=== PATIENT | female | born 1955 | race Caucasian/White ===

== ENCOUNTER → 2016-08-17 | Outpatient (CLI) | payer BC ==
--- NOTE | 2016-08-17 12:48 | MR ---
EXAMINATION TYPE: MR brain wo/w con DATE OF EXAM: 08/17/2016 8:16 AM COMPARISON: 02/04/2016 HISTORY: Left-sided facial nerve disorder left-sided face pain CONTRAST: Performed utilizing 10 mL intravenous MultiHance gadolinium contrast. TECHNIQUE: Multiplanar, multiecho imaging on a 3.0 Brandee magnet is performed through the brain. Stud y is performed within 24 hours of arrival to the hospital. The craniovertebral junction is normal. The pituitary is normal. Diffusion-weighted imaging is performed. No abnormal hyperintensity is present to suggest an acute i ntracranial infarct or acute ischemic change. Signal within the brain appears normal. No abnormal enhancement along the facial nerve distribution i s identified. Internal auditory canals and cerebellar pontine angles are normal. Ventricles and sulci are appropriate for the patient age. IMPRESSIONS: 1. Unremarkable pre and postcontrast MRI brain
== END ==
LOC: RADMRIMAIN 07:30
PROVIDERS: ATTEND Psychiatry & Neurology Neurology
DX: R51 Headache (principal); G51.9 Disorder of facial nerve, unspecified; Z91.041 Radiographic dye allergy status
CPT/HCPCS: 70553; A9577

== ENCOUNTER → 2016-10-28 | Outpatient (CLI) | payer BC ==
--- NOTE | 2016-10-31 10:58 | PE ---
Nuclear medicine PET/CT HISTORY: Solitary pulmonary nodule Patient received 13 mCi F-18 FDG intravenously. Delayed scanning performed from the skull base throug h the mid thighs. Localization and attenuation correction CT scan was performed. Correlation to CT of the chest 19 May 2016 Cavitary lesion in the left upper lobe is again noted. There is mild associated hypermetabolic uptake , SUV 2.2. Extensive emphysematous changes are present. There is no mediastinal, axillary, or hilar a denopathy. The heart is enlarged. Abdomen pelvis: No suspicious mass. No suspicious hypermetabolic uptake. Patient is post cholecystect rigoberto. Bowel uptake in the pelvis felt likely to be physiologic. Osseous structures: Degenerative disc changes, facet arthropathy noted at the lower lumbar spine. No suspicious hypermetabolic uptake IMPRESSION: Mild uptake in the left upper lobe lung nodule as described. Follow-up suggested.
== END | disposition home or self-care (01) ==
LOC: RADPETMAIN 08:05
PROVIDERS: ATTEND Internal Medicine Critical Care Medicine
DX: R91.1 Solitary pulmonary nodule (principal)
CPT/HCPCS: 78815; A9552

== ENCOUNTER 2016-11-22 10:12 | Day surgery (SDC) | payer BC ==
[2016-11-17 15:25] VITALS: BMI 18.6
[~2016-11-22 10:12] MED LIST: ALBUTEROL NEB (CONC) 2.5 MG/0.5 ML INHALATION ONE; ATROPINE SULFATE 0.4 MG/ML 1 ML VIAL IM ONE; DEXAMETHASONE SOD PHOSPHATE 10 MG/ML 1 ML VIAL IV ONE; HYDROmorphone 1 MG/ML 1 ML SYRINGE IVP PRN; LACTATED RINGERS 1,000 ML IV ONE; LACTATED RINGERS 1,000 ML IV SCH; LIDOCAINE 1% 20 ML VIAL (10MG/ML) FOR IV START INTRADERMA PRN; LIDOCAINE 2% (PF) 20 MG/ML 10ML INHALATION ONE; MIDAZOLAM 2 MG/2 ML VIAL IV PRN; ONDANSETRON 4 MG/2 ML VIAL IVP ONE; SCOPOLAMINE 1.5MG/72HR PATCH TRANSDERM ONE
[2016-11-22 10:41] VITALS: RESP 16
--- NOTE | 2016-11-22 12:07 | CT ---
EXAMINATION TYPE: CT Chest wo con Veran Protocol DATE OF EXAM: 11/22/2016 COMPARISON: PET/CT October 28, 2016 HISTORY: Solitary pulmonary nodule CT DLP: 511 mGycm Automated exposure control for dose reduction was used. FINDINGS: CT scan of the chest is performed without contrast using Veran protocol for bronchoscopy planning an d not for diagnostic purposes. There is background of moderate emphysematous change redemonstrated. There is 8mm spiculated nodule i n the left upper lobe redemonstrated. Dependent atelectatic change in both lower lobes is present. Mo derate calcified atherotic change in aortic arch is seen. Scattered calcifications in left breast or surgical clips are felt present. IMPRESSION: ABOVE
[2016-11-22] MEDS ORDERED: SUCCINYLCHOLINE CHLORIDE 100 MG/5 ML SYR IV ONE (12:35)
[2016-11-22] MEDS ORDERED: MIDAZOLAM 2 MG/2 ML VIAL ONE (12:35)
[2016-11-22] MEDS ORDERED: GLYCOPYRROLATE 0.2 MG/ML 2 ML VIAL ONE (12:35)
[2016-11-22] MEDS ORDERED: NEOSTIGMINE 1 MG/ML 10 ML VIAL ONE (12:35)
[2016-11-22] MEDS ORDERED: ROCURONIUM BROMIDE 10 MG/ML 10 ML VIAL IV ONE (12:35)
[2016-11-22] MEDS ORDERED: PROPOFOL 10 MG/ML 20 ML VIAL IV ONE (12:35)
[2016-11-22 13:56] VITALS: TEMP 97.4
--- NOTE | 2016-11-22 14:33 | XR ---
EXAMINATION TYPE: XR chest 1V DATE OF EXAM: 11/22/2016 COMPARISON: CT chest earlier today HISTORY: Post bronchoscopy TECHNIQUE: Single AP portable frontal upright view of the chest is obtained. FINDINGS: There is background chronic emphysematous change. New opacity left lung bases suggestive o f edema and/or infiltrates. Right lung is clear. The cardiac silhouette size is within normal limits with atherosclerotic thoracic aorta. The osseous structures are demineralized. IMPRESSION: Chronic emphysematous change with new left basilar edema and/or infiltrates. No evidence of sizable pneumothorax after bronchoscopy with left-sided sampling.
[2016-11-22 15:03] VITALS: BP 114/56; PULSE 73
[2016-11-22 19:19] LABS: RBC, Body Fluid 380800 /uL
--- NOTE | 2016-11-23 08:06 | PCN ---
DATE OF PROCEDURE: PROCEDURE: Navigational bronchoscopy. PREOPERATIVE DIAGNOSIS: Left upper lobe pulmonary nodule. POSTOPERATIVE DIAGNOSIS: Left upper lobe pulmonary nodule. Procedure was done by Dr. De La Cruz and Dr. Cifuentes. It was done in the operating room, Room #4. It was done under general anesthesia. There was informed consent and universal timeout. After the patient was adequately under the effects of general anesthesia, intubated, the bronchoscope was inserted through the bronchoscope adapter, connected to the endotracheal tube. We evaluated the left upper lobe. Prior to this we used the [employer] software to navigate and locate the lesion in the left upper lobe. We were able to locate the segment that we were interested in. Unfortunately, after multiple attempts and after more than an hour of attempting to adequately localize the lesion and do biopsies, needles and so forth, we were not able to adequately localize this lesion within the region. Hence, we went ahead and took a standard bronchoscope. We used a standard brush and brushed left upper lobe. We brushed those segments that we thought were where the lesion might be. We also washed the left upper lobe. We used multiple devices with the [employer] System. We used the biopsy forceps. We used the needle biopsy and we used also the flexible navigational scope. Despite all of this and despite a long time attempting to try to localize the lesion we were not able to do so. We will order a chest x-ray on this patient to rule out complication. There was no significant bleeding. There was no immediate complication. She was adequately stable throughout the entire procedure. I will speak to her let him know that we had some difficulty with localization and will just wait for sampling that we did.
== END 2016-11-22 15:12 | disposition home or self-care (01) ==
LOC: ORWHC2ENDO 10:12
PROVIDERS: ATTEND Internal Medicine Critical Care Medicine
DX: R91.1 Solitary pulmonary nodule (principal); J44.9 Chronic obstructive pulmonary disease, unspecified; M94.0 Chondrocostal junction syndrome [Tietze]; M35.00 Sjogren syndrome, unspecified; K21.9 Gastro-esophageal reflux disease without esophagitis; Z79.51 Long term (current) use of inhaled steroids; Z79.899 Other long term (current) drug therapy; Z88.0 Allergy status to penicillin; Z88.8 Allergy status to other drugs, medicaments and biological substances; Z88.1 Allergy status to other antibiotic agents; Z91.041 Radiographic dye allergy status; Z87.891 Personal history of nicotine dependence
CPT/HCPCS: 88104; 88108; 88305; 89050; 87070; 87205; 71010; 71250; 31628; 31623; 31627; J2250; J1100; J2710; J2405; J0330; J2704; 31624

== ENCOUNTER → 2017-03-12 | Outpatient (CLI) | payer BC ==
--- NOTE | 2017-03-12 09:40 | CT ---
EXAMINATION TYPE: CT chest w con DATE OF EXAM: 03/12/2017 COMPARISON: Prior CT chest 11/22/2016 HISTORY: Patient complains of difficulty breathing. Patient displays cough at time of exam. Follow up for known masses. CT DLP: 269 mGycm Automated exposure control for dose reduction was used. CONTRAST: CT scan of the chest is performed with IV Contrast, patient injected with 100 mL of Omnipaque 300. FINDINGS: LUNGS: The cavitary lesion in the left upper lobe has decreased in size, no central lucency persists, nodule measures approximately 7 to 8 mm by 14 mm as compared to prior when it measured approximately 10 to 11 mm by 19 mm. Extensive emphysematous changes are again noted. MEDIASTINUM: There are no greater than 1 cm hilar or mediastinal lymph nodes. No pericardial effusi on is seen. AORTA: No additional significant abnormality is seen. OTHER: No additional significant abnormality is seen. IMPRESSION: Cavitation has resolved in the left upper lobe nodule. Follow-up to assess for resolutio n. Emphysema.
== END | disposition home or self-care (01) ==
LOC: RADCTMAIN 08:26
PROVIDERS: ATTEND Internal Medicine Critical Care Medicine
DX: J43.9 Emphysema, unspecified (principal); R91.1 Solitary pulmonary nodule
CPT/HCPCS: 71260; Q9967

== ENCOUNTER 2017-06-05 11:50 | Inpatient (IN) | payer BC ==
[2017-06-05] MEDS ORDERED: IPRATROPIUM-ALBUTEROL 3 ML NEB INHALATION PRN (14:03)
[2017-06-05] MEDS ORDERED: methylPREDNISolone SOD SUCCI 125 MG/2 ML VIAL IV STA (14:19)
[2017-06-05] MEDS: AZITHROMYCIN 500 MG TAB PO SCH (14:41)
[2017-06-05] MEDS: HYDROXYCHLOROQUINE SULFATE 200 MG TAB PO SCH (14:41)
[2017-06-05] MEDS: PANTOPRAZOLE 40 MG TABLET PO SCH (14:42)
[2017-06-05] MEDS: SODIUM CHLORIDE 0.9% 1,000 ML IV SCH (14:42)
[2017-06-05] MEDS: cefTRIAXone IN SWFI 1,000 MG/10 ML SYRINGE IVP SCH (14:49)
[2017-06-05 15:17] LABS: HCT 44.3 % (34.0-46.0); HGB 14.5 gm/dL (11.4-16.0); MCH 30.2 pg (25.0-35.0); MCHC 32.7 g/dL (31.0-37.0); MCV 92.5 fL (80.0-100.0); Mean Platelet Volume 7.2; Platelet Count 111 k/uL (150-450); RBC 4.79 m/uL (3.80-5.40); RDW 14.4 % (11.5-15.5); WBC 3.8 k/uL (3.8-10.6)
[2017-06-05 15:21] LABS: ALT 39 U/L (9-52); AST 24 U/L (14-36); Alkaline Phosphatase 69 U/L (38-126); Anion Gap 10 mmol/L; Blood Urea Nitrogen 19 mg/dL (7-17); Calcium 9.3 mg/dL (8.4-10.2); Carbon Dioxide 29 mmol/L (22-30); Chloride 97 mmol/L (98-107); Glucose 91 mg/dL (74-99); Potassium 4.3 mmol/L (3.5-5.1); Sodium 136 mmol/L (137-145); Total Bilirubin 0.7 mg/dL (0.2-1.3); Total Protein 6.5 g/dL (6.3-8.2)
[2017-06-05 15:46] LABS: Lymphocytes # (M) 0.72 k/uL (1.0-4.8); Monocytes # (M) 0.27 k/uL (0-1.0); Neutrophils # (M) 2.81 k/uL (1.3-7.7); Neutrophils % (M) 74 %; Nucleated Red Blood Cells 0 /100 WBC (0-0); Polychromasia Present; Total Cells Counted 100
[2017-06-05] MEDS: IPRATROPIUM-ALBUTEROL 3 ML NEB INHALATION SCH ×2 (16:15→19:30)
[2017-06-05 17:04] LABS: Glucose,Whole Blood 104 mg/dL (75-99)
[2017-06-05] MEDS: INSULIN ASPART 100 UNIT/ML 1 ML 10 ML VIAL SQ SCH ×2 (17:28→21:36)
[2017-06-05] MEDS: methylPREDNISolone SOD SUCCI 125 MG/2 ML VIAL IV SCH ×2 (17:48→23:46)
[2017-06-05] MEDS: FORMOTEROL FUMARATE 20 MCG/2 ML NEBU INHALATION SCH (19:30)
[2017-06-05] MEDS ORDERED: BUDESONIDE 1 MG/2 ML NEBU INHALATION SCH (20:00)
[2017-06-05 21:12] LABS: Glucose,Whole Blood 221 mg/dL (75-99)
[2017-06-05] MEDS: GABAPENTIN 300 MG CAP PO SCH (21:35)
[2017-06-05] MEDS: HEPARIN SODIUM,PORCINE 5,000 UNIT/ML 1 ML VIAL SQ SCH (21:35)
[2017-06-05] MEDS: buPROPion SR 100 MG TABLET.ER PO SCH (21:35)
[2017-06-05 22:31] LABS: Hemoglobin A1C 5.8 % (4.0-6.0)
--- NOTE | 2017-06-05 22:45 | P.HPIM ---
History of Present Illness H&P Date: 06/05/17 Chief Complaint: Shortness of breath. direct admit from pulmonary clinic Patient is a 62-year-old female with known history of COPD on home oxygen, solitary pulmonary nodule followed by pulmonary, GERD and other medical problems was sent from pulmonary clinic due to pneumonia and COPD exacerbation Patient has been having worsening short of breath with subjective fevers at home. Patient went to see Dr. De La Cruz today and patient had chest x-ray showed pneumonia. Patient was sent to Hospital for further management. Otherwise patient denied any nausea vomiting or abdominal pain. No sick contacts. No recent travel. Patient was started on antibiotics in the form of azithromycin and ceftriaxone.. Patient was started on methylprednisolone and breathing treatments. Review of Systems Constitutional: Patient denies any fever or chills . No generalized weakness or weight loss. Abdomen: Patient denied nausea vomiting and diarrhea and abdominal pain. Cardiovascular: Patient denies any chest pain or short of breath no palpitations. Respiratory: Cough without sputum production. Positive shortness of breath Neurologic: Patient denied any numbness or tingling headache. Musculoskeletal: Patient denies any complaints of joint swelling or deformity. Skin: Negative Psychiatric: Negative Endocrine: No heat or cold intolerance. No recent weight gain. Genitourinary: No dysuria or hematuria. All other 14 point ROS negative except the above Past Medical History Past Medical History: COPD, GERD/Reflux, Pneumonia, Respiratory Disorder Additional Past Medical History / Comment(s): L/R lung nodules being monitored, home O2 at 2L/NC ATC mostly lately, SJORGEN'S SYNDROME, History of Any Multi-Drug Resistant Organisms: None Reported Past Surgical History: Cholecystectomy, Hysterectomy, Orthopedic Surgery Additional Past Surgical History / Comment(s): Bronchoscopies with bx, [place] wrist carpal tunnel, TMJ surgery, L neck cyst removed, colonoscopy. Past Anesthesia/Blood Transfusion Reactions: Previous Problems w/ Anesthesia Additional Past Anesthesia/Blood Transfusion Reaction / Comment(s): SLOW TO WAKE UP Smoking Status: Former smoker - Past Family History Father Family Medical History: Cancer Additional Family Medical History / Comment(s): LUNG Mother Family Medical History: Cancer Additional Family Medical History / Comment(s): BREAST Medications and Allergies Home Medications Medication Instructions Recorded Confirmed Type Gabapentin [Neurontin] 300 mg PO HS 03/29/15 06/05/17 History Hydroxychloroquine Sulfate 200 mg PO DAILY 03/29/15 06/05/17 History [Plaquenil] Pantoprazole Sodium [Protonix] 40 mg PO DAILY 03/29/15 06/05/17 History Fluticasone/Salmeterol [Advair 1 inhalation PO RT-BID 05/31/16 06/05/17 History 500-50 Diskus] Levalbuterol Tartrate [Xopenex Hfa 1 dose INHALATION RT-DAILY 05/31/16 06/05/17 History Inhaler] Tiotropium 18 Mcg/Puff [Spiriva] 1 cap INHALATION RT-DAILY 05/31/16 06/05/17 History Albuterol Nebulized [Ventolin 2.5 mg INHALATION RT-Q6H PRN 11/17/16 06/05/17 History Nebulized] buPROPion HCL [Wellbutrin SR] 100 mg PO BID 06/05/17 06/05/17 History Allergies Allergy/AdvReac Type Severity Reaction Status Date / Time banana Allergy Abdominal Verified 06/05/17 14:05 Pain budesonide [From Pulmicort] Allergy Dyspnea Verified 06/05/17 14:05 Iodinated Contrast- Oral and Allergy Anaphylaxis Verified 06/05/17 14:05 IV Dye [Iodinated Contrast Media - IV Dye] penicillin G Allergy Rash/Hives Verified 06/05/17 14:05 levofloxacin AdvReac joint pain Verified 06/05/17 14:05 verapamil AdvReac HEADACHE Verified 06/05/17 14:05 Physical Exam Vitals: Vital Signs Temp Pulse Pulse Resp BP Pulse Ox 06/05/17 16:24 104 H 06/05/17 16:17 108 H 06/05/17 14:27 112 H 06/05/17 14:22 108 H 06/05/17 14:08 98.7 F 108 H 22 143/88 93 L Intake and Output 06/05/17 06/05/17 06/05/17 06:59 14:59 22:59 Other: Weight 45.359 kg Patient Weight 06/06/17 06:59 Weight 45.359 kg PHYSICAL EXAMINATION: Patient is lying in the bed comfortably, no acute distress, awake alert and oriented.. HEENT: Normocephalic. Neck is supple. Pupils reactive. Nostrils clear. Oral cavity is moist. Ears reveal no drainage. Neck reveals no JVD, carotid bruits, or thyromegaly. CHEST EXAMINATION: Trachea is central. Symmetrical expansion. Bilateral diminished air entry and prolonged expiration with minimal wheezing and rhonchi. CARDIAC: Normal S1, S2 with no gallops. No murmurs ABDOMEN: Soft. Bowel sounds normal. No organomegaly. No abdominal bruits. Extremities: reveal no edema. No clubbing or cyanosis Neurologically awake, alert, oriented x3 with well-coordinated movements. No focal deficits noted Skin: No rash or skin lesions. Psychiatric: Operative. Nonsuicidal Musculoskeletal: No joint swelling or deformity. Normal range of motion. Results CBC & Chem 7: 06/05/17 14:44 06/05/17 14:44 Labs: Abnormal Lab Results - Last 24 Hours (Table) 06/05/17 06/05/17 Range/Units 14:44 14:44 Plt Count 111 L (150-450) k/uL Lymphocytes # (Manual) 0.72 L (1.0-4.8) k/uL Sodium 136 L (137-145) mmol/L Chloride 97 L (98-107) mmol/L BUN 19 H (7-17) mg/dL Creatinine 0.50 L (0.52-1.04) mg/dL Thrombosis Risk Factor Assmnt - DVT/VTE Prophylaxis DVT/VTE Prophylaxis: Pharmacologic Prophylaxis ordered - Choose All That Apply Any of the Below Risk Factors Present?: Yes Each Factor Represents 1 point: Abnormal pulmonary function (COPD), Serious lung disease incl. pneumonia (< 1month) Other Risk Factors: Yes Each Risk Factor Represents 2 Points: Age 61-74 years Other congenital or acquired thrombophilia - If yes, enter type in comment: No Thrombosis Risk Factor Assessment Total Risk Factor Score: 4 Thrombosis Risk Factor Assessment Level: Moderate Risk Assessment and Plan Assessment: Acute COPD exacerbation Pneumonia Chronic hypoxic respiratory failure secondary to COPD on home oxygen GERD Thrombocytopenia DVT prophylaxis Plan: Patient will be continued on methylprednisolone 60 mg every 6 hourly along with duo nebs. Continue with antibiotics. Continue with the DVT prophylaxis and follow closely. Pulmonary is on board area further recommendations based on the clinical course. Time with Patient: Greater than 30
[2017-06-06] MEDS: SODIUM CHLORIDE 0.9% 1,000 ML IV SCH (05:57)
[2017-06-06] MEDS: methylPREDNISolone SOD SUCCI 125 MG/2 ML VIAL IV SCH ×4 (06:02→23:29)
[2017-06-06] MEDS: IPRATROPIUM-ALBUTEROL 3 ML NEB INHALATION SCH ×4 (07:37→19:14)
[2017-06-06] MEDS: FORMOTEROL FUMARATE 20 MCG/2 ML NEBU INHALATION SCH ×2 (07:37→19:14)
[2017-06-06 07:50] LABS: Glucose,Whole Blood 121 mg/dL (75-99)
[2017-06-06] MEDS: INSULIN ASPART 100 UNIT/ML 1 ML 10 ML VIAL SQ SCH ×4 (07:55→21:00)
[2017-06-06] MEDS: cefTRIAXone IN SWFI 1,000 MG/10 ML SYRINGE IVP SCH (08:43)
[2017-06-06] MEDS: HEPARIN SODIUM,PORCINE 5,000 UNIT/ML 1 ML VIAL SQ SCH ×2 (08:45→21:02)
[2017-06-06] MEDS: buPROPion SR 100 MG TABLET.ER PO SCH ×2 (08:45→21:00)
[2017-06-06] MEDS: HYDROXYCHLOROQUINE SULFATE 200 MG TAB PO SCH (08:45)
[2017-06-06] MEDS: PANTOPRAZOLE 40 MG TABLET PO SCH (08:45)
[2017-06-06] MEDS: AZITHROMYCIN 500 MG TAB PO SCH (11:33)
--- NOTE | 2017-06-06 11:53 | XR ---
EXAMINATION TYPE: XR chest 1V portable DATE OF EXAM: 06/06/2017 COMPARISON: 06/05/2017 HISTORY: Cough and pneumonia TECHNIQUE: Single frontal view of the chest is obtained. FINDINGS: Diffuse emphysematous change. Surgical clips in the abdomen noted. Atherosclerotic change of the aorta. Diffuse osteopenia. No pleural effusion or pneumothorax. Coarsened interstitium is stable could be seen with chronic inte rstitial lung disease such as fibrosis. There is a vague nodular density in the left upper lobe measuring 1 cm. IMPRESSION: 1. COPD 2. 1 cm left upper lobe pulmonary nodule which is been reported by previous CT scan. Malignancy in th e differential diagnosis.
[2017-06-06 12:25] LABS: Glucose,Whole Blood 130 mg/dL (75-99)
--- NOTE | 2017-06-06 15:34 | P.CNPUL ---
History of Present Illness Consult date: 06/06/17 Reason for consult: dyspnea, COPD Chief complaint: Shortness of breath History of present illness: 62-year-old female with history of stage III/IV COPD. Her FEV1 value is 35% of predicted. She is oxygen dependent. The patient comes in today for complaints of shortness of breath chest congestion tightness and wheezing. She hasn't been feeling well for about 3 days. She had recently been admitted to the [facility] for a COPD exacerbation. She was nearly back to her baseline but recently her symptoms have recurred. She has a history of costochondritis severe COPD Sjogren syndrome chronic hypoxemia and a pulmonary nodule on the left upper lobe. We've been watching this nodule on the most recent scan show the nodule to be smaller in size with some central lucency suggesting cavitation. We are optimistic that maybe this did not represent cancer. PET scan in October 2016 revealed mild uptake in the left upper lobe nodule at 2.2 SUV. She is seen here today in consultation on the regular medical floor. She is awake and alert in no acute distress. She is having some dyspnea with minimal exertion. She has a loose nonproductive cough. No chills or night sweats. She is quite frail and cachectic. Currently weighs 100 pounds. Chest x-ray reveals evidence of chronic obstructive pulmonary disease. There is noted on centimeter left upper lobe pulmonary nodule. There is no leukocytosis. No fever. She is maintaining O2 saturations in the 90s on 3 L/m per nasal cannula. She's been hemodynamically stable. She has been initiated on antibiotics, bronchodilators and steroids. She is doing slightly better today as compared to yesterday. Review of Systems 14 point review of system was conducted. All negative other than as mentioned in HPI. Past Medical History Past Medical History: COPD, GERD/Reflux, Pneumonia, Respiratory Disorder Additional Past Medical History / Comment(s): COPD with an FEV of 35% , DONTE lung nodules being monitored measuring 8x14mm , home O2 at 2L/NC ATC mostly lately, SJORGEN'S SYNDROME History of Any Multi-Drug Resistant Organisms: None Reported Past Surgical History: Cholecystectomy, Hysterectomy, Orthopedic Surgery Additional Past Surgical History / Comment(s): Bronchoscopies with bx, [place] wrist carpal tunnel, TMJ surgery, L neck cyst removed, colonoscopy. Past Anesthesia/Blood Transfusion Reactions: Previous Problems w/ Anesthesia Additional Past Anesthesia/Blood Transfusion Reaction / Comment(s): SLOW TO WAKE UP Smoking Status: Former smoker - Past Family History Father Family Medical History: Cancer Additional Family Medical History / Comment(s): LUNG Mother Family Medical History: Cancer Additional Family Medical History / Comment(s): BREAST Medications and Allergies Home Medications Medication Instructions Recorded Confirmed Type Gabapentin [Neurontin] 300 mg PO HS 03/29/15 06/05/17 History Hydroxychloroquine Sulfate 200 mg PO DAILY 03/29/15 06/05/17 History [Plaquenil] Pantoprazole Sodium [Protonix] 40 mg PO DAILY 03/29/15 06/05/17 History Fluticasone/Salmeterol [Advair 1 inhalation PO RT-BID 05/31/16 06/05/17 History 500-50 Diskus] Levalbuterol Tartrate [Xopenex Hfa 1 dose INHALATION RT-DAILY 05/31/16 06/05/17 History Inhaler] Tiotropium 18 Mcg/Puff [Spiriva] 1 cap INHALATION RT-DAILY 05/31/16 06/05/17 History Albuterol Nebulized [Ventolin 2.5 mg INHALATION RT-Q6H PRN 11/17/16 06/05/17 History Nebulized] buPROPion HCL [Wellbutrin SR] 100 mg PO BID 06/05/17 06/05/17 History Allergies Allergy/AdvReac Type Severity Reaction Status Date / Time banana Allergy Abdominal Verified 06/05/17 14:05 Pain budesonide [From Pulmicort] Allergy Dyspnea Verified 06/05/17 14:05 Iodinated Contrast- Oral and Allergy Anaphylaxis Verified 06/05/17 14:05 IV Dye [Iodinated Contrast Media - IV Dye] penicillin G Allergy Rash/Hives Verified 06/05/17 14:05 levofloxacin AdvReac joint pain Verified 06/05/17 14:05 verapamil AdvReac HEADACHE Verified 06/05/17 14:05 Physical Exam Vitals: Vital Signs Temp Pulse Pulse Resp BP Pulse Ox 06/06/17 08:08 97.5 F L 82 17 117/63 93 L 06/06/17 08:01 100 06/06/17 07:50 100 06/06/17 07:49 100 06/06/17 07:37 104 H 06/05/17 23:00 97.8 F 89 18 124/73 96 06/05/17 19:45 102 H 06/05/17 19:38 99 06/05/17 19:37 99 06/05/17 19:32 96 06/05/17 16:24 104 H 06/05/17 16:17 108 H 06/05/17 14:27 112 H 06/05/17 14:22 108 H 06/05/17 14:15 22 06/05/17 14:08 98.7 F 108 H 22 143/88 93 L Intake and Output 06/05/17 06/06/17 06/06/17 22:59 06:59 14:59 Intake Total 600 600 200 Balance 600 600 200 Intake: Intake, IV Titration 600 600 Amount Sodium Chloride 0.9% 1, 600 600 000 ml @ 75 mls/hr IV . [id number] PAO Rx#:[id number] Oral 200 Other: # Voids 1 Weight 45.359 kg Frail, cachectic. Head exam was generally normal. There was no scleral icterus or corneal arcus. Mucous membranes were moist. Neck was supple and without jugular venous distension, thyromegaly, or carotid bruits. Carotids were easily palpable bilaterally. There was no adenopathy.Lungs were clear to auscultation and percussion, and with normal diaphragmatic excursion. No wheezes or rales were noted. Cardiac exam revealed the PMI to be normally situated and sized. The rhythm was regular and no extrasystoles were noted during several minutes of auscultation. The first and second heart sounds were normal and physiologic splitting of the second heart sound was noted. There were no murmurs, rubs, clicks, or gallops.Abdominal exam revealed normal bowel sounds. The abdomen was soft, non-tender, and without masses, organomegaly, or appreciable enlargement of the abdominal aorta. Examination of the extremities revealed easily palpable radial, femoral and pedal pulses. There was no cyanosis, clubbing or edema. Results - Laboratory Findings CBC and BMP: 06/05/17 14:44 06/05/17 14:44 Abnormal lab findings: Abnormal Labs 06/05/17 06/05/17 06/05/17 14:44 14:44 16:59 Plt Count 111 L Lymphocytes # (Manual) 0.72 L Sodium 136 L Chloride 97 L BUN 19 H Creatinine 0.50 L POC Glucose (mg/dL) 104 H 06/05/17 06/06/17 21:09 07:29 Plt Count Lymphocytes # (Manual) Sodium Chloride BUN Creatinine POC Glucose (mg/dL) 221 H 121 H - Diagnostic Findings Chest x-ray: image reviewed Assessment and Plan Assessment: Impression: #1 Acute exacerbation of severe cold stage III/IV oxygen dependent chronic obstructive pulmonary disease. FEV1 to 35% of predicted. #2 Acute and chronic hypoxic respiratory failure secondary to above. #3 Left upper lobe pulmonary nodule measuring 7-8 mm x 14 mm. Previously measured 10-11 mm x 19 mm. PET scan revealed a SUV of 2.2. 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 #5 History esophageal reflux disease. Plan: The patient was seen today in consultation. Her chest x-ray and labs were reviewed. We will continue her treatment for her COPD exacerbation. We'll continue his antibiotics, bronchodilators and IV Solu-Medrol. She was reassured regarding the left upper lobe pulmonary nodule. We will increase her activity as tolerated. Send heparin for DVT prophylaxis, Protonix for GI prophylaxis. We will continue to follow and make further recommendations based on her clinical status. Time with Patient: Greater than 30
[2017-06-06 17:48] LABS: Glucose,Whole Blood 149 mg/dL (75-99)
--- NOTE | 2017-06-06 19:22 | P.PN ---
Subjective Progress Note Date: 06/06/17 Progress note being dictated for Dr. Mcdonald. Interval history:Patient is a 62-year-old female with known history of COPD on home oxygen, solitary pulmonary nodule followed by pulmonary, GERD and other medical problems was sent from pulmonary clinic due to pneumonia and COPD exacerbation Patient has been having worsening short of breath with subjective fevers at home. Patient went to see Dr. De La Cruz today and patient had chest x-ray showed pneumonia. Patient was sent to Hospital for further management. Otherwise patient denied any nausea vomiting or abdominal pain. No sick contacts. No recent travel. Patient was started on antibiotics in the form of azithromycin and ceftriaxone.. Patient was started on methylprednisolone and breathing treatments. Review of Systems Constitutional: Patient denies any fever or chills . No generalized weakness or weight loss. Abdomen: Patient denied nausea vomiting and diarrhea and abdominal pain. Cardiovascular: Patient denies any chest pain or short of breath no palpitations. Respiratory: Cough without sputum production. Positive shortness of breath Neurologic: Patient denied any numbness or tingling headache. Musculoskeletal: Patient denies any complaints of joint swelling or deformity. Skin: Negative Psychiatric: Negative Endocrine: No heat or cold intolerance. No recent weight gain. Genitourinary: No dysuria or hematuria. All other 14 point ROS negative except the above 06/06/17 breathing improving, maintaining O2 sats in the low 90s on 3 L nasal cannula. Loose nonproductive cough. Chest x-ray reporting COPD, 1 cm left upper lobe pulmonary nodule as seen on prior computed tomography scan. Afebrile. Good diet intake with no nausea vomiting or diarrhea. Objective - Vital Signs Vital signs: Vital Signs Temp 98.7 F 06/06/17 15:56 Pulse 102 H 06/06/17 15:56 Resp 20 06/06/17 15:56 BP 125/63 06/06/17 15:56 Pulse Ox 92 L 06/06/17 15:56 Intake & Output 06/06/17 06/06/17 06/07/17 06:59 18:59 06:59 Intake Total 1200 200 Balance 1200 200 Weight 45.359 kg Intake: Intake, IV Titration 1200 Amount Sodium Chloride 0.9% 1, 1200 000 ml @ 75 mls/hr IV . [id number] [facility] Rx#:[id number] Oral 200 Other: # Voids 2 - Exam Patient is lying in the bed comfortably, no acute distress, awake alert and oriented.. HEENT: Normocephalic. Neck is supple. Pupils reactive. Nostrils clear. Oral cavity is moist. Ears reveal no drainage. Neck reveals no JVD, carotid bruits, or thyromegaly. CHEST EXAMINATION: Trachea is central. Symmetrical expansion. Bilateral diminished air entry, no wheezing, no rhonchi. CARDIAC: Normal S1, S2 with no gallops. No murmurs ABDOMEN: Soft. Bowel sounds normal. No organomegaly. No abdominal bruits. Extremities: reveal no edema. No clubbing or cyanosis Neurologically awake, alert, oriented x3 with well-coordinated movements. No focal deficits noted Skin: No rash or skin lesions. Psychiatric: Operative. Nonsuicidal Musculoskeletal: No joint swelling or deformity. Normal range of motion. - Labs CBC & Chem 7: 06/05/17 14:44 06/05/17 14:44 Labs: Abnormal Lab Results - Last 24 Hours (Table) 06/05/17 06/06/17 06/06/17 Range/Units 21:09 07:29 12:07 POC Glucose (mg/dL) 221 H 121 H 130 H (75-99) mg/dL 06/06/17 Range/Units 17:25 POC Glucose (mg/dL) 149 H (75-99) mg/dL Microbiology - Last 24 Hours (Table) 06/05/17 15:03 Blood Culture - Preliminary Blood No Growth after 24 hours 06/05/17 14:44 Blood Culture - Preliminary Blood No Growth after 24 hours Assessment and Plan Assessment: Acute COPD exacerbation Pneumonia Chronic hypoxic respiratory failure secondary to COPD on home oxygen GERD Thrombocytopenia DVT prophylaxis Left upper lobe pulmonary nodule, further follow-up outpatient Plan: Continue on current medication regime, nebulized bronchodilators, steroids , antibiotics, monitoring and symptomatic treatment. Aggressive pulmonary toileting. Increasing urination as tolerated. Further recommendations to follow. The impression and plan of care has been dictated as directed. : I performed a history and examination of this patient, discussed the same with the dictator. I agree with the dictator's note ,documented as a scribe. Any additional findings or plans will be noted.
[2017-06-06 20:33] LABS: Glucose,Whole Blood 176 mg/dL (75-99)
[2017-06-06] MEDS: GABAPENTIN 300 MG CAP PO SCH (21:00)
[2017-06-06 23:06] VITALS: BMI 17.6
[2017-06-07] MEDS: methylPREDNISolone SOD SUCCI 125 MG/2 ML VIAL IV SCH ×2 (05:30→11:56)
[2017-06-07] MEDS: FORMOTEROL FUMARATE 20 MCG/2 ML NEBU INHALATION SCH ×2 (07:45→19:23)
[2017-06-07] MEDS: IPRATROPIUM-ALBUTEROL 3 ML NEB INHALATION SCH ×4 (07:46→19:25)
[2017-06-07 07:47] LABS: Glucose,Whole Blood 126 mg/dL (75-99)
[2017-06-07] MEDS: INSULIN ASPART 100 UNIT/ML 1 ML 10 ML VIAL SQ SCH ×4 (07:58→20:52)
[2017-06-07] MEDS: buPROPion SR 100 MG TABLET.ER PO SCH ×2 (08:33→20:53)
[2017-06-07] MEDS: PANTOPRAZOLE 40 MG TABLET PO SCH (08:33)
[2017-06-07] MEDS: HEPARIN SODIUM,PORCINE 5,000 UNIT/ML 1 ML VIAL SQ SCH ×2 (08:33→20:52)
[2017-06-07] MEDS: cefTRIAXone IN SWFI 1,000 MG/10 ML SYRINGE IVP SCH (08:33)
[2017-06-07] MEDS: HYDROXYCHLOROQUINE SULFATE 200 MG TAB PO SCH (08:33)
[2017-06-07] MEDS: AZITHROMYCIN 500 MG TAB PO SCH (11:56)
[2017-06-07 12:33] LABS: Glucose,Whole Blood 138 mg/dL (75-99)
--- NOTE | 2017-06-07 17:20 | P.PN ---
Subjective Progress Note Date: 06/07/17 62-year-old female with history of stage III/IV COPD. Her FEV1 value is 35% of predicted. She is oxygen dependent. The patient comes in today for complaints of shortness of breath chest congestion tightness and wheezing. She hasn't been feeling well for about 3 days. She had recently been admitted to the [facility] for a COPD exacerbation. She was nearly back to her baseline but recently her symptoms have recurred. She has a history of costochondritis severe COPD Sjogren syndrome chronic hypoxemia and a pulmonary nodule on the left upper lobe. We've been watching this nodule on the most recent scan show the nodule to be smaller in size with some central lucency suggesting cavitation. We are optimistic that maybe this did not represent cancer. PET scan in October 2016 revealed mild uptake in the left upper lobe nodule at 2.2 SUV. She is seen here today in consultation on the regular medical floor. She is awake and alert in no acute distress. She is having some dyspnea with minimal exertion. She has a loose nonproductive cough. No chills or night sweats. She is quite frail and cachectic. Currently weighs 100 pounds. Chest x-ray reveals evidence of chronic obstructive pulmonary disease. There is noted on centimeter left upper lobe pulmonary nodule. There is no leukocytosis. No fever. She is maintaining O2 saturations in the 90s on 3 L/m per nasal cannula. She's been hemodynamically stable. She has been initiated on antibiotics, bronchodilators and steroids. She is doing slightly better today as compared to yesterday. On 06/07/2017 the patient reports marked improvement in her breathing. She is less short of breath compared to yesterday. No chest pain. No fever or chills. No other new complaints otherwise for now. No side effect of the offered treatment. She is progressing nicely and she may be potentially get discharged with the next 24 hours. There has been considerable improvement in her breathing over the past 24 hours. Objective - Vital Signs Vital signs: Vital Signs Temp 96.7 F L 06/07/17 15:00 Pulse 88 06/07/17 15:12 Resp 18 06/07/17 15:00 BP 134/63 06/07/17 15:00 Pulse Ox 98 06/07/17 15:00 Intake & Output 06/06/17 06/07/1718 18:59 06:59 18:59 Intake Total 200 240 Balance 200 240 Weight 45.359 kg 45.359 kg 45.359 kg Intake: Intake, IV Titration 240 Amount Sodium Chloride 0.9% 1, 240 000 ml @ 75 mls/hr IV . [id number] [facility] Rx#:[id number] Oral 200 Other: Voiding Method Bedside Commode # Voids 2 1 2 # Bowel Movements 1 - Exam Frail, cachectic. Head exam was generally normal. There was no scleral icterus or corneal arcus. Mucous membranes were moist. Neck was supple and without jugular venous distension, thyromegaly, or carotid bruits. Carotids were easily palpable bilaterally. There was no adenopathy.Lungs were clear to auscultation and percussion, and with normal diaphragmatic excursion. No wheezes or rales were noted. Cardiac exam revealed the PMI to be normally situated and sized. The rhythm was regular and no extrasystoles were noted during several minutes of auscultation. The first and second heart sounds were normal and physiologic splitting of the second heart sound was noted. There were no murmurs, rubs, clicks, or gallops.Abdominal exam revealed normal bowel sounds. The abdomen was soft, non-tender, and without masses, organomegaly, or appreciable enlargement of the abdominal aorta. Examination of the extremities revealed easily palpable radial, femoral and pedal pulses. There was no cyanosis, clubbing or edema. .Examination of the skin revealed no evidence of significant rashes, suspicious appearing nevi or other concerning lesions. Neurologically the patient is awake and alert and there is no focal neurological deficit at this point - Labs CBC & Chem 7: 06/05/17 14:44 06/05/17 14:44 Labs: Abnormal Lab Results - Last 24 Hours (Table) 06/06/17 06/06/17 06/07/17 Range/Units 17:25 20:31 07:27 POC Glucose (mg/dL) 149 H 176 H 126 H (75-99) mg/dL 06/07/17 Range/Units 12:26 POC Glucose (mg/dL) 138 H (75-99) mg/dL Microbiology - Last 24 Hours (Table) 06/05/17 14:44 Blood Culture - Preliminary Blood No Growth after 48 hours 06/05/17 15:03 Blood Culture - Preliminary Blood No Growth after 24 hours Assessment and Plan Assessment: Impression: #1 Acute exacerbation of severe cold stage III/IV oxygen dependent chronic obstructive pulmonary disease. FEV1 to 35% of predicted. #2 Acute and chronic hypoxic respiratory failure secondary to above. #3 Left upper lobe pulmonary nodule measuring 7-8 mm x 14 mm. Previously measured 10-11 mm x 19 mm. PET scan revealed a SUV of 2.2. 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 #5 History esophageal reflux disease. Plan: Patient is improving. Continue current treatment. Potential discharge within the next 24 hours as the patient continues to show signs of improvement.
[2017-06-07 17:23] LABS: Glucose,Whole Blood 121 mg/dL (75-99)
[2017-06-07 20:34] LABS: Glucose,Whole Blood 158 mg/dL (75-99)
[2017-06-07] MEDS: methylPREDNISolone SOD SUCCI 40 MG/ML 1 ML VIAL IV SCH ×2 (20:52→23:19)
[2017-06-07] MEDS: GABAPENTIN 300 MG CAP PO SCH (20:53)
[2017-06-08] MEDS: IPRATROPIUM-ALBUTEROL 3 ML NEB INHALATION SCH ×3 (07:34→15:28)
[2017-06-08] MEDS: FORMOTEROL FUMARATE 20 MCG/2 ML NEBU INHALATION SCH (07:34)
[2017-06-08 07:35] LABS: Glucose,Whole Blood 97 mg/dL (75-99)
[2017-06-08 07:46] VITALS: BP 125/48; RESP 18; TEMP 96.8
[2017-06-08 08:24] LABS: Anion Gap 8 mmol/L; Basophils % (A) 1 %; Blood Urea Nitrogen 16 mg/dL (7-17); Calcium 9.6 mg/dL (8.4-10.2); Carbon Dioxide 34 mmol/L (22-30); Chloride 100 mmol/L (98-107); Eosinophils % (A) 0 %; Glucose 91 mg/dL (74-99); HCT 40.7 % (34.0-46.0); HGB 12.7 gm/dL (11.4-16.0); Lymphocytes # (A) 0.8 k/uL (1.0-4.8); Lymphocytes % (A) 14 %; MCH 29.3 pg (25.0-35.0); MCHC 31.1 g/dL (31.0-37.0); MCV 94.2 fL (80.0-100.0); Mean Platelet Volume 7.4; Monocytes # (A) 0.5 k/uL (0-1.0); Monocytes % (A) 8 %; Neutrophils # (A) 4.3 k/uL (1.3-7.7); Neutrophils % (A) 74 %; Potassium 4.4 mmol/L (3.5-5.1); RBC 4.32 m/uL (3.80-5.40); RDW 14.4 % (11.5-15.5); Sodium 142 mmol/L (137-145); WBC 5.8 k/uL (3.8-10.6)
[2017-06-08] MEDS: buPROPion SR 100 MG TABLET.ER PO SCH (08:24)
[2017-06-08] MEDS: INSULIN ASPART 100 UNIT/ML 1 ML 10 ML VIAL SQ SCH ×2 (08:24→12:28)
[2017-06-08] MEDS: PANTOPRAZOLE 40 MG TABLET PO SCH (08:24)
[2017-06-08] MEDS: methylPREDNISolone SOD SUCCI 40 MG/ML 1 ML VIAL IV SCH (08:24)
[2017-06-08] MEDS: cefTRIAXone IN SWFI 1,000 MG/10 ML SYRINGE IVP SCH (08:24)
[2017-06-08] MEDS: HEPARIN SODIUM,PORCINE 5,000 UNIT/ML 1 ML VIAL SQ SCH (08:24)
[2017-06-08] MEDS: HYDROXYCHLOROQUINE SULFATE 200 MG TAB PO SCH (08:25)
[2017-06-08 08:26] LABS: Platelet Count 183 k/uL (150-450)
[2017-06-08 11:46] VITALS: PULSE 76
[2017-06-08] MEDS: AZITHROMYCIN 500 MG TAB PO SCH (12:28)
--- NOTE | 2017-06-08 12:40 | P.PN ---
Subjective Progress Note Date: 06/08/17 62-year-old female with history of stage III/IV COPD. Her FEV1 value is 35% of predicted. She is oxygen dependent. The patient comes in today for complaints of shortness of breath chest congestion tightness and wheezing. She hasn't been feeling well for about 3 days. She had recently been admitted to the [facility] for a COPD exacerbation. She was nearly back to her baseline but recently her symptoms have recurred. She has a history of costochondritis severe COPD Sjogren syndrome chronic hypoxemia and a pulmonary nodule on the left upper lobe. We've been watching this nodule on the most recent scan show the nodule to be smaller in size with some central lucency suggesting cavitation. We are optimistic that maybe this did not represent cancer. PET scan in October 2016 revealed mild uptake in the left upper lobe nodule at 2.2 SUV. She is seen here today in consultation on the regular medical floor. She is awake and alert in no acute distress. She is having some dyspnea with minimal exertion. She has a loose nonproductive cough. No chills or night sweats. She is quite frail and cachectic. Currently weighs 100 pounds. Chest x-ray reveals evidence of chronic obstructive pulmonary disease. There is noted on centimeter left upper lobe pulmonary nodule. There is no leukocytosis. No fever. She is maintaining O2 saturations in the 90s on 3 L/m per nasal cannula. She's been hemodynamically stable. She has been initiated on antibiotics, bronchodilators and steroids. She is doing slightly better today as compared to yesterday. On 06/07/2017 the patient reports marked improvement in her breathing. She is less short of breath compared to yesterday. No chest pain. No fever or chills. No other new complaints otherwise for now. No side effect of the offered treatment. She is progressing nicely and she may be potentially get discharged with the next 24 hours. There has been considerable improvement in her breathing over the past 24 hours. On 06/08/2016 I'm seeing this patient for a follow-up. The patient was hospitalized 2 days ago for an acute COPD exacerbation. I saw yesterday and she was already feeling much better. On today's evaluation the patient is doing well. He is in good spirits. I think she is back to her baseline and I think she is ready to get discharged home to finish a course of prednisone burst taper now outpatient basis. No fever. No chills. No other new complaints otherwise for now. Objective - Vital Signs Vital signs: Vital Signs Temp 96.8 F L 06/08/17 07:00 Pulse 76 06/08/17 11:46 Resp 18 06/08/17 07:00 BP 125/48 06/08/17 07:00 Pulse Ox 93 L 06/08/17 07:36 Intake & Output 06/07/17 06/08/17 06/08/17 18:59 06:59 18:59 Intake Total 240 Balance 240 Weight 45.359 kg 45.359 kg Intake: Intake, IV Titration 240 Amount Sodium Chloride 0.9% 1, 240 000 ml @ 75 mls/hr IV . [id number] [facility] [place] Rx#:[id number] Other: Voiding Method Bedside Commode # Voids 2 2 # Bowel Movements 1 - Exam Frail, cachectic. Head exam was generally normal. There was no scleral icterus or corneal arcus. Mucous membranes were moist. Neck was supple and without jugular venous distension, thyromegaly, or carotid bruits. Carotids were easily palpable bilaterally. There was no adenopathy.Lungs were clear to auscultation and percussion, and with normal diaphragmatic excursion. No wheezes or rales were noted. Cardiac exam revealed the PMI to be normally situated and sized. The rhythm was regular and no extrasystoles were noted during several minutes of auscultation. The first and second heart sounds were normal and physiologic splitting of the second heart sound was noted. There were no murmurs, rubs, clicks, or gallops.Abdominal exam revealed normal bowel sounds. The abdomen was soft, non-tender, and without masses, organomegaly, or appreciable enlargement of the abdominal aorta. Examination of the extremities revealed easily palpable radial, femoral and pedal pulses. There was no cyanosis, clubbing or edema. .Examination of the skin revealed no evidence of significant rashes, suspicious appearing nevi or other concerning lesions. Neurologically the patient is awake and alert and there is no focal neurological deficit at this point - Labs CBC & Chem 7: 06/08/17 07:36 06/08/17 07:36 Labs: Abnormal Lab Results - Last 24 Hours (Table) 06/07/17 06/07/17 06/08/17 Range/Units 17:17 20:33 07:36 Lymphocytes # 0.8 L (1.0-4.8) k/uL Carbon Dioxide (22-30) mmol/L Creatinine (0.52-1.04) mg/dL POC Glucose (mg/dL) 121 H 158 H (75-99) mg/dL 06/08/17 Range/Units 07:36 Lymphocytes # (1.0-4.8) k/uL Carbon Dioxide 34 H (22-30) mmol/L Creatinine 0.44 L (0.52-1.04) mg/dL POC Glucose (mg/dL) (75-99) mg/dL Microbiology - Last 24 Hours (Table) 06/05/17 15:03 Blood Culture - Preliminary Blood No Growth after 48 hours 06/05/17 14:44 Blood Culture - Preliminary Blood No Growth after 48 hours Assessment and Plan Assessment: Impression: #1 Acute exacerbation of severe cold stage III/IV oxygen dependent chronic obstructive pulmonary disease. FEV1 to 35% of predicted. #2 Acute and chronic hypoxic respiratory failure secondary to above. #3 Left upper lobe pulmonary nodule measuring 7-8 mm x 14 mm. Previously measured 10-11 mm x 19 mm. PET scan revealed a SUV of 2.2. 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 #5 History esophageal reflux disease. Plan: Has recovered from the acute COPD exacerbation. I am clearing this patient for discharge and she can be followed up by Dr. Dial on outpatient basis. She is also to follow-up on her left upper lobe pulmonary nodule to make sure there is no interval progression of this left upper lobe lesion. She can discharge home in a prednisone burst taper, a course of Zithromax in addition to routine bronchodilators. He is already on Advair and Spiriva which are excellent shows regarding COPD maintenance.
[2017-06-08 12:54] LABS: Glucose,Whole Blood 98 mg/dL (75-99)
--- NOTE | 2017-06-08 20:03 | P.PN ---
Subjective Progress Note Date: 06/07/17 Progress note being dictated for Dr. Mcdonald. Interval history:Patient is a 62-year-old female with known history of COPD on home oxygen, solitary pulmonary nodule followed by pulmonary, GERD and other medical problems was sent from pulmonary clinic due to pneumonia and COPD exacerbation Patient has been having worsening short of breath with subjective fevers at home. Patient went to see Dr. De La Cruz today and patient had chest x-ray showed pneumonia. Patient was sent to Hospital for further management. Otherwise patient denied any nausea vomiting or abdominal pain. No sick contacts. No recent travel. Patient was started on antibiotics in the form of azithromycin and ceftriaxone.. Patient was started on methylprednisolone and breathing treatments. Review of Systems Constitutional: Patient denies any fever or chills . No generalized weakness or weight loss. Abdomen: Patient denied nausea vomiting and diarrhea and abdominal pain. Cardiovascular: Patient denies any chest pain or short of breath no palpitations. Respiratory: Cough without sputum production. Positive shortness of breath Neurologic: Patient denied any numbness or tingling headache. Musculoskeletal: Patient denies any complaints of joint swelling or deformity. Skin: Negative Psychiatric: Negative Endocrine: No heat or cold intolerance. No recent weight gain. Genitourinary: No dysuria or hematuria. All other 14 point ROS negative except the above 06/06/17 breathing improving, maintaining O2 sats in the low 90s on 3 L nasal cannula. Loose nonproductive cough. Chest x-ray reporting COPD, 1 cm left upper lobe pulmonary nodule as seen on prior computed tomography scan. Afebrile. Good diet intake with no nausea vomiting or diarrhea. 06/07/2017. No overnight events. Breathing continues to improve. Denies chest pain, palpitations or increasing shortness of breath. Afebrile. Objective - Vital Signs Vital signs: Vital Signs Temp 96.7 F L 06/07/17 15:00 Pulse 88 06/07/17 15:12 Resp 18 06/07/17 15:00 BP 134/63 06/07/17 15:00 Pulse Ox 98 06/07/17 15:00 Intake & Output 06/06/17 06/07/17 06/07/17 18:59 06:59 18:59 Intake Total 200 240 Balance 200 240 Weight 45.359 kg 45.359 kg 45.359 kg Intake: Intake, IV Titration 240 Amount Sodium Chloride 0.9% 1, 240 000 ml @ 75 mls/hr IV . [id number] [facility] Rx#:[id number] Oral 200 Other: Voiding Method Bedside Commode # Voids 2 1 2 # Bowel Movements 1 - Exam Patient is sitting up in the bed comfortably, no acute distress, awake alert and oriented.. HEENT: Normocephalic. Neck is supple. Pupils reactive. Nostrils clear. Oral cavity is moist. Ears reveal no drainage. Neck reveals no JVD, carotid bruits, or thyromegaly. CHEST EXAMINATION: Trachea is central. Symmetrical expansion. Bilateral diminished air entry, no wheezing, no rhonchi. CARDIAC: Normal S1, S2 with no gallops. No murmurs ABDOMEN: Soft. Bowel sounds normal. No organomegaly. No abdominal bruits. Extremities: reveal no edema. No clubbing or cyanosis Neurologically awake, alert, oriented x3 with well-coordinated movements. No focal deficits noted Skin: No rash or skin lesions. Psychiatric: Operative. Nonsuicidal Musculoskeletal: No joint swelling or deformity. Normal range of motion. - Labs CBC & Chem 7: 06/08/17 07:36 06/08/17 07:36 Labs: Abnormal Lab Results - Last 24 Hours (Table) 06/06/17 06/07/17 06/07/17 Range/Units 20:31 07:27 12:26 POC Glucose (mg/dL) 176 H 126 H 138 H (75-99) mg/dL 06/07/17 Range/Units 17:17 POC Glucose (mg/dL) 121 H (75-99) mg/dL Microbiology - Last 24 Hours (Table) 06/05/17 15:03 Blood Culture - Preliminary Blood No Growth after 48 hours 06/05/17 14:44 Blood Culture - Preliminary Blood No Growth after 48 hours Assessment and Plan Assessment: Acute COPD exacerbation Pneumonia Chronic hypoxic respiratory failure secondary to COPD on home oxygen GERD Thrombocytopenia DVT prophylaxis Left upper lobe pulmonary nodule, further follow-up outpatient Plan: Continue on current medication regime, nebulized bronchodilators, steroids , antibiotics, monitoring and symptomatic treatment. Aggressive pulmonary toileting. Increase ambulation as tolerated. Discharge planning in progress for tomorrow. The impression and plan of care has been dictated as directed. : I performed a history and examination of this patient, discussed the same with the dictator. I agree with the dictator's note ,documented as a scribe. Any additional findings or plans will be noted.
--- NOTE | 2017-06-09 09:02 | DS ---
DISCHARGE SUMMARY DATE OF SERVICE: 06/08/2017 FINAL DIAGNOSES: 1. Chronic obstructive pulmonary disease acute exacerbation with acute pneumonia. 2. Possibly gram-negative. 3. Chronic hypoxic respiratory failure secondary to chronic obstructive pulmonary disease. 4. Gastroesophageal reflux disease. 5. Thrombocytopenia. 6. History of DVT prophylaxis. 7. Left upper lobe pulmonary nodule. DISCHARGE DISPOSITION: The patient is being discharged in stable condition with guarded prognosis. HISTORY OF PRESENT ILLNESS: This 62-year-old woman with past medical history of multiple medical problems is being followed by Dr. De La Cruz in the outpatient setting was admitted with COPD exacerbation from Pulmonary Clinic. Patient treated with bronchodilators, steroids, antibiotics. Dr. Munson saw the patient. Dr. Munson cleared the patient for discharge. On exam, vitals are stable. Cardiovascular is S1, S2. Abdomen is soft. Nervous System: No focal deficits. DISCHARGE ADVICE: 1. Diet is cardiac. 2. Activity limited until follow up. 3. Follow with Dr. De La Cruz in a few days. MEDICATIONS: 1. Albuterol and Atrovent updraft q.i.d. and p.r.n. 2. Zithromax 500 mg p.o. daily for 5 days. 3. Wellbutrin XR 100 mg p.o. b.i.d. 4. Advair 1 puff b.i.d. 5. Neurontin 300 mg q.h.s. 6. Plaquenil 200 mg b.i.d. 7. Xopenex HFA p.r.n. 8. Protonix 40 mg b.i.d. 9. Prednisone taper that will be 40 mg daily for 3 days, 30 for 3 days, 20 for 3 days, 10 for 3 days and then stop. 10.Spiriva 1 puff daily. Once again, the patient will be discharged in stable condition with guarded prognosis. MMODL / IJN: [id number] /
== END 2017-06-08 16:40 | disposition home or self-care (01) | DRG 177 ==
LOC: 4MS4W 13:40
PROVIDERS: ADMIT Hospitalist; ATTEND Hospitalist
DX: J15.6 Pneumonia due to other Gram-negative bacteria (principal); J96.21 Acute and chronic respiratory failure with hypoxia; D69.6 Thrombocytopenia, unspecified; R64 Cachexia; M35.00 Sjogren syndrome, unspecified; Z99.81 Dependence on supplemental oxygen; J44.0 Chronic obstructive pulmonary disease with (acute) lower respiratory infection; J44.1 Chronic obstructive pulmonary disease with (acute) exacerbation; K21.9 Gastro-esophageal reflux disease without esophagitis; R63.0 Anorexia; R91.1 Solitary pulmonary nodule; Z79.899 Other long term (current) drug therapy; Z87.891 Personal history of nicotine dependence; Z90.710 Acquired absence of both cervix and uterus; Z88.1 Allergy status to other antibiotic agents; Z91.041 Radiographic dye allergy status; Z88.0 Allergy status to penicillin; Z88.8 Allergy status to other drugs, medicaments and biological substances; Z91.018 Allergy to other foods
CPT/HCPCS: 71045; 80048; 80053; 83036; 83735; 85025; 87040; 87502; 94640; 94760

== ENCOUNTER → 2017-12-18 | Outpatient (CLI) | payer BC ==
--- NOTE | 2017-12-18 11:35 | CT ---
EXAMINATION TYPE: CT chest w con DATE OF EXAM: 12/18/2017 COMPARISON: Prior CT chest 03/12/[address] 11/22/2016 HISTORY: Rt lung mass CT DLP: 359 mGycm Automated exposure control for dose reduction was used. CONTRAST: CT scan of the chest is performed with IV Contrast, patient injected with 100 mL of Isovue 300. FINDINGS: LUNGS: There is stable appearance to the scarring in the left upper lobe, no cavitary lesion is evide nt, diffuse emphysematous changes are again noted. There is a hiatal hernia present. No pneumothorax or pleural effusion. MEDIASTINUM: There are no greater than 1 cm hilar or mediastinal lymph nodes. No pericardial effusi on is seen. AORTA: No significant interval change is seen. OTHER: Bones are stable. Patient is post cholecystectomy. Liver shows low attenuation as on prior. IMPRESSION: Scarring in the left upper lobe, interval resolution of cavitary lesion. Emphysema. Jose J tional findings above.
== END | disposition home or self-care (01) ==
LOC: RADCTMAIN 09:25
PROVIDERS: ATTEND Internal Medicine Critical Care Medicine
DX: J43.9 Emphysema, unspecified (principal); J98.4 Other disorders of lung; Z88.0 Allergy status to penicillin; Z88.8 Allergy status to other drugs, medicaments and biological substances; Z91.041 Radiographic dye allergy status; Z88.1 Allergy status to other antibiotic agents
CPT/HCPCS: 71260; Q9967

== ENCOUNTER → 2018-04-04 | Outpatient (CLI) | payer BC ==
--- NOTE | 2018-04-05 07:34 | CT ---
EXAMINATION TYPE: CT chest w con DATE OF EXAM: 04/04/2018 COMPARISON: 12/18/2017 HISTORY: cough, difficulty breathing CT DLP: 370 mGycm, Automated exposure control for dose reduction was used. CONTRAST: Performed injected with 100 mL of Isovue 300. TECHNIQUE: Axial images were obtained at 5 mm thick sections. Reconstructed images are reviewed on Exam[employer] computer in the coronal plane. FINDINGS: Portion of the thyroid visualized is normal. No suspicious lung nodules or focal infiltrates are present. Extensive emphysematous changes are pres ent. Suspected left upper lobe scarring appears stable. No enlarged mediastinal or hilar adenopathy is evident. A few shoddy lymph nodes are present within the aortopulmonic window. The ascending aorta diameter at the level of the main pulmonary artery is 3.1 cm. The main pulmonary artery diameter at the bifurcation is 2.[address] sections are obtained through the upper abdomen. Abdomen is essentially unremarkable. IMPRESSIONS: 1. COPD.
== END | disposition home or self-care (01) ==
LOC: RADCTMAIN 15:41
PROVIDERS: ATTEND Internal Medicine Critical Care Medicine
DX: J44.9 Chronic obstructive pulmonary disease, unspecified (principal); Z88.0 Allergy status to penicillin; Z88.8 Allergy status to other drugs, medicaments and biological substances; Z91.041 Radiographic dye allergy status
CPT/HCPCS: 71260; Q9967

== ENCOUNTER 2018-11-03 06:15 | Inpatient (IN) | payer BC ==
[2018-11-03] MEDS ORDERED: IPRATROPIUM-ALBUTEROL 3 ML NEB INHALATION STA (07:15)
[2018-11-03] MEDS ORDERED: SODIUM CHLORIDE 0.9% 500 ML 500 ML IV STA (07:15)
[2018-11-03] MEDS ORDERED: methylPREDNISolone SOD SUCCI 125 MG/2 ML VIAL IV STA (07:15)
[2018-11-03] MEDS ORDERED: HYDROmorphone 0.5 MG/0.5 ML SYRINGE IVP STA (07:16)
[2018-11-03] MEDS ORDERED: ONDANSETRON 4 MG/2 ML VIAL IVP STA (07:16)
--- NOTE | 2018-11-03 07:34 | ED ---
General Adult HPI - General Chief complaint: Extremity Injury, Lower Stated complaint: Hip Pain Time Seen by Provider: 11/03/18 06:59 Source: patient, EMS, RN notes reviewed Mode of arrival: EMS Limitations: no limitations - History of Present Illness Initial comments: 63-year-old female presents emergency Department chief complaint of right hip pain. Patient states that she injured herself moving a table one week ago. Patient did see orthopedics Dr. Muñoz who felt that she may have just strained or injured around the nerve. Patient states that she was not getting better she did have CT performed at [facility] which shows evidence of pelvic fracture. Patient states she cannot weight-bear she cannot take care of herself at home and she is declining health. Patient states she does have severe COPD and is normally not on oxygen 24 7 to she's been requiring more use of it currently. Patient states she was given fentanyl by EMS which did help but states his brain off at this time. Patient has no abdominal pain including nausea and diarrhea constipation. Denies any chest pain - Related Data Home Medications Medication Instructions Recorded Confirmed Gabapentin [Neurontin] 300 mg PO HS 03/29/15 11/03/18 Hydroxychloroquine Sulfate 200 mg PO DAILY 03/29/15 11/03/18 [Plaquenil] Pantoprazole Sodium [Protonix] 40 mg PO DAILY 03/29/15 11/03/18 Fluticasone/Salmeterol [Advair 1 puff INHALATION RT-BID 05/31/16 11/03/18 500-50 Diskus] Levalbuterol Tartrate [Xopenex Hfa 1 puff INHALATION RT-DAILY 05/31/16 11/03/18 Inhaler] Tiotropium 18 Mcg/Puff [Spiriva] 1 cap INHALATION RT-DAILY 05/31/16 11/03/18 buPROPion HCL [Wellbutrin SR] 100 mg PO BID 06/05/17 11/03/18 Allergies Allergy/AdvReac Type Severity Reaction Status Date / Time banana Allergy Abdominal Verified 11/03/18 09:06 Pain budesonide [From Pulmicort] Allergy Dyspnea Verified 11/03/18 09:06 Iodinated Contrast- Oral and Allergy Anaphylaxis Verified 11/03/18 09:06 IV Dye [Iodinated Contrast Media - IV Dye] penicillin G Allergy Rash/Hives Verified 11/03/18 09:06 levofloxacin AdvReac joint pain Verified 11/03/18 09:06 verapamil AdvReac HEADACHE Verified 11/03/18 09:06 Review of Systems ROS Statement: Those systems with pertinent positive or pertinent negative responses have been documented in the HPI. ROS Other: All systems not noted in ROS Statement are negative. Past Medical History Past Medical History: COPD, GERD/Reflux, Pneumonia, Respiratory Disorder Additional Past Medical History / Comment(s): COPD with an FEV of 35% , DONTE lung nodules being monitored measuring 8x14mm , home O2 at 2L/NC ATC mostly lately, SJORGEN'S SYNDROME History of Any Multi-Drug Resistant Organisms: None Reported Past Surgical History: Cholecystectomy, Hysterectomy, Orthopedic Surgery Additional Past Surgical History / Comment(s): Bronchoscopies with bx, [place] wrist carpal tunnel, TMJ surgery, L neck cyst removed, colonoscopy. Past Anesthesia/Blood Transfusion Reactions: Previous Problems w/ Anesthesia Additional Past Anesthesia/Blood Transfusion Reaction / Comment(s): SLOW TO WAKE UP Past Psychological History: No Psychological Hx Reported Smoking Status: Former smoker - Past Family History Father Family Medical History: Cancer Additional Family Medical History / Comment(s): LUNG Mother Family Medical History: Cancer Additional Family Medical History / Comment(s): BREAST General Exam Limitations: no limitations General appearance: alert, in no apparent distress Head exam: Present: atraumatic, normocephalic, normal inspection Eye exam: Present: normal appearance, PERRL, EOMI. Absent: scleral icterus, conjunctival injection, periorbital swelling ENT exam: Present: normal exam, normal oropharynx, mucous membranes moist Neck exam: Present: normal inspection, full ROM. Absent: tenderness, meningismus, lymphadenopathy Respiratory exam: Present: wheezes. Absent: normal lung sounds bilaterally, respiratory distress, rales, rhonchi, stridor Cardiovascular Exam: Present: regular rate, normal rhythm, normal heart sounds. Absent: systolic murmur, diastolic murmur, rubs, gallop, clicks GI/Abdominal exam: Present: soft, normal bowel sounds. Absent: distended, tenderness, guarding, rebound, rigid Extremities exam: Present: other (Right hip region there is moderate tenderness to palpation, pain with range of motion, lower legs neurovascular intact) Back exam: Present: full ROM. Absent: tenderness Neurological exam: Present: alert, oriented X3, CN II-XII intact Course Vital Signs 11/03/18 11/03/18 11/03/18 06:17 07:53 08:03 Temperature 97.6 F Pulse Rate 89 100 100 Respiratory 20 Rate Blood Pressure 141/69 O2 Sat by Pulse 88 L Oximetry Medical Decision Making - Medical Decision Making 63-year-old female presented for pain in her pelvis. Patient has a sacral fracture on computed tomography scan. Patient also has COPD exacerbation patient will be admitted - Lab Data Result diagrams: 11/03/18 08:05 11/03/18 08:05 Lab Results 11/03/18 11/03/18 11/03/18 Range/Units 08:05 08:05 08:05 WBC 10.5 (3.8-10.6) k/uL RBC 4.98 (3.80-5.40) m/uL Hgb 14.6 (11.4-16.0) gm/dL Hct 45.5 (34.0-46.0) % MCV 91.3 (80.0-100.0) fL MCH 29.3 (25.0-35.0) pg MCHC 32.1 (31.0-37.0) g/dL RDW 15.2 (11.5-15.5) % Plt Count 199 (150-450) k/uL Neutrophils % 85 % Lymphocytes % 9 % Monocytes % 4 % Eosinophils % 1 % Basophils % 0 % Neutrophils # 8.9 H (1.3-7.7) k/uL Lymphocytes # 1.0 (1.0-4.8) k/uL Monocytes # 0.4 (0-1.0) k/uL Eosinophils # 0.1 (0-0.7) k/uL Basophils # 0.0 (0-0.2) k/uL PT (9.0-12.0) sec INR (<1.2) APTT (22.0-30.0) sec Sodium 136 L (137-145) mmol/L Potassium 3.8 (3.5-5.1) mmol/L Chloride 98 (98-107) mmol/L Carbon Dioxide 32 H (22-30) mmol/L Anion Gap 6 mmol/L BUN 17 (7-17) mg/dL Creatinine 0.38 L (0.52-1.04) mg/dL Est GFR (CKD-EPI)AfAm >90 (>60 ml/min/1.73 sqM) Est GFR (CKD-EPI)NonAf >90 (>60 ml/min/1.73 sqM) Glucose 65 L (74-99) mg/dL Calcium 8.6 (8.4-10.2) mg/dL Magnesium 2.0 (1.6-2.3) mg/dL Total Bilirubin 1.0 (0.2-1.3) mg/dL AST 27 (14-36) U/L ALT 31 (9-52) U/L Alkaline Phosphatase 80 (38-126) U/L NT-Pro-B Natriuret Pep 1090 pg/mL Total Protein 5.5 L (6.3-8.2) g/dL Albumin 3.4 L (3.5-5.0) g/dL 11/03/18 Range/Units 08:05 WBC (3.8-10.6) k/uL RBC (3.80-5.40) m/uL Hgb (11.4-16.0) gm/dL Hct (34.0-46.0) % MCV (80.0-100.0) fL MCH (25.0-35.0) pg MCHC (31.0-37.0) g/dL RDW (11.5-15.5) % Plt Count (150-450) k/uL Neutrophils % % Lymphocytes % % Monocytes % % Eosinophils % % Basophils % % Neutrophils # (1.3-7.7) k/uL Lymphocytes # (1.0-4.8) k/uL Monocytes # (0-1.0) k/uL Eosinophils # (0-0.7) k/uL Basophils # (0-0.2) k/uL PT 10.0 (9.0-12.0) sec INR 0.9 (<1.2) APTT 22.1 (22.0-30.0) sec Sodium (137-145) mmol/L Potassium (3.5-5.1) mmol/L Chloride (98-107) mmol/L Carbon Dioxide (22-30) mmol/L Anion Gap mmol/L BUN (7-17) mg/dL Creatinine (0.52-1.04) mg/dL Est GFR (CKD-EPI)AfAm (>60 ml/min/1.73 sqM) Est GFR (CKD-EPI)NonAf (>60 ml/min/1.73 sqM) Glucose (74-99) mg/dL Calcium (8.4-10.2) mg/dL Magnesium (1.6-2.3) mg/dL Total Bilirubin (0.2-1.3) mg/dL AST (14-36) U/L ALT (9-52) U/L Alkaline Phosphatase (38-126) U/L NT-Pro-B Natriuret Pep pg/mL Total Protein (6.3-8.2) g/dL Albumin (3.5-5.0) g/dL Disposition Clinical Impression: COPD exacerbation, Sacral fracture Narrative: Difficulty ambulating Disposition: ADMITTED IP TO THIS HOSP Condition: Fair Referrals: Jaxon Osullivan DO [Primary Care Provider] - 1-2 days
[2018-11-03 08:27] LABS: Basophils % (A) 0 %; Eosinophils # (A) 0.1 k/uL (0-0.7); Eosinophils % (A) 1 %; HCT 45.5 % (34.0-46.0); HGB 14.6 gm/dL (11.4-16.0); Lymphocytes % (A) 9 %; MCH 29.3 pg (25.0-35.0); MCHC 32.1 g/dL (31.0-37.0); MCV 91.3 fL (80.0-100.0); Mean Platelet Volume 7.1; Monocytes # (A) 0.4 k/uL (0-1.0); Monocytes % (A) 4 %; Neutrophils # (A) 8.9 k/uL (1.3-7.7); Neutrophils % (A) 85 %; Platelet Count 199 k/uL (150-450); RBC 4.98 m/uL (3.80-5.40); RDW 15.2 % (11.5-15.5); WBC 10.5 k/uL (3.8-10.6)
[2018-11-03 08:35] LABS: INR 0.9 (<1.2); Partial Thromboplastin Time 22.1 sec (22.0-30.0)
[2018-11-03 08:38] LABS: ALT 31 U/L (9-52); AST 27 U/L (14-36); Albumin 3.4 g/dL (3.5-5.0); Alkaline Phosphatase 80 U/L (38-126); Anion Gap 6 mmol/L; Blood Urea Nitrogen 17 mg/dL (7-17); Calcium 8.6 mg/dL (8.4-10.2); Carbon Dioxide 32 mmol/L (22-30); Chloride 98 mmol/L (98-107); Glucose 65 mg/dL (74-99); Potassium 3.8 mmol/L (3.5-5.1); Sodium 136 mmol/L (137-145); Total Protein 5.5 g/dL (6.3-8.2)
--- NOTE | 2018-11-03 09:14 | XR ---
EXAMINATION TYPE: XR chest 1V DATE OF EXAM: 11/03/2018 HISTORY: difficulty breathing. REFERENCE: Previous study dated 06/06/2017. FINDINGS: Lung volumes are prominent. There are diffuse increased interstitial markings. Most of thes e are present previously. The heart is not enlarged. Pleural spaces are clear. IMPRESSION: COPD.
[2018-11-03] MEDS ORDERED: MORPHINE SULFATE 4 MG/ML SYRINGE IVP PRN (09:23)
[2018-11-03] MEDS ORDERED: ALBUTEROL NEBULIZED 2.5 MG/3 ML INHALATION SCH (10:00)
[2018-11-03] MEDS ORDERED: ALBUTEROL NEBULIZED 2.5 MG/3 ML INHALATION PRN (10:00)
[2018-11-03] MEDS ORDERED: BUDESONIDE 1 MG/2 ML NEBU INHALATION SCH (10:41)
[2018-11-03] MEDS: HYDROcodone/APAP 7.5-325MG 1 EACH TAB PO PRN ×3 (11:20→21:43)
[2018-11-03 11:29] LABS: Glucose,Whole Blood 83 mg/dL (75-99)
[2018-11-03] MEDS: FORMOTEROL FUMARATE 20 MCG/2 ML NEBU INHALATION SCH ×2 (11:45→21:18)
[2018-11-03] MEDS: IPRATROPIUM-ALBUTEROL 3 ML NEB INHALATION SCH ×3 (11:47→21:18)
[2018-11-03] MEDS ORDERED: methylPREDNISolone SOD SUCCI 125 MG/2 ML VIAL IV SCH (12:00)
[2018-11-03] MEDS ORDERED: IPRATROPIUM-ALBUTEROL 3 ML NEB INHALATION SCH (12:00)
[2018-11-03] MEDS: buPROPion SR 100 MG TABLET.ER PO SCH ×2 (13:02→20:59)
[2018-11-03] MEDS: HYDROXYCHLOROQUINE SULFATE 200 MG TAB PO SCH (13:02)
[2018-11-03] MEDS: PANTOPRAZOLE 40 MG TABLET PO SCH (13:02)
[2018-11-03] MEDS ORDERED: methylPREDNISolone SOD SUCCI 40 MG/ML 1 ML VIAL IV SCH (16:00)
[2018-11-03 16:57] LABS: Glucose,Whole Blood 70 mg/dL (75-99)
[2018-11-03] MEDS ORDERED: NON-FORMULARY DRUG (Fluticasone/Salmeterol [Advair 500-50 Diskus] 1 PUFF) INHALATION SCH (20:00)
[2018-11-03 20:54] LABS: Glucose,Whole Blood 93 mg/dL (75-99)
[2018-11-03] MEDS: GABAPENTIN 300 MG CAP PO SCH (20:59)
[2018-11-03] MEDS ORDERED: NAPROXEN 250 MG TAB PO STA (21:15)
[2018-11-03] MEDS: FAMOTIDINE 20 MG TAB PO SCH (21:43)
[2018-11-03] MEDS: ENOXAPARIN 40 MG/0.4 ML SYRINGE SQ SCH (21:44)
--- NOTE | 2018-11-03 22:21 | HP ---
HISTORY AND PHYSICAL DATE OF ADMISSION: November 03, 2018. DATE OF SERVICE: November 03, 2018. PRESENTING COMPLAINT: Hip pain. HISTORY OF PRESENTING COMPLAINT: This is a very pleasant 63-year-old patient of Dr. Osullivan. Chronic stable medical conditions include COPD, GERD, chronic hypoxia, Sjogren's. On Sunday, she was trying to move her dining table and she felt a crack in the hip and developed pain. Went down to see [facility], Dr. Thompson/Dr. Sweet. She was told there was no obvious fracture, or maybe she saw Dr. Thompson there and returned. Subsequently, the patient has been having increasing pain, finding difficulty even get about, getting in and out of a chair and decided to present here. There was some flare up of her COPD. No fever. No chills. No cough. Just more short of breath and wheezing. Hence patient presented here. Orthopedics, Dr. Thompson was consulted. REVIEW OF SYSTEMS: CONSTITUTIONAL: None. HEENT: None. RESPIRATORY: As above. CARDIOVASCULAR: None. GASTROINTESTINAL none. GENITOURINARY none. MUSCULOSKELETAL as above. DERMATOLOGICAL, HEMATOLOGIC, LYMPHATIC: none. PSYCHIATRY none. NEUROLOGICAL none. PAST MEDICAL HISTORY: COPD, GERD, left upper lower lung nodule being monitored, home oxygen 2 L. Sjogren syndrome. PAST SURGICAL HISTORY: Cholecystectomy, hysterectomy, bronchoscopy, biopsy, bilateral wrist carpal tunnel, TMJ surgery, left neck cyst removed. SOCIAL HISTORY: Lives with her . Has home oxygen. The patient smoked for close to 45 years about a pack a day, stopped in 2016. . FAMILY HISTORY: Lung cancer. HOME MEDICATIONS: 1. Wellbutrin SR 100 mg b.i.d. 2. Spiriva 1 capsule p.o. daily. 3. Protonix 40 mg p.o. daily. 4. Xopenex 1 puff daily. 5. Plaquenil 200 mg daily. 6. Neurontin 300 mg q.h.s. 7. Advair 5/50 one puff b.i.d. ALLERGIES: TO BANANA, BUDESONIDE, IV CONTRAST DYE, PENICILLIN-G, LEVAQUIN, VERAPAMIL. PHYSICAL EXAMINATION: VITAL SIGNS: Temperature 98.2, pulse 96, respiratory 18, blood pressure 137/68, pulse ox 91 percent on 2 L. GENERAL APPEARANCE: Average built, lying in bed, tired-appearing. EYES: Pupils equal. Conjunctivae normal. HEENT: External appearance of nose and ears normal. Oral cavity normal. NECK: JVD not raised. Mass not palpable. RESPIRATORY: Effort increased. LUNGS: Decreased breath sounds. Some wheezing. CARDIOVASCULAR: First and second sounds normal. No edema. ABDOMEN: Soft, nontender. Liver and spleen not palpable. LYMPHATICS: No lymph nodes palpable in the neck and axilla. PSYCHIATRY: Alert and oriented x3. Mood and affect anxious-appearing. NEUROLOGICAL: Pupils equal. Cranial nerves grossly intact. Power and sensation grossly intact. INVESTIGATIONS: White count 10.5, hemoglobin 14.6, potassium 3.8, BUN 17, creatinine 0.38. Accu-Cheks 65, 83, 70. Troponin 0.037. ProBNP 1090. EKG tracing personally reviewed by me. Nonspecific ST-segment changes. Chest x-ray film personally reviewed by me shows hyperinflation shows possibly chronically present interstitial markings. ASSESSMENT: 1. Right hip fracture, possible pubic rami unclear at this point. X-rays were done at Dr. Thompson's office. The patient is finding it difficult to get about. We will have Dr. Thompson team evaluate the same. 2. Chronic obstructive pulmonary disease in an ex-smoker. 3. Gastroesophageal reflux disease. 4. Chronic hypoxic respiratory failure on 2 L oxygen at home. 5. Sjogren's syndrome. PLAN: For pain control, patient will be put on NSAIDs, some steroids and heating pad. Did tell the patient to avoid use of narcotics as far as possible. We will have Dr. Thompson's team evaluate the patient. Put the patient on bronchodilators. Get PT/OT to evaluate the patient. The patient was explained that this pain can be present for quite some time, but we will await further input from Dr. Thompson. Copy to Dr. Osullivan. MMODL / IJN: [id number] /
[2018-11-04] MEDS: IPRATROPIUM-ALBUTEROL 3 ML NEB INHALATION SCH ×6 (00:47→21:00)
[2018-11-04] MEDS: HYDROcodone/APAP 7.5-325MG 1 EACH TAB PO PRN ×3 (06:08→21:25)
[2018-11-04 07:02] LABS: Glucose,Whole Blood 105 mg/dL (75-99)
[2018-11-04] MEDS: NAPROXEN 250 MG TAB PO SCH ×3 (08:31→21:25)
[2018-11-04] MEDS: ENOXAPARIN 40 MG/0.4 ML SYRINGE SQ SCH (08:31)
[2018-11-04] MEDS: buPROPion SR 100 MG TABLET.ER PO SCH ×2 (08:32→21:25)
[2018-11-04] MEDS: PANTOPRAZOLE 40 MG TABLET PO SCH (08:32)
[2018-11-04] MEDS: HYDROXYCHLOROQUINE SULFATE 200 MG TAB PO SCH (08:32)
[2018-11-04] MEDS: predniSONE 20 MG TAB PO SCH (08:32)
[2018-11-04] MEDS: FAMOTIDINE 20 MG TAB PO SCH (08:33)
[2018-11-04] MEDS: FORMOTEROL FUMARATE 20 MCG/2 ML NEBU INHALATION SCH ×2 (09:09→21:00)
[2018-11-04 11:51] LABS: Glucose,Whole Blood 124 mg/dL (75-99)
--- NOTE | 2018-11-04 12:18 | P.CNPUL ---
History of Present Illness Consult date: 11/04/18 Requesting physician: Spencer Boateng Reason for consult: dyspnea Chief complaint: Acute exacerbation of COPD, pelvic fracture History of present illness: This is a 63-year-old white female patient of Dr. Osullivan with history of advanced COPD, with baseline FEV1 of 1.04 L or 44% of predicted, and diffusion normality consistent with severe COPD, anxiety, Sjogren syndrome, former smoker who was transferred to [facility] on 11/03/2018 from [facility] where patient went for evaluation of right hip pain. Patient is currently in the process of moving, and she was helping lift a 7 foot table when she started having pain in her right hip. Apparently she saw [facility]. [facility], who felt that she may have strained or injured around the nerve. Patient was not improving, and she was becoming more short of breath related to pain. CT of abdomen and pelvis was completed at the [facility] And showed evidence of pelvic fracture. Patient was having difficulty bearing weight, with severe pain in her right hip. Patient wears o xygen around the clock for history of COPD, chest x-ray was completed showing prominent lung volumes, diffusing increased interstitial markings, no acute pulmonary process. Lab work showed a white blood cell count of 10.5, hemoglobin of 14.6, INR is 0.9, sodium is 136, potassium 3.8, chloride was 98, CO2 is 32, BUN was 17, creatinine is 0.38, troponin was 0.037, proBNP was 1090, EKG showed sinus rhythm with incomplete right bundle branch block, left ventricular hypertrophy, and ST depression and T-wave inversion in the inferior leads. He denies any complaints of chest pain, no cough or congestion, but lung sounds are positive for diminished breath sounds, and wheezing. No fever or chills. Hemodynamically she is stable. Patient follows with Dr. Dr. De La Cruz in the pulmonary clinic, and she has left upper lobe pulmonary nodule that is being followed on an outpatient basis, PET scan showed SUV of 2.2. Patient was started on breathing treatments, Pulmicort Perforomist, nebulized broncho dilators, oral prednisone Review of Systems All systems: negative Constitutional: Denies chills, Denies fever Eyes: denies blurred vision, denies pain Ears, nose, mouth and throat: Denies headache, Denies sore throat Cardiovascular: Denies chest pain, Denies shortness of breath Respiratory: Reports dyspnea, Reports home oxygen, Reports respiratory infections, Reports wheezing, Denies cough Gastrointestinal: Denies abdominal pain, Denies diarrhea, Denies nausea, Denies vomiting Genitourinary: Denies dysuria, Denies hematuria Musculoskeletal: Denies myalgias Musculoskeletal: right: hip pain Integumentary: Denies pruritus, Denies rash Neurological: Denies numbness, Denies weakness Psychiatric: Denies anxiety, Denies depression Endocrine: Denies fatigue, Denies weight change Past Medical History Past Medical History: COPD, GERD/Reflux, Pneumonia, Respiratory Disorder Additional Past Medical History / Comment(s): COPD with an FEV of 35% , DONTE lung nodules being monitored measuring 8x14mm , home O2 at 2L/NC ATC mostly lately, SJORGEN'S SYNDROME History of Any Multi-Drug Resistant Organisms: None Reported Past Surgical History: Cholecystectomy, Hysterectomy, Orthopedic Surgery Additional Past Surgical History / Comment(s): Bronchoscopies with bx, [place] wrist carpal tunnel, TMJ surgery, L neck cyst removed, colonoscopy. Past Anesthesia/Blood Transfusion Reactions: Previous Problems w/ Anesthesia Additional Past Anesthesia/Blood Transfusion Reaction / Comment(s): SLOW TO WAKE UP Past Psychological History: No Psychological Hx Reported Additional Psychological History / Comment(s): Pt resides with her spouse. She has home O2 and a nebulizer. She is independent. Smoking Status: Former smoker Past Alcohol Use History: None Reported Additional Past Alcohol Use History / Comment(s): QUIT SMOKING 2015, smoked since age 15, 1 PPD Past Drug Use History: None Reported - Past Family History Father Family Medical History: Cancer Additional Family Medical History / Comment(s): LUNG Mother Family Medical History: Cancer Additional Family Medical History / Comment(s): BREAST Medications and Allergies Home Medications Medication Instructions Recorded Confirmed Type Gabapentin [Neurontin] 300 mg PO HS 03/29/15 11/03/18 History Hydroxychloroquine Sulfate 200 mg PO DAILY 03/29/15 11/03/18 History [Plaquenil] Pantoprazole Sodium [Protonix] 40 mg PO DAILY 03/29/15 11/03/18 History Fluticasone/Salmeterol [Advair 1 puff INHALATION RT-BID 05/31/16 11/03/18 History 500-50 Diskus] Levalbuterol Tartrate [Xopenex Hfa 1 puff INHALATION RT-DAILY 05/31/16 11/03/18 History Inhaler] Tiotropium 18 Mcg/Puff [Spiriva] 1 cap INHALATION RT-DAILY 05/31/16 11/03/18 History buPROPion HCL [Wellbutrin SR] 100 mg PO BID 06/05/17 11/03/18 History Allergies Allergy/AdvReac Type Severity Reaction Status Date / Time banana Allergy Abdominal Verified 11/03/18 09:06 Pain budesonide [From Pulmicort] Allergy Dyspnea Verified 11/03/18 09:06 Iodinated Contrast- Oral and Allergy Anaphylaxis Verified 11/03/18 09:06 IV Dye [Iodinated Contrast Media - IV Dye] penicillin G Allergy Rash/Hives Verified 11/03/18 09:06 levofloxacin AdvReac joint pain Verified 11/03/18 09:06 verapamil AdvReac HEADACHE Verified 11/03/18 09:06 Physical Exam Vitals: Vital Signs Temp Pulse Pulse Pulse Resp BP Pulse Ox 11/04/18 09:29 94 11/04/18 09:21 91 11/04/18 09:09 93 90 L 11/04/18 07:09 97.9 F 89 16 128/66 94 L 11/04/18 00:57 92 11/04/18 00:48 92 11/04/18 00:33 98.5 F 94 14 128/62 95 11/03/18 21:35 98 11/03/18 21:29 98 11/03/18 21:19 96 11/03/18 19:53 98.4 F 97 16 118/63 94 L 11/03/18 17:14 100 11/03/18 17:05 98 11/03/18 15:11 98.0 F 99 123/67 94 L 11/03/18 13:30 96 18 Intake and Output 11/03/18 11/04/18 11/04/18 22:59 06:59 14:59 Intake Total 240 Balance 240 Intake: Oral 240 Other: # Voids 1 GENERAL EXAM: Alert, pleasant, 63-year-old white female, on 2 L of oxygen with a pulse ox of 90% comfortable in no apparent distress. HEAD: Normocephalic/atraumatic. EYES: Normal reaction of pupils, equal size. Conjunctiva pink, sclera white. NOSE: Clear with pink turbinates. THROAT: No erythema or exudates. NECK: No masses, no JVD, no thyroid enlargement, no adenopathy. CHEST: No chest wall deformity. Symmetrical expansion. LUNGS: Equal air entry with diffuse wheezes CVS: Regular rate and rhythm, normal S1 and S2, no gallops, no murmurs, no rubs ABDOMEN: Soft, nontender. No hepatosplenomegaly, normal bowel sounds, no guarding or rigidity. EXTREMITIES: No clubbing, no edema, no cyanosis, 2+ pulses and upper and lower extremities. MUSCULOSKELETAL: Muscle strength and tone normal. SPINE: No scoliosis or deformity SKIN: No rashes CENTRAL NERVOUS SYSTEM: Alert and oriented -3. No focal deficits, tone is normal in all 4 extremities. PSYCHIATRIC: Alert and oriented -3. Appropriate affect. Intact judgment and insight. Results - Laboratory Findings CBC and BMP: 11/03/18 08:05 11/03/18 08:05 PT/INR, D-dimer PT 10.0 sec (9.0-12.0) 11/03/18 08:05 INR 0.9 (<1.2) 11/03/18 08:05 Abnormal lab findings: Abnormal Labs 11/03/18 11/03/18 11/03/18 08:05 08:05 08:05 Neutrophils # 8.9 H Sodium 136 L Carbon Dioxide 32 H Creatinine 0.38 L Glucose 65 L POC Glucose (mg/dL) Troponin I 0.037 H* Total Protein 5.5 L Albumin 3.4 L 11/03/18 11/04/18 16:55 07:01 Neutrophils # Sodium Carbon Dioxide Creatinine Glucose POC Glucose (mg/dL) 70 L 105 H Troponin I Total Protein Albumin - Diagnostic Findings Chest x-ray: report reviewed Additional studies: CT of abdomen and pelvis report reviewed from [facility], EKG reviewed Assessment and Plan Plan: Assessment: #1. Difficulty ambulating, right hip pain, related to right pelvic fracture, after lifting a table #2. Dyspnea, related to acute COPD exacerbation #3. Mildly elevated proBNP, suggesting exacerbation of CHF #4. Elevated troponin, EKG showed nonspecific ST and T wave changes #5. Stage III COPD, with baseline FEV1 of 44% of predicted, chronic hypercapnic respiratory failure #6. Sjogren's syndrome #7. Left upper lobe pulmonary nodule measuring 7-8 mm x 14 mm, previously measured [id number] mm x 19 mm, PET scan revealed SUV of 2.2 #8. History of GERD/reflux #9. 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 She thinks the reason for increased dyspnea may be related to increased pain. Orthopedic consultation is pending. We'll continue to follow and make further recommendations I performed a history & physical examination of the patient and discussed their management with my nurse practitioner, Nayeli Araya. I reviewed the nurse practitioner's note and agree with the documented findings and plan of care. Lung sounds are positive for diffuse wheezes throughout the lung sewell. The findings and the impression was discussed with the patient. I attest to the documentation by the nurse practitioner. Time with Patient: Greater than 30
[2018-11-04 13:10] VITALS: BMI 19.5
[2018-11-04 17:03] LABS: Glucose,Whole Blood 150 mg/dL (75-99)
[2018-11-04] MEDS ORDERED: SYMBICORT 160-4.5 MCG INHALER INHALATION SCH (20:00)
[2018-11-04] MEDS: BUDESONIDE 1 MG/2 ML NEBU INHALATION SCH (21:00)
[2018-11-04] MEDS: ONDANSETRON 4 MG/2 ML VIAL IVP PRN (21:25)
[2018-11-04] MEDS: GABAPENTIN 300 MG CAP PO SCH (21:27)
--- NOTE | 2018-11-04 23:32 | P.CNOR ---
History of Present Illness - [facility] Consult date: 11/04/18 Requesting physician: Javad Lyon Consult reason: low back pain (Intractable right-sided low back pain), other (N ondisplaced right sacral fracture) History of present illness: Patient is a very pleasant 63-year-old female who is well known to our practice and who is seen and examined at the bedside for further evaluation for her severe intractable right-sided low back pain and right buttock pain. Patient was initially seen and examined in our office on 10/29/2018 for the same symptoms. The day before she had been lifting a table with her when she began to experience significant pain at her right low back radiating into the right buttock. She was started on a prednisone 20 mg taper. Her symptoms continue to worsen throughout the end of the week. Patient was called at the end of the day on 11/01/2018, to discuss her symptoms. Her symptoms continued to worsen over the weekend. She presented to [facility] on 11/02/2018, for further evaluation. CT imaging was taken at that time which showed evidence of a non-displaced right sacral fracture. Report is able to be seen but imaging has not been able to be viewed. Patient states she was found to have a nondisplaced fracture and was given some pain medication and discharged. Her symptoms have continued to worsen and she has been unable to ambulate and care for herself. She presented back to [facility] yesterday, 11/03/2018, for further evaluation. Patient was also found to have an exacerbation of COPD at that time. She was admitted for further treatment and evaluation. CT imaging is currently trying to be uploaded so her pelvis fracture is able to be visualized. Patient states she continues to have severe intractable right-sided low back pain radiating towards the right buttock. She also has numbness reading down the right lower extremity. She states her entire right lower extremity feels different than her left lower extremity. She is able to perform some active range of motion bilateral lower extremities but doing so exacerbates her back pain. She continues to deny any specific injury to her back. Her symptoms began after moving a table. At the bedside she is having significant pain with any movement of her spine. She has a medical history of COPD, Sjogren syndrome, and chronic hypoxia. Past Medical History Past Medical History: COPD, GERD/Reflux, Pneumonia, Respiratory Disorder Additional Past Medical History / Comment(s): COPD with an FEV of 35% , DONTE lung nodules being monitored measuring 8x14mm , home O2 at 2L/NC ATC mostly lately, SJORGEN'S SYNDROME History of Any Multi-Drug Resistant Organisms: None Reported Past Surgical History: Cholecystectomy, Hysterectomy, Orthopedic Surgery Additional Past Surgical History / Comment(s): Bronchoscopies with bx, [place] wrist carpal tunnel, TMJ surgery, L neck cyst removed, colonoscopy. Past Anesthesia/Blood Transfusion Reactions: Previous Problems w/ Anesthesia Additional Past Anesthesia/Blood Transfusion Reaction / Comm: SLOW TO WAKE UP Past Psychological History: No Psychological Hx Reported Additional Psychological History / Comment(s): Pt resides with her spouse. She has home O2 and a nebulizer. She is independent. Smoking Status: Former smoker Past Alcohol Use History: None Reported Additional Past Alcohol Use History / Comment(s): QUIT SMOKING 2015, smoked since age 15, 1 PPD Past Drug Use History: None Reported - Past Family History Father Family Medical History: Cancer Additional Family Medical History / Comment(s): LUNG Mother Family Medical History: Cancer Additional Family Medical History / Comment(s): BREAST Medications and Allergies Home Medications Medication Instructions Recorded Confirmed Type Gabapentin [Neurontin] 300 mg PO HS 03/29/15 11/03/18 History Hydroxychloroquine Sulfate 200 mg PO DAILY 03/29/15 11/03/18 History [Plaquenil] Pantoprazole Sodium [Protonix] 40 mg PO DAILY 03/29/15 11/03/18 History Fluticasone/Salmeterol [Advair 1 puff INHALATION RT-BID 05/31/16 11/03/18 History 500-50 Diskus] Levalbuterol Tartrate [Xopenex Hfa 1 puff INHALATION RT-DAILY 05/31/16 11/03/18 History Inhaler] Tiotropium 18 Mcg/Puff [Spiriva] 1 cap INHALATION RT-DAILY 05/31/16 11/03/18 History buPROPion HCL [Wellbutrin SR] 100 mg PO BID 06/05/17 11/03/18 History Allergies Allergy/AdvReac Type Severity Reaction Status Date / Time banana Allergy Abdominal Verified 11/03/18 09:06 Pain budesonide [From Pulmicort] Allergy Dyspnea Verified 11/03/18 09:06 Iodinated Contrast- Oral and Allergy Anaphylaxis Verified 11/03/18 09:06 IV Dye [Iodinated Contrast Media - IV Dye] penicillin G Allergy Rash/Hives Verified 11/03/18 09:06 levofloxacin AdvReac joint pain Verified 11/03/18 09:06 verapamil AdvReac HEADACHE Verified 11/03/18 09:06 Physical Examination Physical exam: Patient is awake, alert, and oriented 3 Vital signs stable Adequate chest excursion with deep inspiration and expiration; Patient currently on O2 nasal cannula Examination of lumbar spine reveals skin is intact with no abrasions, lacerations, or bruises; no erythema, purulence or signs of infection Severe pain with palpation the right lower lumbar spine and right buttock Dorsiflexion, plantarflexion, and extensor hallucis longus positive sustained bilaterally Movements of the lower extremities are slow No lower extremity hyperreflexia bilaterally No signs or symptoms of DVT; no calf pain No pain with internal and external rotation of the hips bilaterally Patient reports decreased sensation to palpation of the right lower extremity versus the left lower extremity Results Pertinent studies: CT of the pelvis taken at [facility] on 11/02/2018 which only the report is available: Nondisplaced right sacral fracture - Labs Labs: Abnormal Lab Results - Last 24 Hours (Table) 11/03/18 11/04/18 11/04/18 Range/Units 16:55 07:01 11:48 POC Glucose (mg/dL) 70 L 105 H 124 H (75-99) mg/dL H & H 11/03/18 Range/Units 08:05 Hgb 14.6 (11.4-16.0) gm/dL Hct 45.5 (34.0-46.0) % Coagulation 11/03/18 Range/Units 08:05 INR 0.9 (<1.2) Result Diagrams: 11/03/18 08:05 11/03/18 08:05 Assessment and Plan Assessment: Assessment: Intractable right-sided low back pain Right buttock pain Right lower extremity radiculopathy Inability to ambulate due to pain Report of nondisplaced right sacral fracture COPD exacerbation History of Sjogren syndrome History of chronic hypoxia (1) Intractable low back pain Current Visit: Yes Status: Acute Code(s): M54.5 - LOW BACK PAIN SNOMED Code(s): 16090595466212322 (2) Unable to ambulate Current Visit: Yes Status: Acute Code(s): R26.2 - DIFFICULTY IN WALKING, NOT ELSEWHERE CLASSIFIED SNOMED Code(s): 172316373 (3) Radicular pain of right lower extremity Current Visit: Yes Status: Acute Code(s): M54.10 - RADICULOPATHY, SITE UNSPECIFIED SNOMED Code(s): 15940860 (4) COPD exacerbation Current Visit: Yes Status: Acute Code(s): J44.1 - CHRONIC OBSTRUCTIVE PULMONARY DISEASE W (ACUTE) EXACERBATION SNOMED Code(s): 849078204 (5) Sacral fracture Current Visit: Yes Status: Acute Code(s): S32.10XA - UNSP FRACTURE OF SACRUM, INIT ENCNTR FOR CLOSED FRACTURE SNOMED Code(s): 132604635 Plan: Plan: 1. Patient has been discussed in significant detail with Dr. Yves Thompson, who has also discussed the patient with Dr. Boateng and Dr. De La Cruz. Report of imaging has been reviewed from [facility]. We are currently trying to obtain imaging to be visualized. Imaging taken at [facility] from 10/29/2018 has also been reviewed today without evidence of acute compression fracture deformity of the lumbar spine and no obvious sacral fracture visualized. Patient is having significant pain in the right lower lumbar spine with pain into the right buttock. She feels her symptoms have been worsening and she's been unable to ambulate on the right lower extremity due to her symptoms. At this time it's hard to determine the exact cause of her symptoms. She has consistently denies injury to her spine or pelvis. She has significant pain with any sort of mobilization of her spine and has significant difficulty in ambulation. She was ambulating with a significant limp during her presentation to our office in outpatient setting. Report from [facility] states the patient does have a nondisplaced right sacral fracture. This fracture does not require acute surgical intervention. We would recommend a donut seat cushion for her sacral fracture. At this time we are currently waiting to see if we are able to have this imaging uploaded so we may review it. We will currently planned to hold off on obtaining further imaging until we are able to see her current imaging and developed a better plan of care. Medicine may plan to discharge the patient at which time we would have her follow up in outpatient setting and could plan to obtain further imaging in the outpatient setting. If her symptoms and pain are able to be controlled, we would be okay with the patient being discharged in follow-up in the outpatient setting. If the patient's symptoms improve and she is able to be discharged, we will plan to have her follow-up in approximately 1 week for further evaluation. Depending how she is progressing to that time, we may plan to obtain an MRI of the lumbar spine and/or sacrum for further evaluation. If the patient is unable to improve or is unable to be discharged, we may plan for further imaging while the patient is here in the hospital. We are not planning for surgical inter vention at this time. Dr. De La Cruz has stated patient would not be cleared for surgical intervention from a pulmonary standpoint. We will plan to exhaust conservative treatment. Patient may continue with pain control medications as prescribed by medicine. Following discharge, patient will follow up with Rene Tapia PA-C or Dr. Yves Thompson at [facility] approximately 1 week for further evaluation. 2. Patient will continue be seen by medicine for her significant medical diagnoses including COPD exacerbation Time with Patient: Greater than 30 (Including obtaining history, physical examination, reviewing of imaging, and dictation.)
[2018-11-05] MEDS: IPRATROPIUM-ALBUTEROL 3 ML NEB INHALATION SCH ×6 (00:41→21:21)
[2018-11-05] MEDS: HYDROcodone/APAP 7.5-325MG 1 EACH TAB PO PRN ×3 (05:37→20:04)
--- NOTE | 2018-11-05 06:29 | PN ---
PROGRESS NOTE DATE OF SERVICE: 11/04/2018 PRESENTING COMPLAINT: Hip pain. INTERVAL HISTORY: This patient presented with hip pain, saw Dr. Thompson. No fracture was determined at the office. The patient presented with pain, now looking at placement. Pain is present primarily with movement. The patient has advanced COPD. REVIEW OF SYSTEMS: Done for constitutional, cardiovascular, GI, pulmonary; relevant findings as above. CURRENT MEDICATIONS: Current medications are reviewed that include naproxen, oral prednisone, bronchodilators. PHYSICAL EXAMINATION: On examination, temperature 98.6, pulse 98, respiration 16, blood pressure 125/65, pulse ox 95% on 2 L. GENERAL APPEARANCE: Lying in bed, tired appearing. EYES: Pupils equal. Conjunctivae normal. NECK: JVD not raised. Mass not palpable. RESPIRATORY: Effort increased. LUNGS: Decreased breath sounds, some wheezing. CARDIOVASCULAR: First and second sounds normal. No edema. ABDOMEN: Soft, nontender. Liver and spleen not palpable. PSYCHIATRY: Alert and oriented x3. Mood affect anxious. INVESTIGATIONS: Accu-Cheks are noted. ASSESSMENT: 1. Fracture versus blunt injury. Await further input from Dr. Thompson's office. 2. Chronic obstructive pulmonary disease in an ex-smoker. 3. Gastroesophageal reflux disease. 4. Chronic hypoxic respiratory failure on 2 L oxygen at home. 5. Sjogren syndrome. 6. Medical debility. 7. Hypoglycemia from decreased oral intake. PLAN: Continue current medication and treatment plan. 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 Will follow. MMODL / IJN: [id number] /
[2018-11-05] MEDS: BUDESONIDE 1 MG/2 ML NEBU INHALATION SCH (08:14)
[2018-11-05] MEDS: FORMOTEROL FUMARATE 20 MCG/2 ML NEBU INHALATION SCH ×2 (08:14→21:24)
[2018-11-05] MEDS: buPROPion SR 100 MG TABLET.ER PO SCH ×2 (09:17→20:46)
[2018-11-05] MEDS: PANTOPRAZOLE 40 MG TABLET PO SCH (09:17)
[2018-11-05] MEDS: HYDROXYCHLOROQUINE SULFATE 200 MG TAB PO SCH (09:17)
[2018-11-05] MEDS: NAPROXEN 250 MG TAB PO SCH ×3 (09:18→20:46)
[2018-11-05] MEDS: predniSONE 20 MG TAB PO SCH (09:18)
[2018-11-05] MEDS: ENOXAPARIN 40 MG/0.4 ML SYRINGE SQ SCH (09:19)
--- NOTE | 2018-11-05 10:53 | P.PN ---
Subjective Progress Note Date: 11/05/18 Principal diagnosis: This is a 63-year-old white female patient of Dr. Osullivan with history of advanced COPD, with baseline FEV1 of 1.04 L or 44% of predicted, and diffusion normality consistent with severe COPD, anxiety, Sjogren syndrome, former smoker who was transferred to [facility] on 11/03/2018 from [facility] where patient went for evaluation of right hip pain. Patient is currently in the process of moving, and she was helping lift a 7 foot table when she started having pain in her right hip. Apparently she saw Dr. Thompson [facility], who felt that she may have strained or injured around the nerve. Patient was not improving, and she was becoming more short of breath related to pain. CT of abdomen and pelvis was completed at the [facility] And showed evidence of pelvic fracture. Patient was having difficulty bearing weight, with severe pain in her right hip. Patient wears oxygen around the clock for history of COPD, chest x-ray was completed showing prominent lung volumes, diffusing increased interstitial markings, no acute pulmonary process. Lab work showed a white blood cell count of 10.5, hemoglobin of 14.6, INR is 0.9, sodium is 136, potassium 3.8, chloride was 98, CO2 is 32, BUN was 17, creatinine is 0.38, troponin was 0.037, proBNP was 1090, EKG showed sinus rhythm with incomplete right bundle branch block, left ventricular hypertrophy, and ST depression and T-wave inversion in the inferior leads. He denies any complaints of chest pain, no cough or congestion, but lung sounds are positive for diminished breath sounds, and wheezing. No fever or chills. Hemodynamically she is stable. Patient follows with Dr. Dr. De La Cruz in the pulmonary clinic, and she has left upper lobe pulmonary nodule that is being followed on an outpatient basis, PET scan showed SUV of 2.2. Patient was started on breathing treatments, Pulmicort Perforomist, nebulized bronchodilators, oral prednisone Patient seen today 11/05/2017 in follow-up on the regular medical floor. She is currently awake and alert in no acute distress. She is up in a chair at the bedside. She is still having some ongoing issues with pelvic discomfort and right hip pain. She been [facility] and [facility] The plan is for conservative treatment for now. Presently, she has no pulmonary c omplaints. No worsening shortness of breath, cough or congestion. She is maintaining O2 saturations in the 90s on 2 L/m per nasal cannula. She's afebrile. Hemodynamically stable. She remains on bronchodilators and oral prednisone. Objective - Vital Signs Vital signs: Vital Signs Temp 98.5 F 11/05/18 07:00 Pulse 88 11/05/18 08:30 Resp 12 11/05/18 07:00 BP 116/57 11/05/18 07:00 Pulse Ox 94 L 11/05/18 08:19 Intake & Output 11/04/18 11/05/18 11/05/18 18:59 06:59 18:59 Intake Total 640 Output Total 300 Balance 640 -300 Weight 49.895 kg Intake: Oral 640 Output: Urine 300 - Exam GENERAL EXAM: Frail, cachectic. Alert, pleasant, 63-year-old white female, on 2 L of oxygen with a pulse ox of 90% comfortable in no apparent distress. HEAD: Normocephalic/atraumatic. EYES: Normal reaction of pupils, equal size. Conjunctiva pink, sclera white. NOSE: Clear with pink turbinates. THROAT: No erythema or exudates. NECK: No masses, no JVD, no thyroid enlargement, no adenopathy. CHEST: No chest wall deformity. Symmetrical expansion. LUNGS: Equal air entry with diffuse wheezes CVS: Regular rate and rhythm, normal S1 and S2, no gallops, no murmurs, no rubs ABDOMEN: Soft, nontender. No hepatosplenomegaly, normal bowel sounds, no guarding or rigidity. EXTREMITIES: No clubbing, no edema, no cyanosis, 2+ pulses and upper and lower extremities. MUSCULOSKELETAL: Muscle strength and tone normal. SPINE: No scoliosis or deformity SKIN: No rashes CENTRAL NERVOUS SYSTEM: No focal deficits, tone is normal in all 4 extremities. PSYCHIATRIC: Alert and oriented -3. Appropriate affect. Intact judgment and insight. - Labs CBC & Chem 7: 11/03/18 08:05 11/03/18 08:05 Labs: Abnormal Lab Results - Last 24 Hours (Table) 11/04/18 11/04/18 Range/Units 11:48 17:02 POC Glucose (mg/dL) 124 H 150 H (75-99) mg/dL Assessment and Plan Assessment: Assessment: #1. Difficulty ambulating, right hip pain, related to right pelvic fracture, after lifting a table #2. Dyspnea, related to acute COPD exacerbation #3. Mildly elevated proBNP, suggesting exacerbation of CHF #4. Elevated troponin, EKG showed nonspecific ST and T wave changes #5. Stage III COPD, with baseline FEV1 of 44% of predicted, chronic hypercapnic respiratory failure #6. Sjogren's syndrome #7. Left upper lobe pulmonary nodule measuring 7-8 mm x 14 mm, previously measured 12skr49 mm x 19 mm, PET scan revealed SUV of 2.2 #8. History of GERD/reflux #9. 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 De La Cruz. She is currently stable from the pulmonary standpoint. [facility] are planning on conservative therapy for the right pelvic fracture and right hip pain. Plan is for discharge to an extended care facility for further inpatient rehabilitation. I, the cosigning physician, performed a history & physical examination of the patient. Lungs sounds with faint bilateral end expiratory wheeze, diminished. Maintaining good O2 saturations in the 90s on 2 L/m per nasal cannula. I discussed the assessment and plan of care with my nurse practitioner, Vanda Cifuentes. I attest to the above note as dictated by her.
--- NOTE | 2018-11-05 12:53 | P.PN ---
Progress Note - Text Progress Note Date: 11/05/18 Patient is a very pleasant 63-year-old female who is well known to our practice and who is seen and examined at the bedside for follow-up evaluation for her severe intractable right-sided low back pain and right buttock pain. She has not had any significant improvement or change in her symptoms since being seen and examined yesterday. Patient was initially seen and examined in our office on 10/29/2018 for the same symptoms. The day before she had been lifting a table with her when she began to experience significant pain at her right low back radiating into the right buttock. She was started on a prednisone 20 mg taper. Her symptoms continue to worsen throughout the end of t he week. Patient was called at the end of the day on 11/01/2018, to discuss her symptoms. Her symptoms continued to worsen over the weekend. She presented to [facility] on 11/02/2018, for further evaluation. CT imaging was taken at that time which showed evidence of a non- displaced right sacral fracture. Report is able to be seen but imaging has not been able to be viewed. Patient states she was found to have a nondisplaced fracture and was given some pain medication and discharged. Her symptoms have continued to worsen and she has been unable to ambulate and care for herself. She presented back to [facility] 11/03/2018, for further evaluation. Patient was also found to have an exacerbation of COPD at that time. She was admitted for further treatment and evaluation. We have had continued to have difficulty with visualizing CT imaging of her pelvis to visualize sacral fracture. Patient states she continues to have severe intractable right-sided low back pain radiating towards the right buttock. She also has numbness reading down the right lower extremity. She states her entire right lower extremity feels different than her left lower extremity. She is able to perform some active range of motion bilateral lower extremities but doing so exacerbates her back pain. She continues to deny any specific injury to her back. Her symptoms began after moving a table. At the bedside she is having significant pain with any movement of her spine. She has a medical history of COPD, Sjogren syndrome, and chronic hypoxia. She is playing for discharge tomorrow to a rehabilitation facility. She was able to transfer to a bedside chair today with the assistance of therapy with significant pain. Physical exam: Patient is awake, alert, and oriented 3 Vital signs stable Adequate chest excursion with deep inspiration and expiration; Patient currently on O2 nasal cannula Examination of lumbar spine reveals skin is intact with no abrasions, lacerations, or bruises; no erythema, purulence or signs of infection Severe pain with palpation the right lower lumbar spine and right buttock Dorsiflexion, plantarflexion, and extensor hallucis longus positive sustained bilaterally Movements of the lower extremities are slow No lower extremity hyperreflexia bilaterally No signs or symptoms of DVT; no calf pain No pain with internal and external rotation of the hips bilaterally Patient reports decreased sensation to palpation of the right lower extremity versus the left lower extremity Pertinent studies: CT of the pelvis taken at [facility] on 11/02/2018 which only the report is available: Nondisplaced right sacral fracture Assessment: Intractable right-sided low back pain Right buttock pain Right lower extremity radiculopathy Inability to ambulate due to pain Report of nondisplaced right sacral fracture COPD exacerbation History of Sjogren syndrome History of chronic hypoxia Plan: 1. Patient is again discussed in significant detail with Dr. Yves Thompson, who has also previously discussed the patient with Dr. Boateng and Dr. De La Cruz. Report of imaging has been reviewed from [facility]. We have been unable to visualize imaging from [facility]. Imaging taken at [facility] from 10/29/2018 has also been reviewed today without evidence of acute compression fracture deformity of the lumbar spine and no obvious sacral fracture visualized. Patient is having significant pain in the right lower lumbar spine with pain into the right buttock. She feels her symptoms have been worsening and she's been unable to ambulate on the right lower extremity due to her symptoms. At this time it's hard to determine the exact cause of her symptoms. She has consistently denies injury to her spine or pelvis. She has significant pain with any sort of mobilization of her spine and has significant difficulty in ambulation. She was ambulating with a significant limp during her presentation to our office in outpatient setting. Report from [facility] states the patient does have a nondisplaced right sacral fracture. This fracture does not require acute surgical intervention. Her symptoms have failed to improve over the past 2 days during her admission to the Hospital. She is planning for discharge tomorrow to a rehabilitation facility. At this time we will plan to obtain an MRI of the lumbar spine and sacrum for further evaluation. We will follow up upon the completion of this MRI imaging to discuss the results and discuss possible treatment options. We are not planning for surgical intervention at this time. Dr. De La Cruz has stated patient would not be cleared for surgical intervention from a pulmonary standpoint. We will plan to exhaust conservative treatment. Patient may continue with pain co ntrol medications as prescribed by medicine. Following discharge, patient will follow up with Rene Tapia PA-C or Dr. Yves Thompson at [facility] approximately 1 week for further evaluation. 2. Patient will continue be seen by medicine for her significant medical diagnoses including COPD exacerbation
[2018-11-05] MEDS: GABAPENTIN 300 MG CAP PO SCH (20:46)
--- NOTE | 2018-11-05 21:53 | MR ---
EXAMINATION TYPE: MR lspine/sacrum wo con DATE OF EXAM: 11/05/2018 COMPARISON: Outside CT lumbar spine January 01, 2019. HISTORY: Inability ambulate, severe right LBP, Sacral Fx TECHNIQUE: Multiplanar, multisequence imaging of the lumbar spine and sacrum are performed without IV contrast. FINDINGS: L-SPINE: Sagittal images of the lumbar spine show vertebral body heights and alignment to remain satisfactory. Prominent Schmorl node superior T12 endplate is noted. The intervertebral discs demonstrate disc arsenio iccation L4-L5 level otherwise disc space heights are maintained. The conus medullaris is normal in p osition and signal ending mid L1 level. There are few small Tarlov cyst posterior S1-S2 level sagitta l image 9 and 10. The bone marrow signal intensity is within normal limits. Axial images show the T12-L1, L1-L2, and L2-L3 levels also appear within normal limits. Axial images at the L3-L4 level redemonstrates mild facet degenerative changes and ligamenta flavum h ypertrophy bilaterally. Spinal canal is preserved. Bilateral neural foramina are patent. Axial images at the L4-L5 level shows broad disc bulge with central disc protrusion component and mil d facet degenerative changes bilaterally. There is mild effacement of the anterior thecal sac On axial image 8 and mild left greater than right bilateral anterior inferior neural foraminal narrow ing. Axial images at the L5-S1 level show mild to moderate facet degenerative changes bilaterally with tin y central disc protrusion. Spinal canal is preserved. Bilateral neural foramina are patent. No suspicious incidental retroperitoneal findings are seen. IMPRESSION: Multilevel fairly mild degenerative changes mid to lower lumbar spine as detailed above. SACRUM: Sacrum shows diffuse T2 hyperintense signal in the right and left aspects with suggestion of irregula r low T1 signal bilaterally seen best on coronal series 701 felt to reflect nondisplaced bilateral sa cral fractures with associated bone marrow edema diffusely involving the sacrum. On axial images ther e is no significant displacement. Sacroiliac joints are maintained bilaterally. There is a small soft tissue contusion injury left gluteal region coronal image 15 noted. Uterus is surgically absent or m arkedly atrophic. IMPRESSION: There are acute nondisplaced bilateral sacral fractures seen on MRI with diffuse osseous contusion and/or bone marrow edema involving nearly entire sacrum.
[2018-11-06] MEDS: IPRATROPIUM-ALBUTEROL 3 ML NEB INHALATION SCH ×6 (00:07→20:46)
--- NOTE | 2018-11-06 00:17 | PN ---
PROGRESS NOTE DATE OF SERVICE: 11/05/2018 PRESENTING COMPLAINT: Back pain. INTERVAL HISTORY: This patient presented with back, hip pain. The patient did undergo an MRI today that shows bilateral sacral fractures, some surrounding edema. The patient's breathing otherwise is stable. Did tolerate some diet. REVIEW OF SYSTEMS: Done for constitutional, cardiovascular, GI, pulmonary, musculoskeletal and relevant findings as above. CURRENT MEDICATIONS: Reviewed. PHYSICAL EXAMINATION: VITAL SIGNS: Temperature 98.1, pulse 105, respirations 12, blood pressure 130/75, pulse ox 92 percent on room air. GENERAL APPEARANCE: Lying in bed, anxious-appearing. EYES: Pupils equal. Conjunctivae normal. NECK: JVD not raised. Mass not palpable. RESPIRATORY effort normal. LUNGS: Decreased breath sounds. CARDIOVASCULAR: First and second sounds normal. No edema. ABDOMEN: Soft, nontender. Liver and spleen not palpable. PSYCHIATRY: Alert and oriented x3. Mood and affect normal. INVESTIGATIONS: Accu-Cheks are noted. MRI results are noted. ASSESSMENT: 1. Acute bilateral sacral fractures edema secondary to blunt injury. 2. Chronic obstructive pulmonary disease in an ex-smoker. 3. Gastroesophageal reflux disease. 4. Chronic hypoxic respiratory failure on 2 L oxygen at home. 5. Sjogren syndrome. 6. Medical debility. 7. Hypoglycemia from decreased oral intake. PLAN: Continue current medication and treatment plan. 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 Prognosis is guarded. MMODL / IJN: [id number] /
[2018-11-06] MEDS: HYDROcodone/APAP 7.5-325MG 1 EACH TAB PO PRN ×3 (05:47→17:30)
[2018-11-06] MEDS: PANTOPRAZOLE 40 MG TABLET PO SCH (07:33)
[2018-11-06] MEDS: buPROPion SR 100 MG TABLET.ER PO SCH ×2 (07:33→20:42)
[2018-11-06] MEDS: NAPROXEN 250 MG TAB PO SCH ×4 (07:33→20:44)
[2018-11-06] MEDS: HYDROXYCHLOROQUINE SULFATE 200 MG TAB PO SCH (07:34)
[2018-11-06] MEDS: predniSONE 20 MG TAB PO SCH (07:34)
[2018-11-06] MEDS: ENOXAPARIN 40 MG/0.4 ML SYRINGE SQ SCH (07:34)
[2018-11-06] MEDS ORDERED: ACETAMINOPHEN TAB 325 MG TAB PO PRN (08:27)
--- NOTE | 2018-11-06 08:50 | P.PN ---
Progress Note - Text Progress Note Date: 11/06/18 Patient is a very pleasant 63-year-old female who is well known to our practice and who is seen and examined at the bedside for follow-up evaluation for her severe intractable right-sided low back pain and right buttock pain. She has not had any significant improvement or change in her symptoms since being seen and examined yesterday. She has an MRI of the lumbar spine sacrum performed yesterday. Patient was initially seen and examined in our office on 10/29/2018 for the same symptoms. The day before she had been lifting a table with her when she began to experience significant pain at her right low back radiating into the right buttock. She was started on a prednisone 20 mg taper. Her symptoms continue to worsen throughout the end of the week. Patient was called at the end of the day on 11/01/2018, to discuss her symptoms. Her symptoms continued to worsen over the weekend. She presented to [facility] on 11/02/2018, for further evaluation. CT imaging was taken at that time which showed evidence of a non-displaced right sacral fr acture. Report is able to be seen but imaging has not been able to be viewed. Patient states she was found to have a nondisplaced fracture and was given some pain medication and discharged. Her symptoms have continued to worsen and she has been unable to ambulate and care for herself. She presented back to [facility] 11/03/2018, for further evaluation. Patient was als o found to have an exacerbation of COPD at that time. She was admitted for further treatment and evaluation. Patient states she continues to have severe intractable right-sided low back pain radiating towards the right buttock. She also has numbness reading down the right lower extremity that has not changed. She states her entire right lower extremity feels different than her left lower extremity. She is able to perform some active range of motion bilateral lower extremities but doing so exacerbates her back pain. She has the most relief of her symptoms while laying on her left side. She continues to deny any specific injury to her back. Her symptoms began after moving a table. At the bedside she is having significant pain with any movement of her spine. She has a medical history of COPD, Sjogren syndrome, and chronic hypoxia. She is playing for discharge tomorrow to a rehabilitation facility. She was able to transfer to a bedside chair today with the assistance of therapy with significant pain. He is planning for discharge today to a rehabilitation facility. Nursing states her feels she has had some improvement during her admission but the patient states she feels the same. Physical exam: Patient is awake, alert, and oriented 3 Vital signs stable Adequate chest excursion with deep inspiration and expiration; Patient currently on O2 nasal cannula Examination of lumbar spine reveals skin is intact with no abrasions, lacerations, or bruises; no erythema, purulence or signs of infection Severe pain with palpation the right lower lumbar spine and right buttock Dorsiflexion, plantarflexion, and extensor hallucis longus positive sustained bilaterally Movements of the lower extremities are slow No lower extremity hyperreflexia bilaterally No signs or symptoms of DVT; no calf pain No pain with internal and external rotation of the hips bilaterally Patient reports decreased sensation to palpation of the right lower extremity versus the left lower extremity Pertinent studies: MRI of the lumbar spine and sacrum taken on 11/05/2018: Acute nondisplaced bilateral sacral fractures with diffuse osseous contusion and/or bone marrow edema involving nearly the entire sacrum Mild degenerative changes of the lumbar spine with facet arthropathy; L4-5 mild degenerative disc disease with arsenio iccation and broad-based disc bulge with right neural foraminal narrowing; no evidence of significant spinal canal stenosis; CT of the pelvis taken at [facility] on 11/02/2018 which only the report is available: Nondisplaced right sacral fracture Assessment: Acute nondisplaced bilateral sacral fractures Intractable right-sided low back pain Right buttock pain Right lower extremity radiculopathy Inability to ambulate due to pain L4-5 mild degenerative disc disease and disc bulging Mild lumbar facet arthropathy COPD exacerbation History of Sjogren syndrome History of chronic hypoxia Plan: 1. Patient is again discussed in significant detail with Dr. Yves Thompson, who has also previously discussed the patient with Dr. Boateng and Dr. De La Cruz. Report of imaging has been reviewed from [facility]. We have been unable to visualize imaging from [facility]. Imaging taken at [facility] from 10/29/2018 has also been reviewed today without evidence of acute compression fracture deformity of the lumbar spine and no obvious sacral fracture visualized. Patient is having significant pain in the right lower lumbar spine with pain into the right buttock. She feels her symptoms have been worsening and she's been unable to ambulate on the right lower extremity due to her symptoms. She has consistently denies injury to her spine or pelvis. She has significant pain with any sort of mobilization of her spine and has significant difficulty in ambulation. She was ambulating with a significant limp during her presentation to our office in outpatient setting. Report from [facility] states the patient does have a nondisplaced right sacral fracture. This fracture does not require acute surgical intervention. Her symptoms have failed to improve over the past 3 days during her admission to the Hospital. She is planning for discharge tomorrow to a rehabilitation facility. Since being seen and examined yesterday an MRI of the lumbar spine and sacrum. There are not insignificant findings at her lumbar spine. She does have evidence of acute nondisplaced bilateral sacral fracture. At this time she may weight-bear as tolerated on bilateral lower extremities. She will need rehabilitation to help with transfers and mobility. She should avoid excessive activities but may participate in activities at tolerance. We are not planning for surgical intervention at this time. Dr. De La Cruz has stated patient would not be cleared for surgical intervention from a pulmonary standpoint. We will plan to exhaust conservative treatment. Patient may continue with pain control medications as prescribed by medicine. Patient is clear for discharge from orthopedic spine standpoint. Following discharge, patient will follow up with Rene Tapia PA-C or Dr. Yves Thompson at [facility] approximately 1 week for further evaluation. 2. Patient will continue be seen by medicine for her significant medical diagnoses including COPD exacerbation
[2018-11-06] MEDS: FORMOTEROL FUMARATE 20 MCG/2 ML NEBU INHALATION SCH ×2 (08:54→20:46)
--- NOTE | 2018-11-06 12:00 | PN ---
PROGRESS NOTE DATE OF SERVICE: November 06, 2018 This is a 63-year-old patient who I see in the office for her severe COPD. She has an FEV1 which is 44% of predicted. The patient came into the hospital because of back and sacral pain. She apparently was lifting a table. She apparently has a fracture of the sacrum. The patient apparently is doing reasonably well from the pulmonary standpoint. We put her back on her usual pulmonary medications. She denies any shortness of breath more than usual, cough, wheezing, chest tightness, or phlegm production. She does have baseline shortness of breath on exertion. As I mentioned earlier, her FEV1 is only 44% predicted which causes her to have stage III COPD/severe COPD. PHYSICAL EXAMINATION: VITAL SIGNS: Currently, her vital signs are reviewed. Temperature 97.8 heart rate 90, respiratory rate 16, blood pressure 116/68, mean 84, saturations are 97% on 2 L. GENERAL: She appears in no acute distress. HEENT: Examination is grossly unremarkable. Mucous membranes are moist. Nasal O2 noted. NECK: Supple. Full range of motion. No adenopathy or thyromegaly. Neck veins are flat. CARDIOVASCULAR: Examination reveals regular rhythm and rate. Heart rate 88 beats per minute. S1, S2 normal. Heart sounds are distant. LUNGS: Reveal severely diminished breath sounds. A few scattered mild rhonchi and wheezes are noted. No crackles. Slight prolongation on forced maneuver. Adventitious lung sounds are more prominent on forced maneuver. ABDOMEN: Soft. Bowel sounds are heard. EXTREMITIES: Are intact. No cyanosis, clubbing, or edema. SKIN: Without rash. NEUROLOGIC: Examination is brief but nonfocal. LABS: Labs are reviewed. Nothing new from today. X-RAY: No new x-rays to report. She did have a lumbar spine MRI yesterday. It showed acute nondisplaced bilateral sacral fracture seen on the MRI with diffuse osseous contusion and/or bone marrow edema. ASSESSMENT: 1. Sacral fracture secondary to lifting a table. 2. Shortness of breath, chronic, secondary to chronic obstructive pulmonary disease, which is relatively stable and at baseline. Her chronic obstructive pulmonary disease is quite severe with an FEV1 that is 44% of predicted, making her a stage III/severe chronic obstructive pulmonary disease patient. 3. Mildly elevated proBNP, may relate to a mild exacerbation of congestive heart failure. 4. Mild elevation of troponins, with nonspecific ST-T wave changes. 5. Previous diagnosis of left upper lobe pulmonary nodule, which on most recent examinations have dissipated. 6. History of gastroesophageal reflux disease/reflux. 7. Anorexia/cachexia syndrome. PLAN: From our perspective, the patient could be discharged home. I believe Dr. Thompson is going to be very conservative with the management of sacral fractures. Anyway, the patient will follow up with me back in the office. Her COPD is pretty much at baseline. No additional recommendations are made. Prognosis is guarded. MMODL / IJN: [id number] /
--- NOTE | 2018-11-06 12:51 | DS ---
DISCHARGE SUMMARY DATE OF ADMISSION: 11/03/2018 DATE OF DISCHARGE: 11/06/2018 FINAL DIAGNOSES: 1. Acute bilateral sacral fractures secondary to a fall/blunt injury. 2. Chronic obstructive pulmonary disease in an ex-smoker. 3. Gastroesophageal reflux disease. 4. Chronic hypoxic respiratory failure on 2 L oxygen at home. 5. Sjogren syndrome. 6. Medical debility. 7. Hypoglycemia from decreased oral intake. CONSULTATIONS: Dr. De La Cruz from Pulmonary; Dr. Thompson from Orthopedics. HOSPITAL COURSE: This is a very pleasant 63-year-old patient of Dr. Osullivan who was trying to move a dining table, felt a crack in the hip and developed pain. She did go and see [facility], Dr. Thompson. Subsequently she continued to have increasing pain, difficult to get about, re-admitted for the same. MRI did confirm bilateral sacral fractures. It was determined patient was not a surgical candidate, will be managed conservatively. The patient's oral intake is not good. Did speak to her extensively about increasing oral intake and spacing her oral intake out. On examination, temperature 97.8, pulse 87, respirations 16, blood pressure 116/68, pulse ox 93% on room air. LUNGS: Decreased breath sounds. CARDIOVASCULAR: First and second sounds normal. PSYCH: AO x3. INVESTIGATION: Potassium 3.8, BUN 17, creatinine 0.38. DISCHARGE MEDICATIONS: 1. Plaquenil 200 mg p.o. daily. 2. Protonix 40 mg p.o. daily. 3. Advair 500/50 one puff b.i.d. 4. Wellbutrin SR 100 mg b.i.d. 5. Tylenol 650 mg q.i.d. 6. Baclofen 5 mg q.6 p.r.n. for muscle spasm. 7. Neurontin 300 mg q.h.s. 8. DuoNeb t.i.d. 9. Naproxen 250 mg p.o. q.i.d. 10.Prednisone taper. 11.Amitriptyline 25 mg q.h.s. DISPOSITION: [facility]. Follow up with Rene Tapia in 2 weeks. Follow up with Jaxon Osullivan after discharge from the [facility]. Follow up with Dr. Jeff at the [facility]. MMODL / SANDRAN: [id number] /
[2018-11-06] MEDS: ACETAMINOPHEN TAB 325 MG TAB PO SCH ×4 (14:44→23:08)
[2018-11-06] MEDS: ONDANSETRON 4 MG/2 ML VIAL IVP PRN (17:31)
[2018-11-06] MEDS: GABAPENTIN 300 MG CAP PO SCH (20:43)
[2018-11-07] MEDS: IPRATROPIUM-ALBUTEROL 3 ML NEB INHALATION SCH ×4 (01:29→12:25)
[2018-11-07] MEDS: ACETAMINOPHEN TAB 325 MG TAB PO SCH ×3 (03:26→11:39)
[2018-11-07] MEDS: HYDROcodone/APAP 7.5-325MG 1 EACH TAB PO PRN ×2 (05:52→11:40)
--- NOTE | 2018-11-07 07:12 | PN ---
PROGRESS NOTE DATE OF SERVICE: 11/06/2018 PRESENTING COMPLAINT: Back pain. INTERVAL HISTORY: This patient presented with lower back pain, fell, now found to be from sacral fracture. Pain is present. Tolerating a diet. Resting. REVIEW OF SYSTEMS: Done for constitutional, cardiovascular, GI, pulmonary, musculoskeletal; relevant findings as above. CURRENT MEDICATIONS: Reviewed. PHYSICAL EXAMINATION: On examination, temperature 98.4, pulse 85, respirations 16, blood pressure 127/70, pulse ox 94% on 2 L. GENERAL APPEARANCE: Lying down, awake, a bit anxious. EYES: Pupils equal. Conjunctivae normal. NECK: JVD not raised. Mass not palpable. RESPIRATORY: Effort normal. LUNGS: Decreased breath sounds. CARDIOVASCULAR: First and second sounds normal. No edema. ABDOMEN: Soft, nontender. Liver and spleen not palpable. PSYCHIATRY: Alert and oriented x3. Mood and affect a bit anxious appearing. INVESTIGATIONS: Accu-Cheks are noted. ASSESSMENT: 1. Acute bilateral sacral fracture. 2. Chronic obstructive pulmonary disease in an ex-smoker. 3. Gastroesophageal reflux disease. 4. Chronic hypoxic respiratory failure on 2 L oxygen at home. 5. Sjogren syndrome. 6. Medical debility. 7. Hypoglycemia from decreased oral intake. PLAN: Care was discussed with the patient. Patient was discharge. I was told authorization did not come through. Continue current medication and treatment plan. MMODL / IJN: [id number] /
[2018-11-07 07:47] VITALS: BP 114/71; RESP 18; TEMP 97.5
[2018-11-07] MEDS: buPROPion SR 100 MG TABLET.ER PO SCH (07:54)
[2018-11-07] MEDS: predniSONE 20 MG TAB PO SCH (07:54)
[2018-11-07] MEDS: PANTOPRAZOLE 40 MG TABLET PO SCH (07:55)
[2018-11-07] MEDS: NAPROXEN 250 MG TAB PO SCH ×2 (07:55→12:56)
[2018-11-07] MEDS: ENOXAPARIN 40 MG/0.4 ML SYRINGE SQ SCH (07:57)
[2018-11-07] MEDS: HYDROXYCHLOROQUINE SULFATE 200 MG TAB PO SCH (08:16)
[2018-11-07] MEDS: FORMOTEROL FUMARATE 20 MCG/2 ML NEBU INHALATION SCH (08:58)
[2018-11-07 12:37] VITALS: PULSE 92
--- NOTE | 2018-11-07 13:31 | DS ---
DISCHARGE SUMMARY DATE OF ADMISSION: 11/03/2018 DATE OF DISCHARGE: 11/07/2018 FINAL DIAGNOSES: 1. Acute bilateral sacral fracture secondary to blunt injury. 2. Chronic obstructive pulmonary disease in an ex-smoker. 3. Gastroesophageal reflux disease. 4. Chronic hypoxic respiratory failure on 2 L oxygen. 5. Sjogren syndrome. 6. Medical debility. 7. Hypoglycemia from decreased oral intake. 8. Troponin leak probably from hemodynamic mismatch. 9. Mild protein-calorie malnutrition. The patient has decreased muscle mass. CONSULTATION: Dr. De La Cruz from Pulmonary; Dr. Thompson from Orthopedics. HOSPITAL COURSE: This is a very pleasant 63-year-old patient of Dr. Osullivan's who was trying to move her dining table, felt a crack and developed pain in the hip girdle. She did go and see [facility]. She was told to manage on pain medications. The patient went home, found it difficult to get about. Readmitted for the same. MRI did confirm bilateral sacral fracture. It was determined patient not a surgical candidate. Will be managed conservatively. The patient was counseled about increasing her oral intake. Pain was better by the time of discharge. On examination, afebrile, pulse 90, respiration 18, blood pressure 114/71, pulse ox 95% on 2 L. LUNGS: Decreased breath sounds. CARDIOVASCULAR: First and second sounds normal. PSYCH: AO x3. INVESTIGATIONS: Potassium 3.8. BUN 17, creatinine 0.38. Albumin 3.4. DISCHARGE MEDICATIONS: 1. Plaquenil 200 mg p.o. daily. 2. Protonix 40 mg p.o. daily. 3. Advair 500/50 one puff b.i.d. 4. Wellbutrin SR 100 mg b.i.d. 5. Tylenol 650 mg q.i.d. 6. Baclofen 5 mg q.6 p.r.n. 7. Neurontin 300 mg q.h.s. 8. DuoNeb t.i.d. 9. Naproxen 250 mg q.i.d. 10.Prednisone taper. DISPOSITION: [facility]. Follow up with Dr. Jeff at the [facility]. Follow up with Rene Tapia on 11/12/2018 at 10:30 a.m. Follow up with Dr. Jaxon Osullivan after DC from the [facility]. Orthopedic orders: Patient may weight bear as tolerated on the bilateral lower extremities. The patient should avoid excessive activities in regards to her sacrum. Avoid heavy lifting. K-pad/heating pad in bed. MMODL / IJN: [id number] /
--- NOTE | 2018-11-07 13:33 | P.PN ---
Subjective Progress Note Date: 11/07/18 This is a 63-year-old white female patient of Dr. Osullivan with history of advanced COPD, with baseline FEV1 of 1.04 L or 44% of predicted, and diffusion normality consistent with severe COPD, anxiety, Sjogren syndrome, former smoker who was transferred to [facility] on 11/03/2018 from [facility] where patient went for evaluation of right hip pain. Patient is currently in the process of moving, and she was helping lift a 7 foot table when she started having pain in her right hip. Apparently she [facility]. [facility], who felt that she may have strained or injured around the nerve. Patient was not improving, and she was becoming more short of breath related to pain. CT of abdomen and pelvis was completed at the [facility] And showed evidence of pelvic fracture. Patient was having difficulty bearing weight, with severe pain in her right hip. Patient wears oxygen around the clock for history of COPD, chest x-ray was completed showing prominent lung volumes, diffusing increased interstitial markings, no acute pulmonary process. Lab work showed a white blood cell count of 10.5, hemoglobin of 14.6, INR is 0.9, sodium is 136, potassium 3.8, chloride was 98, CO2 is 32, BUN was 17, creatinine is 0.38, troponin was 0.037, proBNP was 1090, EKG showed sinus rhythm with incomplete right bundle branch block, left ventricular hypertrophy, and ST depression and T-wave inversion in the inferior leads. He denies any complaints of chest pain, no cough or congestion, but lung sounds are positive for diminished breath sounds, and wheezing. No fever or chills. Hemodynamically she is stable. Patient follows with Dr. Dr. De La Cruz in the pulmonary clinic, and she has left upper lobe pulmonary nodule that is being followed on an outpatient basis, PET scan showed SUV of 2.2. Patient was started on breathing treatments, Pulmicort Perforomist, nebulized bronchodilators, oral prednisone The patient is seen today 11/07/2018 in follow-up on the regular medical floor. She is currently resting comfortably in bed. Awake and alert in no acute distress. Maintaining O2 saturations in the 90s on 2 L/m per nasal cannula. Afebrile. Back pain is better controlled. She remains on DuoNeb inhalations, Perforomist inhalations, oral prednisone taper. Objective - Vital Signs Vital signs: Vital Signs Temp 97.5 F L 11/07/18 07:17 Pulse 92 11/07/18 12:36 Resp 18 11/07/18 07:17 BP 114/71 11/07/18 07:17 Pulse Ox 95 11/07/18 07:17 Intake & Output 11/06/18 11/07/18 11/07/18 18:59 06:59 18:59 Output Total 200 Balance -200 Output: Urine 200 Other: # Voids 1 - Exam GENERAL EXAM: Frail, cachectic. Alert, pleasant, 63-year-old female, on 2 L of oxygen with a pulse ox of 95% comfortable in no apparent distress. HEAD: Normocephalic/atraumatic. EYES: Normal reaction of pupils, equal size. Conjunctiva pink, sclera white. NOSE: Clear with pink turbinates. THROAT: No erythema or exudates. NECK: No masses, no JVD, no thyroid enlargement, no adenopathy. CHEST: No chest wall deformity. Symmetrical expansion. LUNGS: Equal air entry with diffuse wheezes CVS: Regular rate and rhythm, normal S1 and S2, no gallops, no murmurs, no rubs ABDOMEN: Soft, nontender. No hepatosplenomegaly, normal bowel sounds, no guarding or rigidity. EXTREMITIES: No clubbing, no edema, no cyanosis, 2+ pulses and upper and lower extremities. MUSCULOSKELETAL: Muscle strength and tone normal. SPINE: No scoliosis or deformity SKIN: No rashes CENTRAL NERVOUS SYSTEM: No focal deficits, tone is normal in all 4 extremities. PSYCHIATRIC: Alert and oriented -3. Appropriate affect. Intact judgment and insight. - Labs CBC & Chem 7: 11/03/18 08:05 11/03/18 08:05 Assessment and Plan Assessment: Assessment: #1. Difficulty ambulating, right hip pain, related to right pelvic fracture, after lifting a table #2. Dyspnea, related to acute COPD exacerbation #3. Mildly elevated proBNP, suggesting exacerbation of CHF #4. Elevated troponin, EKG showed nonspecific ST and T wave changes #5. Stage III COPD, with baseline FEV1 of 44% of predicted, chronic hypercapnic respiratory failure #6. Sjogren's syndrome #7. Left upper lobe pulmonary nodule measuring 7-8 mm x 14 mm, previously measured [id number] mm x 19 mm, PET scan revealed SUV of 2.2 #8. History of GERD/reflux #9. 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 De La Cruz. She remains stable from the pulmonary standpoint. Orthopedics are planning on conservative therapy for the right pelvic fracture and right hip pain. Plan is for discharge to an extended care facility for further inpatient rehabilitation. I, the cosigning physician, performed a history & physical examination of the patient. Lungs sounds with faint bilateral end expiratory wheeze, diminished. Maintaining good O2 saturations in the 90s on 2 L/m per nasal cannula. I discussed the assessment and plan of care with my nurse practitioner, Vanda Cifuentes. I attest to the above note as dictated by her.
== END 2018-11-07 14:00 | DRG 552 ==
LOC: EC 06:15 → 4SSUR 09:49
PROVIDERS: ADMIT Hospitalist; ATTEND Hospitalist
DX: S32.10XA Unspecified fracture of sacrum, initial encounter for closed fracture (principal); J44.1 Chronic obstructive pulmonary disease with (acute) exacerbation; J96.11 Chronic respiratory failure with hypoxia; J96.12 Chronic respiratory failure with hypercapnia; R64 Cachexia; E44.1 Mild protein-calorie malnutrition; Z68.1 Body mass index [BMI] 19.9 or less, adult; I50.9 Heart failure, unspecified; M35.00 Sjogren syndrome, unspecified; M46.96 Unspecified inflammatory spondylopathy, lumbar region; M51.16 Intervertebral disc disorders with radiculopathy, lumbar region; R91.1 Solitary pulmonary nodule; E16.2 Hypoglycemia, unspecified; I45.10 Unspecified right bundle-branch block; K21.9 Gastro-esophageal reflux disease without esophagitis; R26.2 Difficulty in walking, not elsewhere classified; F41.9 Anxiety disorder, unspecified; R77.8 Other specified abnormalities of plasma proteins; Z99.81 Dependence on supplemental oxygen; Z79.51 Long term (current) use of inhaled steroids; Z79.899 Other long term (current) drug therapy; Z71.3 Dietary counseling and surveillance; Z87.01 Personal history of pneumonia (recurrent); Z90.49 Acquired absence of other specified parts of digestive tract; Z90.710 Acquired absence of both cervix and uterus; Z87.891 Personal history of nicotine dependence; Z98.890 Other specified postprocedural states; Z88.1 Allergy status to other antibiotic agents; Z91.041 Radiographic dye allergy status; Z88.0 Allergy status to penicillin; Z88.8 Allergy status to other drugs, medicaments and biological substances; Z91.018 Allergy to other foods; Y92.009 Unspecified place in unspecified non-institutional (private) residence as the place of occurrence of the external cause; X50.0XXA Overexertion from strenuous movement or load, initial encounter; Z80.1 Family history of malignant neoplasm of trachea, bronchus and lung; Z80.3 Family history of malignant neoplasm of breast
CPT/HCPCS: 36415; 71045; 72148; 72195; 80053; 83735; 83880; 84484; 85025; 85610; 85730; 93005; 94640; 94760; 96374; 96375; 99285

== ENCOUNTER 2019-04-07 07:03 | Emergency (ER) | payer MEDICARE, BC ==
[2019-04-07 07:15] VITALS: BP 144/63; RESP 19; TEMP 98.2
[2019-04-07] MEDS ORDERED: MORPHINE SULFATE 4 MG/ML SYRINGE IM STA (07:27)
[2019-04-07] MEDS ORDERED: IPRATROPIUM-ALBUTEROL 3 ML NEB INHALATION STA (07:27)
--- NOTE | 2019-04-07 07:30 | ED ---
General Adult HPI - General Chief complaint: Back Pain/Injury Stated complaint: back pain Time Seen by Provider: 04/07/19 07:21 Source: patient, RN notes reviewed Mode of arrival: wheelchair Limitations: no limitations - History of Present Illness Initial comments: Patient is a pleasant 64-year-old female presenting to the emergency Department with right posterior rib pain. Patient states 2 days ago she reached down to stop her dog and felt a pop in her right posterior ribs. Patient has had discomfort since that time. Discomfort does increase with movement. No low back pain. No weakness. Patient has chronic dyspnea however this is unchanged. No anterior chest pain. No abdominal pain. Patient does have history of some similar symptoms previously however in different areas. - Related Data Home Medications Medication Instructions Recorded Confirmed Hydroxychloroquine Sulfate 200 mg PO DAILY 03/29/15 04/07/19 [Plaquenil] Pantoprazole Sodium [Protonix] 40 mg PO DAILY 03/29/15 04/07/19 Fluticasone/Salmeterol [Advair 1 puff INHALATION RT-DAILY 05/31/16 04/07/19 500-50 Diskus] Acetaminophen Tab [Tylenol] 650 mg PO QID PRN 04/07/19 04/07/19 Gabapentin [Neurontin] 300 mg PO BID 04/07/19 04/07/19 Levalbuterol Hfa Inhaler [Xopenex 1 puff INHALATION RT-DAILY PRN 04/07/19 04/07/19 Hfa Inhaler] Tiotropium 18 Mcg/Puff [Spiriva] 1 puff INHALATION RT-BID 04/07/19 04/07/19 buPROPion HCL [Wellbutrin XL] 300 mg PO BID 04/07/19 04/07/19 Allergies Allergy/AdvReac Type Severity Reaction Status Date / Time banana Allergy Abdominal Verified 04/07/19 08:25 Pain budesonide [From Pulmicort] Allergy Dyspnea Verified 04/07/19 08:25 Iodinated Contrast Media Allergy Anaphylaxis Verified 04/07/19 08:25 [Iodinated Contrast Media - IV Dye] penicillin G Allergy Rash/Hives Verified 04/07/19 08:25 levofloxacin AdvReac joint pain Verified 04/07/19 08:25 verapamil AdvReac HEADACHE Verified 04/07/19 08:25 Review of Systems ROS Statement: Those systems with pertinent positive or pertinent negative responses have been documented in the HPI. ROS Other: All systems not noted in ROS Statement are negative. Constitutional: Denies: fever Eyes: Denies: eye pain ENT: Denies: ear pain Respiratory: Reports: as per HPI Cardiovascular: Denies: chest pain Endocrine: Denies: fatigue Gastrointestinal: Denies: abdominal pain Genitourinary: Denies: dysuria Musculoskeletal: Reports: as per HPI Skin: Denies: rash Neurological: Denies: weakness Past Medical History Past Medical History: COPD, GERD/Reflux, Pneumonia, Respiratory Disorder Additional Past Medical History / Comment(s): COPD with an FEV of 35% , DONTE lung nodules being monitored measuring 8x14mm , home O2 at 2L/NC ATC mostly lately, SJORGEN'S SYNDROME History of Any Multi-Drug Resistant Organisms: None Reported Past Surgical History: Cholecystectomy, Hysterectomy, Orthopedic Surgery Additional Past Surgical History / Comment(s): Bronchoscopies with bx, [place] wrist carpal tunnel, TMJ surgery, L neck cyst removed, colonoscopy. Past Anesthesia/Blood Transfusion Reactions: Previous Problems w/ Anesthesia Additional Past Anesthesia/Blood Transfusion Reaction / Comment(s): SLOW TO WAKE UP Past Psychological History: No Psychological Hx Reported Smoking Status: Former smoker Past Alcohol Use History: None Reported Past Drug Use History: None Reported - Past Family History Father Family Medical History: Cancer Additional Family Medical History / Comment(s): LUNG Mother Family Medical History: Cancer Additional Family Medical History / Comment(s): BREAST General Exam Limitations: no limitations General appearance: alert, in no apparent distress Head exam: Present: normocephalic Eye exam: Present: normal appearance, PERRL ENT exam: Present: normal oropharynx Neck exam: Present: normal inspection Respiratory exam: Present: decreased breath sounds Cardiovascular Exam: Present: regular rate, normal rhythm GI/Abdominal exam: Present: soft. Absent: tenderness Extremities exam: Present: pedal edema (trace bilateral which patient states is chronic). Absent: calf tenderness Back exam: Present: tenderness (Mild tenderness right posterior ribs approximately rib 9 and 10.) Neurological exam: Present: alert Psychiatric exam: Present: normal affect, normal mood Skin exam: Present: normal color. Absent: rash Course Vital Signs 04/07/19 04/07/19 04/07/19 07:12 07:35 07:45 Temperature 98.2 F Pulse Rate 80 86 78 Respiratory 19 Rate Blood Pressure 144/63 O2 Sat by Pulse 99 Oximetry Medical Decision Making - Medical Decision Making Patient reevaluated and feels much better. Patient denies any symptoms of fever or cough and does not have concern for infectious process. Patient and family updated on results and need for follow-up. - Radiology Data Radiology results: image reviewed (Chest x-ray shows no evidence of rib fracture. Some increased interstitial markings) Disposition Clinical Impression: Strain of thoracic region Disposition: HOME SELF-CARE Condition: Stable Instructions (If sedation given, give patient instructions): Muscle Strain (ED) Additional Instructions: Please follow-up with primary care physician in the next couple days for recheck. Return for difficulty breathing, increased pain, fevers, worsening symptoms or other concerns. Is patient prescribed a controlled substance at d/c from ED?: No Referrals: Jaxon Osullivan DO [Primary Care Provider] - 1-2 days Time of Disposition: 08:44
[2019-04-07 07:46] VITALS: PULSE 78
--- NOTE | 2019-04-07 08:13 | XR ---
EXAMINATION TYPE: PA chest with right rib series DATE OF EXAM: 04/07/2019 COMPARISON: 11/03/2018 TECHNIQUE: 3 views HISTORY: 64-year-old female with right rib pain FINDINGS: Heart upper limits of normal in size. Atherosclerotic arch calcification. Diffuse interstitial densit ies. Density is less confluent in the left upper lobe. Slightly more patchy at the left base, probabl y atelectasis. Mild hyperinflation. No displaced right rib fracture. IMPRESSION: No displaced right rib fracture seen. Interstitial changes, appear largely chronic possible underlyin g COPD. Correlate to exclude bronchitis or asthma or underlying atypical pneumonias.
[2019-04-07] MEDS ORDERED: ACET/COD 300 MG/30 MG STARTER PACK 6 TAB BTL PO STA (08:44)
== END 2019-04-07 08:54 | disposition home or self-care (01) ==
LOC: EC 07:03
DX: S29.012A Strain of muscle and tendon of back wall of thorax, initial encounter (principal); J44.9 Chronic obstructive pulmonary disease, unspecified; K21.9 Gastro-esophageal reflux disease without esophagitis; Z79.899 Other long term (current) drug therapy; Z79.51 Long term (current) use of inhaled steroids; Z91.018 Allergy to other foods; Z88.8 Allergy status to other drugs, medicaments and biological substances; Z91.041 Radiographic dye allergy status; Z88.0 Allergy status to penicillin; Z88.1 Allergy status to other antibiotic agents; Z87.891 Personal history of nicotine dependence; X50.9XXA Other and unspecified overexertion or strenuous movements or postures, initial encounter
CPT/HCPCS: 94640; 71101; 99283; 96372; J2270

== ENCOUNTER 2019-04-11 15:26 | Emergency (ER) | payer MEDICARE, BC ==
--- NOTE | 2019-04-11 16:27 | ED ---
SOB HPI - General Chief Complaint: Shortness of Breath Stated Complaint: GILLES Time Seen by Provider: 04/11/19 15:59 Source: patient Mode of arrival: ambulatory Limitations: no limitations - History of Present Illness Initial Comments: Patient is a 64-year-old female, with past medical history of COPD on home oxygen as needed, presenting to emergency Department with complaints of shortness of breath has been increasing over the last 3-4 days. 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 Patient states her chest x-ray and rib x- rays were okay when she was here however her shortness of breath has increased. Patient also continues to have increase in her low back pain. Patient admits to previous lumbar surgery approximately 3 years ago. Patient states she has been taking Motrin for for her back pain with only minimal improvement. Patient denies recent fever, chills, abdominal pain, chest pain. Patient has no other complaints at this time. Upon arrival to the ER, Aspiratory rate is 26, 97% on room air, 97.7 temp, BP is 143/58, pulse is 81. - Related Data Home Medications Medication Instructions Recorded Confirmed Hydroxychloroquine Sulfate 200 mg PO DAILY 03/29/15 04/07/19 [Plaquenil] Pantoprazole Sodium [Protonix] 40 mg PO DAILY 03/29/15 04/07/19 Fluticasone/Salmeterol [Advair 1 puff INHALATION RT-DAILY 05/31/16 04/07/19 500-50 Diskus] Acetaminophen Tab [Tylenol] 650 mg PO QID PRN 04/07/19 04/07/19 Gabapentin [Neurontin] 300 mg PO BID 04/07/19 04/07/19 Levalbuterol Hfa Inhaler [Xopenex 1 puff INHALATION RT-DAILY PRN 04/07/19 04/07/19 Hfa Inhaler] Tiotropium 18 Mcg/Puff [Spiriva] 1 puff INHALATION RT-BID 04/07/19 04/07/19 buPROPion HCL [Wellbutrin XL] 300 mg PO BID 04/07/19 04/07/19 Previous Rx's Medication Instructions Recorded Cyclobenzaprine [Flexeril] 5 mg PO BID #10 tablet 04/11/19 methylPREDNISolone [Medrol Dose 4 mg PO DIRECTED #1 pack 04/11/19 Pack] Allergies Allergy/AdvReac Type Severity Reaction Status Date / Time banana Allergy Abdominal Verified 04/07/19 08:25 Pain budesonide [From Pulmicort] Allergy Dyspnea Verified 04/11/19 15:32 Iodinated Contrast Media Allergy Anaphylaxis Verified 04/11/19 15:32 [Iodinated Contrast Media - IV Dye] penicillin G Allergy Rash/Hives Verified 04/11/19 15:32 levofloxacin AdvReac joint pain Verified 04/11/19 15:32 verapamil AdvReac HEADACHE Verified 04/11/19 15:32 Review of Systems ROS Statement: Those systems with pertinent positive or pertinent negative responses have been documented in the HPI. ROS Other: All systems not noted in ROS Statement are negative. Past Medical History Past Medical History: COPD, GERD/Reflux, Pneumonia, Respiratory Disorder Additional Past Medical History / Comment(s): COPD with an FEV of 35% , DONTE lung nodules being monitored measuring 8x14mm , home O2 at 2L/NC ATC mostly lately, SJORGEN'S SYNDROME History of Any Multi-Drug Resistant Organisms: None Reported Past Surgical History: Cholecystectomy, Hysterectomy, Orthopedic Surgery Additional Past Surgical History / Comment(s): Bronchoscopies with bx, [place] wrist carpal tunnel, TMJ surgery, L neck cyst removed, colonoscopy. Past Anesthesia/Blood Transfusion Reactions: Previous Problems w/ Anesthesia Additional Past Anesthesia/Blood Transfusion Reaction / Comment(s): SLOW TO WAKE UP Past Psychological History: No Psychological Hx Reported Smoking Status: Former smoker Past Alcohol Use History: None Reported Past Drug Use History: None Reported - Past Family History Father Family Medical History: Cancer Additional Family Medical History / Comment(s): LUNG Mother Family Medical History: Cancer Additional Family Medical History / Comment(s): BREAST General Exam - General Exam Comments Initial Comments: GENERAL: Well-appearing, well-nourished and in no acute distress, but appears uncomfortable. HEAD: Atraumatic, normocephalic. EYES: Pupils equal round and reactive to light, extraocular movements intact, sclera anicteric, conjunctiva are normal. ENT: Nares patent, oropharynx clear without exudates. Moist mucous membranes. NECK: Normal range of motion, supple without lymphadenopathy or JVD. LUNGS: Decreased breath sounds bilaterally, wheezing present in all lung sewell. No rales or rhonchi. Improvement in breath sounds and wheezing post-breathing treatment. HEART: Regular rate and rhythm without murmurs, rubs or gallops. ABDOMEN: Soft, nontender, normoactive bowel sounds. No guarding, no rebound. No masses appreciated. EXTREMITIES: Pain with palpation of the bilateral lumbar paraspinals. Pain with trunk motion. No pitting or edema. No clubbing or cyanosis. NEUROLOGICAL: Cranial nerves II through XII grossly intact. Normal speech, normal gait. PSYCH: Normal mood, normal affect. SKIN: Warm, Dry, normal turgor, no rashes or lesions noted. Limitations: no limitations Course Vital Signs 04/11/19 04/11/19 04/11/19 15:28 15:47 16:00 Temperature 97.7 F Pulse Rate 81 73 71 Respiratory 26 H 10 L 21 Rate Blood Pressure 143/58 O2 Sat by Pulse 97 100 100 Oximetry 04/11/19 04/11/19 04/11/19 16:30 16:32 16:41 Temperature Pulse Rate 80 69 Respiratory 20 18 18 Rate Blood Pressure 136/71 O2 Sat by Pulse 100 100 Oximetry 04/11/19 04/11/19 04/11/19 17:00 17:30 18:00 Temperature Pulse Rate 75 70 75 Respiratory 20 20 20 Rate Blood Pressure 145/72 151/66 129/83 O2 Sat by Pulse 98 99 100 Oximetry 04/11/19 04/11/19 04/11/19 18:27 18:30 18:35 Temperature Pulse Rate 77 78 73 Respiratory 22 Rate Blood Pressure 134/70 O2 Sat by Pulse 100 Oximetry 04/11/19 18:45 Temperature 98.2 F Pulse Rate 82 Respiratory 20 Rate Blood Pressure 137/81 O2 Sat by Pulse 97 Oximetry Medical Decision Making - Medical Decision Making Patient is a 64-year-old female presenting with low back pain as well as increasing shortness of breath 4 days. Patient was in the ER 4 days ago for same low back complaint and received x-rays which were normal. Patient does have COPD and this feels like an exacerbation to her. Lab work today is within normal limits. EKG shows no acute changes, similar to previous EKG. Chest x- ray shows COPD, no consolidation or pleural effusion. There is a mild nodular density in the peripheral right base. Outpatient CT chest is recommended. X- rays of the lumbar spine reveal osteopenia, no vertebral compression collapse. There is athropathy. Patient received a breathing treatment which did improve her wheezing. Patient will be started on steroids, Flexeril for muscle spasm as well as a short course of tramadol for pain relief. Patient is agreement with this plan of care. Patient is asking to be discharged and does not want to stay. Vital signs are stable. She is stable for discharge at this time and she is in agreement with this plan of care. Strict return parameters were discussed with the patient she verbalized understanding. Case discussed with Dr. Zazueta. - Lab Data Result diagrams: 04/11/19 15:50 04/11/19 15:50 Lab Results 04/11/19 04/11/19 04/11/19 Range/Units 15:50 15:50 15:50 WBC 5.6 (3.8-10.6) k/uL RBC 4.79 (3.80-5.40) m/uL Hgb 14.4 (11.4-16.0) gm/dL Hct 45.0 (34.0-46.0) % MCV 94.0 (80.0-100.0) fL MCH 30.1 (25.0-35.0) pg MCHC 32.1 (31.0-37.0) g/dL RDW 13.8 (11.5-15.5) % Plt Count 175 (150-450) k/uL Neutrophils % 65 % Lymphocytes % 24 % Monocytes % 6 % Eosinophils % 2 % Basophils % 1 % Neutrophils # 3.6 (1.3-7.7) k/uL Lymphocytes # 1.3 (1.0-4.8) k/uL Monocytes # 0.3 (0-1.0) k/uL Eosinophils # 0.1 (0-0.7) k/uL Basophils # 0.1 (0-0.2) k/uL PT 9.7 (9.0-12.0) sec INR 0.9 (<1.2) APTT 23.7 (22.0-30.0) sec Sodium 142 (137-145) mmol/L Potassium 3.7 (3.5-5.1) mmol/L Chloride 104 (98-107) mmol/L Carbon Dioxide 31 H (22-30) mmol/L Anion Gap 7 mmol/L BUN 19 H (7-17) mg/dL Creatinine 0.54 (0.52-1.04) mg/dL Est GFR (CKD-EPI)AfAm >90 (>60 ml/min/1.73 sqM) Est GFR (CKD-EPI)NonAf >90 (>60 ml/min/1.73 sqM) Glucose 72 L (74-99) mg/dL Calcium 9.6 (8.4-10.2) mg/dL Total Bilirubin 0.5 (0.2-1.3) mg/dL AST 21 (14-36) U/L ALT 20 (9-52) U/L Alkaline Phosphatase 65 (38-126) U/L Troponin I (0.000-0.034) ng/mL Total Protein 6.3 (6.3-8.2) g/dL Albumin 4.0 (3.5-5.0) g/dL 04/11/19 Range/Units 15:50 WBC (3.8-10.6) k/uL RBC (3.80-5.40) m/uL Hgb (11.4-16.0) gm/dL Hct (34.0-46.0) % MCV (80.0-100.0) fL MCH (25.0-35.0) pg MCHC (31.0-37.0) g/dL RDW (11.5-15.5) % Plt Count (150-450) k/uL Neutrophils % % Lymphocytes % % Monocytes % % Eosinophils % % Basophils % % Neutrophils # (1.3-7.7) k/uL Lymphocytes # (1.0-4.8) k/uL Monocytes # (0-1.0) k/uL Eosinophils # (0-0.7) k/uL Basophils # (0-0.2) k/uL PT (9.0-12.0) sec INR (<1.2) APTT (22.0-30.0) sec Sodium (137-145) mmol/L Potassium (3.5-5.1) mmol/L Chloride (98-107) mmol/L Carbon Dioxide (22-30) mmol/L Anion Gap mmol/L BUN (7-17) mg/dL Creatinine (0.52-1.04) mg/dL Est GFR (CKD-EPI)AfAm (>60 ml/min/1.73 sqM) Est GFR (CKD-EPI)NonAf (>60 ml/min/1.73 sqM) Glucose (74-99) mg/dL Calcium (8.4-10.2) mg/dL Total Bilirubin (0.2-1.3) mg/dL AST (14-36) U/L ALT (9-52) U/L Alkaline Phosphatase (38-126) U/L Troponin I 0.014 (0.000-0.034) ng/mL Total Protein (6.3-8.2) g/dL Albumin (3.5-5.0) g/dL - EKG Data EKG Comments: Ventricular rate 77, TN interval 88, QTC 425. Sinus rhythm with short TN with PACs. Incomplete right BBB. Left ventricular hypertrophy. T wave abnormality. EKG similar to previous on 11/03/2018. Disposition Clinical Impression: Low back strain, COPD exacerbation Disposition: HOME SELF-CARE Condition: Stable Instructions (If sedation given, give patient instructions): COPD (Chronic Obstructive Pulmonary Disease) (ED), Low Back Strain (ED) Additional Instructions: Please return to the Emergency Department if symptoms worsen or any other concerns. Take steroids as prescribed. Use heat to the area. Follow-up with PCP if low back pain persist after one to 2 weeks. Prescriptions: Cyclobenzaprine [Flexeril] 5 mg PO BID #10 tablet methylPREDNISolone [Medrol Dose Pack] 4 mg PO DIRECTED #1 pack Is patient prescribed a controlled substance at d/c from ED?: No Referrals: Jaxon Osullivan DO [Primary Care Provider] - 1-2 days
[2019-04-11 16:52] LABS: Basophils # (A) 0.1 k/uL (0-0.2); Basophils % (A) 1 %; Eosinophils # (A) 0.1 k/uL (0-0.7); Eosinophils % (A) 2 %; HGB 14.4 gm/dL (11.4-16.0); Lymphocytes # (A) 1.3 k/uL (1.0-4.8); Lymphocytes % (A) 24 %; MCH 30.1 pg (25.0-35.0); MCHC 32.1 g/dL (31.0-37.0); Mean Platelet Volume 7.2; Monocytes # (A) 0.3 k/uL (0-1.0); Monocytes % (A) 6 %; Neutrophils # (A) 3.6 k/uL (1.3-7.7); Neutrophils % (A) 65 %; Platelet Count 175 k/uL (150-450); RBC 4.79 m/uL (3.80-5.40); RDW 13.8 % (11.5-15.5); WBC 5.6 k/uL (3.8-10.6)
[2019-04-11 17:02] LABS: ALT 20 U/L (9-52); AST 21 U/L (14-36); African American GFR (CKD) >90 (>60 ml/min/1.73 sqM); Alkaline Phosphatase 65 U/L (38-126); Anion Gap 7 mmol/L; Blood Urea Nitrogen 19 mg/dL (7-17); Calcium 9.6 mg/dL (8.4-10.2); Carbon Dioxide 31 mmol/L (22-30); Chloride 104 mmol/L (98-107); Glucose 72 mg/dL (74-99); INR 0.9 (<1.2); Partial Thromboplastin Time 23.7 sec (22.0-30.0); Potassium 3.7 mmol/L (3.5-5.1); Prothrombin Time 9.7 sec (9.0-12.0); Sodium 142 mmol/L (137-145); Total Bilirubin 0.5 mg/dL (0.2-1.3); Total Protein 6.3 g/dL (6.3-8.2)
--- NOTE | 2019-04-11 17:08 | XR ---
EXAMINATION TYPE: XR chest 2V DATE OF EXAM: 04/11/2019 COMPARISON: 04/07/2019 HISTORY: 64-year-old female difficulty breathing, shortness of breath TECHNIQUE: PA and lateral views FINDINGS: Heart upper limits of normal in size. Atherosclerotic arch calcifications. Hyperinflation with contin ued diffuse interstitial changes. Some subtle nodularity or patchy density at the peripheral right lo wer lung may be more defined. Otherwise, no consolidation or pleural effusion. Accentuated lower thor acic kyphosis. IMPRESSION: 1. Borderline heart size and COPD. 2. Interstitial changes appear fairly stable. 3. Mild nodular densities peripheral right base. Nonemergent contrast enhanced CT chest can exclude u nderlying pulmonary nodules given the patient's increased risk for development of lung cancer.
--- NOTE | 2019-04-11 17:10 | XR ---
EXAMINATION TYPE: XR lumbar spine 2 or 3V DATE OF EXAM: 04/11/2019 COMPARISON: None HISTORY: 64-year-old female with low back pain TECHNIQUE: 3 views FINDINGS: Osteopenia. 5 lumbar type vertebral bodies. Hypertrophic facet arthropathy mid to lower lum bar spine. Vertebral body heights are preserved. Trace grade 1 retrolisthesis at L4-L5. Dense atheros clerotic calcifications throughout the abdominal aorta. Cholecystectomy clips. IMPRESSION: Osteopenia. No vertebral compression collapse. Facet arthropathy mid to lower lumbar spine. Trace gra de 1 retrolisthesis at L4-L5.
[2019-04-11] MEDS ORDERED: IPRATROPIUM-ALBUTEROL 3 ML NEB INHALATION STA (17:41)
[2019-04-11 19:00] VITALS: BP 137/81; PULSE 82; RESP 20; TEMP 98.2
[2019-04-11] MEDS ORDERED: traMADol 50 MG STARTER PACK 3 TAB BTL PO STA (19:14)
== END 2019-04-11 19:25 | disposition home or self-care (01) ==
LOC: EC 15:26
DX: J44.1 Chronic obstructive pulmonary disease with (acute) exacerbation (principal); S39.012A Strain of muscle, fascia and tendon of lower back, initial encounter; M85.88 Other specified disorders of bone density and structure, other site; M62.830 Muscle spasm of back; K21.9 Gastro-esophageal reflux disease without esophagitis; Z79.51 Long term (current) use of inhaled steroids; Z79.899 Other long term (current) drug therapy; Z91.018 Allergy to other foods; Z88.8 Allergy status to other drugs, medicaments and biological substances; Z91.041 Radiographic dye allergy status; Z88.0 Allergy status to penicillin; Z88.1 Allergy status to other antibiotic agents; Z99.81 Dependence on supplemental oxygen; Z87.891 Personal history of nicotine dependence; X58.XXXA Exposure to other specified factors, initial encounter
CPT/HCPCS: 36415; 71046; 72100; 80053; 84484; 85025; 85610; 85730; 93005; 94640; 99285

== ENCOUNTER → 2019-04-29 | Outpatient (CLI) | payer MEDICARE, BC ==
[~2019-04-29] MED LIST changes: -ALBUTEROL NEB (CONC) 2.5 MG/0.5 ML INHALATION ONE; -ATROPINE SULFATE 0.4 MG/ML 1 ML VIAL IM ONE; +DENOSUMAB 60 MG/ML 1 ML SYRINGE SQ ONE; -DEXAMETHASONE SOD PHOSPHATE 10 MG/ML 1 ML VIAL IV ONE; -HYDROmorphone 1 MG/ML 1 ML SYRINGE IVP PRN; -LACTATED RINGERS 1,000 ML IV ONE; -LACTATED RINGERS 1,000 ML IV SCH; -LIDOCAINE 1% 20 ML VIAL (10MG/ML) FOR IV START INTRADERMA PRN; -LIDOCAINE 2% (PF) 20 MG/ML 10ML INHALATION ONE; -MIDAZOLAM 2 MG/2 ML VIAL IV PRN; -ONDANSETRON 4 MG/2 ML VIAL IVP ONE; -SCOPOLAMINE 1.5MG/72HR PATCH TRANSDERM ONE
[2019-04-29 13:45] VITALS: BP 131/68; RESP 18; TEMP 97.9
== END | disposition home or self-care (01) ==
LOC: PROCWHC3 13:01
PROVIDERS: ATTEND Family Medicine
DX: M81.0 Age-related osteoporosis without current pathological fracture (principal)
CPT/HCPCS: 96372; J0897

== ENCOUNTER → 2019-05-02 | Outpatient (CLI) | payer MEDICARE, BC ==
[2019-05-02 09:03] LABS: African American GFR (CKD) >90 (>60 ml/min/1.73 sqM); Blood Urea Nitrogen 12 mg/dL (7-17); Non-African American GFR(CKD) >90 (>60 ml/min/1.73 sqM)
--- NOTE | 2019-05-02 09:56 | CT ---
EXAMINATION TYPE: CT chest w con DATE OF EXAM: 05/02/2019 COMPARISON: 04/04/2018 HISTORY: Pulmonary nodule CT DLP: 95.3 mGycm Automated exposure control for dose reduction was used. CONTRAST: CT scan of the chest is performed with IV Contrast, patient injected with 100 mL of Isovue 300. FINDINGS: LUNGS: Severe emphysematous changes noted bilaterally. No focal consolidation or volume loss. No evid ence for pleural effusion. MEDIASTINUM: There are no greater than 1 cm hilar or mediastinal lymph nodes. No pericardial effusi on is seen. Thoracic aorta is of normal caliber. The heart is not enlarged. UPPER ABDOMEN: No significant abnormality appreciated. OTHER: No additional significant abnormality is seen. IMPRESSION: 1 COPD with severe emphysematous change.
== END ==
LOC: RADCTMAIN 08:04
PROVIDERS: ATTEND Family Medicine
DX: J43.9 Emphysema, unspecified (principal)
CPT/HCPCS: 36415; 71260; 82565; 84520

== ENCOUNTER → 2019-05-23 | Outpatient (CLI) | payer MEDICARE, BC ==
--- NOTE | 2019-05-23 10:19 | USB ---
Reason for exam: clinical finding. Physical Findings: Nurse did not find any significant physical abnormalities on exam. US Breast Axilla LT Left breast axilla ultrasound demonstrates no cystic or solid lesion seen. These results were verbally communicated with the patient and result sheet given to the patient on 05/23/19. ASSESSMENT: Negative, BI-RAD 1 RECOMMENDATION: Clinical management of the left breast. Manage patient on a clinical basis.
== END | disposition home or self-care (01) ==
LOC: RADUSWWP 08:56
PROVIDERS: ATTEND Surgery
DX: C50.512 Malignant neoplasm of lower-outer quadrant of left female breast (principal)

== ENCOUNTER → 2019-05-23 | Outpatient (CLI) | payer MEDICARE, BC ==
[2019-05-23 08:08] VITALS: BP 145/79; PULSE 82; RESP 18; TEMP 98
--- NOTE | 2019-05-23 08:55 | P.GSHP ---
History of Present Illness H&P Date: 05/23/19 Chief Complaint: Left breast invasive ductal carcinoma Franca is a 64-year-old white female seen in consultation for Dr. Osullivan regarding left breast invasive ductal carcinoma. The patient states that approximately 2 days prior to a routine mammogram which was performed on she noted a nodule in her left breast. The mammogram showed a faintly visualized rounded area measuring approximately 1 cm on the mediolateral oblique view of the left breast. Nothing was described of concern in the right breast. An ultrasound was then performed. The ultrasound revealed a 1.1 cm rounded mass at the area of the palpable abnormality. Ultrasound core biopsy was performed. Ultrasound core biopsy revealed a grade 2 ER positive [place] positive HER-2/surjit equivocal invasive ductal carcinoma. The patient does not feel any other masses or lumps in her breasts. She does not have any nipple discharge of concern. No skin changes. No history of any recent trauma or infection of the breast. Patient has had a prior left breast biopsy which was benign. Family history: mother: breast cancer in 50's maternal grandmother: of breast cancer, in her 40's father: lung cancer maternal cousin: breast cancer Hormonal history: menarche: 11 breast fed: no, age at : 19 menopause: 49 BCP: 1 years hormones: none Surgical history: 1. Hysterectomy; did not take the ovaries; done secondary to pain 2. Cholecystectomy 3. TMJ 4. Cyst removed from left side of neck Medical History: 1. COPD 2. sojorns syndrome 3. reflux 4. Osteoarthritis/severe back fracture 3 times as well as pelvic fracture Social History: Smoke: Stopped approximately 3 years ago, 1 pack per day for 45 years Alcohol: Negative Drugs: Negative - Constitutional Constitutional: Denies chills, Denies fever - EENT Eyes: denies blurred vision, denies pain Ears: deny: decreased hearing, tinnitus Ears, nose, mouth and throat: Denies headache, Denies sore throat - Breasts Breasts: bilateral: as per HPI - Cardiovascular Cardiovascular: Reports shortness of breath - Respiratory Comment: COPD - Gastrointestinal Gastrointestinal: Denies abdominal pain, Denies diarrhea, Denies nausea, Denies vomiting - Genitourinary (Female) Genitourinary: Denies dysuria, Denies hematuria - Menstruation Menstruation: Reports post hysterectomy - Musculoskeletal Comment: severe osteoarthritis - Integumentary Integumentary: Denies pruritus, Denies rash - Neurological Neurological: Denies numbness, Denies weakness - Psychiatric Psychiatric: Denies anxiety, Denies depression - Endocrine Comment: weight loss unsure why, 25 pound loss over past year Endocrine: Reports weight change, Denies fatigue - Hematologic/Lymphatic Comment: none - Allergic/Immunologic Allergic/Immunologic: Reports as per HPI Past Medical History Past Medical History: COPD, GERD/Reflux, Pneumonia, Respiratory Disorder Additional Past Medical History / Comment(s): COPD with an FEV of 35% , DONTE lung nodules being monitored measuring 8x14mm , home O2 at 2L/NC ATC mostly lately, SJORGEN'S SYNDROME History of Any Multi-Drug Resistant Organisms: None Reported Past Surgical History: Cholecystectomy, Hysterectomy, Orthopedic Surgery Additional Past Surgical History / Comment(s): Bronchoscopies with bx, [place] wrist carpal tunnel, TMJ surgery, L neck cyst removed, colonoscopy. Past Anesthesia/Blood Transfusion Reactions: Previous Problems w/ Anesthesia Additional Past Anesthesia/Blood Transfusion Reaction / Comment(s): SLOW TO WAKE UP Smoking Status: Former smoker - Past Family History Father Family Medical History: Cancer Additional Family Medical History / Comment(s): LUNG Mother Family Medical History: Cancer Additional Family Medical History / Comment(s): BREAST Medications and Allergies Home Medications Medication Instructions Recorded Confirmed Type Hydroxychloroquine Sulfate 200 mg PO QAM 03/29/15 05/23/19 History [Plaquenil] Pantoprazole Sodium [Protonix] 40 mg PO QAM 03/29/15 05/23/19 History Fluticasone/Salmeterol [Advair 1 puff INHALATION RT-DAILY 05/31/16 05/23/19 History 500-50 Diskus] Gabapentin [Neurontin] 300 mg PO BID 04/07/19 05/23/19 History Levalbuterol Hfa Inhaler [Xopenex 1 puff INHALATION RT-DAILY PRN 04/07/19 05/23/19 History Hfa Inhaler] Tiotropium 18 Mcg/Puff [Spiriva] 1 puff INHALATION RT-BID 04/07/19 05/23/19 History buPROPion HCL [Wellbutrin XL] 300 mg PO BID 04/07/19 05/23/19 History Calcium Carbonate [Calcium] 1,200 mg PO DAILY 04/29/19 05/23/19 History Bisacodyl [Dulcolax] 5 mg PO QAM 05/23/19 05/23/19 History Cholecalciferol (Vitamin D3) 2,000 unit PO QAM 05/23/19 05/23/19 History [Vitamin D3] Famotidine [Pepcid] 20 mg PO QAM 05/23/19 05/23/19 History Allergies Allergy/AdvReac Type Severity Reaction Status Date / Time banana Allergy Abdominal Verified 05/23/19 07:45 Pain budesonide [From Pulmicort] Allergy Dyspnea Verified 05/23/19 07:45 Iodinated Contrast Media Allergy Anaphylaxis Verified 05/23/19 07:45 [Iodinated Contrast Media - IV Dye] penicillin G Allergy Rash/Hives Verified 05/23/19 07:45 levofloxacin AdvReac joint pain Verified 05/23/19 07:45 verapamil AdvReac HEADACHE Verified 05/23/19 07:45 Surgical - Exam - General BMI 18.4 no distress - Eyes normal ocular movement - ENT no hearing loss, no congestion - Neck no masses, trachea midline, no lymphadectomy, no venous distension - Respiratory normal expansion, normal respiratory effort, clear to auscultation - Cardiovascular Rhythm: regular Heart Sounds: normal: S1, S2 - Abdomen Abdomen: soft, non tender, no guarding, no rigid, no rebound - Integumentary normal turgor - Neurologic no disoriented, no combative - Musculoskeletal normal gait - Psychiatric oriented to time, oriented to person, oriented to place, speech is normal, memory intact breast exam: BRA 34A, ptosis grade2 right Breast: Multiple positional exam no dominant masses or nodules of concern Right axilla: No adenopathy of concern Left breast: Multiple facial exam ecchymosis lower outer aspect with approximately 1 cm palpable nodule which is mobile Left axilla: No adenopathy of concern Results Mammogram ultrasound report reviewed Assessment and Plan Assessment: Impression: 1. Biopsy-proven left breast invasive ductal carcinoma 2. Carotid artery stenosis 3. COPD 4. Surgeon syndrome 5. Osteopenia 6. Osteoarthritis 7. Reflux 8. History of fracture of the back and sacrum 9. Low back pain 10. family history of breast cancer Plan: 1. Medical clearance for operative intervention from Dr. De La Cruz/Abran 2. Lumpectomy left breast 3. Appointment with radiation oncology 4.. appointment with medical oncology 5. Presentation of case at tumor board 6. axillary ultrasound 7. We will discuss genetic testing secondary to the family history of breast cancer, and the patient would like to have this performed she understands that if she is not a candidate for Gen. surgery but it would not change her treatment options however she once the information for her family. If she is felt to be a candidate for general anesthesia and her genetic testing with positive she would most likely opt for bilateral mastectomy. We have had a discussion regarding treatment options. Secondary to the patient's COPD it is not felt that she is a candidate for general anesthesia. She is a good candidate based on the tumor size for lumpectomy and radiation therapy. We have discussed risk and benefits and she wishes to proceed. We would do this under local anesthis with sedation. She is going to have an axi llary ultrasound to evaluate for any axillary adenopathy. If this is negative, will follow the axilla clinically. CC; Dr. Osullivan Encounter 60 minutes, > 50% of time spent planning and counselling. Time with Patient: Greater than 30
== END | disposition home or self-care (01) ==
LOC: WWCWWP 07:33
PROVIDERS: ATTEND Surgery
DX: Z53.9 Procedure and treatment not carried out, unspecified reason (principal)

== ENCOUNTER → 2019-06-05 | Outpatient (CLI) | payer MEDICARE, BC ==
--- NOTE | 2019-06-05 10:42 | P.PN ---
Progress Note - Text Progress Note Date: 06/05/19 Patient is a 64-year-old white female who presents for preoperative question. The patient was diagnosed with a left breast stage IA invasive ductal carcinoma. The patient has COPD and is awaiting clearance from pulmonary. She will most likely not be a candidate for general anesthesia. I have recommended lumpectomy of the left breast. Questions by the patient and her include 1. Her HER-2 nu status come back yet? This has come back and it is negative 2. Has her genetic testing come back yet? It is not yet available. 3. Will she be staying overnight in the hospital? Most likely this will be an outpatient procedure 4. She has asked for help with navigating her insurance, I have contacted our nurse navigator who is meeting with the patient with respect to this. Patient is presently scheduled for left breast lumpectomy. This is very palpable stage IA invasive ductal carcinoma. Patient has COPD and is not a candidate for general anesthesia.
[2019-06-05 10:47] VITALS: BP 121/80; PULSE 89; RESP 20; TEMP 98.1
== END | disposition home or self-care (01) ==
LOC: WWCWWP 09:17
PROVIDERS: ATTEND Surgery
DX: Z53.9 Procedure and treatment not carried out, unspecified reason (principal)

== ENCOUNTER → 2019-07-03 | Outpatient (CLI) | payer MEDICARE, BC ==
[2019-07-03 12:14] VITALS: BP 128/75; PULSE 91; RESP 24; TEMP 98
--- NOTE | 2019-07-03 12:54 | P.PN ---
Subjective Progress Note Date: 07/03/19 Principal diagnosis: left breast cancer [id number]- Franca is a 64-year-old white female seen in consultation for Dr. Osullivan regarding left breast invasive ductal carcinoma. The patient states that approximately 2 days prior to a routine mammogram which was performed on she noted a nodule in her left breast. The mammogram showed a faintly visualized rounded area measuring approximately 1 cm on the mediolateral oblique view of the left breast. Nothing was described of concern in the right breast. An ultrasound was then performed. The ultrasound revealed a 1.1 cm rounded mass at the area of the palpable abnormality. Ultrasound core biopsy was performed. Ultrasound core biopsy revealed a grade 2 ER positive [place] positive HER-2/surjit equivocal invasive ductal carcinoma. The patient does not feel any other masses or lumps in her breasts. She does not have any nipple discharge of concern. No skin changes. No history of any recent trauma or infection of the breast. Patient has had a prior left breast biopsy which was benign. The patient is scheduled for an echo and a stress test tomorrow for preoperative clearance. The patient was seen today by Dr. De La Cruz who feels that she has an increased risk for pulmonary complications more so she has general anesthesia. Family history: mother: breast cancer in 50's maternal grandmother: of breast cancer, in her 40's father: lung cancer maternal cousin: breast cancer Hormonal history: menarche: 11 breast fed: no, age at : 19 menopause: 49 BCP: 1 years hormones: none Surgical history: 1. Hysterectomy; did not take the ovaries; done secondary to pain 2. Cholecystectomy 3. TMJ 4. Cyst removed from left side of neck Medical History: 1. COPD 2. sojorns syndrome 3. reflux 4. Osteoarthritis/severe back fracture 3 times as well as pelvic fracture 5. EKG abnormal last week/ must be addressed prior to clearance Social History: Smoke: Stopped approximately 3 years ago, 1 pack per day for 45 years Alcohol: Negative Drugs: Negative - Constitutional Constitutional: Denies chills, Denies fever - EENT Eyes: denies blurred vision, denies pain Ears: deny: decreased hearing, tinnitus Ears, nose, mouth and throat: Denies headache, Denies sore throat - Breasts Breasts: bilateral: as per HPI - Cardiovascular Cardiovascular: Reports shortness of breath - Respiratory Comment: COPD - Gastrointestinal Gastrointestinal: Denies abdominal pain, Denies diarrhea, Denies nausea, Denies vomiting - Genitourinary (Female) Genitourinary: Denies dysuria, Denies hematuria - Menstruation Menstruation: Reports post hysterectomy - Musculoskeletal Comment: severe osteoarthritis - Integumentary Integumentary: Denies pruritus, Denies rash - Neurological Neurological: Denies numbness, Denies weakness - Psychiatric Psychiatric: Denies anxiety, Denies depression - Endocrine Comment: weight loss unsure why, 25 pound loss over past year Endocrine: Reports weight change, Denies fatigue - Hematologic/Lymphatic Comment: none - Allergic/Immunologic Allergic/Immunologic: Reports as per HPI Past Medical History Past Medical History: COPD, GERD/Reflux, Pneumonia, Respiratory Disorder Additional Past Medical History / Comment(s): COPD with an FEV of 35% , DONTE lung nodules being monitored measuring 8x14mm , home O2 at 2L/NC ATC mostly lately, SJORGEN'S SYNDROME History of Any Multi-Drug Resistant Organisms: None Reported Past Surgical History: Cholecystectomy, Hysterectomy, Orthopedic Surgery Additional Past Surgical History / Comment(s): Bronchoscopies with bx, [place] wrist carpal tunnel, TMJ surgery, L neck cyst removed, colonoscopy. Past Anesthesia/Blood Transfusion Reactions: Previous Problems w/ Anesthesia Additional Past Anesthesia/Blood Transfusion Reaction / Comment(s): SLOW TO WAKE UP Smoking Status: Former smoker Objective - Vital Signs Vital signs: Vital Signs Temp 98.0 F 07/03/19 12:12 Pulse 91 07/03/19 12:12 Resp 24 07/03/19 12:12 BP 128/75 07/03/19 12:12 Pulse Ox 91 L 07/03/19 12:12 Intake & Output 07/02/19 07/03/19 07/03/19 18:59 06:59 18:59 Weight 47.174 kg - Exam BMI 18.4 - Constitutional General appearance: Present: thin - EENT Eyes: Present: EOMI ENT: Present: hearing grossly normal - Neck Details: no adenopathy Neck: Present: normal ROM - Respiratory Details: decreased breath sounds at bases - Cardiovascular Rhythm: regular Heart sounds: normal: S1, S2 - Gastrointestinal Gastrointestinal Comment(s): no guarding or rebound General gastrointestinal: Present: normal bowel sounds, soft - Musculoskeletal Musculoskeletal Comment(s): kyphosisi Musculoskeletal: Present: gait normal - Psychiatric Psychiatric: Present: A&O x's 3, appropriate affect, intact judgment & insight - Additional findings Additional findings: Breast examination: Inspection: BRA 34A ptosis grade 2/3 No skin changes of concern, no nipple inversion Palpation: Right breast: Multiple positional exam fibrocystic changes no dominant masses or nodules of concern Right axilla: No adenopathy of concern Left breast: Multiple positional exam palpable mass at approximately the 5 o'clock position of the left breast which is mobile Fibrocystic changes no other dominant masses or nodules of concern Left axilla: No adenopathy of concern Assessment and Plan Assessment: Impression: 1. Stage IA left breast cancer/case presented at tumor Board, recommendation for lumpectomy and sentinel node biopsy if cleared by medicine 2. COPD/increased risk for general anesthetic as per pulmonary 3. EKG changes pending echo and stress test to be done tomorrow 4. Surgeon syndrome 5. Reflux 6. Osteoarthritis/severe back pain with fractures 3 times as well as pelvic fracture Plan: 1. Lumpectomy palpable malignancy left breast 2. Consider sentinel node biopsy, patient wishes to have this done; risks and benefits of this are discussed with the patient and her and she strongly wishes to proceed with a sentinel lobe biopsy 3. Stress test and echocardiogram to be done tomorrow 4. Clearance from pulmonary reviewed Patient understands risks and benefits of surgery. She wishes to proceed with lumpectomy and sentinel node biopsy possible axillary node dissection. She understands the risks of general anesthesia and despite this wishes to proceed. I have discussed with pharmacy that she may have 48 mL of half percent lidocaine. We will most likely start her surgery with sedation and local anesthesia. If we have enough local anesthesia left I will proceed to do the sentinel lobe biopsy under sedation with local anesthesia. If this is not possible the patient wishes to have general anesthesia and had a sentinel node biopsy performed. Cc: Dr. Osullivan encounter 30 minutes, > 50% of time in planning and counselling Time with Patient: Greater than 30
== END | disposition home or self-care (01) ==
LOC: WWCWWP 11:58
PROVIDERS: ATTEND Surgery
DX: Z53.9 Procedure and treatment not carried out, unspecified reason (principal)

== ENCOUNTER → 2019-07-04 | Outpatient (CLI) | payer MEDICARE, BC ==
--- NOTE | 2019-07-04 12:57 | ECHOF ---
Referral Reason:R07.89 Chest pain MEASUREMENTS -------- HEIGHT: 160.0 cm WEIGHT: 47.2 kg BP: RVIDd: 2.6 cm (< 3.3) IVSd: 1.1 cm (0.6 - 1.1) LVIDd: 4.0 cm (3.9 - 5.3) LVPWd: 1.1 cm (0.6 - 1.1) IVSs: 1.2 cm LVIDs: 2.8 cm LVPWs: 1.7 cm LA Diam: 4.0 cm (2.7 - 3.8) LAESV Index (A-L): 29.88 ml/m Ao Diam: 2.9 cm (2.0 - 3.7) AV Cusp: 1.7 cm (1.5 - 2.6) LA Diam: 2.8 cm (2.7 - 3.8) MV EXCURSION: 20.564 mm (> 18.000) MV EF SLOPE: 153 mm/s (70 - 150) EPSS: 0.3 cm MV E Nolan: 0.75 m/s MV DecT: 203 ms MV A Nolan: 0.95 m/s MV E/A Ratio: 0.79 RAP: 5.00 mmHg RVSP: 45.45 mmHg FINDINGS -------- Sinus rhythm. This was a technically good study. The left ventricular size is normal. There is borderline concentric left ventricular hypertrophy. Overall left ventricular systolic function is normal with, an EF between 55 - 60 %. The right ventricle is normal in size. The left atrium is mildly dilated. LA is midly dilated 29-33ml/m2. The right atrial size is normal. There is mild aortic valve sclerosis. There is no evidence of aortic regurgitation. The mitral valve leaflets are mildly thickened. Mild mitral annular calcification present. Mild m itral regurgitation is present. [id number] tricuspid regurgitation present. There is no evidence of pulmonary hypertension. The right ventricular systolic pressure, as measured by Doppler, is 45.45mmHg. There is no pulmonic regurgitation present. The aortic root size is normal. The inferior vena cava is mildly dilated. There is no pericardial effusion. CONCLUSIONS -------- 1. Sinus rhythm. 2. This was a technically good study. 3. The left ventricular size is normal. 4. There is borderline concentric left ventricular hypertrophy. 5. Overall left ventricular systolic function is normal with, an EF between 55 - 60 %. 6. The right ventricle is normal in size. 7. The left atrium is mildly dilated. 8. LA is midly dilated 29-33ml/m2. 9. The right atrial size is normal. 10. There is mild aortic valve sclerosis. 11. The mitral valve leaflets are mildly thickened. 12. Mild mitral annular calcification present. 13. Mild mitral regurgitation is present. 14. [id number] tricuspid regurgitation present. 15. There is no evidence of pulmonary hypertension. 16. The right ventricular systolic pressure, as measured by Doppler, is 45.45mmHg. 17. There is no pulmonic regurgitation present. 18. The aortic root size is normal. 19. The inferior vena cava is mildly dilated. 20. There is no pericardial effusion. ATOMIC WELDER: Anahi Lopez RDCS
--- NOTE | 2019-07-04 13:25 | P.STRESS ---
- Stress Test Note Stress Test Results/Findings: Exam Performed: stress echo exercise Exam Date: 07/04/19 Reason for Exam: CHEST PAIN / PRE-OP Height: 5 ft 3 in Weight: 104 kg Protocol: AMY Stage: 2 Duration of Exercise: 4:15 Resting Heart Rate: 83 Resting Blood Pressure: 141/67 Maximum Achieved Heart Rate: 135 Maximum Achieved Blood Pressure: 210/81 85% PMHR: 132 100% PMHR: 155 METS: 5.8 Technologist Comment: Stress Test Results/Findings: This is a 64-year-old female with history of smoking and chest pain being evaluated as a preop procedure. Stress data: Baseline EKG showed multifocal atrial rhythm with a heart rate of about 83 and blood pressure 141/67. Patient walked on the Amy protocol for 4 minutes and 15 seconds achieving a maximum heart rate of 135. The blood pressure 210/81. EKGs continued to show nonspecific ST-T changes with more pronounced compared to the baseline, but not diagnostic. Echo data: Suboptimal studies. Based any echo images show normal wall motion and thickening. Exercise echo images did not reveal any evidence of ischemic changes. Final impression: #1. Nondiagnostic stress test because of baseline EKG changes #2 Suboptimal echo study but no evidence of any gross ischemic changes
== END | disposition home or self-care (01) ==
LOC: RADECHMAIN 08:08
PROVIDERS: ATTEND Family Medicine
DX: R07.89 Other chest pain (principal)
CPT/HCPCS: 93306; 93351

== ENCOUNTER → 2019-07-08 | Day surgery (SDC) | payer MEDICARE, BC ==
[2019-07-04 13:23] VITALS: BMI 18.4
[~2019-07-08] MED LIST changes: -DENOSUMAB 60 MG/ML 1 ML SYRINGE SQ ONE; +DEXAMETHASONE SOD PHOSPHATE 10 MG/ML 1 ML VIAL IV ONE; +GLYCOPYRROLATE 0.2 MG/ML 2 ML VIAL ONE; +HEPARIN SODIUM,PORCINE 5,000 UNIT/ML 1 ML VIAL SQ ONE; +HYDROmorphone 0.5 MG/0.5 ML SYRINGE IVP PRN; +KETAMINE 10 MG/ML 20 ML VIAL ONE; +LACTATED RINGERS 1,000 ML IV SCH; +LIDOCAINE 0.5%-EPI 1:200,000 50 ML VIAL SQ ONE; +LIDOCAINE 1% 20 ML VIAL (10MG/ML) FOR IV START INTRADERMA ONE; +MIDAZOLAM 2 MG/2 ML VIAL IV ONE; +MIDAZOLAM 2 MG/2 ML VIAL IV PRN; +MIDAZOLAM 2 MG/2 ML VIAL ONE; +ONDANSETRON 4 MG/2 ML VIAL IVP ONE; +PROPOFOL 10 MG/ML 20 ML VIAL IV ONE; +Pre Op ABX Message 1 EACH MISC MISCELLANE ONE; +fentaNYL (PF) 50 MCG/ML 2 ML AMP ONE
--- NOTE | 2019-07-08 13:53 | P.NAPBC ---
NAPBC Queries - NAPBC Queries Was patient's case review presented at [facility] tumor board? If no, comment.: Yes Was patient's pathology reviewed at [facility]? If no, comment.: Yes Was breast conservation surgery offered? If no, comment.: Yes Was sentinel node biopsy offered? If no, comment.: Yes (must be done under local so may not be able to proceed) Was diagnosis confirmed by percutaneous core biopsy? If no, comment.: Yes Is patient mastectomy patient?: No Was a preop referral to reconstructive surgeon offered?: No Clinical Stage: Stage IA
--- NOTE | 2019-07-08 14:33 | NM ---
EXAMINATION TYPE: NM sentinel node injection DATE OF EXAM: 07/08/2019 COMPARISON: NONE HISTORY: 64 year-old female history of left breast cancer TECHNIQUE AND FINDINGS: The procedure of sentinel lymph node injection was explained to the patient. The benefits, alternatives, and risks were discussed. An informed consent was then obtained. Overlying skin is cleaned with sterile alcohol. Following this, 549 uCi Tc 99m Tilmanocept was inject ed surrounding the outer aspect of the left nipple intradermally. The patient tolerated the procedure well without any immediate complication. The patient was kept in the preop department for short stay after the procedure and then taken to surgery for surgical proce dure what is presumed intraoperative gamma probe will be used for sentinel lymph node detection. IMPRESSION: Left breast radiotracer injection for sentinel node localization as above.
--- NOTE | 2019-07-08 16:10 | P.OP ---
Date of Procedure: 07/08/19 Preoperative Diagnosis: Left breast invasive ductal carcinoma Postoperative Diagnosis: Same Procedure(s) Performed: Left breast lumpectomy, sentinel node biopsy Anesthesia: MAC, local Surgeon: Anabell Otero Estimated Blood Loss (ml): 5 IV fluids (ml): 300 Pathology: other (breast tissue, sentinal node) Condition: stable Disposition: same day Indications for Procedure: left breast invasive ductal cancer Operative Findings: left breast cancer Description of Procedure: Pauline is a 64-year-old white female with severe COPD. She was noted to have a palpable mass in her left breast and core biopsy revealed this to be invasive ductal carcinoma. Was at the 4 o'clock position of the left breast. Ultrasound of the axilla did not reveal any adenopathy of concern was any palpable noted. The patient however was very adamant that she wished sentinel node to be sampled if at all possible. Preoperatively she was cleared to have the procedure performed under local anesthetic with sedation. She was not cleared for general anesthesia. The patient was taken to the operating room and the area of the breast cancer was approached initially. Quarter strength lidocaine with epinephrine was used to anesthetize the area of concern. Wide excision of the palpable abnormality was performed using electrocautery device. Anteriorly skin was removed. Posteriorly dissection was on the pectoralis muscle. The specimen was removed and radiograph revealed the area of concern about removed. It was painted for orientation. The specimen was sent for pathologic evaluation and and sectioning revealed that the superior margin was close and additional tissue was taken superiorly. This was painted black on the external surface. The cavity was marked with titanium clips. Deep tissues were closed with 3-0 Vicryl. The skin was closed with 4-0 Monocryl. It was felt that there was enough local anesthetic available to proceed with a sentinel node biopsy. The neoprobe was used to identify the area still greatest radioactivity in the axilla. Quarter percent lidocaine with epinephrine was used to anesthetize the area. An incision was made and carried down to the axillary contents. The neoprobe revealed an area of high radioactivity and this was grasped with an Allis clamp. The specimen was removed and hemostasis was attained using electrocautery device. Evaluation of the specimen revealed a 10 second count was 11,050. The 10 second background count was 50. It was felt that the motor vehicle representative sentinel node had been identified and removed. The wound was examined for hemostasis. After assured that hemostasis was attained deep tissues were closed using 3-0 Vicryl suture. The skin was closed with 4-0 Monocryl in a running nylon suture. The patient tolerated the procedure in stable condition. All instrument and sponge counts were correct at the end of the case.
--- NOTE | 2019-07-08 16:12 | P.DS ---
Providers Attending physician: Anabell Otero Primary care physician: Jaxon Osullivan Plan - Discharge Summary Discharge Rx Participant: Yes New Discharge Prescriptions: No Action Pantoprazole Sodium [Protonix] 40 mg PO QAM Hydroxychloroquine Sulfate [Plaquenil] 200 mg PO QAM Fluticasone/Salmeterol [Advair 500-50 Diskus] 1 puff INHALATION RT-DAILY Gabapentin [Neurontin] 300 mg PO BID Levalbuterol Hfa Inhaler [Xopenex Hfa Inhaler] 1 puff INHALATION RT-DAILY PRN PRN Reason: Shortness Of Breath Tiotropium 18 Mcg/Puff [Spiriva] 1 puff INHALATION RT-BID buPROPion HCL [Wellbutrin XL] 300 mg PO BID Calcium Carbonate [Calcium] 1,200 mg PO DAILY Famotidine [Pepcid] 20 mg PO QAM Cholecalciferol (Vitamin D3) [Vitamin D3] 2,000 unit PO QAM Bisacodyl [Dulcolax] 5 mg PO QAM Denosumab [Prolia] 60 mg SQ Q180D Discharge Medication List Hydroxychloroquine Sulfate [Plaquenil] 200 mg PO QAM 03/29/15 [History] Pantoprazole Sodium [Protonix] 40 mg PO QAM 03/29/15 [History] Fluticasone/Salmeterol [Advair 500-50 Diskus] 1 puff INHALATION RT-DAILY 05/31/16 [History] Gabapentin [Neurontin] 300 mg PO BID 04/07/19 [History] Levalbuterol Hfa Inhaler [Xopenex Hfa Inhaler] 1 puff INHALATION RT-DAILY PRN 04/07/19 [History] Tiotropium 18 Mcg/Puff [Spiriva] 1 puff INHALATION RT-BID 04/07/19 [History] buPROPion HCL [Wellbutrin XL] 300 mg PO BID 04/07/19 [History] Calcium Carbonate [Calcium] 1,200 mg PO DAILY 04/29/19 [History] Bisacodyl [Dulcolax] 5 mg PO QAM 05/23/19 [History] Cholecalciferol (Vitamin D3) [Vitamin D3] 2,000 unit PO QAM 05/23/19 [History] Famotidine [Pepcid] 20 mg PO QAM 05/23/19 [History] Denosumab [Prolia] 60 mg SQ Q180D 06/05/19 [History] Follow up Appointment(s)/Referral(s): Anabell Otero MD [STAFF PHYSICIAN] - 1-2 Days Activity/Diet/Wound Care/Special Instructions: do not drive for 24 hours after discharge wear johnny wrap at all times call if anything of concern may shower after 48 hours Discharge Disposition: HOME SELF-CARE
[2019-07-08 16:18] VITALS: TEMP 97.3
[2019-07-08 17:02] VITALS: RESP 16
--- NOTE | 2019-07-08 17:27 | MM ---
Report Text: Image demonstrating a palpation guided excisional specimen of biopsy-proven left breast cancer. Micro clip and mass are present within the specimen. Specimen margins hug 3 sides of the mass.
[2019-07-08 17:41] VITALS: BP 117/56; PULSE 87
== END | disposition home or self-care (01) ==
LOC: OR 10:22
PROVIDERS: ATTEND Surgery
DX: C50.912 Malignant neoplasm of unspecified site of left female breast (principal); J43.9 Emphysema, unspecified; K21.9 Gastro-esophageal reflux disease without esophagitis; M19.90 Unspecified osteoarthritis, unspecified site; M35.00 Sjogren syndrome, unspecified; Z88.0 Allergy status to penicillin; Z88.1 Allergy status to other antibiotic agents; Z88.8 Allergy status to other drugs, medicaments and biological substances; Z91.041 Radiographic dye allergy status; Z87.891 Personal history of nicotine dependence; Z79.51 Long term (current) use of inhaled steroids; Z79.899 Other long term (current) drug therapy; Z90.710 Acquired absence of both cervix and uterus; Z90.49 Acquired absence of other specified parts of digestive tract; Z87.01 Personal history of pneumonia (recurrent); Z80.3 Family history of malignant neoplasm of breast; Z80.1 Family history of malignant neoplasm of trachea, bronchus and lung
CPT/HCPCS: 88342; 88307; 88341; 76098; 38792; 19301; 38525; A9520; J2250; J1644; J1100; J2405; J3010; J2704

== ENCOUNTER → 2019-10-23 | Outpatient (CLI) | payer MEDICARE, BC ==
[2019-10-23 14:50] VITALS: BP 127/80; PULSE 79; RESP 20; TEMP 98.2
--- NOTE | 2019-10-23 15:07 | P.PN ---
Subjective Progress Note Date: 10/23/19 Principal diagnosis: [id number]+/KS+ Hers- G2 left breast cancer Pauline is a 64-year-old white female status post a left breast lumpectomy and sentinel node biopsy on 24morning. The pathology revealed the sentinel lymph node was negative for metastatic disease. Margins were all negative for invasive cancer. She is doing well at this time with no complaints. She did undergo 15 treatments of radiation therapy. She did have some complications with the raditaion related to skin burning. This has resolved. She is presently on letrazole. Objective - Vital Signs Vital signs: Vital Signs Temp 98.2 F 10/23/19 14:44 Pulse 79 10/23/19 14:44 Resp 20 10/23/19 14:44 BP 127/80 10/23/19 14:44 Pulse Ox 94 L 10/23/19 14:44 Intake & Output 10/22/19 10/23/19 10/23/19 18:59 06:59 18:59 Weight 48.534 kg - Exam BMI 19 - Constitutional General appearance: Present: thin - EENT Eyes: Present: EOMI ENT: Present: hearing grossly normal - Neck Neck: Present: normal ROM - Respiratory Respiratory: bilateral: CTA - Cardiovascular Rhythm: regular Heart sounds: normal: S1, S2 - Gastrointestinal General gastrointestinal: Present: soft - Musculoskeletal Musculoskeletal: Present: gait normal - Psychiatric Psychiatric: Present: A&O x's 3, appropriate affect, intact judgment & insight - Additional findings Additional findings: breast exam: BRA 34A inspection: mild radiation changes left breast , well healed scars left breast Palpation: Right breast: Multi-positional exam no dominant masses or nodules of concern Right axilla: No adenopathy of concern Left breast: Well-healed scar from prior surgery, radiation changes no dominant masses or nodules of concern Left axilla: No adenopathy of concern incision clean and dry and well-healed Assessment and Plan Assessment: Impression: Left breast stage IA breast cancer status post lumpectomy July 2019 No evidence of recurrent or metastatic breast cancer COPD/stable Sjogrens syndrome Reflux Osteoarthritis Plan: 1. Patient continue to follow with medical oncology/on letrazole 2. follow up here in three months 3. follow up with radiation oncology 4. Mammogram of left breast adnexa appointment prior to visit CC: DR. Ayana Osullivan encounter 15 minutes, > 50% of time in planing and counselling Time with Patient: Less than 30
== END | disposition home or self-care (01) ==
LOC: WWCWWP 14:37
PROVIDERS: ATTEND Surgery
DX: Z53.9 Procedure and treatment not carried out, unspecified reason (principal)

== ENCOUNTER → 2019-10-30 | Outpatient (CLI) | payer MEDICARE, BC ==
[~2019-10-30] MED LIST changes: +DENOSUMAB 60 MG/ML 1 ML SYRINGE SQ NR; -DEXAMETHASONE SOD PHOSPHATE 10 MG/ML 1 ML VIAL IV ONE; -GLYCOPYRROLATE 0.2 MG/ML 2 ML VIAL ONE; -HEPARIN SODIUM,PORCINE 5,000 UNIT/ML 1 ML VIAL SQ ONE; -HYDROmorphone 0.5 MG/0.5 ML SYRINGE IVP PRN; -KETAMINE 10 MG/ML 20 ML VIAL ONE; -LACTATED RINGERS 1,000 ML IV SCH; -LIDOCAINE 0.5%-EPI 1:200,000 50 ML VIAL SQ ONE; -LIDOCAINE 1% 20 ML VIAL (10MG/ML) FOR IV START INTRADERMA ONE; -MIDAZOLAM 2 MG/2 ML VIAL IV ONE; -MIDAZOLAM 2 MG/2 ML VIAL IV PRN; -MIDAZOLAM 2 MG/2 ML VIAL ONE; -ONDANSETRON 4 MG/2 ML VIAL IVP ONE; -PROPOFOL 10 MG/ML 20 ML VIAL IV ONE; -Pre Op ABX Message 1 EACH MISC MISCELLANE ONE; -fentaNYL (PF) 50 MCG/ML 2 ML AMP ONE
[2019-10-30 09:43] VITALS: BP 133/84; PULSE 85; RESP 16; TEMP 97.4
== END | disposition home or self-care (01) ==
LOC: PROCWHC3 09:29
PROVIDERS: ATTEND Family Medicine
DX: M81.0 Age-related osteoporosis without current pathological fracture (principal)
CPT/HCPCS: 96372; J0897

== ENCOUNTER → 2019-12-09 | Outpatient (CLI) | payer MEDICARE, BC ==
--- NOTE | 2019-12-09 17:38 | CONS ---
CONSULTATION REASON FOR CONSULTATION: Sleep apnea. This patient is a 64-year-old female patient with known history of COPD presenting for sleep apnea evaluation. It was noted that the patient was having difficulties with her sleep, and excessive tiredness and sleepiness during the day has also been reported by the patient. She has snoring. She is unable to sleep on her back. She sleeps on her side. While on her back her sleep becomes quite fragmented. She wakes up with a dry mouth and she occasionally wakes up gasping for air. She goes to bed around 11 p.m., wakes up at 4 to 5 a.m. in the morning. She averages around 5 to 6 hours of sleep. She wakes up probably once or twice in the middle of the night to urinate. Her weight has been down, and she has gradually been losing weight over the past 5 years; probably this is related to attributes of her COPD. She does not have any sleep paralysis, hallucinations or cataplexy. However, she has restlessness in her legs where the legs keep on moving and she has to put them across each other and drop them to get some relief. As mentioned earlier, her [place] score is 14. PAST MEDICAL HISTORY: 1. COPD. 2. History of breast cancer with recent surgical resection. 3. Sjogren's disease. PAST SURGICAL HISTORY: Past surgical history includes breast surgery, cholecystectomy, hysterectomy and cardiac catheterization. DRUG ALLERGIES: IV DYE; that gives her an anaphylactic reaction. She is also ALLERGIC TO CODEINE and PULMICORT and VERAPAMIL. She is ALLERGIC TO PENICILLIN that gives her rash. In terms of food material, she is ALLERGIC TO BANANA. SOCIAL HISTORY: The patient is an ex-smoker. She quit smoking in 2016. She carries around a 40 pack- year smoking history. No history of alcoholism. No history of IV drugs. FAMILY HISTORY: Positive for lung cancer in her father, who . Her mother of heart disease. REVIEW OF SYSTEMS: Fourteen-point review of system was done. Positive findings are all mentioned in the history of present illness. No anxiety. No depression. No sleeptalking. No active grinding for now of the teeth. No depression. She has some degree of anxiety. She wakes up tired in the morning and she has difficulty with concentration. She drinks a cup of coffee. No history of substance abuse. No history of alcoholism. PHYSICAL EXAMINATION: VITAL SIGNS: BP is 141/59, pulse 82, respirations 16, temperature 98.2, saturation 91% on room air. Height is 5 feet 2 inches, weight is 102 and BMI is 18.3. Neck size is 11- 1/2 inches. GENERAL APPEARANCE: Calm, comfortable. HEAD: Atraumatic, normocephalic. NECK: Supple. No JVD. No goiter or neck masses. Mallampati class IV with a significant overbite on examination and some gnathia. LUNGS: Clear to auscultation. Diminished breath sounds along with a few scattered expiratory wheezes. HEART: Heart sounds are regular rate and rhythm. Normal S1, S2. No S3, S4. No murmurs. ABDOMEN: Soft, nontender. EXTREMITIES: No edema. No cyanosis or clubbing. NEUROLOGIC: Awake and alert. There is no focal neurological deficit. IMPRESSION: 1. Hypersomnia; [place] score of 14. 2. Loud snoring. 3. Overbite with significant crowding of posterior pharynx, Mallampati class IV. 4. History of breast cancer. 5. History of Sjogren's disease. 6. Chronic hypoxic respiratory failure; room-air pulse ox around 91%. PLAN: Proceed with a screening polysomnogram. The patient is not obese. She has a BMI of 18.3. Nevertheless, she is at anatomic disadvantage where she has significant overbite with significant crowding in the posterior pharynx and Mallampati class IV. It is possible that she has a significant obstructive sleep apnea and that we may be able to help her with CPAP therapy. For that reason, a polysomnogram will be ordered on this patient, and further recommendations are to follow. MMODL / IJN: [id number] /
== END | disposition home or self-care (01) ==
LOC: SLEEP 14:21
PROVIDERS: ATTEND Internal Medicine Critical Care Medicine
DX: G47.10 Hypersomnia, unspecified (principal); J96.11 Chronic respiratory failure with hypoxia; M26.29 Other anomalies of dental arch relationship; J44.9 Chronic obstructive pulmonary disease, unspecified; Z85.3 Personal history of malignant neoplasm of breast; Z86.2 Personal history of diseases of the blood and blood-forming organs and certain disorders involving the immune mechanism; Z87.891 Personal history of nicotine dependence; Z91.041 Radiographic dye allergy status; Z88.5 Allergy status to narcotic agent; Z79.51 Long term (current) use of inhaled steroids; Z88.0 Allergy status to penicillin; Z91.018 Allergy to other foods; Z79.899 Other long term (current) drug therapy
CPT/HCPCS: 99211

== ENCOUNTER → 2020-01-13 | Outpatient (CLI) | payer MEDICARE, BC | END | disposition home or self-care (01) | LOC: LABWHC1 08:38 | PROVIDERS: ATTEND Family Medicine | DX: Z20.828 Contact with and (suspected) exposure to other viral communicable diseases (principal) | CPT/HCPCS: U0003; C9803 ==

== ENCOUNTER → 2020-05-03 | Outpatient (CLI) | payer MEDICARE, BC ==
[~2020-05-03] MED LIST changes: -DENOSUMAB 60 MG/ML 1 ML SYRINGE SQ NR; +DENOSUMAB 60 MG/ML 1 ML SYRINGE SQ ONE
[2020-05-03 10:27] VITALS: BP 151/59; PULSE 95; RESP 18; TEMP 97.8
== END | disposition home or self-care (01) ==
LOC: PROCWHC3 10:22
PROVIDERS: ATTEND Family Medicine
DX: M81.0 Age-related osteoporosis without current pathological fracture (principal)
CPT/HCPCS: 96372; J0897

== ENCOUNTER → 2020-06-24 | Outpatient (CLI) | payer MEDICARE, BC ==
--- NOTE | 2020-06-25 10:02 | MM ---
Reason for exam: additional evaluation requested from prior study. Last mammogram was performed 2 years and 6 months ago. History: Patient is postmenopausal. Family history of breast cancer in mother at age 56. Lumpectomy of the left breast, 2019. Radiation therapy of the left breast, 2019. Taking antineoplastic beginning at age 64. Physical Findings: Nurse did not find any significant physical abnormalities on exam. MG 3D Diag Mammo W/Cad ELLIE Bilateral CC and MLO view(s) were taken. LM view(s) were taken of the left breast. Prior study comparison: December 26, 2017, mammogram. The breast tissue is heterogeneously dense. This may lower the sensitivity of mammography. Scattered benign fat necrosis calcifications. Vascular calcifications on the right. Post surgical and post therapy change left breast. These results were verbally communicated with the patient and result sheet given to the patient on 06/24/20. ASSESSMENT: Benign, BI-RAD 2 RECOMMENDATION: Follow-up diagnostic mammogram of both breasts in 1 year.
== END | disposition home or self-care (01) ==
LOC: RADMAMWWP 14:20
PROVIDERS: ATTEND Radiology Radiation Oncology
DX: C50.512 Malignant neoplasm of lower-outer quadrant of left female breast (principal); Z92.3 Personal history of irradiation; Z98.890 Other specified postprocedural states; Z17.0 Estrogen receptor positive status [ER+]
CPT/HCPCS: 77066; G0279; 77062

== ENCOUNTER → 2020-07-01 | Outpatient (CLI) | payer MEDICARE, BC ==
[2020-07-01 13:54] VITALS: BP 158/60; PULSE 82; RESP 20; TEMP 98
--- NOTE | 2020-07-01 14:37 | P.PN ---
Subjective Progress Note Date: 07/01/20 Principal diagnosis: stage IA left breast cancer Franca is a 65-year-old white female seen in consultation for Dr. Osullivan regarding left breast invasive ductal carcinoma. The patient states that approximately 2 days prior to a routine mammogram which was performed on she noted a nodule in her left breast. The mammogram showed a faintly visualized rounded area measuring approximately 1 cm on the mediolateral oblique view of the left breast. Nothing was described of concern in the right breast. An ultrasound was then performed. The ultrasound revealed a 1.1 cm rounded mass at the area of the palpable abnormality. Ultrasound core biopsy was performed. Ultrasound core biopsy revealed a grade 2 ER positive GA positive HER-2/surjit equivocal invasive ductal carcinoma. The patient does not feel any other masses or lumps in her breasts. She does not have any nipple discharge of concern. No skin changes. No history of any recent trauma or infection of the breast. Patient has had a prior left breast biopsy which was benign. She underwent a left breast lumpectomy and sentinel node biopsy on 2419. All margins were negative. The lymph node was negative. She is presently taking anastrozole. She did not have any chemotherapy. She did not have any chem otherapy. Not having any side effects with the anastrozole that she is concerned about. She has not noted any lumps masses or nodules in her breasts for which she is concerned. Bilateral mammogram on . This was benign BIRADS 2. Family history: mother: breast cancer in 50's maternal grandmother: of breast cancer, in her 40's father: lung cancer maternal cousin: breast cancer Hormonal history: menarche: 11 breast fed: no, age at : 19 menopause: 49 BCP: 1 years hormones: none Surgical history: 1. Hysterectomy; did not take the ovaries; done secondary to pain 2. Cholecystectomy 3. TMJ 4. Cyst removed from left side of neck Medical History: 1. COPD 2. sojorns syndrome 3. reflux 4. Osteoarthritis/severe back fracture 3 times as well as pelvic fracture Social History: Smoke: Stopped approximately 3 years ago, 1 pack per day for 45 years Alcohol: Negative Drugs: Negative - Constitutional Constitutional: Denies chills, Denies fever - EENT Eyes: denies blurred vision, denies pain Ears: deny: decreased hearing, tinnitus Ears, nose, mouth and throat: Denies headache, Denies sore throat - Breasts Breasts: bilateral: as per HPI - Cardiovascular Cardiovascular: Reports shortness of breath - Respiratory Comment: COPD - Gastrointestinal Gastrointestinal: Denies abdominal pain, Denies diarrhea, Denies nausea, Denies vomiting - Genitourinary (Female) Genitourinary: Denies dysuria, Denies hematuria - Menstruation Menstruation: Reports post hysterectomy - Musculoskeletal Comment: severe osteoarthritis - Integumentary Integumentary: Denies pruritus, Denies rash - Neurological Neurological: Denies numbness, Denies weakness - Psychiatric Psychiatric: Denies anxiety, Denies depression - Endocrine Comment: weight loss unsure why, 25 pound loss over past year Endocrine: Reports weight change, Denies fatigue - Hematologic/Lymphatic Comment: none - Allergic/Immunologic Allergic/Immunologic: Reports as per HPI Objective - Vital Signs Vital signs: Vital Signs Temp 98.0 F 07/01/20 13:49 Pulse 82 07/01/20 13:49 Resp 20 07/01/20 13:49 BP 158/60 07/01/20 13:49 Pulse Ox 98 07/01/20 13:49 Intake & Output 06/30/20 07/01/20 07/01/20 18:59 06:59 18:59 Weight 48.081 kg - Exam 18.8 - Constitutional General appearance: Present: thin - EENT Eyes: Present: EOMI ENT: Present: hearing grossly normal - Neck Neck: Present: normal ROM - Respiratory Details: oxygen dependant, slight decreased breath sounds at the bases - Cardiovascular Rhythm: regular Heart sounds: normal: S1, S2 - Gastrointestinal General gastrointestinal: Present: soft - Integumentary Integumentary: Present: normal turgor - Musculoskeletal Musculoskeletal: Present: gait normal - Psychiatric Psychiatric: Present: A&O x's 3 - Additional findings Additional findings: Breast exam: BRA 34A inspection: Well-healed scar from prior lumpectomy Palpation: Right breast: Multi-positional exam no dominant masses or nodules of concern, fibrocystic changes Axilla: No adenopathy of concern Left breast: Radiation changes, well-healed scar from prior surgery no dominant masses or nodules of concern Left axilla: No adenopathy of concern Assessment and Plan Assessment: Impression: 1. Stage IA left breast cancer no evidence of recurrent disease 2. Patient presently on anastrozole 3. Oxygen dependent COPD 4. Surgeon syndrome 5. Reflux 6. Osteoarthritis Plan: 1. Follow up here in 6 months time 2. Follow-up medical oncology 3. Follow-up radiation oncology 4. bilateral mammogram in 1 year CC: Dr. Osullivan, DR. De La Cruz encounter 20 minutes, time spent in reviewing medical records, physical examination, and counselling
== END | disposition home or self-care (01) ==
LOC: WWCWWP 13:34
PROVIDERS: ATTEND Surgery
DX: Z53.9 Procedure and treatment not carried out, unspecified reason (principal)

== ENCOUNTER → 2020-07-30 | Outpatient (CLI) | payer MEDICARE, BC ==
--- NOTE | 2020-07-30 17:11 | BD ---
EXAMINATION TYPE: Axial Bone Density DATE OF EXAM: 07/30/2020 COMPARISON: NONE CLINICAL HISTORY: 65 YR OLD FEMALE....ICD-10 CODE: M81.0 AGE RELATED OSTEOPOROSIS Height: 61.2 Weight: 105 FRAX RISK QUESTIONS: Glucocorticoids (More than 3mos): YES (Ex: prednisone, prednisolone, methylprednisolone, dexamethasone, and hydrocortisone). History of Fracture in Adulthood: YES Secondary Osteoporosis: YES 3. Menopause before 45: YES Current Tobacco Use: NOT NOW RISK FACTORS HISTORY OF: PELVIS FX, BOTH ANKLES AND THORACIC SPINE AN ADULT Family History of Osteoporosis: YES, MOTHER WITH OUT HIP FX Active: NO, PT ON O2, CANNOT BREATHE WITHOUT Postmenopausal woman: YES, AT 37 YRS OLD, HYSTERECTOMY Poor Health: YES Hyperparathyroidism: UNSURE Adrenal Insufficiency: UNSURE MEDICATIONS: Prednisone or other steroids: STEROIDS FOR COPD..X3 TYPES, PLUS PORTABLE O2, FOR MANY YRS OSTEOPOROSIS MEDS, PROLIA EVERY 6 MOS FOR ABOUT 3 YRS Additional Medications: FEMARA FOR LT BREAST CANCER, HX OF RADIATION, BP MEDS, WELLBUTRIN, STATIN FO R CHOLESTEROL, VIT D3 AND CALCIUM, PROLIA EVERY 6 MONTHS FOR ABOUT 3 YRS Additional History: OSTEOPOROSIS, HX OF LT BREAST CANCER, HYPERTENSION, CHOLESTEROL, SHOGREN DISEASE EXAM MEASUREMENTS: Bone mineral densitometry was performed using the [employer]. Bone mineral density as measured about the Lumbar spine is: ----- L1-L4(G/cm2): 1.149 T Score Values are as follows: ----- L1: -1.0 ----- L2: -0.3 ----- L3: 0.1 ----- L4: -0.2 ----- L1-L4: -0.3 Bone mineral density FIRST DEXA SCAN AT [facility] Bone mineral density about the R hip (g/cm2): 0.609 Bone mineral density about the L hip (g/cm2): 0617 T Score values are as follows: -----R Neck: -2.9 -----L Neck: -2.3 -----R Total: -3.2 -----L Total: -3.1 Bone mineral density FIRST DEXA AT [facility] FRAX%s: THERE IS A 64.8% CHANCE FOR A MAJOR OSTEOPOROTIC FX AND A 12.5% FOR HIP.....PROBABILITY FO R FX IN 10 YRS TIME IMPRESSION: Osteoporosis (T Score less than -2.5). There is increased fracture risk and therapy is usually indicated based on age. Re-Screen 1-2 years. NOTE: T-SCORE=SD OF THE YOUNG ADULT MEAN.
== END | disposition home or self-care (01) ==
LOC: RADBDWWP 09:53
PROVIDERS: ATTEND Family Medicine
DX: M81.0 Age-related osteoporosis without current pathological fracture (principal)
CPT/HCPCS: 77080

== ENCOUNTER → 2020-10-14 | Outpatient (CLI) | payer MEDICARE, BC ==
[2020-10-14 12:04] VITALS: BP 135/66; PULSE 88; RESP 20; TEMP 98.1
--- NOTE | 2020-10-14 12:28 | P.PN ---
Subjective Progress Note Date: 10/14/20 Principal diagnosis: stage IA left breast cancer stage IA left breast cancer Franca is a 65-year-old white female who was seen in consultation for Dr. Osullivan regarding left breast invasive ductal carcinoma. The patient states that approximately 2 days prior to a routine mammogram which was performed on she noted a nodule in her left breast. The mammogram showed a faintly visualized rounded area measuring approximately 1 cm on the mediolateral oblique view of the left breast. Nothing was described of concern in the right breast. An ultrasound was then performed. The ultrasound revealed a 1.1 cm rounded mass at the area of the palpable abnormality. Ultrasound core biopsy was performed. Ultrasound core biopsy revealed a grade 2 ER positive TN positive HER-2/surjit equivocal invasive ductal carcinoma. The patient does not feel any other masses or lumps in her breasts. She does not have any nipple discharge of concern. No skin changes. No history of any recent trauma or infection of the breast. Patient has had a prior left breast biopsy which was benign. She underwent a left breast lumpectomy and sentinel node biopsy on 2419. All margins were negative. The lymph node was negative. She did have radiation therapy for 4 weeks. She is presently taking anastrozole. She did not have any chemotherapy. She is not having any side effects with the anastrozole that she is concerned about. She has not noted any newe lumps masses or nodules in her breasts for which she is concerned. She was last seen on 07-01-20. Her left breast got swollen two weeks after her second Madurna COVID injection. The patient states after the first injection she got a very sore arm, and after the second injection she did not feel anything however 2 weeks later the left breast became very swollen. The swelling has since gone down but she continues to have persistent discomfort in the left breast. She did not have any fever or chills. The pain is described as an aching sensation in the inner aspect of her breast. It does not spread any place. She does follow with Dr. Gama. Bilateral mammogram on . This was benign BIRADS 2. Family history: mother: breast cancer in 50's maternal grandmother: of breast cancer, in her 40's father: lung cancer maternal cousin: breast cancer Hormonal history: menarche: 11 breast fed: no, age at : 19 menopause: 49 BCP: 1 years hormones: none Surgical history: 1. Hysterectomy; did not take the ovaries; done secondary to pain 2. Cholecystectomy 3. TMJ 4. Cyst removed from left side of neck Medical History: 1. COPD 2. sojorns syndrome 3. reflux 4. Osteoarthritis/severe back fracture 3 times as well as pelvic fracture Social History: Smoke: Stopped approximately 3 years ago, 1 pack per day for 45 years Alcohol: Negative Drugs: Negative - Constitutional Constitutional: Denies chills, Denies fever - EENT Eyes: denies blurred vision, denies pain Ears: deny: decreased hearing, tinnitus Ears, nose, mouth and throat: Denies headache, Denies sore throat - Breasts Breasts: bilateral: as per HPI - Cardiovascular Cardiovascular: Reports shortness of breath - Respiratory Comment: COPD - Gastrointestinal Gastrointestinal: Denies abdominal pain, Denies diarrhea, Denies nausea, Denies vomiting - Genitourinary (Female) Genitourinary: Denies dysuria, Denies hematuria - Menstruation Menstruation: Reports post hysterectomy - Musculoskeletal Comment: severe osteoarthritis - Integumentary Integumentary: Denies pruritus, Denies rash - Neurological Neurological: Denies numbness, Denies weakness - Psychiatric Psychiatric: Denies anxiety, Denies depression - Endocrine Comment: weight loss unsure why, 25 pound loss over past year Endocrine: Reports weight change, Denies fatigue - Hematologic/Lymphatic Comment: none - Allergic/Immunologic Allergic/Immunologic: Reports as per HPI Objective - Vital Signs Vital signs: Vital Signs Temp 98.1 F 10/14/20 12:00 Pulse 88 10/14/20 12:00 Resp 20 10/14/20 12:00 BP 135/66 10/14/20 12:00 Pulse Ox 97 10/14/20 12:00 Intake & Output 10/13/20 10/14/20 10/14/20 18:59 06:59 18:59 Weight 48.988 kg - Exam BMI 19.1 - Constitutional General appearance: Present: cooperative - EENT Eyes: Present: EOMI ENT: Present: hearing grossly normal - Neck Neck: Present: normal ROM - Respiratory Details: decreased breath sounds at the bases, oxygen dependant - Cardiovascular Heart sounds: normal: S1, S2 - Gastrointestinal General gastrointestinal: Present: soft - Integumentary Integumentary Comment(s): skin changes left breast related to radiation Integumentary: Present: normal turgor - Musculoskeletal Musculoskeletal: Present: gait normal - Psychiatric Psychiatric: Present: A&O x's 3, appropriate affect, intact judgment & insight - Additional findings Additional findings: breast exam: Prior: 30 4A Inspection: Grade 2 ptosis bilateral Palpation: Right breast: Multiple positional exam no dominant masses or nodules of concern Right axilla: Shoddy adenopathy Left breast: appears to be somewhat swollen, radiation changes and postsurgical scar no dominant masses or nodules of concern Left axilla: Shoddy adenopathy Assessment and Plan Assessment: Impression: 1. COPD 2. sojorns syndrome 3. reflux 4. Osteoarthritis/severe back fracture 3 times as well as pelvic fracture 5. Patient status post left breast lumpectomy and sentinel node biopsy and radiation therapy for a stage IA left breast cancer 6. Recent COVID vaccination in the left arm 7. Swelling left breast which is reduced but persistent pain Plan: 1. Follow-up with cardiology to rule out any cardiac cause for the left breast is comfort 2. No evidence at this time of any infection in the breast or recurrent cancer will consider ultrasound of the left breast to reevaluate 3. Close surveillance 4. Follow up in one month Cc: Dr. Osullivan Encounter 25 minutes, time spent and physical examination, reviewing tests, and counseling.
== END ==
LOC: WWCWWP 11:53
PROVIDERS: ATTEND Surgery
DX: N64.4 Mastodynia (principal); J44.9 Chronic obstructive pulmonary disease, unspecified; M35.00 Sjogren syndrome, unspecified; M19.90 Unspecified osteoarthritis, unspecified site; K21.9 Gastro-esophageal reflux disease without esophagitis; Z85.3 Personal history of malignant neoplasm of breast; Z92.3 Personal history of irradiation; Z98.890 Other specified postprocedural states; Z87.891 Personal history of nicotine dependence; Z87.81 Personal history of (healed) traumatic fracture; Z91.018 Allergy to other foods; Z91.041 Radiographic dye allergy status; Z88.0 Allergy status to penicillin; Z88.1 Allergy status to other antibiotic agents; Z88.8 Allergy status to other drugs, medicaments and biological substances; Z79.51 Long term (current) use of inhaled steroids; Z79.899 Other long term (current) drug therapy; Z79.82 Long term (current) use of aspirin

== ENCOUNTER → 2020-10-28 | Outpatient (CLI) | payer MEDICARE, BC ==
--- NOTE | 2020-10-28 08:17 | USB ---
Reason for exam: clinical finding. History: Patient is postmenopausal. Family history of breast cancer in mother at age 56. Lumpectomy of the left breast, 2019. Radiation therapy of the left breast, 2020. Taking antineoplastic beginning at age 64. Indicated problem(s): lump or thickening, large axillary lymph nodes, and other indicated problem in the left breast. Physical Findings: Nurse Summary: edema and pain (nurse dw). US Breast Limited LT Left limited breast ultrasound including focal area of concern, retroareolar and axilla demonstrates no cystic or solid lesion seen. No sonographic finding left axillary and left superior breast at pain and decreased swelling. These results were verbally communicated with the patient and result sheet given to the patient on 10/28/20. ASSESSMENT: Probably benign, BI-RAD 3 RECOMMENDATION: Follow-up diagnostic mammogram of the left breast in 6 months. Manage patient on a clinical basis.
== END | disposition home or self-care (01) ==
LOC: RADUSWWP 07:15
PROVIDERS: ATTEND Surgery
DX: N64.59 Other signs and symptoms in breast (principal); Z78.0 Asymptomatic menopausal state; Z80.3 Family history of malignant neoplasm of breast

== ENCOUNTER → 2020-11-04 | Outpatient (CLI) | payer MEDICARE, BC ==
[2020-11-04 15:53] VITALS: BP 149/68; PULSE 64; RESP 16; TEMP 98.5
--- NOTE | 2020-11-04 16:43 | P.PN ---
Progress Note - Text Progress Note Date: 11/04/20 stage IA left breast cancer stage IA left breast cancer Franca is a 65-year-old white female who was seen in consultation for Dr. Osullivan regarding left breast invasive ductal carcinoma. The patient states that approximately 2 days prior to a routine mammogram which was performed on she noted a nodule in her left breast. The mammogram showed a faintly visualized rounded area measuring approximately 1 cm on the mediolateral oblique view of the left breast. Nothing was described of concern in the right breast. An ultrasound was then performed. The ultrasound revealed a 1.1 cm rounded mass at the area of the palpable abnormality. Ultrasound core biopsy was performed. Ultrasound core biopsy revealed a grade 2 ER positive NE positive HER-2/surjit equivocal invasive ductal carcinoma. The patient does not feel any other masses or lumps in her breasts. She does not have any nipple discharge of concern. No skin changes. No history of any recent trauma or infection of the breast. Patient has had a prior left breast biopsy which was benign. She underwent a left breast lumpectomy and sentinel node biopsy on 2419. All margins were negative. The lymph node was negative. She did have radiation therapy for 4 weeks. She is presently taking anastrozole. She did not have any chemotherapy. She is not having any side effects with the anastrozole that she is concerned about. She has not noted any new lumps masses or nodules in her breasts for which she is concerned. When she was seen on she was complaining of pain and swelling in the left breast. Her left breast got swollen two weeks after her second Madurna COVID injection. The patient states after the first injection she got a very sore arm, and after the second injection she did not feel anything however 2 weeks later the left breast became very swollen. The swelling has since gone down but she continues to have persistent discomfort in the left breast. She did not have any fever or chills. She saw her baseball glove shaper since her last visit and she did not think there was anything cardiac causing the discomfort in the left chest. The patient had a left breast ultrasound and this did not reveal any sonographic evidence to explain the breast pain. This was felt to be benign BIRADS 3 and follow-up diagnostic mammogram of the left breast was recommended in 6 months. The pain is described as an aching sensation in the inner aspect of her breast. It does not spread any place. She does follow with Dr[place] [address]. This was benign BIRADS 2. Physical Exam: oxygen dependant lungs: Auscultation Heart: Regular rate and rhythm Left breast examination: Mild fullness in the lower aspect which is tender to palpation, no evidence of any infection incision is clean and dry No evidence of any adenopathy and the left axilla Patient [place] [address] cystoscope to be probably benign follow-up diagnostic mammogram of left breast in 6 months did not show any specific lesions of concern the patient also saw cardiology who did not feel that the discomfort was cardiac in nature. Impression: 1. No evidence of recurrent left breast stage IA cancer 2. Persistent discomfort left breast at the inframammary ridge which started after her Covid vaccination approximately a month after the shot, the swelling in the breast has decreased but the pain at the inframammary ridge has remained persistent Plan: 1. Anti-inflammatory medications 2. Warm compresses to the breast 3. Rib x-rays CC: Dr. Osullivan
== END ==
LOC: WWCWWP 15:12
PROVIDERS: ATTEND Surgery
DX: N64.59 Other signs and symptoms in breast (principal); Z85.3 Personal history of malignant neoplasm of breast; Z98.890 Other specified postprocedural states; Z87.891 Personal history of nicotine dependence; Z88.0 Allergy status to penicillin; Z88.5 Allergy status to narcotic agent; Z91.041 Radiographic dye allergy status; Z88.8 Allergy status to other drugs, medicaments and biological substances; Z88.1 Allergy status to other antibiotic agents

== ENCOUNTER → 2020-11-05 | Outpatient (CLI) | payer MEDICARE, BC ==
--- NOTE | 2020-11-05 13:22 | XR ---
Left RIBS HISTORY: Intercostal pain, R08.82 4 views of the left ribs correlated to chest x-ray 04/11/2019 Surgical clips are present over the left breast. Bone mineralization is stable. No evident displaced rib fracture. Thoracic spondylosis is present. Surgical clips noted incidentally in the right upper quadrant, there are overlying artifacts. Heart s ize thought to be stable. Aorta is dense. IMPRESSION: No evident displaced rib fracture. Consider bone scan for increased sensitivity as indica justino to assess for occult fracture.
== END | disposition home or self-care (01) ==
LOC: RADXRMAIN 10:55
PROVIDERS: ATTEND Surgery
DX: R07.82 Intercostal pain (principal)

== ENCOUNTER → 2020-11-11 | Outpatient (CLI) | payer MEDICARE, BC ==
[2020-11-11 09:15] VITALS: BP 113/72; PULSE 52; RESP 20; TEMP 98.1
--- NOTE | 2020-11-11 09:41 | P.PN ---
Subjective Progress Note Date: 11/11/20 Principal diagnosis: left breast cancer stage IA left breast cancer Franca is a 65-year-old white female who was seen in consultation for Dr. Osullivan regarding left breast invasive ductal carcinoma. The patient states that approximately 2 days prior to a routine mammogram which was performed on she noted a nodule in her left breast. The mammogram showed a faintly visualized rounded area measuring approximately 1 cm on the mediolateral oblique view of the left breast. Nothing was described of concern in the right breast. An ultrasound was then performed. The ultrasound revealed a 1.1 cm rounded mass at the area of the palpable abnormality. Ultrasound core biopsy was performed. Ultrasound core biopsy revealed a grade 2 ER positive OH positive HER-2/surjit equivocal invasive ductal carcinoma. The patient does not feel any other masses or lumps in her breasts. She does not have any nipple discharge of concern. No skin changes. No history of any recent trauma or infection of the breast. Patient has had a prior left breast biopsy which was benign. She underwent a left breast lumpectomy and sentinel node biopsy on 2419. All margins were negative. The lymph node was negative. She did have radiation therapy for 4 weeks. She is presently taking anastrozole. She did not have any chemotherapy. She is not having any side effects with the anastrozole that she is concerned about. She has not noted any new lumps masses or nodules in her breasts for which she is concerned. When she was seen on she was complaining of pain and swelling in the left breast. Her left breast got swollen two weeks after her second Madurna COVID injection. The patient states after the first injection she got a very sore arm, and after the second injection she did not feel anything however 2 weeks later the left breast became very swollen. The swelling has since gone down but she continued to have persistent discomfort in the left breast. She did not have any fever or chills. She saw her payroll accounting manager since her last visit and she did not think there was anything cardiac causing the discomfort in the left chest. The patient had a left breast ultrasound and this did not reveal any sonographic evidence to explain the breast pain. This was felt to be benign BIRADS 3 and follow-up diagnostic mammogram of the left breast was recommended in 6 months. The pain is described as an aching sensation in the inner aspect of her breast. It does not spread any place. She does follow with Dr. Gama. The patient states since her Covid vaccination she has decreased mobility of her left arm. Additionally she has persistent discomfort at the inframammary left breast ridge which has improved slightly. The area of swelling has also decreased and it seems to be softer to the patient. She had a chest x-ray performed on 6420 which was no evidence of displaced rib fracture. Consider bone scan for increased sensitivity if necessary. The discomfort in her left breast has improved in that it is not painful unless she lays on it or touches it. Bilateral mammogram on . This was benign BIRADS 2. Objective - Vital Signs Vital signs: Vital Signs Temp 98.1 F 11/11/20 09:12 Pulse 52 L 11/11/20 09:12 Resp 20 11/11/20 09:12 BP 113/72 11/11/20 09:12 Pulse Ox 96 11/11/20 09:12 Intake & Output 11/10/20 11/11/20 11/11/20 18:59 06:59 18:59 Weight 48.988 kg - Constitutional General appearance: Present: cooperative - EENT Eyes: Present: EOMI ENT: Present: hearing grossly normal - Neck Neck: Present: normal ROM - Respiratory Details: oxygen dependant, lungs clear - Cardiovascular Heart sounds: normal: S1, S2 - Integumentary Integumentary Comment(s): Area of excoriation over the left arm where she hit her arm on a door - Musculoskeletal Musculoskeletal: Present: gait normal - Psychiatric Psychiatric: Present: A&O x's 3, appropriate affect, intact judgment & insight - Additional findings Additional findings: Breast exam: Limited to left breast area inframammary which appears less firm and less tender on today's examination no dominant masses or nodules which would warrant biopsy Assessment and Plan Assessment: Impression: Chest x-ray from 6420 no evident rib fracture No evidence of recurrent left breast stage IA cancer Decreased discomfort left breast after utilizing the Motrin and warm compresses Plan: 1. Anti-inflammatory medication as needed 2. Continue warm compresses as needed 3. Bone scan to rule out an occult fracture.
== END ==
LOC: WWCWWP 08:59
PROVIDERS: ATTEND Surgery
DX: N64.89 Other specified disorders of breast (principal); Z85.3 Personal history of malignant neoplasm of breast; Z98.890 Other specified postprocedural states; Z88.0 Allergy status to penicillin; Z88.1 Allergy status to other antibiotic agents; Z91.041 Radiographic dye allergy status; Z91.018 Allergy to other foods; Z88.5 Allergy status to narcotic agent; Z87.891 Personal history of nicotine dependence

== ENCOUNTER → 2020-11-25 | Outpatient (CLI) | payer MEDICARE, BC ==
--- NOTE | 2020-11-25 15:58 | NM ---
EXAMINATION TYPE: NM bone scan whole body DATE OF EXAM: 11/25/2020 COMPARISON: NONE HISTORY: N64.4 personal hx breast ca Delayed whole-body scanning was performed following the injection of 21.3 mCi Tc 99m MDP. Images acq uired 3 hours post injection. FINDINGS: Soft tissue uptake is normal. Uptake within the hands, wrists, shoulders is likely degenerative. No a reas of abnormal increased or decreased uptake to suggest metastatic disease. IMPRESSION: No evident metastatic disease.
== END | disposition home or self-care (01) ==
LOC: RADNMMAIN 11:23
PROVIDERS: ATTEND Surgery
DX: N64.4 Mastodynia (principal); Z85.3 Personal history of malignant neoplasm of breast
CPT/HCPCS: 78306; A9503

== ENCOUNTER → 2020-12-17 | Outpatient (CLI) | payer MEDICARE, BC ==
[2020-12-17 07:56] LABS: ABG Base Excess 6.1 mmol/L; ABG HCO3 31 mmol/L (21-25); ABG Oxygen Saturation 92.9 % (94-97); ABG PCO2 50 mmHg (35-45); ABG PO2 65 mmHg (83-108); ABG TCO2 32 mmol/L (19-24); Allen Test Performed? Yes
== END | disposition home or self-care (01) ==
LOC: LABWHC1 07:28
PROVIDERS: ATTEND Internal Medicine Critical Care Medicine
DX: J44.9 Chronic obstructive pulmonary disease, unspecified (principal)
CPT/HCPCS: 36600; 82805

== ENCOUNTER → 2020-12-31 | Outpatient (CLI) | payer MEDICARE, BC ==
--- NOTE | 2020-12-31 11:10 | CT ---
EXAMINATION TYPE: CT chest Nevaeh murguia protocol DATE OF EXAM: 12/31/2020 COMPARISON: 05/02/2019 HISTORY: 65-year-old female Respiratory failure TECHNIQUE: Axial scanning of the chest utilizing 1 mm slice thickness. Subsequent HRCT technique with bone prone and supine imaging with a 1 mm slice thickness and 1 cm gap. Coronal and sagittal reconst ructions performed. CT DLP: 342.2 mGycm Automated exposure control for dose reduction was used. FINDINGS: Postsurgical change posterior right breast. Heart normal size without pericardial effusion. Aorta normal caliber with moderate atherosclerotic arch calcifications and conventional arch vessel b ranching anatomy. Scattered small AP window and precarinal lymph nodes measuring up to 6 mm short axis. No thoracic lym phadenopathy by CT size criteria. There is moderately advanced centrilobular emphysema within upper to mid lung predominance. Subtle tree-in-bud opacities lateral left midlung, axial image 117 are unchanged. Mild diffuse bronch ial wall thickening left apical pleural-parenchymal scarring. 4 mm peripheral right upper lobe pulmonary nodule appears to have been present on prior study. No honeycombing, thickening of the bronchovascular bundles, there is cystic change, demonstrating mami undglass opacities, or perihepatic nodularity. There is a small to moderate-sized hiatal hernia. Visualized upper abdomen shows partially visualized punctate 2 mm nonobstructive right renal calculus. Moderate vascular calcifications infrarenal abdom inal aorta. Bones: Osteopenia. Accentuated lower thoracic kyphosis secondary to superior endplate deformity at T1 0 and superior endplate Schmorl's node at T11. Additional mild superior endplate deformity of T5. Fin dings all unchanged from 2019 compatible with chronic compression deformities. IMPRESSION: 1. COPD WITH MODERATELY ADVANCED EMPHYSEMA. A 4 MM RIGHT UPPER LOBE PULMONARY NODULE IS UNCHANGED FRO 2018 COMPATIBLE WITH A BENIGN ETIOLOGY. 2. SMALL TO MODERATE SIZED HIATAL HERNIA.
== END | disposition home or self-care (01) ==
LOC: RADCTMAIN 08:22
PROVIDERS: ATTEND Internal Medicine Critical Care Medicine
DX: J43.9 Emphysema, unspecified (principal); R91.1 Solitary pulmonary nodule; K44.9 Diaphragmatic hernia without obstruction or gangrene
CPT/HCPCS: 71250

== ENCOUNTER 2021-01-09 17:52 | Inpatient (IN) | payer MEDICARE, BC ==
[2021-01-09] MEDS ORDERED: IPRATROPIUM 0.5 MG/2.5 ML NEBU INHALATION STA (18:03)
[2021-01-09] MEDS ORDERED: ALBUTEROL NEBULIZED 2.5 MG/3 ML INHALATION STA (18:03)
[2021-01-09] MEDS ORDERED: DEXAMETHASONE SOD PHOSPHATE 10 MG/ML 1 ML VIAL IV STA (18:04)
--- NOTE | 2021-01-09 18:06 | ED ---
General Adult HPI - General Chief complaint: Shortness of Breath Stated complaint: SOB Time Seen by Provider: 01/09/21 18:01 Source: patient Mode of arrival: wheelchair Limitations: no limitations - History of Present Illness Initial comments: Dictation was produced using [employer] dictation software. please excuse any grammatical, word or spelling errors. Chief Complaint: 65-year-old female presents with dyspnea and chest pain History of Present Illness: Is a 65-year-old female for the last 2 days she's been having shortness of breath and substernal chest pain. Patient has a history of COPD and wears home oxygen. While camping there was a lot of smoke exposure in this exposure. She states that she no she wasn't supposed right on the back of a golf cart outdoors but she did it to enjoy her time with her family. Shortly after that cough [place] she began having some shortness of breath. 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 She takes COPD medications. Patient states she has some substernal chest pressure. She states worse with deep inspiration. She denies any history of heart attacks. States that she has a pressure discomfort to her left side of her chest. States it radiates up towards her left jaw. The ROS documented in this emergency department record has been reviewed and confirmed by me. Those systems with pertinent positive or negative responses have been documented in the HPI. All other systems are other negative and/or noncontributory. PHYSICAL EXAM: General Impression: Alert and oriented x3, dyspneic, breathing through pursed lips HEENT: Normocephalic atraumatic, extra-ocular movements intact, pupils equal and reactive to light bilaterally, mucous membranes moist. Cardiovascular: Heart regular rate and rhythm Chest: Able to complete 3 word sentences, no retractions, no tachypnea, diffuse wheezing with auscultation Abdomen: abdomen soft, non-tender, non-distended, no organomegaly Musculoskeletal: Pulses present and equal in all extremities, no peripheral edema Motor: no focal deficits noted Neurological: CN II-XII grossly intact, no focal motor or sensory deficits noted Skin: Intact with no visualized rashes Psych: Normal affect and mood ED course: 65-year-old female presents to emergency department clinical presentation consistent with COPD exacerbation. Vital signs upon arrival shows respiratory rate of 28, oxygen saturation of 84 on 4 L nasal cannula. Heart rate of 105. Afebrile. EKG shows ischemic changes to her lateral precordial leads. Multiple EKGs were obtained showing no dynamic changes. Sinus elevations to suggest ST segment elevation AR. Nonetheless given the patient is having active pain patient started on heparin and given aspirin for treatment of unstable angina EKG interpretation: Ventricular rate 108, sinus tachycardia, IN interval 122, QRS 74, QTC 436. No IN prolongation. There does appear to be ST depressions in the lateral precordial leads. No ST elevation. These appear to be no depressions compared to EKG from 04/11/2019. Overall this EKG is concerning for ischemia. No evidence of ST segment elevation AR. Laboratory evaluation obtained. Leukocytosis of 18.1. Cardiac panel is unremarkable. Metabolic panel is within acceptable limits. Troponin is slightly elevated 0.025 with BNP of 1590. Chest x-ray shows infiltrate. Given the patient having COPD exacerbation with no infiltrate patient started on azithromycin. Patient reevaluated bedside at 7:45 PM found to be stable medical condition. She states her chest pain is improved. She does to appear to be breathing more comfortably on BiPAP. Case discussed with Dr. Ascencio was aware of patient's presentation. Patient be admitted to [facility] for further care. pulmonology also on consult for copd. - Related Data Home Medications Medication Instructions Recorded Confirmed Hydroxychloroquine Sulfate 200 mg PO BID 03/29/15 01/09/21 [Plaquenil] Pantoprazole Sodium [Protonix] 40 mg PO DAILY 03/29/15 01/09/21 Fluticasone/Salmeterol [Advair 1 puff INHALATION RT-BID 05/31/16 01/09/21 500-50 Diskus] Gabapentin [Neurontin] 300 mg PO BID 04/07/19 01/09/21 Levalbuterol Hfa Inhaler [Xopenex 1 puff INHALATION RT-Q6H PRN 04/07/19 01/09/21 Hfa Inhaler] Calcium Carbonate [Calcium] 1,200 mg PO DAILY 04/29/19 01/09/21 Cholecalciferol (Vitamin D3) 2,000 mcg PO DAILY 05/23/19 01/09/21 [Vitamin D3] Letrozole [Femara] 2.5 mg PO DAILY 10/23/19 01/09/21 Tiotropium 18 Mcg/Puff [Spiriva] 1 puff INHALATION RT-DAILY 10/30/19 01/09/21 Albuterol Nebulized [Ventolin 2.5 mg INHALATION RT-QID PRN 11/04/20 01/09/21 Nebulized] Docusate [Colace] 100 mg PO DAILY 01/09/21 01/09/21 buPROPion HCL [Wellbutrin SR] 100 mg PO BID 01/09/21 01/09/21 predniSONE 10 mg PO DAILY PRN 01/09/21 01/09/21 Allergies Allergy/AdvReac Type Severity Reaction Status Date / Time banana Allergy Abdominal Verified 01/09/21 18:40 Pain budesonide [From Pulmicort] Allergy Dyspnea Verified 01/09/21 18:40 Iodinated Contrast Media Allergy Anaphylaxis Verified 01/09/21 18:40 [Iodinated Contrast Media - IV Dye] penicillin G Allergy Rash/Hives Verified 01/09/21 18:40 codeine AdvReac Nausea & Verified 01/09/21 18:40 Vomiting levofloxacin AdvReac joint pain Verified 01/09/21 18:40 verapamil AdvReac HEADACHE Verified 01/09/21 18:40 Review of Systems ROS Statement: Those systems with pertinent positive or pertinent negative responses have been documented in the HPI. ROS Other: All systems not noted in ROS Statement are negative. Past Medical History Past Medical History: COPD, GERD/Reflux, Pneumonia, Respiratory Disorder Additional Past Medical History / Comment(s): COPD with an FEV of 35% , DONTE lung nodules being monitored measuring 8x14mm , home O2 at 2L/NC ATC mostly lately, SJORGEN'S SYNDROME History of Any Multi-Drug Resistant Organisms: None Reported Past Surgical History: Cholecystectomy, Hysterectomy, Orthopedic Surgery Additional Past Surgical History / Comment(s): Bronchoscopies with bx, [place] wrist carpal tunnel, TMJ surgery, L neck cyst removed, colonoscopy. Past Anesthesia/Blood Transfusion Reactions: Previous Problems w/ Anesthesia Additional Past Anesthesia/Blood Transfusion Reaction / Comment(s): SLOW TO WAKE UP Past Psychological History: No Psychological Hx Reported Smoking Status: Former smoker Past Alcohol Use History: None Reported Past Drug Use History: None Reported - Past Family History Father Family Medical History: Cancer Additional Family Medical History / Comment(s): LUNG Mother Family Medical History: Cancer Additional Family Medical History / Comment(s): BREAST General Exam Limitations: no limitations Course Vital Signs 01/09/21 01/09/21 01/09/21 17:55 18:21 18:50 Temperature 98.1 F Pulse Rate 105 H 106 H 109 H Respiratory 28 H 27 H 22 Rate Blood Pressure 185/62 O2 Sat by Pulse 84 L Oximetry 01/09/21 19:01 Temperature Pulse Rate 98 Respiratory 18 Rate Blood Pressure 126/72 O2 Sat by Pulse 100 Oximetry Medical Decision Making - Lab Data Result diagrams: 01/09/21 18:08 01/09/21 18:08 Lab Results 01/09/21 01/09/21 01/09/21 Range/Units 18:08 18:08 18:08 WBC 18.1 H (3.8-10.6) k/uL RBC 5.08 (3.80-5.40) m/uL Hgb 15.9 (11.4-16.0) gm/dL Hct 49.5 H (34.0-46.0) % MCV 97.4 (80.0-100.0) fL MCH 31.2 (25.0-35.0) pg MCHC 32.0 (31.0-37.0) g/dL RDW 13.3 (11.5-15.5) % Plt Count 190 (150-450) k/uL MPV 7.4 Neutrophils % 90 % Lymphocytes % 5 % Monocytes % 3 % Eosinophils % 1 % Basophils % 0 % Neutrophils # 16.4 H (1.3-7.7) k/uL Lymphocytes # 1.0 (1.0-4.8) k/uL Monocytes # 0.5 (0-1.0) k/uL Eosinophils # 0.1 (0-0.7) k/uL Basophils # 0.0 (0-0.2) k/uL PT 10.3 (9.0-12.0) sec INR 1.0 (<1.2) APTT 22.8 (22.0-30.0) sec Sodium 137 (137-145) mmol/L Potassium 4.2 (3.5-5.1) mmol/L Chloride 96 L (98-107) mmol/L Carbon Dioxide 32 H (22-30) mmol/L Anion Gap 9 mmol/L BUN 17 (7-17) mg/dL Creatinine 0.41 L (0.52-1.04) mg/dL Est GFR (CKD-EPI)AfAm >90 (>60 ml/min/1.73 sqM) Est GFR (CKD-EPI)NonAf >90 (>60 ml/min/1.73 sqM) Glucose 157 H (74-99) mg/dL Calcium 9.7 (8.4-10.2) mg/dL Magnesium 2.1 (1.6-2.3) mg/dL Troponin I (0.000-0.034) ng/mL NT-Pro-B Natriuret Pep pg/mL 01/09/21 01/09/21 Range/Units 18:08 18:08 WBC (3.8-10.6) k/uL RBC (3.80-5.40) m/uL Hgb (11.4-16.0) gm/dL Hct (34.0-46.0) % MCV (80.0-100.0) fL MCH (25.0-35.0) pg MCHC (31.0-37.0) g/dL RDW (11.5-15.5) % Plt Count (150-450) k/uL MPV Neutrophils % % Lymphocytes % % Monocytes % % Eosinophils % % Basophils % % Neutrophils # (1.3-7.7) k/uL Lymphocytes # (1.0-4.8) k/uL Monocytes # (0-1.0) k/uL Eosinophils # (0-0.7) k/uL Basophils # (0-0.2) k/uL PT (9.0-12.0) sec INR (<1.2) APTT (22.0-30.0) sec Sodium (137-145) mmol/L Potassium (3.5-5.1) mmol/L Chloride (98-107) mmol/L Carbon Dioxide (22-30) mmol/L Anion Gap mmol/L BUN (7-17) mg/dL Creatinine (0.52-1.04) mg/dL Est GFR (CKD-EPI)AfAm (>60 ml/min/1.73 sqM) Est GFR (CKD-EPI)NonAf (>60 ml/min/1.73 sqM) Glucose (74-99) mg/dL Calcium (8.4-10.2) mg/dL Magnesium (1.6-2.3) mg/dL Troponin I 0.025 (0.000-0.034) ng/mL NT-Pro-B Natriuret Pep 1590 pg/mL Critical Care Time Critical Care Time: Yes Total Critical Care Time: 33 Disposition Clinical Impression: Unstable angina, COPD exacerbation Disposition: ADMITTED IP TO THIS [facility] Condition: Critical Referrals: Jaxon Osullivan DO [Primary Care Provider] - 1-2 days
[2021-01-09 18:19] LABS: Basophils % (A) 0 %; Eosinophils # (A) 0.1 k/uL (0-0.7); Eosinophils % (A) 1 %; HCT 49.5 % (34.0-46.0); HGB 15.9 gm/dL (11.4-16.0); Lymphocytes % (A) 5 %; MCH 31.2 pg (25.0-35.0); MCV 97.4 fL (80.0-100.0); Mean Platelet Volume 7.4; Monocytes # (A) 0.5 k/uL (0-1.0); Monocytes % (A) 3 %; Neutrophils # (A) 16.4 k/uL (1.3-7.7); Neutrophils % (A) 90 %; Platelet Count 190 k/uL (150-450); RBC 5.08 m/uL (3.80-5.40); RDW 13.3 % (11.5-15.5); WBC 18.1 k/uL (3.8-10.6)
[2021-01-09] MEDS ORDERED: ASPIRIN 81 MG PO STA (18:36)
[2021-01-09] MEDS ORDERED: HEPARIN SODIUM 1,000 UN/ML (10ML VL) IV ONE (18:36)
[2021-01-09] MEDS ORDERED: HEPARIN SODIUM 1,000 UN/ML (10ML VL) IV PRN (18:36)
[2021-01-09 18:41] LABS: Partial Thromboplastin Time 22.8 sec (22.0-30.0); Prothrombin Time 10.3 sec (9.0-12.0)
[2021-01-09 18:44] LABS: African American GFR (CKD) >90 (>60 ml/min/1.73 sqM); Anion Gap 9 mmol/L; Blood Urea Nitrogen 17 mg/dL (7-17); Calcium 9.7 mg/dL (8.4-10.2); Carbon Dioxide 32 mmol/L (22-30); Chloride 96 mmol/L (98-107); Glucose 157 mg/dL (74-99); Magnesium 2.1 mg/dL (1.6-2.3); Non-African American GFR(CKD) >90 (>60 ml/min/1.73 sqM); Potassium 4.2 mmol/L (3.5-5.1); Sodium 137 mmol/L (137-145)
[2021-01-09] MEDS ORDERED: HEPARIN SOD,PORK IN 0.45% NACL 25,000 UNIT in 0.45% NACL 1 250ML.BAG IV SCH (18:45)
--- NOTE | 2021-01-09 18:54 | XR ---
EXAMINATION TYPE: XR chest 1V portable DATE OF EXAM: 01/09/2021 COMPARISON: 07/09/2019 HISTORY: Short of breath TECHNIQUE: FINDINGS: There is no heart failure. There is a possible left side perihilar mild infiltrate. Costoph renic angles are clear. Thoracic aorta is atheromatous. There are chest leads. There is flattening of the diaphragm. IMPRESSION: COPD. Possible new left side perihilar pneumonia compared to old exam.
[2021-01-09] MEDS ORDERED: AZITHROMYCIN 500 MG in SODIUM CHLORIDE 0.9% 250 ML IVPB STA (19:19)
[2021-01-09] MEDS ORDERED: NITROGLYCERIN SL TABS 0.4 MG TAB SUBLINGUAL PRN (19:33)
[2021-01-09] MEDS ORDERED: NITROGLYCERIN OINT 1 INCH/GM PACKET TOPICAL STA (19:36)
[2021-01-09] MEDS ORDERED: ONDANSETRON 4 MG/2 ML VIAL IVP PRN (22:07)
[2021-01-10] MEDS: ACETAMINOPHEN TAB 325 MG TAB PO PRN ×3 (05:05→19:13)
[2021-01-10] MEDS ORDERED: ALBUTEROL NEBULIZED 2.5 MG/3 ML INHALATION PRN (08:07)
[2021-01-10] MEDS ORDERED: NON FORMULARY DRUG (Levalbuterol Hfa Inhaler 200 PUFF/9 GM Inhaler) INHALATION PRN (08:07)
[2021-01-10] MEDS: CALCIUM CARBONATE 500 MG CHEWABLE PO SCH (08:27)
[2021-01-10] MEDS: ASPIRIN 81 MG PO SCH (08:27)
[2021-01-10] MEDS: PANTOPRAZOLE 40 MG TABLET PO SCH (08:28)
[2021-01-10] MEDS: DOCUSATE 100 MG CAP PO SCH (08:28)
[2021-01-10] MEDS: GABAPENTIN 300 MG CAP PO SCH ×2 (08:28→20:38)
[2021-01-10] MEDS: CHOLECALCIFEROL 25 MCG (1000 IU) TABLET PO SCH (08:28)
[2021-01-10] MEDS: HYDROXYCHLOROQUINE SULFATE 200 MG TAB PO SCH ×2 (08:29→20:38)
[2021-01-10] MEDS: LETROZOLE 2.5 MG TAB PO SCH (08:29)
[2021-01-10] MEDS: buPROPion SR 100 MG TABLET.ER PO SCH ×2 (08:29→20:38)
[2021-01-10] MEDS ORDERED: ASPIRIN 325 MG TAB PO SCH (09:00)
[2021-01-10] MEDS: HEPARIN SODIUM,PORCINE/PF 5,000 UNIT/0.5 ML SYRINGE SQ SCH ×3 (09:05→20:38)
[2021-01-10] MEDS: METOPROLOL TARTRATE 12.5 MG TAB PO SCH ×2 (09:08→20:38)
[2021-01-10] MEDS ORDERED: IPRATROPIUM-ALBUTEROL 3 ML NEB INHALATION PRN (09:25)
[2021-01-10] MEDS ORDERED: AMOXIC-POT CLAV 875-125MG 1 EACH TAB PO SCH (09:30)
[2021-01-10 09:42] LABS: Chol/HDL Ratio 2.12; LDL Cholesterol,Calculated 74.2 mg/dL (0.0-131.0); VLDL Calculation 16.8 mg/dL (5.00-40.00)
--- NOTE | 2021-01-10 10:59 | P.CRDCN ---
History of Present Illness Consult date: 01/10/21 History of present illness: HISTORY OF PRESENT ILLNESS: This is a 65-year-old female with a past medical history significant for former nicotine dependence, COPD, and breast cancer. Patient follows in the office with Dr. Ascencio. We have been asked to see the patient in consultation for chest pain. Patient examined at the bedside. Patient states she was camping with her grandkids and was exposed to a lot of smoke from a campfire and also the humidity. She states she started having shortness of breath approximately 2 days ago. She reports having chest pain that started around that time as well. She reports intermittent chest pain since that time. She states the pain did go up into her jaw. She also reports feeling nauseated yesterday as well. She reports the pain is worse with deep inspiration and chest wall palpation. At t he time of examination, the patient denies chest pain or pressure. She does appear somewhat dyspneic and has mildly labored breathing. Patient reports she is a former smoker and quit smoking 5 years ago. EKG reviewed with Dr. Sanchez revealed sinus mechanism with evidence of LVH and nonspecific ST-T wave changes Chest xray COPD. Possible new left-sided perihilar pneumonia compared to old exam. Laboratory data: WBC 18.1. Hemoglobin 15.9. Platelet count 190. Sodium 137. Potassium 4.2. BUN 17. Creatinine 0.41. BNP 1590. Current home cardiac medications include none. Patient underwent stress echocardiogram in June 2019 which was negative for ischemia REVIEW OF SYSTEMS: At the time of my exam: CONSTITUTIONAL: Denies fever or chills. HEENT: Denies blurred vision, vision changes, or eye pain. Denies hemoptysis CARDIOVASCULAR: Denies chest pain. Denies orthopnea. Denies PND. Denies palpitations RESPIRATORY: Reports shortness of breath. GASTROINTESTINAL: Denies abdominal pain. Denies nausea or vomiting. HEMATOLOGIC: Denies bleeding disorders. GENITOURINARY: Denies any blood in urine. SKIN: Denies pruitis. Denies rash. PHYSICAL EXAM: VITAL SIGNS: Reviewed. GENERAL: Well-developed in no acute distress. HEENT: Head is normocephalic. Pupils are equal, round. Sclerae anicteric. Mucous membranes of the mouth are moist. Neck supple. No JVD or thyromegaly LUNGS: Respirations even and unlabored. Lungs with decreased air exchange bilaterally. Left lower lobe with wheezing noted. HEART: Regular rate and rhythm. S1 and S2 heard. ABDOMEN: Soft. Nondistended. Nontender. EXTREMITIES: Normal range of motion. No clubbing or cyanosis. Peripheral pulses intact. No lower extremity edema NEUROLOGIC: Awake and alert. Oriented x 3. ASSESSMENT: Acute exacerbation of COPD Chronic hypoxic respiratory failure, patient on home oxygen Chest pain, troponins negative 3 History of breast cancer Former nicotine dependence PLAN: Acute coronary event has been ruled out Obtain 2-D echo to assess cardiac structure and function Begin aspirin 81 mg daily Begin metoprolol tartrate 12.5 mg twice a day Pulmonary consulted Further recommendations pending patient course Nurse practitioner note has been reviewed by physician. Signing provider agrees with the documented findings, assessment, and plan of care. Past Medical History Past Medical History: COPD, GERD/Reflux, Pneumonia, Respiratory Disorder Additional Past Medical History / Comment(s): COPD with an FEV of 35% , DONTE lung nodules being monitored measuring 8x14mm , home O2 at 2L/NC ATC mostly lately, SJORGEN'S SYNDROME History of Any Multi-Drug Resistant Organisms: None Reported Past Surgical History: Cholecystectomy, Hysterectomy, Orthopedic Surgery Additional Past Surgical History / Comment(s): Bronchoscopies with bx, [place] wrist carpal tunnel, TMJ surgery, L neck cyst removed, colonoscopy. Past Anesthesia/Blood Transfusion Reactions: Previous Problems w/ Anesthesia Additional Past Anesthesia/Blood Transfusion Reaction / Comment(s): SLOW TO WAKE UP Past Psychological History: No Psychological Hx Reported Additional Psychological History / Comment(s): Pt resides with her spouse. She has home O2 and a nebulizer. She is independent. Smoking Status: Former smoker Past Alcohol Use History: None Reported Additional Past Alcohol Use History / Comment(s): QUIT SMOKING 2015, smoked since age 15, 1 PPD Past Drug Use History: None Reported - Past Family History Father Family Medical History: Cancer Additional Family Medical History / Comment(s): LUNG Mother Family Medical History: Cancer Additional Family Medical History / Comment(s): BREAST Medications and Allergies Home Medications Medication Instructions Recorded Confirmed Type Hydroxychloroquine Sulfate 200 mg PO BID 03/29/15 01/09/21 History [Plaquenil] Pantoprazole Sodium [Protonix] 40 mg PO DAILY 03/29/15 01/09/21 History Fluticasone/Salmeterol [Advair 1 puff INHALATION RT-BID 05/31/16 01/09/21 History 500-50 Diskus] Gabapentin [Neurontin] 300 mg PO BID 04/07/19 01/09/21 History Levalbuterol Hfa Inhaler [Xopenex 1 puff INHALATION RT-Q6H PRN 04/07/19 01/09/21 History Hfa Inhaler] Calcium Carbonate [Calcium] 1,200 mg PO DAILY 04/29/19 01/09/21 History Cholecalciferol (Vitamin D3) 2,000 mcg PO DAILY 05/23/19 01/09/21 History [Vitamin D3] Letrozole [Femara] 2.5 mg PO DAILY 10/23/19 01/09/21 History Tiotropium 18 Mcg/Puff [Spiriva] 1 puff INHALATION RT-DAILY 10/30/19 01/09/21 History Albuterol Nebulized [Ventolin 2.5 mg INHALATION RT-QID PRN 11/04/20 01/09/21 History Nebulized] Docusate [Colace] 100 mg PO DAILY 01/09/21 01/09/21 History buPROPion HCL [Wellbutrin SR] 100 mg PO BID 01/09/21 01/09/21 History predniSONE 10 mg PO DAILY PRN 01/09/21 01/09/21 History Allergies Allergy/AdvReac Type Severity Reaction Status Date / Time banana Allergy Abdominal Verified 01/09/21 18:40 Pain budesonide [From Pulmicort] Allergy Dyspnea Verified 01/09/21 18:40 Iodinated Contrast Media Allergy Anaphylaxis Verified 01/09/21 18:40 [Iodinated Contrast Media - IV Dye] penicillin G Allergy Rash/Hives Verified 01/09/21 18:40 codeine AdvReac Nausea & Verified 01/09/21 18:40 Vomiting levofloxacin AdvReac joint pain Verified 01/09/21 18:40 verapamil AdvReac HEADACHE Verified 01/09/21 18:40 Physical Exam Vitals: Vital Signs Temp Pulse Pulse Resp BP BP Pulse Ox 01/10/21 03:13 97.7 F 94 18 122/58 98 01/09/21 23:15 97.6 F 96 20 138/71 99 01/09/21 20:00 78 17 122/76 100 01/09/21 19:01 98 18 126/72 100 01/09/21 18:50 109 H 22 01/09/21 18:21 106 H 27 H 01/09/21 17:55 98.1 F 105 H 28 H 185/62 84 L Intake and Output 01/09/21 01/10/21 01/10/21 22:59 06:59 14:59 Intake Total 327.413 Balance 327.413 Intake: Intake, IV Titration 327.413 Amount Azithromycin 500 mg In 250 Sodium Chloride 0.9% 250 ml @ 250 mls/hr IVPB ONCE STA Rx#:[id number] Heparin Sod,Pork in 0.45% 77.413 NaCl 25,000 unit In 0.45 % NaCl 1 250ml.bag @ 12 UNITS/KG/HR 5.879 mls/hr IV .Q24H [facility] Rx#: [id number] Other: # Voids 1 Weight 48.988 kg 101.5 kg Results 01/09/21 18:08 01/09/21 18:08 Cardiac Enzymes 01/09/21 01/09/21 01/09/21 Range/Units 18:08 20:55 23:40 Troponin I 0.025 0.031 0.024 (0.000-0.034) ng/mL Coagulation 01/09/21 01/10/21 Range/Units 18:08 05:49 PT 10.3 (9.0-12.0) sec APTT 22.8 30.8 H (22.0-30.0) sec CBC 01/09/21 Range/Units 18:08 WBC 18.1 H (3.8-10.6) k/uL RBC 5.08 (3.80-5.40) m/uL Hgb 15.9 (11.4-16.0) gm/dL Hct 49.5 H (34.0-46.0) % Plt Count 190 (150-450) k/uL Comprehensive Metabolic Panel 01/09/21 Range/Units 18:08 Sodium 137 (137-145) mmol/L Potassium 4.2 (3.5-5.1) mmol/L Chloride 96 L (98-107) mmol/L Carbon Dioxide 32 H (22-30) mmol/L BUN 17 (7-17) mg/dL Creatinine 0.41 L (0.52-1.04) mg/dL Glucose 157 H (74-99) mg/dL Calcium 9.7 (8.4-10.2) mg/dL Current Medications Generic Name Dose Route Start Last Admin Trade Name No PRN Reason Stop Dose Admin Acetaminophen 325 mg 01/10/21 04:59 01/10/21 05:05 Acetaminophen Tab 325 Mg Tab PO 325 mg Q6HR PRN Administration Fever and/ or Pain Aspirin 325 mg 01/10/21 09:00 Aspirin 325 Mg Tab PO DAILY [facility] Heparin Sodium (Porcine) 0 unit 01/09/21 18:36 01/10/21 06:18 Heparin Sodium 1,000 Un/Ml (10ml Vl) IV 2,300 unit PER PROTOCOL PRN Administration Low PTT Protocol Heparin Sodium/Sodium Chloride 250 mls @ 5.879 mls/hr 01/09/21 18:45 01/10/21 06:19 25,000 unit/ Sodium Chloride IV 15 units/kg/hr .Q24H PAO 7.348 mls/hr Titration Protocol 12 UNITS/KG/HR Nitroglycerin 0.4 mg 01/09/21 19:33 Nitroglycerin Sl Tabs 0.4 Mg Tab SUBLINGUAL Q5M PRN Chest Pain Ondansetron HCl 4 mg 01/09/21 22:07 Ondansetron 4 Mg/2 Ml Vial IVP Q6HR PRN Nausea And Vomiting Intake and Output 01/09/21 01/10/21 01/10/21 22:59 06:59 14:59 Intake Total 327.413 Balance 327.413 Intake: Intake, IV Titration 327.413 Amount Azithromycin 500 mg In 250 Sodium Chloride 0.9% 250 ml @ 250 mls/hr IVPB ONCE STA Rx#:[id number] Heparin Sod,Pork in 0.45% 77.413 NaCl 25,000 unit In 0.45 % NaCl 1 250ml.bag @ 12 UNITS/KG/HR 5.879 mls/hr IV .Q24H PAO Rx#: [id number] Other: # Voids 1 Weight 48.988 kg 101.5 kg 01/09/21 18:08 01/09/21 18:08
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
[2021-01-10] MEDS: methylPREDNISolone SOD SUCCI 125 MG/2 ML VIAL IV SCH ×3 (11:53→23:30)
[2021-01-10] MEDS: AZITHROMYCIN 500 MG TAB PO SCH (11:53)
[2021-01-10] MEDS: IPRATROPIUM-ALBUTEROL 3 ML NEB INHALATION SCH ×3 (12:14→21:13)
--- NOTE | 2021-01-10 12:49 | ECHOF ---
Referral Reason:chest pain MEASUREMENTS -------- HEIGHT: 160.0 cm WEIGHT: 45.8 kg BP: 138/63 RVIDd: 1.8 cm (< 3.3) IVSd: 0.8 cm (0.6 - 1.1) LVIDd: 3.5 cm (3.9 - 5.3) LVPWd: 0.8 cm (0.6 - 1.1) IVSs: 1.7 cm LVIDs: 1.7 cm LVPWs: 1.7 cm LAESV Index (A-L): 21.93 ml/m Ao Diam: 2.8 cm (2.0 - 3.7) AV Cusp: 1.6 cm (1.5 - 2.6) LA Diam: 2.7 cm (2.7 - 3.8) MV EXCURSION: 8.742 mm (> 18.000) MV EF SLOPE: 36 mm/s (70 - 150) EPSS: 1.2 cm MV E Nolan: 0.77 m/s MV DecT: 241 ms MV A Nolan: 0.86 m/s MV E/A Ratio: 0.89 RAP: 5.00 mmHg RVSP: 22.82 mmHg FINDINGS -------- This was a technically adequate study. The left ventricular size is normal. Left ventricular wall thickness is normal. Overall left vent ricular systolic function is low-normal with, an EF between 50 - 55 %. The right ventricle is normal in size. The left atrial size is normal. Normal LA size by volume 22+/-6 ml/m2. The right atrial size is normal. The aortic valve was not well visualized. The mitral valve is normal. The mitral valve leaflets are mildly thickened. Mild mitral regurgita tion is present. The tricuspid valve appears structurally normal. Mild tricuspid regurgitation present. Right vent ricular systolic pressure is normal at < 35 mmHg. There is no pulmonic regurgitation present. The aortic root size is normal. Normal inferior vena cava with normal inspiratory collapse consistent with estimated right atrial pre ssure of 5 mmHg. There is a trivial pericardial effusion present. CONCLUSIONS -------- 1. The left ventricular size is normal. 2. Left ventricular wall thickness is normal. 3. Overall left ventricular systolic function is low-normal with, an EF between 50 - 55 %. 4. The mitral valve leaflets are mildly thickened. 5. Mild mitral regurgitation is present. 6. Mild tricuspid regurgitation present. 7. There is a trivial pericardial effusion present. VISITING TEACHER: Anahi Lopez RDCS
--- NOTE | 2021-01-10 14:06 | P.HPIM ---
History of Present Illness Patient is a 65-year-old female with known history of COPD with FEV1 of 44% came in with comments of shortness of breath going on for 2 days along with cough and yellowish to whitish sputum production and some pressure like substernal chest pain. Patient denied any fever chills patient the denied any diaphoresis associated with this chest pain patient was wheezing coughing because of which patient is admitted for chest pain with cardiology consult and for COPD exacerbation. Pulmonary consultation. Patient is pleasant and azithromycin chest x-ray did not show pneumonia EKG did not show any acute ST-T wave changes, troponins were negative. Patient is feeling much better now compared to yesterday patient's d-dimer is negative and was 0.17 REVIEW OF SYSTEMS: CONSTITUTIONAL: No fever, no malaise, no fatigue. HEENT: No recent visual problems or hearing problems. Denied any sore throat. CARDIOVASCULAR: No orthopnea, PND, no palpitations, no syncope. PULMONARY: no hemoptysis. GASTROINTESTINAL: No diarrhea, no nausea, no vomiting, no abdominal pain. NEUROLOGICAL: No headaches, no weakness, no numbness. HEMATOLOGICAL: Denies any bleeding or petechiae. GENITOURINARY: Denies any burning micturition, frequency, or urgency. MUSCULOSKELETAL/RHEUMATOLOGICAL: Denies any joint pain, swelling, or any muscle pain. ENDOCRINE: Denies any polyuria or polydipsia. The rest of the 14-point review of systems is negative. PHYSICAL EXAMINATION: GENERAL: The patient is alert and oriented x3, not in any acute distress. Thin built female HEENT: Pupils are round and equally reacting to light. EOMI. No scleral icterus. No conjunctival pallor. Normocephalic, atraumatic. No pharyngeal erythema. No thyromegaly. CARDIOVASCULAR: S1 and S2 present. No murmurs, rubs, or gallops. PULMONARY: Mildly decreased air entry bilateral lung sewell minimal expiratory wheezing on exam ABDOMEN: Soft, nontender, nondistended, normoactive bowel sounds. No palpable organomegaly. MUSCULOSKELETAL: No joint swelling or deformity. EXTREMITIES: No cyanosis, clubbing, or pedal edema. NEUROLOGICAL: Gross neurological examination did not reveal any focal deficits. SKIN: No rashes. Assessment and plan Didn't chronic hypercapnic and hypoxic respiratory failure secondary to COPD exacerbation patient will continue on systemic steroids inhalational treatments pulmonary evaluated the patient -History as above syndrome Chest pain rule out a concurrent syndromes. Chest pain is atypical was evaluated by cardiology intervention at this time -Left upper lobe pulmonary nodules which will be followed as an outpatient -Gastroesophageal reflux disease Leukocytosis reactive to COPD DVT prophylaxis: Subcutaneous heparin Past Medical History Past Medical History: COPD, GERD/Reflux, Pneumonia, Respiratory Disorder Additional Past Medical History / Comment(s): COPD with an FEV of 35% , DONTE lung nodules being monitored measuring 8x14mm , home O2 at 2L/NC ATC mostly lately, SJORGEN'S SYNDROME History of Any Multi-Drug Resistant Organisms: None Reported Past Surgical History: Cholecystectomy, Hysterectomy, Orthopedic Surgery Additional Past Surgical History / Comment(s): Bronchoscopies with bx, [place] wrist carpal tunnel, TMJ surgery, L neck cyst removed, colonoscopy. Past Anesthesia/Blood Transfusion Reactions: Previous Problems w/ Anesthesia Additional Past Anesthesia/Blood Transfusion Reaction / Comment(s): SLOW TO WAKE UP Past Psychological History: No Psychological Hx Reported Additional Psychological History / Comment(s): Pt resides with her spouse. She has home O2 and a nebulizer. She is independent. Smoking Status: Former smoker Past Alcohol Use History: None Reported Additional Past Alcohol Use History / Comment(s): QUIT SMOKING 2015, smoked since age 15, 1 PPD Past Drug Use History: None Reported - Past Family History Father Family Medical History: Cancer Additional Family Medical History / Comment(s): LUNG Mother Family Medical History: Cancer Additional Family Medical History / Comment(s): BREAST Medications and Allergies Home Medications Medication Instructions Recorded Confirmed Type Hydroxychloroquine Sulfate 200 mg PO BID 03/29/15 01/09/21 History [Plaquenil] Pantoprazole Sodium [Protonix] 40 mg PO DAILY 03/29/15 01/09/21 History Fluticasone/Salmeterol [Advair 1 puff INHALATION RT-BID 05/31/16 01/09/21 History 500-50 Diskus] Gabapentin [Neurontin] 300 mg PO BID 04/07/19 01/09/21 History Levalbuterol Hfa Inhaler [Xopenex 1 puff INHALATION RT-Q6H PRN 04/07/19 01/09/21 History Hfa Inhaler] Calcium Carbonate [Calcium] 1,200 mg PO DAILY 04/29/19 01/09/21 History Cholecalciferol (Vitamin D3) 2,000 mcg PO DAILY 05/23/19 01/09/21 History [Vitamin D3] Letrozole [Femara] 2.5 mg PO DAILY 10/23/19 01/09/21 History Tiotropium 18 Mcg/Puff [Spiriva] 1 puff INHALATION RT-DAILY 10/30/19 01/09/21 History Albuterol Nebulized [Ventolin 2.5 mg INHALATION RT-QID PRN 11/04/20 01/09/21 History Nebulized] Docusate [Colace] 100 mg PO DAILY 01/09/21 01/09/21 History buPROPion HCL [Wellbutrin SR] 100 mg PO BID 01/09/21 01/09/21 History predniSONE 10 mg PO DAILY PRN 01/09/21 01/09/21 History Allergies Allergy/AdvReac Type Severity Reaction Status Date / Time banana Allergy Abdominal Verified 01/09/21 18:40 Pain budesonide [From Pulmicort] Allergy Dyspnea Verified 01/09/21 18:40 Iodinated Contrast Media Allergy Anaphylaxis Verified 01/09/21 18:40 [Iodinated Contrast Media - IV Dye] penicillin G Allergy Rash/Hives Verified 01/09/21 18:40 codeine AdvReac Nausea & Verified 01/09/21 18:40 Vomiting levofloxacin AdvReac joint pain Verified 01/09/21 18:40 verapamil AdvReac HEADACHE Verified 01/09/21 18:40 Physical Exam Vitals: Vital Signs Temp Pulse Pulse Resp BP BP Pulse Ox 01/10/21 12:28 88 01/10/21 12:17 89 01/10/21 11:35 98.8 F 88 20 134/65 100 01/10/21 08:28 85 01/10/21 08:15 89 98 01/10/21 08:00 98 F 92 24 138/63 99 01/10/21 03:13 97.7 F 94 18 122/58 98 01/09/21 23:15 97.6 F 96 20 138/71 99 01/09/21 20:00 78 17 122/76 100 01/09/21 19:01 98 18 126/72 100 01/09/21 18:50 109 H 22 01/09/21 18:21 106 H 27 H 01/09/21 17:55 98.1 F 105 H 28 H 185/62 84 L Intake and Output 01/09/21 01/10/21 01/10/21 22:59 06:59 14:59 Intake Total 327.413 480 Balance 327.413 480 Intake: Intake, IV Titration 327.413 Amount Azithromycin 500 mg In 250 Sodium Chloride 0.9% 250 ml @ 250 mls/hr IVPB ONCE STA Rx#:[id number] Heparin Sod,Pork in 0.45% 77.413 NaCl 25,000 unit In 0.45 % NaCl 1 250ml.bag @ 12 UNITS/KG/HR 5.879 mls/hr IV .Q24H [facility] Rx#: [id number] Oral 480 Other: # Voids 1 1 Weight 48.988 kg 101.5 kg Results CBC & Chem 7: 01/09/21 18:08 01/09/21 18:08 Labs: Abnormal Lab Results - Last 24 Hours (Table) 01/09/21 01/09/21 01/10/21 Range/Units 18:08 18:08 05:49 WBC 18.1 H (3.8-10.6) k/uL Hct 49.5 H (34.0-46.0) % Neutrophils # 16.4 H (1.3-7.7) k/uL APTT (22.0-30.0) sec Chloride 96 L (98-107) mmol/L Carbon Dioxide 32 H (22-30) mmol/L Creatinine 0.41 L (0.52-1.04) mg/dL Glucose 157 H (74-99) mg/dL HDL Cholesterol 81.0 H (40.0-60.0) mg/dL 01/10/21 Range/Units 05:49 WBC (3.8-10.6) k/uL Hct (34.0-46.0) % Neutrophils # (1.3-7.7) k/uL APTT 30.8 H (22.0-30.0) sec Chloride (98-107) mmol/L Carbon Dioxide (22-30) mmol/L Creatinine (0.52-1.04) mg/dL Glucose (74-99) mg/dL HDL Cholesterol (40.0-60.0) mg/dL Thrombosis Risk Factor Assmnt - Choose All That Apply Any of the Below Risk Factors Present?: Yes Each Factor Represents 1 point: Abnormal pulmonary function (COPD) Each Risk Factor Represents 2 Points: Age 61-74 years Thrombosis Risk Factor Assessment Total Risk Factor Score: 3 Thrombosis Risk Factor Assessment Level: Moderate Risk
[2021-01-10] MEDS ORDERED: ADVAIR INHALATION SCH (20:00)
[2021-01-10] MEDS ORDERED: BUDESONIDE 1 MG/2 ML NEBU INHALATION SCH (20:00)
[2021-01-10] MEDS ORDERED: BUTALB/APAP/CAFF 50-325-40MG TAB PO PRN (20:47)
[2021-01-10] MEDS: FORMOTEROL FUMARATE 20 MCG/2 ML NEBU INHALATION SCH (21:12)
[2021-01-11] MEDS: methylPREDNISolone SOD SUCCI 125 MG/2 ML VIAL IV SCH (05:44)
[2021-01-11] MEDS: FORMOTEROL FUMARATE 20 MCG/2 ML NEBU INHALATION SCH (08:30)
[2021-01-11] MEDS: IPRATROPIUM-ALBUTEROL 3 ML NEB INHALATION SCH ×4 (08:30→20:14)
[2021-01-11] MEDS: CALCIUM CARBONATE 500 MG CHEWABLE PO SCH (09:04)
[2021-01-11] MEDS: GABAPENTIN 300 MG CAP PO SCH ×2 (09:04→19:57)
[2021-01-11] MEDS: HEPARIN SODIUM,PORCINE/PF 5,000 UNIT/0.5 ML SYRINGE SQ SCH ×2 (09:04→19:58)
[2021-01-11] MEDS: buPROPion SR 100 MG TABLET.ER PO SCH ×2 (09:04→19:58)
[2021-01-11] MEDS: AZITHROMYCIN 500 MG TAB PO SCH (09:04)
[2021-01-11] MEDS: HYDROXYCHLOROQUINE SULFATE 200 MG TAB PO SCH ×3 (09:04→19:58)
[2021-01-11] MEDS: DOCUSATE 100 MG CAP PO SCH (09:04)
[2021-01-11] MEDS: ASPIRIN 81 MG PO SCH (09:04)
[2021-01-11] MEDS: CHOLECALCIFEROL 25 MCG (1000 IU) TABLET PO SCH (09:04)
[2021-01-11] MEDS: METOPROLOL TARTRATE 12.5 MG TAB PO SCH ×2 (09:05→19:58)
[2021-01-11] MEDS: PANTOPRAZOLE 40 MG TABLET PO SCH (09:05)
[2021-01-11] MEDS: LETROZOLE 2.5 MG TAB PO SCH (09:05)
[2021-01-11] MEDS: ACETAMINOPHEN TAB 325 MG TAB PO PRN ×2 (09:06→20:00)
[2021-01-11 09:11] LABS: African American GFR (CKD) >90 (>60 ml/min/1.73 sqM); Anion Gap 2 mmol/L; Blood Urea Nitrogen 17 mg/dL (7-17); Carbon Dioxide 38 mmol/L (22-30); Chloride 99 mmol/L (98-107); Glucose 216 mg/dL (74-99); Non-African American GFR(CKD) >90 (>60 ml/min/1.73 sqM); Potassium 4.3 mmol/L (3.5-5.1); Sodium 139 mmol/L (137-145)
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
[2021-01-11 09:34] LABS: HCT 42.6 % (34.0-46.0); HGB 13.3 gm/dL (11.4-16.0); Hypochromasia Moderate; MCH 31.1 pg (25.0-35.0); MCHC 31.2 g/dL (31.0-37.0); MCV 99.7 fL (80.0-100.0); Platelet Count 184 k/uL (150-450); RBC 4.28 m/uL (3.80-5.40); RDW 13.5 % (11.5-15.5); WBC 15.9 k/uL (3.8-10.6)
--- NOTE | 2021-01-11 11:35 | P.PN ---
Subjective Patient is a 65-year-old female with known history of COPD with FEV1 of 44% came in with comments of shortness of breath going on for 2 days along with cough and yellowish to whitish sputum production and some pressure like substernal chest pain. Patient denied any fever chills patient the denied any diaphoresis associated with this chest pain patient was wheezing coughing because of which patient is admitted for chest pain with cardiology consult and for COPD exacerbation. Pulmonary consultation. Patient is pleasant and azithromycin chest x-ray did not show pneumonia EKG did not show any acute ST-T wave changes, troponins were negative. Patient is feeling much better now compared to yesterday patient's d-dimer is negative and was 0.17 01/11/2021 Patient is doing much better patient says her shortness of breath improved patient is presently on 2 L of oxygen but still has significant wheezing because of which the patient is being discontinued on systemic steroids inhalational treatments. Constitutional: Denied any fatigue denied any fever. Cardio vascular: denied any chest pain, palpitations Gastrointestinal denied any nausea vomiting Pulmonary: As mentioned in the interval history Neurologic denied any new focal deficits All inpatient medications were reviewed and appropriate changes in these medications as dictated in the interval history and assessment and plan. PHYSICAL EXAMINATION: GENERAL: The patient is alert and oriented x3, not in any acute distress. Thin built female HEENT: Pupils are round and equally reacting to light. EOMI. No scleral icterus. No conjunctival pallor. Normocephalic, atraumatic. No pharyngeal erythema. No thyromegaly. CARDIOVASCULAR: S1 and S2 present. No murmurs, rubs, or gallops. PULMONARY: Mildly decreased air entry bilateral lung sewell minimal expiratory wheezing on exam ABDOMEN: Soft, nontender, nondistended, normoactive bowel sounds. No palpable organomegaly. MUSCULOSKELETAL: No joint swelling or deformity. EXTREMITIES: No cyanosis, clubbing, or pedal edema. NEUROLOGICAL: Gross neurological examination did not reveal any focal deficits. SKIN: No rashes. Assessment and plan Acute on chronic chronic hypercapnic and hypoxic respiratory failure secondary to COPD exacerbation patient will continue on systemic steroids inhalational treatments pulmonary evaluated the patient -History as above syndrome Chest pain rule out a concurrent syndromes. Chest pain is atypical was evaluated by cardiology intervention at this time -Left upper lobe pulmonary nodules which will be followed as an outpatient -Gastroesophageal reflux disease Leukocytosis reactive to COPD DVT prophylaxis: Subcutaneous heparin Objective - Vital Signs Vital signs: Vital Signs Temp 98.0 F 01/11/21 11:19 Pulse 74 01/11/21 11:19 Resp 20 01/11/21 11:19 BP 96/52 01/11/21 11:19 Pulse Ox 94 L 01/11/21 11:19 Intake & Output 01/10/21 01/11/21 01/11/21 18:59 06:59 18:59 Intake Total 720 237 240 Balance 720 237 240 Weight 46.3 kg Intake: Oral 720 237 240 Other: # Voids 1 1 - Labs CBC & Chem 7: 01/11/21 08:38 01/11/21 08:38 Labs: Abnormal Lab Results - Last 24 Hours (Table) 01/11/21 01/11/21 Range/Units 08:38 08:38 WBC 15.9 H (3.8-10.6) k/uL Carbon Dioxide 38 H (22-30) mmol/L Creatinine 0.42 L (0.52-1.04) mg/dL Glucose 216 H (74-99) mg/dL
[2021-01-11] MEDS ORDERED: IPRATROPIUM 0.5 MG/2.5 ML NEBU INHALATION SCH (12:00)
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
--- NOTE | 2021-01-11 14:51 | CDI ---
Documentation Clarification Form Date: 01/11/2021 02:34:09 PM From: Jessica Villa CCS, CCDS Admit Date: 01/09/2021 07:33:00 PM Patient Name: Franca Betts Visit Number: [id number] Discharge Date: ATTENTION: The Clinical Documentation Specialists (CDI) and [facility] Coding Staff appreciate your assistance in clarifying documentation. Please respond to the clarification below the line at the bottom and electronically sign. The CDI & [facility] Coding staff will review the response and follow-up if needed. Please note: Queries are made part of the Legal Health Record. If you have any questions, please contact the author of this message via ITS. Dr. Jim Wiley: Per the 01/10 H/P, the patient is a thin built female. Per the 01/10 Pulmonary Consult: Anorexia/Cachexia Syndrome is documented without further specificity. Based on this information and the findings below, is there an additional diagnosis that is clinically appropriate for this patient? History/Risk Factors per the 01/10 H/P: COPD on Home O2 2L atc, Sjorgen's Syndrome, GERD, Pneumonia, Breast Cancer. Former smoker. Per the 01/10 H/P Assessment: Chronic Hypoxic & Hypercapnic Respiratory Failure. Clinical Indicators: Presented to the ED on 01/09 with SOB & Chest Pain. ED Clinical Impression: Unstable Angina & COPD Exacerbation 01/09 VS: T 98.1, P 105, R 28 (sob, cough), BP 185/62, PO 84 4Lnc 01/09 LAB: WBC 18.1, Hct 49.5, Neut 16.4; Cl 96, CO2 32, Glucose 157, BNP 1590 (Total Protein & Albumin not done) 01/09 BMI: 18.1 Dietary not consulted. 01/09 Nursing Assessment: Consumed 25% meals, Up to bathroom w/assistance on standby, Fall precautions. Weight 101.5 lbs (standing scale) Weight 46 kg (bedscale) [place] Body Weight: 115.00 lbs Height 5 ft 3 in Treatment: Heart Healthy Diet, O2 2Lnc, BiPAP prn, INH Ventolin, Atrovent; IV Decadron, IV Heparin, IV Azithromycin, IV Solumedrol. Is there an additional diagnosis that is clinically appropriate for this patient? [ ] Mild Protein-Calorie Malnutrition [ ] Moderate Protein-Calorie Malnutrition [ ] Other condition, please specify [ ] Unable to Determine (Template Last Revised: August 2020) No malnutrition MTDD
[2021-01-11 14:59] VITALS: BMI 19.2
[2021-01-11] MEDS: methylPREDNISolone SOD SUCCI 40 MG/ML 1 ML VIAL IV SCH ×2 (15:43→22:50)
[2021-01-12 07:27] LABS: Glucose,Whole Blood 115 mg/dL (75-99)
[2021-01-12] MEDS: CALCIUM CARBONATE 500 MG CHEWABLE PO SCH (08:37)
[2021-01-12] MEDS: GABAPENTIN 300 MG CAP PO SCH (08:37)
[2021-01-12] MEDS: DOCUSATE 100 MG CAP PO SCH (08:37)
[2021-01-12] MEDS: buPROPion SR 100 MG TABLET.ER PO SCH (08:37)
[2021-01-12] MEDS: HEPARIN SODIUM,PORCINE/PF 5,000 UNIT/0.5 ML SYRINGE SQ SCH (08:37)
[2021-01-12] MEDS: AZITHROMYCIN 500 MG TAB PO SCH (08:37)
[2021-01-12] MEDS: CHOLECALCIFEROL 25 MCG (1000 IU) TABLET PO SCH (08:37)
[2021-01-12] MEDS: ASPIRIN 81 MG PO SCH (08:37)
[2021-01-12] MEDS: LETROZOLE 2.5 MG TAB PO SCH (08:38)
[2021-01-12] MEDS: PANTOPRAZOLE 40 MG TABLET PO SCH (08:38)
[2021-01-12] MEDS: HYDROXYCHLOROQUINE SULFATE 200 MG TAB PO SCH (08:38)
[2021-01-12] MEDS: METOPROLOL TARTRATE 12.5 MG TAB PO SCH (08:38)
[2021-01-12] MEDS: methylPREDNISolone SOD SUCCI 40 MG/ML 1 ML VIAL IV SCH (08:38)
[2021-01-12] MEDS: IPRATROPIUM-ALBUTEROL 3 ML NEB INHALATION SCH ×2 (08:58→11:47)
[2021-01-12 11:07] VITALS: BP 123/71; TEMP 98.1
[2021-01-12 11:49] VITALS: RESP 18
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
[2021-01-12 13:29] VITALS: PULSE 87
--- NOTE | 2021-01-12 14:35 | P.DS ---
Providers Date of admission: 01/09/21 19:33 Attending physician: Celsa Saha MD Consults: 01/09/21 19:33 Consult Physician Routine Consulting Provider: Doyle De La Cruz Reason/Comments: copd exacerbation Do you want consulting provider notified?: Yes Primary care physician: Jaxon Osullivan [facility] Course: Final diagnoses Acute on chronic chronic hypercapnic and hypoxic respiratory failure secondary to COPD exacerbation -History as above -Chest pain rule out acute coronary syndromes. Chest pain is atypical was evaluated by cardiology, started on toprol, no further intervention -Left upper lobe pulmonary nodules which will be followed as an outpatient -Gastroesophageal reflux disease, cont on protonix Leukocytosis reactive to COPD DVT prophylaxis: Subcutaneous heparin Discharge disposition Patient is discharged home and is to follow-up with pulmonary services in 7-10 days. Patient will complete a oral course of Zithromax. Patient will be started on a steroid taper. Patient can continues to wear oxygen, she is back to baseline at 2 L nasal cannula, patient states that she wears 2L NC at home. Patient also Dr. Ascencio office, and follow-up after discharge. Patient states that she has help at home from family and friends. Patient feels that she is ready for discharge today. Hospital course This is a pleasant 65 year old female who has a known history of COPD with a FEV1 of 44%, patient came into the ER with symptoms of shortness of breath that have been going on for 2 days, along with cough and yellow to whitish sputum production and some pressure likely substernal chest pain. Patient 79 fever or chills, diaphoresis associated with this chest pain.. Patient was wheezing and coughing, patient was admitted for chest pain with cardiology consult and for COPD exacerbation with a pulmonary consultation. Patient was started on oral Zithromax, chest x-ray was negative for pneumonia. EKG did not show any acute ST to T wave changes, troponins were negative. Patient is feeling much better today, wheezing is much improved, cough is improving. Patient's d-dimer is negative at 0.17. Patient was started on IV steroids, and will be discharged home on a steroid taper. To follow up with pulmonary service as outpatient. Echocardiogram revealed an ejection fraction of 50-55%, mild mitral regurgitation, mild tricuspid regurgitation. There is a trivial pericardial effusion present. Cardiology will continue patient on current cardiac medications, continue all current cardiac medications. Patient's white blood cell count was elevated at 15.9 today on 01/12, improved from admission of 18.1. Will follow up outpatient. Patient will continue a course of oral antibiotics [id number] mg po daily Zithromax for a total of 5 days. Vital signs have remained stable this admission, temperature 98.1, heart rate sinus rhythm 80s, blood pressure 123/71, 94% on 2 L nasal cannula. 01/12/2021 Patient is evaluated today sleep at the bedside on 2 L nasal cannula. Patient has a chronic history of COPD, and wears nasal cannula oxygen at home. Patient states that she feels back to her baseline. Patient does have some mild accessory wheezing, much improved as compared to yesterday. Patient's family had brought her home COPD medications. Patient will be discharged today with a stable blood pressure, denies chest pain, shortness of breath. She states that her cough is much improved. Patient states that she does have a chronic congested cough due to her history of smoking and COPD. Patient will be discharged home on antibiotics and a steroid taper and will follow-up closely with pulmonary cardiology and primary care services. Patient reports that she is ambulating, and tolerating a diet. She denies any other further needs on discharge. Please see medication reconciliation for list of current medications. Patient Condition at Discharge: Fair Plan - Discharge Summary Discharge Rx Participant: No New Discharge Prescriptions: New Metoprolol Tartrate [Lopressor] 12.5 mg PO BID #60 tab Azithromycin [Zithromax] 500 mg PO DAILY 1 Days #3 tab Aspirin [Adult Low Dose Aspirin EC] 81 mg PO DAILY #30 tab methylPREDNISolone Dose Pack [Medrol Dose Pack] 10 mg PO DIRECTED #40 tab Continue Pantoprazole Sodium [Protonix] 40 mg PO DAILY Hydroxychloroquine Sulfate [Plaquenil] 200 mg PO BID Fluticasone/Salmeterol [Advair 500-50 Diskus] 1 puff INHALATION RT-BID Gabapentin [Neurontin] 300 mg PO BID Levalbuterol Hfa Inhaler [Xopenex Hfa Inhaler] 1 puff INHALATION RT-Q6H PRN PRN Reason: Shortness Of Breath Calcium Carbonate [Calcium] 1,200 mg PO DAILY Cholecalciferol (Vitamin D3) [Vitamin D3] 2,000 mcg PO DAILY Letrozole [Femara] 2.5 mg PO DAILY Tiotropium 18 Mcg/Puff [Spiriva] 1 puff INHALATION RT-DAILY Albuterol Nebulized [Ventolin Nebulized] 2.5 mg INHALATION RT-QID PRN PRN Reason: Shortness Of Breath Docusate [Colace] 100 mg PO DAILY buPROPion HCL [Wellbutrin SR] 100 mg PO BID Discontinued predniSONE 10 mg PO DAILY PRN PRN Reason: Inflammation Discharge Medication List Hydroxychloroquine Sulfate [Plaquenil] 200 mg PO BID 03/29/15 [History] Pantoprazole Sodium [Protonix] 40 mg PO DAILY 03/29/15 [History] Fluticasone/Salmeterol [Advair 500-50 Diskus] 1 puff INHALATION RT-BID 05/31/16 [History] Gabapentin [Neurontin] 300 mg PO BID 04/07/19 [History] Levalbuterol Hfa Inhaler [Xopenex Hfa Inhaler] 1 puff INHALATION RT-Q6H PRN 04/07/19 [History] Calcium Carbonate [Calcium] 1,200 mg PO DAILY 04/29/19 [History] Cholecalciferol (Vitamin D3) [Vitamin D3] 2,000 mcg PO DAILY 05/23/19 [History] Letrozole [Femara] 2.5 mg PO DAILY 10/23/19 [History] Tiotropium 18 Mcg/Puff [Spiriva] 1 puff INHALATION RT-DAILY 10/30/19 [History] Albuterol Nebulized [Ventolin Nebulized] 2.5 mg INHALATION RT-QID PRN 11/04/20 [History] Docusate [Colace] 100 mg PO DAILY 01/09/21 [History] buPROPion HCL [Wellbutrin SR] 100 mg PO BID 01/09/21 [History] Aspirin [Adult Low Dose Aspirin EC] 81 mg PO DAILY #30 tab 01/12/21 [Rx] Azithromycin [Zithromax] 500 mg PO DAILY 1 Days #3 tab 01/12/21 [Rx] Metoprolol Tartrate [Lopressor] 12.5 mg PO BID #60 tab 01/12/21 [Rx] methylPREDNISolone Dose Pack [Medrol Dose Pack] 10 mg PO DIRECTED #40 tab 01/12/21 [Rx] Follow up Appointment(s)/Referral(s): Doyle De La Cruz DO [Doctor of Osteopathic Medicine] - 1 Week (office closed for lunch, pt to call and make own appt) Jaxon Osullivan DO [Primary Care Provider] - 1-2 days (Appt with DIRECTOR OF RESIDENTIAL SERVICES on SundayJan 14, 10:30am) Rhonda Ascencio MD [STAFF PHYSICIAN] - 1 Week (Office closed for lunch, pt to call and make own appt) Activity/Diet/Wound Care/Special Instructions: Continue cardiac diet Follow-up with pulmonary, cardiology, PCP Patient discharged home - patient currently wears 2 L nasal cannula at home. Discharge Disposition: HOME SELF-CARE
== END 2021-01-12 14:26 | disposition home or self-care (01) | DRG 190 ==
LOC: EC 17:52 → 3SCARD 19:33
PROVIDERS: ADMIT Internal Medicine; ATTEND Internal Medicine
DX: J44.1 Chronic obstructive pulmonary disease with (acute) exacerbation (principal); J96.22 Acute and chronic respiratory failure with hypercapnia; J96.21 Acute and chronic respiratory failure with hypoxia; R64 Cachexia; J98.11 Atelectasis; K21.9 Gastro-esophageal reflux disease without esophagitis; Z87.891 Personal history of nicotine dependence; Z85.3 Personal history of malignant neoplasm of breast; Z90.710 Acquired absence of both cervix and uterus; Z88.0 Allergy status to penicillin; M35.00 Sjogren syndrome, unspecified; D72.829 Elevated white blood cell count, unspecified; Z99.81 Dependence on supplemental oxygen; R07.2 Precordial pain; Z79.811 Long term (current) use of aromatase inhibitors; Z79.899 Other long term (current) drug therapy
CPT/HCPCS: 36415; 71045; 80048; 80061; 83735; 83880; 84484; 85025; 85027; 85379; 85610; 85730; 93005; 93306; 94640; 94660; 94760; 96374; 96375; 99291

== ENCOUNTER → 2021-02-04 | Outpatient (CLI) | payer MEDICARE, BC ==
[2021-02-04 11:26] VITALS: BP 127/58; PULSE 68; RESP 12; TEMP 97.9
--- NOTE | 2021-02-04 11:47 | P.PN ---
Subjective Progress Note Date: 02/04/21 Principal diagnosis: stage IA left breast cancer Pauline is a 65 year old white female status post a left bresat lumpectomy and SNB on 07-08-19. All margins were negative. The lymph node was negative. She did have radiation therapy for 4 weeks. She is presently taking anastrozole with no problems. She did not have any chemotherapy. She has not noted any new lumps masses or nodules of concern. The patient following her second COVID injection on the left side developed chest wall tenderness and swelling. Extensive workup including evaluation by cardiology, ultrasound, and chest x-ray did not reveal any cause for her. She continues to have tenderness at this site, it has not gotten any worse. She underwent a left breast ultrasound on [phone] and it was recommended follow-up diagnostic mammogram of the left breast in April be performed. She had a bilateral mammogram on which was benign BIRADS 2. Past surgical history: Left breast lumpectomy and sentinel node biopsy Carpal tunnel Hysterectomy ovaries were not removed. 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 Sojrens syndrome Social HItory: nicotine: none alcohol: noen drugs: none Objective - Vital Signs Vital signs: Vital Signs Temp 97.9 F 02/04/21 11:03 Pulse 68 02/04/21 11:03 Resp 12 02/04/21 11:03 BP 127/58 02/04/21 11:03 Pulse Ox 95 02/04/21 11:03 Intake & Output 02/03/21 02/04/21 02/04/21 18:59 06:59 18:59 Weight 48.988 kg - Exam BMI 19.1 - Constitutional General appearance: Present: cooperative - EENT Eyes: Present: EOMI ENT: Present: hearing grossly normal - Neck Neck: Present: normal ROM - Respiratory Respiratory: bilateral: CTA - Cardiovascular Heart sounds: normal: S1, S2 - Integumentary Integumentary: Present: normal turgor - Musculoskeletal Musculoskeletal: Present: gait normal - Psychiatric Psychiatric: Present: A&O x's 3, appropriate affect, intact judgment & insight - Additional findings Additional findings: Breast Exam: BRA: 34A inspection: grade 2 ptosis bilateral palpation: Right breast: Multi-positional exam fibrocystic changes no dominant masses or nodules of concern Right axilla: No adenopathy of concern Left breast: Breast is somewhat swollen and has postop radiation and surgical changes is tender to palpation although there are no dominant masses or nodules of concern Left axilla: No adenopathy of concern Assessment and Plan Assessment: Impression: 1. Patient's stage Ia left breast cancer treated with lumpectomy radiation therapy and sentinel node biopsy, patient is presently on anastrozole with no evidence of any recurrent disease 2. Persistent tenderness and left breast and left chest wall which occurred following: Vaccination this does seem to have improved somewhat Plan: 1. Bilateral mammogram in 6 months with physician exam at that time 2. Continue anastrozole/continue follow-up with medical oncology Cc: Dr. Osullivan
== END ==
LOC: WWCWWP 10:50
PROVIDERS: ATTEND Surgery
DX: N64.4 Mastodynia (principal); Z85.3 Personal history of malignant neoplasm of breast; Z79.811 Long term (current) use of aromatase inhibitors; Z92.3 Personal history of irradiation; Z98.890 Other specified postprocedural states

== ENCOUNTER → 2021-03-18 | Outpatient (CLI) | payer MEDICARE, BC ==
[2021-03-18 19:15] LABS: African American GFR (CKD) 109.3 (60.0-200.0); Anion Gap 13.6 mmol/L (4.00-12.00); BUN/Creat Ratio 13.83 Ratio (12.00-20.00); Blood Urea Nitrogen 8.3 mg/dL (9.0-27.0); Calcium 9.4 mg/dL (8.7-10.3); Carbon Dioxide 26.4 mmol/L (21.6-31.8); Non-African American GFR(CKD) 94.3 (60.0-200.0); Potassium 4.5 mmol/L (3.5-5.5)
== END | disposition home or self-care (01) ==
LOC: LABWHC1 09:11
PROVIDERS: ATTEND Internal Medicine Critical Care Medicine
DX: Z01.812 Encounter for preprocedural laboratory examination (principal)
CPT/HCPCS: 36415; 80048

== ENCOUNTER → 2021-05-09 | Outpatient (CLI) | payer MEDICARE, BC ==
--- NOTE | 2021-05-09 09:05 | XR ---
"EXAMINATION TYPE: XR chest 2V DATE OF EXAM: 05/09/2021 COMPARISON: Chest x-ray 01/09/2021, CT chest 12/31/2020 HISTORY: Pleurisy TECHNIQUE: Frontal and lateral views of the chest are obtained. FINDINGS: Postop changes are noted to the left breast as on prior. Patient is rotated. Aorta is dens e. Prominent right lung volume is consistent with underlying COPD, suspect there is some volume loss in the left hemithorax, portions of the left heart border, infrahilar region are obscured. Pleural th ickening and lung nodule, tracheal soft tissue noted on the chest CT are not apparent on plain film. Superior endplate depressions within thoracic vertebral bodies are stable compared to prior CT. There are overlying artifacts. IMPRESSION: Suspected left upper lobe atelectasis, pneumonia, consider chest CT for better evaluatio n. There is underlying emphysema. Postop changes and additional findings above. A Yellow level critical message alert has been initiated for Jaxon Osullivan DO via the [employer] | Critical Results System on 05/09/2021 9:01 AM. This message alert has been sent to Jaxon duval DO via the preferences provided by the clinician for the receipt of Radiology Critical Findings. Message ID [id number]."
== END | disposition home or self-care (01) ==
LOC: RADXRMAIN 08:01
PROVIDERS: ATTEND Family Medicine
DX: J43.9 Emphysema, unspecified (principal)
CPT/HCPCS: 71046

== ENCOUNTER → 2021-06-15 | Outpatient (CLI) | payer MEDICARE, BC | END | disposition home or self-care (01) | LOC: LABWHC1 12:15 | PROVIDERS: ATTEND Family Medicine | DX: Z20.822 Contact with and (suspected) exposure to COVID-19 (principal); J06.9 Acute upper respiratory infection, unspecified | CPT/HCPCS: U0003; C9803; U0005 ==

== ENCOUNTER → 2021-06-27 | Outpatient (CLI) | payer MEDICARE, BC ==
--- NOTE | 2021-06-28 08:08 | MM ---
Reason for exam: additional evaluation requested from prior study. Last mammogram was performed 1 year ago. History: Patient is postmenopausal and has history of breast cancer at age 64. Family history of breast cancer in mother at age 56. Lumpectomy of the left breast, 2019. Radiation therapy of the left breast, 2019. Taking antineoplastic for 2 years beginning at age 64. Physical Findings: Nurse did not find any significant physical abnormalities on exam. MG 3D Diag Mammo W/Cad ELLIE Bilateral CC and MLO view(s) were taken. Prior study comparison: June 24, 2020, bilateral MG 3d diag mammo w/cad ELLIE. December 26, 2017, mammogram. The breast tissue is heterogeneously dense. This may lower the sensitivity of mammography. Finding: There are typically benign vascular, dystrophic calcifications in both breasts. There is no discrete abnormality. Stable left skin thickening, post treatment changes. These results were verbally communicated with the patient and result sheet given to the patient on 06/27/21. ASSESSMENT: Benign, BI-RAD 2 RECOMMENDATION: Follow-up diagnostic mammogram of both breasts in 1 year.
== END | disposition home or self-care (01) ==
LOC: RADMAMWWP 13:39
PROVIDERS: ATTEND Surgery
DX: R92.1 Mammographic calcification found on diagnostic imaging of breast (principal); Z80.3 Family history of malignant neoplasm of breast; Z85.3 Personal history of malignant neoplasm of breast; Z78.0 Asymptomatic menopausal state
CPT/HCPCS: 77066; G0279; 77062

== ENCOUNTER → 2021-07-01 | Outpatient (CLI) | payer MEDICARE, BC ==
[2021-07-01 14:08] VITALS: BP 131/71; PULSE 85; RESP 16; TEMP 98
--- NOTE | 2021-07-01 14:57 | P.PN ---
Subjective Progress Note Date: 07/01/21 Principal diagnosis: stage IA left breast cancer Pauline is a 66 year old white female status post a left breast lumpectomy and SNB on 07-08-19. All margins were negative. The lymph node was negative. She did have radiation therapy for 4 weeks. She is presently taking anastrozole with no problems. She did not have any chemotherapy. She has not noted any new lumps masses or nodules of concern. The patient following her second COVID injection on the left side developed chest wall tenderness and swelling. Extensive workup including evaluation by cardiology, ultrasound, and chest x-ray did not reveal any cause for this. She continues to have tenderness at this site, it has not gotten any worse. She underwent a left breast ultrasound on and it was recommended follow- up diagnostic mammogram of the left breast in April be performed. She had a bilateral mammogram on which was benign BIRADS 2. She had a bilateral mammogram on 06-27-21 which was BIRAD 2 She is not complaining of any new lumps masses or nodules in either breast. She continues to have tenderness in the left breast which occurred after her second Covid injection. Past surgical history: Left breast lumpectomy and sentinel node biopsy Carpal tunnel Hysterectomy ovaries were not removed. 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 Sojrens syndrome Social HItory: nicotine: none alcohol: noen drugs: none Objective - Vital Signs Vital signs: Vital Signs Temp 98.0 F 07/01/21 14:01 Pulse 85 07/01/21 14:01 Resp 16 07/01/21 14:01 BP 131/71 07/01/21 14:01 Pulse Ox Intake & Output 06/30/21 07/01/21 07/01/21 18:59 06:59 18:59 Weight 48.988 kg - Constitutional General appearance: Present: cooperative - EENT Eyes: Present: EOMI - Neck Neck: Present: normal ROM - Respiratory Respiratory: bilateral: CTA - Cardiovascular Rhythm: regular Heart sounds: normal: S1, S2 - Gastrointestinal General gastrointestinal: Present: soft - Integumentary Integumentary: Present: normal turgor - Musculoskeletal Musculoskeletal: Present: gait normal - Psychiatric Psychiatric: Present: A&O x's 3, appropriate affect, intact judgment & insight - Additional findings Additional findings: Breast examination: Bra: 34B inspection: Left breast is free within the right breast, bilateral grade 2 ptosis, left breast well-healed scar and radiation changes Palpation: Right breast: Multi-positional exam fibrocystic changes no dominant masses or nodules of concern Right axilla: No adenopathy of concern Left breast: Multi-positional exam postop and radiation changes, it is tender to palpation we suspect there is some inflammation temporarily related to COVID vaccination Left axilla: No adenopathy of concern Assessment and Plan Assessment: Impression: 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 Osullivan
== END ==
LOC: WWCWWP 13:22
PROVIDERS: ATTEND Surgery
DX: N63.0 Unspecified lump in unspecified breast (principal); M35.00 Sjogren syndrome, unspecified; Z85.3 Personal history of malignant neoplasm of breast; J44.9 Chronic obstructive pulmonary disease, unspecified; Z99.81 Dependence on supplemental oxygen; Z98.890 Other specified postprocedural states; Z79.811 Long term (current) use of aromatase inhibitors; Z91.018 Allergy to other foods; Z91.040 Latex allergy status; Z88.1 Allergy status to other antibiotic agents; Z88.0 Allergy status to penicillin; Z88.5 Allergy status to narcotic agent; Z88.8 Allergy status to other drugs, medicaments and biological substances; Z87.891 Personal history of nicotine dependence

== ENCOUNTER 2021-07-27 05:57 | Inpatient (IN) | payer MEDICARE, BC ==
[2021-07-27] MEDS ORDERED: ALPRAZolam 0.25 MG TAB PO PRN (05:59)
[2021-07-27] MEDS ORDERED: SODIUM CHLORIDE 0.9% 1,000 ML in EMPTY BAG 1 BAG IV ONE (05:59)
[2021-07-27] MEDS ORDERED: ASPIRIN 325 MG TAB PO PRN (05:59)
[2021-07-27 06:55] LABS: Basophils % (A) 1 %; Eosinophils % (A) 0 %; HCT 42.5 % (34.0-46.0); HGB 13.6 gm/dL (11.4-16.0); Lymphocytes # (A) 0.5 k/uL (1.0-4.8); Lymphocytes % (A) 14 %; MCH 30.6 pg (25.0-35.0); MCV 95.5 fL (80.0-100.0); Mean Platelet Volume 7.7; Monocytes # (A) 0.2 k/uL (0-1.0); Monocytes % (A) 7 %; Neutrophils # (A) 2.7 k/uL (1.3-7.7); Neutrophils % (A) 77 %; Platelet Count 194 k/uL (150-450); RBC 4.45 m/uL (3.80-5.40); RDW 13.6 % (11.5-15.5); WBC 3.5 k/uL (3.8-10.6)
[2021-07-27 07:15] LABS: African American GFR (CKD) >90 (>60 ml/min/1.73 sqM); Anion Gap 10 mmol/L; Blood Urea Nitrogen 9 mg/dL (7-17); Calcium 9.9 mg/dL (8.4-10.2); Carbon Dioxide 28 mmol/L (22-30); Chloride 103 mmol/L (98-107); Glucose 136 mg/dL (74-99); Non-African American GFR(CKD) >90 (>60 ml/min/1.73 sqM); Potassium 3.9 mmol/L (3.5-5.1); Sodium 141 mmol/L (137-145)
[2021-07-27] MEDS ORDERED: MIDAZOLAM 2 MG/2 ML VIAL IV ONE (09:43)
[2021-07-27] MEDS ORDERED: LIDOCAINE 1% INJ 10MG/ML (20 ML MDV) SQ ONE ×2 (09:46→15:19)
[2021-07-27] MEDS ORDERED: SODIUM CHLORIDE 0.9% 500 ML 500 ML with niCARdipine 6.25 MG, NITROGLYCERIN-D5W PMX 0.05... IV ONE ×8 (10:11→12:00)
[2021-07-27] MEDS: MIDAZOLAM 2 MG/2 ML VIAL IV ONE ×2 (10:16→10:59)
[2021-07-27] MEDS: HEPARIN SODIUM 1,000 UN/ML (10ML VL) IV ONE ×2 (10:23→11:48)
[2021-07-27] MEDS: fentaNYL (PF) 50 MCG/ML 2 ML AMP IV ONE ×3 (10:25→13:21)
[2021-07-27] MEDS ORDERED: IOPAMIDOL-250 100ML BTL INTRAARTER ONE ×3 (10:54→16:48)
[2021-07-27] MEDS ORDERED: CLOPIDOGREL 75 MG TAB PO ONE (13:18)
[2021-07-27] MEDS ORDERED: ONDANSETRON 4 MG/2 ML VIAL IVP ONE ×2 (13:27→15:20)
[2021-07-27] MEDS ORDERED: ALBUTEROL NEBULIZED 2.5 MG/3 ML INHALATION PRN (13:41)
[2021-07-27] MEDS ORDERED: NON FORMULARY DRUG (Levalbuterol Hfa Inhaler 200 PUFF/9 GM Inhaler) INHALATION PRN (13:41)
[2021-07-27] MEDS ORDERED: NALOXONE 0.4 MG/ML 1 ML VIAL IVP PRN ×2 (13:42→17:01)
[2021-07-27] MEDS ORDERED: SODIUM CHLORIDE 0.9% 1,000 ML in EMPTY BAG 1 BAG IV SCH ×2 (13:45→17:15)
--- NOTE | 2021-07-27 13:58 | P.PCN ---
Date of Procedure: 07/27/21 Operative Findings: AN ANGIOGRAM AND PERCUTANEOUS PERIPHERAL INTERVENTION PERFORMING PHYSICIAN: Mckinley Stewart MD PROCEDURE PERFORMED: Successful stenting of the left common iliac artery Successful stenting of the left external iliac artery An atherectomy of the left common femoral artery Successful balloon angioplasty of the left common femoral artery Intravascular ultrasound of the left common femoral artery An abdominal aortogram Bilateral lower extremities runoff Ultrasound-guided access of the right common femoral artery and left anterior tibial artery INDICATION: Bilateral lower extremities intermittent claudication worse on the left side on the right side COMPLICATION: None LEVEL OF SEDATION: Moderate was sedation length of 215 minutes. The case is long and extensive APPROACH: Right common femoral artery and left anterior tibial artery PROCEDURE DESCRIPTION: After obtaining informed consent and explaining the procedure benefits, risks, and complications, the patient was brought to the cardiac laboratory chemist. The right groin was prepped and draped in sterile fashion. The right common femoral artery was cannulated using micropuncture technique, under ultrasound guidance. A micropuncture wire was advanced, and the micropuncture sheath was advanced over the wire, then the micropuncture sheath was exchanged over an 0.35 wire into a 5-Pakistani sheath dilator assembly then the wire and dilator were removed and sheath was flushed. We did an abdominal aortogram and bilateral lower extremities runoff using 5- Pakistani pigtail catheter using a power injection. The catheter was initially placed at the level of the renal arteries, and it was pulled into above the bifurcation of the aorta into right and left common iliac arteries. After that I did intervene on the left. The procedure was completed and there was no complications. SELECTIVE PERIPHERAL ANGIOGRAM: The abdominal aorta: Calcified was mild to moderate diffuse disease The common iliac arteries: The right common iliac artery appeared to have mild disease only. The left common iliac artery appears to have a tight lesion in the range of 70-80% The external iliac arteries: The right and left external iliac arteries are heavily calcified with severe disease bilaterally. The internal iliac arteries: Both internal iliac arteries are patent The common femoral arteries: Right common femoral artery appeared to have an intermediate lesion in the left common femoral artery appeared to have also intermediate lesion Superficial femoral arteries: In the right SFA appears to have mild disease only. The left SFA is occluded by the ostium and reconstitutes distally Popliteal arteries: The right popliteal appeared to have mild disease only and the left popliteal appeared to have mild disease only Below the knees: There are 3 vessels run off below the knee bilaterally INSIDE SALES OF THE LEFT LEG Anticoagulation was initiated using heparin with continuous ACT monitoring throughout the case. Subsequently I accessed the left anterior tibial artery micropuncture needle under ultrasound guidance. A micropuncture wire passed easily then I placed a slender 6/5-Pakistani sheath at the left anterior tibial artery. Attempting crossing the PLATE FURNACE OPERATOR of the left SFA was unsuccessful in retrograde technique. At that point I decided to go in antegrade technique. I did selective left profunda using 035 stiff Glidewire with a backup support of 5-Pakistani rim catheter. After that I did exchange my 11 cm 6-Pakistani sheath into 70 cm 6-Pakistani sheath using 035 super core wire with a backup support of 5- Pakistani rim catheter. The sheath was advanced all the way to the proximal left common femoral artery. Attempting crossing the PLATE FURNACE OPERATOR in antegrade technique was also unsuccessful. At that point and because the left common femoral artery was looking worse I decided to the rectum eyes at and 2 balloon angioplasties initiated IVUS on it and that showed eccentric plaque with was 6 mm. I did successful balloon angioplasty of the left common femoral artery using 6 mm chocolate balloon with an excellent angiographic results. Before the angioplasty I performed atherectomy using the orbital atherectomy from I After that deployed stent in the left external iliac artery and stent in the left common iliac artery. In the left external iliac artery I deployed a 6 x 18 mm self-expandable stent and in the left common iliac artery I deployed 7 x 57 mm balloon expandable stents. The following angiogram showed excellent angiographic results. After that I did exchange my long sheath into short sheath using 035 stiff glide wire. I didn't find any selective right common femoral artery angiogram which showed normal flow in the right common femoral artery which showed that the flow was a slightly better after exchanged my sheath into a 5-Pakistani sheath. I at that point decided to watch the patient. POSTPROCEDURE MANAGEMENT: Dual antiplatelet therapy Aggressive cholesterol control Risk factors modification Follow-up with the patient
--- NOTE | 2021-07-27 14:03 | IR ---
EXAMINATION TYPE: IR stent intravas non coronary DATE OF EXAM: 07/27/2021 COMPARISON: NONE HISTORY: Fluoroscopy time. Fluoroscopy was provided to the referring clinician.
[2021-07-27] MEDS ORDERED: VERAPAMIL 2.5 MG/ML 2 ML AMP ONE (15:01)
[2021-07-27] MEDS ORDERED: LIDOCAINE 1% INJ 10MG/ML (20 ML MDV) ONE (15:01)
[2021-07-27] MEDS ORDERED: ONDANSETRON 4 MG/2 ML VIAL ONE (15:07)
[2021-07-27] MEDS ORDERED: VERAPAMIL SYRINGE (5 MG/10 ML) INTRAARTER ONE (15:25)
[2021-07-27] MEDS ORDERED: IV FLUID CONTINUATION 400 ML IV ONE (15:32)
[2021-07-27] MEDS ORDERED: HYDROmorphone 1 MG/ML 1 ML SYRINGE IVP ONE (15:36)
[2021-07-27] MEDS ORDERED: PROTAMINE SULFATE 10 MG/ML 5 ML VIAL IV ONE (16:26)
[2021-07-27] MEDS: PROTAMINE SULFATE 10 MG/ML 5 ML VIAL IV ONE ×2 (16:30→16:39)
--- NOTE | 2021-07-27 17:09 | P.PCN ---
Date of Procedure: 07/27/21 Operative Findings: PERCUTANEOUS PERIPHERAL INTERVENTION Performing physician Mckinley Stewart M.D. Procedure performed #1 successful stenting of the right external iliac artery #2 successful stenting of the right common iliac artery #3 successful balloon angioplasty of the right common femoral artery #4 selective angiogram of the right common and right external and right common femoral artery Indication Acute vessel closure Approach Right radial approach Complications None Level of sedation Moderate with a sedation time of 100 minutes Procedure description After obtaining an informed consent the patient was brought to the cardiac cathode builder. Right radial artery was cannulated using micropuncture technique, the micro- puncture wire passed easily then I placed initially a 6-Egyptian 11 cm sheath at the right radial artery. After that I did advanced an 035 stiff Glidewire under fluoroscopy guidance all the way to the descending aorta. Subsequent did exchange my 11 cm sheath into 110 cm 6-Egyptian sheath over 035 stiff glide wire. The sheath was advanced all the way to the distal aorta and aortic bifurcation. Subsequently the wire was advanced to the right common iliac artery and subsequently the right common femoral artery and into the right SFA. Angiogram performed and revealed occluded right external iliac artery and severe disease involving the right common iliac artery was possible dissection. I stented the right common iliac artery using 7 x 59 mm balloon expandable stent and the right external iliac artery using 6 x 100 mm self-expandable stents. The following angiogram showed an excellent angiographic results for both the right common and right external iliac artery about there was an oozing coming from the right common femoral artery which I was able to tamponade and using 6 m balloon with adjunctive use of protamine. Finally I was able to achieve good flow and no bleeding from the right common femoral artery. Finally I pulled the sheath from the right radial artery and I placed a TR band. The procedure was completed without any complication Postprocedure management #1 dual antiplatelet therapy #2 aggressive cholesterol control #3 risk factors modification #4 follow-up with the patient
[2021-07-27 18:54] LABS: Basophils % (A) 0 %; Eosinophils % (A) 0 %; HCT 34.5 % (34.0-46.0); HGB 10.8 gm/dL (11.4-16.0); Hypochromasia Moderate; Lymphocytes # (A) 0.5 k/uL (1.0-4.8); Lymphocytes % (A) 5 %; MCH 30.6 pg (25.0-35.0); MCHC 31.2 g/dL (31.0-37.0); Mean Platelet Volume 7.5; Monocytes # (A) 0.5 k/uL (0-1.0); Monocytes % (A) 4 %; Neutrophils % (A) 89 %; Platelet Count 154 k/uL (150-450); RBC 3.52 m/uL (3.80-5.40); RDW 14.4 % (11.5-15.5); WBC 10.1 k/uL (3.8-10.6)
[2021-07-27] MEDS: SYMBICORT 160-4.5 MCG INHALER INHALATION SCH (19:18)
[2021-07-27] MEDS: METOPROLOL TARTRATE 12.5 MG TAB PO SCH (20:26)
[2021-07-27] MEDS: ONDANSETRON 4 MG/2 ML VIAL IVP PRN (20:30)
[2021-07-27] MEDS: ATORVASTATIN 80 MG TAB PO SCH (22:45)
[2021-07-27] MEDS: buPROPion SR 100 MG TABLET.ER PO SCH (22:45)
[2021-07-27] MEDS: GABAPENTIN 300 MG CAP PO SCH (22:45)
[2021-07-27] MEDS: HYDROXYCHLOROQUINE SULFATE 200 MG TAB PO SCH (22:46)
[2021-07-28 05:56] LABS: Basophils % (A) 0 %; Eosinophils % (A) 0 %; HCT 34.7 % (34.0-46.0); HGB 10.9 gm/dL (11.4-16.0); Hypochromasia Moderate; Lymphocytes # (A) 0.4 k/uL (1.0-4.8); Lymphocytes % (A) 4 %; MCH 30.5 pg (25.0-35.0); MCHC 31.3 g/dL (31.0-37.0); MCV 97.5 fL (80.0-100.0); Mean Platelet Volume 8.4; Monocytes # (A) 0.6 k/uL (0-1.0); Monocytes % (A) 6 %; Neutrophils # (A) 9.2 k/uL (1.3-7.7); Neutrophils % (A) 89 %; Platelet Count 146 k/uL (150-450); RBC 3.56 m/uL (3.80-5.40); RDW 13.9 % (11.5-15.5); WBC 10.4 k/uL (3.8-10.6)
[2021-07-28 06:14] LABS: African American GFR (CKD) >90 (>60 ml/min/1.73 sqM); Anion Gap 4 mmol/L; Blood Urea Nitrogen 17 mg/dL (7-17); Calcium 8.5 mg/dL (8.4-10.2); Carbon Dioxide 23 mmol/L (22-30); Chloride 111 mmol/L (98-107); Glucose 101 mg/dL (74-99); Non-African American GFR(CKD) >90 (>60 ml/min/1.73 sqM); Potassium 4.1 mmol/L (3.5-5.1); Sodium 138 mmol/L (137-145)
[2021-07-28] MEDS: SYMBICORT 160-4.5 MCG INHALER INHALATION SCH ×2 (07:53→19:43)
[2021-07-28] MEDS ORDERED: ALBUTEROL HFA INHALER INHALATION PRN (07:58)
[2021-07-28] MEDS: TIOTROPIUM 2.5 MCG INHALER INHALATION SCH (07:59)
[2021-07-28] MEDS ORDERED: IPRATROPIUM 0.5 MG/2.5 ML NEBU INHALATION SCH (08:00)
--- NOTE | 2021-07-28 08:21 | IR ---
Fluoroscopy HISTORY: Peripheral vascular occlusive disease, pain 22.1 minutes fluoroscopy time supplied to the referring clinician. 159 intraoperative C-arm images d ocument the procedure. See dictated report from cardiology.
[2021-07-28] MEDS: ONDANSETRON 4 MG/2 ML VIAL IVP PRN (08:35)
--- NOTE | 2021-07-28 08:49 | P.PN ---
Subjective Progress Note Date: 07/28/21 Principal diagnosis: Peripheral arterial disease The patient is a pleasant 66-year-old patient with a past medical history significant for lower extremities peripheral tear disease was experiencing bilateral lower extremities discomfort worse on the left side than the right side. She underwent yesterday an abdominal aortogram and bilateral lower extremities runoff which revealed severe bilateral aortoiliac disease and occluded left SFA. She underwent successful stenting of the left iliac with successful balloon angioplasty along with atherectomy of the left femoral artery with a good angiographic results by the end and without any complication. Attempted to open the left SFA was unsuccessful at that point. The procedure was performed from right groin approach and left pedal approach. The patient subsequently was transferred to the extended stay units. After that he lost the pulse in the right femoral artery and there is no pedal signal on the right side. For that reason the patient was brought again to the cardiac manager cardiac cath where it came from right radial approach and I did angiogram which revealed occluded right iliac and also a leak coming from the right common femoral artery. I did successful opening the right iliac replacing 1 balloon expandable stent 1 self-expandable stent with an excellent angiographic results. The leak from the right femoral artery continues and for that reason I did voodoo had of the right femoral artery using 6 mm balloon and by the end with adjunctive use of protamine I was able to see the leak. By the end we get a great pulse in the right groin and good pedal pulses as well. Patient was seen this morning. I took the FemoStop out. The right groin is soft and nontender with a grade right femoral pulse and good pedal pulses as well. Her toes are cold that they are feeling better according to her. She reports no pain in the chest. Her vitals are stable. Her hemoglobin is stable. I'm going to keep the patient overnight for 1 more day to watch her very closely. I would continue dual antiplatelet therapy along with high intensity statin and possible discharge in the next 24 hours Objective - Vital Signs Vital signs: Vital Signs Temp 97.6 F 07/28/21 03:53 Pulse 80 07/28/21 03:53 Resp 18 07/28/21 03:53 BP 135/60 07/28/21 03:53 Pulse Ox 100 07/28/21 03:53 Intake & Output 07/27/21 07/28/21 07/28/21 18:59 06:59 18:59 Intake Total 1320 900 Output Total 300 925 Balance 1020 -25 Weight 48.7 kg Intake: IV 1320 Intake, IV Titration 900 Amount Sodium Chloride 0.9% 1, 900 000 ml In Empty Bag 1 bag @ 75 mls/hr IV .[id number] [facility] Rx#:[id number] Oral 0 Output: Urine 300 775 Uretheral (Horan) 575 Emesis 150 Other: Voiding Method Indwelling Catheter # Voids 1 1 - Labs CBC & Chem 7: 07/28/21 05:28 07/28/21 05:28 Labs: Abnormal Lab Results - Last 24 Hours (Table) 07/27/21 07/28/21 07/28/21 Range/Units 18:02 05:28 05:28 RBC 3.52 L 3.56 L (3.80-5.40) m/uL Hgb 10.8 L 10.9 L (11.4-16.0) gm/dL Plt Count 146 L (150-450) k/uL Neutrophils # 9.0 H 9.2 H (1.3-7.7) k/uL Lymphocytes # 0.5 L 0.4 L (1.0-4.8) k/uL Chloride 111 H (98-107) mmol/L Creatinine 0.50 L (0.52-1.04) mg/dL Glucose 101 H (74-99) mg/dL
[2021-07-28] MEDS ORDERED: ASPIRIN 81 MG PO SCH (09:00)
[2021-07-28] MEDS ORDERED: HYDROmorphone 1 MG/ML 1 ML SYRINGE IVP PRN (11:59)
[2021-07-28] MEDS: DOCUSATE 100 MG CAP PO SCH (12:02)
[2021-07-28] MEDS: CALCIUM CARBONATE 500 MG CHEWABLE PO SCH (12:02)
[2021-07-28] MEDS: CHOLECALCIFEROL 25 MCG (1000 IU) TABLET PO SCH (12:03)
[2021-07-28] MEDS: ASPIRIN 325 MG TAB PO SCH (12:03)
[2021-07-28] MEDS: CLOPIDOGREL 75 MG TAB PO SCH (12:03)
[2021-07-28] MEDS: PANTOPRAZOLE 40 MG TABLET PO SCH (12:03)
[2021-07-28] MEDS: METOPROLOL TARTRATE 12.5 MG TAB PO SCH ×2 (12:04→21:55)
[2021-07-28] MEDS: ACETAMINOPHEN TAB 325 MG TAB PO PRN (12:21)
[2021-07-28] MEDS: GABAPENTIN 300 MG CAP PO SCH ×2 (12:21→21:55)
[2021-07-28 13:08] VITALS: BMI 19.0
[2021-07-28] MEDS: buPROPion SR 100 MG TABLET.ER PO SCH ×2 (16:46→21:55)
[2021-07-28] MEDS: HYDROXYCHLOROQUINE SULFATE 200 MG TAB PO SCH ×2 (16:46→21:55)
[2021-07-28] MEDS: LETROZOLE 2.5 MG TAB PO SCH (16:47)
[2021-07-28] MEDS: ATORVASTATIN 80 MG TAB PO SCH (21:55)
[2021-07-29] MEDS: ACETAMINOPHEN TAB 325 MG TAB PO PRN (00:40)
[2021-07-29] MEDS: PANTOPRAZOLE 40 MG TABLET PO SCH (06:11)
[2021-07-29] MEDS: CHOLECALCIFEROL 25 MCG (1000 IU) TABLET PO SCH (08:14)
[2021-07-29] MEDS: HYDROXYCHLOROQUINE SULFATE 200 MG TAB PO SCH (08:14)
[2021-07-29] MEDS: CLOPIDOGREL 75 MG TAB PO SCH (08:14)
[2021-07-29] MEDS: GABAPENTIN 300 MG CAP PO SCH (08:14)
[2021-07-29] MEDS: buPROPion SR 100 MG TABLET.ER PO SCH (08:14)
[2021-07-29] MEDS: DOCUSATE 100 MG CAP PO SCH (08:14)
[2021-07-29] MEDS: ASPIRIN 325 MG TAB PO SCH (08:14)
[2021-07-29] MEDS: METOPROLOL TARTRATE 12.5 MG TAB PO SCH (08:14)
[2021-07-29] MEDS: CALCIUM CARBONATE 500 MG CHEWABLE PO SCH (08:14)
[2021-07-29] MEDS: LETROZOLE 2.5 MG TAB PO SCH (08:15)
[2021-07-29] MEDS: TIOTROPIUM 2.5 MCG INHALER INHALATION SCH (08:26)
[2021-07-29] MEDS: SYMBICORT 160-4.5 MCG INHALER INHALATION SCH (08:26)
[2021-07-29 08:30] VITALS: RESP 20
--- NOTE | 2021-07-29 09:52 | XR ---
EXAMINATION TYPE: XR chest 1V portable DATE OF EXAM: 07/29/2021 COMPARISON: Chest x-ray 05/09/2021, 06/02/2021, CT 12/31/2020 HISTORY: Redness of breath, Covid positive TECHNIQUE: Single frontal view of the chest is obtained. FINDINGS: Patient is rotated. Prominent lung volume may be indicative of underlying COPD. Surgical c lips are present over the left breast. There are overlying artifacts. Aorta is dense. Cardiac mediast inal silhouette is stable. No evident pneumothorax or pleural effusion. Bone mineralization is reduce d. Patchy density is present in the left chest similar to prior exams. [place] valves are noted on the left. Left hemidiaphragm is mildly elevated. IMPRESSION: Emphysema. Post procedure changes, rotated exam. There may be some underlying atelectasi s or scarring, correlate to exclude early pneumonia, follow-up as indicated.
[2021-07-29 13:11] VITALS: BP 114/54; PULSE 81; TEMP 99.6
--- NOTE | 2021-07-29 13:54 | P.DS ---
Providers Date of admission: 07/29/21 11:39 Peripheral arterial disease Attending physician: Mckinley Stewart Primary care physician: [facility] [place] Course: This is a 76-year-old female patient underwent visible successful stenting of the left iliac and atherectomy and balloon angioplasty of the left femoral artery and subsequent patient was brought back also pulse in the right orbit subsequently she underwent HAT BLOCKER of the right femoral artery and stenting of the right iliac She was seen this morning. She is asymptomatic. The right groin is soft and nontender. The right groin has a false. She was in the right dorsalis pedis. The patient is going to discharged home on dual antiplatelet therapy and he'll follow-up with the patient next week in the office Plan - Discharge Summary Discharge Rx Participant: No New Discharge Prescriptions: New Atorvastatin [Lipitor] 80 mg PO HS #90 tab Clopidogrel [Plavix] 75 mg PO DAILY #90 tab Continue Pantoprazole Sodium [Protonix] 40 mg PO DAILY Hydroxychloroquine Sulfate [Plaquenil] 200 mg PO BID Fluticasone/Salmeterol [Advair 500-50 Diskus] 1 puff INHALATION RT-BID Gabapentin [Neurontin] 300 mg PO BID Levalbuterol Hfa Inhaler [Xopenex Hfa Inhaler] 1 puff INHALATION RT-Q6H PRN PRN Reason: Shortness Of Breath Calcium Carbonate [Calcium] 1,200 mg PO DAILY Cholecalciferol (Vitamin D3) [Vitamin D3] 2,000 mcg PO DAILY Letrozole [Femara] 2.5 mg PO DAILY Tiotropium 18 Mcg/Puff [Spiriva] 1 puff INHALATION RT-DAILY Metoprolol Tartrate [Lopressor] 12.5 mg PO BID #60 tab Aspirin [Lyndon Aspirin EC] 81 mg PO DAILY PRN PRN Reason: Per Protocol Albuterol Nebulized [Ventolin Nebulized] 2.5 mg INHALATION RT-QID PRN PRN Reason: Shortness Of Breath Docusate [Colace] 100 mg PO DAILY buPROPion HCL [Wellbutrin SR] 100 mg PO BID Discharge Medication List Hydroxychloroquine Sulfate [Plaquenil] 200 mg PO BID 03/29/15 [History] Pantoprazole Sodium [Protonix] 40 mg PO DAILY 03/29/15 [History] Fluticasone/Salmeterol [Advair 500-50 Diskus] 1 puff INHALATION RT-BID 05/31/16 [History] Gabapentin [Neurontin] 300 mg PO BID 04/07/19 [History] Levalbuterol Hfa Inhaler [Xopenex Hfa Inhaler] 1 puff INHALATION RT-Q6H PRN 04/07/19 [History] Calcium Carbonate [Calcium] 1,200 mg PO DAILY 04/29/19 [History] Cholecalciferol (Vitamin D3) [Vitamin D3] 2,000 mcg PO DAILY 05/23/19 [History] Letrozole [Femara] 2.5 mg PO DAILY 10/23/19 [History] Tiotropium 18 Mcg/Puff [Spiriva] 1 puff INHALATION RT-DAILY 10/30/19 [History] Albuterol Nebulized [Ventolin Nebulized] 2.5 mg INHALATION RT-QID PRN 11/04/20 [History] Docusate [Colace] 100 mg PO DAILY 01/09/21 [History] buPROPion HCL [Wellbutrin SR] 100 mg PO BID 01/09/21 [History] Metoprolol Tartrate [Lopressor] 12.5 mg PO BID #60 tab 01/12/21 [Rx] Aspirin [Lyndon Aspirin EC] 81 mg PO DAILY PRN 07/27/21 [History] Atorvastatin [Lipitor] 80 mg PO HS #90 tab 07/29/21 [Rx] Clopidogrel [Plavix] 75 mg PO DAILY #90 tab 07/29/21 [Rx] Follow up Appointment(s)/Referral(s): Mckinley Stewart MD [STAFF PHYSICIAN] - 1 Week
== END 2021-07-29 18:01 | disposition home or self-care (01) | DRG 270 ==
LOC: CATHCVL 05:57 → 6NMEDSUR 14:53 → 3SCARD 16:56 → CATHCVL 07-29 11:39
PROVIDERS: ADMIT Internal Medicine Interventional Cardiology; ATTEND Internal Medicine Interventional Cardiology
PROC: 047K3ZZ Dilation of Right Femoral Artery, Percutaneous Approach (ICD-10-PCS; 2021-07-27)
PROC: B41D1ZZ Fluoroscopy of Aorta and Bilateral Lower Extremity Arteries using Low Osmolar Contrast (ICD-10-PCS; 2021-07-27)
PROC: B44LZZ3 Ultrasonography of Femoral Artery, Intravascular (ICD-10-PCS; 2021-07-27)
PROC: 04CL3ZZ Extirpation of Matter from Left Femoral Artery, Percutaneous Approach (ICD-10-PCS; principal; 2021-07-27 07:30)
PROC: 047J3DZ Dilation of Left External Iliac Artery with Intraluminal Device, Percutaneous Approach (ICD-10-PCS; 2021-07-27 07:30)
PROC: 047D3DZ Dilation of Left Common Iliac Artery with Intraluminal Device, Percutaneous Approach (ICD-10-PCS; 2021-07-27 07:30)
PROC: 047H3DZ Dilation of Right External Iliac Artery with Intraluminal Device, Percutaneous Approach (ICD-10-PCS; 2021-07-27 07:30)
PROC: 047C3DZ Dilation of Right Common Iliac Artery with Intraluminal Device, Percutaneous Approach (ICD-10-PCS; 2021-07-27 07:30)
PROC: 047L3ZZ Dilation of Left Femoral Artery, Percutaneous Approach (ICD-10-PCS; 2021-07-27 07:30)
DX: I70.213 Atherosclerosis of native arteries of extremities with intermittent claudication, bilateral legs (principal); U07.1 COVID-19; I70.0 Atherosclerosis of aorta; J44.9 Chronic obstructive pulmonary disease, unspecified
CPT/HCPCS: 37221; 37223; 37225; 37252; 71045; 75625; 75716; 80048; 85025; 87635; 94640

== ENCOUNTER 2021-08-03 09:26 | Inpatient (IN) | payer MEDICARE, BC ==
[2021-08-03] MEDS ORDERED: SODIUM CHLORIDE 0.9% 1,000 ML IV STA (09:44)
[2021-08-03 10:05] LABS: Basophils % (A) 0 %; Eosinophils # (A) 0.1 k/uL (0-0.7); Eosinophils % (A) 2 %; HCT 28.3 % (34.0-46.0); Lymphocytes # (A) 0.5 k/uL (1.0-4.8); Lymphocytes % (A) 12 %; MCH 30.4 pg (25.0-35.0); MCHC 32.6 g/dL (31.0-37.0); MCV 93.4 fL (80.0-100.0); Mean Platelet Volume 7.7; Monocytes # (A) 0.2 k/uL (0-1.0); Monocytes % (A) 5 %; Neutrophils # (A) 3.5 k/uL (1.3-7.7); Neutrophils % (A) 80 %; Platelet Count 195 k/uL (150-450); RBC 3.03 m/uL (3.80-5.40); RDW 13.9 % (11.5-15.5); WBC 4.3 k/uL (3.8-10.6)
[2021-08-03 10:17] LABS: HGB 9.2 gm/dL (11.4-16.0)
[2021-08-03 10:20] LABS: ALT 14 U/L (4-34); AST 28 U/L (14-36); African American GFR (CKD) >90 (>60 ml/min/1.73 sqM); Albumin 2.9 g/dL (3.5-5.0); Alkaline Phosphatase 54 U/L (38-126); Anion Gap 3 mmol/L; Blood Urea Nitrogen 12 mg/dL (7-17); Carbon Dioxide 36 mmol/L (22-30); Chloride 99 mmol/L (98-107); Glucose 99 mg/dL (74-99); Magnesium 1.8 mg/dL (1.6-2.3); Non-African American GFR(CKD) >90 (>60 ml/min/1.73 sqM); Sodium 138 mmol/L (137-145); Total Bilirubin 0.9 mg/dL (0.2-1.3); Total Protein 5.1 g/dL (6.3-8.2)
[2021-08-03 10:30] LABS: INR 0.9 (<1.2); Partial Thromboplastin Time 24.5 sec (22.0-30.0)
--- NOTE | 2021-08-03 10:42 | XR ---
EXAMINATION TYPE: XR chest 2V DATE OF EXAM: 08/03/2021 COMPARISON: Chest x-ray 07/29/2021, CT 12/31/2020 HISTORY: Weakness and shortness of breath, cough and congestion TECHNIQUE: Frontal and lateral views of the chest are obtained. FINDINGS: [place] valves again noted over the pulmonary artery in the left. No evident pneumothorax o r sizable effusion. Bandlike area of increased density is present suggesting some left upper lobe ate lectasis. There is underlying emphysema. Surgical clips are present in the left breast. Cardiomediast inal silhouette is stable. Aorta is dense. Patchy density present at the posterior costophrenic angle . Multilevel compression deformities are present within the thoracic spine, chronic. There are overly ing leads. IMPRESSION: Findings similar to prior exam. There is underlying atelectasis and emphysema, difficult to exclude pneumonia. Postprocedural changes.
--- NOTE | 2021-08-03 10:44 | ED ---
General Adult HPI - General Chief complaint: Shortness of Breath Stated complaint: GILLES Time Seen by Provider: 08/03/21 09:30 Source: patient, RN notes reviewed, old records reviewed Mode of arrival: EMS Limitations: no limitations - History of Present Illness Initial comments: This is a 66-year-old female presents emergency Department stating that she was diagnosed with COVID on July 27. Patient comes in today because she's been unable to eat or drink she's nauseated and feels extremely weak and she also complains of increased shortness of breath. Patient denies any fever chills. Patient denies any chest pain or palpitation. Patient denies any abdominal pain patient denies any vomiting or diarrhea but remains nauseated and particularly i f she eats or drinks anything. Patient denies any swelling to her legs or calf tenderness. Patient denies headache patient denies numbness or weakness. Patient states she had a procedure to open up an arterial blood clot in her leg by Dr. Stewart and she was put on a blood thinner but she does not know what it is. - Related Data Home Medications Medication Instructions Recorded Confirmed Hydroxychloroquine Sulfate 200 mg PO BID 03/29/15 08/03/21 [Plaquenil] Pantoprazole Sodium [Protonix] 40 mg PO DAILY 03/29/15 08/03/21 Fluticasone/Salmeterol [Advair 1 puff INHALATION RT-BID 05/31/16 08/03/21 500-50 Diskus] Gabapentin [Neurontin] 300 mg PO BID 04/07/19 08/03/21 Levalbuterol Hfa Inhaler [Xopenex 1 puff INHALATION RT-Q6H PRN 04/07/19 08/03/21 Hfa Inhaler] Calcium Carbonate [Calcium] 1,200 mg PO DAILY 04/29/19 08/03/21 Letrozole [Femara] 2.5 mg PO DAILY 10/23/19 08/03/21 Albuterol Nebulized [Ventolin 2.5 mg INHALATION RT-QID PRN 11/04/20 08/03/21 Nebulized] Docusate [Colace] 100 mg PO DAILY 01/09/21 08/03/21 buPROPion HCL [Wellbutrin SR] 100 mg PO BID 01/09/21 08/03/21 Aspirin [[place] Aspirin EC] 81 mg PO DAILY 07/27/21 08/03/21 ALPRAZolam [Xanax] 0.25 mg PO BID PRN 08/03/21 08/03/21 Cholecalciferol [Vitamin D3 (25 50 mcg PO DAILY 08/03/21 08/03/21 Mcg = 1000 Iu)] Tiotropium 2.5 Mcg/Puff [Spiriva 2 puff INHALATION RT-DAILY 08/03/21 08/03/21 Respimat 2.5 Mcg] Previous Rx's Medication Instructions Recorded Atorvastatin [Lipitor] 80 mg PO HS #90 tab 07/29/21 Clopidogrel [Plavix] 75 mg PO DAILY #90 tab 07/29/21 Allergies Allergy/AdvReac Type Severity Reaction Status Date / Time banana Allergy Abdominal Verified 08/03/21 10:38 Pain budesonide [From Pulmicort] Allergy Dyspnea Verified 08/03/21 10:38 Iodinated Contrast Media Allergy Anaphylaxis Verified 08/03/21 10:38 [Iodinated Contrast Media - IV Dye] penicillin G Allergy Rash/Hives Verified 08/03/21 10:38 codeine AdvReac Nausea & Verified 08/03/21 10:38 Vomiting levofloxacin AdvReac joint pain Verified 08/03/21 10:38 verapamil AdvReac HEADACHE Verified 08/03/21 10:38 Review of Systems ROS Statement: Those systems with pertinent positive or pertinent negative responses have been documented in the HPI. ROS Other: All systems not noted in ROS Statement are negative. Past Medical History Past Medical History: Atrial Fibrillation, Cancer, COPD, GERD/Reflux, Pneumonia Additional Past Medical History / Comment(s): See Dr Stewart's H&P. Left upper lung nodules being monitored, home O2 at 2L/NC ATC, SJORGEN'S SYNDROME, hx left breast cancer 2019 with lumpectomy and radiation. History of Any Multi-Drug Resistant Organisms: None Reported Past Surgical History: Breast Surgery, Cholecystectomy, Hysterectomy, Orthopedic Surgery Additional Past Surgical History / Comment(s): Bronchoscopies with biopsy, bilateral wrist carpal tunnel, TMJ surgery, left neck cyst removed, colonoscopy, left breast lumpectomy. Angioplasty 07/27/2021. Past Anesthesia/Blood Transfusion Reactions: Previous Problems w/ Anesthesia Additional Past Anesthesia/Blood Transfusion Reaction / Comment(s): SLOW TO WAKE UP. Past Psychological History: No Psychological Hx Reported Smoking Status: Former smoker Past Alcohol Use History: None Reported Past Drug Use History: None Reported - Past Family History Father Family Medical History: Cancer Additional Family Medical History / Comment(s): LUNG CANCER. Mother Family Medical History: Cancer Additional Family Medical History / Comment(s): BREAST CANCER. General Exam - General Exam Comments Initial Comments: GENERAL: Patient is well-developed and well-nourished. Patient is nontoxic and well- hydrated and is in mild distress. ENT: Neck is soft and supple. No significant lymphadenopathy is noted. Oropharynx is clear. Moist mucous membranes. Neck has full range of motion without eliciting any pain. EYES: The sclera were anicteric and conjunctiva were pink and moist. Extraocular movements were intact and pupils were equal round and reactive to light. Eyelids were unremarkable. PULMONARY: Unlabored respirations. Good breath sounds bilaterally. No audible rales rhonchi or wheezing was noted. CARDIOVASCULAR: There is a regular rate and rhythm without any murmurs gallops or rubs. ABDOMEN: Soft and nontender with normal bowel sounds. SKIN: Skin is clear with no lesions or rashes and otherwise unremarkable. NEUROLOGIC: Patient is alert and oriented x3. Cranial nerves II through XII are grossly intact. Motor and sensory are also intact. Normal speech, volume and content. Symmetrical smile. MUSCULOSKELETAL: Normal extremities with adequate strength and full range of motion. LYMPHATICS: No significant lymphadenopathy is noted PSYCHIATRIC: Normal psychiatric evaluation. Limitations: no limitations Course Vital Signs 08/03/21 08/03/21 09:29 12:23 Temperature 97.6 F Pulse Rate 100 94 Respiratory 18 20 Rate Blood Pressure 131/107 137/65 O2 Sat by Pulse 100 100 Oximetry Medical Decision Making - Medical Decision Making EKG shows atrial fibrillation at a rate of 103 bpm QRS is 102 QT interval 08/31/1989 QTC is 399. Patient's EKG shows some T-wave inversions in the precordial leads V4 V5 and V6 as well as inferior T-wave inversions and o ccasional PVC. Patient's d-dimer was elevated however she had a anaphylactic reaction which she states that he needs to call a CODE BLUE on her. So a CT PE study was not done currently. Patient also is found to be anemic and has a low potassium. I spoke with Dr. Wiley he agreed to admit the patient admitted the patient and I wrote admitting orders. - Lab Data Result diagrams: 08/03/21 09:50 08/03/21 09:50 Lab Results 08/03/21 08/03/21 08/03/21 Range/Units 09:50 09:50 09:50 WBC 4.3 (3.8-10.6) k/uL RBC 3.03 L (3.80-5.40) m/uL Hgb 9.2 L D (11.4-16.0) gm/dL Hct 28.3 L (34.0-46.0) % MCV 93.4 (80.0-100.0) fL MCH 30.4 (25.0-35.0) pg MCHC 32.6 (31.0-37.0) g/dL RDW 13.9 (11.5-15.5) % Plt Count 195 (150-450) k/uL MPV 7.7 Neutrophils % 80 % Lymphocytes % 12 % Monocytes % 5 % Eosinophils % 2 % Basophils % 0 % Neutrophils # 3.5 (1.3-7.7) k/uL Lymphocytes # 0.5 L (1.0-4.8) k/uL Monocytes # 0.2 (0-1.0) k/uL Eosinophils # 0.1 (0-0.7) k/uL Basophils # 0.0 (0-0.2) k/uL PT 10.0 (9.0-12.0) sec INR 0.9 (<1.2) APTT 24.5 (22.0-30.0) sec D-Dimer 1.38 H (<0.60) mg/L FEU Sodium 138 (137-145) mmol/L Potassium 3.0 L (3.5-5.1) mmol/L Chloride 99 (98-107) mmol/L Carbon Dioxide 36 H (22-30) mmol/L Anion Gap 3 mmol/L BUN 12 (7-17) mg/dL Creatinine 0.32 L (0.52-1.04) mg/dL Est GFR (CKD-EPI)AfAm >90 (>60 ml/min/1.73 sqM) Est GFR (CKD-EPI)NonAf >90 (>60 ml/min/1.73 sqM) Glucose 99 (74-99) mg/dL Plasma Lactic Acid Seth (0.7-2.0) mmol/L Calcium 8.0 L (8.4-10.2) mg/dL Magnesium 1.8 (1.6-2.3) mg/dL Total Bilirubin 0.9 (0.2-1.3) mg/dL AST 28 (14-36) U/L ALT 14 (4-34) U/L Alkaline Phosphatase 54 (38-126) U/L Troponin I (0.000-0.034) ng/mL NT-Pro-B Natriuret Pep pg/mL Total Protein 5.1 L (6.3-8.2) g/dL Albumin 2.9 L (3.5-5.0) g/dL 08/03/21 08/03/21 08/03/21 Range/Units 09:50 09:50 09:50 WBC (3.8-10.6) k/uL RBC (3.80-5.40) m/uL Hgb (11.4-16.0) gm/dL Hct (34.0-46.0) % MCV (80.0-100.0) fL MCH (25.0-35.0) pg MCHC (31.0-37.0) g/dL RDW (11.5-15.5) % Plt Count (150-450) k/uL MPV Neutrophils % % Lymphocytes % % Monocytes % % Eosinophils % % Basophils % % Neutrophils # (1.3-7.7) k/uL Lymphocytes # (1.0-4.8) k/uL Monocytes # (0-1.0) k/uL Eosinophils # (0-0.7) k/uL Basophils # (0-0.2) k/uL PT (9.0-12.0) sec INR (<1.2) APTT (22.0-30.0) sec D-Dimer (<0.60) mg/L FEU Sodium (137-145) mmol/L Potassium (3.5-5.1) mmol/L Chloride (98-107) mmol/L Carbon Dioxide (22-30) mmol/L Anion Gap mmol/L BUN (7-17) mg/dL Creatinine (0.52-1.04) mg/dL Est GFR (CKD-EPI)AfAm (>60 ml/min/1.73 sqM) Est GFR (CKD-EPI)NonAf (>60 ml/min/1.73 sqM) Glucose (74-99) mg/dL Plasma Lactic Acid Seth 1.1 (0.7-2.0) mmol/L Calcium (8.4-10.2) mg/dL Magnesium (1.6-2.3) mg/dL Total Bilirubin (0.2-1.3) mg/dL AST (14-36) U/L ALT (4-34) U/L Alkaline Phosphatase (38-126) U/L Troponin I 0.031 (0.000-0.034) ng/mL NT-Pro-B Natriuret Pep 709 pg/mL Total Protein (6.3-8.2) g/dL Albumin (3.5-5.0) g/dL Disposition Clinical Impression: Anemia, Hypokalemia, Elevated d-dimer, Dyspnea Disposition: ADMITTED IP TO THIS [facility] Time of Disposition: 12:47
[2021-08-03] MEDS ORDERED: POTASSIUM CHLORIDE 20 MEQ in WATER FOR INJECTION 1 100ML.BAG IVPB ONE (12:30)
[2021-08-03 14:29] LABS: Appearance,Urine Clear (Clear); Bilirubin,Urine Negative (Negative); Blood,Urine Negative (Negative); Color,Urine Yellow; Glucose,Urine (UA) Negative (Negative); Ketones,Urine 1+ (Negative); Leukocyte Esterase,Urine Trace (Negative); Mucus,Urine Rare /hpf; Nitrite,Urine Negative (Negative); PH, Urine 6.5 (5.0-8.0); Protein,Urine Trace (Negative); Specific Gravity,Urine 1.024 (1.001-1.035); Squamous Epithelial Cell,Urine <1 /hpf (0-4)
[2021-08-03] MEDS ORDERED: ALBUTEROL NEBULIZED 2.5 MG/3 ML INHALATION PRN (14:36)
--- NOTE | 2021-08-03 14:51 | P.HPIM ---
History of Present Illness Patient is a 66-year-old female came in with complaints of epigastric abdominal burning sensation along with nausea. Patient is on aspirin and Plavix at home patient had a stent in the right femoral artery for peripheral vascular disease about a week ago. Patient was diagnosed with COVID-19 at that time as well. Patient denied any increased shortness of breath does have wheezing on exam does have advanced COPD history patient is on 2 L of oxygen presently doesn't smoke. Patient does have history of chronic A. fib presently in atrial fibrillation with rapid ventricular rate. Patient was also complaining of loose stools but never checked the color of the stools. Patient may be having GI bleed, there is concern for this because of her drop in hemoglobin from 12-9.2 compared to her last hospitalization admission. Patient's troponins are not elevated patient denied any chest pain at this time. Patient does have some wheezing on exam. Patient was complaining of generalized fatigue and weakness REVIEW OF SYSTEMS: CONSTITUTIONAL: As mentioned in HPI HEENT: No recent visual problems or hearing problems. Denied any sore throat. CARDIOVASCULAR: No chest pain, orthopnea, PND, no palpitations, no syncope. PULMONARY: No shortness of breath, no cough, no hemoptysis. GASTROINTESTINAL: As mentioned in HPI : No headaches, no weakness, no numbness. HEMATOLOGICAL: Denies any bleeding or petechiae. GENITOURINARY: Denies any burning micturition, frequency, or urgency. MUSCULOSKELETAL/RHEUMATOLOGICAL: Denies any joint pain, swelling, or any muscle pain. ENDOCRINE: Denies any polyuria or polydipsia. The rest of the 14-point review of systems is negative. PHYSICAL EXAMINATION: GENERAL: The patient is alert and oriented x3, not in any acute distress. Thin built cachectic female HEENT: Pupils are round and equally reacting to light. EOMI. No scleral icterus. No conjunctival pallor. Normocephalic, atraumatic. No pharyngeal erythema. No thyromegaly. CARDIOVASCULAR: S1 and S2 present. No murmurs, rubs, or gallops. PULMONARY: Expiratory wheezing on exam fairly good air entry into bilateral lung sewell ABDOMEN: Soft, is mild tenderness in the epigastric area nondistended, normoactive bowel sounds. No palpable organomegaly. MUSCULOSKELETAL: No joint swelling or deformity. EXTREMITIES: No cyanosis, clubbing, or pedal edema. NEUROLOGICAL: Gross neurological examination did not reveal any focal deficits. SKIN: No rashes. Assessment and plan -Possible acute upper GI bleed: Patient will be transfused the if needed. Patient was started on Protonix. Hold off on aspirin and Plavix, gastroe nterology was consulted. -COPD mild with mild acute exacerbation patient was started on Pulmicort and continue with inhalational treatments, patient is having probably acute upper GI bleed because of which are not started on any systemic steroids at this time. -History of peripheral vascular disease recent stents antiplatelet therapy is being held because of upper GI bleed will consult cardiology regarding their recommendations regarding reinitiation of antiplatelet therapy. -Atrial fibrillation with rapid ventricular rate patient probably has chronic A. fib not on at this time, secondary to hypovolemia patient will be resuscitated with IV fluid gently. Patient will be started on anticoagulation because of possible upper GI bleed at this time -Hypokalemia potassium will be replaced -COVID-19 pneumonia which was recently diagnosed about a week ago. Presently asymptomatic. DVT prophylaxis: No pharmacological anticoagulation at this time because of possible upper GI bleed we'll use SCDs Past Medical History Past Medical History: Atrial Fibrillation, Cancer, COPD, GERD/Reflux, Pneumonia Additional Past Medical History / Comment(s): See Dr Stewart's H&P. Left upper lung nodules being monitored, home O2 at 2L/NC ATC, SJORGEN'S SYNDROME, hx left breast cancer 2019 with lumpectomy and radiation. History of Any Multi-Drug Resistant Organisms: None Reported Past Surgical History: Breast Surgery, Cholecystectomy, Hysterectomy, Orthopedic Surgery Additional Past Surgical History / Comment(s): Bronchoscopies with biopsy, bilateral wrist carpal tunnel, TMJ surgery, left neck cyst removed, colonoscopy, left breast lumpectomy. Angioplasty 07/27/2021. Past Anesthesia/Blood Transfusion Reactions: Previous Problems w/ Anesthesia Additional Past Anesthesia/Blood Transfusion Reaction / Comment(s): SLOW TO WAKE UP. Past Psychological History: No Psychological Hx Reported Smoking Status: Former smoker Past Alcohol Use History: None Reported Past Drug Use History: None Reported - Past Family History Father Family Medical History: Cancer Additional Family Medical History / Comment(s): LUNG CANCER. Mother Family Medical History: Cancer Additional Family Medical History / Comment(s): BREAST CANCER. Medications and Allergies Home Medications Medication Instructions Recorded Confirmed Type Hydroxychloroquine Sulfate 200 mg PO BID 03/29/15 08/03/21 History [Plaquenil] Pantoprazole Sodium [Protonix] 40 mg PO DAILY 03/29/15 08/03/21 History Fluticasone/Salmeterol [Advair 1 puff INHALATION RT-BID 05/31/16 08/03/21 History 500-50 Diskus] Gabapentin [Neurontin] 300 mg PO BID 04/07/19 08/03/21 History Levalbuterol Hfa Inhaler [Xopenex 1 puff INHALATION RT-Q6H PRN 04/07/19 08/03/21 History Hfa Inhaler] Calcium Carbonate [Calcium] 1,200 mg PO DAILY 04/29/19 08/03/21 History Letrozole [Femara] 2.5 mg PO DAILY 10/23/19 08/03/21 History Albuterol Nebulized [Ventolin 2.5 mg INHALATION RT-QID PRN 11/04/20 08/03/21 History Nebulized] Docusate [Colace] 100 mg PO DAILY 01/09/21 08/03/21 History buPROPion HCL [Wellbutrin SR] 100 mg PO BID 01/09/21 08/03/21 History Aspirin [[place] Aspirin EC] 81 mg PO DAILY 07/27/21 08/03/21 History Atorvastatin [Lipitor] 80 mg PO HS #90 tab 07/29/21 08/03/21 Rx Clopidogrel [Plavix] 75 mg PO DAILY #90 tab 07/29/21 08/03/21 Rx ALPRAZolam [Xanax] 0.25 mg PO BID PRN 08/03/21 08/03/21 History Cholecalciferol [Vitamin D3 (25 50 mcg PO DAILY 08/03/21 08/03/21 History Mcg = 1000 Iu)] Tiotropium 2.5 Mcg/Puff [Spiriva 2 puff INHALATION RT-DAILY 08/03/21 08/03/21 History Respimat 2.5 Mcg] Allergies Allergy/AdvReac Type Severity Reaction Status Date / Time banana Allergy Abdominal Verified 08/03/21 10:38 Pain budesonide [From Pulmicort] Allergy Dyspnea Verified 08/03/21 10:38 Iodinated Contrast Media Allergy Anaphylaxis Verified 08/03/21 10:38 [Iodinated Contrast Media - IV Dye] penicillin G Allergy Rash/Hives Verified 08/03/21 10:38 codeine AdvReac Nausea & Verified 08/03/21 10:38 Vomiting levofloxacin AdvReac joint pain Verified 08/03/21 10:38 verapamil AdvReac HEADACHE Verified 08/03/21 10:38 Physical Exam Vitals: Vital Signs Temp Pulse Resp BP Pulse Ox 08/03/21 12:23 94 20 137/65 100 08/03/21 09:29 97.6 F 100 18 131/107 100 Intake and Output 08/02/21 08/03/21 08/03/21 22:59 06:59 14:59 Other: Weight 48.988 kg Results CBC & Chem 7: 08/03/21 09:50 08/03/21 09:50 Labs: Abnormal Lab Results - Last 24 Hours (Table) 08/03/21 08/03/21 08/03/21 Range/Units 09:50 09:50 09:50 RBC 3.03 L (3.80-5.40) m/uL Hgb 9.2 L D (11.4-16.0) gm/dL Hct 28.3 L (34.0-46.0) % Lymphocytes # 0.5 L (1.0-4.8) k/uL D-Dimer 1.38 H (<0.60) mg/L FEU Potassium 3.0 L (3.5-5.1) mmol/L Carbon Dioxide 36 H (22-30) mmol/L Creatinine 0.32 L (0.52-1.04) mg/dL Calcium 8.0 L (8.4-10.2) mg/dL Total Protein 5.1 L (6.3-8.2) g/dL Albumin 2.9 L (3.5-5.0) g/dL Urine Protein (Negative) Urine Ketones (Negative) Ur Leukocyte Esterase (Negative) Urine Mucus (None) /hpf 08/03/21 Range/Units 13:27 RBC (3.80-5.40) m/uL Hgb (11.4-16.0) gm/dL Hct (34.0-46.0) % Lymphocytes # (1.0-4.8) k/uL D-Dimer (<0.60) mg/L FEU Potassium (3.5-5.1) mmol/L Carbon Dioxide (22-30) mmol/L Creatinine (0.52-1.04) mg/dL Calcium (8.4-10.2) mg/dL Total Protein (6.3-8.2) g/dL Albumin (3.5-5.0) g/dL Urine Protein Trace H (Negative) Urine Ketones 1+ H (Negative) Ur Leukocyte Esterase Trace H (Negative) Urine Mucus Rare H (None) /hpf
[2021-08-03] MEDS: SODIUM CHLORIDE 0.9% 1,000 ML IV SCH (15:13)
[2021-08-03] MEDS: ONDANSETRON 4 MG/2 ML VIAL IVP PRN (19:45)
[2021-08-03] MEDS: SYMBICORT 160-4.5 MCG INHALER INHALATION SCH (19:54)
[2021-08-03] MEDS: ALBUTEROL HFA INHALER INHALATION SCH (19:54)
[2021-08-03] MEDS ORDERED: ALBUTEROL NEBULIZED 2.5 MG/3 ML INHALATION SCH (20:00)
[2021-08-03] MEDS ORDERED: BUDESONIDE 0.5 MG/2 ML NEBU INHALATION SCH (20:00)
[2021-08-03] MEDS ORDERED: BENZOCAINE 20 % GEL 11.9 GM TUBE MM PRN (22:00)
[2021-08-03] MEDS: POTASSIUM CHLORIDE 10 MEQ in WATER FOR INJECTION 1 100ML.BAG IVPB SCH ×3 (22:31→22:34)
[2021-08-03] MEDS: ATORVASTATIN 80 MG TAB PO SCH (22:32)
[2021-08-03] MEDS: HYDROXYCHLOROQUINE SULFATE 200 MG TAB PO SCH (22:32)
[2021-08-03] MEDS: GABAPENTIN 300 MG CAP PO SCH (22:32)
[2021-08-03] MEDS: buPROPion SR 100 MG TABLET.ER PO SCH (22:32)
[2021-08-03 23:08] LABS: Basophils % (A) 0 %; Eosinophils % (A) 1 %; HCT 26.3 % (34.0-46.0); HGB 8.4 gm/dL (11.4-16.0); Hypochromasia Slight; Lymphocytes # (A) 0.5 k/uL (1.0-4.8); Lymphocytes % (A) 12 %; MCH 30.2 pg (25.0-35.0); MCHC 31.8 g/dL (31.0-37.0); MCV 94.8 fL (80.0-100.0); Monocytes # (A) 0.2 k/uL (0-1.0); Monocytes % (A) 5 %; Neutrophils # (A) 3.4 k/uL (1.3-7.7); Neutrophils % (A) 80 %; Platelet Count 194 k/uL (150-450); RBC 2.77 m/uL (3.80-5.40); WBC 4.3 k/uL (3.8-10.6)
[2021-08-04] MEDS: POTASSIUM CHLORIDE 10 MEQ in WATER FOR INJECTION 1 100ML.BAG IVPB SCH (01:06)
[2021-08-04] MEDS: ONDANSETRON 4 MG/2 ML VIAL IVP PRN ×2 (02:30→21:42)
[2021-08-04] MEDS: TIOTROPIUM 2.5 MCG INHALER INHALATION SCH (07:47)
[2021-08-04] MEDS: ALBUTEROL HFA INHALER INHALATION SCH ×4 (07:47→20:05)
[2021-08-04] MEDS: SYMBICORT 160-4.5 MCG INHALER INHALATION SCH ×2 (07:50→20:05)
[2021-08-04] MEDS ORDERED: IPRATROPIUM 0.5 MG/2.5 ML NEBU INHALATION SCH (08:00)
[2021-08-04] MEDS: CHOLECALCIFEROL 25 MCG (1000 IU) TABLET PO SCH (08:30)
[2021-08-04] MEDS: SODIUM CHLORIDE 0.9% 1,000 ML IV SCH ×2 (08:30→17:56)
[2021-08-04] MEDS: HYDROXYCHLOROQUINE SULFATE 200 MG TAB PO SCH ×2 (08:30→21:45)
[2021-08-04] MEDS: DOCUSATE 100 MG CAP PO SCH (08:30)
[2021-08-04] MEDS: LETROZOLE 2.5 MG TAB PO SCH (08:30)
[2021-08-04] MEDS: buPROPion SR 100 MG TABLET.ER PO SCH ×2 (08:30→21:45)
[2021-08-04] MEDS: GABAPENTIN 300 MG CAP PO SCH ×2 (08:30→21:44)
[2021-08-04 09:23] LABS: African American GFR (CKD) 139.8 (60.0-200.0); Anion Gap 12.4 mmol/L (10.00-18.00); BUN/Creat Ratio 22.11 Ratio (12.00-20.00); Blood Urea Nitrogen 6.3 mg/dL (9.0-27.0); Calcium 7.8 mg/dL (8.7-10.3); Carbon Dioxide 26.7 mmol/L (20.0-27.5); Non-African American GFR(CKD) 120.6 (60.0-200.0); Potassium 3.7 mmol/L (3.5-5.5)
[2021-08-04 09:38] LABS: Basophils % (A) 0 %; Eosinophils # (A) 0.1 k/uL (0-0.7); Eosinophils % (A) 2 %; HCT 25.4 % (34.0-46.0); HGB 8.1 gm/dL (11.4-16.0); Hypochromasia Moderate; Lymphocytes # (A) 0.6 k/uL (1.0-4.8); Lymphocytes % (A) 12 %; MCH 30.5 pg (25.0-35.0); MCV 95.3 fL (80.0-100.0); Monocytes # (A) 0.2 k/uL (0-1.0); Monocytes % (A) 5 %; Neutrophils # (A) 3.7 k/uL (1.3-7.7); Neutrophils % (A) 80 %; Platelet Count 220 k/uL (150-450); RBC 2.66 m/uL (3.80-5.40); RDW 14.4 % (11.5-15.5); WBC 4.7 k/uL (3.8-10.6)
[2021-08-04] MEDS: PANTOPRAZOLE 40 MG/10 ML VIAL IVP SCH ×2 (10:20→21:46)
[2021-08-04] MEDS: METOPROLOL TARTRATE 12.5 MG TAB PO SCH ×2 (10:20→21:44)
--- NOTE | 2021-08-04 10:46 | P.CRDCN ---
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 Patient follows in the office with Dr. Ascencio. We have been asked to see the patient in consultation for atrial fibrillation and GI Bleed. Patient presents to the emergency department due to complaints of decreased appetite, nausea, generalized weakness, and some shortness of breath. She denies any chest pain, palpitations, diaphoresis, lightheadedness, dizziness, syncope or near syncope. She denies any symptoms of cough, fever, chills, lower extremity edema, calf tenderness, and symptoms of orthopnea or PND. On admission patient found to have a hemoglobin of 9.2, previously was 10.9 prior to discharge from her previous hospitalization on 07/28/2021. She denies any bleeding in her stool. Denies any dark or tarry stools. DIAGNOSTICS EKG multifocal atrial rhythm, heart rate 103, incomplete right bundle branch block, PVCs and nonspecific T-wave abnormalities. EKG in the office in the office 10/2020 with similar findings Chest xray. Cardiac silhouette stable. Multiple compression deformities are present within the thoracic spine, chronic Telemetry reviewed, patient in multifocal atrial rhythm, no evidence of atrial fibrillation. Laboratory data: WBC 4.7, hemoglobin 8.1, platelets 220, sodium 141, potassium 3.7, BUN 6.3, serum creatinine 0.3 Current home cardiac medications include aspirin 81 mg daily, Plavix 75 mg daily, atorvastatin 80 mg nightly, Plaquenil, Protonix, Wellbutrin Most recent echocardiogram 01/2021 revealed EF of 5055 percent, mild MR, mild TR, trivial pericardial effusion present Patient underwent stress echocardiogram in June 2019 which was negative for ischemia REVIEW OF SYSTEMS: At the time of my exam: CONSTITUTIONAL: Denies fever or chills. HEENT: Denies blurred vision, vision changes, or eye pain. Denies hemoptysis CARDIOVASCULAR: Denies chest pain. Denies orthopnea. Denies PND. Denies palpitations RESPIRATORY: Reports shortness of breath. GASTROINTESTINAL: Denies abdominal pain. Denies nausea or vomiting. HEMATOLOGIC: Denies bleeding disorders. GENITOURINARY: Denies any blood in urine. SKIN: Denies pruitis. Denies rash. PHYSICAL EXAM: VITAL SIGNS: Reviewed. GENERAL: Well-developed in no acute distress. HEENT: Head is normocephalic.Neck supple. No JVD or thyromegaly LUNGS: Respirations even and unlabored. Lungs with decreased air exchange bilaterally. HEART: Regular rate and rhythm. S1 and S2 heard. ABDOMEN: Soft. Nondistended. Nontender. EXTREMITIES: No lower extremity edema NEUROLOGIC: Awake and alert. Oriented x 3. ASSESSMENT: Multifocal atrial tachycardia Symptoms of generalized weakness, decreased appetite Anemia, could be from blood loss from recent procedure, patient denies any blood or dark stools Severe peripheral vascular disease s/p stenting of the left iliac and atherectomy and balloon angioplasty of the left femoral artery 07/27/21 and subsequent patient was brought she underwent [employer]OMOTIVE [employer]S COORDINATOR of the right femoral artery and stenting of the right iliac 07/28/2021 Covid-19 infection diagnosted 07/27/2021 History of COPD History of breast cancer Former nicotine dependence PLAN: No evidence of atrial fibrillation, patient in a multifocal atrial tachycardia rhythm. No need for anticoagulation. Start metoprolol tartrate 12.5 mg twice a day and continue statin We recommend restarting Plavix and aspirin. We'll await GI recommendation. Patient's anemia could be related to recent procedure and blood loss anemia. Further recommendations based on clinical course Nurse practitioner note has been reviewed by physician. Signing provider agrees with the documented findings, assessment, and plan of care. Past Medical History Past Medical History: Atrial Fibrillation, Cancer, COPD, GERD/Reflux, Pneumonia Additional Past Medical History / Comment(s): See Dr Stewart's H&P. Left upper lung nodules being monitored, home O2 at 2L/NC ATC, SJORGEN'S SYNDROME, hx left breast cancer 2019 with lumpectomy and radiation. History of Any Multi-Drug Resistant Organisms: None Reported Past Surgical History: Breast Surgery, Cholecystectomy, Hysterectomy, Orthopedic Surgery Additional Past Surgical History / Comment(s): Bronchoscopies with biopsy, bilateral wrist carpal tunnel, TMJ surgery, left neck cyst removed, colonoscopy, left breast lumpectomy. Angioplasty 07/27/2021. Past Anesthesia/Blood Transfusion Reactions: Previous Problems w/ Anesthesia Additional Past Anesthesia/Blood Transfusion Reaction / Comment(s): SLOW TO WAKE UP. Past Psychological History: No Psychological Hx Reported Smoking Status: Former smoker Past Alcohol Use History: None Reported Past Drug Use History: None Reported - Past Family History Father Family Medical History: Cancer Additional Family Medical History / Comment(s): LUNG CANCER. Mother Family Medical History: Cancer Additional Family Medical History / Comment(s): BREAST CANCER. Medications and Allergies Home Medications Medication Instructions Recorded Confirmed Type Hydroxychloroquine Sulfate 200 mg PO BID 03/29/15 08/03/21 History [Plaquenil] Pantoprazole Sodium [Protonix] 40 mg PO DAILY 03/29/15 08/03/21 History Fluticasone/Salmeterol [Advair 1 puff INHALATION RT-BID 05/31/16 08/03/21 History 500-50 Diskus] Gabapentin [Neurontin] 300 mg PO BID 04/07/19 08/03/21 History Levalbuterol Hfa Inhaler [Xopenex 1 puff INHALATION RT-Q6H PRN 04/07/19 08/03/21 History Hfa Inhaler] Calcium Carbonate [Calcium] 1,200 mg PO DAILY 04/29/19 08/03/21 History Letrozole [Femara] 2.5 mg PO DAILY 10/23/19 08/03/21 History Albuterol Nebulized [Ventolin 2.5 mg INHALATION RT-QID PRN 11/04/20 08/03/21 History Nebulized] Docusate [Colace] 100 mg PO DAILY 01/09/21 08/03/21 History buPROPion HCL [Wellbutrin SR] 100 mg PO BID 01/09/21 08/03/21 History Aspirin [[place] Aspirin EC] 81 mg PO DAILY 07/27/21 08/03/21 History Atorvastatin [Lipitor] 80 mg PO HS #90 tab 07/29/21 08/03/21 Rx Clopidogrel [Plavix] 75 mg PO DAILY #90 tab 07/29/21 08/03/21 Rx ALPRAZolam [Xanax] 0.25 mg PO BID PRN 08/03/21 08/03/21 History Cholecalciferol [Vitamin D3 (25 50 mcg PO DAILY 08/03/21 08/03/21 History Mcg = 1000 Iu)] Tiotropium 2.5 Mcg/Puff [Spiriva 2 puff INHALATION RT-DAILY 08/03/21 08/03/21 History Respimat 2.5 Mcg] Allergies Allergy/AdvReac Type Severity Reaction Status Date / Time banana Allergy Abdominal Verified 08/03/21 10:38 Pain budesonide [From Pulmicort] Allergy Dyspnea Verified 08/03/21 10:38 Iodinated Contrast Media Allergy Anaphylaxis Verified 08/03/21 10:38 [Iodinated Contrast Media - IV Dye] penicillin G Allergy Rash/Hives Verified 08/03/21 10:38 codeine AdvReac Nausea & Verified 08/03/21 10:38 Vomiting levofloxacin AdvReac joint pain Verified 08/03/21 10:38 verapamil AdvReac HEADACHE Verified 08/03/21 10:38 Physical Exam Vitals: Vital Signs Temp Pulse Resp BP Pulse Ox 08/03/21 12:23 94 20 137/65 100 08/03/21 09:29 97.6 F 100 18 131/107 100 Intake and Output 08/02/21 08/03/21 08/03/21 22:59 06:59 14:59 Other: Weight 48.988 kg Results 08/04/21 05:32 08/04/21 05:36 Cardiac Enzymes 08/03/21 08/03/21 Range/Units 09:50 09:50 AST 28 (14-36) U/L Troponin I 0.031 (0.000-0.034) ng/mL Coagulation 08/03/21 Range/Units 09:50 PT 10.0 (9.0-12.0) sec APTT 24.5 (22.0-30.0) sec CBC 08/03/21 Range/Units 09:50 WBC 4.3 (3.8-10.6) k/uL RBC 3.03 L (3.80-5.40) m/uL Hgb 9.2 L D (11.4-16.0) gm/dL Hct 28.3 L (34.0-46.0) % Plt Count 195 (150-450) k/uL Comprehensive Metabolic Panel 08/03/21 Range/Units 09:50 Sodium 138 (137-145) mmol/L Potassium 3.0 L (3.5-5.1) mmol/L Chloride 99 (98-107) mmol/L Carbon Dioxide 36 H (22-30) mmol/L BUN 12 (7-17) mg/dL Creatinine 0.32 L (0.52-1.04) mg/dL Glucose 99 (74-99) mg/dL Calcium 8.0 L (8.4-10.2) mg/dL AST 28 (14-36) U/L ALT 14 (4-34) U/L Alkaline Phosphatase 54 (38-126) U/L Total Protein 5.1 L (6.3-8.2) g/dL Albumin 2.9 L (3.5-5.0) g/dL Current Medications Generic Name Dose Route Start Last Admin Trade Name Freq PRN Reason Stop Dose Admin Albuterol Sulfate 2.5 mg 08/03/21 14:36 Albuterol Nebulized 2.5 Mg/3 Ml INHALATION RT-QID PRN Shortness Of Breath Alprazolam 0.25 mg 08/03/21 14:36 Alprazolam 0.25 Mg Tab PO BID PRN Anxiety Atorvastatin Calcium 80 mg 08/03/21 21:00 Atorvastatin 80 Mg Tab PO HS PAO Bupropion HCl 100 mg 08/03/21 21:00 Bupropion Sr 100 Mg Tablet.Er PO BID PAO Cholecalciferol 50 mcg 08/04/21 09:00 Cholecalciferol 25 Mcg (1000 Iu) Tablet PO DAILY PAO Docusate Sodium 100 mg 08/04/21 09:00 Docusate 100 Mg Cap PO DAILY PAO Gabapentin 300 mg 08/03/21 21:00 Gabapentin 300 Mg Cap PO BID PAO Hydroxychloroquine Sulfate 200 mg 08/03/21 21:00 Hydroxychloroquine Sulfate 200 Mg Tab PO BID PAO Potassium Chloride 10 meq/ IV 100 mls @ 100 mls/hr 08/03/21 14:45 Solution IVPB 08/03/21 16:44 Q1H PAO Letrozole 2.5 mg 08/04/21 09:00 Letrozole 2.5 Mg Tab PO DAILY PAO Non-Formulary Medication 2 puff 08/04/21 08:00 Tiotropium 2.5 Mcg/Puff INHALATION RT-DAILY PAO Ondansetron HCl 4 mg 08/03/21 12:49 Ondansetron 4 Mg/2 Ml Vial IVP Q6HR PRN Nausea And Vomiting Intake and Output 08/02/21 08/03/21 08/03/21 22:59 06:59 14:59 Other: Weight 48.988 kg Patient Weight 08/04/21 06:59 Weight 48.988 kg 08/03/21 09:50 08/03/21 09:50
--- NOTE | 2021-08-04 11:11 | P.CONS ---
History of Present Illness - Reason for Consult Consult date: 08/04/21 Anemia Requesting physician: Jim Wiley - Chief Complaint Shortness of breath - History of Present Illness This is 66-year-old white female is admitted to the emergency department with complaints of shortness of breath and dyspnea with exertion. She has a history of peripheral arterial disease who underwent stenting of the left iliac and arthrectomy and balloon angioplasty of left femoral artery on 07/27/2021 and then stenting of the right femoral artery and right iliac on 07/28/2021. She was started on ASA and plavix. She also has a past medical history including COPD and follows with Dr. De La Cruz, chronic atrial fibrillation, history of breast cancer, GERD and Sjogren's syndrome. The patient tested positive for chronic virus on 07/27/2021. She's currently on Plaquenil. During her recent hospitalization she had a hemoglobin of 13.6 with a downward trend. During this admission she was noted to have a hemoglobin of 9.2 with a repeat today of 8.1. She denies any previous history of GI bleed. He does state that she has a history of GERD and currently is having epigastric pain and discomfort. She denies any nausea or vomiting. She denies any black stool or right red blood. Denies any hematemesis. States that she had an EGD many years ago and was told that she had a hiatal hernia. She denies any previous history of peptic ulcer disease. Her last colonoscopy was less than [address] Colby, report not available at this time. She does state that she was taking Motrin 800 mg 3 times a day until she was told not to approximately 1-2 weeks ago. She currently has 3 L nasal cannula on with oxygen saturation 93-97%. She's been afebrile. Denies any fevers or chills. She does have a chronic cough. Review of Systems REVIEW OF SYSTEMS: CARDIOPULMONARY: No chest pain. Positive shortness of breath, dyspnea with exertion, cough. Gastrointestinal: Burning sensation in epigastric region, no associated abdominal pain. No nausea or vomiting. No hematemesis, coffee-ground emesis. No rectal bleeding, or melena. GENITOURINARY: No dysuria or hematuria. MUSCULOSKELETAL: Reports normal range of motion., Joint pain. SKIN: No rashes. No jaundice. ENDOCRINE: No chills, fevers. No excessive weight gain or loss. No polydipsia or polyuria. PSYCHIATRIC: Unremarkable. NEUROLOGY: No change in mental status. Denies dizziness, headache. ENT: Vision unremarkable. CONSTITUTIONAL: No recent weight loss. No fever, chills, night sweats. Past Medical History Past Medical History: Atrial Fibrillation, Cancer, COPD, GERD/Reflux, Hyperlipidemia, Pneumonia, Respiratory Disorder, Vascular Disorder Additional Past Medical History / Comment(s): COVID +, L upper lobe nodule being monitored, home oxygen at 2L/NC ATC, PVD, osteoporosis, constipation. 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 Past Anesthesia/Blood Transfusion Reactions: Previous Problems w/ Anesthesia Additional Past Anesthesia/Blood Transfusion Reaction / Comm: SLOW TO WAKE UP. Smoking Status: Former smoker - Past Family History Father Family Medical History: Cancer Additional Family Medical History / Comment(s): LUNG CANCER. Mother Family Medical History: Cancer Additional Family Medical History / Comment(s): BREAST CANCER. Medications and Allergies Home Medications Medication Instructions Recorded Confirmed Type Hydroxychloroquine Sulfate 200 mg PO BID 03/29/15 08/03/21 History [Plaquenil] Pantoprazole Sodium [Protonix] 40 mg PO DAILY 03/29/15 08/03/21 History Fluticasone/Salmeterol [Advair 1 puff INHALATION RT-BID 05/31/16 08/03/21 History 500-50 Diskus] Gabapentin [Neurontin] 300 mg PO BID 04/07/19 08/03/21 History Levalbuterol Hfa Inhaler [Xopenex 1 puff INHALATION RT-Q6H PRN 04/07/19 08/03/21 History Hfa Inhaler] Calcium Carbonate [Calcium] 1,200 mg PO DAILY 04/29/19 08/03/21 History Letrozole [Femara] 2.5 mg PO DAILY 10/23/19 08/03/21 History Albuterol Nebulized [Ventolin 2.5 mg INHALATION RT-QID PRN 11/04/20 08/03/21 History Nebulized] Docusate [Colace] 100 mg PO DAILY 01/09/21 08/03/21 History buPROPion HCL [Wellbutrin SR] 100 mg PO BID 01/09/21 08/03/21 History Aspirin [[place] Aspirin EC] 81 mg PO DAILY 07/27/21 08/03/21 History Atorvastatin [Lipitor] 80 mg PO HS #90 tab 07/29/21 08/03/21 Rx Clopidogrel [Plavix] 75 mg PO DAILY #90 tab 07/29/21 08/03/21 Rx ALPRAZolam [Xanax] 0.25 mg PO BID PRN 08/03/21 08/03/21 History Cholecalciferol [Vitamin D3 (25 50 mcg PO DAILY 08/03/21 08/03/21 History Mcg = 1000 Iu)] Tiotropium 2.5 Mcg/Puff [Spiriva 2 puff INHALATION RT-DAILY 08/03/21 08/03/21 History Respimat 2.5 Mcg] Allergies Allergy/AdvReac Type Severity Reaction Status Date / Time banana Allergy Abdominal Verified 08/03/21 10:38 Pain budesonide [From Pulmicort] Allergy Dyspnea Verified 08/03/21 10:38 Iodinated Contrast Media Allergy Anaphylaxis Verified 08/03/21 10:38 [Iodinated Contrast Media - IV Dye] penicillin G Allergy Rash/Hives Verified 08/03/21 10:38 codeine AdvReac Nausea & Verified 08/03/21 10:38 Vomiting levofloxacin AdvReac joint pain Verified 08/03/21 10:38 verapamil AdvReac HEADACHE Verified 08/03/21 10:38 Physical Exam Vitals: Vital Signs Temp Pulse Pulse Resp BP BP Pulse Ox 08/04/21 07:50 93 L 08/04/21 05:45 98.7 F 98 20 122/79 08/04/21 02:02 98.3 F 82 18 133/73 95 08/03/21 21:53 98.5 F 98 20 121/60 98 08/03/21 19:15 20 08/03/21 18:19 18 08/03/21 15:51 18 08/03/21 12:23 94 20 137/65 100 08/03/21 09:29 97.6 F 100 18 131/107 100 Intake and Output 08/03/21 08/04/21 08/04/21 22:59 06:59 14:59 Intake Total 150 Balance 150 Intake: IV 150 Sodium Chloride 0.9% 1, 150 000 ml @ 75 mls/hr IV . [id number] PAO Rx#:[id number] Other: Voiding Method Bedside Commode # Voids 1 3 Weight 48.988 kg General appearance: The patient is alert, oriented, appears in no acute distress. HET: Head is normocephalic and atraumatic. Conjunctiva pink. Sclera anicteric. Neck: Supple without lymphadenopathy. Trachea midline. Heart: S1 S2. Regular rate and rhythm. Lungs: Respirations are even. Expiratory wheeze. Decreased lung sounds bilaterally. Abdomen: Soft, tenderness in epigastric region, nondistended with bowel sounds. No guarding or rigidity. Skin: No rashes. No jaundice. Extremities: Normal skin color and turgor. No pedal edema. Neurological: No focal deficits. Alert and oriented x3. Results CBC & Chem 7: 08/04/21 05:32 08/04/21 05:36 Labs: Abnormal Lab Results - Last 24 Hours (Table) 08/03/21 08/03/21 08/03/21 Range/Units 09:50 09:50 09:50 RBC 3.03 L (3.80-5.40) m/uL Hgb 9.2 L D (11.4-16.0) gm/dL Hct 28.3 L (34.0-46.0) % Lymphocytes # 0.5 L (1.0-4.8) k/uL D-Dimer 1.38 H (<0.60) mg/L FEU Potassium 3.0 L (3.5-5.1) mmol/L Carbon Dioxide 36 H (22-30) mmol/L Creatinine 0.32 L (0.52-1.04) mg/dL Calcium 8.0 L (8.4-10.2) mg/dL Total Protein 5.1 L (6.3-8.2) g/dL Albumin 2.9 L (3.5-5.0) g/dL Urine Protein (Negative) Urine Ketones (Negative) Ur Leukocyte Esterase (Negative) Urine Mucus (None) /hpf 08/03/21 08/03/21 Range/Units 13:27 22:46 RBC 2.77 L (3.80-5.40) m/uL Hgb 8.4 L (11.4-16.0) gm/dL Hct 26.3 L (34.0-46.0) % Lymphocytes # 0.5 L (1.0-4.8) k/uL D-Dimer (<0.60) mg/L FEU Potassium (3.5-5.1) mmol/L Carbon Dioxide (22-30) mmol/L Creatinine (0.52-1.04) mg/dL Calcium (8.4-10.2) mg/dL Total Protein (6.3-8.2) g/dL Albumin (3.5-5.0) g/dL Urine Protein Trace H (Negative) Urine Ketones 1+ H (Negative) Ur Leukocyte Esterase Trace H (Negative) Urine Mucus Rare H (None) /hpf Assessment and Plan (1) Anemia Narrative/Plan: This 66-year-old female with multiple comorbidities including recent revascularization for peripheral arterial disease who was started on aspirin and Plavix. She came in with shortness of breath and was noted to have a drop in her hemoglobin from her previous admission. On admission she was 9.2 and subsequently dropped to 8.1. She denies any black stool or blood in her stool. She does state however she is having epigastric pain that started a couple days ago. She admits to heavy use of ibuprofen and was taking 800 mg 3 times a day for several years until 2 weeks ago. Recalls her disease, however states many years ago she did undergo an EGD and was told she had a hiatal hernia. Her last colonoscopy was less than [address] Hardin which she states was normal. Unclear etiology at this time the possibilities include AVM, peptic ulcer disease, gastritis, esophagitis or other possible etiologies. Would recommend proceeding with EGD tomorrow. Hold Plavix. Will consult with pulmonology for evaluation if patient's battery status is stable to undergo EGD. Patient was also diagnosed approximately 2 weeks ago with coronavirus. Current Visit: Yes Status: Acute Code(s): D64.9 - ANEMIA, UNSPECIFIED SNOMED Code(s): 283133586 (2) Epigastric pain Current Visit: Yes Status: Acute Code(s): R10.13 - EPIGASTRIC PAIN SNOMED Code(s): 15974765 (3) Peripheral arterial disease with history of revascularization Current Visit: Yes Status: Acute Code(s): I73.9 - PERIPHERAL VASCULAR DISEASE, UNSPECIFIED; Z98.890 - OTHER SPECIFIED POSTPROCEDURAL STATES SNOMED Code(s): 135790865 (4) Dyspnea Current Visit: Yes Status: Acute Code(s): R06.00 - DYSPNEA, UNSPECIFIED SNOMED Code(s): 137793670 (5) Atrial fibrillation Current Visit: Yes Status: Acute Code(s): I48.91 - UNSPECIFIED ATRIAL FIBRILLATION SNOMED Code(s): 21260883 (6) COPD (chronic obstructive pulmonary disease) Narrative/Plan: Pulmonology consulted. Appreciate their recommendations on proceeding with upper endoscopy. Current Visit: Yes Status: Acute Code(s): J44.9 - CHRONIC OBSTRUCTIVE PULMONARY DISEASE, UNSPECIFIED SNOMED Code(s): 79812254 Plan: 1. Continue symptomatic and supportive care 2. Hold Plavix 3. Protonix 40 mg twice a day 4. Avoid NSAID use 5. Anemia panel ordered, CBC daily 6. Stool occult blood ordered 7. Nothing by mouth after midnight 8. Pulmonology consulted for history of COPD with possible COPD exacerbation, COVID-19. Appreciate recommendations if patient is stable respiratory shearer to undergo upper endoscopy. 9. Patient is tentatively scheduled for EGD tomorrow. Procedure discussed with patient including risks and benefits, patient is agreeable to proceed and cl eared by pulmonology. Thank you for this consultation, we will continue to follow. Dr. Calixto Schwartz I agree with the dictator's note, documented as a scribe by Melissa Turcios.
[2021-08-04] MEDS: DEXAMETHASONE SOD PHOSPHATE 10 MG/ML 1 ML VIAL IVP SCH (11:51)
[2021-08-04 12:46] LABS: Amylase <30 U/L (30-110); LDH 678 U/L (313-618); Lipase 41 U/L (23-300)
[2021-08-04 12:59] LABS: C Reactive Protein 17.9 mg/dL (<1.0)
[2021-08-04 13:58] VITALS: BMI 19.1
--- NOTE | 2021-08-04 14:04 | P.PN ---
Subjective Progress Note Date: 08/04/21 Patient is a 66-year-old female came in with complaints of epigastric abdominal burning sensation along with nausea. Patient is on aspirin and Plavix at home patient had a stent in the right femoral artery for peripheral vascular disease about a week ago. Patient was diagnosed with COVID-19 at that time as well. Patient denied any increased shortness of breath does have wheezing on exam does have advanced COPD history patient is on 2 L of oxygen presently doesn't smoke. Patient does have history of chronic A. fib presently in atrial fibrillation with rapid ventricular rate. Patient was also complaining of loose stools but never checked the color of the stools. Patient may be having GI bleed, there is concern for this because of her drop in hemoglobin from 12-9.2 compared to her last hospitalization admission. Patient's troponins are not elevated patient denied any chest pain at this time. Patient does have some wheezing on exam. Patient was complaining of generalized fatigue and weakness 08/04/2021 Patient evaluated resting in bed. Main complaint is diffuse abdominal pain over the periumbilical region, with epigastric burning sensation. Patient states no BM since she came in which was loose at that time. States she is passing some gas but not much, as well as nausea but no vomiting. Patient with bruising to her right groin and significant bruising to her right arm s/p bilateral femoral artery stent about 1 week with right groin and right radial access. Bounding pulse noted in the right groin which is hard to palpation however was slightly reducible with manual pressure held. Continue to monitor closely. Plan is for EGD in the morning with GI services and aspirin Plavix are currently on hold now. Covid positive since 07/27/21, on home oxygen at 2L NC with saturations 97% dose have some faint rales posterior bases, no wheezing noted. She states cough is more congested and prominent than yesterday. Blood pressure 103/68 she is afebrile, heart rate 107 in afib. Today hemoglobin is 8.1, d-dimer 1.55, sodium 141, potassium 3.7 which is improved with supplementation. calcium 7.8. Patient is being followed closely by multiple consultations including pulmonary, cardi ology and GI services. Review of Systems Constitutional: Denied any fever, reports fatigue Cardio vascular: denied any chest pain, palpitations Gastrointestinal: Denies BM for 2 days, was loose, reports nausea, no vomiting, reports abdominal pain Pulmonary: Reports shortness of breath, worsening congested cough no sputum production Neurologic: denied any new focal deficits All inpatient medications were reviewed and appropriate changes in these medications as dictated in the interval history and assessment and plan. PHYSICAL EXAMINATION: GENERAL: The patient is alert and oriented x3, appears fatigued. Thin built cachectic female HEENT: Pupils are round and equally reacting to light. EOMI. No scleral icterus. No conjunctival pallor. Normocephalic, atraumatic. No pharyngeal erythema. No thyromegaly. CARDIOVASCULAR: S1 and S2 present. No murmurs, rubs, or gallops. PULMONARY: Posterior rales noted ABDOMEN: Soft, is mild tenderness in the epigastric and periumbical area nondistended, normoactive bowel sounds. Dullness on percusion left lower quadrant extending into the LUQ and midline. No palpable organomegaly. MUSCULOSKELETAL: No joint swelling or deformity. EXTREMITIES: No cyanosis, clubbing, or pedal edema. NEUROLOGICAL: Gross neurological examination did not reveal any focal deficits. SKIN: No rashes. Assessment and plan -Anemia, Possible acute upper GI bleed vs postoperative anemia/medication affect, continue to hold off on aspirin and Plavix, EGD tomorrow and can resume once cleared with GI. -Severe peripheral vascular disease s/p elective femoral bypass was discharged on aspirin and plavix -COPD mild with mild acute exacerbation, continue symbicort and continue with inhalational treatments -Atrial tachycardia as reported by cardiology with no evidence for atrial fibrillation, patient not on anticoagulation and is not recommended by cardiology. History of atrial fibrillation per medical record. -Hypokalemia, improved post supplementation -COVID-19 pneumonia which was recently diagnosed about a week ago. Pt with worsening cough and shortness of breath today, started on IV Decadron by pulmonary team. -Elevated D-Dimer which is consistent with covid infection -Elevated inflammatory markers which is consistent with covid infection -Gastoresophageal reflux disease continue on protonix -Hyperlipidemia -History of Sjogren's on plaquenil which is continued -History of breast cancer follows with Dr Ayers, on femara -Remote history of tobacco use, quit in 2016 DVT prophylaxis: No pharmacological anticoagulation at this time because of possible upper GI bleed, we'll use SCDs GI Prophylaxis: Protonix Full Code Plan EGD tomorrow Repeat labs in AM Hold aspirin/plavix for now IV decadron PT/OT consultation Objective - Vital Signs Vital signs: Vital Signs Temp 98.5 F 08/04/21 10:00 Pulse 98 08/04/21 10:00 Resp 14 08/04/21 10:00 BP 132/64 08/04/21 10:00 Pulse Ox 97 08/04/21 10:00 Intake & Output 08/03/21 08/04/21 08/04/21 18:59 06:59 18:59 Intake Total 150 Balance 150 Weight 48.988 kg Intake: IV 150 Sodium Chloride 0.9% 1, 150 000 ml @ 75 mls/hr IV . [id number] [facility] Rx#:[id number] Other: Voiding Method Bedside Commode Bedside Commode # Voids 1 3 - Labs CBC & Chem 7: 08/04/21 05:32 08/04/21 05:36 Labs: Abnormal Lab Results - Last 24 Hours (Table) 08/03/21 08/03/21 08/04/21 Range/Units 13:27 22:46 05:32 RBC 2.77 L 2.66 L (3.80-5.40) m/uL Hgb 8.4 L 8.1 L (11.4-16.0) gm/dL Hct 26.3 L 25.4 L (34.0-46.0) % Lymphocytes # 0.5 L 0.6 L (1.0-4.8) k/uL D-Dimer (<0.60) mg/L FEU BUN (9.0-27.0) mg/dL Creatinine (0.6-1.5) mg/dL BUN/Creatinine Ratio (12.00-20.00) Ratio Glucose (70-110) mg/dL Calcium (8.7-10.3) mg/dL Lactate Dehydrogenase (313-618) U/L C-Reactive Protein (<1.0) mg/dL Amylase (30-110) U/L Urine Protein Trace H (Negative) Urine Ketones 1+ H (Negative) Ur Leukocyte Esterase Trace H (Negative) Urine Mucus Rare H (None) /hpf 08/04/21 08/04/21 08/04/21 Range/Units 05:36 11:41 11:41 RBC (3.80-5.40) m/uL Hgb (11.4-16.0) gm/dL Hct (34.0-46.0) % Lymphocytes # (1.0-4.8) k/uL D-Dimer 1.55 H (<0.60) mg/L FEU BUN 6.3 L (9.0-27.0) mg/dL Creatinine 0.3 L (0.6-1.5) mg/dL BUN/Creatinine Ratio 22.11 H (12.00-20.00) Ratio Glucose 69 L (70-110) mg/dL Calcium 7.8 L (8.7-10.3) mg/dL Lactate Dehydrogenase 678 H (313-618) U/L C-Reactive Protein 17.9 H (<1.0) mg/dL Amylase <30 L (30-110) U/L Urine Protein (Negative) Urine Ketones (Negative) Ur Leukocyte Esterase (Negative) Urine Mucus (None) /hpf Assessment and Plan Time with Patient: Greater than 30
--- NOTE | 2021-08-04 16:09 | P.CNPUL ---
History of Present Illness Consult date: 08/04/21 Reason for consult: COPD History of present illness: This is a 66-year-old female patient with known history of advanced COPD, oxygen dependent was currently admitted for some GI symptoms mainly in the form of epigastric pain and discomfort and nausea along with COVID 19 infection. The patient was diagnosed having COVID 19 on 07/27/2021 and at that time the patient was hospitalized for surgical intervention as the patient was found to have severe peripheral vascular disease, symptomatically claudication. The patient underwent PTCA/anoplasty by Dr. Medley from cardiology. At the same time, the patient was incidentally found to be positive for: COVID 19. The procedure was completed and the patient was discharged home. The patient denies having any worsening shortness of breath. She remains on O2 at 2 L. She has history of chronic atrial fibrillation. She came in with nausea, epigastric discomfort and loose stools. She is also getting weak and debilitated. Her has been also diagnosed having COVID 19 19 and currently is admitted for: Pneumonia and hypoxemia. For now, the patient is being investigated also for a GI bleed. She was taken off aspirin and Plavix. She is supposed to have an EGD tomorrow. Overall respiratory status is stable. Chest x-ray is not showing any acute worsening. Findings are essentially similar and the patient has emphysema. Review of Systems CONSTITUTIONAL: As mentioned in HPI HEENT: No recent visual problems or hearing problems. Denied any sore throat. CARDIOVASCULAR: No chest pain, orthopnea, PND, no palpitations, no syncope. PULMONARY: No shortness of breath, no cough, no hemoptysis. Nevertheless, the patient's chronic dyspnea congested cough. GASTROINTESTINAL: As mentioned in HPI : Neurologically, the patient has global generalized weakness. No headaches, no weakness, no numbness. Rheumatological, the patient has Sjogren's disease and the patient is demented on Plaquenil HEMATOLOGICAL: Denies any bleeding or petechiae. GENITOURINARY: Denies any burning micturition, frequency, or urgency. MUSCULOSKELETAL/RHEUMATOLOGICAL: Denies any joint pain, swelling, or any muscle pain. ENDOCRINE: Denies any polyuria or polydipsia. Past Medical History Past Medical History: Atrial Fibrillation, Cancer, COPD, GERD/Reflux, Hyperlipidemia, Pneumonia, Respiratory Disorder, Vascular Disorder Additional Past Medical History / Comment(s): COVID +, L upper lobe nodule being monitored, home oxygen at 2L/NC ATC, PVD, osteoporosis, constipation. History of Any Multi-Drug Resistant Organisms: None Reported Past Surgical History: Breast Surgery, Cholecystectomy, Hysterectomy, Orthopedic Surgery Additional Past Surgical History / Comment(s): 07/29/21 L iliac percutaneous balloon angioplasty with stent/atherectomy/PTBA L femoral artery/TRAIN ENGINEER R femoral artery/R iliac stent, abdominal aortagram, bronchoscopies with biopsy, bilateral wrist carpal tunnel, TMJ surgery, left neck cyst removed, colonoscopy, left breast lumpectomy. Past Anesthesia/Blood Transfusion Reactions: Previous Problems w/ Anesthesia Additional Past Anesthesia/Blood Transfusion Reaction / Comment(s): SLOW TO WAKE UP. Smoking Status: Former smoker - Past Family History Father Family Medical History: Cancer Additional Family Medical History / Comment(s): LUNG CANCER. Mother Family Medical History: Cancer Additional Family Medical History / Comment(s): BREAST CANCER. Medications and Allergies Home Medications Medication Instructions Recorded Confirmed Type Hydroxychloroquine Sulfate 200 mg PO BID 03/29/15 08/03/21 History [Plaquenil] Pantoprazole Sodium [Protonix] 40 mg PO DAILY 03/29/15 08/03/21 History Fluticasone/Salmeterol [Advair 1 puff INHALATION RT-BID 05/31/16 08/03/21 History 500-50 Diskus] Gabapentin [Neurontin] 300 mg PO BID 04/07/19 08/03/21 History Levalbuterol Hfa Inhaler [Xopenex 1 puff INHALATION RT-Q6H PRN 04/07/19 08/03/21 History Hfa Inhaler] Calcium Carbonate [Calcium] 1,200 mg PO DAILY 04/29/19 08/03/21 History Letrozole [Femara] 2.5 mg PO DAILY 10/23/19 08/03/21 History Albuterol Nebulized [Ventolin 2.5 mg INHALATION RT-QID PRN 11/04/20 08/03/21 History Nebulized] Docusate [Colace] 100 mg PO DAILY 01/09/21 08/03/21 History buPROPion HCL [Wellbutrin SR] 100 mg PO BID 01/09/21 08/03/21 History Aspirin [Lavon Aspirin EC] 81 mg PO DAILY 07/27/21 08/03/21 History Atorvastatin [Lipitor] 80 mg PO HS #90 tab 07/29/21 08/03/21 Rx Clopidogrel [Plavix] 75 mg PO DAILY #90 tab 07/29/21 08/03/21 Rx ALPRAZolam [Xanax] 0.25 mg PO BID PRN 08/03/21 08/03/21 History Cholecalciferol [Vitamin D3 (25 50 mcg PO DAILY 08/03/21 08/03/21 History Mcg = 1000 Iu)] Tiotropium 2.5 Mcg/Puff [Spiriva 2 puff INHALATION RT-DAILY 08/03/21 08/03/21 History Respimat 2.5 Mcg] Allergies Allergy/AdvReac Type Severity Reaction Status Date / Time banana Allergy Abdominal Verified 08/03/21 10:38 Pain budesonide [From Pulmicort] Allergy Dyspnea Verified 08/03/21 10:38 Iodinated Contrast Media Allergy Anaphylaxis Verified 08/03/21 10:38 [Iodinated Contrast Media - IV Dye] penicillin G Allergy Rash/Hives Verified 08/03/21 10:38 codeine AdvReac Nausea & Verified 08/03/21 10:38 Vomiting levofloxacin AdvReac joint pain Verified 08/03/21 10:38 verapamil AdvReac HEADACHE Verified 08/03/21 10:38 Physical Exam Vitals: Vital Signs Temp Pulse Resp BP Pulse Ox 08/04/21 10:00 98.5 F 98 14 132/64 97 08/04/21 07:50 93 L 08/04/21 05:45 98.7 F 98 20 122/79 08/04/21 02:02 98.3 F 82 18 133/73 95 08/03/21 21:53 98.5 F 98 20 121/60 98 08/03/21 19:15 20 08/03/21 18:19 18 Intake and Output 08/04/21 08/04/21 08/04/21 06:59 14:59 22:59 Other: # Voids 3 Weight 48.988 kg GENERAL EXAM: Alert, pleasant 65-year-old female patient, on 2 L nasal cannula, comfortable in no apparent distress. HEAD: Normocephalic. EYES: Normal reaction of pupils, equal size. NOSE: Clear with pink turbinates. THROAT: No erythema or exudates. NECK: No masses, no JVD. CHEST: No chest wall deformity. LUNGS: Equal air entry with bilateral end expiratory wheeze, diminished. CVS: S1 and S2 normal with no audible murmur, regular rhythm. ABDOMEN: No hepatosplenomegaly, normal bowel sounds, no guarding or rigidity. SPINE: No scoliosis or deformity SKIN: No rashes CENTRAL NERVOUS SYSTEM: No focal deficits, tone is normal in all 4 extremities. EXTREMITIES: There is no peripheral edema. No clubbing, no cyanosis. Peripheral pulses are intact. Results - Laboratory Findings CBC and BMP: 08/04/21 05:32 08/04/21 05:36 PT/INR, D-dimer PT 10.0 sec (9.0-12.0) 08/03/21 09:50 INR 0.9 (<1.2) 08/03/21 09:50 D-Dimer 1.55 mg/L FEU (<0.60) H 08/04/21 11:41 Abnormal lab findings: Abnormal Labs 08/03/21 08/03/21 08/03/21 09:50 09:50 09:50 RBC 3.03 L Hgb 9.2 L D Hct 28.3 L Lymphocytes # 0.5 L D-Dimer 1.38 H Potassium 3.0 L Carbon Dioxide 36 H BUN Creatinine 0.32 L BUN/Creatinine Ratio Glucose Calcium 8.0 L Lactate Dehydrogenase C-Reactive Protein Total Protein 5.1 L Albumin 2.9 L Amylase Urine Protein Urine Ketones Ur Leukocyte Esterase Urine Mucus 08/03/21 08/03/21 08/04/21 13:27 22:46 05:32 RBC 2.77 L 2.66 L Hgb 8.4 L 8.1 L Hct 26.3 L 25.4 L Lymphocytes # 0.5 L 0.6 L D-Dimer Potassium Carbon Dioxide BUN Creatinine BUN/Creatinine Ratio Glucose Calcium Lactate Dehydrogenase C-Reactive Protein Total Protein Albumin Amylase Urine Protein Trace H Urine Ketones 1+ H Ur Leukocyte Esterase Trace H Urine Mucus Rare H 08/04/21 08/04/21 08/04/21 05:36 11:41 11:41 RBC Hgb Hct Lymphocytes # D-Dimer 1.55 H Potassium Carbon Dioxide BUN 6.3 L Creatinine 0.3 L BUN/Creatinine Ratio 22.11 H Glucose 69 L Calcium 7.8 L Lactate Dehydrogenase 678 H C-Reactive Protein 17.9 H Total Protein Albumin Amylase <30 L Urine Protein Urine Ketones Ur Leukocyte Esterase Urine Mucus - Diagnostic Findings Chest x-ray: image reviewed Assessment and Plan Plan: 1 advanced COPD with an FEV1 of 35% of predicted and the patient has chronic hypoxic respiratory failure admitted on oxygen 2 L per minute nasal cannula 2 acute COVID 19 infection diagnosed on 07/27/2021. The patient may be having some GI symptoms related to the COVID 19. No acute signs of pneumonia or S4 decompensation related to the infection 3 epigastric discomfort, nausea and possible/questionable GI bleed currently under investigation 4 extreme debility secondary to above-mentioned comorbidities and the patient has a body mass index of 19 5 history of Sjogren's disease maintained on Plaquenil outpatient basis 6 hyperlipidemia 7 history of breast cancer 8 acute tachycardia 9 severe peripheral vascular disease with recent elective vascular intervention, stenting, due to symptomatic peripheral vascular disease and claudication. 10 previous history of left upper lobe pulmonary nodules being monitored 11 former smoker Plan Patient is quite debilitated. The patient is signs of respiratory decompensation at this point in time. She is on same oxygen requirements between 2 and 3 L. We'll given a course of Decadron 6 mg for the next 7-10 da ys.. The GI symptoms that she is having is probably related to COVID 19. Questionable GI bleed. Hemoglobin is dropped and the patient is to undergo an EGD tomorrow. Continue the rest of the supportive care. Amylase and lipase are within normal limits. Inflammatory markers degenerative low. LFTs are normal. We'll continue to follow.
[2021-08-04] MEDS: ALPRAZolam 0.25 MG TAB PO PRN (21:46)
[2021-08-04] MEDS: ATORVASTATIN 80 MG TAB PO SCH (21:48)
[2021-08-04 23:30] LABS: % Iron Saturation 7.94 (12.00-45.00)
[2021-08-05] MEDS ORDERED: PROPOFOL 10 MG/ML 20 ML VIAL IV ONE (08:06)
--- NOTE | 2021-08-05 08:15 | P.PCN ---
Date of Procedure: 08/05/21 Procedure(s) Performed: BRIEF HISTORY: Patient is a 66-year-old, pleasant, white female admitted hospital with acute exacerbation of COPD and recent recurrent infection. His been complaining of severe epigastric pain and was noted to have anemia with hemoglobin of 8.3 g/dL during the hospitalization. She is scheduled for an upper endoscopy as a part of evaluation of severe epigastric pain for the last 2 days' duration.. PROCEDURE PERFORMED: Esophagogastroduodenoscopy with biopsy. PREOPERATIVE DIAGNOSIS: Severe epigastric pain of 1 day duration and anemia. IV sedation per anesthesia. PROCEDURE: After informed consent was obtained, the patient was brought into the endoscopy unit. IV sedation was administered by Anesthesia under continuous monitoring. Initially the Olympus GIF-140 video endoscope was inserted into the mouth. Esophagus intubated without any difficulty. It was gradually advanced into the stomach and duodenum and carefully examined. The bulb and the second part of the duodenum appeared normal. The scope at this time was withdrawn to the stomach, adequately insufflated with air, and upon careful examination, mucosa of the antrum, body, had diffuse gastritis and biopsies were done from this area. The cardia and the fundus appeared normal. The scope was then withdrawn into the esophagus. The GE junction was located at 35 cm from the incisors. There was erosions with exudates in the distal esophagus consistent with LA grade B reflux esophagitis The rest of the esophagus appeared normal. The patient tolerated the procedure well. IMPRESSION: 1. Diffuse erosive gastritis involving the distal body and antrum of the stomach but no evidence of peptic ulcer disease. 2. Erosions in the distal esophagus consistent with LA grade B reflux esophagitis. RECOMMENDATIONS: The findings of this examination were discussed with the patient . She'll be continued on Protonix 40 mg twice daily. Diet will be advanced as tolerated.,.
[2021-08-05] MEDS ORDERED: IV FLUID CONTINUATION 300 ML IV ONE (08:16)
[2021-08-05] MEDS: TIOTROPIUM 2.5 MCG INHALER INHALATION SCH (08:47)
[2021-08-05] MEDS: ALBUTEROL HFA INHALER INHALATION SCH ×4 (08:47→19:39)
[2021-08-05] MEDS: SYMBICORT 160-4.5 MCG INHALER INHALATION SCH ×2 (08:49→19:39)
[2021-08-05] MEDS: PANTOPRAZOLE 40 MG/10 ML VIAL IVP SCH ×2 (09:07→20:45)
[2021-08-05] MEDS: SODIUM CHLORIDE 0.9% 1,000 ML IV SCH (09:07)
[2021-08-05] MEDS: DEXAMETHASONE SOD PHOSPHATE 10 MG/ML 1 ML VIAL IVP SCH (09:07)
[2021-08-05 09:21] LABS: Basophils # (A) 0 X 10*3/uL (0.00-0.10); Basophils % (A) 0 %; Eosinophils # (A) 0 X 10*3/uL (0.04-0.35); Eosinophils % (A) 0 %; HCT 24.7 % (37.2-46.3); HGB 7.4 g/dL (12.0-15.0); Immature Grans, Automated 1.2 %; Lymphocytes # (A) 0.39 X 10*3/uL (0.90-5.00); Lymphocytes % (A) 6.9 %; MCH 28.6 pg (27.0-32.0); MCV 95.4 fL (80.0-97.0); Mean Platelet Volume 10.3 fL (9.5-12.2); Monocytes # (A) 0.36 X 10*3/uL (0.20-1.00); Monocytes % (A) 6.4 %; NRBC Per 100 WBC 0 /100 WBCS (0.0-0.0); Neutrophils # (A) 4.82 X 10*3/uL (1.80-7.70); Neutrophils % (A) 85.5 %; Platelet Count 241 X 10*3/uL (140-440); RBC 2.59 X 10*6/uL (4.10-5.20); RDW 13.9 % (11.5-14.5); WBC 5.64 X 10*3/uL (4.50-10.00)
[2021-08-05 09:34] LABS: African American GFR (CKD) 137.3 (60.0-200.0); Anion Gap 7.5 mmol/L (10.00-18.00); BUN/Creat Ratio 29.33 Ratio (12.00-20.00); Blood Urea Nitrogen 8.8 mg/dL (9.0-27.0); Calcium 8.2 mg/dL (8.7-10.3); Carbon Dioxide 28.5 mmol/L (20.0-27.5); Non-African American GFR(CKD) 118.5 (60.0-200.0); Potassium 4.4 mmol/L (3.5-5.5)
[2021-08-05] MEDS: METOPROLOL TARTRATE 12.5 MG TAB PO SCH ×2 (09:35→20:45)
[2021-08-05] MEDS: GABAPENTIN 300 MG CAP PO SCH ×2 (09:35→20:45)
[2021-08-05] MEDS: CHOLECALCIFEROL 25 MCG (1000 IU) TABLET PO SCH (09:35)
[2021-08-05] MEDS: HYDROXYCHLOROQUINE SULFATE 200 MG TAB PO SCH ×2 (09:35→20:45)
[2021-08-05] MEDS: DOCUSATE 100 MG CAP PO SCH (09:35)
[2021-08-05] MEDS: buPROPion SR 100 MG TABLET.ER PO SCH ×2 (09:36→20:45)
[2021-08-05] MEDS: ASPIRIN 81 MG PO SCH (09:42)
[2021-08-05] MEDS: LETROZOLE 2.5 MG TAB PO SCH (09:42)
[2021-08-05] MEDS: CLOPIDOGREL 75 MG TAB PO SCH (09:42)
--- NOTE | 2021-08-05 11:59 | P.PN ---
Subjective This is a 65-year-old female with a past medical history significant for severe peripheral vascular disease s/p stenting of the left iliac and atherectomy and balloon angioplasty of the left femoral artery 07/27/21 and subsequent patient was brought she underwent BOWLING BALL GRADER of the right femoral artery and stenting of the right iliac 07/28/2021, Covid-19 diagnosted 07/27/2021, multifocal atrial tachycardia former nicotine dependence, COPD, and breast cancer. Patient follows in the office with Dr. Ascencio. We have been asked to see the patient in c onsultation for atrial fibrillation and GI Bleed. Patient presents to the emergency department due to complaints of decreased appetite, nausea, generalized weakness, and some shortness of breath. She denies any chest pain, palpitations, diaphoresis, lightheadedness, dizziness, syncope or near syncope. She denies any symptoms of cough, fever, chills, lower extremity edema, calf tenderness, and symptoms of orthopnea or PND. On admission patient found to have a hemoglobin of 9.2, previously was 10.9 prior to discharge from her previous hospitalization on 07/28/2021. She denies any bleeding in her stool. Denies any dark or tarry stools. 08/05/2021 She underwent EGD that revealed Diffuse erosive gastritis involving the distal body and antrum of the stomach but no evidence of peptic ulcer disease. Biopsies were performed. Erosions in the distal esophagus consistent with esophagitis.Telemetry reviewed, patient in a multifocal atrial rhythm, no evidence of atrial fibrillation. HR are better controlled today. She is maintained on atorvastatin 80mg daily, metoprolol tartrate 12.5mg BID PHYSICAL EXAM: VITAL SIGNS: Reviewed. GENERAL: Well-developed in no acute distress. HEENT: Head is normocephalic.Neck supple. No JVD or thyromegaly LUNGS: Respirations even and unlabored. Lungs with decreased air exchange bilaterally. HEART: Regular rate and rhythm. S1 and S2 heard. ABDOMEN: Soft. Nondistended. Nontender. EXTREMITIES: No lower extremity edema NEUROLOGIC: Awake and alert. Oriented x 3. ASSESSMENT: Multifocal atrial tachycardia Symptoms of generalized weakness, decreased appetite Anemia, could be from blood loss from recent procedure, patient denies any blood or dark stools Severe peripheral vascular disease s/p stenting of the left iliac and atherectomy and balloon angioplasty of the left femoral artery 07/27/21 and subsequent patient was brought she underwent BOWLING BALL GRADER of the right femoral artery and stenting of the right iliac 07/28/2021 Covid-19 infection diagnosed 07/27/2021 History of COPD History of breast cancer Former nicotine dependence PLAN: Continue metoprolol tartrate 12.5 mg twice a day and continue statin Per GI, ok to restart aspirin and Plavix we will restart those today. No evidence of atrial fibrillation, patient in a multifocal atrial tachycardia rhythm. No need for anticoagulation. We will follow the patient as needed. Please reach out with any further questions or concerns. Follow up outpatient in the office with Dr. Ascencio and Dr. Stewart. Patient's follow up appointment with Dr. Stewart was rescheduled for 08/15/2021. Nurse practitioner note has been reviewed by physician. Signing provider agrees with the documented findings, assessment, and plan of care. Objective - Vital Signs Vital signs: Vital Signs Temp 98.0 F 08/05/21 10:00 Pulse 84 08/05/21 10:00 Resp 19 08/05/21 10:00 BP 126/74 08/05/21 10:00 Pulse Ox 90 L 08/05/21 10:00 Intake & Output 08/04/21 08/05/21 08/05/21 18:59 06:59 18:59 Intake Total 100 Balance 100 Weight 48.988 kg Intake: IV 100 Other: Voiding Method Bedside Commode Bedside Commode # Voids 1 1 # Bowel Movements 1 - Labs CBC & Chem 7: 08/05/21 04:03 08/05/21 04:03 Labs: Abnormal Lab Results - Last 24 Hours (Table) 08/04/21 08/04/21 08/04/21 Range/Units 05:36 05:36 11:41 RBC (4.10-5.20) X 10*6/uL Hgb (12.0-15.0) g/dL Hct (37.2-46.3) % MCHC (32.0-37.0) g/dL Immature Gran # (0.00-0.04) X 10*3/uL Lymphocytes # (0.90-5.00) X 10*3/uL Eosinophils # (0.04-0.35) X 10*3/uL D-Dimer (<0.60) mg/L FEU Carbon Dioxide (20.0-27.5) mmol/L Anion Gap (10.00-18.00) mmol/L BUN (9.0-27.0) mg/dL Creatinine (0.6-1.5) mg/dL BUN/Creatinine Ratio (12.00-20.00) Ratio Glucose (70-110) mg/dL Calcium (8.7-10.3) mg/dL Iron 16 L (50-170) ug/dL TIBC 202 L (228-460) ug/dL % Saturation 7.94 L (12.00-45.00) Transferrin 144.0 L (204.0-354.0) mg/dL Lactate Dehydrogenase 678 H (313-618) U/L C-Reactive Protein 17.9 H (<1.0) mg/dL Amylase <30 L (30-110) U/L Vitamin B12 1406.0 H (200.0-944.0) pg/mL Procalcitonin 0.33 H (0.02-0.09) ng/mL 08/04/21 08/05/21 08/05/21 Range/Units 11:41 04:03 04:03 RBC 2.59 L (4.10-5.20) X 10*6/uL Hgb 7.4 L (12.0-15.0) g/dL Hct 24.7 L (37.2-46.3) % MCHC 30.0 L (32.0-37.0) g/dL Immature Gran # 0.07 H (0.00-0.04) X 10*3/uL Lymphocytes # 0.39 L (0.90-5.00) X 10*3/uL Eosinophils # 0 L (0.04-0.35) X 10*3/uL D-Dimer 1.55 H (<0.60) mg/L FEU Carbon Dioxide 28.5 H (20.0-27.5) mmol/L Anion Gap 7.50 L (10.00-18.00) mmol/L BUN 8.8 L (9.0-27.0) mg/dL Creatinine 0.3 L (0.6-1.5) mg/dL BUN/Creatinine Ratio 29.33 H (12.00-20.00) Ratio Glucose 125 H (70-110) mg/dL Calcium 8.2 L (8.7-10.3) mg/dL Iron (50-170) ug/dL TIBC (228-460) ug/dL % Saturation (12.00-45.00) Transferrin (204.0-354.0) mg/dL Lactate Dehydrogenase (313-618) U/L C-Reactive Protein (<1.0) mg/dL Amylase (30-110) U/L Vitamin B12 (200.0-944.0) pg/mL Procalcitonin (0.02-0.09) ng/mL
--- NOTE | 2021-08-05 12:09 | XR ---
EXAMINATION TYPE: XR chest 1V DATE OF EXAM: 08/05/2021 COMPARISON: Chest x-ray 08/03/2021 HISTORY: Congestive heart failure, abnormal chest x-ray TECHNIQUE: Single frontal view of the chest is obtained. FINDINGS: Bibasilar increased attenuation is present. Surgical clips present over the left breast. H emidiaphragms are obscured. There is no evident pneumothorax. Patient is rotated. Cardiac mediastinal silhouette is likely stable. Aorta is dense. Postprocedural change noted to the left hilum again not ed. IMPRESSION: Basilar effusions, correlate for interstitial and pulmonary edema, pneumonia not exclude d is underlying emphysema
--- NOTE | 2021-08-05 12:50 | P.PN ---
<Vanda Cifuentes - Last Filed: 08/05/21 12:33> Subjective Progress Note Date: 08/05/21 This is a 66-year-old female patient with known history of advanced COPD, oxygen dependent was currently admitted for some GI symptoms mainly in the form of epigastric pain and discomfort and nausea along with COVID 19 infection. The patient was diagnosed having COVID 19 on 07/27/2021 and at that time the patient was hospitalized for surgical intervention as the patient was found to have severe peripheral vascular disease, symptomatically claudication. The patient underwent PTCA/anoplasty by Dr. Medley from cardiology. At the same time, the patient was incidentally found to be positive for: COVID 19. The procedure was completed and the patient was discharged home. The patient denies having any worsening shortness of breath. She remains on O2 at 2 L. She has history of chronic atrial fibrillation. She came in with nausea, epigastric discomfort and loose stools. She is also getting weak and debilitated. Her has been also diagnosed having COVID 19 19 and currently is admitted for: Pneumonia and hypoxemia. For now, the patient is being investigated also for a GI bleed. She was taken off aspirin and Plavix. She is supposed to have an EGD tomorrow. Overall respiratory status is stable. Chest x-ray is not showing any acute worsening. Findings are essentially similar and the patient has emphysema. The patient is seen today 08/05/2021 in follow-up on the regular medical floor. She is currently sitting up in bed. Awake and alert in no acute distress. Chest x-ray reveals basilar effusions with some interstitial edema. There is also noted underlying emphysema. She is currently maintaining O2 saturations in the 90s on 2 L/m per nasal cannula. She's been afebrile. Hemodynamically stable. EGD was performed earlier this morning that revealed diffuse erosive gastritis involving the distal body and antrum of the stomach but no evidence of peptic ulcer disease. Erosion of the distal esophagus consistent with probably grade B reflux esophagitis. White count 5.6. Hemoglobin 7.4. Lymphocytes 0.39. Sodium 140. Potassium 4.4. Creatinine 0.3. Glucose 125. Stool for occult blood was negative. She is continued on Decadron, Symbicort, Spiriva, albuterol. Objective - Vital Signs Vital signs: Vital Signs Temp 98.0 F 03/04/22 10:00 Pulse 84 08/05/21 10:00 Resp 19 08/05/21 10:00 BP 126/74 08/05/21 10:00 Pulse Ox 90 L 08/05/21 10:00 Intake & Output 08/04/21 08/05/21 08/05/21 18:59 06:59 18:59 Intake Total 100 Balance 100 Weight 48.988 kg Intake: IV 100 Other: Voiding Method Bedside Commode Bedside Commode # Voids 1 1 # Bowel Movements 1 - Exam GENERAL EXAM: Alert, pleasant 65-year-old female patient, on 2 L nasal cannula, comfortable in no apparent distress. HEAD: Normocephalic. EYES: Normal reaction of pupils, equal size. NOSE: Clear with pink turbinates. THROAT: No erythema or exudates. NECK: No masses, no JVD. CHEST: No chest wall deformity. LUNGS: Equal air entry with bilateral end expiratory wheeze, diminished. CVS: S1 and S2 normal with no audible murmur, regular rhythm. ABDOMEN: No hepatosplenomegaly, normal bowel sounds, no guarding or rigidity. SPINE: No scoliosis or deformity SKIN: No rashes CENTRAL NERVOUS SYSTEM: No focal deficits, tone is normal in all 4 extremities. EXTREMITIES: There is no peripheral edema. No clubbing, no cyanosis. Peripheral pulses are intact. - Labs CBC & Chem 7: 08/05/21 04:03 08/05/21 04:03 Labs: Abnormal Lab Results - Last 24 Hours (Table) 08/04/21 08/04/21 08/04/21 Range/Units 05:36 05:36 11:41 RBC (4.10-5.20) X 10*6/uL Hgb (12.0-15.0) g/dL Hct (37.2-46.3) % MCHC (32.0-37.0) g/dL Immature Gran # (0.00-0.04) X 10*3/uL Lymphocytes # (0.90-5.00) X 10*3/uL Eosinophils # (0.04-0.35) X 10*3/uL D-Dimer (<0.60) mg/L FEU Carbon Dioxide (20.0-27.5) mmol/L Anion Gap (10.00-18.00) mmol/L BUN (9.0-27.0) mg/dL Creatinine (0.6-1.5) mg/dL BUN/Creatinine Ratio (12.00-20.00) Ratio Glucose (70-110) mg/dL Calcium (8.7-10.3) mg/dL Iron 16 L (50-170) ug/dL TIBC 202 L (228-460) ug/dL % Saturation 7.94 L (12.00-45.00) Transferrin 144.0 L (204.0-354.0) mg/dL Lactate Dehydrogenase 678 H (313-618) U/L C-Reactive Protein 17.9 H (<1.0) mg/dL Amylase <30 L (30-110) U/L Vitamin B12 1406.0 H (200.0-944.0) pg/mL Procalcitonin 0.33 H (0.02-0.09) ng/mL 08/04/21 08/05/21 08/05/21 Range/Units 11:41 04:03 04:03 RBC 2.59 L (4.10-5.20) X 10*6/uL Hgb 7.4 L (12.0-15.0) g/dL Hct 24.7 L (37.2-46.3) % MCHC 30.0 L (32.0-37.0) g/dL Immature Gran # 0.07 H (0.00-0.04) X 10*3/uL Lymphocytes # 0.39 L (0.90-5.00) X 10*3/uL Eosinophils # 0 L (0.04-0.35) X 10*3/uL D-Dimer 1.55 H (<0.60) mg/L FEU Carbon Dioxide 28.5 H (20.0-27.5) mmol/L Anion Gap 7.50 L (10.00-18.00) mmol/L BUN 8.8 L (9.0-27.0) mg/dL Creatinine 0.3 L (0.6-1.5) mg/dL BUN/Creatinine Ratio 29.33 H (12.00-20.00) Ratio Glucose 125 H (70-110) mg/dL Calcium 8.2 L (8.7-10.3) mg/dL Iron (50-170) ug/dL TIBC (228-460) ug/dL % Saturation (12.00-45.00) Transferrin (204.0-354.0) mg/dL Lactate Dehydrogenase (313-618) U/L C-Reactive Protein (<1.0) mg/dL Amylase (30-110) U/L Vitamin B12 (200.0-944.0) pg/mL Procalcitonin (0.02-0.09) ng/mL Assessment and Plan Assessment: 1 advanced COPD with an FEV1 of 35% of predicted and the patient has chronic h ypoxic respiratory failure admitted on oxygen 2 L per minute nasal cannula 2 acute COVID 19 infection diagnosed on 07/27/2021. The patient may be having some GI symptoms related to the COVID 19. No acute signs of pneumonia or S4 decompensation related to the infection 3 epigastric discomfort, nausea and possible/questionable GI bleed currently under investigation 4 extreme debility secondary to above-mentioned comorbidities and the patient has a body mass index of 19 5 history of Sjogren's disease maintained on Plaquenil outpatient basis 6 hyperlipidemia 7 history of breast cancer 8 acute tachycardia 9 severe peripheral vascular disease with recent elective vascular intervention, stenting, due to symptomatic peripheral vascular disease and claudication. 10 previous history of left upper lobe pulmonary nodules being monitored 11 former smoker Plan: The patient was seen and evaluated EGD results reviewed Continue Decadron, vitamin supplements Add Lovenox Continue bronchodilators Titrate down the FiO2 as tolerated Increase her activity as tolerated We'll continue to follow I, the cosigning physician, performed a history & physical examination of the pa tient. Lungs sounds with bilateral end expiratory wheeze, diminished. Maintaining good O2 saturations in the 90s on 2 L/m per nasal cannula. I discussed the assessment and plan of care with my nurse practitioner, Vanda Cifuentes. I attest to the above note as dictated by her. I have personally seen and examined the patient, performed the documentation and the assessment and plan as written. Number of minutes spent on the visit: 10. <Cecilia Munson - Last Filed: 08/05/21 15:32> Objective - Vital Signs Vital signs: Vital Signs Temp 97.9 F 08/05/21 14:00 Pulse 78 08/05/21 14:00 Resp 18 03/04/22 14:00 BP 109/66 08/05/21 14:00 Pulse Ox 98 08/05/21 14:00 Intake & Output 08/04/21 08/05/21 08/05/21 18:59 06:59 18:59 Intake Total 100 Balance 100 Weight 48.988 kg Intake: IV 100 Other: Voiding Method Bedside Commode Bedside Commode # Voids 1 1 # Bowel Movements 1 - Labs CBC & Chem 7: 08/05/21 04:03 08/05/21 04:03 Labs: Abnormal Lab Results - Last 24 Hours (Table) 08/04/21 08/04/21 08/05/21 Range/Units 05:36 05:36 04:03 RBC 2.59 L (4.10-5.20) X 10*6/uL Hgb 7.4 L (12.0-15.0) g/dL Hct 24.7 L (37.2-46.3) % MCHC 30.0 L (32.0-37.0) g/dL Immature Gran # 0.07 H (0.00-0.04) X 10*3/uL Lymphocytes # 0.39 L (0.90-5.00) X 10*3/uL Eosinophils # 0 L (0.04-0.35) X 10*3/uL Carbon Dioxide (20.0-27.5) mmol/L Anion Gap (10.00-18.00) mmol/L BUN (9.0-27.0) mg/dL Creatinine (0.6-1.5) mg/dL BUN/Creatinine Ratio (12.00-20.00) Ratio Glucose (70-110) mg/dL Calcium (8.7-10.3) mg/dL Iron 16 L (50-170) ug/dL TIBC 202 L (228-460) ug/dL % Saturation 7.94 L (12.00-45.00) Transferrin 144.0 L (204.0-354.0) mg/dL Vitamin B12 1406.0 H (200.0-944.0) pg/mL Procalcitonin 0.33 H (0.02-0.09) ng/mL 08/05/21 Range/Units 04:03 RBC (4.10-5.20) X 10*6/uL Hgb (12.0-15.0) g/dL Hct (37.2-46.3) % MCHC (32.0-37.0) g/dL Immature Gran # (0.00-0.04) X 10*3/uL Lymphocytes # (0.90-5.00) X 10*3/uL Eosinophils # (0.04-0.35) X 10*3/uL Carbon Dioxide 28.5 H (20.0-27.5) mmol/L Anion Gap 7.50 L (10.00-18.00) mmol/L BUN 8.8 L (9.0-27.0) mg/dL Creatinine 0.3 L (0.6-1.5) mg/dL BUN/Creatinine Ratio 29.33 H (12.00-20.00) Ratio Glucose 125 H (70-110) mg/dL Calcium 8.2 L (8.7-10.3) mg/dL Iron (50-170) ug/dL TIBC (228-460) ug/dL % Saturation (12.00-45.00) Transferrin (204.0-354.0) mg/dL Vitamin B12 (200.0-944.0) pg/mL Procalcitonin (0.02-0.09) ng/mL Assessment and Plan Assessment: I have personally seen and examined the patient and reviewed the documentation. I performed a joint evaluation with the nurse practitioner in this evaluation was done more than 20 minutes. I fully agree with the documentation above and the plan of care.
--- NOTE | 2021-08-05 13:44 | P.PN ---
Subjective Progress Note Date: 08/05/21 Patient is a 66-year-old female came in with complaints of epigastric abdominal burning sensation along with nausea. Patient is on aspirin and Plavix at home patient had a stent in the right femoral artery for peripheral vascular disease about a week ago. Patient was diagnosed with COVID-19 at that time as well. Patient denied any increased shortness of breath does have wheezing on exam does have advanced COPD history patient is on 2 L of oxygen presently doesn't smoke. Patient does have history of chronic A. fib presently in atrial fibrillation with rapid ventricular rate. Patient was also complaining of loose stools but never checked the color of the stools. Patient may be having GI bleed, there is concern for this because of her drop in hemoglobin from 12-9.2 compared to her last hospitalization admission. Patient's troponins are not elevated patient denied any chest pain at this time. Patient does have some wheezing on exam. Patient was complaining of generalized fatigue and weakness 08/04/2021 Patient evaluated resting in bed. Main complaint is diffuse abdominal pain over the periumbilical region, with epigastric burning sensation. Patient states no BM since she came in which was loose at that time. States she is passing some gas but not much, as well as nausea but no vomiting. Patient with bruising to her right groin and significant bruising to her right arm s/p bilateral femoral artery stent about 1 week with right groin and right radial access. Bounding pulse noted in the right groin which is hard to palpation however was slightly reducible with manual pressure held. Continue to monitor closely. Plan is for EGD in the morning with GI services and aspirin Plavix are currently on hold now. Covid positive since 07/27/21, on home oxygen at 2L NC with saturations 97% dose have some faint rales posterior bases, no wheezing noted. She states cough is more congested and prominent than yesterday. Blood pressure 103/68 she is afebrile, heart rate 107 in afib. Today hemoglobin is 8.1, d-dimer 1.55, sodium 141, potassium 3.7 which is improved with supplementation. calcium 7.8. Patient is being followed closely by multiple consultations including pulmonary, cardi ology and GI services. 08/05/2021 Patient evaluated today resting in bed, EGD this morning showed erosive gastritis as well as esophagitis. Patient will continue on IV protonix BID while inpatient and will add maalox as she is also on IV decadron. Overall she states she is feeling better, still with some mild epigastric discomfort, however denies burning today. She had a bowel movement this morning, soft, no blood reported. She is bloated and states she had a regular meal try and it was hard t o eat and felt like it was sticking, she wanted to stay on the liquid diet for one more day. Today lungs show faint expiratory wheezing posterior in upper and lower lobes as well as right anterior chest wall with expiratory wheezing. She still feels short of breath when ambulating, was able to get up into the restroom today. She has a congested cough with no sputum. There is also some mild pitting ankle edema, stopped IV fluids as she is tolerating oral liquids. Chest xray shows basilar effusions, correlated for interstitial and pulmonary edema, pneumonia not excluded, also with underlying emphysema. Labs today WBC 5.64, hgb 7.4, sodium 140, potassium 4.4, BUN 8.8, creat 0.3, glucose 125, calcium 8.2. Vitals today 98.0, heart rate 84, RR 19, blood pressure 126/74, 90% on 2L NC. Review of Systems Constitutional: Denied any fever, reports fatigue Cardio vascular: denied any chest pain, palpitations Gastrointestinal: Denies nausea, denies vomiting, reports abdominal pain, reports soft brown BM today no blood Pulmonary: Reports shortness of breath, worsening congested cough no sputum production Neurologic: denied any new focal deficits All inpatient medications were reviewed and appropriate changes in these medications as dictated in the interval history and assessment and plan. PHYSICAL EXAMINATION: GENERAL: The patient is alert and oriented x3, appears fatigued. Thin built cachectic female HEENT: Pupils are round and equally reacting to light. EOMI. No scleral icterus. No conjunctival pallor. Normocephalic, atraumatic. No pharyngeal erythema. No thyromegaly. CARDIOVASCULAR: S1 and S2 present. No murmurs, rubs, or gallops. PULMONARY: Posterior faint expiratory wheezing scattered ABDOMEN: Soft, is mild tenderness in the epigastric and periumbical area nondistended, hypoactive bowel sounds. No palpable organomegaly. MUSCULOSKELETAL: No joint swelling or deformity. EXTREMITIES: No cyanosis, clubbing, or pedal edema. NEUROLOGICAL: Gross neurological examination did not reveal any focal deficits. SKIN: No rashes. Assessment and plan -Anemia, normocytic, with erosive gastritis, esophagitis, ok to resume aspirin plavix per GI services, no signs of acute bleeding hemoglobin stable today -Severe peripheral vascular disease s/p elective femoral bypass on aspirin and plavix -COPD with mild acute exacerbation, continue symbicort and continue with inhalat ional treatments -Atrial tachycardia as reported by cardiology with no evidence for atrial fibrillation, patient not on anticoagulation and is not recommended by cardiology. History of atrial fibrillation per medical record. -Hypokalemia, improved post supplementation -COVID-19 pneumonia which was recently diagnosed about a week ago on 2L NC with pulse ox in the 's on IV decadron -Elevated D-Dimer which is consistent with covid infection -Elevated inflammatory markers which is consistent with covid infection -Gastoresophageal reflux disease continue on protonix, started maalox today -Hyperlipidemia -History of Sjogren's on plaquenil which is continued -History of breast cancer follows with Dr Ayers, on femara -Remote history of tobacco use, quit in 2016 -Generalized weakness secondary to chronic medical conditions DVT prophylaxis: Lovenox GI Prophylaxis: Protonix Full Code Plan Add maalox continue IV protonix Continue on IV decadron, updrafts Check BNP Repeat labs in AM PT/OT ongoing evaluation Objective - Vital Signs Vital signs: Vital Signs Temp 98.0 F 08/05/21 10:00 Pulse 84 08/05/21 10:00 Resp 19 08/05/21 10:00 BP 126/74 08/05/21 10:00 Pulse Ox 90 L 08/05/21 10:00 Intake & Output 08/04/21 08/05/21 08/05/21 18:59 06:59 18:59 Intake Total 100 Balance 100 Weight 48.988 kg Intake: IV 100 Other: Voiding Method Bedside Commode Bedside Commode # Voids 1 1 # Bowel Movements 1 - Labs CBC & Chem 7: 08/05/21 04:03 08/05/21 04:03 Labs: Abnormal Lab Results - Last 24 Hours (Table) 08/04/21 08/04/21 08/05/21 Range/Units 05:36 05:36 04:03 RBC 2.59 L (4.10-5.20) X 10*6/uL Hgb 7.4 L (12.0-15.0) g/dL Hct 24.7 L (37.2-46.3) % MCHC 30.0 L (32.0-37.0) g/dL Immature Gran # 0.07 H (0.00-0.04) X 10*3/uL Lymphocytes # 0.39 L (0.90-5.00) X 10*3/uL Eosinophils # 0 L (0.04-0.35) X 10*3/uL Carbon Dioxide (20.0-27.5) mmol/L Anion Gap (10.00-18.00) mmol/L BUN (9.0-27.0) mg/dL Creatinine (0.6-1.5) mg/dL BUN/Creatinine Ratio (12.00-20.00) Ratio Glucose (70-110) mg/dL Calcium (8.7-10.3) mg/dL Iron 16 L (50-170) ug/dL TIBC 202 L (228-460) ug/dL % Saturation 7.94 L (12.00-45.00) Transferrin 144.0 L (204.0-354.0) mg/dL Vitamin B12 1406.0 H (200.0-944.0) pg/mL Procalcitonin 0.33 H (0.02-0.09) ng/mL 08/05/21 Range/Units 04:03 RBC (4.10-5.20) X 10*6/uL Hgb (12.0-15.0) g/dL Hct (37.2-46.3) % MCHC (32.0-37.0) g/dL Immature Gran # (0.00-0.04) X 10*3/uL Lymphocytes # (0.90-5.00) X 10*3/uL Eosinophils # (0.04-0.35) X 10*3/uL Carbon Dioxide 28.5 H (20.0-27.5) mmol/L Anion Gap 7.50 L (10.00-18.00) mmol/L BUN 8.8 L (9.0-27.0) mg/dL Creatinine 0.3 L (0.6-1.5) mg/dL BUN/Creatinine Ratio 29.33 H (12.00-20.00) Ratio Glucose 125 H (70-110) mg/dL Calcium 8.2 L (8.7-10.3) mg/dL Iron (50-170) ug/dL TIBC (228-460) ug/dL % Saturation (12.00-45.00) Transferrin (204.0-354.0) mg/dL Vitamin B12 (200.0-944.0) pg/mL Procalcitonin (0.02-0.09) ng/mL Assessment and Plan Time with Patient: Less than 30
[2021-08-05] MEDS: MAG HYDROX/AL HYDROX/SIMETH 30 ML CUP PO SCH ×3 (14:21→21:51)
[2021-08-05] MEDS: ATORVASTATIN 80 MG TAB PO SCH (20:45)
[2021-08-06] MEDS: ALPRAZolam 0.25 MG TAB PO PRN (02:32)
[2021-08-06] MEDS: CLOPIDOGREL 75 MG TAB PO SCH (08:26)
[2021-08-06] MEDS: CHOLECALCIFEROL 25 MCG (1000 IU) TABLET PO SCH (08:26)
[2021-08-06] MEDS: DOCUSATE 100 MG CAP PO SCH (08:26)
[2021-08-06] MEDS: METOPROLOL TARTRATE 12.5 MG TAB PO SCH ×2 (08:26→21:23)
[2021-08-06] MEDS: ASPIRIN 81 MG PO SCH (08:26)
[2021-08-06] MEDS: DEXAMETHASONE SOD PHOSPHATE 10 MG/ML 1 ML VIAL IVP SCH (08:27)
[2021-08-06] MEDS: buPROPion SR 100 MG TABLET.ER PO SCH ×2 (08:27→21:23)
[2021-08-06] MEDS: ENOXAPARIN 40 MG/0.4 ML SYRINGE SQ SCH (08:27)
[2021-08-06] MEDS: GABAPENTIN 300 MG CAP PO SCH ×2 (08:28→21:23)
[2021-08-06] MEDS: PANTOPRAZOLE 40 MG/10 ML VIAL IVP SCH ×2 (08:28→21:23)
[2021-08-06] MEDS: LETROZOLE 2.5 MG TAB PO SCH (08:29)
[2021-08-06] MEDS: HYDROXYCHLOROQUINE SULFATE 200 MG TAB PO SCH ×2 (08:29→21:23)
[2021-08-06] MEDS: MAG HYDROX/AL HYDROX/SIMETH 30 ML CUP PO SCH ×4 (08:29→21:24)
[2021-08-06] MEDS: SYMBICORT 160-4.5 MCG INHALER INHALATION SCH ×2 (09:23→21:02)
[2021-08-06] MEDS: ALBUTEROL HFA INHALER INHALATION SCH ×4 (09:23→21:02)
[2021-08-06] MEDS: TIOTROPIUM 2.5 MCG INHALER INHALATION SCH (09:24)
[2021-08-06 11:50] LABS: African American GFR (CKD) 130.5 (60.0-200.0); BUN/Creat Ratio 27.57 Ratio (12.00-20.00); Blood Urea Nitrogen 9.7 mg/dL (9.0-27.0); Calcium 8.6 mg/dL (8.7-10.3); Carbon Dioxide 32.3 mmol/L (20.0-27.5); Non-African American GFR(CKD) 112.6 (60.0-200.0); Potassium 4.3 mmol/L (3.5-5.5)
[2021-08-06] MEDS: guaiFENesin 600 MG TABLET.ER PO SCH ×2 (11:51→21:23)
[2021-08-06 11:52] LABS: Basophils # (A) 0.01 X 10*3/uL (0.00-0.10); Basophils % (A) 0.1 %; Eosinophils # (A) 0.01 X 10*3/uL (0.04-0.35); Eosinophils % (A) 0.1 %; HCT 26.6 % (37.2-46.3); HGB 7.8 g/dL (12.0-15.0); Immature Grans, Automated 0.8 %; Lymphocytes # (A) 0.66 X 10*3/uL (0.90-5.00); MCH 28.8 pg (27.0-32.0); MCHC 29.3 g/dL (32.0-37.0); MCV 98.2 fL (80.0-97.0); Mean Platelet Volume 10.1 fL (9.5-12.2); Monocytes # (A) 0.77 X 10*3/uL (0.20-1.00); Monocytes % (A) 5.9 %; NRBC Per 100 WBC 0 /100 WBCS (0.0-0.0); Neutrophils # (A) 11.56 X 10*3/uL (1.80-7.70); Neutrophils % (A) 88.1 %; Platelet Count 307 X 10*3/uL (140-440); RBC 2.71 X 10*6/uL (4.10-5.20); RDW 14.2 % (11.5-14.5); WBC 13.12 X 10*3/uL (4.50-10.00)
--- NOTE | 2021-08-06 12:22 | XR ---
EXAMINATION TYPE: XR chest 1V portable DATE OF EXAM: 08/06/2021 HISTORY: Shortness of breath. COMPARISON: 08/05/2021 TECHNIQUE: Single view of the chest is submitted. FINDINGS: Demonstrated are scattered senescent parenchymal change. There Is persistent cardiomegaly with pulmonary venous congestion and bilateral pleural effusions. Th e findings are suspicious for congestive failure without significant interval improvement. Hilar and mediastinal structures are within normal limits. Degenerative changes are seen of the dorsal spine. IMPRESSION: 1. There Is persistent cardiomegaly with pulmonary venous congestion and bilateral pleural effusions . The findings are suspicious for congestive failure without significant interval improvement.
[2021-08-06] MEDS ORDERED: FUROSEMIDE 10 MG/ML 2 ML VIAL IV ONE (13:29)
--- NOTE | 2021-08-06 13:34 | P.PN ---
<Vanda Cifuentes - Last Filed: 08/06/21 13:25> Subjective Progress Note Date: 08/06/21 This is a 66-year-old female patient with known history of advanced COPD, oxygen dependent was currently admitted for some GI symptoms mainly in the form of epigastric pain and discomfort and nausea along with COVID 19 infection. The patient was diagnosed having COVID 19 on 07/27/2021 and at that time the patient was hospitalized for surgical intervention as the patient was found to have severe peripheral vascular disease, symptomatically claudication. The patient underwent PTCA/anoplasty by Dr. Medley from cardiology. At the same time, the patient was incidentally found to be positive for: COVID 19. The procedure was completed and the patient was discharged home. The patient denies having any worsening shortness of breath. She remains on O2 at 2 L. She has history of chronic atrial fibrillation. She came in with nausea, epigastric discomfort and loose stools. She is also getting weak and debilitated. Her has been also diagnosed having COVID 19 19 and currently is admitted for: Pneumonia and hypoxemia. For now, the patient is being investigated also for a GI bleed. She was taken off aspirin and Plavix. She is supposed to have an EGD tomorrow. Overall respiratory status is stable. Chest x-ray is not showing any acute worsening. Findings are essentially similar and the patient has emphysema. The patient is seen today 08/05/2021 in follow-up on the regular medical floor. She is currently sitting up in bed. Awake and alert in no acute distress. Chest x-ray reveals basilar effusions with some interstitial edema. There is also noted underlying emphysema. She is currently maintaining O2 saturations in the 90s on 2 L/m per nasal cannula. She's been afebrile. Hemodynamically stable. EGD was performed earlier this morning that revealed diffuse erosive gastritis involving the distal body and antrum of the stomach but no evidence of peptic ulcer disease. Erosion of the distal esophagus consistent with probably grade B reflux esophagitis. White count 5.6. Hemoglobin 7.4. Lymphocytes 0.39. Sodium 140. Potassium 4.4. Creatinine 0.3. Glucose 125. Stool for occult blood was negative. She is continued on Decadron, Symbicort, Spiriva, albuterol. The patient is seen today 08/06/2021 on follow-up on the regular medical floor. She is awake and alert in no acute distress. Continues with a loose productive cough. Continues with some shortness of breath on exertion. Follow-up chest x- ray reveals persistent cardiomegaly and pulmonary venous congestion and bilateral pleural effusions. Suspicious for congestive heart failure without significant interval improvement. White count 13.1. Hemoglobin 7.8. Platelets 307. The site 0.66. Sodium 147. Potassium 4.3. BUN 9.7. Creatinine 0.4. ProBNP 1790. She is continued on Symbicort, Spiriva, Ventolin, Decadron. Loven ox for DVT prophylaxis. Objective - Vital Signs Vital signs: Vital Signs Temp 97.6 F 08/06/21 10:00 Pulse 92 08/06/21 10:00 Resp 20 08/06/21 10:00 BP 132/69 08/06/21 10:00 Pulse Ox 91 L 08/06/21 10:00 Intake & Output 08/05/21 08/06/21 08/06/21 18:59 06:59 18:59 Intake Total 400 Balance 400 Intake: IV 400 Sodium Chloride 0.9% 1, 300 000 ml @ 75 mls/hr IV . [id number] [facility] Rx#:[id number] Other: Voiding Method Bedside Commode Bedside Commode Bedside Commode # Voids 2 2 - Exam GENERAL EXAM: Alert, frail, pleasant 65-year-old female patient, on 2 L nasal cannula, comfortable in no apparent distress. HEAD: Normocephalic. EYES: Normal reaction of pupils, equal size. NOSE: Clear with pink turbinates. THROAT: No erythema or exudates. NECK: No masses, no JVD. CHEST: No chest wall deformity. LUNGS: Equal air entry with bilateral end expiratory wheeze, diminished. CVS: S1 and S2 normal with no audible murmur, regular rhythm. ABDOMEN: No hepatosplenomegaly, normal bowel sounds, no guarding or rigidity. SPINE: No scoliosis or deformity SKIN: No rashes CENTRAL NERVOUS SYSTEM: No focal deficits, tone is normal in all 4 extremities. EXTREMITIES: There is no peripheral edema. No clubbing, no cyanosis. Peripheral pulses are intact. - Labs CBC & Chem 7: 08/06/21 07:05 08/06/21 07:05 Labs: Abnormal Lab Results - Last 24 Hours (Table) 08/06/21 08/06/21 Range/Units 07:05 07:05 WBC 13.12 H (4.50-10.00) X 10*3/uL RBC 2.71 L (4.10-5.20) X 10*6/uL Hgb 7.8 L (12.0-15.0) g/dL Hct 26.6 L (37.2-46.3) % MCV 98.2 H (80.0-97.0) fL MCHC 29.3 L (32.0-37.0) g/dL Immature Gran # 0.11 H (0.00-0.04) X 10*3/uL Neutrophils # 11.56 H (1.80-7.70) X 10*3/uL Lymphocytes # 0.66 L (0.90-5.00) X 10*3/uL Eosinophils # 0.01 L (0.04-0.35) X 10*3/uL Sodium 147 H (135-145) mmol/L Carbon Dioxide 32.3 H (20.0-27.5) mmol/L Anion Gap 8.00 L (10.00-18.00) mmol/L Creatinine 0.4 L (0.6-1.5) mg/dL BUN/Creatinine Ratio 27.57 H (12.00-20.00) Ratio Calcium 8.6 L (8.7-10.3) mg/dL Assessment and Plan Assessment: 1 advanced COPD with an FEV1 of 35% of predicted and the patient has chronic hypoxic respiratory failure admitted on oxygen 2 L per minute nasal cannula 2 acute COVID 19 infection diagnosed on 07/27/2021. The patient may be having some GI symptoms related to the COVID 19. No acute signs of pneumonia or S4 dec ompensation related to the infection 3 epigastric discomfort, nausea and possible/questionable GI bleed currently under investigation. EGD revealed diffuse gastritis involving the distal body and antrum of the stomach but no evidence of peptic ulcer disease. Erosions in the distal esophagus consistent with LAD grade B reflux esophagitis. 4 extreme debility secondary to above-mentioned comorbidities and the patient has a body mass index of 19 5 history of Sjogren's disease maintained on Plaquenil outpatient basis 6 hyperlipidemia 7 history of breast cancer 8 acute tachycardia 9 severe peripheral vascular disease with recent elective vascular intervention, stenting, due to symptomatic peripheral vascular disease and claudication. 10 previous history of left upper lobe pulmonary nodules being monitored 11 former smoker Plan: The patient was seen and evaluated Chest x-ray and labs reviewed Discontinue Decadron, switched to IV Solu-Medrol Add Mucinex Lasix 40 mg IVP 1 Continue Lovenox, vitamin supplements Continue bronchodilators Titrate down the FiO2 as tolerated Increase her activity as tolerated We'll continue to follow I have personally seen and examined the patient, performed the documentation and the assessment and plan as written. Number of minutes spent on the visit: 10. <Cecilia Munson - Last Filed: 08/06/21 14:43> Objective - Vital Signs Vital signs: Vital Signs Temp 97.6 F 08/06/21 10:00 Pulse 92 08/06/21 10:00 Resp 20 08/06/21 10:00 BP 132/69 08/06/21 10:00 Pulse Ox 91 L 08/06/21 10:00 Intake & Output 08/05/21 08/06/21 08/06/21 18:59 06:59 18:59 Intake Total 400 Balance 400 Intake: IV 400 Sodium Chloride 0.9% 1, 300 000 ml @ 75 mls/hr IV . [id number] [facility] Rx#:[id number] Other: Voiding Method Bedside Commode Bedside Commode Bedside Commode # Voids 2 2 - Labs CBC & Chem 7: 08/06/21 07:05 08/06/21 07:05 Labs: Abnormal Lab Results - Last 24 Hours (Table) 08/06/21 08/06/21 Range/Units 07:05 07:05 WBC 13.12 H (4.50-10.00) X 10*3/uL RBC 2.71 L (4.10-5.20) X 10*6/uL Hgb 7.8 L (12.0-15.0) g/dL Hct 26.6 L (37.2-46.3) % MCV 98.2 H (80.0-97.0) fL MCHC 29.3 L (32.0-37.0) g/dL Immature Gran # 0.11 H (0.00-0.04) X 10*3/uL Neutrophils # 11.56 H (1.80-7.70) X 10*3/uL Lymphocytes # 0.66 L (0.90-5.00) X 10*3/uL Eosinophils # 0.01 L (0.04-0.35) X 10*3/uL Sodium 147 H (135-145) mmol/L Carbon Dioxide 32.3 H (20.0-27.5) mmol/L Anion Gap 8.00 L (10.00-18.00) mmol/L Creatinine 0.4 L (0.6-1.5) mg/dL BUN/Creatinine Ratio 27.57 H (12.00-20.00) Ratio Calcium 8.6 L (8.7-10.3) mg/dL Assessment and Plan Assessment: I have personally seen and examined the patient and reviewed the documentation. I performed a joint evaluation with the nurse practitioner in this evaluation was done more than 20 minutes. I fully agree with the documentation above and the plan of care.
--- NOTE | 2021-08-06 16:15 | P.PN ---
Subjective Progress Note Date: 08/06/21 Patient is a 66-year-old female came in with complaints of epigastric abdominal burning sensation along with nausea. Patient is on aspirin and Plavix at home patient had a stent in the right femoral artery for peripheral vascular disease about a week ago. Patient was diagnosed with COVID-19 at that time as well. Patient denied any increased shortness of breath does have wheezing on exam does have advanced COPD history patient is on 2 L of oxygen presently doesn't smoke. Patient does have history of chronic A. fib presently in atrial fibrillation with rapid ventricular rate. Patient was also complaining of loose stools but never checked the color of the stools. Patient may be having GI bleed, there is concern for this because of her drop in hemoglobin from 12-9.2 compared to her last hospitalization admission. Patient's troponins are not elevated patient denied any chest pain at this time. Patient does have some wheezing on exam. Patient was complaining of generalized fatigue and weakness 08/04/2021 Patient evaluated resting in bed. Main complaint is diffuse abdominal pain over the periumbilical region, with epigastric burning sensation. Patient states no BM since she came in which was loose at that time. States she is passing some gas but not much, as well as nausea but no vomiting. Patient with bruising to her right groin and significant bruising to her right arm s/p bilateral femoral artery stent about 1 week with right groin and right radial access. Bounding pulse noted in the right groin which is hard to palpation however was slightly reducible with manual pressure held. Continue to monitor closely. Plan is for EGD in the morning with GI services and aspirin Plavix are currently on hold now. Covid positive since 07/27/21, on home oxygen at 2L NC with saturations 97% dose have some faint rales posterior bases, no wheezing noted. She states cough is more congested and prominent than yesterday. Blood pressure 103/68 she is afebrile, heart rate 107 in afib. Today hemoglobin is 8.1, d-dimer 1.55, sodium 141, potassium 3.7 which is improved with supplementation. calcium 7.8. Patient is being followed closely by multiple consultations including pulmonary, cardi ology and GI services. 08/05/2021 Patient evaluated today resting in bed, EGD this morning showed erosive gastritis as well as esophagitis. Patient will continue on IV protonix BID while inpatient and will add maalox as she is also on IV decadron. Overall she states she is feeling better, still with some mild epigastric discomfort, however denies burning today. She had a bowel movement this morning, soft, no blood reported. She is bloated and states she had a regular meal try and it was hard t o eat and felt like it was sticking, she wanted to stay on the liquid diet for one more day. Today lungs show faint expiratory wheezing posterior in upper and lower lobes as well as right anterior chest wall with expiratory wheezing. She still feels short of breath when ambulating, was able to get up into the restroom today. She has a congested cough with no sputum. There is also some mild pitting ankle edema, stopped IV fluids as she is tolerating oral liquids. Chest xray shows basilar effusions, correlated for interstitial and pulmonary edema, pneumonia not excluded, also with underlying emphysema. Labs today WBC 5.64, hgb 7.4, sodium 140, potassium 4.4, BUN 8.8, creat 0.3, glucose 125, calcium 8.2. Vitals today 98.0, heart rate 84, RR 19, blood pressure 126/74, 90% on 2L NC. 08/06/2021 Patient evaluated today sitting on the edge of the bed still with shortness of breath. Lung sounds today are worsening with congestion noted and coarse rhonchi throughout. Started on mucinex by pulmonary, also transitioned from iv decadron to iv solumedrol. BNP yesterday 1700, chest xray today reviewed and showing persistent cardiomegaly with pulmonary venous congestion and bilateral pleural effusion findings are suspicious for congestive failure. Patient was given a one-time dose of IV Lasix. White count 13.12, hemoglobin 7.8, sodium 147 today, potassium 4.3, BUN 9.7, creatinine 0.4. She is 93% on 2 L nasal cannula, afebrile, blood pressure 123/64, heart rate 82. States abdominal pain is improved today, denies any epigastric burning states the maalox helped and also back on the liquid diet which she states helped too. reporting BMs reported she is passing gas. Review of Systems Constitutional: Denied any fever, reports fatigue Cardio vascular: denied any chest pain, palpitations Gastrointestinal: Denies nausea, denies vomiting, abdominal pain resolved, no epigastric burning reported Pulmonary: Reports shortness of breath, worsening congested cough no sputum production Neurologic: denied any new focal deficits All inpatient medications were reviewed and appropriate changes in these medications as dictated in the interval history and assessment and plan. PHYSICAL EXAMINATION: GENERAL: The patient is alert and oriented x3, appears fatigued. Thin built cachectic female HEENT: Pupils are round and equally reacting to light. EOMI. No scleral icterus. No conjunctival pallor. Normocephalic, atraumatic. No pharyngeal erythema. No thyromegaly. CARDIOVASCULAR: S1 and S2 present. No murmurs, rubs, or gallops. PULMONARY: Coarse rhonchi throughout worse on left than right with congested cough noted. ABDOMEN: Soft, is mild tenderness in the epigastric and periumbical area nondistended, hypoactive bowel sounds. No palpable organomegaly. MUSCULOSKELETAL: No joint swelling or deformity. EXTREMITIES: No cyanosis, clubbing, Mild pedal edema NEUROLOGICAL: Gross neurological examination did not reveal any focal deficits. SKIN: No rashes. Assessment and plan -Anemia, normocytic, with erosive gastritis, esophagitis, ok to resume aspirin plavix per GI services, no signs of acute bleeding hemoglobin stable today -Severe peripheral vascular disease s/p elective femoral bypass on aspirin and plavix -COPD with mild acute exacerbation, continue symbicort and continue with inhalational treatments, on oral mucinex -Fluid overload, most recent EF low normal at 50-55%, probably some mild diastolic dysfunction, given a one time dose of IV lasix today -Leukocytosis, probably reactive as patient underwent EGD yesterday -Atrial tachycardia as reported by cardiology with no evidence for atrial fibrillation, patient not on anticoagulation and is not recommended by cardiology. History of atrial fibrillation per medical record. -Hypokalemia, improved post supplementation -COVID-19 pneumonia which was recently diagnosed about a week ago on 2L NC with pulse ox in the 's on IV decadron -Elevated D-Dimer which is consistent with covid infection -Elevated inflammatory markers which is consistent with covid infection -Gastoresophageal reflux disease continue on protonix, started maalox today -Hyperlipidemia -History of Sjogren's on plaquenil which is continued -History of breast cancer follows with Dr Ayers, on femara -Remote history of tobacco use, quit in 2016 -Generalized weakness secondary to chronic medical conditions DVT prophylaxis: Lovenox GI Prophylaxis: Protonix Full Code Plan IV lasix x1 today, Continue IV solumedrol, symbicort, updrafts Continue to monitor for acute bleeding Repeat labs in AM PT/OT ongoing evaluation Objective - Vital Signs Vital signs: Vital Signs Temp 97.6 F 08/06/21 10:00 Pulse 92 08/06/21 10:00 Resp 20 08/06/21 10:00 BP 132/69 08/06/21 10:00 Pulse Ox 91 L 08/06/21 10:00 Intake & Output 08/05/21 08/06/21 08/06/21 18:59 06:59 18:59 Intake Total 400 Balance 400 Intake: IV 400 Sodium Chloride 0.9% 1, 300 000 ml @ 75 mls/hr IV . [id number] [facility] Rx#:[id number] Other: Voiding Method Bedside Commode Bedside Commode Bedside Commode # Voids 2 2 - Labs CBC & Chem 7: 08/06/21 07:05 08/06/21 07:05 Labs: Abnormal Lab Results - Last 24 Hours (Table) 08/06/21 Range/Units 07:05 Sodium 147 H (135-145) mmol/L Carbon Dioxide 32.3 H (20.0-27.5) mmol/L Anion Gap 8.00 L (10.00-18.00) mmol/L Creatinine 0.4 L (0.6-1.5) mg/dL BUN/Creatinine Ratio 27.57 H (12.00-20.00) Ratio Calcium 8.6 L (8.7-10.3) mg/dL Assessment and Plan Time with Patient: Greater than 30
[2021-08-06] MEDS: methylPREDNISolone SOD SUCCI 40 MG/ML 1 ML VIAL IV SCH (16:30)
[2021-08-06] MEDS: ATORVASTATIN 80 MG TAB PO SCH (21:23)
[2021-08-07] MEDS: methylPREDNISolone SOD SUCCI 40 MG/ML 1 ML VIAL IV SCH ×2 (00:01→08:24)
[2021-08-07] MEDS: MAG HYDROX/AL HYDROX/SIMETH 30 ML CUP PO SCH ×3 (00:01→12:47)
[2021-08-07] MEDS: GABAPENTIN 300 MG CAP PO SCH (08:23)
[2021-08-07] MEDS: ENOXAPARIN 40 MG/0.4 ML SYRINGE SQ SCH (08:23)
[2021-08-07] MEDS: PANTOPRAZOLE 40 MG/10 ML VIAL IVP SCH (08:23)
[2021-08-07] MEDS: ASPIRIN 81 MG PO SCH (08:23)
[2021-08-07] MEDS: METOPROLOL TARTRATE 12.5 MG TAB PO SCH (08:23)
[2021-08-07] MEDS: CLOPIDOGREL 75 MG TAB PO SCH (08:23)
[2021-08-07] MEDS: guaiFENesin 600 MG TABLET.ER PO SCH (08:23)
[2021-08-07] MEDS: CHOLECALCIFEROL 25 MCG (1000 IU) TABLET PO SCH (08:23)
[2021-08-07] MEDS: DOCUSATE 100 MG CAP PO SCH (08:23)
[2021-08-07 08:42] LABS: Basophils # (A) 0.02 X 10*3/uL (0.00-0.10); Basophils % (A) 0.2 %; Eosinophils # (A) 0 X 10*3/uL (0.04-0.35); Eosinophils % (A) 0 %; HCT 26.4 % (37.2-46.3); HGB 7.8 g/dL (12.0-15.0); Lymphocytes # (A) 0.38 X 10*3/uL (0.90-5.00); Lymphocytes % (A) 3.8 %; MCH 28.9 pg (27.0-32.0); MCHC 29.5 g/dL (32.0-37.0); MCV 97.8 fL (80.0-97.0); Mean Platelet Volume 10.2 fL (9.5-12.2); Monocytes # (A) 0.22 X 10*3/uL (0.20-1.00); Monocytes % (A) 2.2 %; NRBC Per 100 WBC 0 /100 WBCS (0.0-0.0); Neutrophils # (A) 9.19 X 10*3/uL (1.80-7.70); Neutrophils % (A) 91.8 %; Platelet Count 351 X 10*3/uL (140-440); RDW 14.1 % (11.5-14.5); WBC 10.01 X 10*3/uL (4.50-10.00)
[2021-08-07 08:54] LABS: African American GFR (CKD) 135.8 (60.0-200.0); Anion Gap 8.5 mmol/L (10.00-18.00); BUN/Creat Ratio 29.13 Ratio (12.00-20.00); Calcium 8.9 mg/dL (8.7-10.3); Non-African American GFR(CKD) 117.2 (60.0-200.0); Potassium 4.6 mmol/L (3.5-5.5)
[2021-08-07] MEDS: TIOTROPIUM 2.5 MCG INHALER INHALATION SCH (09:13)
[2021-08-07] MEDS: ALBUTEROL HFA INHALER INHALATION SCH ×2 (09:13→10:48)
[2021-08-07] MEDS: SYMBICORT 160-4.5 MCG INHALER INHALATION SCH (09:13)
[2021-08-07] MEDS: HYDROXYCHLOROQUINE SULFATE 200 MG TAB PO SCH (09:33)
[2021-08-07] MEDS: LETROZOLE 2.5 MG TAB PO SCH (09:33)
[2021-08-07] MEDS: buPROPion SR 100 MG TABLET.ER PO SCH (09:33)
[2021-08-07 11:15] VITALS: BP 127/70; PULSE 75; RESP 16; TEMP 98
--- NOTE | 2021-08-07 13:21 | P.PN ---
Subjective Progress Note Date: 08/07/21 form of epigastric pain and discomfort and nausea along with COVID 19 infection. The patient was diagnosed having COVID 19 on 07/27/2021 and at that time the patient was hospitalized for surgical intervention as the patient was found to have severe peripheral vascular disease, symptomatically claudication. The patient underwent PTCA/anoplasty by Dr. Medley from cardiology. At the same time, the patient was incidentally found to be positive for: COVID 19. The procedure was completed and the patient was discharged home. The patient denies having any worsening shortness of breath. She remains on O2 at 2 L. She has history of chronic atrial fibrillation. She came in with nausea, epigastric discomfort and loose stools. She is also getting weak and debilitated. Her has been also diagnosed having COVID 19 19 and currently is admitted for: Pneumonia and hypoxemia. For now, the patient is being investigated also for a GI bleed. She was taken off aspirin and Plavix. She is supposed to have an EGD tomorrow. Overall respiratory status is stable. Chest x-ray is not showing any acute worsening. Findings are essentially similar and the patient has emphysema. The patient is seen today 08/05/2021 in follow-up on the regular medical floor. She is currently sitting up in bed. Awake and alert in no acute distress. Chest x-ray reveals basilar effusions with some interstitial edema. There is also noted underlying emphysema. She is currently maintaining O2 saturations in the 90s on 2 L/m per nasal cannula. She's been afebrile. Hemodynamically stable. EGD was performed earlier this morning that revealed diffuse erosive gastritis involving the distal body and antrum of the stomach but no evidence of peptic ulcer disease. Erosion of the distal esophagus consistent with probably grade B reflux esophagitis. White count 5.6. Hemoglobin 7.4. Lymphocytes 0.39. Sodium 140. Potassium 4.4. Creatinine 0.3. Glucose 125. Stool for occult blood was negative. She is continued on Decadron, Symbicort, Spiriva, albuterol. The patient is seen today 08/06/2021 on follow-up on the regular medical floor. She is awake and alert in no acute distress. Continues with a loose productive cough. Continues with some shortness of breath on exertion. Follow-up chest x- ray reveals persistent cardiomegaly and pulmonary venous congestion and bilateral pleural effusions. Suspicious for congestive heart failure without significant interval improvement. White count 13.1. Hemoglobin 7.8. Platelets 307. The site 0.66. Sodium 147. Potassium 4.3. BUN 9.7. Creatinine 0.4. ProBNP 1790. She is continued on Symbicort, Spiriva, Ventolin, Decadron. Lovenox for DVT prophylaxis. 08/07/2021, patient is feeling that the better compared to yesterday, less congested less bronchospastic as the patient was switched IV Solu Medrol yesterday. Nevertheless, she is unable to do her home nebulizers as the patient has positive COVID 19. She was doing a nebulizer at home with albuterol nebulized was 4 times a day which has helped her with pulmonary toileting and secretion clearing. She is also on examination of Symbicort and Spiriva at home. She is doing active in terms of her GI symptoms. No nausea or vomiting. No epigastric pain. No diarrhea. Her EGD results were noted. The patient is inclined ongoing home today. She has home O2. Her weakness and lethargy has improved. Objective - Vital Signs Vital signs: Vital Signs Temp 98.0 F 08/07/21 10:00 Pulse 75 08/07/21 10:00 Resp 16 08/07/21 10:00 BP 127/70 08/07/21 10:00 Pulse Ox 97 08/07/21 10:00 Intake & Output 08/06/21 08/07/21 08/07/21 18:59 06:59 18:59 Output Total 950 Balance -950 Output: Urine 950 Other: Voiding Method Bedside Commode Bedside Commode # Voids 2 - Exam GENERAL EXAM: Alert, frail, pleasant 65-year-old female patient, on 2 L nasal cannula, comfortable in no apparent distress. HEAD: Normocephalic. EYES: Normal reaction of pupils, equal size. NOSE: Clear with pink turbinates. THROAT: No erythema or exudates. NECK: No masses, no JVD. CHEST: No chest wall deformity. LUNGS: Equal air entry with bilateral end expiratory wheeze, diminished. CVS: S1 and S2 normal with no audible murmur, regular rhythm. ABDOMEN: No hepatosplenomegaly, normal bowel sounds, no guarding or rigidity. SPINE: No scoliosis or deformity SKIN: No rashes CENTRAL NERVOUS SYSTEM: No focal deficits, tone is normal in all 4 extremities. EXTREMITIES: There is no peripheral edema. No clubbing, no cyanosis. Peripheral pulses are intact. - Labs CBC & Chem 7: 08/07/21 06:14 08/07/21 06:14 Labs: Abnormal Lab Results - Last 24 Hours (Table) 08/07/21 08/07/21 Range/Units 06:14 06:14 WBC 10.01 H (4.50-10.00) X 10*3/uL RBC 2.70 L (4.10-5.20) X 10*6/uL Hgb 7.8 L (12.0-15.0) g/dL Hct 26.4 L (37.2-46.3) % MCV 97.8 H (80.0-97.0) fL MCHC 29.5 L (32.0-37.0) g/dL Immature Gran # 0.20 H (0.00-0.04) X 10*3/uL Neutrophils # 9.19 H (1.80-7.70) X 10*3/uL Lymphocytes # 0.38 L (0.90-5.00) X 10*3/uL Eosinophils # 0 L (0.04-0.35) X 10*3/uL Carbon Dioxide 34.0 H (20.0-27.5) mmol/L Anion Gap 8.50 L (10.00-18.00) mmol/L Creatinine 0.3 L (0.6-1.5) mg/dL BUN/Creatinine Ratio 29.13 H (12.00-20.00) Ratio Glucose 139 H (70-110) mg/dL Assessment and Plan Plan: 1 advanced COPD with an FEV1 of 35% of predicted and the patient has chronic hypoxic respiratory failure admitted on oxygen 2 L per minute nasal cannula, clinically stable 2 acute COVID 19 infection diagnosed on 07/27/2021. The patient may be having some GI symptoms related to the COVID 19. No acute signs of pneumonia or respiratory decompensation. In fact the patient is clinically stable. The patient was given IV Solu Medrol over the past 24 hours. 3 epigastric discomfort, nausea and possible/questionable GI bleed currently under investigation, EGD was completed and the patient has some erosive gastritis and esophagitis. 4 extreme debility secondary to above-mentioned comorbidities and the patient has a body mass index of 19 5 history of Sjogren's disease maintained on Plaquenil outpatient basis 6 hyperlipidemia 7 history of breast cancer 8 acute tachycardia 9 severe peripheral vascular disease with recent elective vascular intervention, stenting, due to symptomatic peripheral vascular disease and claudication. 10 previous history of left upper lobe pulmonary nodules being monitored 11 former smoker Plan Patient is quite debilitated. Clinically stable Stable respiratory status O2 somewhat between 2 and 3 L May be able to go home on a prednisone burst taper Resume Spiriva and Symbicort and albuterol nebulized she was [id number] at home GI symptoms improved Agree on discharge
--- NOTE | 2021-08-08 13:43 | P.DS ---
Providers Date of admission: 08/03/21 12:48 Attending physician: Jim Wiley Consults: 08/03/21 14:40 Consult Physician Routine Consulting Provider: Mckinley Stewart Consult Reason/Comments: A. Fib, GI bleed Do you want consulting provider notified?: Yes Consult Physician Routine Consulting Provider: Syeda Schwartz Consult Reason/Comments: GI bleed Do you want consulting provider notified?: Yes 08/04/21 10:04 Consult Physician Routine Consulting Provider: Doyle De La Cruz Consult Reason/Comments: COPD, COVID,clearance for upper endoscopy (08/05/21) Do you want consulting provider notified?: Yes Primary care physician: Jaxon Osullivan [facility] Course: Final Diagnosis -Anemia, normocytic, with erosive gastritis, esophagitis, ok to resume aspirin plavix per GI services, no signs of acute bleeding hemoglobin stable today -Severe peripheral vascular disease s/p elective femoral bypass on aspirin and plavix -COPD with mild acute exacerbation, continue symbicort and continue with inhalational treatments, on oral mucinex -Fluid overload, most recent EF low normal at 50-55%, probably some mild diastolic dysfunction, patient did receive lasix x1 dose -Leukocytosis, probably reactive as patient underwent EGD yesterday which is trending back down. -Atrial tachycardia as reported by cardiology with no evidence for atrial fibrillation, patient not on anticoagulation and is not recommended by cardiology. History of atrial fibrillation per medical record. -Hypokalemia, improved post supplementation -COVID-19 pneumonia which was recently diagnosed about a week ago on 2L NC with pulse ox in the 90's on IV decadron -Elevated D-Dimer which is consistent with covid infection -Elevated inflammatory markers which is consistent with covid infection -Gastoresophageal reflux disease continue on protonix, started maalox today -Hyperlipidemia -History of Sjogren's on plaquenil which is continued -History of breast cancer follows with Dr Ayers, on femara -Remote history of tobacco use, quit in 2016 -Generalized weakness secondary to chronic medical conditions Discharge Disposition Patient may be discharged home today. Has a nebulizer at home and all appropriate medications. On home dose of oxygen. Abdominal discomfort resolved. PT/OT evaluation, patient stable for discharge home with homecare. Hospital Course This is a pleasant 66-year-old female who came into the with complaints of epigastric abdominal burning sensation along with nausea. Patient is status post bilateral femoral artery bypass for peripheral vascular disease 1 week ago, she was discharged on aspirin and Plavix. Patient was also diagnosed with COVID-19 at that time. Patient underwent EGD on August 05 which showed erosive gastritis as well as esophagitis, she is to continue Protonix twice a day and gabby crowder was given Maalox as well as she was started on IV Decadron inpatient for respiratory symptoms. This was transitioned to IV solu-medrol. Patient was clear with GI services to resume aspirin and Plavix. Abdominal discomfort has resolved this admission. Patient was tolerating a full liquid diet and would like to continue until she feels more better. Patient did develop some faint expiratory wheezing with respiratory distress status post EGD. She also had some ankle edema, chest x-ray was completed which shows basilar effusions and she was given a dose of IV Lasix. She was started on Mucinex by pulmonary and she will continue on nebulized updrafts and home oxygen on discharge. Patient is a past medical history significant for atrial fibrillation which is a questionable history, she was evaluated by cardiology this admission which fell she was more like an atrial tachycardia rhythm and will not be any anticoagulation which she was on at home, history of breast cancer on Femara, COPD, gastroesophageal reflux, pneumonia, hyperlipidemia, osteoporosis, left upper lobe nodule which is being monitored outpatient, left breast lumpectomy, former smoker quit in 2016. Labs on admission show white count 4.3, hemoglobin 9.2, d-dimer 1.38, sodium 138, potassium 3.0, CO2 36, BUN 12, creatinine 0.32, calcium 8.0, magnesium 1.8, troponin negative, liver enzymes are normal, CRP elevated at 17.9, LDH elevated at 678, BNP 709, amylase lipase within normal limits, vitamin B12 1406, pro calcitonin 0.33. Urinalysis negative for infection, occult blood negative. Diagnostics include Initial chest x-ray shows underlying atelectasis and emphysema, difficult to exclude pneumonia EKG shows atrial fibrillation with rapid ventricular rate, reviewed and was felt to be more of an atrial tachycardia rhythm by cardiology Follow-up chest x-ray shows persistent cardiomegaly with pulmonary venous congestion and bilateral pleural effusions done on 08/06/2021, also repeat BNP was 1700 for which patient did receive IV lasix and symptoms improved 08/07/2021 Patient cleared by pulmonary for discharge today, will go on an oral steroid taper, symbicort and home nebulizers. Also patient will continue on mucinex. She will follow up in the office with primary care, pulmonary, and GI services. Patient today is requesting discharge states that she feels better and would like to go home and will be able to increase her activity as tolerated there. She is on her home dose of oxygen at 2 L nasal cannula with a saturation 97%, she is afebrile, heart rate 75, blood pressure 127/70. Labs today show white count 10.01 which is trending down, hemoglobin stable at 7.8, platelet count 351, sodium 144, potassium 4.6, even 9, creatinine 0.3, blood glucose in the 90s. She states her shortness of breath is much improved, she does have a congested cough which is improving with the Mucinex. Patient has been having bowel movements, no diarrhea no abdominal pain, no more epigastric burning, no abdominal tenderness. No dysuria, urgency or frequency. She denies any chest pressure chest pain or palpitations. There is no dizziness or lightheadedness. Lung sounds are improved today with increased aeration, no crackles noted, she does have some coarse rhonchi scattered however her cough is breaking up with the mucinex. Abdomen soft nontender, S1-S2 auscultated, focal neurological exam is negative. Patient will discharge on aspirin Plavix, Protonix twice a day as well as Maalox for GI prophylaxis. Please see medication reconciliation for list of current medication. Thank you for allowing us to participate in the care of this patient. Patient Condition at Discharge: Fair Plan - Discharge Summary Discharge Rx Participant: No New Discharge Prescriptions: New Mag Hydrox/Al Hydrox/Simeth [Maalox] 30 ml PO QID 7 Days #840 ml guaiFENesin [Mucinex] 600 mg PO Q12HR #0 tablet Budesonide-Formot 160-4.5 Mcg [Symbicort 160-4.5 Mcg Inhaler] 2 puff INHALATION RT-BID #1 each Metoprolol Tartrate [Lopressor] 12.5 mg PO BID 30 Days #60 tab predniSONE 0 mg PO DIRECTED #10 tab Continue Hydroxychloroquine Sulfate [Plaquenil] 200 mg PO BID Fluticasone/Salmeterol [Advair 500-50 Diskus] 1 puff INHALATION RT-BID Gabapentin [Neurontin] 300 mg PO BID Levalbuterol Hfa Inhaler [Xopenex Hfa Inhaler] 1 puff INHALATION RT-Q6H PRN PRN Reason: Shortness Of Breath Calcium Carbonate [Calcium] 1,200 mg PO DAILY Letrozole [Femara] 2.5 mg PO DAILY Aspirin [[place]ham Aspirin EC] 81 mg PO DAILY Atorvastatin [Lipitor] 80 mg PO HS #90 tab Tiotropium 2.5 Mcg/Puff [Spiriva Respimat 2.5 Mcg] 2 puff INHALATION RT-DAILY Cholecalciferol [Vitamin D3 (25 Mcg = 1000 Iu)] 50 mcg PO DAILY Albuterol Nebulized [Ventolin Nebulized] 2.5 mg INHALATION RT-QID PRN PRN Reason: Shortness Of Breath Docusate [Colace] 100 mg PO DAILY buPROPion HCL [Wellbutrin SR] 100 mg PO BID Clopidogrel [Plavix] 75 mg PO DAILY #90 tab ALPRAZolam [Xanax] 0.25 mg PO BID PRN PRN Reason: Anxiety Changed Pantoprazole Sodium [Protonix] 40 mg PO BID #60 tab Discharge Medication List Hydroxychloroquine Sulfate [Plaquenil] 200 mg PO BID 03/29/15 [History] Fluticasone/Salmeterol [Advair 500-50 Diskus] 1 puff INHALATION RT-BID 05/31/16 [History] Gabapentin [Neurontin] 300 mg PO BID 04/07/19 [History] Levalbuterol Hfa Inhaler [Xopenex Hfa Inhaler] 1 puff INHALATION RT-Q6H PRN 04/07/19 [History] Calcium Carbonate [Calcium] 1,200 mg PO DAILY 04/29/19 [History] Letrozole [Femara] 2.5 mg PO DAILY 10/23/19 [History] Albuterol Nebulized [Ventolin Nebulized] 2.5 mg INHALATION RT-QID PRN 11/04/20 [History] Docusate [Colace] 100 mg PO DAILY 01/09/21 [History] buPROPion HCL [Wellbutrin SR] 100 mg PO BID 01/09/21 [History] Aspirin [Dillingham Aspirin EC] 81 mg PO DAILY 07/27/21 [History] Atorvastatin [Lipitor] 80 mg PO HS #90 tab 07/29/21 [Rx] Clopidogrel [Plavix] 75 mg PO DAILY #90 tab 07/29/21 [Rx] ALPRAZolam [Xanax] 0.25 mg PO BID PRN 08/03/21 [History] Cholecalciferol [Vitamin D3 (25 Mcg = 1000 Iu)] 50 mcg PO DAILY 08/03/21 [History] Tiotropium 2.5 Mcg/Puff [Spiriva Respimat 2.5 Mcg] 2 puff INHALATION RT-DAILY 08/03/21 [History] Metoprolol Tartrate [Lopressor] 12.5 mg PO BID 30 Days #60 tab 08/05/21 [Rx] Budesonide-Formot 160-4.5 Mcg [Symbicort 160-4.5 Mcg Inhaler] 2 puff INHALATION RT-BID #1 each 08/07/21 [Rx] Mag Hydrox/Al Hydrox/Simeth [Maalox] 30 ml PO QID 7 Days #840 ml 08/07/21 [Rx] Pantoprazole Sodium [Protonix] 40 mg PO BID #60 tab 08/07/21 [Rx] guaiFENesin [Mucinex] 600 mg PO Q12HR #0 tablet 08/07/21 [Rx] predniSONE 0 mg PO DIRECTED #10 tab 08/07/21 [Rx] Follow up Appointment(s)/Referral(s): Lionel Evans,Home Care [NON-STAFF] - As Needed Mckinley Stewart MD [STAFF PHYSICIAN] - 08/15/21 3:45 pm ([address], [address], [place] [address] Office building that is in front of [facility] ) Jaxon Osullivan DO [Primary Care Provider] - 1-2 days Cecilia Munson MD [STAFF PHYSICIAN] - 2 Weeks Syeda Schwartz MD [STAFF PHYSICIAN] - As Needed Ambulatory/Diagnostic Orders: Basic Metabolic Panel [LAB.AMB] Time Frame: 2 Days, Location: None Selected Complete Blood Count w/diff [LAB.AMB] Time Frame: 2 Days, Location: None Selected Patient Instructions/Handouts: Coronavirus Disease 2019 (COVID-19) Activity/Diet/Wound Care/Special Instructions: Patient wears oxygen at home and has all supplies, She is currently on her home dose of 2-3L of oxygen Patient states she has a nebulizer at home and has all supplies as well. Discharge Disposition: HOME WITH HOME HEALTH SERVICES
== END 2021-08-07 14:41 | disposition home health service (06) | DRG 391 ==
LOC: EC 09:26 → 4SSUR 12:48
PROVIDERS: ADMIT Internal Medicine; ATTEND Internal Medicine
PROC: 0DB78ZX Excision of Stomach, Pylorus, Via Natural or Artificial Opening Endoscopic, Diagnostic (ICD-10-PCS; principal; 2021-08-05 08:05)
DX: K29.60 Other gastritis without bleeding (principal); U07.1 COVID-19; I47.1 Supraventricular tachycardia; K22.10 Ulcer of esophagus without bleeding; I48.20 Chronic atrial fibrillation, unspecified; J90 Pleural effusion, not elsewhere classified; J96.11 Chronic respiratory failure with hypoxia; J98.11 Atelectasis; Z68.1 Body mass index [BMI] 19.9 or less, adult; I31.3 Pericardial effusion (noninflammatory); K21.00 Gastro-esophageal reflux disease with esophagitis, without bleeding; M35.00 Sjogren syndrome, unspecified; M81.0 Age-related osteoporosis without current pathological fracture; J43.9 Emphysema, unspecified; S40.021A Contusion of right upper arm, initial encounter; D64.9 Anemia, unspecified; D72.829 Elevated white blood cell count, unspecified; E78.5 Hyperlipidemia, unspecified; E86.1 Hypovolemia; I08.1 Rheumatic disorders of both mitral and tricuspid valves; E87.6 Hypokalemia; E87.70 Fluid overload, unspecified; I45.10 Unspecified right bundle-branch block; I73.9 Peripheral vascular disease, unspecified; Z86.16 Personal history of COVID-19; Z79.02 Long term (current) use of antithrombotics/antiplatelets; Z79.811 Long term (current) use of aromatase inhibitors; Z79.82 Long term (current) use of aspirin; Z79.899 Other long term (current) drug therapy; Z80.1 Family history of malignant neoplasm of trachea, bronchus and lung; Z80.3 Family history of malignant neoplasm of breast; Z85.3 Personal history of malignant neoplasm of breast; Z87.01 Personal history of pneumonia (recurrent); Z87.891 Personal history of nicotine dependence; Z90.710 Acquired absence of both cervix and uterus; Z95.820 Peripheral vascular angioplasty status with implants and grafts; Z99.81 Dependence on supplemental oxygen; Z90.49 Acquired absence of other specified parts of digestive tract; Z88.0 Allergy status to penicillin; Z91.041 Radiographic dye allergy status; Z91.018 Allergy to other foods; Z88.5 Allergy status to narcotic agent; Z88.1 Allergy status to other antibiotic agents
CPT/HCPCS: 36415; 43239; 71045; 71046; 80048; 80053; 81001; 82150; 82272; 82607; 82728; 83540; 83550; 83605; 83615; 83690; 83735; 83880; 84145; 84484; 85025; 85379; 85610; 85730; 86140; 88305; 93005; 94640; 94760; 96361; 96365; 96366; 99285

== ENCOUNTER → 2021-08-26 | Outpatient (CLI) | payer MEDICARE, BC ==
--- NOTE | 2021-08-26 15:38 | US ---
EXAMINATION TYPE: US venous doppler duplex LE LT DATE OF EXAM: 08/26/2021 3:19 PM COMPARISON: Prior bilateral SEPTEMBER 12, 2010. CLINICAL HISTORY: R60.0 Edema lower leg. Edema and pain within left leg. SIDE PERFORMED: Left TECHNIQUE: The lower extremity deep venous system is examined utilizing real time linear array sonog bettie with graded compression, doppler sonography and color-flow sonography. VESSELS IMAGED: Common Femoral Vein Deep Femoral Vein Greater Saphenous Vein * Femoral Vein Popliteal Vein Small Saphenous Vein * Proximal Calf Veins (* superficial vessels) Left Leg: No evidence of DVT in veins imaged at this time. IMPRESSION: No acute DVT identified in the left lower extremity.
== END | disposition home or self-care (01) ==
LOC: RADUSWWP 14:59
PROVIDERS: ATTEND Family Medicine
DX: R60.0 Localized edema (principal)

== ENCOUNTER → 2021-09-13 | Outpatient (CLI) | payer MEDICARE, BC ==
--- NOTE | 2021-09-13 21:09 | CT ---
EXAMINATION TYPE: CT chest wo con DATE OF EXAM: 09/13/2021 INDICATION: High Resolution, GILLES, COPD CT DLP: 208.9 mGy.cm Automated Exposure Control for Dose Reduction was Utilized. TECHNIQUE AND CONTRAST: Axial CT scan of the chest in the prone and supine positions as per high-resolution protocol without IV contrast administration. COMPARISON: CT dated 12/31/2020 FINDINGS: COPD changes, mainly involving the upper lobes and more on the right side with predominant centrilobu lar emphysematous changes, appreciated previously. Fibrotic changes are seen in the lung apex more on the left side with loss of volume of the left upper lobe. Thick consolidation is seen in the lingula, not appreciated previously, with another irregular periph eral elongated consolidation seen at the posterior aspect of the right lung base, also not appreciate d previously. Minimal infiltration is seen in the left lung base and the lateral aspect of the right upper lobe. No gross groundglass opacities, peripheral reticulations or honeycombing. Patent trachea and main bro nchi. No pleural or pericardial effusion. No gross cardiomegaly. Scattered arterial atherosclerotic c alcifications. The pulmonary trunk measures 2.7 cm. No pathologically enlarged lymph nodes by this CT scan. Previous cholecystectomy. Bilateral breast calcifications, please correlate with breast ultrasound/mammograph y results. Osteopenia. IMPRESSION: Advanced COPD changes as described above. Newly seen multiple areas of pulmonary consolidation most e vident in the lingula and the posterior aspect of the right lung base, not appreciated previously. Th is could be related to acute inflammatory/infectious process, please correlate clinically. Follow-up to complete resolution in 6-8 weeks is advised to rule out underlying neoplastic process. Organizing pneumonia is another possibility. Other findings as detailed above.
== END | disposition home or self-care (01) ==
LOC: RADCTMAIN 15:35
PROVIDERS: ATTEND Internal Medicine Critical Care Medicine
DX: J44.9 Chronic obstructive pulmonary disease, unspecified (principal)
CPT/HCPCS: 71250

== ENCOUNTER → 2021-11-15 | Outpatient (CLI) | payer MEDICARE, BC ==
--- NOTE | 2021-11-17 15:19 | US ---
EXAMINATION TYPE: US arterial LE multi level DATE OF EXAM: 11/15/2021 2:37 PM CLINICAL HISTORY: I70.219 [place] ARTERIES OF EXTRM W INTRMT ZINA. hx breast cancer left side. Hx s tents bilaterally per patient at [facility]. Left leg pain. History of coronary artery disease. History o f breast cancer. Doppler Waveforms: Right: Monophasic Left: Monophasic Pulse Volume Recording: Diminished bilaterally Pressure Gradients: Ankle-Brachial Indices: Right: 1.0 Left: 0.8 Toe Brachial Indices: Right: 0.46 Left: 0.7 IMPRESSION: Loss of phasicity bilaterally is abnormal. Diminished right sided TBI consistent with at least moderate recurrent peripheral arterial disease. Follow-up and further workup advised.
== END | disposition home or self-care (01) ==
LOC: RADUSWWP 13:48
PROVIDERS: ATTEND Internal Medicine Cardiovascular Disease
DX: I73.9 Peripheral vascular disease, unspecified (principal); Z85.3 Personal history of malignant neoplasm of breast
CPT/HCPCS: 93923

== ENCOUNTER → 2021-11-30 | Outpatient (CLI) | payer MEDICARE, BC ==
[2021-12-02 07:56] LABS: African American GFR (CKD) >90 (>60 ml/min/1.73 sqM); Blood Urea Nitrogen 18 mg/dL (7-17); Non-African American GFR(CKD) >90 (>60 ml/min/1.73 sqM)
== END | disposition home or self-care (01) ==
LOC: RADCTMAIN 14:07
PROVIDERS: ATTEND Internal Medicine Interventional Cardiology
DX: Z53.9 Procedure and treatment not carried out, unspecified reason (principal)

== ENCOUNTER → 2021-11-30 | Outpatient (CLI) | payer MEDICARE, BC ==
[~2021-11-30] MED LIST changes: +DENOSUMAB 60 MG/ML 1 ML SYRINGE SQ NR; -DENOSUMAB 60 MG/ML 1 ML SYRINGE SQ ONE
[2021-11-30 14:15] VITALS: BP 116/70; PULSE 85; RESP 16; TEMP 97.7
== END ==
LOC: PROCWHC3 13:35
PROVIDERS: ATTEND Family Medicine
DX: M81.0 Age-related osteoporosis without current pathological fracture (principal); Z91.018 Allergy to other foods; Z88.5 Allergy status to narcotic agent; Z88.1 Allergy status to other antibiotic agents; Z88.0 Allergy status to penicillin; Z91.041 Radiographic dye allergy status; Z88.8 Allergy status to other drugs, medicaments and biological substances; Z88.6 Allergy status to analgesic agent; Z87.891 Personal history of nicotine dependence
CPT/HCPCS: 96372; J0897

== ENCOUNTER → 2021-12-02 | Outpatient (CLI) | payer MEDICARE, BC ==
--- NOTE | 2021-12-02 15:33 | CT ---
EXAMINATION TYPE: CT angio abd aorta w/Runoff DATE OF EXAM: 12/02/2021 COMPARISON: 07/24/2011 HISTORY: 66-year-old female abdominal pain, left leg pain, history of left breast cancer. Peripheral vascular disease. Femoral stent placed 08/24/2021. TECHNIQUE: Contiguous axial scanning of the abdomen and pelvis performed without and with IV Contrast , patient injected with 125 mL of Isovue 370. Postcontrast bilateral lower extremity runoff. Coronal/ sagittal reconstructions performed. 3-D reconstructions generated on a dedicated workstation. CT DLP: 1029.4 mGycm Automated exposure control for dose reduction was used. FINDINGS: Heart upper limits of normal in size. Emphysematous change in the visualized lower lungs. Suspect a small hiatal hernia. Arterial imaging of the liver, right adrenal gland, left kidney, spleen, and pancreas show no gross a bnormal body. There is a 3.4 cm diverticulum of the second portion of the duodenum projecting into the pancreatic h ead region. Extrarenal pelvis right kidney. Mild thickening of the left adrenal gland without discrete nodularity . Cholecystectomy clips. 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 No dilated small bowel, free fluid, or free air. Paucity of intra-abdominal fat limits assessment for lymphadenopathy. No gross lymphadenopathy seen. There is moderate stool in the right side of the colon and also within the redundant transverse colon . Bladder urine distended. Uterus surgically absent. No abnormal fluid collection the pelvis or pelvic lymphadenopathy. Vasculature: Moderate atherosclerotic calcifications throughout the abdominal aorta and iliac arteries. Mild atherosclerotic narrowing at the origin of the celiac axis. Possible more moderate to severe stenosis origin of the left renal artery. Mild at the origin of the right renal artery. SMA is patent. GRAHAM not clearly visualized. Bilateral patent iliac artery stents. There is some patent, opacified lumen seen anteriorly along the proximal to mid right common iliac artery, refer to thin cut axial image 84. Right: The right iliac artery stent ends at the junction with the common femoral artery where there is mild narrowing present. There is moderate diffuse stenosis of the SFA with some segments of more areas of more severe focal stenosis near the adductor hiatus. Right popliteal artery is patent. There is aberrant high takeoff of the anterior tibial artery that takes a course deep to the popliteu s. Moderate atherosclerotic narrowing tibioperoneal trunk. Both posterior tibial and peroneal arteries are diminutive. Peroneal artery is seen to the distal leg . The posterior tibial artery is faintly seen into the midfoot. Runoff via the anterior tibial artery. Left: Patent left iliac artery stents. Mild atherosclerotic narrowing, femoral artery. Occlusion of the SFA. Profunda femoral artery is patent. This allows for reconstitution of the poplit eal artery just beyond the adductor hiatus. As on the contralateral side, there is aberrant high takeoff of the anterior tibial artery to course deep to the popliteus muscle. Moderate atherosclerotic narrowing throughout the proximal anterior tibial artery. Enhancement is los s at the mid leg level. Moderate atherosclerotic narrowing tibioperoneal trunk. Diminutive peroneal and posterior tibial arteries. Peroneal artery seen to the above the ankle. Runoff via the posterior tibial artery. Bones: Suspect old healed left sacral alar fracture. Endplate deformities of L3 appear chronic. IMPRESSION: 1. MODERATE ATHEROSCLEROTIC CHANGES THROUGHOUT. Possible moderate to severe stenosis origin of the le ft renal artery. GRAHAM not clearly seen. 2. Patent right lateral iliac artery stents though with mild to moderate narrowing at their anastomos es at the [employer] on either side. Right: 3. Moderate diffuse stenosis of the SFA with some segments of more severe focal stenosis near the add uctor hiatus. 4. Aberrant high takeoff of the anterior tibial artery. Moderate stenosis tibial peroneal trunk. Dimi nutive posterior tibial peroneal arteries. Posterior tibial artery faintly seen at the midfoot. Runof f via the anterior tibial artery. Left: 5. SFA occlusion. Patent PFA. This allows for reconstitution of the popliteal artery just beyond the adductor hiatus. 6. Aberrant high takeoff of the anterior tibial artery. Moderate stenosis proximal to tibial artery a nd loss of enhancement at the mid leg level. Moderate stenosis tibial peroneal trunk. 7. Diminutive peroneal and posterior tibial arteries. Runoff via the posterior tibial artery. Incidental: 8. 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
== END | disposition home or self-care (01) ==
LOC: RADCTMAIN 07:57
PROVIDERS: ATTEND Family Medicine
DX: R10.9 Unspecified abdominal pain (principal)
CPT/HCPCS: 75635; 36415; Q9967

== ENCOUNTER → 2021-12-15 | Outpatient (CLI) | payer MEDICARE, BC ==
[2021-12-15 15:47] LABS: African American GFR (CKD) >90 (>60 ml/min/1.73 sqM); Blood Urea Nitrogen 17 mg/dL (7-17); Non-African American GFR(CKD) >90 (>60 ml/min/1.73 sqM)
--- NOTE | 2021-12-15 16:44 | CT ---
EXAMINATION TYPE: CT chest w con DATE OF EXAM: 12/15/2021 COMPARISON: Most recent prior CT September 13, 2021 and older CTs HISTORY: Abnormal lung sewell. Hx breast ca. Pt premedicated CT DLP: 110.8 mGycm. Automated Exposure Control for Dose Reduction was Utilized. TECHNIQUE: CT scan of the thorax is performed following with IV Contrast, patient injected with 70 m L of Isovue 300. FINDINGS: LUNGS: Moderate to advanced underlying emphysematous changes redemonstrated. Stable chronic consolida tion or focal atelectasis in the lingula having elongated slightly thickened shape. No residual conso lidation or atelectasis in the right middle lobe. No pleural effusion or pneumothorax seen bilaterall y. There is central round 5 mm ring hyperdensity in the bronchus extending towards this level seen be st axial image 30 MEDIASTINUM: There are no greater than 1 cm hilar or mediastinal lymph nodes. No pericardial effusi on is seen. Heart size stable and upper limits of normal. OTHER: Posttreatment changes to the left breast are redemonstrated. Cholecystectomy clips are noted. Mild chronic compression type fracture deformities at the peak of thoracic curvature centered at T9 l evel redemonstrated. IMPRESSION: Moderate to advanced emphysematous change with chronic consolidation or focal atelectasis in the lingula. Possible endobronchial foreign body near this location. Consider bronchoscopy follow -up to further evaluate.
== END | disposition home or self-care (01) ==
LOC: RADCTMAIN 15:08
PROVIDERS: ATTEND Internal Medicine Critical Care Medicine
DX: J43.9 Emphysema, unspecified (principal); R91.8 Other nonspecific abnormal finding of lung field
CPT/HCPCS: 82565; 84520; 71260; 36415; Q9967

== ENCOUNTER 2022-01-03 09:17 | Inpatient (IN) | payer MEDICARE, BC ==
[~2022-01-03 09:17] MED LIST changes: -DENOSUMAB 60 MG/ML 1 ML SYRINGE SQ NR; +SODIUM CHLORIDE 0.9% 1,000 ML in EMPTY BAG 1 BAG IV ONE
[2022-01-03] MEDS ORDERED: CLOPIDOGREL 75 MG TAB PO STA (09:31)
[2022-01-03] MEDS ORDERED: METOPROLOL TARTRATE 12.5 MG TAB PO STA (09:33)
[2022-01-03] MEDS ORDERED: ASPIRIN 325 MG TAB ONE (09:47)
[2022-01-03 09:50] LABS: Anisocytosis Slight; Basophils % (A) 0 %; Eosinophils # (A) 0.1 k/uL (0-0.7); Eosinophils % (A) 1 %; HCT 40.2 % (34.0-46.0); HGB 12.3 gm/dL (11.4-16.0); Hypochromasia Moderate; Lymphocytes # (A) 0.8 k/uL (1.0-4.8); Lymphocytes % (A) 8 %; MCH 27.7 pg (25.0-35.0); MCHC 30.5 g/dL (31.0-37.0); MCV 90.6 fL (80.0-100.0); Mean Platelet Volume 7.4; Monocytes # (A) 0.2 k/uL (0-1.0); Monocytes % (A) 2 %; Neutrophils # (A) 8.4 k/uL (1.3-7.7); Neutrophils % (A) 88 %; Platelet Count 248 k/uL (150-450); RBC 4.44 m/uL (3.80-5.40); RDW 16.1 % (11.5-15.5); WBC 9.5 k/uL (3.8-10.6)
[2022-01-03] MEDS ORDERED: SODIUM CHLORIDE 0.9% 500 ML 500 ML with niCARdipine 6.25 MG, NITROGLYCERIN-D5W PMX 0.05... IV ONE ×12 (10:06→13:55)
[2022-01-03] MEDS: HYDROXYCHLOROQUINE SULFATE 200 MG TAB PO SCH (10:07)
[2022-01-03 10:13] LABS: African American GFR (CKD) >90 (>60 ml/min/1.73 sqM); Anion Gap 9 mmol/L; Blood Urea Nitrogen 14 mg/dL (7-17); Calcium 8.5 mg/dL (8.4-10.2); Carbon Dioxide 26 mmol/L (22-30); Chloride 103 mmol/L (98-107); Glucose 114 mg/dL (74-99); Non-African American GFR(CKD) >90 (>60 ml/min/1.73 sqM); Potassium 3.8 mmol/L (3.5-5.1); Sodium 138 mmol/L (137-145)
[2022-01-03] MEDS ORDERED: MIDAZOLAM 2 MG/2 ML VIAL IV STA (10:16)
[2022-01-03] MEDS ORDERED: MIDAZOLAM 1 MG/ML 5 ML VIAL IV STA (10:16)
[2022-01-03] MEDS ORDERED: GLYCOPYRROLATE 0.2 MG/ML 2 ML VIAL ONE (10:23)
[2022-01-03] MEDS ORDERED: ONDANSETRON 4 MG/2 ML VIAL ONE (10:23)
[2022-01-03] MEDS ORDERED: MIDAZOLAM 2 MG/2 ML VIAL ONE (10:23)
[2022-01-03] MEDS ORDERED: fentaNYL (PF) 50 MCG/ML 2 ML AMP ONE (10:23)
[2022-01-03] MEDS ORDERED: HEPARIN SODIUM,PORCINE 10,000 UNIT/ML 1 ML VIAL ONE (10:23)
[2022-01-03] MEDS ORDERED: PROPOFOL 10 MG/ML 20 ML VIAL IV ONE (10:23)
[2022-01-03] MEDS ORDERED: KETAMINE 10 MG/ML 20 ML VIAL ONE (10:23)
[2022-01-03] MEDS ORDERED: PHENYLEPHRINE-0.9% NACL SYG 1,000 MCG/10 ML SYRINGE ONE (10:23)
[2022-01-03] MEDS ORDERED: LIDOCAINE 1% INJ 10MG/ML (30 ML VIAL-PF) SQ ONE (10:58)
[2022-01-03] MEDS ORDERED: HEPARIN SODIUM 1,000 UN/ML (10ML VL) IV ONE (11:10)
[2022-01-03] MEDS ORDERED: niCARdipine 25 MG/10 ML VIAL ONE (14:22)
[2022-01-03] MEDS ORDERED: NITROGLYCERIN 1000MCG/10ML SYRINGE INTRAARTER ONE (14:23)
[2022-01-03] MEDS ORDERED: niCARdipine Syringe (1,000 mcg/10 mL) INTRAARTER ONE (14:23)
[2022-01-03] MEDS ORDERED: NALOXONE 0.4 MG/ML 1 ML VIAL IVP PRN (14:39)
[2022-01-03] MEDS ORDERED: NON FORMULARY DRUG (Levalbuterol Hfa Inhaler 200 PUFF/9 GM Inhaler) INHALATION PRN (14:41)
[2022-01-03] MEDS ORDERED: ALBUTEROL NEBULIZED 2.5 MG/3 ML INHALATION PRN (14:41)
[2022-01-03] MEDS ORDERED: SODIUM CHLORIDE 0.9% 1,000 ML in EMPTY BAG 1 BAG IV SCH (14:45)
[2022-01-03] MEDS ORDERED: IOPAMIDOL-250 100ML BTL INTRAARTER ONE (14:50)
[2022-01-03] MEDS ORDERED: CLOPIDOGREL 75 MG TAB PO ONE (15:00)
[2022-01-03] MEDS ORDERED: CLOPIDOGREL 75 MG TAB ONE (15:00)
--- NOTE | 2022-01-03 15:28 | IR ---
Fluoroscopy HISTORY: Pain in left leg 116 minutes fluoroscopy time supplied to the referring clinician. 241 intraoperative C-arm images do cument the procedure. See dictated report from cardiology.
[2022-01-03] MEDS ORDERED: SODIUM CHLORIDE 0.9% 1,000 ML IV ONE ×2 (16:20→21:07)
[2022-01-03] MEDS ORDERED: SODIUM CHLORIDE 0.9% 500 ML 500 ML IV ONE (17:29)
[2022-01-03] MEDS: fentaNYL (PF) 50 MCG/ML 2 ML AMP IVP PRN (17:45)
[2022-01-03 17:50] LABS: Glucose,Whole Blood 139 mg/dL (70-110)
[2022-01-03 18:01] LABS: Anisocytosis Slight; Basophils % (A) 0 %; Eosinophils % (A) 0 %; Hypochromasia Marked; Lymphocytes # (A) 0.9 k/uL (1.0-4.8); Lymphocytes % (A) 7 %; MCH 27.2 pg (25.0-35.0); MCHC 29.5 g/dL (31.0-37.0); MCV 92.2 fL (80.0-100.0); Mean Platelet Volume 7.5; Monocytes # (A) 0.9 k/uL (0-1.0); Monocytes % (A) 7 %; Neutrophils # (A) 11.5 k/uL (1.3-7.7); Neutrophils % (A) 86 %; Platelet Count 184 k/uL (150-450); RDW 16.3 % (11.5-15.5); WBC 13.4 k/uL (3.8-10.6)
[2022-01-03 18:04] LABS: HGB 6.8 gm/dL (11.4-16.0)
[2022-01-03 18:07] LABS: African American GFR (CKD) >90 (>60 ml/min/1.73 sqM); Anion Gap 1 mmol/L; Blood Urea Nitrogen 16 mg/dL (7-17); Carbon Dioxide 25 mmol/L (22-30); Chloride 113 mmol/L (98-107); Glucose 122 mg/dL (74-99); Non-African American GFR(CKD) >90 (>60 ml/min/1.73 sqM); Potassium 4.1 mmol/L (3.5-5.1); Sodium 139 mmol/L (137-145)
[2022-01-03 18:11] LABS: Calcium 6.2 mg/dL (8.4-10.2)
--- NOTE | 2022-01-03 18:41 | CT ---
EXAMINATION TYPE: CT angio thor/abd pel aorta DATE OF EXAM: 01/03/2022 COMPARISON: None HISTORY: leg pain post heart cath CT DLP: 793.2 mGycm Automated exposure control for dose reduction was used. CONTRAST: Performed without and with IV Contrast, patient injected with 100 mL of Isovue 370. Images obtained from the thoracic inlet to the proximal femurs without and with the IV contrast. Ther e are Three-D postprocessed images. There is bilateral posterior pulmonary infiltrates and pleural effusions. Heart is top normal in size . No pericardial effusion. There is coarse infiltrate in the posterior segment left upper lobe adjace nt to the major fissure. There is no mediastinal adenopathy. Thoracic aorta is atheromatous. Ascendin g aorta measures 3.3 cm. No aneurysm. There are no hilar masses. No evidence of filling defect in the pulmonary arteries. No evidence of pulmonary embolism. Liver spleen and stomach pancreas appear intact. The bile ducts are not dilated. There is no adrenal mass. Kidneys show normal size and contour. There is normal contrast-enhancement of the kidneys. No h ydronephrosis. No retroperitoneal adenopathy. Ureters are not dilated. Abdominal aorta is atheromatous. There is arterial flow in the celiac artery and superior mesenteric artery. No significant stenosis. There is arterial flow in both renal arteries. There is arterial roxanne w in the iliac and femoral arteries. There is variable plaque formation. No evidence of hemodynamic s tenosis. There is arterial flow in the profunda femoris artery and the superficial femoral artery. Th ere is limited evaluation of the proximal superficial femoral artery. There is soft tissue air bubbles adjacent to the proximal femoral artery consistent with recent daylin terization. There is a 6 cm rounded mass in the subcutaneous tissues of the anterior left upper thigh consistent with hematoma. No evidence of contrast extravasation. There is subcutaneous edema and bru ising over the anterior left upper thigh. The bruising measures up to 3.3 cm in thickness. No evidenc e of a pseudoaneurysm. No evidence of any intraperitoneal hemorrhage. No free fluid in the pelvis. No pelvic mass. The blad linda distends smoothly. IMPRESSION: Left-sided groin hematoma as above. No evidence of aneurysm or pseudoaneurysm. No contrast extravasat ion. No evidence of active bleeding. No evidence of hemodynamic stenosis. Atherosclerotic vascular disease. Bilateral pleural effusions with basilar pulmonary infiltrates. Thi s could be some chronic congestive heart failure. Left upper lobe pneumonia.
--- NOTE | 2022-01-03 18:41 | P.PCN ---
Date of Procedure: 01/03/22 Operative Findings: PERCUTANEOUS PERIPHERAL INTERVENTION Performing physician Mckinley Stewart M.D. Procedure performed #1 stenting of the left common femoral artery and left profunda using 7.0 x 18 mm Zilver PTX drug-coated stent (as a bailout" #2 attempted balloon angioplasty of the left SFA and left popliteal #3 left lower extremities angiogram #4 right common femoral artery angiogram #5 ultrasound-guided access of the left posterior tibial artery #6 overall extremely complex procedure Indication Critical limb ischemia of the left foot Approach Right common femoral artery and left posterior tibial artery Complications None Level of sedation Moderate with a sedation time of 3 hours Procedure description After obtaining an informed consent the patient was brought to the cardiac airport maintenance laborer. Initially the left posterior tibial artery was cannulated using puncture technique under ultrasound guidance, the micropuncture wire passed easily replace a slender 6/5-[place] sheath. At that point I did start a combination of heparin as well as verapamil as well as nitroglycerin infusion through the SideArm of the sheath. Then systemic anticoagulation was initiated using heparin and the patient was given weight-based heparin with continuous ACT monitoring. After that attempting crossing the chronic total occlusion of the left popliteal and left SFA from retrograde technique was unsuccessful in spite of trying multiple wires including 018 and 035 wires. At that point I decided to cross in antegrade technique. I placed a 6-[place] 70 cm sheath in the right common femoral artery where the sheath then was advanced up and over using 5- [place] rim catheter. Subsequently I did advance the sheath over the wire and the catheter to the left external iliac artery which was stented. Attempting crossing the chronic total occlusion also was unsuccessful. Finally from down in a retrograde technique I was able to advance a wire all the way to the left common femoral artery from the left popliteal. I advanced O356 I catheter. Subsequently an angiogram was performed and showed dissection involving the left common femoral artery and left profunda. Balloon angioplasty initially was performed hoping to tackle the dissection but that was unsuccessful. Because of that and as a bailout I decided to stent the left common femoral artery and left profunda. I placed a 7.0 x 80 millimeter self-expandable stent where the stent was positioned under fluoroscopy guidance and deployed under fluoroscopy guidance then postdilated using 6 mm balloon. Finally I was able to restore the flow to the profunda. Final angiogram was performed and showed what it seems to be 3 vessels run off below the knee but very sluggish. Her arteries below the knee where small to start with. At that point I decided to stop and I decided to exchange my long sheath into short sheath over 035 wire. Final selective right common femoral artery angiogram was performed. The procedure at that point in did without any complication. Point to be transferred to 3 S. for sheath pull. Postprocedure management #1 dual antiplatelet therapy #2 aggressive cholesterol control #3 risk factors modification #4 follow-up with the patient
[2022-01-03 18:45] LABS: Anisocytosis Slight; Basophils % (A) 0 %; Eosinophils % (A) 0 %; Hypochromasia Marked; Lymphocytes # (A) 0.8 k/uL (1.0-4.8); Lymphocytes % (A) 7 %; MCH 27.8 pg (25.0-35.0); MCHC 30.1 g/dL (31.0-37.0); MCV 92.1 fL (80.0-100.0); Mean Platelet Volume 7.4; Monocytes # (A) 0.7 k/uL (0-1.0); Monocytes % (A) 6 %; Neutrophils # (A) 10.7 k/uL (1.3-7.7); Neutrophils % (A) 87 %; Platelet Count 169 k/uL (150-450); RBC 2.15 m/uL (3.80-5.40); RDW 16.3 % (11.5-15.5); WBC 12.4 k/uL (3.8-10.6)
[2022-01-03 18:48] LABS: HCT 19.8 % (34.0-46.0)
[2022-01-03] MEDS: NOREPINEPHRINE 4 MG in SODIUM CHLORIDE 0.9% 250 ML IV SCH (19:05)
[2022-01-03] MEDS: NON FORMULARY DRUG (Fluticasone Propion/Salmeterol [Advair 500-50 Diskus] 1 EACH Blst.W.De INHALATION SCH ×2 (19:53→19:54)
[2022-01-03] MEDS ORDERED: ONDANSETRON 4 MG/2 ML VIAL IVP PRN (20:25)
[2022-01-03 20:31] LABS: Glucose,Whole Blood 167 mg/dL (70-110)
[2022-01-03 20:47] LABS: Anisocytosis Slight; HCT 23.3 % (34.0-46.0); Hypochromasia Marked; MCH 27.8 pg (25.0-35.0); MCHC 30.3 g/dL (31.0-37.0); MCV 91.8 fL (80.0-100.0); Mean Platelet Volume 7.8; Platelet Count 212 k/uL (150-450); RBC 2.53 m/uL (3.80-5.40); RDW 16.4 % (11.5-15.5); WBC 20.4 k/uL (3.8-10.6)
[2022-01-03 20:57] LABS: ALT 15 U/L (4-34); AST 19 U/L (14-36); African American GFR (CKD) >90 (>60 ml/min/1.73 sqM); Albumin 2.3 g/dL (3.5-5.0); Alkaline Phosphatase 49 U/L (38-126); Anion Gap 1 mmol/L; Blood Urea Nitrogen 17 mg/dL (7-17); Calcium 6.8 mg/dL (8.4-10.2); Carbon Dioxide 24 mmol/L (22-30); Chloride 111 mmol/L (98-107); Glucose 149 mg/dL (74-99); Non-African American GFR(CKD) >90 (>60 ml/min/1.73 sqM); Potassium 4.2 mmol/L (3.5-5.1); Sodium 136 mmol/L (137-145); Total Bilirubin 0.2 mg/dL (0.2-1.3); Total Protein 4.2 g/dL (6.3-8.2)
[2022-01-03 21:00] LABS: INR 1.2 (<1.2); Prothrombin Time 12.9 sec (9.0-12.0)
[2022-01-03] MEDS ORDERED: HYDROXYCHLOROQUINE SULFATE 200 MG TAB PO SCH (21:00)
[2022-01-03] MEDS ORDERED: HYDROCORTISONE SUCCINATE 100 MG/2 ML VIAL ONE (21:14)
[2022-01-03] MEDS ORDERED: LORazepam 2 MG/ML INJ IV ONE (21:14)
[2022-01-03] MEDS ORDERED: fentaNYL (PF) 50 MCG/ML 2 ML AMP IVP ONE (21:15)
[2022-01-03] MEDS ORDERED: HYDROCORTISONE SUCCINATE 100 MG/2 ML VIAL IV STA (21:15)
[2022-01-03] MEDS ORDERED: LACTATED RINGERS 1,000 ML IV ONE ×2 (21:30)
--- NOTE | 2022-01-03 21:45 | XR ---
EXAMINATION TYPE: XR chest 1V portable DATE OF EXAM: 01/03/2022 COMPARISON: 08/06/2021 HISTORY: Short of breath TECHNIQUE: Single view FINDINGS: There is some airspace infiltrate in the left lower lobe. Right lung is fairly clear. No he art failure seen. There are chest leads. Thoracic aorta is atheromatous. There are surgical clips ove r the left breast. IMPRESSION: There is left lower lobe pneumonia. There is improvement in the pleural effusions compare d to old exam. There is improvement in the pulmonary vascular congestion.
[2022-01-03] MEDS: PANTOPRAZOLE 40 MG TABLET PO SCH (22:34)
[2022-01-03] MEDS: LACTATED RINGERS 1,000 ML IV SCH (22:51)
[2022-01-03] MEDS: METOPROLOL TARTRATE 12.5 MG TAB PO SCH (23:12)
[2022-01-03] MEDS: GABAPENTIN 300 MG CAP PO SCH (23:59)
[2022-01-03] MEDS: ATORVASTATIN 80 MG TAB PO SCH (23:59)
[2022-01-04] MEDS: HYDROXYCHLOROQUINE SULFATE 200 MG TAB PO SCH ×3 (00:25→20:26)
[2022-01-04] MEDS: HYDROCORTISONE SUCCINATE 100 MG/2 ML VIAL IV SCH ×4 (01:03→16:09)
--- NOTE | 2022-01-04 02:15 | P.CONS ---
History of Present Illness - Reason for Consult Consult date: 01/03/22 - History of Present Illness The patient is a 66-year-old female with an extensive PMH including advanced COPD, A. fib (not on anticoagulation), hyperlipidemia, and peripheral arterial disease who was admitted for percutaneous intervention of critical ischemia of the left foot. The patient had stenting of the left common femoral artery with an attempted balloon angioplasty of the left SFA and left popliteal. Postopera tively, the patient developed left-sided groin hematoma. Hemoglobin was noted to be 6.8, down from 12.3 from earlier in the day. Repeat hemoglobin 50 minutes later had again dropped to 6.0. At time of evaluation, the patient was noted to be pale. She reported 7 out of 10 pain at the left leg and feeling overall ill. Of note, the patient was ordered 1 unit PRBCs transfusion. Roughly 20 minutes following the initiation of the transfusion, the patient was noted to be pale. She endorsed mild shortness of breath and was noted to be hypothermic to 94.6F. Review of systems: Pertinent positives and negatives as discussed in HPI, a complete review of systems was performed and all other systems are negative. Physical examination: General: Pale ill appearing elderly female, appears older than stated age, thin Derm: no unusual rashes/lesions, warm Head: atraumatic, normocephalic, symmetric Eyes: EOMI, no lid lag, anicteric sclera, pupils equal round reactive to light ENT: Nose and ears atraumatic Neck: No cervical lymphadenopathy, trachea midline, supple Mouth: no lip lesion, mucus membranes dry Cardiovascular: S1S2 reg, no murmur, positive dorsalis pedis pulse bilateral, no edema Lungs: CTA bilateral, no rhonchi, no rales, no accessory muscle use Abdominal: soft, nontender to palpation, no guarding Ext: Left thigh swelling noted, no gross muscle atrophy, no contractures, Neuro: CN II-XI grossly intact, no gross focal neuro deficits Psych: Slow to respond, oriented, appropriate affect Assessment/plan Acute blood loss anemia secondary to left thigh and groin hematoma pos toperatively -2 units PRBCs ordered to be transfused stat -Case discussed with Dr. Medley at the bedside -Low suspicion for acute transfusion reaction at this time Chronic conditions: Hyperlipidemia, COPD, hypertension -Continue home meds -Hold antihypertensives in setting of borderline BP Past Medical History Past Medical History: Atrial Fibrillation, Cancer, COPD, GERD/Reflux, Hyperlipidemia, Pneumonia, Respiratory Disorder, Vascular Disorder Additional Past Medical History / Comment(s): , L upper lobe nodule being monitored, home oxygen at 2L/CONTINOUS, PVD, osteoporosis, constipation. 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 Past Anesthesia/Blood Transfusion Reactions: Previous Problems w/ Anesthesia Additional Past Anesthesia/Blood Transfusion Reaction / Comm: SLOW TO WAKE UP. Smoking Status: Former smoker - Past Family History Father Family Medical History: Cancer Additional Family Medical History / Comment(s): LUNG CANCER. Mother Family Medical History: Cancer Additional Family Medical History / Comment(s): BREAST CANCER. Medications and Allergies Home Medications Medication Instructions Recorded Confirmed Type Hydroxychloroquine Sulfate 200 mg PO BID 03/29/15 01/02/22 History [Plaquenil] Fluticasone Propion/Salmeterol 1 puff INHALATION RT-BID 05/31/16 01/02/22 History [Advair 500-50 Diskus] Gabapentin [Neurontin] 300 mg PO BID 04/07/19 01/02/22 History Levalbuterol Hfa Inhaler [Xopenex 1 puff INHALATION RT-Q6H PRN 04/07/19 01/02/22 History Hfa Inhaler] Calcium Carbonate [Calcium] 1,200 mg PO DAILY 04/29/19 01/02/22 History Letrozole [Femara] 2.5 mg PO DAILY 10/23/19 01/02/22 History Albuterol Nebulized [Ventolin 2.5 mg INHALATION RT-QID PRN 11/04/20 01/03/22 History Nebulized] Docusate [Colace] 100 mg PO DAILY 01/09/21 01/02/22 History buPROPion HCL [Wellbutrin SR] 100 mg PO DAILY 01/09/21 01/02/22 History Atorvastatin [Lipitor] 80 mg PO HS #90 tab 07/29/21 01/02/22 Rx Clopidogrel [Plavix] 75 mg PO DAILY #90 tab 07/29/21 01/02/22 Rx ALPRAZolam [Xanax] 0.25 mg PO BID PRN 08/03/21 01/02/22 History Cholecalciferol [Vitamin D3 (25 50 mcg PO DAILY 08/03/21 01/02/22 History Mcg = 1000 Iu)] Tiotropium 2.5 Mcg/Puff [Spiriva 2 puff INHALATION RT-DAILY 08/03/21 01/03/22 History Respimat 2.5 Mcg] Metoprolol Tartrate [Lopressor] 12.5 mg PO BID 30 Days #60 tab 08/05/21 01/02/22 Rx Pantoprazole Sodium [Protonix] 40 mg PO BID #60 tab 08/07/21 01/02/22 Rx Furosemide [Lasix] 20 mg PO DAILY 11/30/21 01/02/22 History hydroCHLOROthiazide [Hydrodiuril] 25 mg PO DAILY 11/30/21 01/02/22 History Allergies Allergy/AdvReac Type Severity Reaction Status Date / Time banana Allergy Abdominal Verified 01/03/22 09:35 Pain budesonide [From Pulmicort] Allergy Dyspnea Verified 01/03/22 09:35 Iodinated Contrast Media Allergy Anaphylaxis Verified 01/03/22 09:35 [Iodinated Contrast Media - IV Dye] penicillin G Allergy Rash/Hives Verified 01/03/22 09:35 codeine AdvReac Nausea & Verified 01/03/22 09:35 Vomiting levofloxacin AdvReac joint pain Verified 01/03/22 09:35 verapamil AdvReac HEADACHE Verified 01/03/22 09:35 Physical Exam Vitals: Vital Signs Temp Pulse Pulse Pulse Resp BP BP 01/03/22 22:45 80 18 136/51 01/03/22 22:30 81 27 H 128/50 01/03/22 22:15 82 22 107/54 01/03/22 22:00 84 19 126/44 01/03/22 21:45 95.5 F L 82 19 121/53 01/03/22 21:30 95.2 F L 81 28 H 124/37 01/03/22 21:15 86 18 107/57 01/03/22 21:04 90 01/03/22 21:00 90 22 96/57 01/03/22 20:57 93 01/03/22 20:45 88 27 H 92/57 01/03/22 20:44 95.5 F L 84 20 126/44 01/03/22 20:30 88 25 H 96/62 01/03/22 20:27 94.6 F L 32 H 106/56 01/03/22 20:15 88 24 114/65 01/03/22 20:00 84 28 H 92/54 01/03/22 19:40 89 12 01/03/22 19:30 81 16 119/65 01/03/22 19:20 77 19 119/65 01/03/22 19:13 98.3 F 80 18 100/41 01/03/22 19:10 77 15 119/65 01/03/22 19:00 81 30 H 01/03/22 18:50 77 20 119/65 01/03/22 18:40 73 22 01/03/22 18:30 75 24 01/03/22 18:20 75 22 01/03/22 18:14 74 57 H 01/03/22 17:50 70 22 01/03/22 17:30 70 01/03/22 17:20 52 L 19 01/03/22 17:05 69 16 01/03/22 16:30 68 18 01/03/22 16:15 71 18 01/03/22 16:00 70 16 01/03/22 15:45 70 18 01/03/22 15:30 68 01/03/22 15:15 70 16 95/54 01/03/22 14:58 96.9 F L 71 16 102/57 01/03/22 09:44 98 F 91 18 BP BP Pulse Ox 01/03/22 22:45 98 01/03/22 22:30 100 01/03/22 22:15 100 01/03/22 22:00 100 01/03/22 21:45 100 01/03/22 21:30 100 01/03/22 21:15 99 01/03/22 21:04 01/03/22 21:00 100 01/03/22 20:57 01/03/22 20:45 100 01/03/22 20:44 01/03/22 20:30 01/03/22 20:27 01/03/22 20:15 99 01/03/22 20:00 99 01/03/22 19:40 100 01/03/22 19:30 98 01/03/22 19:20 100 01/03/22 19:13 100 01/03/22 19:10 100 01/03/22 19:00 99 01/03/22 18:50 100 01/03/22 18:40 100 01/03/22 18:30 99 01/03/22 18:20 96 01/03/22 18:14 98 01/03/22 17:50 99 01/03/22 17:30 93/56 01/03/22 17:20 101/49 96 01/03/22 17:05 79/50 90 L 01/03/22 16:30 94/50 97 01/03/22 16:15 97/50 98 01/03/22 16:00 96/52 98 01/03/22 15:45 95/53 97 01/03/22 15:30 90/50 98 01/03/22 15:15 100 01/03/22 14:58 100 01/03/22 09:44 145/76 97 Intake and Output 01/03/22 01/03/22 01/04/22 14:59 22:59 06:59 Intake Total 1963 1123.114 Output Total 785 Balance 1962 338.114 Intake: IV 1963 675 Lactated Ringers 1,000 ml 400 @ 999 mls/hr IV .Q1H1M ONE Rx#:[id number] Lactated Ringers @ 75ml/ 100 hr Intake, IV Titration 58.114 Amount Norepinephrine 4 mg In 58.114 Sodium Chloride 0.9% 250 ml @ 0.05 MCG/KG/MIN 9. 773 mls/hr IV .Q24H COUNTS INCLUDE 234 BEDS AT THE [facility] Rx#:[id number] Blood Product 390 Rc As-1 Unit 0 [id number] Rc As-1 Unit 40 [id number] Output: Urine 785 Other: Weight 51.3 kg ABP, PAP, CO, CI - Last 8 Hours Arterial Blood Pressure 130/62 Arterial Blood Pressure 127/62 Arterial Blood Pressure 128/60 Arterial Blood Pressure 124/56 Arterial Blood Pressure 118/57 Arterial Blood Pressure 132/60 Arterial Blood Pressure 123/62 Arterial Blood Pressure 92/47 Arterial Blood Pressure 90/54 Arterial Blood Pressure 109/59 Arterial Blood Pressure 94/49 Arterial Blood Pressure 113/51 Arterial Blood Pressure 117/17 Arterial Blood Pressure 83/43 Arterial Blood Pressure 106/47 Arterial Blood Pressure 79/38 Arterial Blood Pressure 76/34 Arterial Blood Pressure 91/43 Arterial Blood Pressure 106/47 Arterial Blood Pressure 119/48 Arterial Blood Pressure 126/47 Arterial Blood Pressure 129/53 Arterial Blood Pressure 126/47 Results CBC & Chem 7: 01/03/22 20:33 01/03/22 20:33 Labs: Abnormal Lab Results - Last 24 Hours (Table) 01/03/22 01/03/22 01/03/22 Range/Units 09:40 09:40 17:43 WBC 13.4 H (3.8-10.6) k/uL RBC 2.50 L (3.80-5.40) m/uL Hgb 6.8 L* D (11.4-16.0) gm/dL Hct 23.0 L (34.0-46.0) % MCHC 30.5 L 29.5 L (31.0-37.0) g/dL RDW 16.1 H 16.3 H (11.5-15.5) % Neutrophils # 8.4 H 11.5 H (1.3-7.7) k/uL Lymphocytes # 0.8 L 0.9 L (1.0-4.8) k/uL PT (9.0-12.0) sec INR (<1.2) Sodium (137-145) mmol/L Chloride (98-107) mmol/L Creatinine 0.43 L (0.52-1.04) mg/dL Glucose 114 H (74-99) mg/dL POC Glucose (mg/dL) (70-110) mg/dL Calcium (8.4-10.2) mg/dL Total Protein (6.3-8.2) g/dL Albumin (3.5-5.0) g/dL Crossmatch 01/03/22 01/03/22 01/03/22 Range/Units 17:43 17:49 18:13 WBC (3.8-10.6) k/uL RBC (3.80-5.40) m/uL Hgb (11.4-16.0) gm/dL Hct (34.0-46.0) % MCHC (31.0-37.0) g/dL RDW (11.5-15.5) % Neutrophils # (1.3-7.7) k/uL Lymphocytes # (1.0-4.8) k/uL PT (9.0-12.0) sec INR (<1.2) Sodium (137-145) mmol/L Chloride 113 H (98-107) mmol/L Creatinine 0.42 L (0.52-1.04) mg/dL Glucose 122 H (74-99) mg/dL POC Glucose (mg/dL) 139 H (70-110) mg/dL Calcium 6.2 L* (8.4-10.2) mg/dL Total Protein (6.3-8.2) g/dL Albumin (3.5-5.0) g/dL Crossmatch See Detail 01/03/22 01/03/22 01/03/22 Range/Units 18:30 20:29 20:30 WBC 12.4 H (3.8-10.6) k/uL RBC 2.15 L (3.80-5.40) m/uL Hgb 6.0 L* (11.4-16.0) gm/dL Hct 19.8 L* (34.0-46.0) % MCHC 30.1 L (31.0-37.0) g/dL RDW 16.3 H (11.5-15.5) % Neutrophils # 10.7 H (1.3-7.7) k/uL Lymphocytes # 0.8 L (1.0-4.8) k/uL PT (9.0-12.0) sec INR (<1.2) Sodium (137-145) mmol/L Chloride (98-107) mmol/L Creatinine (0.52-1.04) mg/dL Glucose (74-99) mg/dL POC Glucose (mg/dL) 167 H (70-110) mg/dL Calcium (8.4-10.2) mg/dL Total Protein (6.3-8.2) g/dL Albumin (3.5-5.0) g/dL Crossmatch See Detail 01/03/22 01/03/22 01/03/22 Range/Units 20:33 20:33 20:33 WBC 20.4 H (3.8-10.6) k/uL RBC 2.53 L (3.80-5.40) m/uL Hgb 7.0 L (11.4-16.0) gm/dL Hct 23.3 L (34.0-46.0) % MCHC 30.3 L (31.0-37.0) g/dL RDW 16.4 H (11.5-15.5) % Neutrophils # (1.3-7.7) k/uL Lymphocytes # (1.0-4.8) k/uL PT 12.9 H (9.0-12.0) sec INR 1.2 H (<1.2) Sodium 136 L (137-145) mmol/L Chloride 111 H (98-107) mmol/L Creatinine 0.46 L (0.52-1.04) mg/dL Glucose 149 H (74-99) mg/dL POC Glucose (mg/dL) (70-110) mg/dL Calcium 6.8 L (8.4-10.2) mg/dL Total Protein 4.2 L (6.3-8.2) g/dL Albumin 2.3 L (3.5-5.0) g/dL Crossmatch
[2022-01-04 03:02] LABS: Basophils % (A) 0 %; Eosinophils % (A) 0 %; HCT 30.9 % (34.0-46.0); Hypochromasia Slight; Lymphocytes # (A) 0.5 k/uL (1.0-4.8); Lymphocytes % (A) 3 %; MCH 29.1 pg (25.0-35.0); MCHC 32.1 g/dL (31.0-37.0); MCV 90.7 fL (80.0-100.0); Mean Platelet Volume 8.3; Monocytes # (A) 0.6 k/uL (0-1.0); Monocytes % (A) 4 %; Neutrophils # (A) 15.6 k/uL (1.3-7.7); Neutrophils % (A) 92 %; Platelet Count 132 k/uL (150-450); RDW 14.9 % (11.5-15.5); WBC 16.9 k/uL (3.8-10.6)
[2022-01-04 03:06] LABS: HGB 9.9 gm/dL (11.4-16.0)
[2022-01-04] MEDS: fentaNYL (PF) 50 MCG/ML 2 ML AMP IVP PRN (04:37)
[2022-01-04 05:25] LABS: Basophils % (A) 0 %; Eosinophils % (A) 0 %; HCT 30.5 % (34.0-46.0); Hypochromasia Moderate; Lymphocytes # (A) 0.4 k/uL (1.0-4.8); Lymphocytes % (A) 3 %; MCH 30.2 pg (25.0-35.0); MCHC 32.9 g/dL (31.0-37.0); Mean Platelet Volume 8.5; Monocytes # (A) 0.5 k/uL (0-1.0); Monocytes % (A) 3 %; Neutrophils # (A) 14.1 k/uL (1.3-7.7); Neutrophils % (A) 93 %; Platelet Count 140 k/uL (150-450); Poikilocytosis Slight; RBC 3.32 m/uL (3.80-5.40); RDW 15.5 % (11.5-15.5); WBC 15.2 k/uL (3.8-10.6)
[2022-01-04 05:55] LABS: African American GFR (CKD) >90 (>60 ml/min/1.73 sqM); Anion Gap 2 mmol/L; Blood Urea Nitrogen 18 mg/dL (7-17); Calcium 6.6 mg/dL (8.4-10.2); Carbon Dioxide 26 mmol/L (22-30); Chloride 112 mmol/L (98-107); Glucose 108 mg/dL (74-99); Non-African American GFR(CKD) >90 (>60 ml/min/1.73 sqM); Potassium 3.9 mmol/L (3.5-5.1); Sodium 140 mmol/L (137-145)
[2022-01-04] MEDS: PANTOPRAZOLE 40 MG TABLET PO SCH ×2 (06:35→15:49)
--- NOTE | 2022-01-04 07:22 | P.PN ---
Subjective Progress Note Date: 01/04/22 Principal diagnosis: Lower extremities peripheral arterial disease The patient is a very pleasant 66-year-old female patient was advanced chronic hypoxic respiratory failure/chronic obstructive pulmonary disease as well as significant history of smoking before and also lower extremities peripheral arterial disease. She underwent in the past stenting of the right and left comm on iliac arteries. She is known to have occluded left SFA. The left SFA occlusion was treated medically for low thigh the recently where she started experiencing resting pain in the left foot. For that reason I did perform a CTA. The CTA confirmed the occlusion of the left SFA on long segment extending from the ostium all the way to the popliteal with patent femoral artery bilaterally and patent bilateral iliac stents. She was brought yesterday to the hospital to undergo a FAST FOOD SHIFT SUPERVISOR of the left SFA. Crossing the SFA was extremely challenging. By that and I was able to cross from down in retrograde fashion. I advanced my catheter over the wire and subsequently an angiogram was performed and revealed it seems to be possible dissection involving the common femoral and profunda. I did bail out stenting of both the common femoral as well as profunda. With a good angiographic results and without any complication. Subsequently postprocedure the patient was hypotensive and she was brought to the intensive care unit. She was looking pale. There was a concern about hematoma involving the left thigh where the stent was placed. For that reason computed tomography scan with contrast was performed and showed about 6 cm hematoma involving the left femoral artery. No active bleeding was noticed. The patient was treated with supportive measurement including IV fluid as well as she received 2 units of packed RBC. She was seen this morning. She is looking much better clinically. She is off norepinephrine completely. Her urine output has been wonderful. Her pain in the left thigh has improved significantly. The hematoma/swelling of the left thigh appears to be stable as well as. I am going to pull the sheath from the right groin which was used as an arterial line and try to get the patient up and around and hopefully preparing her for discharge in the next 24-48 hours. Beside that we'll continue monitor the kidney function and electrolytes. We will continue monitor the hemoglobin as well. For now I'll keep her on dual antiplatelet therapy along with high intensity statin and follow-up with the patient. Objective - Vital Signs Vital signs: Vital Signs Temp 98.8 F 01/04/22 04:00 Pulse 86 01/04/22 07:00 Resp 20 01/04/22 07:00 BP 112/55 01/04/22 07:00 Pulse Ox 97 01/04/22 07:00 FiO2 Intake & Output 01/03/22 01/04/22 01/04/22 18:59 06:59 18:59 Intake Total 2138 1816.114 78 Output Total 1100 30 Balance 2138 716.114 48 Weight 55.3 kg 55.3 kg Intake: IV 2138 1058 78 Flush for Arterial Line 33 3 Lactated Ringers 1,000 ml 400 @ 999 mls/hr IV .Q1H1M ONE Rx#:[id number] Lactated Ringers @ 75ml/ 625 75 hr Intake, IV Titration 58.114 Amount Norepinephrine 4 mg In 58.114 Sodium Chloride 0.9% 250 ml @ 0.05 MCG/KG/MIN 9. 773 mls/hr IV .Q24H [facility] Rx#:[id number] Blood Product 700 Rc As-1 Unit 310 [id number] Rc As-1 Unit 40 [id number] Rc Pheresis 2 As3 Unit 0 [id number] Output: Urine 1100 30 Other: Voiding Method Indwelling Catheter ABP, PAP, CO, CI - Last Documented Arterial Blood Pressure 138/60 - Constitutional General appearance: Present: no acute distress - Respiratory Respiratory: bilateral: diminished - Cardiovascular Rhythm: regular - Labs CBC & Chem 7: 01/04/22 05:15 01/04/22 05:15 Labs: Abnormal Lab Results - Last 24 Hours (Table) 01/03/22 01/03/22 01/03/22 Range/Units 09:40 09:40 17:43 WBC 13.4 H (3.8-10.6) k/uL RBC 2.50 L (3.80-5.40) m/uL Hgb 6.8 L* D (11.4-16.0) gm/dL Hct 23.0 L (34.0-46.0) % MCHC 30.5 L 29.5 L (31.0-37.0) g/dL RDW 16.1 H 16.3 H (11.5-15.5) % Plt Count (150-450) k/uL Neutrophils # 8.4 H 11.5 H (1.3-7.7) k/uL Lymphocytes # 0.8 L 0.9 L (1.0-4.8) k/uL PT (9.0-12.0) sec INR (<1.2) Sodium (137-145) mmol/L Chloride (98-107) mmol/L BUN (7-17) mg/dL Creatinine 0.43 L (0.52-1.04) mg/dL Glucose 114 H (74-99) mg/dL POC Glucose (mg/dL) (70-110) mg/dL Calcium (8.4-10.2) mg/dL Total Protein (6.3-8.2) g/dL Albumin (3.5-5.0) g/dL Crossmatch 01/03/22 01/03/22 01/03/22 Range/Units 17:43 17:49 18:13 WBC (3.8-10.6) k/uL RBC (3.80-5.40) m/uL Hgb (11.4-16.0) gm/dL Hct (34.0-46.0) % MCHC (31.0-37.0) g/dL RDW (11.5-15.5) % Plt Count (150-450) k/uL Neutrophils # (1.3-7.7) k/uL Lymphocytes # (1.0-4.8) k/uL PT (9.0-12.0) sec INR (<1.2) Sodium (137-145) mmol/L Chloride 113 H (98-107) mmol/L BUN (7-17) mg/dL Creatinine 0.42 L (0.52-1.04) mg/dL Glucose 122 H (74-99) mg/dL POC Glucose (mg/dL) 139 H (70-110) mg/dL Calcium 6.2 L* (8.4-10.2) mg/dL Total Protein (6.3-8.2) g/dL Albumin (3.5-5.0) g/dL Crossmatch See Detail 01/03/22 01/03/22 01/03/22 Range/Units 18:30 20:29 20:30 WBC 12.4 H (3.8-10.6) k/uL RBC 2.15 L (3.80-5.40) m/uL Hgb 6.0 L* (11.4-16.0) gm/dL Hct 19.8 L* (34.0-46.0) % MCHC 30.1 L (31.0-37.0) g/dL RDW 16.3 H (11.5-15.5) % Plt Count (150-450) k/uL Neutrophils # 10.7 H (1.3-7.7) k/uL Lymphocytes # 0.8 L (1.0-4.8) k/uL PT (9.0-12.0) sec INR (<1.2) Sodium (137-145) mmol/L Chloride (98-107) mmol/L BUN (7-17) mg/dL Creatinine (0.52-1.04) mg/dL Glucose (74-99) mg/dL POC Glucose (mg/dL) 167 H (70-110) mg/dL Calcium (8.4-10.2) mg/dL Total Protein (6.3-8.2) g/dL Albumin (3.5-5.0) g/dL Crossmatch See Detail 01/03/22 01/03/22 01/03/22 Range/Units 20:33 20:33 20:33 WBC 20.4 H (3.8-10.6) k/uL RBC 2.53 L (3.80-5.40) m/uL Hgb 7.0 L (11.4-16.0) gm/dL Hct 23.3 L (34.0-46.0) % MCHC 30.3 L (31.0-37.0) g/dL RDW 16.4 H (11.5-15.5) % Plt Count (150-450) k/uL Neutrophils # (1.3-7.7) k/uL Lymphocytes # (1.0-4.8) k/uL PT 12.9 H (9.0-12.0) sec INR 1.2 H (<1.2) Sodium 136 L (137-145) mmol/L Chloride 111 H (98-107) mmol/L BUN (7-17) mg/dL Creatinine 0.46 L (0.52-1.04) mg/dL Glucose 149 H (74-99) mg/dL POC Glucose (mg/dL) (70-110) mg/dL Calcium 6.8 L (8.4-10.2) mg/dL Total Protein 4.2 L (6.3-8.2) g/dL Albumin 2.3 L (3.5-5.0) g/dL Crossmatch 01/04/22 01/04/22 01/04/22 Range/Units 02:36 05:15 05:15 WBC 16.9 H 15.2 H (3.8-10.6) k/uL RBC 3.40 L 3.32 L (3.80-5.40) m/uL Hgb 9.9 L D 10.0 L (11.4-16.0) gm/dL Hct 30.9 L 30.5 L (34.0-46.0) % MCHC (31.0-37.0) g/dL RDW (11.5-15.5) % Plt Count 132 L 140 L (150-450) k/uL Neutrophils # 15.6 H 14.1 H (1.3-7.7) k/uL Lymphocytes # 0.5 L 0.4 L (1.0-4.8) k/uL PT (9.0-12.0) sec INR (<1.2) Sodium (137-145) mmol/L Chloride 112 H (98-107) mmol/L BUN 18 H (7-17) mg/dL Creatinine 0.45 L (0.52-1.04) mg/dL Glucose 108 H (74-99) mg/dL POC Glucose (mg/dL) (70-110) mg/dL Calcium 6.6 L (8.4-10.2) mg/dL Total Protein (6.3-8.2) g/dL Albumin (3.5-5.0) g/dL Crossmatch Assessment and Plan Assessment: Assessment #1 critical limb ischemia of the left leg #2 status post a stenting of the left common and left profunda #3 left thigh hematoma #4 blood loss anemia #5 severe COPD #6 multiple comorbid conditions Plan #1 monitor the patient for additional 12-24 hours in the ICU #2 DC the femoral sheath on the right side #3 the patient up and around #4 possible physical therapy as well #5 continue monitor the hemoglobin as well as kidney function #6 continue dual antiplatelet therapy along with high intensity statin We'll continue following up with the patient
[2022-01-04] MEDS: IPRATROPIUM 0.5 MG/2.5 ML NEBU INHALATION SCH ×4 (08:01→20:03)
[2022-01-04] MEDS: NON FORMULARY DRUG (Fluticasone Propion/Salmeterol [Advair 500-50 Diskus] 1 EACH Blst.W.De INHALATION SCH ×2 (08:05→20:02)
--- NOTE | 2022-01-04 08:24 | P.PN ---
Subjective Progress Note Date: 01/04/22 Patient reports feeling significant improvement. She says her pain is much better. She does not feel pale or lightheaded. Her hemoglobin has been stable. Hematoma site has been stable. Patient received 3 units of packed blood cell. Gen: awake, alert HEENT: normocephalic, atraumatic, good hearing acuity, moist mucous membranes Resp: good air exchange, breathing comfortably with no accessory muscle use CVS: good distal perfusion x 4, GI: soft, NTTP, ND : no SPT, no CVAT, koenig catheter not present MSK: no pitting edema, no clubbing Neuro: non-focal, moving all extremities Psych: cooperative, euthymic mood Assessment/plan: Acute blood loss anemia secondary to left thigh and groin hematoma p ostoperatively -2 additional units PRBCs ordered to be transfused stat, now receiving third unit -Hemoglobin stable for last 2 checks at 9.9 and 10 respectively -Continue to follow CBC closely while patient is on dual antiplatelet -Continue cardiology recommendations Chronic conditions: Hyperlipidemia, COPD, hypertension -Continue home meds -Hold antihypertensives in setting of borderline BP Objective - Vital Signs Vital signs: Vital Signs Temp 98.8 F 01/04/22 04:00 Pulse 89 01/04/22 08:14 Resp 20 01/04/22 07:00 BP 112/55 01/04/22 07:00 Pulse Ox 97 01/04/22 07:00 FiO2 Intake & Output 01/03/22 01/04/22 01/04/22 18:59 06:59 18:59 Intake Total 2138 1816.114 78 Output Total 1100 30 Balance 2138 716.114 48 Weight 55.3 kg 55.3 kg Intake: IV 2138 1058 78 Flush for Arterial Line 33 3 Lactated Ringers 1,000 ml 400 @ 999 mls/hr IV .Q1H1M [facility] Rx#:[id number] Lactated Ringers @ 75ml/ 625 75 hr Intake, IV Titration 58.114 Amount Norepinephrine 4 mg In 58.114 Sodium Chloride 0.9% 250 ml @ 0.05 MCG/KG/MIN 9. 773 mls/hr IV .Q24H [facility] Rx#:[id number] Blood Product 700 Rc As-1 Unit 310 [id number] Rc As-1 Unit 40 [id number] Rc Pheresis 2 As3 Unit 0 [id number] Output: Urine 1100 30 Other: Voiding Method Indwelling Catheter ABP, PAP, CO, CI - Last Documented Arterial Blood Pressure 138/60 - Labs CBC & Chem 7: 01/04/22 05:15 01/04/22 05:15 Labs: Abnormal Lab Results - Last 24 Hours (Table) 01/03/22 01/03/22 01/03/22 Range/Units 09:40 09:40 17:43 WBC 13.4 H (3.8-10.6) k/uL RBC 2.50 L (3.80-5.40) m/uL Hgb 6.8 L* D (11.4-16.0) gm/dL Hct 23.0 L (34.0-46.0) % MCHC 30.5 L 29.5 L (31.0-37.0) g/dL RDW 16.1 H 16.3 H (11.5-15.5) % Plt Count (150-450) k/uL Neutrophils # 8.4 H 11.5 H (1.3-7.7) k/uL Lymphocytes # 0.8 L 0.9 L (1.0-4.8) k/uL PT (9.0-12.0) sec INR (<1.2) Sodium (137-145) mmol/L Chloride (98-107) mmol/L BUN (7-17) mg/dL Creatinine 0.43 L (0.52-1.04) mg/dL Glucose 114 H (74-99) mg/dL POC Glucose (mg/dL) (70-110) mg/dL Calcium (8.4-10.2) mg/dL Total Protein (6.3-8.2) g/dL Albumin (3.5-5.0) g/dL Crossmatch 01/03/22 01/03/22 01/03/22 Range/Units 17:43 17:49 18:13 WBC (3.8-10.6) k/uL RBC (3.80-5.40) m/uL Hgb (11.4-16.0) gm/dL Hct (34.0-46.0) % MCHC (31.0-37.0) g/dL RDW (11.5-15.5) % Plt Count (150-450) k/uL Neutrophils # (1.3-7.7) k/uL Lymphocytes # (1.0-4.8) k/uL PT (9.0-12.0) sec INR (<1.2) Sodium (137-145) mmol/L Chloride 113 H (98-107) mmol/L BUN (7-17) mg/dL Creatinine 0.42 L (0.52-1.04) mg/dL Glucose 122 H (74-99) mg/dL POC Glucose (mg/dL) 139 H (70-110) mg/dL Calcium 6.2 L* (8.4-10.2) mg/dL Total Protein (6.3-8.2) g/dL Albumin (3.5-5.0) g/dL Crossmatch See Detail 01/03/22 01/03/22 01/03/22 Range/Units 18:30 20:29 20:30 WBC 12.4 H (3.8-10.6) k/uL RBC 2.15 L (3.80-5.40) m/uL Hgb 6.0 L* (11.4-16.0) gm/dL Hct 19.8 L* (34.0-46.0) % MCHC 30.1 L (31.0-37.0) g/dL RDW 16.3 H (11.5-15.5) % Plt Count (150-450) k/uL Neutrophils # 10.7 H (1.3-7.7) k/uL Lymphocytes # 0.8 L (1.0-4.8) k/uL PT (9.0-12.0) sec INR (<1.2) Sodium (137-145) mmol/L Chloride (98-107) mmol/L BUN (7-17) mg/dL Creatinine (0.52-1.04) mg/dL Glucose (74-99) mg/dL POC Glucose (mg/dL) 167 H (70-110) mg/dL Calcium (8.4-10.2) mg/dL Total Protein (6.3-8.2) g/dL Albumin (3.5-5.0) g/dL Crossmatch See Detail 01/03/22 01/03/22 01/03/22 Range/Units 20:33 20:33 20:33 WBC 20.4 H (3.8-10.6) k/uL RBC 2.53 L (3.80-5.40) m/uL Hgb 7.0 L (11.4-16.0) gm/dL Hct 23.3 L (34.0-46.0) % MCHC 30.3 L (31.0-37.0) g/dL RDW 16.4 H (11.5-15.5) % Plt Count (150-450) k/uL Neutrophils # (1.3-7.7) k/uL Lymphocytes # (1.0-4.8) k/uL PT 12.9 H (9.0-12.0) sec INR 1.2 H (<1.2) Sodium 136 L (137-145) mmol/L Chloride 111 H (98-107) mmol/L BUN (7-17) mg/dL Creatinine 0.46 L (0.52-1.04) mg/dL Glucose 149 H (74-99) mg/dL POC Glucose (mg/dL) (70-110) mg/dL Calcium 6.8 L (8.4-10.2) mg/dL Total Protein 4.2 L (6.3-8.2) g/dL Albumin 2.3 L (3.5-5.0) g/dL Crossmatch 01/04/22 01/04/22 01/04/22 Range/Units 02:36 05:15 05:15 WBC 16.9 H 15.2 H (3.8-10.6) k/uL RBC 3.40 L 3.32 L (3.80-5.40) m/uL Hgb 9.9 L D 10.0 L (11.4-16.0) gm/dL Hct 30.9 L 30.5 L (34.0-46.0) % MCHC (31.0-37.0) g/dL RDW (11.5-15.5) % Plt Count 132 L 140 L (150-450) k/uL Neutrophils # 15.6 H 14.1 H (1.3-7.7) k/uL Lymphocytes # 0.5 L 0.4 L (1.0-4.8) k/uL PT (9.0-12.0) sec INR (<1.2) Sodium (137-145) mmol/L Chloride 112 H (98-107) mmol/L BUN 18 H (7-17) mg/dL Creatinine 0.45 L (0.52-1.04) mg/dL Glucose 108 H (74-99) mg/dL POC Glucose (mg/dL) (70-110) mg/dL Calcium 6.6 L (8.4-10.2) mg/dL Total Protein (6.3-8.2) g/dL Albumin (3.5-5.0) g/dL Crossmatch
--- NOTE | 2022-01-04 08:28 | P.CNPUL ---
History of Present Illness Consult date: 01/04/22 Requesting physician: Mckinley Stewart Reason for consult: COPD, other Chief complaint: Hematoma. History of present illness: Pulmonary/critical care consult, dated 01/04/2022. 66-year-old female with history of endstage/severe COPD. The patient is postop day #1, stenting of the left common femoral artery and left profunda, attempted balloon angioplasty of the left SFA and left popliteal, left lower extremity angiogram, right common femoral artery angiogram, and ultrasound-guided access of the left posterior tibial artery. The patient developed a significant hematoma in the left thigh area, which this morning is significantly improved. I did speak to the radarman last night, because the patient was receiving a blood transfusion that was stopped, because of a possible transfusion reaction. We ended up resuming the blood transfusion, after we kassi a stat cortisol level, gave the patient hydrocortisone 100 mg IV push, and then started the patient on hydrocortisone 50 mg every 6 hours. Today she is looking much better, with stable vital signs. She's on 2 L nasal cannula. She's getting lactated Ringer's at 75 mL an hour. Her hemoglobin this morning is 10. White count 15.2, hemoglobin 10, hematocrit 30.5, platelet count 240,000. Sodium 140, potassium 3.9, chlorides 112, CO2 26 BUN 18 with a creatinine 0.45. Calcium 6.6. Cortisol level was 24. A chest x-ray done yesterday shows some left lower lobe infiltrates. Review of Systems REVIEW OF SYSTEMS: CONSTITUTIONAL: Lethargic. NEUROLOGIC: [ Negative.] HEENT: [ Negative.] CARDIAC: Left thigh hematoma. PULMONARY: Mild shortness of breath. GI: [Negative.] : [Negative.] RHEUMATOLOGIC: [ Negative.] IMMUNOLOGIC: [ Negative.] ENDOCRINE: [Negative. ] DERMATOLOGIC: [Negative.] Past Medical History Past Medical History: Atrial Fibrillation, Cancer, COPD, GERD/Reflux, Hyperlipidemia, Pneumonia, Respiratory Disorder, Vascular Disorder Additional Past Medical History / Comment(s): , L upper lobe nodule being monitored, home oxygen at 2L/CONTINOUS, PVD, osteoporosis, constipation. LEFT BREAST CANCER, History of Any Multi-Drug Resistant Organisms: None Reported Past Surgical History: Breast Surgery, Cholecystectomy, Hysterectomy, Orthopedic Surgery Additional Past Surgical History / Comment(s): 07/29/21 L iliac percutaneous balloon angioplasty with stent/atherectomy/PTBA L femoral artery/[employer] R femoral artery/R iliac stent, abdominal aortagram, bronchoscopies with biopsy, bilateral wrist carpal tunnel, TMJ surgery, left neck cyst removed, colonoscopy, left breast lumpectomy. Past Anesthesia/Blood Transfusion Reactions: Previous Problems w/ Anesthesia Additional Past Anesthesia/Blood Transfusion Reaction / Comment(s): SLOW TO WAKE UP. Smoking Status: Former smoker - Past Family History Father Family Medical History: Cancer Additional Family Medical History / Comment(s): LUNG CANCER. Mother Family Medical History: Cancer Additional Family Medical History / Comment(s): BREAST CANCER. Medications and Allergies Home Medications Medication Instructions Recorded Confirmed Type Hydroxychloroquine Sulfate 200 mg PO BID 03/29/15 01/02/22 History [Plaquenil] Fluticasone Propion/Salmeterol 1 puff INHALATION RT-BID 05/31/16 01/02/22 History [Advair 500-50 Diskus] Gabapentin [Neurontin] 300 mg PO BID 04/07/19 01/02/22 History Levalbuterol Hfa Inhaler [Xopenex 1 puff INHALATION RT-Q6H PRN 04/07/19 01/02/22 History Hfa Inhaler] Calcium Carbonate [Calcium] 1,200 mg PO DAILY 04/29/19 01/02/22 History Letrozole [Femara] 2.5 mg PO DAILY 10/23/19 01/02/22 History Albuterol Nebulized [Ventolin 2.5 mg INHALATION RT-QID PRN 11/04/20 01/03/22 His tory Nebulized] Docusate [Colace] 100 mg PO DAILY 01/09/21 01/02/22 History buPROPion HCL [Wellbutrin SR] 100 mg PO DAILY 01/09/21 01/02/22 History Atorvastatin [Lipitor] 80 mg PO HS #90 tab 07/29/21 01/02/22 Rx Clopidogrel [Plavix] 75 mg PO DAILY #90 tab 07/29/21 01/02/22 Rx ALPRAZolam [Xanax] 0.25 mg PO BID PRN 08/03/21 01/02/22 History Cholecalciferol [Vitamin D3 (25 50 mcg PO DAILY 08/03/21 01/02/22 History Mcg = 1000 Iu)] Tiotropium 2.5 Mcg/Puff [Spiriva 2 puff INHALATION RT-DAILY 08/03/21 01/03/22 History Respimat 2.5 Mcg] Metoprolol Tartrate [Lopressor] 12.5 mg PO BID 30 Days #60 tab 08/05/21 01/02/22 Rx Pantoprazole Sodium [Protonix] 40 mg PO BID #60 tab 08/07/21 01/02/22 Rx Furosemide [Lasix] 20 mg PO DAILY 11/30/21 01/02/22 History hydroCHLOROthiazide [Hydrodiuril] 25 mg PO DAILY 11/30/21 01/02/22 History Allergies Allergy/AdvReac Type Severity Reaction Status Date / Time banana Allergy Abdominal Verified 01/03/22 09:35 Pain budesonide [From Pulmicort] Allergy Dyspnea Verified 01/03/22 09:35 Iodinated Contrast Media Allergy Anaphylaxis Verified 01/03/22 09:35 [Iodinated Contrast Media - IV Dye] penicillin G Allergy Rash/Hives Verified 01/03/22 09:35 codeine AdvReac Nausea & Verified 01/03/22 09:35 Vomiting levofloxacin AdvReac joint pain Verified 01/03/22 09:35 verapamil AdvReac HEADACHE Verified 01/03/22 09:35 Physical Exam Osteopathic Statement: *. No significant issues noted on an osteopathic structural exam other than those noted in the History and Physical/Consult. Vitals: Vital Signs Temp Pulse Pulse Pulse Resp BP BP 01/04/22 08:02 89 01/04/22 07:00 86 20 112/55 01/04/22 06:00 86 20 110/57 01/04/22 05:00 92 18 120/63 01/04/22 04:00 98.8 F 90 20 111/58 01/04/22 03:00 86 21 119/66 01/04/22 02:25 87 19 01/04/22 02:00 87 21 128/60 01/04/22 01:00 76 20 128/48 01/04/22 00:21 80 21 128/48 01/04/22 00:00 96.1 F L 80 23 119/64 01/03/22 23:51 96.1 F L 80 19 114/56 01/03/22 23:46 96.1 F L 84 22 117/57 01/03/22 23:10 80 23 119/64 01/03/22 22:45 80 18 136/51 01/03/22 22:30 81 27 H 128/50 01/03/22 22:15 82 22 107/54 01/03/22 22:00 84 19 126/44 01/03/22 21:45 95.5 F L 82 19 121/53 01/03/22 21:30 95.2 F L 81 28 H 124/37 01/03/22 21:29 96.1 F L 82 22 126/60 01/03/22 21:15 86 18 107/57 01/03/22 21:04 90 01/03/22 21:00 90 22 96/57 01/03/22 20:57 93 01/03/22 20:45 88 27 H 92/57 01/03/22 20:44 95.5 F L 84 20 126/44 01/03/22 20:30 88 25 H 96/62 01/03/22 20:27 94.6 F L 32 H 106/56 01/03/22 20:15 88 24 114/65 01/03/22 20:00 84 23 92/54 01/03/22 19:40 89 12 01/03/22 19:30 81 16 119/65 01/03/22 19:20 77 19 119/65 01/03/22 19:13 98.3 F 80 18 100/41 01/03/22 19:10 77 15 119/65 01/03/22 19:00 81 30 H 01/03/22 18:50 77 20 119/65 01/03/22 18:40 73 22 01/03/22 18:30 75 24 01/03/22 18:20 75 22 01/03/22 18:14 74 57 H 01/03/22 17:50 70 22 01/03/22 17:30 70 01/03/22 17:20 52 L 19 01/03/22 17:05 69 16 01/03/22 16:30 68 18 01/03/22 16:15 71 18 01/03/22 16:00 70 16 01/03/22 15:45 70 18 01/03/22 15:30 68 01/03/22 15:15 70 16 95/54 01/03/22 14:58 96.9 F L 71 16 102/57 01/03/22 09:44 98 F 91 18 BP BP Pulse Ox 01/04/22 08:02 01/04/22 07:00 97 01/04/22 06:00 96 01/04/22 05:00 94 L 01/04/22 04:00 97 01/04/22 03:00 97 01/04/22 02:25 119/66 96 01/04/22 02:00 97 01/04/22 01:00 95 01/04/22 00:21 99 01/04/22 00:00 98 01/03/22 23:51 99 01/03/22 23:46 100 01/03/22 23:10 100 01/03/22 22:45 98 01/03/22 22:30 100 01/03/22 22:15 100 01/03/22 22:00 100 01/03/22 21:45 100 01/03/22 21:30 100 01/03/22 21:29 100 01/03/22 21:15 99 01/03/22 21:04 01/03/22 21:00 100 01/03/22 20:57 01/03/22 20:45 100 01/03/22 20:44 01/03/22 20:30 01/03/22 20:27 01/03/22 20:15 99 01/03/22 20:00 99 01/03/22 19:40 100 01/03/22 19:30 98 01/03/22 19:20 100 01/03/22 19:13 100 01/03/22 19:10 100 01/03/22 19:00 99 01/03/22 18:50 100 01/03/22 18:40 100 01/03/22 18:30 99 01/03/22 18:20 96 01/03/22 18:14 98 01/03/22 17:50 99 01/03/22 17:30 93/56 01/03/22 17:20 101/49 96 01/03/22 17:05 79/50 90 L 01/03/22 16:30 94/50 97 01/03/22 16:15 97/50 98 01/03/22 16:00 96/52 98 01/03/22 15:45 95/53 97 01/03/22 15:30 90/50 98 01/03/22 15:15 100 01/03/22 14:58 100 01/03/22 09:44 145/76 97 Intake and Output 01/03/22 01/04/22 01/04/22 22:59 06:59 14:59 Intake Total 1135.114 856 78 Output Total 785 315 30 Balance 350.114 541 48 Intake: IV 687 546 78 Flush for Arterial Line 12 21 3 Lactated Ringers 1,000 ml 400 @ 999 mls/hr IV .Q1H1M [facility] Rx#:[id number] Lactated Ringers @ 75ml/ 100 525 75 hr Intake, IV Titration 58.114 Amount Norepinephrine 4 mg In 58.114 Sodium Chloride 0.9% 250 ml @ 0.05 MCG/KG/MIN 9. 773 mls/hr IV .Q24H [facility] Rx#:[id number] Blood Product 390 310 Rc As-1 Unit 0 310 [id number] Rc As-1 Unit 40 [id number] Rc Pheresis 2 As3 Unit 0 [id number] Output: Urine 785 315 30 Other: Voiding Method External Catheter Indwelling Catheter Weight 55.3 kg 55.3 kg ABP, PAP, CO, CI - Last 8 Hours Arterial Blood Pressure 138/60 Arterial Blood Pressure 133/58 Arterial Blood Pressure 133/57 Arterial Blood Pressure 130/56 Arterial Blood Pressure 132/57 Arterial Blood Pressure 130/55 Arterial Blood Pressure 126/56 Arterial Blood Pressure 119/55 No acute distress, oriented 3. Awake and alert, oriented, on 2 L nasal c annula. HEENT examination is grossly unremarkable. Neck supple. Full range of motion. No adenopathy thyromegaly or neck vein distention. Cardiovascular examination reveals regular rhythm rate. S1-S2 normal. No S3 or S4. No discernible murmur noted. Heart rate 89 bpm. Lungs reveal mostly clear breath sounds. Mild scattered rhonchi noted. Minimal wheeze noted. No crackles. Breath sounds equal bilaterally. 2 L saturation 97%. Abdomen soft bowel sounds are heard. No masses or tenderness. Extremities are intact. Swelling/hematoma of the left side noted. Skin is without rash or lesion. Neurologic examination is brief but nonfocal. Results - Laboratory Findings CBC and BMP: 01/04/22 05:15 01/04/22 05:15 PT/INR, D-dimer PT 12.9 sec (9.0-12.0) H 01/03/22 20:33 INR 1.2 (<1.2) H 01/03/22 20:33 Abnormal lab findings: Abnormal Labs 01/03/22 01/03/22 01/03/22 09:40 09:40 17:43 WBC 13.4 H RBC 2.50 L Hgb 6.8 L* D Hct 23.0 L MCHC 30.5 L 29.5 L RDW 16.1 H 16.3 H Plt Count Neutrophils # 8.4 H 11.5 H Lymphocytes # 0.8 L 0.9 L PT INR Sodium Chloride BUN Creatinine 0.43 L Glucose 114 H POC Glucose (mg/dL) Calcium Total Protein Albumin Crossmatch 01/03/22 01/03/22 01/03/22 17:43 17:49 18:13 WBC RBC Hgb Hct MCHC RDW Plt Count Neutrophils # Lymphocytes # PT INR Sodium Chloride 113 H BUN Creatinine 0.42 L Glucose 122 H POC Glucose (mg/dL) 139 H Calcium 6.2 L* Total Protein Albumin Crossmatch See Detail 01/03/22 01/03/22 01/03/22 18:30 20:29 20:30 WBC 12.4 H RBC 2.15 L Hgb 6.0 L* Hct 19.8 L* MCHC 30.1 L RDW 16.3 H Plt Count Neutrophils # 10.7 H Lymphocytes # 0.8 L PT INR Sodium Chloride BUN Creatinine Glucose POC Glucose (mg/dL) 167 H Calcium Total Protein Albumin Crossmatch See Detail 01/03/22 01/03/22 01/03/22 20:33 20:33 20:33 WBC 20.4 H RBC 2.53 L Hgb 7.0 L Hct 23.3 L MCHC 30.3 L RDW 16.4 H Plt Count Neutrophils # Lymphocytes # PT 12.9 H INR 1.2 H Sodium 136 L Chloride 111 H BUN Creatinine 0.46 L Glucose 149 H POC Glucose (mg/dL) Calcium 6.8 L Total Protein 4.2 L Albumin 2.3 L Crossmatch 01/04/22 01/04/22 01/04/22 02:36 05:15 05:15 WBC 16.9 H 15.2 H RBC 3.40 L 3.32 L Hgb 9.9 L D 10.0 L Hct 30.9 L 30.5 L MCHC RDW Plt Count 132 L 140 L Neutrophils # 15.6 H 14.1 H Lymphocytes # 0.5 L 0.4 L PT INR Sodium Chloride 112 H BUN 18 H Creatinine 0.45 L Glucose 108 H POC Glucose (mg/dL) Calcium 6.6 L Total Protein Albumin Crossmatch - Diagnostic Findings Chest x-ray: image reviewed Assessment and Plan Assessment: Postop day 1, stenting of the left common femoral artery and left profunda, attempted balloon angioplasty of the SFA and left popliteal, left lower extremity angiogram, right common femoral artery angiogram, and ultrasound- guided access of the left posterior tibial artery. Postprocedure left groin/left thigh hematoma. Postprocedure anemia, S/P 2 units of PRBCs. Severe end-stage COPD, with chronic hypoxemic respiratory failure, status post [place] valve placement, [facility]. Possible adrenal insufficiency. Gastroesophageal reflux disease. Hyperlipidemia. Peripheral vascular occlusive disease. Plan: Plan dated 01/04/2022. The patient had a stat cortisol level drawn last night. I gave the patient 100 mg of hydrocortisone IV push, followed by 50 mg hydrocortisone, IV push, every 6 hours. The patient did very well afterwards. The blood transfusion was restarted. The patient's hemoglobin this morning is 10. Vital signs are stable. Respiratory status is stable. I did speak to the radarman. She'll remain in the intensive care unit for now. Additional recommendations and suggestions are forthcoming. I will likely send her home on prednisone 20 mg a day. Time with Patient: Greater than 30
[2022-01-04] MEDS: buPROPion SR 100 MG TABLET.ER PO SCH (08:35)
[2022-01-04] MEDS: hydroCHLOROthiazide 25 MG TAB PO SCH (08:35)
[2022-01-04] MEDS: CALCIUM CARBONATE 500 MG CHEWABLE PO SCH (08:35)
[2022-01-04] MEDS: DOCUSATE 100 MG CAP PO SCH (08:35)
[2022-01-04] MEDS: METOPROLOL TARTRATE 12.5 MG TAB PO SCH ×2 (08:35→20:25)
[2022-01-04] MEDS: GABAPENTIN 300 MG CAP PO SCH ×2 (08:35→20:25)
[2022-01-04] MEDS: ASPIRIN 325 MG TAB PO SCH (08:35)
[2022-01-04] MEDS: CHOLECALCIFEROL 25 MCG (1000 IU) TABLET PO SCH (08:36)
[2022-01-04] MEDS: LETROZOLE 2.5 MG TAB PO SCH (08:36)
[2022-01-04] MEDS: CLOPIDOGREL 75 MG TAB PO SCH (08:36)
[2022-01-04] MEDS ORDERED: FUROSEMIDE 20 MG TAB PO SCH (09:00)
--- NOTE | 2022-01-04 09:38 | P.GSCN ---
History of Present Illness Consult date: 01/04/22 Reason for Consult: Left thigh hematoma Requesting physician: Mckinley Stewart History of present illness: This is 66-year-old female with a past medical history of peripheral arterial disease, COPD, and former smoker of 44 years. Patient had a history of significant bilateral lower extremity peripheral arterial disease and underwent previous bilateral angioplasty of the common iliac and external iliac and common femoral arteries on 07/27/[address] Stewart. She had further follow-up and had a CT a that showed bilateral iliac stents with occluded left SFA. Yesterday she underwent left stenting of the common femoral artery and the left profunda with attempted balloon angioplasty. Right BELLMAKER angiogram and left tibial artery access. Apparently patient had significant swelling and hematoma in the left thigh. Significant pain. She had a drop in her hemoglobin from 12.3-6.0 status post procedure. She received 2 units of blood. Repeat hemoglobin today 10.0. She states pain in the right thigh has improved. Sheath was pulled this morning from the right groin. She is denying any chest pain, shortness of breath, abdominal pain, nausea or vomiting. States that she is unsure at 5 left lower extremity pain is improved. States most of her pain was with walking. CTA thoracic abdominal/pelvis aorta reports left groin hematoma, no evidence of aneurysm or pseudoaneurysm. Review of Systems A 14 point review systems was completed all pertinent positives and negatives as stated in the HPI. Past Medical History Past Medical History: Atrial Fibrillation, Cancer, COPD, GERD/Reflux, Hyperlipidemia, Pneumonia, Respiratory Disorder, Vascular Disorder Additional Past Medical History / Comment(s): , L upper lobe nodule being monitored, home oxygen at 2L/CONTINOUS, PVD, osteoporosis, constipation. LEFT BREAST CANCER, History of Any Multi-Drug Resistant Organisms: None Reported Past Surgical History: Breast Surgery, Cholecystectomy, Hysterectomy, Orthopedic Surgery Additional Past Surgical History / Comment(s): 07/29/21 L iliac percutaneous balloon angioplasty with stent/atherectomy/PTBA L femoral artery/DEALER CARD ROOM R femoral artery/R iliac stent, abdominal aortagram, bronchoscopies with biopsy, bilateral wrist carpal tunnel, TMJ surgery, left neck cyst removed, colonoscopy, left breast lumpectomy. Past Anesthesia/Blood Transfusion Reactions: Previous Problems w/ Anesthesia Additional Past Anesthesia/Blood Transfusion Reaction / Comm: SLOW TO WAKE UP. Smoking Status: Former smoker - Past Family History Father Family Medical History: Cancer Additional Family Medical History / Comment(s): LUNG CANCER. Mother Family Medical History: Cancer Additional Family Medical History / Comment(s): BREAST CANCER. Medications and Allergies Home Medications Medication Instructions Recorded Confirmed Type Hydroxychloroquine Sulfate 200 mg PO BID 03/29/15 01/02/22 History [Plaquenil] Fluticasone Propion/Salmeterol 1 puff INHALATION RT-BID 05/31/16 01/02/22 History [Advair 500-50 Diskus] Gabapentin [Neurontin] 300 mg PO BID 04/07/19 01/02/22 History Levalbuterol Hfa Inhaler [Xopenex 1 puff INHALATION RT-Q6H PRN 04/07/19 01/02/22 History Hfa Inhaler] Calcium Carbonate [Calcium] 1,200 mg PO DAILY 04/29/19 01/02/22 History Letrozole [Femara] 2.5 mg PO DAILY 10/23/19 01/02/22 History Albuterol Nebulized [Ventolin 2.5 mg INHALATION RT-QID PRN 11/04/20 01/03/22 History Nebulized] Docusate [Colace] 100 mg PO DAILY 01/09/21 01/02/22 History buPROPion HCL [Wellbutrin SR] 100 mg PO DAILY 01/09/21 01/02/22 History Atorvastatin [Lipitor] 80 mg PO HS #90 tab 07/29/21 01/02/22 Rx Clopidogrel [Plavix] 75 mg PO DAILY #90 tab 07/29/21 01/02/22 Rx ALPRAZolam [Xanax] 0.25 mg PO BID PRN 08/03/21 01/02/22 History Cholecalciferol [Vitamin D3 (25 50 mcg PO DAILY 08/03/21 01/02/22 History Mcg = 1000 Iu)] Tiotropium 2.5 Mcg/Puff [Spiriva 2 puff INHALATION RT-DAILY 08/03/21 01/03/22 History Respimat 2.5 Mcg] Metoprolol Tartrate [Lopressor] 12.5 mg PO BID 30 Days #60 tab 08/05/21 01/02/22 Rx Pantoprazole Sodium [Protonix] 40 mg PO BID #60 tab 08/07/21 01/02/22 Rx Furosemide [Lasix] 20 mg PO DAILY 11/30/21 01/02/22 History hydroCHLOROthiazide [Hydrodiuril] 25 mg PO DAILY 11/30/21 01/02/22 History Allergies Allergy/AdvReac Type Severity Reaction Status Date / Time banana Allergy Abdominal Verified 01/03/22 09:35 Pain budesonide [From Pulmicort] Allergy Dyspnea Verified 01/03/22 09:35 Iodinated Contrast Media Allergy Anaphylaxis Verified 01/03/22 09:35 [Iodinated Contrast Media - IV Dye] penicillin G Allergy Rash/Hives Verified 01/03/22 09:35 codeine AdvReac Nausea & Verified 01/03/22 09:35 Vomiting levofloxacin AdvReac joint pain Verified 01/03/22 09:35 verapamil AdvReac HEADACHE Verified 01/03/22 09:35 Surgical - Exam Vital Signs Temp Pulse Resp BP Pulse Ox 98 F 91 18 145/76 97 01/03/22 09:44 01/03/22 09:44 01/03/22 09:44 01/03/22 09:44 01/03/22 09:44 General appearance: The patient is alert, oriented, appears in no acute distress. HET: Head is normocephalic and atraumatic. Pupils are equal and reactive. Neck: Supple without lymphadenopathy. Trachea midline. No audible carotid bruit. Heart: S1 S2. Regular rate and rhythm. Lungs: Bilateral wheezing. Abdomen: Soft, nontender, nondistended. Extremities: Normal skin color and turgor. Left thigh swelling and hematoma. Palpable femoral pulses. Left lower extremity with positive PT signal, unable to obtain DP signal. Patient is able to move her left lower extremity and toes. Sheath was removed from the right groin, nurses at bedside holding pressure. Neurological: No focal deficits. Alert and oriented 3. Results - Labs 01/04/22 05:15 01/04/22 05:15 Abnormal Lab Results - Last 24 Hours (Table) 01/03/22 01/03/22 01/03/22 Range/Units 09:40 09:40 17:43 WBC 13.4 H (3.8-10.6) k/uL RBC 2.50 L (3.80-5.40) m/uL Hgb 6.8 L* D (11.4-16.0) gm/dL Hct 23.0 L (34.0-46.0) % MCHC 30.5 L 29.5 L (31.0-37.0) g/dL RDW 16.1 H 16.3 H (11.5-15.5) % Plt Count (150-450) k/uL Neutrophils # 8.4 H 11.5 H (1.3-7.7) k/uL Lymphocytes # 0.8 L 0.9 L (1.0-4.8) k/uL PT (9.0-12.0) sec INR (<1.2) Sodium (137-145) mmol/L Chloride (98-107) mmol/L BUN (7-17) mg/dL Creatinine 0.43 L (0.52-1.04) mg/dL Glucose 114 H (74-99) mg/dL POC Glucose (mg/dL) (70-110) mg/dL Calcium (8.4-10.2) mg/dL Total Protein (6.3-8.2) g/dL Albumin (3.5-5.0) g/dL Crossmatch 01/03/22 01/03/22 01/03/22 Range/Units 17:43 17:49 18:13 WBC (3.8-10.6) k/uL RBC (3.80-5.40) m/uL Hgb (11.4-16.0) gm/dL Hct (34.0-46.0) % MCHC (31.0-37.0) g/dL RDW (11.5-15.5) % Plt Count (150-450) k/uL Neutrophils # (1.3-7.7) k/uL Lymphocytes # (1.0-4.8) k/uL PT (9.0-12.0) sec INR (<1.2) Sodium (137-145) mmol/L Chloride 113 H (98-107) mmol/L BUN (7-17) mg/dL Creatinine 0.42 L (0.52-1.04) mg/dL Glucose 122 H (74-99) mg/dL POC Glucose (mg/dL) 139 H (70-110) mg/dL Calcium 6.2 L* (8.4-10.2) mg/dL Total Protein (6.3-8.2) g/dL Albumin (3.5-5.0) g/dL Crossmatch See Detail 01/03/22 01/03/22 01/03/22 Range/Units 18:30 20:29 20:30 WBC 12.4 H (3.8-10.6) k/uL RBC 2.15 L (3.80-5.40) m/uL Hgb 6.0 L* (11.4-16.0) gm/dL Hct 19.8 L* (34.0-46.0) % MCHC 30.1 L (31.0-37.0) g/dL RDW 16.3 H (11.5-15.5) % Plt Count (150-450) k/uL Neutrophils # 10.7 H (1.3-7.7) k/uL Lymphocytes # 0.8 L (1.0-4.8) k/uL PT (9.0-12.0) sec INR (<1.2) Sodium (137-145) mmol/L Chloride (98-107) mmol/L BUN (7-17) mg/dL Creatinine (0.52-1.04) mg/dL Glucose (74-99) mg/dL POC Glucose (mg/dL) 167 H (70-110) mg/dL Calcium (8.4-10.2) mg/dL Total Protein (6.3-8.2) g/dL Albumin (3.5-5.0) g/dL Crossmatch See Detail 01/03/22 01/03/22 01/03/22 Range/Units 20:33 20:33 20:33 WBC 20.4 H (3.8-10.6) k/uL RBC 2.53 L (3.80-5.40) m/uL Hgb 7.0 L (11.4-16.0) gm/dL Hct 23.3 L (34.0-46.0) % MCHC 30.3 L (31.0-37.0) g/dL RDW 16.4 H (11.5-15.5) % Plt Count (150-450) k/uL Neutrophils # (1.3-7.7) k/uL Lymphocytes # (1.0-4.8) k/uL PT 12.9 H (9.0-12.0) sec INR 1.2 H (<1.2) Sodium 136 L (137-145) mmol/L Chloride 111 H (98-107) mmol/L BUN (7-17) mg/dL Creatinine 0.46 L (0.52-1.04) mg/dL Glucose 149 H (74-99) mg/dL POC Glucose (mg/dL) (70-110) mg/dL Calcium 6.8 L (8.4-10.2) mg/dL Total Protein 4.2 L (6.3-8.2) g/dL Albumin 2.3 L (3.5-5.0) g/dL Crossmatch 01/04/22 01/04/22 01/04/22 Range/Units 02:36 05:15 05:15 WBC 16.9 H 15.2 H (3.8-10.6) k/uL RBC 3.40 L 3.32 L (3.80-5.40) m/uL Hgb 9.9 L D 10.0 L (11.4-16.0) gm/dL Hct 30.9 L 30.5 L (34.0-46.0) % MCHC (31.0-37.0) g/dL RDW (11.5-15.5) % Plt Count 132 L 140 L (150-450) k/uL Neutrophils # 15.6 H 14.1 H (1.3-7.7) k/uL Lymphocytes # 0.5 L 0.4 L (1.0-4.8) k/uL PT (9.0-12.0) sec INR (<1.2) Sodium (137-145) mmol/L Chloride 112 H (98-107) mmol/L BUN 18 H (7-17) mg/dL Creatinine 0.45 L (0.52-1.04) mg/dL Glucose 108 H (74-99) mg/dL POC Glucose (mg/dL) (70-110) mg/dL Calcium 6.6 L (8.4-10.2) mg/dL Total Protein (6.3-8.2) g/dL Albumin (3.5-5.0) g/dL Crossmatch Diabetes panel 01/03/22 01/03/22 01/03/22 Range/Units 09:40 17:43 20:33 Sodium 138 139 136 L (137-145) mmol/L Potassium 3.8 4.1 4.2 (3.5-5.1) mmol/L Chloride 103 113 H 111 H (98-107) mmol/L Carbon Dioxide 26 25 24 (22-30) mmol/L BUN 14 16 17 (7-17) mg/dL Creatinine 0.43 L 0.42 L 0.46 L (0.52-1.04) mg/dL Glucose 114 H 122 H 149 H (74-99) mg/dL Calcium 8.5 6.2 L* 6.8 L (8.4-10.2) mg/dL AST 19 (14-36) U/L ALT 15 (4-34) U/L Alkaline Phosphatase 49 (38-126) U/L Total Protein 4.2 L (6.3-8.2) g/dL Albumin 2.3 L (3.5-5.0) g/dL 01/04/22 Range/Units 05:15 Sodium 140 (137-145) mmol/L Potassium 3.9 (3.5-5.1) mmol/L Chloride 112 H (98-107) mmol/L Carbon Dioxide 26 (22-30) mmol/L BUN 18 H (7-17) mg/dL Creatinine 0.45 L (0.52-1.04) mg/dL Glucose 108 H (74-99) mg/dL Calcium 6.6 L (8.4-10.2) mg/dL AST (14-36) U/L ALT (4-34) U/L Alkaline Phosphatase (38-126) U/L Total Protein (6.3-8.2) g/dL Albumin (3.5-5.0) g/dL Calcium panel 01/03/22 01/03/22 01/03/22 Range/Units 09:40 17:43 20:33 Calcium 8.5 6.2 L* 6.8 L (8.4-10.2) mg/dL Albumin 2.3 L (3.5-5.0) g/dL 01/04/22 Range/Units 05:15 Calcium 6.6 L (8.4-10.2) mg/dL Albumin (3.5-5.0) g/dL Pituitary panel 01/03/22 01/03/22 01/03/22 Range/Units 09:40 17:43 20:33 Sodium 138 139 136 L (137-145) mmol/L Potassium 3.8 4.1 4.2 (3.5-5.1) mmol/L Chloride 103 113 H 111 H (98-107) mmol/L Carbon Dioxide 26 25 24 (22-30) mmol/L BUN 14 16 17 (7-17) mg/dL Creatinine 0.43 L 0.42 L 0.46 L (0.52-1.04) mg/dL Glucose 114 H 122 H 149 H (74-99) mg/dL Calcium 8.5 6.2 L* 6.8 L (8.4-10.2) mg/dL 01/04/22 Range/Units 05:15 Sodium 140 (137-145) mmol/L Potassium 3.9 (3.5-5.1) mmol/L Chloride 112 H (98-107) mmol/L Carbon Dioxide 26 (22-30) mmol/L BUN 18 H (7-17) mg/dL Creatinine 0.45 L (0.52-1.04) mg/dL Glucose 108 H (74-99) mg/dL Calcium 6.6 L (8.4-10.2) mg/dL Adrenal panel 01/03/22 01/03/22 01/03/22 Range/Units 09:40 17:43 20:33 Sodium 138 139 136 L (137-145) mmol/L Potassium 3.8 4.1 4.2 (3.5-5.1) mmol/L Chloride 103 113 H 111 H (98-107) mmol/L Carbon Dioxide 26 25 24 (22-30) mmol/L BUN 14 16 17 (7-17) mg/dL Creatinine 0.43 L 0.42 L 0.46 L (0.52-1.04) mg/dL Glucose 114 H 122 H 149 H (74-99) mg/dL Calcium 8.5 6.2 L* 6.8 L (8.4-10.2) mg/dL Total Bilirubin 0.2 (0.2-1.3) mg/dL AST 19 (14-36) U/L ALT 15 (4-34) U/L Alkaline Phosphatase 49 (38-126) U/L Total Protein 4.2 L (6.3-8.2) g/dL Albumin 2.3 L (3.5-5.0) g/dL 01/04/22 Range/Units 05:15 Sodium 140 (137-145) mmol/L Potassium 3.9 (3.5-5.1) mmol/L Chloride 112 H (98-107) mmol/L Carbon Dioxide 26 (22-30) mmol/L BUN 18 H (7-17) mg/dL Creatinine 0.45 L (0.52-1.04) mg/dL Glucose 108 H (74-99) mg/dL Calcium 6.6 L (8.4-10.2) mg/dL Total Bilirubin (0.2-1.3) mg/dL AST (14-36) U/L ALT (4-34) U/L Alkaline Phosphatase (38-126) U/L Total Protein (6.3-8.2) g/dL Albumin (3.5-5.0) g/dL - Imaging Comments: CT angiogram thoracic/abdominal pelvis aorta: Left-sided groin hematoma. No evidence of aneurysm or pseudoaneurysm. No contrast extravasation. No evidence of active bleeding. No evidence of hemodynamic stenosis. Arthrosclerotic vascular disease. Bilateral pleural effusion with basilar pulmonary infiltrates. This could be some chronic congestive heart failure. Left upper lobe pneumonia. Assessment and Plan Assessment: 1. Left groin/thigh hematoma 2. Postop day #1 for left stenting of the BELLMAKER and left profunda with attempted balloon angioplasty 3. Peripheral arterial disease 4. Former smoker, 44 years Plan: 1. Continue ICU/medical management 2. Continue to monitor left groin for hematoma/bleeding 3. Daily CBC 4. There is no indication at this time for any vascular surgical intervention. Thank you for this consultation. We will sign off at this time. Please do not hesitate to return to us if any further needs. The impression and plan of care has been dictated as directed. Dr. Dacosta I performed a history and examination of this patient, discussed the same with the dictator. I agree with the dictator's note ,documented as a scribe. Any additional findings or plans will be noted.
[2022-01-04 10:27] VITALS: BMI 21.6
[2022-01-04] MEDS: LACTATED RINGERS 1,000 ML IV SCH (11:14)
--- NOTE | 2022-01-04 14:55 | PN ---
PROGRESS NOTE HISTORY: This 66-year-old woman, who was admitted after stenting of the left common femoral artery and profunda and attempted balloon angioplasty, has anemia. The patient is complaining of weakness of the left leg also left thigh also. The patient had received transfusions. PAST MEDICAL HISTORY: Reviewed. REVIEW OF SYSTEMS: A 14-point review is negative as mentioned earlier. HOME MEDICATIONS: Reviewed and include aspirin, dose and rest of medications noted. PHYSICAL EXAMINATION: VITAL SIGNS: Pulse is 74, blood pressure ntdrespirations 20. HEENT: Conjunctivae normal. NECK: No jugular venous distention. ABDOMEN: Soft. LEGS: Left leg has some pain and significant swelling also present. LABS: WBC 15.9. Other labs are noted. ASSESSMENT: 1. Status post stenting of the left common femoral artery and left profunda. 2. Postoperative hematoma. 3. Anemia _transfusion. 4. Chronic obstructive pulmonary disease. 5. Adrenal insufficiency. 6. Multiple medical issues. RECOMMENDATIONS: Recommend to continue current medications, symptomatic treatment. Otherwise, closely follow with Critical Care. Closely monitor. Further recommendation to follow. MMODL / IJN: [id number] / KUSHAL
[2022-01-04] MEDS: NOREPINEPHRINE 4 MG in SODIUM CHLORIDE 0.9% 250 ML IV SCH (15:46)
[2022-01-04] MEDS: ALPRAZolam 0.25 MG TAB PO PRN (17:37)
[2022-01-04] MEDS: ATORVASTATIN 80 MG TAB PO SCH (20:25)
[2022-01-05] MEDS: HYDROCORTISONE SUCCINATE 100 MG/2 ML VIAL IV SCH ×2 (00:55→05:08)
[2022-01-05] MEDS: LACTATED RINGERS 1,000 ML IV SCH (00:56)
--- NOTE | 2022-01-05 07:50 | P.PN ---
Subjective Progress Note Date: 01/05/22 Principal diagnosis: Lower extremities peripheral arterial disease The patient is a very pleasant 66-year-old female patient was advanced chronic hypoxic respiratory failure/chronic obstructive pulmonary disease as well as significant history of smoking before and also lower extremities peripheral arterial disease. She underwent in the past stenting of the right and left comm on iliac arteries. She is known to have occluded left SFA. The left SFA occlusion was treated medically for low thigh the recently where she started experiencing resting pain in the left foot. For that reason I did perform a CTA. The CTA confirmed the occlusion of the left SFA on long segment extending from the ostium all the way to the popliteal with patent femoral artery bilaterally and patent bilateral iliac stents. She was brought yesterday to the hospital to undergo a B2B SALES PROFESSION[employer] of the left SFA. Crossing the SFA was extremely challenging. By that and I was able to cross from down in retrograde fashion. I advanced my catheter over the wire and subsequently an angiogram was performed and revealed it seems to be possible dissection involving the common femoral and profunda. I did bail out stenting of both the common femoral as well as profunda. With a good angiographic results and without any complication. Subsequently postprocedure the patient was hypotensive and she was brought to the intensive care unit. She was looking pale. There was a concern about hematoma involving the left thigh where the stent was placed. For that reason computed tomography scan with contrast was performed and showed about 6 cm hematoma involving the left femoral artery. No active bleeding was noticed. The patient was treated with supportive measurement including IV fluid as well as she received 2 units of packed RBC. The patient was seen this morning. She remains hemodynamically stable and not on any vasopressors so far. Her hemoglobin this morning is above 10. Overall she is doing better. She continues to have left leg weakness which part of it is related to the bleeding in the left thigh. She is able to move her toes. From the cardiac standpoint of view, the patient can be transferred to the 3 S. Also will get a physical therapy consult on the patient. Meanwhile I'm going to increase 6 from 20 mg daily to 40 mg daily because of the LAD mattress bilateral lower extremities. Also continue dual antiplatelet therapy along with high intensity statin. Consider oral anticoagulation down the line. Objective - Vital Signs Vital signs: Vital Signs Temp 98.4 F 01/05/22 04:00 Pulse 74 01/05/22 07:00 Resp 18 01/05/22 07:00 BP 110/57 01/05/22 07:00 Pulse Ox 97 01/05/22 07:00 FiO2 Intake & Output 01/04/22 01/05/22 01/05/22 18:59 06:59 18:59 Intake Total 779 120 110 Output Total 1030 535 35 Balance -251 -415 75 Weight 55.3 kg 57.5 kg Intake: IV 769 120 10 Flush for Arterial Line 9 Lactated Ringers @ 75ml/ 760 120 10 hr Oral 100 Lipid 10 Lactated Ringers @ 75ml/ 10 hr Output: Urine 1030 535 35 Other: Voiding Method Indwelling Catheter Indwelling Catheter ABP, PAP, CO, CI - Last Documented Arterial Blood Pressure 131/56 - Constitutional General appearance: Present: no acute distress - Respiratory Respiratory: bilateral: diminished - Cardiovascular Rhythm: regular Heart sounds: normal: S1, S2 - Labs CBC & Chem 7: 01/04/22 05:15 01/04/22 05:15 Assessment and Plan Assessment: Assessment #1 critical limb ischemia of the left leg #2 status post a stenting of the left common and left profunda #3 left thigh hematoma #4 blood loss anemia #5 severe COPD #6 multiple comorbid conditions Plan #1 continue monitor the kidney function and electrolytes and hemoglobin #2 increase the dose of Lasix #3 continue dual antiplatelet therapy and high intensity statin #4 transfer the patient to [facility]. #5 consult physical therapy
[2022-01-05] MEDS: IPRATROPIUM 0.5 MG/2.5 ML NEBU INHALATION SCH ×4 (08:18→19:51)
[2022-01-05] MEDS: NON FORMULARY DRUG (Fluticasone Propion/Salmeterol [Advair 500-50 Diskus] 1 EACH Blst.W.De INHALATION SCH ×2 (08:19→19:51)
[2022-01-05] MEDS: FUROSEMIDE 40 MG TAB PO SCH (08:38)
[2022-01-05] MEDS: METOPROLOL TARTRATE 12.5 MG TAB PO SCH ×2 (08:38→20:05)
[2022-01-05] MEDS: PANTOPRAZOLE 40 MG TABLET PO SCH ×2 (08:38→18:10)
[2022-01-05] MEDS: GABAPENTIN 300 MG CAP PO SCH ×2 (08:38→20:05)
[2022-01-05] MEDS: ASPIRIN 325 MG TAB PO SCH (08:38)
[2022-01-05] MEDS: CLOPIDOGREL 75 MG TAB PO SCH (08:38)
[2022-01-05] MEDS: DOCUSATE 100 MG CAP PO SCH (08:38)
[2022-01-05] MEDS: CHOLECALCIFEROL 25 MCG (1000 IU) TABLET PO SCH (08:38)
[2022-01-05] MEDS: CALCIUM CARBONATE 500 MG CHEWABLE PO SCH (08:38)
[2022-01-05] MEDS: buPROPion SR 100 MG TABLET.ER PO SCH (08:39)
[2022-01-05] MEDS: LETROZOLE 2.5 MG TAB PO SCH (08:39)
[2022-01-05] MEDS: hydroCHLOROthiazide 25 MG TAB PO SCH (08:39)
[2022-01-05] MEDS: HYDROXYCHLOROQUINE SULFATE 200 MG TAB PO SCH ×2 (08:39→20:05)
--- NOTE | 2022-01-05 09:35 | P.PN ---
Subjective Progress Note Date: 01/05/22 Principal diagnosis: Status post stent placement. Pulmonary/critical care consult, dated 01/04/2022. 66-year-old female with history of endstage/severe COPD. The patient is postop day #1, stenting of the left common femoral artery and left profunda, attempted balloon angioplasty of the left SFA and left popliteal, left lower extremity angiogram, right common femoral artery angiogram, and ultrasound-guided access of the left posterior tibial artery. The patient developed a significant hematoma in the left thigh area, which this morning is significantly improved. I did speak to the water treatment technician last night, because the patient was receiving a blood transfusion that was stopped, because of a possible transfusion reaction. We ended up resuming the blood transfusion, after we kassi a stat cortisol level, gave the patient hydrocortisone 100 mg IV push, and then started the patient on hydrocortisone 50 mg every 6 hours. Today she is looking much better, with stable vital signs. She's on 2 L nasal cannula. She's getting lactated Ringer's at 75 mL an hour. Her hemoglobin this morning is 10. White count 15.2, hemoglobin 10, hematocrit 30.5, platelet count 240,000. Sodium 140, potassium 3.9, chlorides 112, CO2 26 BUN 18 with a creatinine 0.45. Calcium 6.6. Cortisol level was 24. A chest x-ray done yesterday shows some left lower lobe infiltrates. Progress note dated 01/05/2022. The patient is again seen today in room 255. She was seen in consultation yesterday. The patient is doing much better. She is on 2 L nasal cannula. Lactated Ringer's is running at 10 mL an hour. Her hemoglobin today is pending. Her hemoglobin yesterday was 10. The patient could be discharged to 3 S. floor. I've asked the nurses to discontinue the IV. Labs today are currently pending. No chest x-ray today. Objective - Vital Signs Vital signs: Vital Signs Temp 98.1 F 01/05/22 08:00 Pulse 73 01/05/22 08:20 Resp 34 H 01/05/22 08:00 BP 133/61 01/05/22 08:00 Pulse Ox 96 01/05/22 08:20 FiO2 Intake & Output 01/04/22 01/05/22 01/05/22 18:59 06:59 18:59 Intake Total 779 120 220 Output Total 1030 535 70 Balance -251 -415 150 Weight 55.3 kg 57.5 kg Intake: IV 769 120 20 Flush for Arterial Line 9 Lactated Ringers @ 75ml/ 760 120 20 hr Oral 200 Lipid 10 Lactated Ringers @ 75ml/ 10 hr Output: Urine 1030 535 70 Other: Voiding Method Indwelling Catheter Indwelling Catheter Indwelling Catheter ABP, PAP, CO, CI - Last Documented Arterial Blood Pressure 131/56 - Exam No acute distress, oriented 3. Awake and alert, oriented, on 2 L nasal cannula. HEENT examination is grossly unremarkable. Neck supple. Full range of motion. No adenopathy thyromegaly or neck vein distention. Cardiovascular examination reveals regular rhythm rate. S1-S2 normal. No S3 or S4. No discernible murmur noted. Heart rate 73 bpm. Lungs reveal mostly clear breath sounds. Mild scattered rhonchi noted. Minimal wheeze noted. No crackles. Breath sounds equal bilaterally. 2 L saturation 96 %. Abdomen soft bowel sounds are heard. No masses or tenderness. Extremities are intact. Swelling/hematoma of the left thigh noted. Skin is without rash or lesion. Neurologic examination is brief but nonfocal. - Labs CBC & Chem 7: 01/04/22 05:15 01/04/22 05:15 Assessment and Plan Assessment: Postop day 2, stenting of the left common femoral artery and left profunda, attempted balloon angioplasty of the SFA and left popliteal, left lower extremity angiogram, right common femoral artery angiogram, and ultrasound- guided access of the left posterior tibial artery. Postprocedure left groin/left thigh hematoma. Postprocedure anemia, S/P 2 units of PRBCs. Severe end-stage COPD, with chronic hypoxemic respiratory failure, status post [place] valve placement, [facility]. Possible adrenal insufficiency. Gastroesophageal reflux disease. Hyperlipidemia. Peripheral vascular occlusive disease. Plan: Plan dated 01/04/2022. The patient had a stat cortisol level drawn last night. I gave the patient 100 mg of hydrocortisone IV push, followed by 50 mg hydrocortisone, IV push, every 6 hours. The patient did very well afterwards. The blood transfusion was restarted. The patient's hemoglobin this morning is 10. Vital signs are stable. Respiratory status is stable. I did speak to the water treatment technician. She'll remain in the intensive care unit for now. Additional recommendations and suggestions are forthcoming. I will likely send her home on prednisone 20 mg a day. Plan dated 01/05/2022. The patient's doing much better. The patient can be transferred out to the 3 S. floor. Hemoglobin today is currently pending. From yesterday, it was 10. Labs, x-rays, and medications are reviewed. Hydrocortisone is discontinued. The patient is given prednisone 20 mg a day. Additional recommendations and suggestions are forthcoming. We will continue to follow the patient and make recommendations along the way. Time with Patient: Less than 30
[2022-01-05 10:15] LABS: HCT 26.6 % (34.0-46.0); HGB 8.7 gm/dL (11.4-16.0); Hypochromasia Slight; MCH 29.2 pg (25.0-35.0); MCHC 32.5 g/dL (31.0-37.0); MCV 89.9 fL (80.0-100.0); Mean Platelet Volume 7.9; Platelet Count 113 k/uL (150-450); RBC 2.96 m/uL (3.80-5.40); RDW 15.4 % (11.5-15.5); WBC 9.7 k/uL (3.8-10.6)
[2022-01-05] MEDS: ATORVASTATIN 80 MG TAB PO SCH (20:05)
[2022-01-05] MEDS: ALPRAZolam 0.25 MG TAB PO PRN (20:08)
--- NOTE | 2022-01-06 03:00 | PN ---
PROGRESS NOTE HISTORY: This 66-year-old woman was admitted after stenting of the left common femoral artery and left profunda, had a hematoma. The patient is complaining of some pain and swelling of the left leg. No chest pain. No palpitation. PHYSICAL EXAMINATION: VITAL SIGNS: Pulse is 80, blood pressure 106/ , respirations 20. HEENT: Conjunctivae normal. NECK: No jugular venous distention. CARDIOVASCULAR: S1, S2 . RESPIRATION: . ABDOMEN: Soft. LEGS: Significant edema on the left leg. LABS: Reviewed. Hemoglobin is 8.7. ASSESSMENT: 1. Status post stenting of the left common femoral artery and left profunda. 2. Postoperative hematoma. 3. Anemia, status post transfusion. 4. Chronic obstructive pulmonary disease. 5. Multiple medical issues including adrenal insufficiency. RECOMMENDATION AND DISCUSSION: This is a 66-year-old woman who presented with multiple complex medical issues. At this time, I recommend to continue the current treatment. Closely follow with Cardiology. Otherwise, continue to monitor. Repeat labs in the morning and further recommendations to follow. MMODL / IJN: [id number] /
[2022-01-06] MEDS: PANTOPRAZOLE 40 MG TABLET PO SCH (06:31)
[2022-01-06 07:12] LABS: Basophils % (A) 0 %; Eosinophils # (A) 0.2 k/uL (0-0.7); Eosinophils % (A) 2 %; HCT 26.3 % (34.0-46.0); HGB 8.6 gm/dL (11.4-16.0); Hypochromasia Slight; Lymphocytes % (A) 15 %; MCH 29.7 pg (25.0-35.0); MCHC 32.6 g/dL (31.0-37.0); MCV 91.2 fL (80.0-100.0); Monocytes # (A) 0.5 k/uL (0-1.0); Monocytes % (A) 7 %; Neutrophils % (A) 74 %; Platelet Count 107 k/uL (150-450); RBC 2.89 m/uL (3.80-5.40); RDW 15.5 % (11.5-15.5); WBC 6.8 k/uL (3.8-10.6)
[2022-01-06 07:20] LABS: ALT 19 U/L (4-34); AST 23 U/L (14-36); African American GFR (CKD) >90 (>60 ml/min/1.73 sqM); Albumin 2.5 g/dL (3.5-5.0); Alkaline Phosphatase 48 U/L (38-126); Blood Urea Nitrogen 16 mg/dL (7-17); Calcium 7.2 mg/dL (8.4-10.2); Chloride 101 mmol/L (98-107); Glucose 83 mg/dL (74-99); Non-African American GFR(CKD) >90 (>60 ml/min/1.73 sqM); Sodium 139 mmol/L (137-145); Total Bilirubin 0.5 mg/dL (0.2-1.3); Total Protein 4.2 g/dL (6.3-8.2)
[2022-01-06 07:30] LABS: Anion Gap -1 mmol/L
--- NOTE | 2022-01-06 07:32 | P.PN ---
Subjective Progress Note Date: 01/06/22 Principal diagnosis: Lower extremities peripheral arterial disease The patient is a very pleasant 66-year-old female patient was advanced chronic hypoxic respiratory failure/chronic obstructive pulmonary disease as well as significant history of smoking before and also lower extremities peripheral arterial disease. She underwent in the past stenting of the right and left comm on iliac arteries. She is known to have occluded left SFA. The left SFA occlusion was treated medically for low thigh the recently where she started experiencing resting pain in the left foot. For that reason I did perform a CTA. The CTA confirmed the occlusion of the left SFA on long segment extending from the ostium all the way to the popliteal with patent femoral artery bilaterally and patent bilateral iliac stents. She was brought yesterday to the hospital to undergo a PURCHASING CLERK of the left SFA. Crossing the SFA was extremely challenging. By that and I was able to cross from down in retrograde fashion. I advanced my catheter over the wire and subsequently an angiogram was performed and revealed it seems to be possible dissection involving the common femoral and profunda. I did bail out stenting of both the common femoral as well as profunda. With a good angiographic results and without any complication. Subsequently postprocedure the patient was hypotensive and she was brought to the intensive care unit. She was looking pale. There was a concern about hematoma involving the left thigh where the stent was placed. For that reason computed tomography scan with contrast was performed and showed about 6 cm hematoma involving the left femoral artery. No active bleeding was noticed. The patient was treated with supportive measurement including IV fluid as well as she received 2 units of packed RBC. The patient was seen this morning beach she is asymptomatic. She is h emodynamically stable. Her left leg weakness has improved significantly. Physical therapy was placed to see the patient unfortunately the patient was not seen. I'm going to get the patient up and around to be discharged later on today. Currently she is on dual antiplatelet therapy and high intensity statin. Objective - Vital Signs Vital signs: Vital Signs Temp 97.9 F 01/06/22 04:00 Pulse 62 01/06/22 04:00 Resp 18 01/06/22 04:00 BP 110/52 01/06/22 04:00 Pulse Ox 98 01/06/22 04:00 FiO2 2 01/06/22 00:00 Intake & Output 01/05/22 01/06/22 01/06/22 18:59 06:59 18:59 Intake Total 660 Output Total 1485 300 Balance -825 -300 Intake: IV 20 Lactated Ringers @ 75ml/ 20 hr Oral 640 Output: Urine 1485 300 Other: Voiding Method Indwelling Catheter Indwelling Catheter ABP, PAP, CO, CI - Last Documented Arterial Blood Pressure 131/56 - Constitutional General appearance: Present: no acute distress - Respiratory Respiratory: bilateral: diminished - Cardiovascular Rhythm: regular Heart sounds: normal: S1, S2 - Labs CBC & Chem 7: 01/06/22 06:40 01/04/22 05:15 Labs: Abnormal Lab Results - Last 24 Hours (Table) 01/05/22 01/06/22 Range/Units 09:30 06:40 RBC 2.96 L 2.89 L (3.80-5.40) m/uL Hgb 8.7 L 8.6 L (11.4-16.0) gm/dL Hct 26.6 L 26.3 L (34.0-46.0) % Plt Count 113 L 107 L (150-450) k/uL Assessment and Plan Assessment: Assessment #1 critical limb ischemia of the left leg #2 status post a stenting of the left common and left profunda #3 left thigh hematoma #4 blood loss anemia #5 severe COPD #6 multiple comorbid conditions Plan #1 continue dual antiplatelet therapy and high intensity statin #2 potential discharge in the next 12-24 hours
[2022-01-06 07:34] LABS: Carbon Dioxide 39 mmol/L (22-30)
[2022-01-06 08:21] VITALS: RESP 20
[2022-01-06] MEDS: NON FORMULARY DRUG (Fluticasone Propion/Salmeterol [Advair 500-50 Diskus] 1 EACH Blst.W.De INHALATION SCH (08:37)
[2022-01-06] MEDS: IPRATROPIUM 0.5 MG/2.5 ML NEBU INHALATION SCH (08:37)
[2022-01-06] MEDS ORDERED: predniSONE 20 MG TAB PO SCH (09:00)
[2022-01-06] MEDS ORDERED: Potassium Replacement Protocol 1 EACH MISC MISCELLANE PRN (09:04)
[2022-01-06] MEDS: POTASSIUM CHLORIDE ER 20 MEQ TAB.ER PO SCH ×2 (09:17→11:10)
[2022-01-06] MEDS: METOPROLOL TARTRATE 12.5 MG TAB PO SCH (09:17)
[2022-01-06] MEDS: CHOLECALCIFEROL 25 MCG (1000 IU) TABLET PO SCH (09:17)
[2022-01-06] MEDS: ASPIRIN 325 MG TAB PO SCH (09:17)
[2022-01-06] MEDS: FUROSEMIDE 40 MG TAB PO SCH (09:17)
[2022-01-06] MEDS: hydroCHLOROthiazide 25 MG TAB PO SCH (09:17)
[2022-01-06] MEDS: DOCUSATE 100 MG CAP PO SCH (09:17)
[2022-01-06] MEDS: CLOPIDOGREL 75 MG TAB PO SCH (09:17)
[2022-01-06] MEDS: LETROZOLE 2.5 MG TAB PO SCH (09:18)
[2022-01-06] MEDS: CALCIUM CARBONATE 500 MG CHEWABLE PO SCH (09:18)
[2022-01-06] MEDS: HYDROXYCHLOROQUINE SULFATE 200 MG TAB PO SCH (09:18)
[2022-01-06] MEDS: buPROPion SR 100 MG TABLET.ER PO SCH (09:18)
[2022-01-06] MEDS: GABAPENTIN 300 MG CAP PO SCH (09:18)
--- NOTE | 2022-01-06 09:31 | P.PN ---
Subjective Progress Note Date: 01/06/22 Principal diagnosis: Status post stent placement. Pulmonary/critical care consult, dated 01/04/2022. 66-year-old female with history of endstage/severe COPD. The patient is postop day #1, stenting of the left common femoral artery and left profunda, attempted balloon angioplasty of the left SFA and left popliteal, left lower extremity angiogram, right common femoral artery angiogram, and ultrasound-guided access of the left posterior tibial artery. The patient developed a significant hematoma in the left thigh area, which this morning is significantly improved. I did speak to the hospital mortician last night, because the patient was receiving a blood transfusion that was stopped, because of a possible transfusion reaction. We ended up resuming the blood transfusion, after we kassi a stat cortisol level, gave the patient hydrocortisone 100 mg IV push, and then started the patient on hydrocortisone 50 mg every 6 hours. Today she is looking much better, with stable vital signs. She's on 2 L nasal cannula. She's getting lactated Ringer's at 75 mL an hour. Her hemoglobin this morning is 10. White count 15.2, hemoglobin 10, hematocrit 30.5, platelet count 240,000. Sodium 140, potassium 3.9, chlorides 112, CO2 26 BUN 18 with a creatinine 0.45. Calcium 6.6. Cortisol level was 24. A chest x-ray done yesterday shows some left lower lobe infiltrates. Progress note dated 01/05/2022. The patient is again seen today in room 255. She was seen in consultation yesterday. The patient is doing much better. She is on 2 L nasal cannula. Lactated Ringer's is running at 10 mL an hour. Her hemoglobin today is pending. Her hemoglobin yesterday was 10. The patient could be discharged to 3 S. floor. I've asked the nurses to discontinue the IV. Labs today are currently pending. No chest x-ray today. Progress note dated 01/06/2022. The patient is again seen today in room 255. She is on 2 L nasal cannula. She's not getting any IV fluids. According to her hospital mortician, she could be discharged home she denies any shortness of breath, chest discomfort, cough, wheezing, or phlegm production. The left thigh area still swollen, but is improved. Since she has been here, she's received a total of 3 units of blood. Labs from today include a white count of 6.8, hemoglobin 8.6, hematocrit 26.3, and a platelet count of 107,000. Sodium 139, potassium 3, chlorides 101, CO2 39, BUN 16, creatinine 0.46. Objective - Vital Signs Vital signs: Vital Signs Temp 97.8 F 01/06/22 09:06 Pulse 73 01/06/22 09:06 Resp 20 01/06/22 09:06 BP 101/58 01/06/22 09:06 Pulse Ox 98 01/06/22 09:06 FiO2 2 01/06/22 00:00 Intake & Output 01/05/22 01/06/22 01/06/22 18:59 06:59 18:59 Intake Total 660 Output Total 1485 300 Balance -825 -300 Intake: IV 20 Lactated Ringers @ 75ml/ 20 hr Oral 640 Output: Urine 1485 300 Other: Voiding Method Indwelling Catheter Indwelling Catheter Indwelling Catheter ABP, PAP, CO, CI - Last Documented Arterial Blood Pressure 131/56 - Exam No acute distress, oriented 3. Awake and alert, oriented, on 2 L nasal cannula. HEENT examination is grossly unremarkable. Neck supple. Full range of motion. No adenopathy thyromegaly or neck vein distention. Cardiovascular examination reveals regular rhythm rate. S1-S2 normal. No S3 or S4. No discernible murmur noted. Heart rate 77 bpm. Lungs reveal mostly clear breath sounds. Mild scattered rhonchi noted. Minimal wheeze noted. No crackles. Breath sounds equal bilaterally. 2 L saturation 98 %. Abdomen soft bowel sounds are heard. No masses or tenderness. Extremities are intact. Swelling/hematoma of the left thigh noted. Skin is without rash or lesion. Neurologic examination is brief but nonfocal. - Labs CBC & Chem 7: 01/06/22 06:40 01/06/22 06:40 Labs: Abnormal Lab Results - Last 24 Hours (Table) 01/05/22 01/06/22 01/06/22 Range/Units 09:30 06:40 06:40 RBC 2.96 L 2.89 L (3.80-5.40) m/uL Hgb 8.7 L 8.6 L (11.4-16.0) gm/dL Hct 26.6 L 26.3 L (34.0-46.0) % Plt Count 113 L 107 L (150-450) k/uL Potassium 3.0 L (3.5-5.1) mmol/L Carbon Dioxide 39 H (22-30) mmol/L Creatinine 0.46 L (0.52-1.04) mg/dL Calcium 7.2 L (8.4-10.2) mg/dL Total Protein 4.2 L (6.3-8.2) g/dL Albumin 2.5 L (3.5-5.0) g/dL Assessment and Plan Assessment: Postop day 3, stenting of the left common femoral artery and left profunda, attempted balloon angioplasty of the SFA and left popliteal, left lower extremity angiogram, right common femoral artery angiogram, and ultrasound- guided access of the left posterior tibial artery. Postprocedure left groin/left thigh hematoma. Postprocedure anemia, S/P 3 units of PRBCs. Severe end-stage COPD, with chronic hypoxemic respiratory failure, status post [place] valve placement, [facility]. Possible adrenal insufficiency. Gastroesophageal reflux disease. Hyperlipidemia. Peripheral vascular occlusive disease. Plan: Plan dated 01/04/2022. The patient had a stat cortisol level drawn last night. I gave the patient 100 mg of hydrocortisone IV push, followed by 50 mg hydrocortisone, IV push, every 6 hours. The patient did very well afterwards. The blood transfusion was restarted. The patient's hemoglobin this morning is 10. Vital signs are stable. Respiratory status is stable. I did speak to the hospital mortician. She'll remain in the intensive care unit for now. Additional recommendations and suggestions are forthcoming. I will likely send her home on prednisone 20 mg a day. Plan dated 01/05/2022. The patient's doing much better. The patient can be transferred out to the 3 S. floor. Hemoglobin today is currently pending. From yesterday, it was 10. La bs, x-rays, and medications are reviewed. Hydrocortisone is discontinued. The patient is given prednisone 20 mg a day. Additional recommendations and suggestions are forthcoming. We will continue to follow the patient and make recommendations along the way. Plan dated 01/06/2022. The patient's doing much better today. She remains on 2 L nasal cannula. This is her home oxygen dose. She's not receiving any IV fluids. We've converted her hydrocortisone to prednisone 20 mg a day. I told her and about for 5 days, she can reduce it down to 10 mg a day, which is her normal usual home dose. She will call the office for an appointment. Labs, x-rays, and medications reviewed. She is very stable. Her hemoglobin is stable. Prognosis is guarded. We will continue to follow her and make recommendations along the way. Time with Patient: Less than 30
[2022-01-06 11:12] VITALS: BP 99/61; TEMP 97.9
[2022-01-06 11:31] VITALS: PULSE 74
[2022-01-06] MEDS ORDERED: IPRATROPIUM-ALBUTEROL 3 ML NEB INHALATION SCH (12:00)
== END 2022-01-06 13:52 | disposition home or self-care (01) | DRG 252 ==
LOC: CATHCVL 09:17 → 3SCARD 16:05 → 2SICU 17:41 → CATHCVL 01-04 08:00 → 2SICU 01-04 08:00 → 3SCARD 01-06 08:44
PROVIDERS: ADMIT Internal Medicine Interventional Cardiology; ATTEND Internal Medicine Interventional Cardiology
PROC: 047 Lower Arteries, Dilation (ICD-10-PCS; 2022-01-03)
PROC: 047N3Z1 Dilation of Left Popliteal Artery using Drug-Coated Balloon, Percutaneous Approach (ICD-10-PCS; 2022-01-03)
PROC: B41F1ZZ Fluoroscopy of Right Lower Extremity Arteries using Low Osmolar Contrast (ICD-10-PCS; 2022-01-03)
PROC: 30233N1 Transfusion of Nonautologous Red Blood Cells into Peripheral Vein, Percutaneous Approach (ICD-10-PCS; 2022-01-03)
PROC: 047L34Z Dilation of Left Femoral Artery with Drug-eluting Intraluminal Device, Percutaneous Approach (ICD-10-PCS; principal; 2022-01-03 11:30)
DX: I70.222 Atherosclerosis of native arteries of extremities with rest pain, left leg (principal); I77.77 Dissection of artery of lower extremity; D62 Acute posthemorrhagic anemia; J96.11 Chronic respiratory failure with hypoxia; E27.40 Unspecified adrenocortical insufficiency; I97.638 Postprocedural hematoma of a circulatory system organ or structure following other circulatory system procedure; J44.9 Chronic obstructive pulmonary disease, unspecified; I10 Essential (primary) hypertension; I95.9 Hypotension, unspecified; E78.5 Hyperlipidemia, unspecified; M81.0 Age-related osteoporosis without current pathological fracture; K21.9 Gastro-esophageal reflux disease without esophagitis; R68.0 Hypothermia, not associated with low environmental temperature; Y83.8 Other surgical procedures as the cause of abnormal reaction of the patient, or of later complication, without mention of misadventure at the time of the procedure; I48.91 Unspecified atrial fibrillation; Z95.820 Peripheral vascular angioplasty status with implants and grafts; Z95.2 Presence of prosthetic heart valve; Z87.891 Personal history of nicotine dependence; Z85.3 Personal history of malignant neoplasm of breast; Z79.891 Long term (current) use of opiate analgesic; Z79.811 Long term (current) use of aromatase inhibitors; Z79.02 Long term (current) use of antithrombotics/antiplatelets; Z91.018 Allergy to other foods; Z88.1 Allergy status to other antibiotic agents; Z88.0 Allergy status to penicillin; Z87.01 Personal history of pneumonia (recurrent); Z88.8 Allergy status to other drugs, medicaments and biological substances; Z90.49 Acquired absence of other specified parts of digestive tract; Z90.710 Acquired absence of both cervix and uterus; Z98.890 Other specified postprocedural states; Z79.899 Other long term (current) drug therapy; Z80.3 Family history of malignant neoplasm of breast; Z80.1 Family history of malignant neoplasm of trachea, bronchus and lung
CPT/HCPCS: 37226; 71045; 71275; 74174; 80048; 80053; 82533; 85025; 85027; 85610; 86850; 86880; 86900; 86901; 86920; 87635; 94640

== ENCOUNTER → 2022-01-19 | Outpatient (CLI) | payer MEDICARE, BC ==
--- NOTE | 2022-01-19 11:43 | US ---
EXAMINATION TYPE: US venous doppler duplex LE LT DATE OF EXAM: 01/19/2022 11:32 AM COMPARISON: NONE CLINICAL HISTORY: R60.0 Edema. SIDE PERFORMED: Left TECHNIQUE: The lower extremity deep venous system is examined utilizing real time linear array sonog bettie with graded compression, doppler sonography and color-flow sonography. VESSELS IMAGED: Common Femoral Vein Deep Femoral Vein Greater Saphenous Vein * Femoral Vein Popliteal Vein Small Saphenous Vein * Proximal Calf Veins (* superficial vessels) Left Leg: Negative for DVT IMPRESSION: No evidence for DVT at this time.
== END | disposition home or self-care (01) ==
LOC: RADUSWWP 10:55
PROVIDERS: ATTEND Family Medicine
DX: R60.0 Localized edema (principal)

== ENCOUNTER → 2022-06-14 | Outpatient (CLI) | payer MEDICARE, BC ==
--- NOTE | 2022-06-14 11:06 | FL ---
EXAMINATION TYPE: FL barium swallow DATE OF EXAM: 06/14/2022 10:56 AM COMPARISON: 09/13/2021 CT, 12/15/2021 CT, 01/03/2022 chest radiograph. CLINICAL INDICATION:Female, 67 years old with history of R13.10 Dysphagia, unspecified; TECHNIQUE: The procedure was explained and patient history elicited. All patient questions were ans wered prior to start of procedure. Multiple spot fluoroscopic images of the esophagus were obtained a fter the oral ingestion of effervescent crystals and liquid barium as the contrast agent. Fluoroscopic time: 1 minute 2 seconds min Fluoroscopic images: None Radiographs taken: 178 FINDINGS: There is focal outpouching just above the diaphragm measuring. Delayed transit of contrast with terti rona contractions of the distal esophagus. There is mild retention of oral contrast which required mul tiple swallows in time to transit into the stomach. The mucosa is otherwise within normal limits. No evidence of reflux. No evidence of ulceration. IMPRESSION: 1. Esophageal dysmotility. 2. 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
== END | disposition home or self-care (01) ==
LOC: RADUSWWP 09:45
PROVIDERS: ATTEND Internal Medicine Gastroenterology
DX: K22.4 Dyskinesia of esophagus (principal); K22.5 Diverticulum of esophagus, acquired; R13.10 Dysphagia, unspecified
CPT/HCPCS: 74220

== ENCOUNTER → 2022-06-26 | Outpatient (CLI) | payer MEDICARE, BC ==
[~2022-06-26] MED LIST changes: +DENOSUMAB 60 MG/ML 1 ML SYRINGE SQ NR; -SODIUM CHLORIDE 0.9% 1,000 ML in EMPTY BAG 1 BAG IV ONE
[2022-06-26 13:18] VITALS: BP 127/77; PULSE 79; RESP 18; TEMP 98
== END ==
LOC: PROCWHC3 12:57
PROVIDERS: ATTEND Family Medicine
DX: M81.0 Age-related osteoporosis without current pathological fracture (principal); Z91.018 Allergy to other foods; Z91.041 Radiographic dye allergy status; Z88.5 Allergy status to narcotic agent; Z88.0 Allergy status to penicillin; Z88.1 Allergy status to other antibiotic agents; Z88.8 Allergy status to other drugs, medicaments and biological substances; Z87.891 Personal history of nicotine dependence
CPT/HCPCS: 96372; J0897

== ENCOUNTER → 2022-06-28 | Outpatient (CLI) | payer MEDICARE, BC ==
--- NOTE | 2022-06-28 10:19 | MM ---
Reason for Exam: Clinical finding. Last screening mammogram was performed 12 month(s) ago. Patient History: Menarche at age 12. First Full-Term at age 19. Hysterectomy at age 59. Postmenopausal. Breast cancer, age 64. Previous chemotherapy. 2019, Lumpectomy on the Left side. 2019, Radiation Therapy on the left side. Mother had breast cancer, age 56. Tissue Density: The breast tissue is heterogeneously dense. This may lower the sensitivity of mammography. Findings: Analyzed By CAD. Benign calcifications within both breasts. No suspicious calcifications within either breast. Biopsy clip within the left breast. No new suspicious masses in either breast. Postsurgical and posttherapy changes of the left breast. Overall Assessment: Benign, BI-RAD 2 Management: Diagnostic Mammogram of both breasts in 1 year. A clinical breast exam by your physician is recommended on an annual basis and results should be correlated with mammographic findings. This exam should not preclude additional follow-up of suspicious palpable abnormalities. Results were given to the patient verbally at the time of exam. Electronically signed and approved by: Pablito Stinson D.O.
== END | disposition home or self-care (01) ==
LOC: RADMAMWWP 09:41
PROVIDERS: ATTEND Internal Medicine Hematology & Oncology
DX: C50.112 Malignant neoplasm of central portion of left female breast (principal); M81.0 Age-related osteoporosis without current pathological fracture; J43.9 Emphysema, unspecified; R92.8 Other abnormal and inconclusive findings on diagnostic imaging of breast; Z78.0 Asymptomatic menopausal state; Z80.3 Family history of malignant neoplasm of breast
CPT/HCPCS: 77066; G0279; 77062

== ENCOUNTER 2022-08-06 04:28 | Inpatient (IN) | payer MEDICARE, BC ==
[2022-08-06] MEDS ORDERED: ACETAMINOPHEN TAB 325 MG TAB PO STA (04:44)
[2022-08-06] MEDS ORDERED: DILTIAZEM DRIP BOLUS FROM BAG 1 MG SOLN IV ONE (04:44)
--- NOTE | 2022-08-06 04:49 | ED ---
SOB HPI - General Chief Complaint: Shortness of Breath Stated Complaint: SOB Time Seen by Provider: 08/06/22 04:35 Source: EMS Mode of arrival: EMS Limitations: no limitations - History of Present Illness Initial Comments: 's patient is a 67-year-old woman who presents with complaint of shortness of breath. She states that she started to have some a little after dinner. She tried to sleep but found she is not able to lie flat and her breathing continued to worsen until EMS was called. MD Complaint: shortness of breath -: hour(s) Consistency: constant Improves With: oxygen Worsens With: lying flat Known History Of: COPD Associated Symptoms: denies other symptoms Treatments Prior to Arrival: oxygen - Related Data Home Medications Medication Instructions Recorded Confirmed Hydroxychloroquine Sulfate 200 mg PO BID 03/29/15 08/06/22 [Plaquenil] Fluticasone Propion/Salmeterol 1 puff INHALATION RT-BID 05/31/16 08/06/22 [Advair 500-50 Diskus] Gabapentin [Neurontin] 300 mg PO BID 04/07/19 08/06/22 Levalbuterol Hfa Inhaler [Xopenex 1 puff INHALATION RT-Q6H PRN 04/07/19 08/06/22 Hfa Inhaler] Calcium Carbonate [Calcium] 1,200 mg PO DAILY 04/29/19 08/06/22 Letrozole [Femara] 2.5 mg PO DAILY 10/23/19 08/06/22 Albuterol Nebulized [Ventolin 2.5 mg INHALATION RT-QID PRN 11/04/20 08/06/22 Nebulized] Docusate [Colace] 100 mg PO DAILY 01/09/21 08/06/22 buPROPion HCL [Wellbutrin SR] 100 mg PO DAILY 01/09/21 08/06/22 ALPRAZolam [Xanax] 0.25 mg PO BID PRN 08/03/21 08/06/22 Cholecalciferol [Vitamin D3 (25 50 mcg PO DAILY 08/03/21 08/06/22 Mcg = 1000 Iu)] Tiotropium 2.5 Mcg/Puff [Spiriva 2 puff INHALATION RT-DAILY 08/03/21 08/06/22 Respimat 2.5 Mcg] Furosemide [Lasix] 20 mg PO DAILY 11/30/21 08/06/22 hydroCHLOROthiazide [Hydrodiuril] 25 mg PO DAILY 11/30/21 08/06/22 Gabapentin [Neurontin] 400 mg PO TID 08/06/22 08/06/22 predniSONE See Taper PO DIRECTED 08/06/22 08/06/22 Previous Rx's Medication Instructions Recorded Atorvastatin [Lipitor] 80 mg PO HS #90 tab 07/29/21 Metoprolol Tartrate [Lopressor] 12.5 mg PO BID 30 Days #60 tab 08/05/21 Pantoprazole Sodium [Protonix] 40 mg PO BID #60 tab 08/07/21 Aspirin 325 mg PO DAILY tab 01/06/22 Rivaroxaban [Xarelto] 2.5 mg PO BID #60 tab 07/25/22 Allergies Allergy/AdvReac Type Severity Reaction Status Date / Time banana Allergy Abdominal Verified 08/06/22 12:20 Pain budesonide [From Pulmicort] Allergy Dyspnea Verified 08/06/22 12:20 Iodinated Contrast Media Allergy Anaphylaxis Verified 08/06/22 12:20 [Iodinated Contrast Media - IV Dye] penicillin G Allergy Rash/Hives Verified 08/06/22 12:20 codeine AdvReac Nausea & Verified 08/06/22 12:20 Vomiting levofloxacin AdvReac joint pain Verified 08/06/22 12:20 verapamil AdvReac HEADACHE Verified 08/06/22 12:20 Review of Systems ROS Statement: Those systems with pertinent positive or pertinent negative responses have been documented in the HPI. ROS Other: All systems not noted in ROS Statement are negative. Constitutional: Reports: fever. Denies: weakness Respiratory: Reports: dyspnea Cardiovascular: Reports: palpitations, orthopnea, edema. Denies: chest pain, syncope Gastrointestinal: Denies: abdominal pain, vomiting, diarrhea Genitourinary: Denies: dysuria, hematuria Musculoskeletal: Denies: back pain Skin: Denies: rash Neurological: Denies: headache, weakness Past Medical History Past Medical History: Atrial Fibrillation, Cancer, COPD, GERD/Reflux, Hyperlipidemia, Pneumonia, Respiratory Disorder, Vascular Disorder Additional Past Medical History / Comment(s): wound left leg-following wound care w/ Libby Pacheco upper lobe nodule being monitored, home oxygen at 2L/CONTINOUS, PVD, osteoporosis, constipation. LEFT BREAST CANCER received radiation 2020 History of Any Multi-Drug Resistant Organisms: None Reported Past Surgical History: Breast Surgery, Cholecystectomy, Hysterectomy, Orthopedic Surgery Additional Past Surgical History / Comment(s): 07/29/21 L iliac percutaneous balloon angioplasty with stent/atherectomy/PTBA L femoral artery/[employer] R femoral artery/R iliac stent, abdominal aortagram, bronchoscopies with biopsy, bilateral wrist carpal tunnel, TMJ surgery, left neck cyst removed, colonoscopy, left breast lumpectomy. Past Anesthesia/Blood Transfusion Reactions: Previous Problems w/ Anesthesia, Blood Transfusion Reaction Additional Past Anesthesia/Blood Transfusion Reaction / Comment(s): SLOW TO WAKE UP. had transfusion in Jan 2022-had reaction dyspnea,tachypnea,nausea Past Psychological History: Anxiety Smoking Status: Never smoker - Past Family History Father Family Medical History: Cancer Additional Family Medical History / Comment(s): LUNG CANCER. Mother Family Medical History: Cancer Additional Family Medical History / Comment(s): BREAST CANCER. General Exam Limitations: no limitations General appearance: alert, in distress Head exam: Present: atraumatic, normocephalic Eye exam: Present: normal appearance. Absent: scleral icterus, conjunctival injection Neck exam: Present: normal inspection Respiratory exam: Present: respiratory distress, wheezes. Absent: rales, rhonchi, stridor Cardiovascular Exam: Present: tachycardia, irregular rhythm, normal heart sounds. Absent: systolic murmur, diastolic murmur, rubs, gallop GI/Abdominal exam: Present: soft. Absent: distended, tenderness, guarding, rebound, rigid, mass Extremities exam: Present: normal inspection, normal capillary refill, pedal edema. Absent: calf tenderness Back exam: Present: normal inspection Neurological exam: Present: alert Skin exam: Present: warm, dry, intact, normal color. Absent: rash Course Vital Signs 08/06/22 08/06/22 08/06/22 04:34 05:10 06:00 Temperature 101.3 F H Pulse Rate 140 H 124 H 114 H Respiratory 24 20 Rate Blood Pressure 137/80 112/50 117/45 O2 Sat by Pulse 99 100 98 Oximetry 08/06/22 08/06/22 08/06/22 06:07 06:33 07:00 Temperature 98.1 F Pulse Rate 115 H 111 H 105 H Respiratory 18 18 Rate Blood Pressure 115/69 113/54 94/48 O2 Sat by Pulse 98 98 100 Oximetry 08/06/22 08/06/22 08/06/22 08:00 10:00 11:00 Temperature Pulse Rate 101 H 96 92 Respiratory Rate Blood Pressure 94/45 96/45 94/46 O2 Sat by Pulse 100 100 100 Oximetry 08/06/22 08/06/22 08/06/22 13:00 14:14 14:58 Temperature Pulse Rate 78 72 74 Respiratory 18 18 18 Rate Blood Pressure 92/48 88/42 83/45 O2 Sat by Pulse 99 100 Oximetry Medical Decision Making - Medical Decision Making This patient is 67-year-old woman presenting to emergency Department with dyspnea, orthopnea, and some edema. The patient's workup does show what appears to be atrial fibrillation with rapid ventricular rate. There does appear to be an element of congestive heart failure probably secondary to the arrhythmia. The patient has started on medication, will be admitted to the hospitalist with consultation for cardiology and also for wound care Patient had chest x-ray which I interpreted to show bilateral vascular congestion. Was pt. sent in by a medical professional or institution (GIACOMO Coello, [employer], urgent care, hospital, or [facility]...) When possible be specific @ -[No] Did you speak to anyone other than the patient for history (EMS, parent, family, police, friend...)? What history was obtained from this source @ -[No] Did you review nursing and triage notes (agree or disagree)? Why? @ -[I reviewed and agree with nursing and triage notes] Were old charts reviewed (outside hosp., previous admission, EMS record, old EKG, old radiological studies, urgent care reports/EKG's, [facility] records)? Report findings @ -[No old charts were reviewed] Differential Diagnosis (chest pain, altered mental status, abdominal pain women, abdominal pain men, vaginal bleeding, weakness, fever, dyspnea, syncope, headache, dizziness, GI bleed, back pain, seizure, CVA, palpatations, mental health, musculoskeletal)? @ -[not applicable] EKG interpreted by me (3pts min.). @ -[As above] X-rays interpreted by me (1pt min.). @ -[As above CT interpreted by me (1pt min.). @ -[None done] U/S interpreted by me (1pt. min.). @ -[None done] What testing was considered but not performed or refused? (CT, X-rays, U/S, labs)? Why? @ -[None] What meds were considered but not given or refused? Why? @ -[None] Did you discuss the management of the patient with other professionals (professionals i.e. , PA, [employer], lab, RT, psych nurse, healthcare social worker, ssrs report developer, teacher, family preservation officer, manager rn case)? Give summary @ -[Admitting physician Was smoking cessation discussed for >3mins.? @ -[No] Was critical care preformed (if so, how long)? @ -[No] Were there social determinants of health that impacted care today? How? (Homelessness, low income, unemployed, alcoholism, drug addiction, transportation, low edu. Level, literacy, decrease access to med. care, group home, rehab)? @ -[No] Was there de-escalation of care discussed even if they declined (Discuss DNR or withdrawal of care, Hospice)? DNR status @ -[No] What co-morbidities impacted this encounter? (DM, HTN, Smoking, COPD, CAD, Cancer, CVA, ARF, Chemo, Hep., AIDS, mental health diagnosis, sleep apnea, morbid obesity)? @ -[None] Was patient admitted / discharged? Hospital course, mention meds given and route, prescriptions, significant lab abnormalities, going to OR and other pertinent info. @ -[Admitted Undiagnosed new problem with uncertain prognosis? @ -[No] Drug Therapy requiring intensive monitoring for toxicity (Heparin, Nitro, Insulin, Cardizem)? @ -[No] Were any procedures done? @ -[No] Diagnosis/symptom? @ -[1. Acute on chronic dyspnea 2. Atrial fibrillation with rapid ventricular rate 3. Acute exacerbation of congestive heart failure 4. The lateral venous stasis ulcers 5. Elevated troponin I Acute, or Chronic, or Acute on Chronic? @ -[acute Uncomplicated (without systemic symptoms) or Complicated (systemic symptoms)? @ -[complicated Side effects of treatment? @ -[No] Exacerbation, Progression, or Severe Exacerbation? @ -[No] Poses a threat to life or bodily function? How? (Chest pain, [place], [place], pneumonia, PE, COPD, DKA, ARF, appy, cholecystitis, CVA, Diverticulitis, Homicidal, Suicidal, threat to staff... and all critical care pts) @ -[yes, untreated exacerbation may lead to - Lab Data Result diagrams: 08/08/22 09:48 08/08/22 09:48 Lab Results 08/06/22 08/06/22 08/06/22 Range/Units 04:39 04:39 04:39 WBC 17.2 H (3.8-10.6) k/uL RBC 3.53 L (3.80-5.40) m/uL Hgb 10.8 L (11.4-16.0) gm/dL Hct 33.6 L (34.0-46.0) % MCV 95.1 (80.0-100.0) fL MCH 30.6 (25.0-35.0) pg MCHC 32.2 (31.0-37.0) g/dL RDW 16.2 H (11.5-15.5) % Plt Count 251 (150-450) k/uL MPV 7.1 Neutrophils % [employer] Neutrophils % (Manual) 68 % Band Neuts % (Manual) 30 % Lymphocytes % [employer] Lymphocytes % (Manual) 1 % Monocytes % [employer] Monocytes % (Manual) 2 % Eosinophils % [employer] Basophils % [employer] Neutrophils # [employer] Neutrophils # (Manual) 16.80 H (1.3-7.7) k/uL Lymphocytes # [employer] Lymphocytes # (Manual) 0.17 L (1.0-4.8) k/uL Monocytes # [employer] Monocytes # (Manual) 0.34 (0-1.0) k/uL Eosinophils # [employer] Basophils # [employer] Nucleated RBCs 0 (0-0) /100 WBC Manual Slide Review Performed Toxic Vacuolation Present Polychromasia Present Hypochromasia Slight Poikilocytosis Moderate Anisocytosis Slight PT 11.1 (9.0-12.0) sec INR 1.1 (<1.2) APTT 17.8 L (22.0-30.0) sec Sodium 136 L (137-145) mmol/L Potassium 3.5 (3.5-5.1) mmol/L Chloride 89 L (98-107) mmol/L Carbon Dioxide 43 H* (22-30) mmol/L Anion Gap 4 mmol/L BUN 13 (7-17) mg/dL Creatinine 0.40 L (0.52-1.04) mg/dL Est GFR (CKD-EPI)AfAm >90 (>60 ml/min/1.73 sqM) Est GFR (CKD-EPI)NonAf >90 (>60 ml/min/1.73 sqM) Glucose 106 H (74-99) mg/dL Calcium 8.5 (8.4-10.2) mg/dL Magnesium 1.6 (1.6-2.3) mg/dL Total Bilirubin 0.8 (0.2-1.3) mg/dL AST 23 (14-36) U/L ALT 23 (4-34) U/L Alkaline Phosphatase 78 (38-126) U/L Troponin I (0.000-0.034) ng/mL Total Protein 5.2 L (6.3-8.2) g/dL Albumin 2.8 L (3.5-5.0) g/dL Influenza Type A (PCR) (Not Detectd) Influenza Type B (PCR) (Not Detectd) RSV (PCR) (Not Detectd) SARS-CoV-2 (PCR) (Not Detectd) 08/06/22 08/06/22 Range/Units 04:39 04:42 WBC (3.8-10.6) k/uL RBC (3.80-5.40) m/uL Hgb (11.4-16.0) gm/dL Hct (34.0-46.0) % MCV (80.0-100.0) fL MCH (25.0-35.0) pg MCHC (31.0-37.0) g/dL RDW (11.5-15.5) % Plt Count (150-450) k/uL MPV Neutrophils % Neutrophils % (Manual) % Band Neuts % (Manual) % Lymphocytes % Lymphocytes % (Manual) % Monocytes % Monocytes % (Manual) % Eosinophils % Basophils % Neutrophils # Neutrophils # (Manual) (1.3-7.7) k/uL Lymphocytes # Lymphocytes # (Manual) (1.0-4.8) k/uL Monocytes # Monocytes # (Manual) (0-1.0) k/uL Eosinophils # Basophils # Nucleated RBCs (0-0) /100 WBC Manual Slide Review Toxic Vacuolation Polychromasia Hypochromasia Poikilocytosis Anisocytosis PT (9.0-12.0) sec INR (<1.2) APTT (22.0-30.0) sec Sodium (137-145) mmol/L Potassium (3.5-5.1) mmol/L Chloride (98-107) mmol/L Carbon Dioxide (22-30) mmol/L Anion Gap mmol/L BUN (7-17) mg/dL Creatinine (0.52-1.04) mg/dL Est GFR (CKD-EPI)AfAm (>60 ml/min/1.73 sqM) Est GFR (CKD-EPI)NonAf (>60 ml/min/1.73 sqM) Glucose (74-99) mg/dL Calcium (8.4-10.2) mg/dL Magnesium (1.6-2.3) mg/dL Total Bilirubin (0.2-1.3) mg/dL AST (14-36) U/L ALT (4-34) U/L Alkaline Phosphatase (38-126) U/L Troponin I 0.101 H* (0.000-0.034) ng/mL Total Protein (6.3-8.2) g/dL Albumin (3.5-5.0) g/dL Influenza Type A (PCR) Not Detected (Not Detectd) Influenza Type B (PCR) Not Detected (Not Detectd) RSV (PCR) Not Detected (Not Detectd) SARS-CoV-2 (PCR) Not Detected (Not Detectd) - EKG Data -: EKG Interpreted by In EKG shows normal: axis (Normal), intervals (Normal) Rate: tachycardia (Rate approximately 136 bpm) Interpretation: nonspecific ST-T wave changes, LVH, other (The rhythm appears to be atrial fibrillation with a rapid ventricular rate.) Disposition Clinical Impression: Atrial fibrillation with RVR, Dyspnea, Elevated troponin I level Disposition: ADMITTED IP TO THIS HOSP Condition: Fair
[2022-08-06 05:00] LABS: Anisocytosis Slight; HCT 33.6 % (34.0-46.0); HGB 10.8 gm/dL (11.4-16.0); Hypochromasia Slight; MCH 30.6 pg (25.0-35.0); MCHC 32.2 g/dL (31.0-37.0); MCV 95.1 fL (80.0-100.0); Mean Platelet Volume 7.1; Platelet Count 251 k/uL (150-450); Poikilocytosis Moderate; RBC 3.53 m/uL (3.80-5.40); RDW 16.2 % (11.5-15.5); WBC 17.2 k/uL (3.8-10.6)
[2022-08-06] MEDS ORDERED: DILTIAZEM 125 MG in SODIUM CHLORIDE 0.9% 100 ML IV SCH (05:00)
[2022-08-06 05:11] LABS: ALT 23 U/L (4-34); AST 23 U/L (14-36); African American GFR (CKD) >90 (>60 ml/min/1.73 sqM); Albumin 2.8 g/dL (3.5-5.0); Alkaline Phosphatase 78 U/L (38-126); Blood Urea Nitrogen 13 mg/dL (7-17); Calcium 8.5 mg/dL (8.4-10.2); Chloride 89 mmol/L (98-107); Glucose 106 mg/dL (74-99); Magnesium 1.6 mg/dL (1.6-2.3); Non-African American GFR(CKD) >90 (>60 ml/min/1.73 sqM); Potassium 3.5 mmol/L (3.5-5.1); Sodium 136 mmol/L (137-145); Total Bilirubin 0.8 mg/dL (0.2-1.3); Total Protein 5.2 g/dL (6.3-8.2)
[2022-08-06 05:17] LABS: Anion Gap 4 mmol/L
--- NOTE | 2022-08-06 05:22 | XR ---
EXAMINATION TYPE: XR chest 2V DATE OF EXAM: 08/06/2022 COMPARISON: 07/24/2022 HISTORY: Dysrhythmia TECHNIQUE: FINDINGS: Heart is enlarged. There is blunting of the costophrenic angles and pulmonary vascular contreras estion. There are chest leads. There is a mild thoracic kyphotic deformity with anterior wedging of l ower thoracic vertebra up to 30%. IMPRESSION: There is congestive heart failure with pleural fluid. Abnormalities appear mostly new com pared to recent exam.
[2022-08-06 05:26] LABS: INR 1.1 (<1.2); Prothrombin Time 11.1 sec (9.0-12.0)
[2022-08-06 05:38] LABS: Partial Thromboplastin Time 17.8 sec (22.0-30.0)
[2022-08-06 06:03] LABS: Carbon Dioxide 43 mmol/L (22-30)
[2022-08-06] MEDS ORDERED: ALPRAZolam 0.25 MG TAB PO PRN (06:11)
[2022-08-06] MEDS ORDERED: FUROSEMIDE 10 MG/ML 4 ML VIAL IV SCH (06:15)
[2022-08-06] MEDS: SODIUM CHLORIDE 0.9% 1,000 ML IV SCH (06:23)
[2022-08-06] MEDS: PANTOPRAZOLE 40 MG TABLET PO SCH ×2 (06:39→19:02)
[2022-08-06 06:56] LABS: Band Neutrophils % 30 %; Lymphocytes # (M) 0.17 k/uL (1.0-4.8); Monocytes # (M) 0.34 k/uL (0-1.0); Neutrophils % (M) 68 %; Nucleated Red Blood Cells 0 /100 WBC (0-0); Total Cells Counted 200
[2022-08-06 06:58] LABS: Polychromasia Present
[2022-08-06 07:00] LABS: Toxic Vacuolation Present
[2022-08-06] MEDS: ALBUTEROL HFA INHALER INHALATION PRN ×2 (07:37→21:13)
[2022-08-06] MEDS: TIOTROPIUM 2.5 MCG INHALER INHALATION SCH (07:37)
[2022-08-06] MEDS ORDERED: METOPROLOL TARTRATE 12.5 MG TAB PO SCH (09:00)
[2022-08-06] MEDS: HYDROXYCHLOROQUINE SULFATE 200 MG TAB PO SCH ×2 (11:04→21:28)
[2022-08-06] MEDS: RIVAROXABAN 2.5 MG TABLET PO SCH ×2 (11:04→21:28)
[2022-08-06] MEDS: DOCUSATE 100 MG CAP PO SCH (11:04)
[2022-08-06] MEDS: GABAPENTIN 300 MG CAP PO SCH ×2 (11:05→20:07)
[2022-08-06] MEDS: CHOLECALCIFEROL 25 MCG (1000 IU) TABLET PO SCH (11:05)
[2022-08-06] MEDS: ASPIRIN 325 MG TAB PO SCH (11:05)
[2022-08-06] MEDS: PIPERACILLIN-TAZOBACTAM 3.375 GM in SODIUM CHLORIDE 0.9% 100 ML IVPB SCH ×3 (11:07→23:42)
[2022-08-06] MEDS: LETROZOLE 2.5 MG TAB PO SCH (11:10)
[2022-08-06] MEDS: NITROGLYCERIN OINT 1 INCH/GM PACKET TOPICAL SCH ×4 (11:12→22:24)
[2022-08-06] MEDS: NON FORMULARY DRUG (Fluticasone Propion/Salmeterol [Advair 500-50 Diskus] 1 EACH Blst.W.De INHALATION SCH ×2 (11:21→20:34)
--- NOTE | 2022-08-06 12:13 | P.CRDCN ---
History of Present Illness Consult date: 08/06/22 Chief complaint: Shortness of breath History of present illness: The patient is a pleasant 67-year-old female patient who is known to our service from before with a past medical history significant for lower extremities peripheral arterial disease as well as severe COPD and chronic hypoxic respiratory failure on oxygen and also hypertension and dyslipidemia and history of multifocal atrial tachycardia. The patient presented to the hospital complaining of shortness of breath. The patient does have a baseline shortness of breath and she is on oxygen continuously at 2 L. For the last few days she has been experiencing increasing in the shortness of breath associated according to her and her with fever and cough productive of whitish sputum. Beside that she developed bilateral lower extremities edema. No symptoms of any chest pain or chest discomfort or dizziness or lightheadedness but she has been experiencing symptoms of heart racing and fluttering was no presyncope or syncope. The patient and her called ambulance and the patient was brought to the emergency department for further evaluation. She is known to have advanced COPD. Also she is known to have severe lower extremities PAD with a prior stenting of bilateral common iliacs and external iliacs and subsequently few weeks ago she underwent left femoral and left profunda endarterectomy with left femoral to tibial peroneal trunk bypass. She still does have a dressing on the left leg above the left knee because the incision has been healing very slowly. During this admission she underwent a workup including an EKG showing what it seems to be multifocal atrial tachycardia with differential diagnosis of atrial fibrillation and also she underwent cardiac enzymes showed mildly abnormal troponin. The chest x-ray showed findings consistent with CHF. The rest of the blood work came in to be unremarkable. On examination she was in mild respiratory distress. She was also coughing during the examination. She does have bilateral expiratory wheezing and mild bilateral lower except his edema. Reviewing the vital signs revealed marginally low blood pressure with systolic pressure in the 90s. Currently she is on Cardizem IV and she is also on Lasix IV. Assessment Acute on chronic hypoxic respiratory failure COPD exacerbation/pneumonia Heart failure exacerbation, predominantly right heart failure Paroxysmal atrial tachycardia Marginally low blood pressure Lower extremities PAD Plan Decrease the dose of Lasix IV in the light of marginally low blood pressure DC Cardizem IV and start the patient on Cardizem by mouth. Her heart rate has been in the 90s Continue monitor the kidney function and electrolytes Continue low-dose oral anticoagulation for the PAD Consider medical treatment for the mildly abnormal troponin Obtain an echocardiogram was Doppler Follow-up with the patient Past Medical History Past Medical History: Atrial Fibrillation, Cancer, COPD, GERD/Reflux, Hyperlipidemia, Pneumonia, Respiratory Disorder, Vascular Disorder Additional Past Medical History / Comment(s): wound left leg-following wound care w/ Libby Pacheco upper lobe nodule being monitored, home oxygen at 2L/CONTINOUS, PVD, osteoporosis, constipation. LEFT BREAST CANCER received rad iation 2019 History of Any Multi-Drug Resistant Organisms: None Reported Past Surgical History: Breast Surgery, Cholecystectomy, Hysterectomy, Orthopedic Surgery Additional Past Surgical History / Comment(s): 07/29/21 L iliac percutaneous balloon angioplasty with stent/atherectomy/PTBA L femoral artery/ASSISTANCE SPECIALIST R femoral artery/R iliac stent, abdominal aortagram, bronchoscopies with biopsy, bilateral wrist carpal tunnel, TMJ surgery, left neck cyst removed, colonoscopy, left breast lumpectomy. Past Anesthesia/Blood Transfusion Reactions: Previous Problems w/ Anesthesia, Blood Transfusion Reaction Additional Past Anesthesia/Blood Transfusion Reaction / Comment(s): SLOW TO WAKE UP. had transfusion in Jan 2022-had reaction dyspnea,tachypnea,nausea Past Psychological History: Anxiety Smoking Status: Never smoker - Past Family History Father Family Medical History: Cancer Additional Family Medical History / Comment(s): LUNG CANCER. Mother Family Medical History: Cancer Additional Family Medical History / Comment(s): BREAST CANCER. Medications and Allergies Home Medications Medication Instructions Recorded Confirmed Type Hydroxychloroquine Sulfate 200 mg PO BID 03/29/15 07/14/22 History [Plaquenil] Fluticasone Propion/Salmeterol 1 puff INHALATION RT-BID 05/31/16 07/14/22 History [Advair 500-50 Diskus] Gabapentin [Neurontin] 300 mg PO BID 04/07/19 07/14/22 History Levalbuterol Hfa Inhaler [Xopenex 1 puff INHALATION RT-Q6H PRN 04/07/19 07/14/22 History Hfa Inhaler] Calcium Carbonate [Calcium] 1,200 mg PO DAILY 04/29/19 07/14/22 History Letrozole [Femara] 2.5 mg PO DAILY 10/23/19 07/14/22 History Albuterol Nebulized [Ventolin 2.5 mg INHALATION RT-QID PRN 11/04/20 07/14/22 History Nebulized] Docusate [Colace] 100 mg PO DAILY 01/09/21 07/14/22 History buPROPion HCL [Wellbutrin SR] 100 mg PO QAM 01/09/21 07/14/22 History Atorvastatin [Lipitor] 80 mg PO HS #90 tab 07/29/21 07/14/22 Rx ALPRAZolam [Xanax] 0.25 mg PO BID PRN 08/03/21 07/14/22 History Cholecalciferol [Vitamin D3 (25 50 mcg PO DAILY 08/03/21 07/14/22 History Mcg = 1000 Iu)] Tiotropium 2.5 Mcg/Puff [Spiriva 2 puff INHALATION RT-DAILY 08/03/21 07/14/22 History Respimat 2.5 Mcg] Metoprolol Tartrate [Lopressor] 12.5 mg PO BID 30 Days #60 tab 08/05/21 07/14/22 Rx Pantoprazole Sodium [Protonix] 40 mg PO BID #60 tab 08/07/21 07/14/22 Rx Furosemide [Lasix] 20 mg PO DAILY 11/30/21 07/14/22 History hydroCHLOROthiazide [Hydrodiuril] 25 mg PO DAILY 11/30/21 07/14/22 History Aspirin 325 mg PO DAILY tab 01/06/22 07/14/22 Rx predniSONE [Deltasone] 10 mg PO DAILY 07/14/22 07/14/22 History Cephalexin [Keflex] 500 mg PO Q12HR 1 Days #14 cap 07/25/22 Rx HYDROcodone/APAP 5-325MG [[place] 1 each PO Q6HR PRN 3 Days #12 tab 07/25/22 Rx 5-325] Rivaroxaban [Xarelto] 2.5 mg PO BID #60 tab 07/25/22 Rx Allergies Allergy/AdvReac Type Severity Reaction Status Date / Time banana Allergy Abdominal Verified 07/21/22 06:32 Pain budesonide [From Pulmicort] Allergy Dyspnea Verified 07/21/22 06:32 Iodinated Contrast Media Allergy Anaphylaxis Verified 07/21/22 06:32 [Iodinated Contrast Media - IV Dye] penicillin G Allergy Rash/Hives Verified 07/21/22 06:32 codeine AdvReac Nausea & Verified 07/21/22 06:32 Vomiting levofloxacin AdvReac joint pain Verified 07/21/22 06:32 verapamil AdvReac HEADACHE Verified 07/21/22 06:32 Physical Exam Vitals: Vital Signs Temp Pulse Resp BP Pulse Ox 08/06/22 11:00 92 94/46 100 08/06/22 10:00 96 96/45 100 08/06/22 08:00 101 H 94/45 100 08/06/22 07:00 105 H 94/48 100 08/06/22 06:33 98.1 F 111 H 18 113/54 98 08/06/22 06:07 115 H 18 115/69 98 08/06/22 06:00 114 H 117/45 98 08/06/22 05:10 124 H 20 112/50 100 08/06/22 04:34 101.3 F H 140 H 24 137/80 99 Intake and Output 08/05/22 08/06/22 08/06/22 22:59 06:59 14:59 Other: Weight 56.699 kg Results 08/06/22 04:39 08/06/22 04:39 Cardiac Enzymes 08/06/22 08/06/22 08/06/22 Range/Units 04:39 04:39 07:26 AST 23 (14-36) U/L Troponin I 0.101 H* 0.184 H* (0.000-0.034) ng/mL 08/06/22 Range/Units 09:59 AST (14-36) U/L Troponin I 0.131 H* (0.000-0.034) ng/mL Coagulation 08/06/22 Range/Units 04:39 PT 11.1 (9.0-12.0) sec APTT 17.8 L (22.0-30.0) sec CBC 08/06/22 Range/Units 04:39 WBC 17.2 H (3.8-10.6) k/uL RBC 3.53 L (3.80-5.40) m/uL Hgb 10.8 L (11.4-16.0) gm/dL Hct 33.6 L (34.0-46.0) % Plt Count 251 (150-450) k/uL Comprehensive Metabolic Panel 08/06/22 Range/Units 04:39 Sodium 136 L (137-145) mmol/L Potassium 3.5 (3.5-5.1) mmol/L Chloride 89 L (98-107) mmol/L Carbon Dioxide 43 H* (22-30) mmol/L BUN 13 (7-17) mg/dL Creatinine 0.40 L (0.52-1.04) mg/dL Glucose 106 H (74-99) mg/dL Calcium 8.5 (8.4-10.2) mg/dL AST 23 (14-36) U/L ALT 23 (4-34) U/L Alkaline Phosphatase 78 (38-126) U/L Total Protein 5.2 L (6.3-8.2) g/dL Albumin 2.8 L (3.5-5.0) g/dL Current Medications Generic Name Dose Route Start Last Admin Trade Name Freq PRN Reason Stop Dose Admin Hydrocodone Bitart/Acetaminophen 1 each 08/06/22 06:11 Hydrocodone/Apap 5-325mg 1 Each Tab PO Q6HR PRN Pain Scale 6 to 10 Albuterol Sulfate 2 puff 08/06/22 06:11 08/06/22 07:37 Albuterol Hfa Inhaler INHALATION 2 puff RT-Q6H PRN Administration Shortness Of Breath Alprazolam 0.25 mg 08/06/22 06:11 Alprazolam 0.25 Mg Tab PO BID PRN Anxiety Aspirin 325 mg 08/06/22 09:00 08/06/22 11:05 Aspirin 325 Mg Tab PO 325 mg DAILY PAO Administration Atorvastatin Calcium 80 mg 08/06/22 21:00 Atorvastatin 80 Mg Tab PO HS [facility] Cholecalciferol 50 mcg 08/06/22 09:00 08/06/22 11:05 Cholecalciferol 25 Mcg (1000 Iu) Tablet PO 50 mcg DAILY PAO Administration Docusate Sodium 100 mg 08/06/22 09:00 08/06/22 11:04 Docusate 100 Mg Cap PO 100 mg DAILY PAO Administration Furosemide 20 mg 08/06/22 12:04 Furosemide 10 Mg/Ml 4 Ml Vial IV Q12H PAO Gabapentin 300 mg 08/06/22 09:00 08/06/22 11:05 Gabapentin 300 Mg Cap PO 300 mg BID PAO Administration Hydroxychloroquine Sulfate 200 mg 08/06/22 09:00 08/06/22 11:04 Hydroxychloroquine Sulfate 200 Mg Tab PO 200 mg BID PAO Administration Sodium Chloride 1,000 mls @ 20 mls/hr 08/06/22 06:15 08/06/22 06:23 Saline 0.9% IV 20 mls/hr .Q24H PAO Administration Piperacillin Sod/Tazobactam 100 mls @ 25 mls/hr 08/06/22 08:00 08/06/22 11:07 Sod 3.375 gm/ Sodium Chloride IVPB 25 mls/hr Q8HR PAO Administration Protocol Letrozole 2.5 mg 08/06/22 09:00 08/06/22 11:10 Letrozole 2.5 Mg Tab PO 2.5 mg DAILY PAO Administration Metoprolol Tartrate 25 mg 08/06/22 21:00 Metoprolol Tartrate 12.5 Mg Tab PO BID [facility] Nitroglycerin 0.5 inch 08/06/22 09:00 08/06/22 11:12 Nitroglycerin Oint 1 Inch/Gm Packet TOPICAL Not Given QID [facility] Non-Formulary Medication 1 puff 08/06/22 08:00 08/06/22 11:21 Fluticasone Propion/Salmeterol [Advair 500-50 Diskus] INHALATION Not Given RT-BID [facility] Pantoprazole Sodium 40 mg 08/06/22 07:30 08/06/22 06:39 Pantoprazole 40 Mg Tablet PO 40 mg AC-BID [facility] Administration Rivaroxaban 2.5 mg 08/06/22 09:00 08/06/22 11:04 Rivaroxaban 2.5 Mg Tablet PO 2.5 mg BID [facility] Administration Protocol Tiotropium [place] 2 puff 08/06/22 08:00 08/06/22 07:37 Tiotropium 2.5 Mcg Inhaler INHALATION 2 puff RT-DAILY [facility] Administration Intake and Output 08/05/22 08/06/22 08/06/22 22:59 06:59 14:59 Other: Weight 56.699 kg 08/06/22 04:39 08/06/22 04:39
[2022-08-06] MEDS: HYDROcodone/APAP 5-325MG 1 EACH TAB PO PRN ×2 (13:56→21:05)
[2022-08-06] MEDS: FUROSEMIDE 10 MG/ML 2 ML VIAL IV SCH (13:57)
--- NOTE | 2022-08-06 16:45 | P.HPIM ---
History of Present Illness H&P Date: 08/06/22 Chief Complaint: Shortness of breath 67-year-old female patient; past medical history significant for lower extremities peripheral arterial disease as well as severe COPD and chronic hypoxic respiratory failure on oxygen and also hypertension and dyslipidemia and history of multifocal atrial tachycardia, presented to the hospital complaining of shortness of breath. The patient does have a baseline shortness of breath and she is on oxygen continuously at 2 L. For the last few days she has been experiencing increasing in the shortness of breath associated according to her and her with fever and cough productive of whitish sputum. Beside that she developed bilateral lower extremities edema. No symptoms of any chest pain or chest discomfort or dizziness or lightheadedness but she has been experiencing symptoms of heart racing and fluttering was no presyncope or syncope. The patient and her called ambulance and the patient was brought to the emergency department for further evaluation. During this admission she underwent a workup including an EKG showing what it seems to be multifocal atrial tachycardia with differential diagnosis of atrial fibrillation and also she underwent cardiac enzymes showed mildly abnormal troponin. The chest x-ray showed findings consistent with CHF. The rest of the blood work came in to be unremarkable. On examination she was in mild respiratory distress. She was also coughing during the examination. She does have bilateral expiratory wheezing and mild bilateral lower except his edema. Reviewing the vital signs revealed marginally low blood pressure with systolic pressure in the 90s. Currently she is on Cardizem IV and she is also on Lasix IV. Review of Systems REVIEW OF SYSTEMS: CONSTITUTIONAL: No fever, no malaise, no fatigue. HEENT: No recent visual problems or hearing problems. Denied any sore throat. CARDIOVASCULAR: No chest pain, orthopnea, PND, no palpitations, no syncope. PULMONARY: No shortness of breath, no cough, no hemoptysis. GASTROINTESTINAL: No diarrhea, no nausea, no vomiting, no abdominal pain. NEUROLOGICAL: No headaches, no weakness, no numbness. HEMATOLOGICAL: Denies any bleeding or petechiae. GENITOURINARY: Denies any burning micturition, frequency, or urgency. MUSCULOSKELETAL/RHEUMATOLOGICAL: Denies any joint pain, swelling, or any muscle pain. ENDOCRINE: Denies any polyuria or polydipsia. The rest of the 14-point review of systems is negative. Past Medical History Past Medical History: Atrial Fibrillation, Cancer, COPD, GERD/Reflux, Hyperli pidemia, Pneumonia, Respiratory Disorder, Vascular Disorder Additional Past Medical History / Comment(s): wound left leg-following wound care w/ Libby Pacheco upper lobe nodule being monitored, home oxygen at 2L/CONTINOUS, PVD, osteoporosis, constipation. LEFT BREAST CANCER received radiation 2019 History of Any Multi-Drug Resistant Organisms: None Reported Past Surgical History: Breast Surgery, Cholecystectomy, Hysterectomy, Orthopedic Surgery Additional Past Surgical History / Comment(s): 07/29/21 L iliac percutaneous balloon angioplasty with stent/atherectomy/PTBA L femoral artery/INTERMEDIATE PROJECT MANAGER R femoral artery/R iliac stent, abdominal aortagram, bronchoscopies with biopsy, bilateral wrist carpal tunnel, TMJ surgery, left neck cyst removed, colonoscopy, left breast lumpectomy. Past Anesthesia/Blood Transfusion Reactions: Previous Problems w/ Anesthesia, Blood Transfusion Reaction Additional Past Anesthesia/Blood Transfusion Reaction / Comment(s): SLOW TO WAKE UP. had transfusion in Jan 2022-had reaction dyspnea,tachypnea,nausea Past Psychological History: Anxiety Smoking Status: Never smoker - Past Family History Father Family Medical History: Cancer Additional Family Medical History / Comment(s): LUNG CANCER. Mother Family Medical History: Cancer Additional Family Medical History / Comment(s): BREAST CANCER. Medications and Allergies Home Medications Medication Instructions Recorded Confirmed Type Hydroxychloroquine Sulfate 200 mg PO BID 03/29/15 08/06/22 History [Plaquenil] Fluticasone Propion/Salmeterol 1 puff INHALATION RT-BID 05/31/16 08/06/22 History [Advair 500-50 Diskus] Gabapentin [Neurontin] 300 mg PO BID 04/07/19 08/06/22 History Levalbuterol Hfa Inhaler [Xopenex 1 puff INHALATION RT-Q6H PRN 04/07/19 08/06/22 History Hfa Inhaler] Calcium Carbonate [Calcium] 1,200 mg PO DAILY 04/29/19 08/06/22 History Letrozole [Femara] 2.5 mg PO DAILY 10/23/19 08/06/22 History Albuterol Nebulized [Ventolin 2.5 mg INHALATION RT-QID PRN 11/04/20 08/06/22 History Nebulized] Docusate [Colace] 100 mg PO DAILY 01/09/21 08/06/22 History buPROPion HCL [Wellbutrin SR] 100 mg PO DAILY 01/09/21 08/06/22 History Atorvastatin [Lipitor] 80 mg PO HS #90 tab 07/29/21 08/06/22 Rx ALPRAZolam [Xanax] 0.25 mg PO BID PRN 08/03/21 08/06/22 History Cholecalciferol [Vitamin D3 (25 50 mcg PO DAILY 08/03/21 08/06/22 History Mcg = 1000 Iu)] Tiotropium 2.5 Mcg/Puff [Spiriva 2 puff INHALATION RT-DAILY 08/03/21 08/06/22 History Respimat 2.5 Mcg] Metoprolol Tartrate [Lopressor] 12.5 mg PO BID 30 Days #60 tab 08/05/21 08/06/22 Rx Pantoprazole Sodium [Protonix] 40 mg PO BID #60 tab 08/07/21 08/06/22 Rx Furosemide [Lasix] 20 mg PO DAILY 11/30/21 08/06/22 History hydroCHLOROthiazide [Hydrodiuril] 25 mg PO DAILY 11/30/21 08/06/22 History Aspirin 325 mg PO DAILY tab 01/06/22 08/06/22 Rx Rivaroxaban [Xarelto] 2.5 mg PO BID #60 tab 07/25/22 08/06/22 Rx Gabapentin [Neurontin] 400 mg PO TID 08/06/22 08/06/22 History predniSONE See Taper PO DIRECTED 08/06/22 08/06/22 History Allergies Allergy/AdvReac Type Severity Reaction Status Date / Time banana Allergy Abdominal Verified 08/06/22 12:20 Pain budesonide [From Pulmicort] Allergy Dyspnea Verified 08/06/22 12:20 Iodinated Contrast Media Allergy Anaphylaxis Verified 08/06/22 12:20 [Iodinated Contrast Media - IV Dye] penicillin G Allergy Rash/Hives Verified 08/06/22 12:20 codeine AdvReac Nausea & Verified 08/06/22 12:20 Vomiting levofloxacin AdvReac joint pain Verified 08/06/22 12:20 verapamil AdvReac HEADACHE Verified 08/06/22 12:20 Physical Exam Vitals: Vital Signs Temp Pulse Resp BP Pulse Ox 08/06/22 06:33 98.1 F 111 H 18 113/54 98 08/06/22 06:07 115 H 18 115/69 98 08/06/22 06:00 114 H 117/45 98 08/06/22 05:10 124 H 20 112/50 100 08/06/22 04:34 101.3 F H 140 H 24 137/80 99 Intake and Output 08/05/22 08/06/22 08/06/22 22:59 06:59 14:59 Other: Weight 56.699 kg - Constitutional General appearance: Present: average body habitus, cooperative, no acute distres s - EENT Eyes: Present: anicteric sclerae, EOMI, PERRLA, normal appearance ENT: Present: hearing grossly normal, normal oropharynx Ears: bilateral: normal - Neck Neck: Present: normal ROM. Absent: lymphadenopathy, rigidity, thyromegaly Carotids: negative: bruit present Thyroid: bilateral: normal size, negative: enlarged, nodule - Respiratory Respiratory: bilateral: CTA, negative: rales, rhonchi, wheezing - Cardiovascular Rhythm: regular Heart sounds: normal: S1, S2 Abnormal Heart Sounds: Absent: systolic murmur, diastolic murmur - Gastrointestinal General gastrointestinal: Present: normal bowel sounds, soft. Absent: distended, organomegaly, tenderness - Genitourinary Genitourinary Comment(s): deferred - Integumentary Integumentary: Present: normal turgor. Absent: jaundiced, rash, ulcer - Neurologic Neurologic: Present: CNII-XII intact. Absent: focal deficits - Musculoskeletal Musculoskeletal: Present: gait normal, strength equal bilaterally - Psychiatric Psychiatric: Present: A&O x's 3, appropriate affect, intact judgment & insight Results CBC & Chem 7: 08/06/22 04:39 08/06/22 04:39 Labs: Abnormal Lab Results - Last 24 Hours (Table) 08/06/22 08/06/22 08/06/22 Range/Units 04:39 04:39 04:39 WBC 17.2 H (3.8-10.6) k/uL RBC 3.53 L (3.80-5.40) m/uL Hgb 10.8 L (11.4-16.0) gm/dL Hct 33.6 L (34.0-46.0) % RDW 16.2 H (11.5-15.5) % Neutrophils # (Manual) 16.80 H (1.3-7.7) k/uL Lymphocytes # (Manual) 0.17 L (1.0-4.8) k/uL APTT 17.8 L (22.0-30.0) sec Sodium 136 L (137-145) mmol/L Chloride 89 L (98-107) mmol/L Carbon Dioxide 43 H* (22-30) mmol/L Creatinine 0.40 L (0.52-1.04) mg/dL Glucose 106 H (74-99) mg/dL Troponin I (0.000-0.034) ng/mL Total Protein 5.2 L (6.3-8.2) g/dL Albumin 2.8 L (3.5-5.0) g/dL 08/06/22 Range/Units 04:39 WBC (3.8-10.6) k/uL RBC (3.80-5.40) m/uL Hgb (11.4-16.0) gm/dL Hct (34.0-46.0) % RDW (11.5-15.5) % Neutrophils # (Manual) (1.3-7.7) k/uL Lymphocytes # (Manual) (1.0-4.8) k/uL APTT (22.0-30.0) sec Sodium (137-145) mmol/L Chloride (98-107) mmol/L Carbon Dioxide (22-30) mmol/L Creatinine (0.52-1.04) mg/dL Glucose (74-99) mg/dL Troponin I 0.101 H* (0.000-0.034) ng/mL Total Protein (6.3-8.2) g/dL Albumin (3.5-5.0) g/dL Assessment and Plan Assessment: Acute on chronic hypoxic respiratory failure COPD exacerbation/pneumonia Heart failure exacerbation, predominantly right heart failure Paroxysmal atrial tachycardia Marginally low blood pressure Lower extremities PAD Hyperlipidemia Plan Decrease the dose of Lasix IV in the light of marginally low blood pressure DC Cardizem IV and start the patient on Cardizem by mouth. Her heart rate has been in the 90s Continue monitor the kidney function and electrolytes Continue low-dose oral anticoagulation for the PAD Consider medical treatment for the mildly abnormal troponin Obtain an echocardiogram was Doppler
[2022-08-06] MEDS: DILTIAZEM ORAL 30 MG TAB PO SCH ×2 (18:47→21:28)
[2022-08-06] MEDS: ATORVASTATIN 80 MG TAB PO SCH (20:07)
[2022-08-06] MEDS: METOPROLOL TARTRATE 25 MG TAB PO SCH (20:07)
[2022-08-06] MEDS ORDERED: MIDODRINE 5 MG TAB PO ONE (23:50)
[2022-08-07] MEDS: FUROSEMIDE 10 MG/ML 2 ML VIAL IV SCH ×3 (00:08→23:44)
[2022-08-07] MEDS: PANTOPRAZOLE 40 MG TABLET PO SCH ×2 (05:37→16:45)
[2022-08-07] MEDS: HYDROcodone/APAP 5-325MG 1 EACH TAB PO PRN ×2 (06:11→21:52)
[2022-08-07 06:41] LABS: African American GFR (CKD) >90 (>60 ml/min/1.73 sqM); Blood Urea Nitrogen 21 mg/dL (7-17); Calcium 7.9 mg/dL (8.4-10.2); Chloride 93 mmol/L (98-107); Glucose 71 mg/dL (74-99); Non-African American GFR(CKD) >90 (>60 ml/min/1.73 sqM); Potassium 3.3 mmol/L (3.5-5.1); Sodium 137 mmol/L (137-145)
[2022-08-07] MEDS: SODIUM CHLORIDE 0.9% 1,000 ML IV SCH (06:42)
[2022-08-07 06:48] LABS: Anion Gap 6 mmol/L
[2022-08-07 06:54] LABS: Carbon Dioxide 38 mmol/L (22-30)
[2022-08-07] MEDS ORDERED: Potassium Replacement Protocol 1 EACH MISC MISCELLANE PRN (08:08)
[2022-08-07] MEDS: PIPERACILLIN-TAZOBACTAM 3.375 GM in SODIUM CHLORIDE 0.9% 100 ML IVPB SCH ×3 (08:48→23:42)
[2022-08-07] MEDS: ALBUTEROL HFA INHALER INHALATION PRN ×2 (08:48→20:43)
[2022-08-07] MEDS: TIOTROPIUM 2.5 MCG INHALER INHALATION SCH (08:48)
[2022-08-07] MEDS: NON FORMULARY DRUG (Fluticasone Propion/Salmeterol [Advair 500-50 Diskus] 1 EACH Blst.W.De INHALATION SCH ×2 (08:49→20:44)
[2022-08-07] MEDS: ASPIRIN 325 MG TAB PO SCH (08:50)
[2022-08-07] MEDS: HYDROXYCHLOROQUINE SULFATE 200 MG TAB PO SCH ×2 (08:50→21:47)
[2022-08-07] MEDS: GABAPENTIN 300 MG CAP PO SCH ×2 (08:51→21:47)
[2022-08-07] MEDS: RIVAROXABAN 2.5 MG TABLET PO SCH ×2 (08:51→21:47)
[2022-08-07] MEDS: DOCUSATE 100 MG CAP PO SCH (08:51)
[2022-08-07] MEDS: CHOLECALCIFEROL 25 MCG (1000 IU) TABLET PO SCH (08:51)
[2022-08-07] MEDS: NITROGLYCERIN OINT 1 INCH/GM PACKET TOPICAL SCH (08:51)
[2022-08-07] MEDS: LETROZOLE 2.5 MG TAB PO SCH (08:51)
[2022-08-07] MEDS: METOPROLOL TARTRATE 25 MG TAB PO SCH ×2 (08:51→21:47)
[2022-08-07] MEDS: POTASSIUM CHLORIDE ER 20 MEQ TAB.ER PO SCH ×4 (08:51→17:36)
[2022-08-07] MEDS: DILTIAZEM ORAL 30 MG TAB PO SCH ×3 (08:51→21:47)
--- NOTE | 2022-08-07 10:16 | P.GSCN ---
History of Present Illness Consult date: 08/07/22 Reason for Consult: Recent surgery, purulent drainage Requesting physician: Lauro E Sheet History of present illness: This pleasant 67-year-old female known to our vascular surgical services. She presented to the emergency department yesterday with complaints of shortness of breath. Her past medical history includes COPD, chronic hypoxic respiratory failure oxygen dependent, hypertension, dyslipidemia, peripheral arterial disease and atrial fibrillation. Patient recently underwent left femoral endarterectomy with removal of femoral and profundus stent, left femoral and superficial femoral artery patch angioplasty, left femoral to tibioperoneal trunk bypass with in situ vein on 07/22/2022. Patient was discharged on 07/25/2022. On day of discharge patient was noted to have a small dehiscence in her left upper thigh wound, she was started on prophylactic antibiotics at that time. She has been following with wound care clinic and Dr. Garcia. She's been afebrile. She states she does have some discomfort near her surgical incisions however pain overall significantly improved from prior to surgery. She has good mobility and sensory intact to the left lower extremity. She was admitted to the hospital with COPD exacerbation and heart failure exacerbation. Vascular surgery was consulted for purulent drainage from postop surgical wound. Patient states she does have some shortness of breath, she has no chest pain at this time. No abdominal pain, nausea or vomiting. She had elevated troponins on admission, chest x-ray stated congestive heart failure with pleural fluid. Abnormalities appear mostly new compared to recent exam. Labs WBC 17 hemoglobin 10.8 platelet count 6 251,000 sodium 137 potassium 3.3 BUN 21 creatinine 0.3 glucose 71 troponins on admission 0.101, 0.184, 0.131 Review of Systems A 14 point review systems was completed all pertinent positives and negatives as stated in the HPI. Past Medical History Past Medical History: Atrial Fibrillation, Cancer, COPD, GERD/Reflux, H yperlipidemia, Pneumonia, Respiratory Disorder, Vascular Disorder Additional Past Medical History / Comment(s): wound left leg-following wound care w/ Libby Pacheco upper lobe nodule being monitored, home oxygen at 2L/CONTINOUS, PVD, osteoporosis, constipation. 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 Past Anesthesia/Blood Transfusion Reactions: Previous Problems w/ Anesthesia, Blood Transfusion Reaction Additional Past Anesthesia/Blood Transfusion Reaction / Comm: SLOW TO WAKE UP. had transfusion in Jan 2022-had reaction dyspnea,tachypnea,nausea Past Psychological History: Anxiety Smoking Status: Never smoker - Past Family History Father Family Medical History: Cancer Additional Family Medical History / Comment(s): LUNG CANCER. Mother Family Medical History: Cancer Additional Family Medical History / Comment(s): BREAST CANCER. Medications and Allergies Home Medications Medication Instructions Recorded Confirmed Type Hydroxychloroquine Sulfate 200 mg PO BID 03/29/15 08/06/22 History [Plaquenil] Fluticasone Propion/Salmeterol 1 puff INHALATION RT-BID 05/31/16 08/06/22 History [Advair 500-50 Diskus] Gabapentin [Neurontin] 300 mg PO BID 04/07/19 08/06/22 History Levalbuterol Hfa Inhaler [Xopenex 1 puff INHALATION RT-Q6H PRN 04/07/19 08/06/22 History Hfa Inhaler] Calcium Carbonate [Calcium] 1,200 mg PO DAILY 04/29/19 08/06/22 History Letrozole [Femara] 2.5 mg PO DAILY 10/23/19 08/06/22 History Albuterol Nebulized [Ventolin 2.5 mg INHALATION RT-QID PRN 11/04/20 08/06/22 History Nebulized] Docusate [Colace] 100 mg PO DAILY 01/09/21 08/06/22 History buPROPion HCL [Wellbutrin SR] 100 mg PO DAILY 01/09/21 08/06/22 History Atorvastatin [Lipitor] 80 mg PO HS #90 tab 07/29/21 08/06/22 Rx ALPRAZolam [Xanax] 0.25 mg PO BID PRN 08/03/21 08/06/22 History Cholecalciferol [Vitamin D3 (25 50 mcg PO DAILY 08/03/21 08/06/22 History Mcg = 1000 Iu)] Tiotropium 2.5 Mcg/Puff [Spiriva 2 puff INHALATION RT-DAILY 08/03/21 08/06/22 History Respimat 2.5 Mcg] Metoprolol Tartrate [Lopressor] 12.5 mg PO BID 30 Days #60 tab 08/05/21 08/06/22 Rx Pantoprazole Sodium [Protonix] 40 mg PO BID #60 tab 08/07/21 08/06/22 Rx Furosemide [Lasix] 20 mg PO DAILY 11/30/21 08/06/22 History hydroCHLOROthiazide [Hydrodiuril] 25 mg PO DAILY 11/30/21 08/06/22 History Aspirin 325 mg PO DAILY tab 01/06/22 08/06/22 Rx Rivaroxaban [Xarelto] 2.5 mg PO BID #60 tab 07/25/22 08/06/22 Rx Gabapentin [Neurontin] 400 mg PO TID 08/06/22 08/06/22 History predniSONE See Taper PO DIRECTED 08/06/22 08/06/22 History Allergies Allergy/AdvReac Type Severity Reaction Status Date / Time banana Allergy Abdominal Verified 08/06/22 12:20 Pain budesonide [From Pulmicort] Allergy Dyspnea Verified 08/06/22 12:20 Iodinated Contrast Media Allergy Anaphylaxis Verified 08/06/22 12:20 [Iodinated Contrast Media - IV Dye] penicillin G Allergy Rash/Hives Verified 08/06/22 12:20 codeine AdvReac Nausea & Verified 08/06/22 12:20 Vomiting levofloxacin AdvReac joint pain Verified 08/06/22 12:20 verapamil AdvReac HEADACHE Verified 08/06/22 12:20 Surgical - Exam Vital Signs Temp Pulse Resp BP Pulse Ox 101.3 F H 140 H 24 137/80 99 08/06/22 04:34 08/06/22 04:34 08/06/22 04:34 08/06/22 04:34 08/06/22 04:34 General appearance: The patient is alert, oriented, appears in no acute distress. HET: Head is normocephalic and atraumatic. Pupils are equal and reactive. Neck: Supple without lymphadenopathy. Trachea midline. Heart: Irregular. Lungs: Equal expansion, normal respiratory effort. Abdomen: Soft, nontender, nondistended. Extremities: Normal skin color and turgor. Left lower extremity with multiple surgical incisions on the medial aspect of leg. The left upper thigh with dehisced wound with minimal drainage, no redness surrounding. Left lower wound with the area dehisced, dry, no drainage, no redness. No palpable odor. Palpable bypass graft, with Doppler signal left DP. Neurological: No focal deficits. Strength and sensation are grossly intact. Results - Labs 08/06/22 04:39 08/07/22 05:16 Abnormal Lab Results - Last 24 Hours (Table) 08/06/22 08/06/22 08/06/22 Range/Units 07:26 09:59 09:59 Potassium (3.5-5.1) mmol/L Chloride (98-107) mmol/L Carbon Dioxide (22-30) mmol/L BUN (7-17) mg/dL Creatinine (0.52-1.04) mg/dL Glucose (74-99) mg/dL Calcium (8.4-10.2) mg/dL Troponin I 0.184 H* 0.131 H* (0.000-0.034) ng/mL Procalcitonin 8.01 H (0.02-0.09) ng/mL 08/07/22 Range/Units 05:16 Potassium 3.3 L (3.5-5.1) mmol/L Chloride 93 L (98-107) mmol/L Carbon Dioxide 38 H (22-30) mmol/L BUN 21 H (7-17) mg/dL Creatinine 0.36 L (0.52-1.04) mg/dL Glucose 71 L (74-99) mg/dL Calcium 7.9 L (8.4-10.2) mg/dL Troponin I (0.000-0.034) ng/mL Procalcitonin (0.02-0.09) ng/mL Microbiology - Last 24 Hours (Table) 08/06/22 09:59 Blood Culture - Final Blood Diabetes panel 08/07/22 Range/Units 05:16 Sodium 137 (137-145) mmol/L Potassium 3.3 L (3.5-5.1) mmol/L Chloride 93 L (98-107) mmol/L Carbon Dioxide 38 H (22-30) mmol/L BUN 21 H (7-17) mg/dL Creatinine 0.36 L (0.52-1.04) mg/dL Glucose 71 L (74-99) mg/dL Calcium 7.9 L (8.4-10.2) mg/dL Calcium panel 08/07/22 Range/Units 05:16 Calcium 7.9 L (8.4-10.2) mg/dL Pituitary panel 08/07/22 Range/Units 05:16 Sodium 137 (137-145) mmol/L Potassium 3.3 L (3.5-5.1) mmol/L Chloride 93 L (98-107) mmol/L Carbon Dioxide 38 H (22-30) mmol/L BUN 21 H (7-17) mg/dL Creatinine 0.36 L (0.52-1.04) mg/dL Glucose 71 L (74-99) mg/dL Calcium 7.9 L (8.4-10.2) mg/dL Adrenal panel 08/07/22 Range/Units 05:16 Sodium 137 (137-145) mmol/L Potassium 3.3 L (3.5-5.1) mmol/L Chloride 93 L (98-107) mmol/L Carbon Dioxide 38 H (22-30) mmol/L BUN 21 H (7-17) mg/dL Creatinine 0.36 L (0.52-1.04) mg/dL Glucose 71 L (74-99) mg/dL Calcium 7.9 L (8.4-10.2) mg/dL Assessment and Plan Assessment: 1. COPD exacerbation 2. CHF exacerbation 3. Recent left lower extremity revascularization, with open wounds 4. Peripheral arterial disease 5. Atrial fibrillation Plan: 1. Continue symptomatic and supportive care 2. Wet-to-dry dressings left lower extremity, no concerns for infection. 3. Local wound care per recommendations from wound care clinic, patient has been following outpatient 4. No indication for any vascular surgical intervention 5. Continue medical management per medical team Thank you for this consultation, we will continue to follow. The impression and plan of care has been dictated as directed. Dr. Dacosta I performed a history and examination of this patient, discussed the same with the dictator. I agree with the dictator's note ,documented as a scribe. Any additional findings or plans will be noted.
--- NOTE | 2022-08-07 11:45 | P.CONS ---
History of Present Illness - Reason for Consult Consult date: 08/07/22 wound care - History of Present Illness This is a 67-year-old female who underwent a intervention with Dr. Garcia who has nonhealing ulcerations to the left medial thigh in the left medial calf. Patient has been utilizing a wet to dry dressing to the site. She has home care who comes in Sunday and Sunday to change the dressings. She past medical history significant for atrial fibrillation, COPD, GERD, hyperlipidemia, peripheral vascular disease and breast cancer with radiation. Left medial thigh ulceration measures approximately 2 x 2 x 0.5 was significant amount of slough and nonviable tissue present. Patient had minimal granulation noted. No tunneling or undermining noted. The wound edges are attached to the wound base. The left medial calf ulceration measures approximately 5 x 1.5 x 0.3 cm with significant amount of eschar Slough and nonviable tissue minimal granulation noted. No tunneling or undermining noted. Review Of Systems: Constitutional: No fever, no chills, no night sweats. No weight change. No weakness, fatigue or lethargy. No daytime sleepiness. Integumentary:reports wounds, no lesions. No rash or pruritus. No unusual bruising. No change in hair or nails. Physical exam: General Appearance: Alert, cooperative, no distress, appears stated age. Skin: See HPI all other Skin color, texture, tugor normal, no rashes or lesions. Neurologic: Alert oriented x3 Assessment: 1. Atherosclerosis of left lower extremity with ulceration to left side 2. Arthrosclerosis to left lower extremity with ulceration to left calf 3. Nonhealing ulceration with fat layer exposure left thigh 4. Nonhealing ulceration with fat layer exposure left calf Plan: 1. Apply Santyl, saline moistened gauze, dry gauze, rolled gauze and secure with paper tape. Change daily. Patient from benefit from advanced wound care and wound care setting. Patient is agreeable to an appointment. We will be happy to see her in the wound care center. Thank you for the consultation any questions to contact the wound care center DNP note has been reviewed and discussed with Dr. Mina and the impression and plan of care has been directed as dictated. Past Medical History Past Medical History: Atrial Fibrillation, Cancer, COPD, GERD/Reflux, Hyperl ipidemia, Pneumonia, Respiratory Disorder, Vascular Disorder Additional Past Medical History / Comment(s): wound left leg-following wound care w/ Dr Osullivan, L upper lobe nodule being monitored, home oxygen at 2L/CONTINOUS, PVD, osteoporosis, constipation. 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 Past Anesthesia/Blood Transfusion Reactions: Previous Problems w/ Anesthesia, Blood Transfusion Reaction Additional Past Anesthesia/Blood Transfusion Reaction / Comm: SLOW TO WAKE UP. had transfusion in Jan 2022-had reaction dyspnea,tachypnea,nausea Past Psychological History: Anxiety Smoking Status: Never smoker - Past Family History Father Family Medical History: Cancer Additional Family Medical History / Comment(s): LUNG CANCER. Mother Family Medical History: Cancer Additional Family Medical History / Comment(s): BREAST CANCER. Medications and Allergies Home Medications Medication Instructions Recorded Confirmed Type Hydroxychloroquine Sulfate 200 mg PO BID 03/29/15 08/06/22 History [Plaquenil] Fluticasone Propion/Salmeterol 1 puff INHALATION RT-BID 05/31/16 08/06/22 History [Advair 500-50 Diskus] Gabapentin [Neurontin] 300 mg PO BID 04/07/19 08/06/22 History Levalbuterol Hfa Inhaler [Xopenex 1 puff INHALATION RT-Q6H PRN 04/07/19 08/06/22 History Hfa Inhaler] Calcium Carbonate [Calcium] 1,200 mg PO DAILY 04/29/19 08/06/22 History Letrozole [Femara] 2.5 mg PO DAILY 10/23/19 08/06/22 History Albuterol Nebulized [Ventolin 2.5 mg INHALATION RT-QID PRN 11/04/20 08/06/22 History Nebulized] Docusate [Colace] 100 mg PO DAILY 01/09/21 08/06/22 History buPROPion HCL [Wellbutrin SR] 100 mg PO DAILY 01/09/21 08/06/22 History Atorvastatin [Lipitor] 80 mg PO HS #90 tab 07/29/21 08/06/22 Rx ALPRAZolam [Xanax] 0.25 mg PO BID PRN 08/03/21 08/06/22 History Cholecalciferol [Vitamin D3 (25 50 mcg PO DAILY 08/03/21 08/06/22 History Mcg = 1000 Iu)] Tiotropium 2.5 Mcg/Puff [Spiriva 2 puff INHALATION RT-DAILY 08/03/21 08/06/22 History Respimat 2.5 Mcg] Metoprolol Tartrate [Lopressor] 12.5 mg PO BID 30 Days #60 tab 08/05/21 08/06/22 Rx Pantoprazole Sodium [Protonix] 40 mg PO BID #60 tab 08/07/21 08/06/22 Rx Furosemide [Lasix] 20 mg PO DAILY 11/30/21 08/06/22 History hydroCHLOROthiazide [Hydrodiuril] 25 mg PO DAILY 11/30/21 08/06/22 History Aspirin 325 mg PO DAILY tab 01/06/22 08/06/22 Rx Rivaroxaban [Xarelto] 2.5 mg PO BID #60 tab 07/25/22 08/06/22 Rx Gabapentin [Neurontin] 400 mg PO TID 08/06/22 08/06/22 History predniSONE See Taper PO DIRECTED 08/06/22 08/06/22 History Allergies Allergy/AdvReac Type Severity Reaction Status Date / Time banana Allergy Abdominal Verified 08/06/22 12:20 Pain budesonide [From Pulmicort] Allergy Dyspnea Verified 08/06/22 12:20 Iodinated Contrast Media Allergy Anaphylaxis Verified 08/06/22 12:20 [Iodinated Contrast Media - IV Dye] penicillin G Allergy Rash/Hives Verified 08/06/22 12:20 codeine AdvReac Nausea & Verified 08/06/22 12:20 Vomiting levofloxacin AdvReac joint pain Verified 08/06/22 12:20 verapamil AdvReac HEADACHE Verified 08/06/22 12:20 Physical Exam Vitals: Vital Signs Temp Pulse Pulse Resp BP BP BP 08/07/22 04:00 97.9 F 63 17 105/53 08/07/22 02:00 18 08/06/22 23:55 62 18 74/50 78/46 08/06/22 20:00 98.1 F 78 18 107/55 08/06/22 16:20 97.8 F 76 19 92/51 08/06/22 14:58 74 18 83/45 08/06/22 14:14 72 18 88/42 08/06/22 13:00 78 18 92/48 Pulse Ox 08/07/22 04:00 95 08/07/22 02:00 08/06/22 23:55 98 08/06/22 20:00 100 08/06/22 16:20 99 08/06/22 14:58 100 08/06/22 14:14 08/06/22 13:00 99 Intake and Output 08/06/22 08/07/22 08/07/22 22:59 06:59 14:59 Intake Total 118 Balance 118 Intake: Oral 118 Other: Voiding Method Bedpan Bedpan Weight 56.699 kg 52.6 kg Results CBC & Chem 7: 08/06/22 04:39 08/07/22 05:16 Labs: Abnormal Lab Results - Last 24 Hours (Table) 08/06/22 08/07/22 Range/Units 09:59 05:16 Potassium 3.3 L (3.5-5.1) mmol/L Chloride 93 L (98-107) mmol/L Carbon Dioxide 38 H (22-30) mmol/L BUN 21 H (7-17) mg/dL Creatinine 0.36 L (0.52-1.04) mg/dL Glucose 71 L (74-99) mg/dL Calcium 7.9 L (8.4-10.2) mg/dL Procalcitonin 8.01 H (0.02-0.09) ng/mL Microbiology - Last 24 Hours (Table) 08/06/22 09:59 Blood Culture Gram Stain - Preliminary Blood Blood Culture - Preliminary Pseudomonas aeruginosa 08/06/22 09:59 Blood Culture - Final Blood Assessment and Plan (1) Atherosclerosis of left lower extremity with ulceration of calf Current Visit: Yes Status: Acute Code(s): I70.242 - ATHSCL [place] ARTERIES OF LEFT LEG W ULCERATION OF CALF SNOMED Code(s): 34258758 (2) Atherosclerosis of left lower extremity with ulceration of thigh Current Visit: Yes Status: Acute Code(s): I70.241 - ATHSCL [place] ARTERIES OF LEFT LEG W ULCERATION OF THIGH SNOMED Code(s): 62442688 (3) Non-pressure chronic ulcer of left thigh with fat layer exposed Current Visit: Yes Status: Acute Code(s): L97.122 - NON-PRESSURE CHRONIC ULCER OF LEFT THIGH W FAT LAYER EXPOSED SNOMED Code(s): 52029606198408283 (4) Non-pressure chronic ulcer of left calf with fat layer exposed Current Visit: Yes Status: Acute Code(s): L97.222 - NON-PRESSURE CHRONIC ULCER OF LEFT CALF W FAT LAYER EXPOSED SNOMED Code(s): 73424656592061329
[2022-08-07] MEDS: guaiFENesin-DM 100-10MG/5ML 10 ML CUP PO SCH ×3 (12:03→23:41)
[2022-08-07] MEDS ORDERED: ALBUTEROL NEBULIZED 2.5 MG/3 ML INHALATION PRN (12:43)
[2022-08-07] MEDS ORDERED: ALBUTEROL HFA INHALER INHALATION STA (12:43)
[2022-08-07] MEDS: COLLAGENASE 250 UNIT/GM OINTMENT 30 GM TUBE TOPICAL SCH (12:50)
--- NOTE | 2022-08-07 12:51 | P.PN ---
Subjective 67-year-old female patient; past medical history significant for lower extremities peripheral arterial disease as well as severe COPD and chronic hy poxic respiratory failure on oxygen and also hypertension and dyslipidemia and history of multifocal atrial tachycardia, presented to the hospital complaining of shortness of breath. The patient does have a baseline shortness of breath and she is on oxygen continuously at 2 L. For the last few days she has been experiencing increasing in the shortness of breath associated according to her and her with fever and cough productive of whitish sputum. Beside that she developed bilateral lower extremities edema. No symptoms of any chest pain or chest discomfort or dizziness or lightheadedness but she has been experiencing symptoms of heart racing and fluttering was no presyncope or syn cope. The patient and her called ambulance and the patient was brought to the emergency department for further evaluation. During this admission she underwent a workup including an EKG showing what it seems to be multifocal atrial tachycardia with differential diagnosis of atrial fibrillation and also she underwent cardiac enzymes showed mildly abnormal troponin. The chest x-ray showed findings consistent with CHF. The rest of the blood work came in to be unremarkable. On examination she was in mild respiratory distress. She was also coughing during the examination. She does have bilateral expiratory wheezing and mild bilateral lower except his edema. Reviewing the vital signs revealed marginally low blood pressure with systolic pressure in the 90s. Currently she is on Cardizem IV and she is also on Lasix IV. 08/07/2022 This is a pleasant 67 years old female with multiple medical problems who was admitted initially because of dyspnea found to have acute CHF exacerbation and also she has evidence of bilateral pneumonia, she had a fever of 101.3 on admission. She still feels generally weak and tired, mildly tachypneic. Been followed by cardiology and infectious disease dating with positive blood culture for pseudomonas. And covered with abdomen Lasix 20 mg, IV Zosyn. Also she has history of COPD with chronic hypoxic respiratory failure on 2 L of oxygen at home, currently she is using before liters per minute. She has some evidence of diminished air entry in both sides under going to start prednisone 40 mg daily. She is on home dose of 0.5 mg twice a day for paroxysmal atrial fibrillation. Also she is on aspirin 325 mg. also patient follow up with Dr. Curran reported recent revascularizations surgery for his left lower extremity vascular disease, she still Dr. Curran last week and was doing well, she supposed to see him today so he was consulted Active Medications Generic Name Dose Route Start Last Admin Trade Name Freq PRN Reason Stop Dose Admin Hydrocodone Bitart/Acetaminophen 1 each 08/06/22 06:11 08/07/22 06:11 Hydrocodone/Apap 5-325mg 1 Each Tab PO 1 each Q6HR PRN Administration Pain Scale 6 to 10 Albuterol Sulfate 2 puff 08/06/22 06:11 08/07/22 08:48 Albuterol Hfa Inhaler INHALATION 2 puff RT-Q6H PRN Administration Shortness Of Breath Alprazolam 0.25 mg 08/06/22 06:11 Alprazolam 0.25 Mg Tab PO BID PRN Anxiety Aspirin 81 mg 08/08/22 09:00 Aspirin 81 Mg PO DAILY PAO Atorvastatin Calcium 80 mg 08/06/22 21:00 08/06/22 20:07 Atorvastatin 80 Mg Tab PO 80 mg HS PAO Administration Cholecalciferol 50 mcg 08/06/22 09:00 08/07/22 08:51 Cholecalciferol 25 Mcg (1000 Iu) Tablet PO 50 mcg DAILY PAO Administration Collagenase 1 applic 08/07/22 11:45 Collagenase 250 Unit/Gm Ointment 30 Gm Tube TOPICAL DAILY [facility] Protocol Diltiazem HCl 30 mg 08/06/22 16:00 08/07/22 08:51 Diltiazem Oral 30 Mg Tab PO 30 mg TID PAO Administration Docusate Sodium 100 mg 08/06/22 09:00 08/07/22 08:51 Docusate 100 Mg Cap PO 100 mg DAILY PAO Administration Furosemide 20 mg 08/06/22 12:00 08/07/22 12:02 Furosemide 10 Mg/Ml 2 Ml Vial IV 20 mg Q12H PAO Administration Gabapentin 300 mg 08/06/22 09:00 08/07/22 08:51 Gabapentin 300 Mg Cap PO 300 mg BID PAO Administration Guaifenesin/Dextromethorphan 10 ml 08/07/22 12:00 08/07/22 12:03 Guaifenesin-Dm 100-10mg/5ml 10 Ml Cup PO 08/10/22 12:01 10 ml Q6HR PAO Administration Hydroxychloroquine Sulfate 200 mg 08/06/22 09:00 08/07/22 08:50 Hydroxychloroquine Sulfate 200 Mg Tab PO 200 mg BID PAO Administration Sodium Chloride 1,000 mls @ 20 mls/hr 08/06/22 06:15 08/07/22 06:42 Saline 0.9% IV Not Given .Q24H PAO Piperacillin Sod/Tazobactam 100 mls @ 25 mls/hr 08/06/22 08:00 08/07/22 08:48 Sod 3.375 gm/ Sodium Chloride IVPB 25 mls/hr Q8HR PAO Administration Protocol Letrozole 2.5 mg 08/06/22 09:00 08/07/22 08:51 Letrozole 2.5 Mg Tab PO 2.5 mg DAILY PAO Administration Metoprolol Tartrate 25 mg 08/06/22 21:00 08/07/22 08:51 Metoprolol Tartrate 25 Mg Tab PO 25 mg BID PAO Administration Miscellaneous Information 1 each 08/07/22 08:08 Potassium Replacement Protocol 1 Each Misc MISCELLANE DAILY PRN Per Protocol Protocol Non-Formulary Medication 1 puff 08/06/22 08:00 08/07/22 08:49 Fluticasone Propion/Salmeterol [Advair 500-50 Diskus] INHALATION Not Given RT-BID PAO Pantoprazole Sodium 40 mg 08/06/22 07:30 08/07/22 05:37 Pantoprazole 40 Mg Tablet PO 40 mg AC-BID PAO Administration Prednisone 40 mg 08/07/22 13:00 Prednisone 20 Mg Tab PO DAILY PAO Rivaroxaban 2.5 mg 08/06/22 09:00 08/07/22 08:51 Rivaroxaban 2.5 Mg Tablet PO 2.5 mg BID PAO Administration Protocol Tiotropium [place] 2 puff 08/06/22 08:00 08/07/22 08:48 Tiotropium 2.5 Mcg Inhaler INHALATION 2 puff RT-DAILY PAO Administration Objective - Vital Signs Vital signs: Vital Signs Temp 97.9 F 08/07/22 04:00 Pulse 63 08/07/22 04:00 Resp 17 08/07/22 04:00 BP 105/53 08/07/22 04:00 Pulse Ox 95 08/07/22 04:00 FiO2 Intake & Output 08/06/22 08/07/22 08/07/22 18:59 06:59 18:59 Intake Total 118 Balance 118 Weight 56.699 kg 52.6 kg Intake: Oral 118 Other: Voiding Method Bedpan - Exam -GENERAL: The patient is alert and oriented x3, not in any acute distress. Well developed, well nourished. Generally weak HEENT: Pupils are round and equally reacting to light. EOMI. No scleral icterus. No conjunctival pallor. Normocephalic, atraumatic. No pharyngeal erythema. No thyromegaly. CARDIOVASCULAR: S1 and S2 present. No murmurs, rubs, or gallops. -PULMONARY: Chest is clear to auscultation, no wheezing or crackles. Decreased air entry on both sides ABDOMEN: Soft, nontender, nondistended, normoactive bowel sounds. No palpable organomegaly. MUSCULOSKELETAL: No joint swelling or deformity. -EXTREMITIES: No cyanosis, clubbing, or pedal edema. Open wound on the left leg NEUROLOGICAL: Gross neurological examination did not reveal any focal deficits. SKIN: No rashes. no petechiae. - Labs CBC & Chem 7: 08/06/22 04:39 08/07/22 05:16 Labs: Abnormal Lab Results - Last 24 Hours (Table) 08/06/22 08/07/22 Range/Units 09:59 05:16 Potassium 3.3 L (3.5-5.1) mmol/L Chloride 93 L (98-107) mmol/L Carbon Dioxide 38 H (22-30) mmol/L BUN 21 H (7-17) mg/dL Creatinine 0.36 L (0.52-1.04) mg/dL Glucose 71 L (74-99) mg/dL Calcium 7.9 L (8.4-10.2) mg/dL Procalcitonin 8.01 H (0.02-0.09) ng/mL Microbiology - Last 24 Hours (Table) 08/06/22 09:59 Blood Culture Gram Stain - Preliminary Blood Blood Culture - Preliminary Pseudomonas aeruginosa 08/06/22 09:59 Blood Culture - Final Blood Assessment and Plan Assessment: Bilateral pneumonia Pseudomonas bacteremia Acute CHF exacerbation Paroxysmal atrial fibrillation's with elevated troponin Acute COPD exacerbation Acute on chronic hypoxic respiratory failure Cyanosis present on admission with fever and leukocytosis Peripheral vascular disease status post recent revascularization of the left lower extremity with open wound Plan: Continue with IV Lasix Continue with Zosyn Continue with Xeralto Add prednisone and breathing treatment Cardiology, vascular surgeon and infectious disease consult Labs and medication were reviewed.. Continue same treatment. Continue with symptomatic treatment. Resume home medication. Monitor labs and vitals. DVT and GI prophylaxis. Further recommendations as per clinical course of the patient DVT prophylaxis: Xeralto GI Prophylaxis: Ppi PT/OT: Pending Prognosis is guarded
--- NOTE | 2022-08-07 13:15 | P.PN ---
Subjective Progress Note Date: 08/07/22 HISTORY OF PRESENT ILLNESS: The patient is a pleasant 67-year-old female patient who is known to our service from before with a past medical history significant for lower extremities peripheral arterial disease as well as severe COPD and chronic hypoxic respiratory failure on oxygen and also hypertension and dyslipidemia and history of multifocal atrial tachycardia. The patient presented to the hospital complaining of shortness of breath. The patient does have a baseline shortness of breath and she is on oxygen continuously at 2 L. For the last few days she has been experiencing increasing in the shortness of breath associated according to her and her with fever and cough productive of whitish sputum. Beside that she developed bilateral lower extremities edema. No symptoms of any chest pain or chest discomfort or dizziness or lightheadedness but she has been experiencing symptoms of heart racing and fluttering was no presyncope or syncope. The patient and her called ambulance and the patient was brought to the emergency department for further evaluation. She is known to have advanced COPD. Also she is known to have severe lower extremities PAD with a prior stenting of bilateral common iliacs and external iliacs and subsequently few weeks ago she underwent left femoral and left profunda endarterectomy with left femoral to tibial peroneal trunk bypass. She still does have a dressing on the left leg above the left knee because the incision has been healing very slowly. During this admission she underwent a workup including an EKG showing what it seems to be multifocal atrial tachycardia with differential diagnosis of atrial fibrillation and also she underwent cardiac enzymes showed mildly abnormal troponin. The chest x-ray showed findings consistent with CHF. The rest of the blood work came in to be unremarkable. On examination she was in mild respiratory distress. She was also coughing during the examination. She does have bilateral expiratory wheezing and mild bilateral lower except his edema. Reviewing the vital signs revealed marginally low blood pressure with systolic pressure in the 90s. Currently she is on Cardizem IV and she is also on Lasix IV. 08/07/2022 Patient examined this morning at the bedside. She denies chest pain or pressure. She reports shortness of breath this morning. She states that her shortness of breath got worse overnight and they had to increase her oxygen. The patient remains on Lasix 20 mg IV every 12 hours. Telemetry reveals sinus mechanism with a heart rate in the 60s. PHYSICAL EXAM: VITAL SIGNS: Reviewed. GENERAL: Well-developed in no acute distress. NECK: Supple. No JVD or thyromegaly LUNGS: Respirations even and unlabored. Lungs diminished with rhonchi and wheezing bilaterally HEART: Regular rate and rhythm. S1 and S2 heard. EXTREMITIES: Normal range of motion. No clubbing or cyanosis. Peripheral pulses intact. Trace lower extremity edema ASSESSMENT: Shortness of breath Acute COPD exacerbation Bilateral pneumonia Acute on chronic heart failure with preserved ejection fraction, EF 50-55% in 2020, repeat echo pending Multifocal atrial tachycardia, currently maintaining sinus mechanism Hypertension Hyperlipidemia Peripheral arterial disease Recent left lower extremity revascularization with open wounds PLAN: Continue current cardiac medications 2-D echo ordered. Await results Continue IV Lasix 20 mg every 12 hours Daily weights, accurate I&O, and monitoring of kidney function Patient to follow-up post discharge with Dr. Stewart Further recommendations pending patient's course Nurse practitioner note has been reviewed by physician. Signing provider agrees with the documented findings, assessment, and plan of care. Objective - Vital Signs Vital signs: Vital Signs Temp 97.9 F 08/07/22 04:00 Pulse 63 08/07/22 04:00 Resp 17 08/07/22 04:00 BP 105/53 08/07/22 04:00 Pulse Ox 95 08/07/22 04:00 FiO2 Intake & Output 08/06/22 08/07/22 08/07/22 18:59 06:59 18:59 Intake Total 118 Balance 118 Weight 56.699 kg 52.6 kg 52.6 kg Intake: Oral 118 Other: Voiding Method Bedpan - Labs CBC & Chem 7: 08/06/22 04:39 08/07/22 05:16 Labs: Abnormal Lab Results - Last 24 Hours (Table) 08/06/22 08/07/22 Range/Units 09:59 05:16 Potassium 3.3 L (3.5-5.1) mmol/L Chloride 93 L (98-107) mmol/L Carbon Dioxide 38 H (22-30) mmol/L BUN 21 H (7-17) mg/dL Creatinine 0.36 L (0.52-1.04) mg/dL Glucose 71 L (74-99) mg/dL Calcium 7.9 L (8.4-10.2) mg/dL Procalcitonin 8.01 H (0.02-0.09) ng/mL Microbiology - Last 24 Hours (Table) 08/06/22 09:59 Blood Culture Gram Stain - Preliminary Blood Blood Culture - Preliminary Pseudomonas aeruginosa 08/06/22 09:59 Blood Culture - Final Blood
--- NOTE | 2022-08-07 15:03 | CA ---
Transthoracic Echo Report Name: Franca Betts Age: 67 Gender: F : 1955 Exam Date: 08/07/2022 10:18 Exam Location: [facility] Ht (in): 61 Wt (lb): 115 Ordering Physician: Mckinley Stewart MD ([id number]) Attending/Referring Phys: Race Steward Gracy Castle RDCS Procedure CPT: Indications: chf Cardiac Hx: Technical Quality: Fair Contrast 1: Total Dose (mL): Contrast 2: Total Dose (mL): MEASUREMENTS (Male / Female) Normal Values 2D ECHO LV Diastolic Diameter PLAX 4.1 cm 4.2 - 5.9 / 3.9 - 5.3 cm LV Systolic Diameter PLAX 2.8 cm IVS Diastolic Thickness 1.1 cm 0.6 - 1.0 / 0.6 - 0.9 cm LVPW Diastolic Thickness 1.4 cm 0.6 - 1.0 / 0.6 - 0.9 cm LV Relative Wall Thickness 0.6 RV Internal Dim ED PLAX 2.1 cm LA Volume 72.4 cm??? 18 - 58 / 22 - 52 cm??? M-MODE Aortic Root Diameter MM 2.3 cm LA Systolic Diameter MM 2.8 cm LA Ao Ratio MM 1.2 AV Cusp Separation MM 1.5 cm DOPPLER AV Peak Velocity 170.5 cm/s AV Peak Gradient 11.6 mmHg MV Area PHT 4.4 cm??? MR Peak Velocity 399.4 cm/s MR Peak Gradient 63.8 mmHg Mitral E Point Velocity 96.6 cm/s Mitral A Point Velocity 29.8 cm/s Mitral E to A Ratio 3.2 MV Deceleration Time 173.2 ms TR Peak Velocity 305.8 cm/s TR Peak Gradient 37.4 mmHg Right Atrial Pressure 8.0 mmHg Pulmonary Artery Systolic Pressu 45.4 mmHg Right Ventricular Systolic Press 45.4 mmHg FINDINGS Left Ventricle Mildly increased septal wall thickness. Moderately increased posterior wall thickness. Grade 2 diastolic dysfunction. Left ventricular cavity size normal. Left ventricular ejection fraction is estimated at 55-60%. Right Ventricle Normal right ventricular size.normal right ventricular global systolic function. Moderate pulmonary hypertension. Right Atrium Normal right atrial size. Left Atrium Moderately increased left atrial volume. Mitral Valve Mitral valve thickened. Moderate mitral regurgitation. Aortic Valve Trileaflet aortic valve. Tricuspid Valve Tida-wa-tkoolgel tricuspid regurgitation. Pulmonic Valve Mild pulmonic regurgitation. Pericardium No pericardial effusion. Pleural effusion measuring 5.5cm. Aorta Normal size aortic root and proximal ascending aorta. CONCLUSIONS Mild to moderately increased left ventricular wall thickness Left ventricular ejection fraction 55-60% RVSP 45 Moderate mitral regurgitation Mild to moderate tricuspid regurgitation No pericardial effusion Pleural effusion noted. Previewed by: Dr. You Lamar DO (Electronically Signed) Final Date: 07 August 2022 15:02
[2022-08-07] MEDS: predniSONE 20 MG TAB PO SCH (15:05)
--- NOTE | 2022-08-07 21:09 | P.CONS ---
History of Present Illness - Reason for Consult Consult date: 08/07/22 - History of Present Illness Patient is a 67-year-old female with a past medical history significant for hypertension GERD atrial fibrillation peripheral arterial disease left breast cancer presenting to the ER yesterday morning for evaluation of increasing shortness of breath symptoms started after dinner patient mention she will try to Lye flat however the bleeding continued get worse as the patient was brought into the ER patient on presentation the hospital did have a fever of 101.3 degrees following height patient is currently on 4 L nasal cannula patient did have white count 17.2 with a left shift kidney function was normal troponin is not elevated procalcitonin is elevated influenza RSV and COVID testing was negative patient did have a chest x-ray congestive heart failure with pleural fluid patient also have a left lower extremity chronic wound and recently underwent left femoral endarterectomy with removal of the femoral and profunda stent along with left femoral and superficial femoral art heather angioplasty procedure was completed on 07/22/2022 apparently the patient was noticed to have some purulent drainage from the left lower extremity wound 40 the patient has been evaluated by vascular surgery per their note left upper thigh wound has dehisced with minimal drainage no redness left lower leg wound with area of dehiscence but no redness no local cultures were obtained RN refused to change the dressing as it only been changed 3 times this morning with a blood cultures coming back positive with a Pseudomonas that has prompted this infectious disease consultation, patient has been complaining of pain to the left lower extremity wound which is mostly dull aching to sharp 6-7 out of 10 no radiation did have minimal drainage as mentioned earlier Past Medical History Past Medical History: Atrial Fibrillation, Cancer, COPD, GERD/Reflux, Hype rlipidemia, Pneumonia, Respiratory Disorder, Vascular Disorder Additional Past Medical History / Comment(s): wound left leg-following wound care w/ Libby Pacheco upper lobe nodule being monitored, home oxygen at 2L/CONTINOUS, PVD, osteoporosis, constipation. LEFT BREAST CANCER received radiation 2019 History of Any Multi-Drug Resistant Organisms: None Reported Past Surgical History: Breast Surgery, Cholecystectomy, Hysterectomy, Orthopedic Surgery Additional Past Surgical History / Comment(s): 07/29/21 L iliac percutaneous balloon angioplasty with stent/atherectomy/PTBA L femoral artery/TRAFFIC CLERK R femoral artery/R iliac stent, abdominal aortagram, bronchoscopies with biopsy, bilateral wrist carpal tunnel, TMJ surgery, left neck cyst removed, colonoscopy, left breast lumpectomy. Past Anesthesia/Blood Transfusion Reactions: Previous Problems w/ Anesthesia, Blood Transfusion Reaction Additional Past Anesthesia/Blood Transfusion Reaction / Comm: SLOW TO WAKE UP. had transfusion in Jan 2022-had reaction dyspnea,tachypnea,nausea Past Psychological History: Anxiety Smoking Status: Never smoker - Past Family History Father Family Medical History: Cancer Additional Family Medical History / Comment(s): LUNG CANCER. Mother Family Medical History: Cancer Additional Family Medical History / Comment(s): BREAST CANCER. Medications and Allergies Home Medications Medication Instructions Recorded Confirmed Type Hydroxychloroquine Sulfate 200 mg PO BID 03/29/15 08/06/22 History [Plaquenil] Fluticasone Propion/Salmeterol 1 puff INHALATION RT-BID 05/31/16 08/06/22 History [Advair 500-50 Diskus] Gabapentin [Neurontin] 300 mg PO BID 04/07/19 08/06/22 History Levalbuterol Hfa Inhaler [Xopenex 1 puff INHALATION RT-Q6H PRN 04/07/19 08/06/22 History Hfa Inhaler] Calcium Carbonate [Calcium] 1,200 mg PO DAILY 04/29/19 08/06/22 History Letrozole [Femara] 2.5 mg PO DAILY 10/23/19 08/06/22 History Albuterol Nebulized [Ventolin 2.5 mg INHALATION RT-QID PRN 11/04/20 08/06/22 History Nebulized] Docusate [Colace] 100 mg PO DAILY 01/09/21 08/06/22 History buPROPion HCL [Wellbutrin SR] 100 mg PO DAILY 01/09/21 08/06/22 History Atorvastatin [Lipitor] 80 mg PO HS #90 tab 07/29/21 08/06/22 Rx ALPRAZolam [Xanax] 0.25 mg PO BID PRN 08/03/21 08/06/22 History Cholecalciferol [Vitamin D3 (25 50 mcg PO DAILY 08/03/21 08/06/22 History Mcg = 1000 Iu)] Tiotropium 2.5 Mcg/Puff [Spiriva 2 puff INHALATION RT-DAILY 08/03/21 08/06/22 History Respimat 2.5 Mcg] Metoprolol Tartrate [Lopressor] 12.5 mg PO BID 30 Days #60 tab 08/05/21 08/06/22 Rx Pantoprazole Sodium [Protonix] 40 mg PO BID #60 tab 08/07/21 08/06/22 Rx Furosemide [Lasix] 20 mg PO DAILY 11/30/21 08/06/22 History hydroCHLOROthiazide [Hydrodiuril] 25 mg PO DAILY 11/30/21 08/06/22 History Aspirin 325 mg PO DAILY tab 01/06/22 08/06/22 Rx Rivaroxaban [Xarelto] 2.5 mg PO BID #60 tab 07/25/22 08/06/22 Rx Gabapentin [Neurontin] 400 mg PO TID 08/06/22 08/06/22 History predniSONE See Taper PO DIRECTED 08/06/22 08/06/22 History Allergies Allergy/AdvReac Type Severity Reaction Status Date / Time banana Allergy Abdominal Verified 08/06/22 12:20 Pain budesonide [From Pulmicort] Allergy Dyspnea Verified 08/06/22 12:20 Iodinated Contrast Media Allergy Anaphylaxis Verified 08/06/22 12:20 [Iodinated Contrast Media - IV Dye] penicillin G Allergy Rash/Hives Verified 08/06/22 12:20 codeine AdvReac Nausea & Verified 08/06/22 12:20 Vomiting levofloxacin AdvReac joint pain Verified 08/06/22 12:20 verapamil AdvReac HEADACHE Verified 08/06/22 12:20 Physical Exam Vitals: Vital Signs Temp Pulse Resp BP BP Pulse Ox 08/07/22 12:05 97 F L 67 18 93/40 99 08/07/22 08:10 96 F L 67 18 101/94 99 08/07/22 04:00 97.9 F 63 17 105/53 95 08/07/22 02:00 18 08/06/22 23:55 62 18 74/50 78/46 98 08/06/22 20:00 98.1 F 78 18 107/55 100 08/06/22 16:20 97.8 F 76 19 92/51 99 Intake and Output 08/07/22 08/07/22 08/07/22 06:59 14:59 22:59 Output Total 300 Balance -300 Output: Urine 300 Other: Voiding Method Bedpan # Bowel Movements 1 Weight 52.6 kg 52.6 kg Results CBC & Chem 7: 08/06/22 04:39 08/07/22 15:14 Labs: Abnormal Lab Results - Last 24 Hours (Table) 08/06/22 08/07/22 Range/Units 09:59 05:16 Potassium 3.3 L (3.5-5.1) mmol/L Chloride 93 L (98-107) mmol/L Carbon Dioxide 38 H (22-30) mmol/L BUN 21 H (7-17) mg/dL Creatinine 0.36 L (0.52-1.04) mg/dL Glucose 71 L (74-99) mg/dL Calcium 7.9 L (8.4-10.2) mg/dL Procalcitonin 8.01 H (0.02-0.09) ng/mL Microbiology - Last 24 Hours (Table) 08/06/22 09:59 Blood Culture Gram Stain - Preliminary Blood Blood Culture - Preliminary Pseudomonas aeruginosa 08/06/22 09:59 Blood Culture - Final Blood Assessment and Plan Plan: 1patient presented to hospital with sepsis in this patient who did a fever elevated white tachycardia and now with evidence of gram-negative bacteremia source questionably infected left lower extremity wound with a recent vascular procedure for PAD versus pneumonia however chest x-ray is most interstitial infiltrate although the patient did have elevated procalcitonin sputum cultures have been obtained also be followed, wound will be reevaluated at the time of dressing change tomorrow 2-blood cultures will be repeated document clearance of bacteremia 3-patient to continue with the Zosyn while waiting for sensitivity to finalize 4-local wound care per wound care team which has been consulted We will follow on clinical condition and cultures to further adjust medication if needed Thank you for this consultation we will follow the patient along with you Time with Patient: Greater than 30
[2022-08-07] MEDS: ATORVASTATIN 80 MG TAB PO SCH (21:47)
[2022-08-08] MEDS: HYDROcodone/APAP 5-325MG 1 EACH TAB PO PRN ×3 (05:59→20:21)
[2022-08-08] MEDS: guaiFENesin-DM 100-10MG/5ML 10 ML CUP PO SCH ×3 (06:00→16:43)
[2022-08-08] MEDS: PANTOPRAZOLE 40 MG TABLET PO SCH ×2 (06:00→16:43)
[2022-08-08] MEDS: SODIUM CHLORIDE 0.9% 1,000 ML IV SCH (08:53)
[2022-08-08] MEDS: HYDROXYCHLOROQUINE SULFATE 200 MG TAB PO SCH ×2 (08:54→20:19)
[2022-08-08] MEDS: METOPROLOL TARTRATE 25 MG TAB PO SCH ×2 (08:54→20:19)
[2022-08-08] MEDS: ASPIRIN 81 MG PO SCH (08:54)
[2022-08-08] MEDS: DILTIAZEM ORAL 30 MG TAB PO SCH ×3 (08:54→20:19)
[2022-08-08] MEDS: CHOLECALCIFEROL 25 MCG (1000 IU) TABLET PO SCH (08:55)
[2022-08-08] MEDS: GABAPENTIN 300 MG CAP PO SCH ×3 (08:55→20:18)
[2022-08-08] MEDS: LETROZOLE 2.5 MG TAB PO SCH (08:55)
[2022-08-08] MEDS: predniSONE 20 MG TAB PO SCH (08:55)
[2022-08-08] MEDS: DOCUSATE 100 MG CAP PO SCH (08:55)
[2022-08-08] MEDS: PIPERACILLIN-TAZOBACTAM 3.375 GM in SODIUM CHLORIDE 0.9% 100 ML IVPB SCH ×2 (08:58→16:43)
[2022-08-08] MEDS: RIVAROXABAN 2.5 MG TABLET PO SCH ×2 (08:58→20:19)
[2022-08-08] MEDS: TIOTROPIUM 2.5 MCG INHALER INHALATION SCH ×2 (09:18→09:21)
[2022-08-08] MEDS: NON FORMULARY DRUG (Fluticasone Propion/Salmeterol [Advair 500-50 Diskus] 1 EACH Blst.W.De INHALATION SCH ×3 (09:18→21:17)
[2022-08-08] MEDS: ALBUTEROL HFA INHALER INHALATION PRN (09:21)
--- NOTE | 2022-08-08 10:41 | P.PN ---
Subjective 67-year-old female patient; past medical history significant for lower extremities peripheral arterial disease as well as severe COPD and chronic hy poxic respiratory failure on oxygen and also hypertension and dyslipidemia and history of multifocal atrial tachycardia, presented to the hospital complaining of shortness of breath. The patient does have a baseline shortness of breath and she is on oxygen continuously at 2 L. For the last few days she has been experiencing increasing in the shortness of breath associated according to her and her with fever and cough productive of whitish sputum. Beside that she developed bilateral lower extremities edema. No symptoms of any chest pain or chest discomfort or dizziness or lightheadedness but she has been experiencing symptoms of heart racing and fluttering was no presyncope or syn cope. The patient and her called ambulance and the patient was brought to the emergency department for further evaluation. During this admission she underwent a workup including an EKG showing what it seems to be multifocal atrial tachycardia with differential diagnosis of atrial fibrillation and also she underwent cardiac enzymes showed mildly abnormal troponin. The chest x-ray showed findings consistent with CHF. The rest of the blood work came in to be unremarkable. On examination she was in mild respiratory distress. She was also coughing during the examination. She does have bilateral expiratory wheezing and mild bilateral lower except his edema. Reviewing the vital signs revealed marginally low blood pressure with systolic pressure in the 90s. Currently she is on Cardizem IV and she is also on Lasix IV. 08/07/2022 This is a pleasant 67 years old female with multiple medical problems who was admitted initially because of dyspnea found to have acute CHF exacerbation and also she has evidence of bilateral pneumonia, she had a fever of 101.3 on admission. She still feels generally weak and tired, mildly tachypneic. Been followed by cardiology and infectious disease dating with positive blood culture for pseudomonas. And covered with abdomen Lasix 20 mg, IV Zosyn. Also she has history of COPD with chronic hypoxic respiratory failure on 2 L of oxygen at home, currently she is using before liters per minute. She has some evidence of diminished air entry in both sides under going to start prednisone 40 mg daily. She is on home dose of 0.5 mg twice a day for paroxysmal atrial fibrillation. Also she is on aspirin 325 mg. also patient follow up with Dr. Curran reported recent revascularizations surgery for his left lower extremity vascular disease, she still Dr. Curran last week and was doing well, she supposed to see him today so he was consulted 08/07/2022 Patient awake and alert, she still have little short of breath and tachypnea, however she feels better. Her cough feels better bleeding looks the same, she still have exertional dyspnea with walking. She still feels generally weak. States to have limited air entry on both lung sewell, no more fever and vitals are stable. Her abdomen Lasix switched to oral pills. Professor Of [employer] on the case and she was kept on Xarelto and metoprolol and Cardizem for her A. fib, Patient also have evidence with pseudomonas bacteremia, source could be pneumonia versus left lower extremity wound, culture is been followed closely. Patient is covered with Zosyn. Infectious disease team on the case. Objective - Vital Signs Vital signs: Vital Signs Temp 97.7 F 08/08/22 08:49 Pulse 65 08/08/22 08:49 Resp 18 08/08/22 08:49 BP 105/58 08/08/22 08:49 Pulse Ox 94 L 08/08/22 09:21 FiO2 Intake & Output 08/07/22 08/08/22 08/08/22 18:59 06:59 18:59 Output Total 600 Balance -600 Weight 52.6 kg 53.5 kg Output: Urine 600 Other: Voiding Method External Catheter # Voids 1 # Bowel Movements 1 1 - Exam -GENERAL: The patient is alert and oriented x3, not in any acute distress. Well developed, well nourished. Generally weak HEENT: Pupils are round and equally reacting to light. EOMI. No scleral icterus. No conjunctival pallor. Normocephalic, atraumatic. No pharyngeal erythema. No thyromegaly. CARDIOVASCULAR: S1 and S2 present. No murmurs, rubs, or gallops. -PULMONARY: Chest is clear to auscultation, no wheezing or crackles. Decreased air entry on both sides ABDOMEN: Soft, nontender, nondistended, normoactive bowel sounds. No palpable organomegaly. MUSCULOSKELETAL: No joint swelling or deformity. -EXTREMITIES: No cyanosis, clubbing, or pedal edema. Open wound on the left leg NEUROLOGICAL: Gross neurological examination did not reveal any focal deficits. SKIN: No rashes. no petechiae. - Labs CBC & Chem 7: 08/06/22 04:39 08/07/22 15:14 Labs: Microbiology - Last 24 Hours (Table) 08/07/22 12:06 Gram Stain - Preliminary Sputum Sputum Culture - Preliminary 08/06/22 09:59 Blood Culture Gram Stain - Preliminary Blood Blood Culture - Preliminary Pseudomonas aeruginosa Assessment and Plan Assessment: Bilateral pneumonia Pseudomonas bacteremia Acute CHF exacerbation Paroxysmal atrial fibrillation's with elevated troponin Acute COPD exacerbation Acute on chronic hypoxic respiratory failure Cyanosis present on admission with fever and leukocytosis Peripheral vascular disease status post recent revascularization of the left lower extremity with open wound Plan: Continue with Lasix which is switched to oral form Continue with Zosyn Continue with Xeralto Continue with prednisone and breathing treatment Cardiology, vascular surgeon and infectious disease consult Labs and medication were reviewed.. Continue same treatment. Continue with symptomatic treatment. Resume home medication. Monitor labs and vitals. DVT and GI prophylaxis. Further recommendations as per clinical course of the patient DVT prophylaxis: Xeralto GI Prophylaxis: Ppi PT/OT: Pending Prognosis is guarded
[2022-08-08 11:04] LABS: African American GFR (CKD) >90 (>60 ml/min/1.73 sqM); Anisocytosis Slight; Basophils % (A) 0 %; Blood Urea Nitrogen 27 mg/dL (7-17); Calcium 7.8 mg/dL (8.4-10.2); Chloride 96 mmol/L (98-107); Eosinophils % (A) 0 %; Glucose 142 mg/dL (74-99); HCT 28.8 % (34.0-46.0); Hypochromasia Moderate; Lymphocytes # (A) 0.4 k/uL (1.0-4.8); Lymphocytes % (A) 3 %; MCH 29.5 pg (25.0-35.0); MCHC 30.5 g/dL (31.0-37.0); MCV 96.7 fL (80.0-100.0); Macrocytosis Slight; Mean Platelet Volume 8.3; Monocytes # (A) 0.4 k/uL (0-1.0); Monocytes % (A) 3 %; Neutrophils # (A) 13.7 k/uL (1.3-7.7); Neutrophils % (A) 93 %; Non-African American GFR(CKD) >90 (>60 ml/min/1.73 sqM); Platelet Count 194 k/uL (150-450); Poikilocytosis Moderate; Potassium 4.3 mmol/L (3.5-5.1); RBC 2.98 m/uL (3.80-5.40); RDW 16.6 % (11.5-15.5); Sodium 139 mmol/L (137-145); WBC 14.7 k/uL (3.8-10.6)
[2022-08-08 11:10] LABS: Anion Gap 6 mmol/L; Carbon Dioxide 37 mmol/L (22-30)
[2022-08-08 11:11] LABS: HGB 8.8 gm/dL (11.4-16.0)
--- NOTE | 2022-08-08 11:52 | P.PN ---
Subjective Progress Note Date: 08/08/22 Principal diagnosis: Shortness of breath Patient was seen and examined today as a follow-up. She states she is very short of breath having a hard time breathing. She also states that she has some increased pain overnight in her left lower extremity from her knee down. She states that it is actually worse than prior to her surgery. This is a change from yesterday. She did have positive blood cultures for Pseudomonas aeruginosa and is currently on IV Zosyn. She has been afebrile. White count is trending down. Objective - Vital Signs Vital signs: Vital Signs Temp 97.7 F 08/08/22 08:49 Pulse 65 08/08/22 08:49 Resp 18 08/08/22 08:49 BP 105/58 08/08/22 08:49 Pulse Ox 98 08/08/22 08:49 FiO2 Intake & Output 08/07/22 08/08/22 08/08/22 18:59 06:59 18:59 Output Total 600 Balance -600 Weight 52.6 kg 53.5 kg Output: Urine 600 Other: Voiding Method External Catheter # Voids 1 # Bowel Movements 1 1 - Exam General appearance: The patient is alert, oriented, appears in no acute distress. HET: Head is normocephalic and atraumatic. Pupils are equal and reactive. Neck: Supple without lymphadenopathy. Trachea midline. Extremities: Left lower extremity with multiple surgical incisions on the medial aspect of leg. Left groin incision site with minimal drainage. The left upper thigh with dehisced wound with minimal drainage, no redness surrounding. Left lower wound with open wound dry, no drainage, no redness. No odor. Palpable bypass graft, with Doppler signal left PT and DP. Sensorimotor intact. Neurological: No focal deficits. - Labs CBC & Chem 7: 08/08/22 09:48 08/08/22 09:48 Labs: Microbiology - Last 24 Hours (Table) 08/07/22 12:06 Gram Stain - Preliminary Sputum Sputum Culture - Preliminary 08/06/22 09:59 Blood Culture Gram Stain - Preliminary Blood Blood Culture - Preliminary Pseudomonas aeruginosa Assessment and Plan Assessment: 1. COPD exacerbation 2. CHF exacerbation 3. Recent left lower extremity revascularization, with open wounds 4. Peripheral arterial disease 5. Atrial fibrillation Plan: 1. Continue symptomatic and supportive care 2. Continue local wound care per wound care clinic instructions 3. No indication for any vascular surgical intervention 4. Continue recommendations from infectious disease 5. Gabapentin increased to 300 mg 3 times a day 6. Continue medical management per medical team Thank you for this consultation. Follow-up with Dr. Garcia as scheduled. The impression and plan of care has been dictated as directed. Dr. Garcia I performed a history and examination of this patient, discussed the same with the dictator. I agree with the dictator's note ,documented as a scribe. Any additional findings or plans will be noted.
[2022-08-08] MEDS: COLLAGENASE 250 UNIT/GM OINTMENT 30 GM TUBE TOPICAL SCH (12:20)
--- NOTE | 2022-08-08 12:28 | P.PN ---
Subjective Progress Note Date: 08/08/22 HISTORY OF PRESENT ILLNESS: The patient is a pleasant 67-year-old female patient who is known to our service from before with a past medical history significant for lower extremities peripheral arterial disease as well as severe COPD and chronic hypoxic respiratory failure on oxygen and also hypertension and dyslipidemia and history of multifocal atrial tachycardia. The patient presented to the hospital complaining of shortness of breath. The patient does have a baseline shortness of breath and she is on oxygen continuously at 2 L. For the last few days she has been experiencing increasing in the shortness of breath associated according to her and her with fever and cough productive of whitish sputum. Beside that she developed bilateral lower extremities edema. No symptoms of any chest pain or chest discomfort or dizziness or lightheadedness but she has been experiencing symptoms of heart racing and fluttering was no presyncope or syncope. The patient and her called ambulance and the patient was brought to the emergency department for further evaluation. She is known to have advanced COPD. Also she is known to have severe lower extremities PAD with a prior stenting of bilateral common iliacs and external iliacs and subsequently few weeks ago she underwent left femoral and left profunda endarterectomy with left femoral to tibial peroneal trunk bypass. She still does have a dressing on the left leg above the left knee because the incision has been healing very slowly. During this admission she underwent a workup including an EKG showing what it seems to be multifocal atrial tachycardia with differential diagnosis of atrial fibrillation and also she underwent cardiac enzymes showed mildly abnormal troponin. The chest x-ray showed findings consistent with CHF. The rest of the blood work came in to be unremarkable. On examination she was in mild respiratory distress. She was also coughing during the examination. She does have bilateral expiratory wheezing and mild bilateral lower except his edema. Reviewing the vital signs revealed marginally low blood pressure with systolic pressure in the 90s. Currently she is on Cardizem IV and she is also on Lasix IV. 08/07/2022 Patient examined this morning at the bedside. She denies chest pain or pressure. She reports shortness of breath this morning. She states that her shortness of breath got worse overnight and they had to increase her oxygen. The patient remains on Lasix 20 mg IV every 12 hours. Telemetry reveals sinus mechanism with a heart rate in the 60s. 08/08/2022 Patient examined this morning at the bedside. Patient denies chest pain or pressure. She reports SOB. She remains on IV lasix. Blood pressure is stable. Echo reveals EF 55-60% PHYSICAL EXAM: VITAL SIGNS: Reviewed. GENERAL: Well-developed in no acute distress. NECK: Supple. No JVD or thyromegaly LUNGS: Respirations even and unlabored. Lungs diminished bilaterally HEART: Regular rate and rhythm. S1 and S2 heard. EXTREMITIES: Normal range of motion. No clubbing or cyanosis. Peripheral pulses intact. Trace lower extremity edema on the left. ASSESSMENT: Shortness of breath Acute COPD exacerbation Bilateral pneumonia Acute on chronic heart failure with preserved ejection fraction, EF 50-55% in 2020, repeat echo EF 55-60% Multifocal atrial tachycardia, currently maintaining sinus mechanism Hypertension Hyperlipidemia Peripheral arterial disease Recent left lower extremity revascularization with open wounds PLAN: Continue current cardiac medications Discontinue IV lasix. Resume oral lasix 20mg BID Patient to follow-up post discharge with Dr. Stewart Further recommendations pending patient's course Nurse practitioner note has been reviewed by physician. Signing provider agrees with the documented findings, assessment, and plan of care. Objective - Vital Signs Vital signs: Vital Signs Temp 97.7 F 08/08/22 08:49 Pulse 63 08/08/22 11:40 Resp 18 08/08/22 11:40 BP 104/58 08/08/22 11:40 Pulse Ox 99 08/08/22 11:40 FiO2 Intake & Output 08/07/22 08/08/22 08/08/22 18:59 06:59 18:59 Output Total 600 Balance -600 Weight 52.6 kg 53.5 kg Output: Urine 600 Other: Voiding Method External Catheter External Catheter # Voids 1 # Bowel Movements 1 1 - Labs CBC & Chem 7: 08/08/22 09:48 08/08/22 09:48 Labs: Abnormal Lab Results - Last 24 Hours (Table) 08/08/22 08/08/22 Range/Units 09:48 09:48 WBC 14.7 H (3.8-10.6) k/uL RBC 2.98 L (3.80-5.40) m/uL Hgb 8.8 L D (11.4-16.0) gm/dL Hct 28.8 L (34.0-46.0) % MCHC 30.5 L (31.0-37.0) g/dL RDW 16.6 H (11.5-15.5) % Neutrophils # 13.7 H (1.3-7.7) k/uL Lymphocytes # 0.4 L (1.0-4.8) k/uL Chloride 96 L (98-107) mmol/L Carbon Dioxide 37 H (22-30) mmol/L BUN 27 H (7-17) mg/dL Creatinine 0.49 L (0.52-1.04) mg/dL Glucose 142 H (74-99) mg/dL Calcium 7.8 L (8.4-10.2) mg/dL Microbiology - Last 24 Hours (Table) 08/07/22 12:06 Gram Stain - Preliminary Sputum Sputum Culture - Preliminary 08/06/22 09:59 Blood Culture Gram Stain - Preliminary Blood Blood Culture - Preliminary Pseudomonas aeruginosa
--- NOTE | 2022-08-08 12:52 | P.PN ---
Subjective Progress Note Date: 08/08/22 Principal diagnosis: Pseudomonas bacteremia Patient is a 67-year-old female with a past medical history significant for hypertension GERD atrial fibrillation peripheral arterial disease left breast cancer presenting to the ER for evaluation of increasing shortness of breath patient did have fever and elevated white count and recently did have a left lower extremity muscular procedure with open wound to the left medial thigh and left leg subsequently with evidence of pseudomonas bacteremia. On today's evaluation that is 08/08/2022, the patient denies having any fever or any chills, the patient is breathing slightly comfortably, patient denies having any chest pain or sputum production. She does complain of pain to the left leg wound area but no worsening and no worsening drainage Objective - Vital Signs Vital signs: Vital Signs Temp 97.7 F 08/08/22 08:49 Pulse 65 08/08/22 08:49 Resp 18 08/08/22 08:49 BP 105/58 08/08/22 08:49 Pulse Ox 94 L 08/08/22 09:21 FiO2 Intake & Output 08/07/22 08/08/22 08/08/22 18:59 06:59 18:59 Output Total 600 Balance -600 Weight 52.6 kg 53.5 kg Output: Urine 600 Other: Voiding Method External Catheter # Voids 1 # Bowel Movements 1 1 - Exam GENERAL DESCRIPTION: An elderly female lying in bed in no distress RESPIRATORY SYSTEM: Unlabored breathing , decreased breath sounds at bases HEART: S1 S2 regular rate and rhythm , ABDOMEN: Soft , no tenderness EXTREMITIES: Left thigh wound he did have minimal slough tissue some swelling no significant induration or redness left leg wound had did have some necrotic tissue and maceration - Labs CBC & Chem 7: 08/08/22 09:48 08/08/22 09:48 Labs: Microbiology - Last 24 Hours (Table) 08/07/22 12:06 Gram Stain - Preliminary Sputum Sputum Culture - Preliminary 08/06/22 09:59 Blood Culture Gram Stain - Preliminary Blood Blood Culture - Preliminary Pseudomonas aeruginosa Assessment and Plan (1) Bacteremia due to Pseudomonas Current Visit: Yes Status: Acute Code(s): R78.81 - BACTEREMIA; B96.5 - PSEUD OMONAS (MALLEI) CAUSING DISEASES [facility] SNOMED Code(s): 6666463408 Plan: 1patient presented to hospital with sepsis in this patient who did a fever elevated white tachycardia and now with evidence of gram-negative bacteremia source questionably infected left lower extremity wound with a recent vascular procedure for PAD versus pneumonia however chest x-ray is most interstitial infiltrate although the patient did have elevated procalcitonin sputum cultures have been obtained also be followed, left lower extremity wound that has some maceration and purulent material could be the source of this bacteremia 2-blood cultures has been repeated document clearance of bacteremia 3-patient to continue with the Zosyn while waiting for sensitivity to finalize and monitor clinical course closely Time with Patient: Less than 30
--- NOTE | 2022-08-08 14:51 | P.CNPUL ---
History of Present Illness Consult date: 08/08/22 Reason for consult: dyspnea, pneumonia History of present illness: 67-year-old female patient who presented to the hospital having fever and some worsening shortness of breath. The patient is known to have advanced COPD and she has undergone [place] valve insertion regarding her advanced COPD and the patient has been maintained on a combination of Spiriva and Advair an outpatient basis. The patient is oxygen dependent. The patient does also use oxygen at 2 L per minute nasal cannula at baseline. Noted the patient was in the hospital approximately 3 weeks ago and the patient underwent a vascular/femoral endarterectomy on her left femoral artery for symptomatic claudication. At that time, I took care of this patient in the intensive care unit. The patient is also has severe peripheral vascular disease and she has undergone prior stenting to her bilateral common iliacs and external iliacs and subsequently she required the left femoral and left profunda endarterectomy and left femoral to tibial peroneal trunk bypass. Postop, she developed some swelling in lower extremity and she does have a 4.1 and in her upper thigh with some purulent drainage at the base. During this current hospital stay, the patient was found to be sep tic. Blood culture was positive for pseudomonas aeruginosa and the patient was seen by infectious disease and the patient was started on IV Zosyn. Meanwhile, the patient is having worsening shortness of breath, cough and congestion. She has excessively congestive cough. She is unable to bring up much of sputum. Her sputum sample has been collected and is showing some few gram-negative bacilli. Her initial white cell count was at 17.2 and dropped down to 14.7. Her pro calcitonin level was 8.0. The chest x-ray showing bilateral lower lobe pulmonary infiltrates and the patient also has a some mild thoracic kyphosis and anterior wedging of the lower was thoracic vertebral and order of 30%. Review of Systems CONSTITUTIONAL: As mentioned in HPI HEENT: No recent visual problems or hearing problems. Denied any sore throat. CARDIOVASCULAR: No chest pain, orthopnea, PND, no palpitations, no syncope. claudication PULMONARY: Increased shortness of breath along with cough and congestion GASTROINTESTINAL: As mentioned in HPI : Neurologically, the patient has global generalized weakness. No headaches, no weakness, no numbness. Rheumatological, the patient has Sjogren's disease and the patient is demented on Plaquenil HEMATOLOGICAL: Denies any bleeding or petechiae. GENITOURINARY: Denies any burning micturition, frequency, or urgency. MUSCULOSKELETAL/RHEUMATOLOGICAL: Denies any joint pain, swelling, or any muscle pain. ENDOCRINE: Denies any polyuria or polydipsia. Skin, the patient has healing wounds in her left lower oximetry and the patient has a open wound measuring around 3 support centimeters inside and the medial thigh and the base is somewhat purulent and wet. Past Medical History Past Medical History: Atrial Fibrillation, Cancer, COPD, GERD/Reflux, Hyperlipidemia, Pneumonia, Respiratory Disorder, Vascular Disorder Additional Past Medical History / Comment(s): wound left leg-following wound care w/ Dr Osullivan, [place]by upper lobe nodule being monitored, home oxygen at 2 L/CONTINOUS, PVD, osteoporosis, constipation. LEFT BREAST CANCER received radiation 2019 History of Any Multi-Drug Resistant Organisms: None Reported Past Surgical History: Breast Surgery, Cholecystectomy, Hysterectomy, Orthopedic Surgery Additional Past Surgical History / Comment(s): 07/29/21 L iliac percutaneous balloon angioplasty with stent/atherectomy/PTBA L femoral artery/SHANK TAPPER R femoral artery/R iliac stent, abdominal aortagram, bronchoscopies with biopsy, bilateral wrist carpal tunnel, TMJ surgery, left neck cyst removed, colonoscopy, left breast lumpectomy. Past Anesthesia/Blood Transfusion Reactions: Previous Problems w/ Anesthesia, Blood Transfusion Reaction Additional Past Anesthesia/Blood Transfusion Reaction / Comment(s): SLOW TO WAKE UP. had transfusion in Jan 2022-had reaction dyspnea,tachypnea,nausea Past Psychological History: Anxiety Smoking Status: Never smoker - Past Family History Father Family Medical History: Cancer Additional Family Medical History / Comment(s): LUNG CANCER. Mother Family Medical History: Cancer Additional Family Medical History / Comment(s): BREAST CANCER. Medications and Allergies Home Medications Medication Instructions Recorded Confirmed Type Hydroxychloroquine Sulfate 200 mg PO BID 03/29/15 08/06/22 History [Plaquenil] Fluticasone Propion/Salmeterol 1 puff INHALATION RT-BID 05/31/16 08/06/22 History [Advair 500-50 Diskus] Gabapentin [Neurontin] 300 mg PO BID 04/07/19 08/06/22 History Levalbuterol Hfa Inhaler [Xopenex 1 puff INHALATION RT-Q6H PRN 04/07/19 08/06/22 History Hfa Inhaler] Calcium Carbonate [Calcium] 1,200 mg PO DAILY 04/29/19 08/06/22 History Letrozole [Femara] 2.5 mg PO DAILY 10/23/19 08/06/22 History Albuterol Nebulized [Ventolin 2.5 mg INHALATION RT-QID PRN 11/04/20 08/06/22 History Nebulized] Docusate [Colace] 100 mg PO DAILY 01/09/21 08/06/22 History buPROPion HCL [Wellbutrin SR] 100 mg PO DAILY 01/09/21 08/06/22 History Atorvastatin [Lipitor] 80 mg PO HS #90 tab 07/29/21 08/06/22 Rx ALPRAZolam [Xanax] 0.25 mg PO BID PRN 08/03/21 08/06/22 History Cholecalciferol [Vitamin D3 (25 50 mcg PO DAILY 08/03/21 08/06/22 History Mcg = 1000 Iu)] Tiotropium 2.5 Mcg/Puff [Spiriva 2 puff INHALATION RT-DAILY 08/03/21 08/06/22 History Respimat 2.5 Mcg] Metoprolol Tartrate [Lopressor] 12.5 mg PO BID 30 Days #60 tab 08/05/21 08/06/22 Rx Pantoprazole Sodium [Protonix] 40 mg PO BID #60 tab 08/07/21 08/06/22 Rx Furosemide [Lasix] 20 mg PO DAILY 11/30/21 08/06/22 History hydroCHLOROthiazide [Hydrodiuril] 25 mg PO DAILY 11/30/21 08/06/22 History Aspirin 325 mg PO DAILY tab 01/06/22 08/06/22 Rx Rivaroxaban [Xarelto] 2.5 mg PO BID #60 tab 07/25/22 08/06/22 Rx Gabapentin [Neurontin] 400 mg PO TID 08/06/22 08/06/22 History predniSONE See Taper PO DIRECTED 08/06/22 08/06/22 History Allergies Allergy/AdvReac Type Severity Reaction Status Date / Time banana Allergy Abdominal Verified 08/06/22 12:20 Pain budesonide [From Pulmicort] Allergy Dyspnea Verified 08/06/22 12:20 Iodinated Contrast Media Allergy Anaphylaxis Verified 08/06/22 12:20 [Iodinated Contrast Media - IV Dye] penicillin G Allergy Rash/Hives Verified 08/06/22 12:20 codeine AdvReac Nausea & Verified 08/06/22 12:20 Vomiting levofloxacin AdvReac joint pain Verified 08/06/22 12:20 verapamil AdvReac HEADACHE Verified 08/06/22 12:20 Physical Exam Vitals: Vital Signs Temp Pulse Resp BP BP Pulse Ox 08/08/22 11:40 63 18 104/58 99 08/08/22 11:10 65 18 08/08/22 09:21 94 L 08/08/22 08:49 97.7 F 65 18 105/58 98 08/08/22 04:00 97.6 F 69 14 104/60 98 08/07/22 23:40 96/54 08/07/22 23:39 85/47 08/07/22 23:36 98 F 72 14 83/47 96 08/07/22 20:44 99 08/07/22 20:00 97.8 F 74 14 97/59 100 08/07/22 15:36 96.5 F L 69 18 93/48 99 Intake and Output 08/07/22 08/08/22 08/08/22 22:59 06:59 14:59 Output Total 300 400 Balance -300 -400 Output: Urine 300 400 Other: Voiding Method External Catheter External Catheter External Catheter # Voids 1 # Bowel Movements 1 Weight 53.5 kg GENERAL EXAM: Alert, pleasant 65-year-old female patient, on 2 L nasal cannula, comfortable in no apparent distress. HEAD: Normocephalic. EYES: Normal reaction of pupils, equal size. NOSE: Clear with pink turbinates. THROAT: No erythema or exudates. NECK: No masses, no JVD. CHEST: No chest wall deformity. LUNGS: Equal air entry with bilateral end expiratory wheeze, diminished. The rest of the quite diminished in lung bases especially the right lung base and there is scattered rhonchi throughout the lung sewell bilaterally CVS: S1 and S2 normal with no audible murmur, regular rhythm. ABDOMEN: No hepatosplenomegaly, normal bowel sounds, no guarding or rigidity. SPINE: No scoliosis or deformity SKIN: No rashes CENTRAL NERVOUS SYSTEM: No focal deficits, tone is normal in all 4 extremities. EXTREMITIES: There is no peripheral edema. No clubbing, no cyanosis. Peripheral pulses are diminished bilaterally. Extremities are warm. The patient has multiple surgical incision in the medial aspect of the left lower extremity. Left groin incision is intact and there is minimal amount of drainage. Is on other comorbid in the upper thigh medially which had diffuse and there is ongoing drainage and the base is somewhat purulent. Results - Laboratory Findings CBC and BMP: 08/08/22 09:48 08/08/22 09:48 PT/INR, D-dimer PT 11.1 sec (9.0-12.0) 08/06/22 04:39 INR 1.1 (<1.2) 08/06/22 04:39 Abnormal lab findings: Abnormal Labs 08/06/22 08/06/22 08/06/22 04:39 04:39 04:39 WBC 17.2 H RBC 3.53 L Hgb 10.8 L Hct 33.6 L MCHC RDW 16.2 H Neutrophils # Neutrophils # (Manual) 16.80 H Lymphocytes # Lymphocytes # (Manual) 0.17 L APTT 17.8 L Sodium 136 L Potassium Chloride 89 L Carbon Dioxide 43 H* BUN Creatinine 0.40 L Glucose 106 H Calcium Troponin I Total Protein 5.2 L Albumin 2.8 L Procalcitonin 08/06/22 08/06/22 08/06/22 04:39 07:26 09:59 WBC RBC Hgb Hct MCHC RDW Neutrophils # Neutrophils # (Manual) Lymphocytes # Lymphocytes # (Manual) APTT Sodium Potassium Chloride Carbon Dioxide BUN Creatinine Glucose Calcium Troponin I 0.101 H* 0.184 H* 0.131 H* Total Protein Albumin Procalcitonin 08/06/22 08/07/22 08/08/22 09:59 05:16 09:48 WBC 14.7 H RBC 2.98 L Hgb 8.8 L D Hct 28.8 L MCHC 30.5 L RDW 16.6 H Neutrophils # 13.7 H Neutrophils # (Manual) Lymphocytes # 0.4 L Lymphocytes # (Manual) APTT Sodium Potassium 3.3 L Chloride 93 L Carbon Dioxide 38 H BUN 21 H Creatinine 0.36 L Glucose 71 L Calcium 7.9 L Troponin I Total Protein Albumin Procalcitonin 8.01 H 08/08/22 09:48 WBC RBC Hgb Hct MCHC RDW Neutrophils # Neutrophils # (Manual) Lymphocytes # Lymphocytes # (Manual) APTT Sodium Potassium Chloride 96 L Carbon Dioxide 37 H BUN 27 H Creatinine 0.49 L Glucose 142 H Calcium 7.8 L Troponin I Total Protein Albumin Procalcitonin - Diagnostic Findings Chest x-ray: image reviewed Assessment and Plan Plan: Bilateral lower lobe pneumonia, likely gram-negative hospital-acquired pneumonia with Pseudomonas. Currently on IV Zosyn. The patient has increased in filtration of the lung base bilaterally with bilateral lower lobe consolidation Acute sepsis secondary to pseudomonas aeruginosa currently on IV Zosyn. The patient was quite ill and she had leukocytosis and elevated pro-calcitonin level at time of admission Acute leukocytosis, improving Shortness of breath secondary to above Acute COPD exacerbation secondary to above Advanced COPD with previous insertion of [place] valve and the patient's of some chronic hypoxic respiratory failure due to advanced COPD Dehiscence of surgical wound. The patient has a surgical wound with a white draining base and the upper thigh on the left Multifocal atrial tachycardia, current mechanism is sinus CHF with preserved LV function and ejection fraction of 50-55% Chronic hypoxic respiratory failure maternal O2 at 2 L secondary to COPD Severe peripheral vascular disease. The patient has undergone multiple vascular intervention and stenting of the common iliacs and external iliacs and the patient is post endarterectomy of the femoral artery and profunda on the left with a femoral to tibial peroneal trunk bypass History of breast cancer History of Sjogren's disease maintained on Plaquenil outpatient basis Hyperlipidemia Chronic steroid dependent and the patient admitted on prednisone 10 mg daily basis Plan Aggressive pulmonary toileting Awaiting sputum Gram stain and cultures Continue IV Zosyn Obtain a CAT scan of the chest, noncontrast to evaluate the lung bases bilaterally Patient is currently on 40 mg of prednisone as part of burst taper We'll put the patient on DuoNeb nebulized treatments [id number] Continue anticoagulation with xarelto Obtain wound cultures We'll care with wet-to-dry to the left thigh We'll continue to follow. Titrate oxygen flow to maintain a saturation above 90%.
[2022-08-08] MEDS: FUROSEMIDE 20 MG TAB PO SCH (16:42)
--- NOTE | 2022-08-08 17:14 | CT ---
Exam: CT Chest without contrast. Date: 08/08/2022. Comparison: None History: Shortness of breath. Technique: CT examination of the chest was performed without contrast. Coronal and sagittal reformats were performed. CT dose lowering techniques were used, to include: automated exposure control, adjus tment for patient size, and/or use of iterative reconstruction. FINDINGS: Mediastinum and Megan: There is no axillary, mediastinal or hilar lymphadenopathy. Pleural and Pericardial spaces: There are moderate bilateral pleural effusions. Upper Abdomen: The visualized upper abdomen is unremarkable. Cardiovascular: There is moderate vascular calcification throughout the thoracic aorta without eviden ce of aneurysmal dilation Lung Parenchyma and Airways: There is severe diffuse centrilobular emphysema. Mild bronchial wall thi ckening in the lower lobes bilaterally. There is no focal area of consolidation. Bones: The bones are diffusely demineralized. There are a few mild compression deformities in the low er thoracic spine which are compatible with chronic compression deformities. No acute osseous abnorma lities are seen. IMPRESSION: 1. Severe emphysema. 2. Moderate bilateral pleural effusions.
[2022-08-08] MEDS: ATORVASTATIN 80 MG TAB PO SCH (20:19)
[2022-08-09] MEDS: guaiFENesin-DM 100-10MG/5ML 10 ML CUP PO SCH ×5 (00:17→22:45)
[2022-08-09] MEDS: PIPERACILLIN-TAZOBACTAM 3.375 GM in SODIUM CHLORIDE 0.9% 100 ML IVPB SCH ×4 (01:37→23:25)
[2022-08-09] MEDS: PANTOPRAZOLE 40 MG TABLET PO SCH ×2 (06:12→16:55)
[2022-08-09] MEDS: NON FORMULARY DRUG (Fluticasone Propion/Salmeterol [Advair 500-50 Diskus] 1 EACH Blst.W.De INHALATION SCH ×2 (08:18→21:47)
[2022-08-09] MEDS: TIOTROPIUM 2.5 MCG INHALER INHALATION SCH (08:19)
[2022-08-09] MEDS: ALBUTEROL HFA INHALER INHALATION PRN (08:19)
[2022-08-09] MEDS: GABAPENTIN 300 MG CAP PO SCH ×3 (09:19→22:45)
[2022-08-09] MEDS: ASPIRIN 81 MG PO SCH (09:19)
[2022-08-09] MEDS: METOPROLOL TARTRATE 25 MG TAB PO SCH ×2 (09:19→22:45)
[2022-08-09] MEDS: CHOLECALCIFEROL 25 MCG (1000 IU) TABLET PO SCH (09:19)
[2022-08-09] MEDS: DILTIAZEM ORAL 30 MG TAB PO SCH ×3 (09:19→22:45)
[2022-08-09] MEDS: predniSONE 20 MG TAB PO SCH (09:19)
[2022-08-09] MEDS: HYDROXYCHLOROQUINE SULFATE 200 MG TAB PO SCH ×2 (09:20→23:25)
[2022-08-09] MEDS: DOCUSATE 100 MG CAP PO SCH (09:20)
[2022-08-09] MEDS: FUROSEMIDE 20 MG TAB PO SCH ×2 (09:20→16:55)
[2022-08-09] MEDS: LETROZOLE 2.5 MG TAB PO SCH (09:20)
[2022-08-09] MEDS: RIVAROXABAN 2.5 MG TABLET PO SCH (09:21)
[2022-08-09] MEDS ORDERED: PROMETHAZINE 25 MG TAB PO PRN (10:03)
--- NOTE | 2022-08-09 10:10 | P.PN ---
Subjective Progress Note Date: 08/09/22 Principal diagnosis: Shortness of breath She was seen and examined today in follow-up. She states her breathing has improved some. States she is getting pain in left lower extremity pain of a intermittent sharp shooting pains. Has good range of motion and sensorimotor intact. Immunology no following, patient had a chest CT yesterday showing severe emphysema, moderate bilateral pleural effusions. She is stating that she has having some nausea today no vomiting. Objective - Vital Signs Vital signs: Vital Signs Temp 97.9 F 08/09/22 08:00 Pulse 74 08/09/22 08:00 Resp 16 08/09/22 08:00 BP 116/56 08/09/22 08:00 Pulse Ox 100 08/09/22 08:20 FiO2 Intake & Output 08/08/22 08/09/22 08/09/22 18:59 06:59 18:59 Output Total 400 300 Balance -400 -300 Weight 53 kg Output: Urine 400 300 Other: Voiding Method External Catheter External Catheter # Bowel Movements 0 1 - Exam General appearance: The patient is alert, oriented, appears in no acute distress. HET: Head is normocephalic and atraumatic. Pupils are equal and reactive. Neck: Supple without lymphadenopathy. Trachea midline. Extremities: Left lower extremity with multiple surgical incisions on the medial aspect of leg. Left groin incision site with minimal drainage. The left upper thigh wound with minimal drainage, no redness surrounding. Left lower wound with open wound dry, no drainage, no redness. No odor. Palpable bypass graft, with Doppler signal left PT and DP. Sensorimotor intact. Neurological: No focal deficits. - Labs CBC & Chem 7: 08/09/22 09:07 08/09/22 09:07 Labs: Abnormal Lab Results - Last 24 Hours (Table) 08/08/22 08/08/22 Range/Units 09:48 09:48 WBC 14.7 H (3.8-10.6) k/uL RBC 2.98 L (3.80-5.40) m/uL Hgb 8.8 L D (11.4-16.0) gm/dL Hct 28.8 L (34.0-46.0) % MCHC 30.5 L (31.0-37.0) g/dL RDW 16.6 H (11.5-15.5) % Neutrophils # 13.7 H (1.3-7.7) k/uL Lymphocytes # 0.4 L (1.0-4.8) k/uL Chloride 96 L (98-107) mmol/L Carbon Dioxide 37 H (22-30) mmol/L BUN 27 H (7-17) mg/dL Creatinine 0.49 L (0.52-1.04) mg/dL Glucose 142 H (74-99) mg/dL Calcium 7.8 L (8.4-10.2) mg/dL Microbiology - Last 24 Hours (Table) 08/07/22 12:06 Gram Stain - Preliminary Sputum Sputum Culture - Preliminary Gram Neg Bacilli Assessment and Plan Assessment: 1. COPD exacerbation 2. CHF exacerbation 3. Recent left lower extremity revascularization, with open wounds 4. Peripheral arterial disease 5. Atrial fibrillation 6. Acute Sepsis secondary to pseudomonas aeruginosa 7. Bilateral lower lobe pneumonia, sputum culture preliminary gram-negative bacilli Plan: 1. Continue symptomatic and supportive care 2. Continue local wound care per wound care clinic instructions 3. No indication for any vascular surgical intervention 4. Continue recommendations from infectious disease 5. Gabapentin increased to 300 mg 3 times a day 6. Continue medical management per medical team Thank you for this consultation. Follow-up with Dr. Garcia as scheduled. The impression and plan of care has been dictated as directed. Dr. Horan I performed a history and examination of this patient, discussed the same with the dictator. I agree with the dictator's note ,documented as a scribe. Any additional findings or plans will be noted.
--- NOTE | 2022-08-09 10:12 | CDI ---
Documentation Clarification Form Date: 08/09/2022 9:48:36 AM From: Ayana Rasmussen RN CCDS Phone: [phone] Admit Date: 08/06/2022 6:11:00 AM Patient Name: Franca Betts Visit Number: [id number] Discharge Date: ATTENTION: The Clinical Documentation Specialists (CDI) and [facility] Coding Staff appreciate your assistance in clarifying documentation. Please respond to the clarification below the line at the bottom and electronically sign. The CDI & [facility] Coding staff will review the response and follow-up if needed. Please note: Queries are made part of the Legal Health Record. If you have any questions, please contact the author of this message via ITS. Dr. Restrepo E Sheet The patient has Sepsis documented in the Infectious disease consult on 08/07. Based on this information and the findings below, is there an additional diagnosis that is clinically appropriate for this patient? History/Risk Factors: 67-year-old female presents to the ED with shortness of breath and whitish sputum. Medical History: COPD, 2L of oxygen ATC, chronic respiratory failure and peripheral vascular disease. 08/06, H&P. Clinical Indicators: Admitting Diagnosis: Acute on Chronic hypoxic respiratory failure, COPD/Pneumonia, Heart Failure. Labs, 08/06: Wbc 17.2, Neutrophils 16.80 Blood cultures, 08/06: Pseudomonas aeruginosa Sputum culture, 08/07: Gram Negative Bacilli Vitals signs: B/P 137/80, HR 140, Temp 101.3 F Oral, RR 24, SpO2 99% Non- Rebreather ID Consult, 08/07: Patient presented to hospital with sepsis in this patient who did a fever elevated white tachycardia and now with evidence of gram-negative bacteremia source questionably infected Pulmonology Consult, 08/08: Acute sepsis secondary to pseudomonas aeruginosa on IV Zosyn. The patient was quite ill and she had leukocytosis and elevated pro- calcitonin level at time of admission. Treatment: 08/06: Tylenol po x 1 Consults: ID and Pulmonology see above Antibiotics: 08/06 Zosyn IVPB Q8HR, IV Fluids: 08/06 0.9NS 20cc/hr Is there an additional diagnosis that is clinically appropriate for this patient? [ ] Sepsis, present on admission [ ] Sepsis ruled out [ ] Other, please specify [ ] Unable to determine SIRS Criteria: 2 or more of the following may indicate SIRS Temperature < 96.8F (36C) or > 101.0F (38.3C) Heart Rate > 90 bpm Respiratory Rate > 20 breaths/min or PaCO2 < 32 mmHg White Blood Cell Count > 12,000 or < 4,000 cells/mm3 or > 10% bands (Template Last Reviewed: June 2022) Sepsis, present on admission MTDD
[2022-08-09 10:26] LABS: Anisocytosis Slight; Basophils % (A) 0 %; Eosinophils % (A) 0 %; HCT 31.6 % (34.0-46.0); HGB 9.8 gm/dL (11.4-16.0); Hypochromasia Marked; Lymphocytes # (A) 0.9 k/uL (1.0-4.8); Lymphocytes % (A) 8 %; MCH 30.7 pg (25.0-35.0); MCHC 30.9 g/dL (31.0-37.0); MCV 99.4 fL (80.0-100.0); Macrocytosis Slight; Mean Platelet Volume 8.6; Monocytes # (A) 0.4 k/uL (0-1.0); Monocytes % (A) 3 %; Neutrophils % (A) 86 %; Platelet Count 263 k/uL (150-450); Poikilocytosis Moderate; RBC 3.18 m/uL (3.80-5.40); RDW 16.2 % (11.5-15.5); WBC 11.6 k/uL (3.8-10.6)
[2022-08-09 10:31] LABS: ALT 24 U/L (4-34); AST 20 U/L (14-36); African American GFR (CKD) >90 (>60 ml/min/1.73 sqM); Albumin 2.8 g/dL (3.5-5.0); Alkaline Phosphatase 85 U/L (38-126); Blood Urea Nitrogen 25 mg/dL (7-17); C Reactive Protein 8.6 mg/dL (<1.0); Chloride 95 mmol/L (98-107); Glucose 128 mg/dL (74-99); Non-African American GFR(CKD) >90 (>60 ml/min/1.73 sqM); Potassium 4.3 mmol/L (3.5-5.1); Sodium 140 mmol/L (137-145); Total Bilirubin 0.6 mg/dL (0.2-1.3); Total Protein 5.2 g/dL (6.3-8.2)
--- NOTE | 2022-08-09 10:33 | CDI ---
Documentation Clarification Form Date: 08/09/2022 10:17:30 AM From: Ayana Rasmussen RN CCDS Phone: [phone] Admit Date: 08/06/2022 6:11:00 AM Patient Name: Franca Betts Visit Number: [id number] Discharge Date: ATTENTION: The Clinical Documentation Specialists (CDI) and [facility] Coding Staff appreciate your assistance in clarifying documentation. Please respond to the clarification below the line at the bottom and electronically sign. The CDI & [facility] Coding staff will review the response and follow-up if needed. Please note: Queries are made part of the Legal Health Record. If you have any questions, please contact the author of this message via ITS. Dr. Restrepo E Sheet The Registered Dietitian assessment on 08/07 indicates this patient has inadequate energy intake and underweight. Based on this information and the findings below, is there an additional diagnosis that is clinically appropriate for this patient? History/Risk Factors: 67-year-old female presents to the ED with shortness of breath and whitish sputum. Medical History: COPD, 2L of oxygen ATC, chronic respiratory failure and peripheral vascular disease with recent surgery and open wounds. 08/06, H&P. Clinical Indicators: RD Consult Assessment: Current BMI: 18.3 kg Nutritional Intake: Poor 0-25% of heart healthy diet. Appetite is poor. Weight change: Decreased Intake, Fluid loss. 9% of weight loss in two weeks Nutritional Diagnosis: Intake: Inadequate energy intake. Related to nausea for two weeks, Evidenced: by: 25% of meals and 9% weight loss. Nutritional Intervention: Goals: weight gain, Increased PO take from 50% - 75%. Meeting 75% of estimated nutritional needs. Tolerating PO diet by discharge. Physical Findings: Hypermetabolism: wounds ( wounds to left leg prior to surgery). Treatment: Dietary Consult: See above Supplements: Magic cups TID Monitor: Oral nutrition and supplement intake. Diet education, Daily weights Is there an additional diagnosis that is clinically appropriate for this patient? [ ] Moderate Protein-Calorie Malnutrition [ ] Severe Protein-Calorie Malnutrition [ ] Other condition, please specify [ ] Unable to Determine (Template Last Revised: August 2020) Moderate Protein-Calorie Malnutrition MTDD
[2022-08-09 10:36] LABS: Anion Gap 6 mmol/L
[2022-08-09 10:37] LABS: Carbon Dioxide 39 mmol/L (22-30)
--- NOTE | 2022-08-09 10:49 | US ---
EXAMINATION TYPE: US chest DATE OF EXAM: 08/09/2022 COMPARISON: CXR CLINICAL HISTORY: Markings for thoracentesis by pulmonary staff. Pleural effusion TECHNIQUE: Targeted ultrasound of the posterior lower bilateral hemithoraces EXAM MEASUREMENTS: Right Pleural Effusion pocket size: 7.0 cm Right skin surface to fluid distance: 2.1 cm Left Pleural Effusion pocket size: 7.8 cm Left skin surface to fluid distance: 2.7 cm Right side marked for possible thoracentesis outside the dept. Left side marked for possible thoracentesis outside the dept. Pulmonologists are able to review the images in the patient?s EMR. IMPRESSIONS: Bilateral pleural effusion.
--- NOTE | 2022-08-09 10:57 | P.PN ---
Subjective 67-year-old female patient; past medical history significant for lower extremities peripheral arterial disease as well as severe COPD and chronic hy poxic respiratory failure on oxygen and also hypertension and dyslipidemia and history of multifocal atrial tachycardia, presented to the hospital complaining of shortness of breath. The patient does have a baseline shortness of breath and she is on oxygen continuously at 2 L. For the last few days she has been experiencing increasing in the shortness of breath associated according to her and her with fever and cough productive of whitish sputum. Beside that she developed bilateral lower extremities edema. No symptoms of any chest pain or chest discomfort or dizziness or lightheadedness but she has been experiencing symptoms of heart racing and fluttering was no presyncope or syn cope. The patient and her called ambulance and the patient was brought to the emergency department for further evaluation. During this admission she underwent a workup including an EKG showing what it seems to be multifocal atrial tachycardia with differential diagnosis of atrial fibrillation and also she underwent cardiac enzymes showed mildly abnormal troponin. The chest x-ray showed findings consistent with CHF. The rest of the blood work came in to be unremarkable. On examination she was in mild respiratory distress. She was also coughing during the examination. She does have bilateral expiratory wheezing and mild bilateral lower except his edema. Reviewing the vital signs revealed marginally low blood pressure with systolic pressure in the 90s. Currently she is on Cardizem IV and she is also on Lasix IV. 08/07/2022 This is a pleasant 67 years old female with multiple medical problems who was admitted initially because of dyspnea found to have acute CHF exacerbation and also she has evidence of bilateral pneumonia, she had a fever of 101.3 on admission. She still feels generally weak and tired, mildly tachypneic. Been followed by cardiology and infectious disease dating with positive blood culture for pseudomonas. And covered with abdomen Lasix 20 mg, IV Zosyn. Also she has history of COPD with chronic hypoxic respiratory failure on 2 L of oxygen at home, currently she is using before liters per minute. She has some evidence of diminished air entry in both sides under going to start prednisone 40 mg daily. She is on home dose of 0.5 mg twice a day for paroxysmal atrial fibrillation. Also she is on aspirin 325 mg. also patient follow up with Dr. Curran reported recent revascularizations surgery for his left lower extremity vascular disease, she still Dr. Curran last week and was doing well, she supposed to see him today so he was consulted 08/08/2022 Patient awake and alert, she still have little short of breath and tachypnea, however she feels better. Her cough feels better bleeding looks the same, she still have exertional dyspnea with walking. She still feels generally weak. States to have limited air entry on both lung sewell, no more fever and vitals are stable. Her abdomen Lasix switched to oral pills. [employer] on the case and she was kept on Xarelto and metoprolol and Cardizem for her A. fib, Patient also have evidence with pseudomonas bacteremia, source could be pneumonia versus left lower extremity wound, culture is been followed closely. Patient is covered with Zosyn. Infectious disease team on the case. 08/09/2022 Patient states that her leg feels better today, she still complaining of from shortness of breath although she has this wheezing and better air entry limitations to there. Also ultrasound showing bilateral pleural effusion. Vitals are stable. Patient remains on Zosyn, prednisone 40 mg and oral Lasix 20 mg twice daily. Objective - Vital Signs Vital signs: Vital Signs Temp 97.9 F 08/09/22 08:00 Pulse 74 08/09/22 08:00 Resp 16 08/09/22 08:00 BP 116/56 08/09/22 08:00 Pulse Ox 100 08/09/22 08:20 FiO2 Intake & Output 08/08/22 08/09/22 08/09/22 18:59 06:59 18:59 Output Total 400 300 Balance -400 -300 Weight 53 kg Output: Urine 400 300 Other: Voiding Method External Catheter External Catheter # Bowel Movements 0 1 - Exam -GENERAL: The patient is alert and oriented x3, not in any acute distress. Well developed, well nourished. Generally weak HEENT: Pupils are round and equally reacting to light. EOMI. No scleral icterus. No conjunctival pallor. Normocephalic, atraumatic. No pharyngeal erythema. No thyromegaly. CARDIOVASCULAR: S1 and S2 present. No murmurs, rubs, or gallops. -PULMONARY: Chest is clear to auscultation, no wheezing or crackles. Decreased air entry on both sides ABDOMEN: Soft, nontender, nondistended, normoactive bowel sounds. No palpable organomegaly. MUSCULOSKELETAL: No joint swelling or deformity. -EXTREMITIES: No cyanosis, clubbing, or pedal edema. Open wound on the left leg NEUROLOGICAL: Gross neurological examination did not reveal any focal deficits. SKIN: No rashes. no petechiae. - Labs CBC & Chem 7: 08/09/22 09:07 08/09/22 09:07 Labs: Abnormal Lab Results - Last 24 Hours (Table) 08/08/22 08/08/22 08/09/22 Range/Units 09:48 09:48 09:07 WBC 14.7 H 11.6 H (3.8-10.6) k/uL RBC 2.98 L 3.18 L (3.80-5.40) m/uL Hgb 8.8 L D 9.8 L (11.4-16.0) gm/dL Hct 28.8 L 31.6 L (34.0-46.0) % MCHC 30.5 L 30.9 L (31.0-37.0) g/dL RDW 16.6 H 16.2 H (11.5-15.5) % Neutrophils # 13.7 H 10.0 H (1.3-7.7) k/uL Lymphocytes # 0.4 L 0.9 L (1.0-4.8) k/uL Chloride 96 L (98-107) mmol/L Carbon Dioxide 37 H (22-30) mmol/L BUN 27 H (7-17) mg/dL Creatinine 0.49 L (0.52-1.04) mg/dL Glucose 142 H (74-99) mg/dL Calcium 7.8 L (8.4-10.2) mg/dL C-Reactive Protein (<1.0) mg/dL Total Protein (6.3-8.2) g/dL Albumin (3.5-5.0) g/dL 08/09/22 Range/Units 09:07 WBC (3.8-10.6) k/uL RBC (3.80-5.40) m/uL Hgb (11.4-16.0) gm/dL Hct (34.0-46.0) % MCHC (31.0-37.0) g/dL RDW (11.5-15.5) % Neutrophils # (1.3-7.7) k/uL Lymphocytes # (1.0-4.8) k/uL Chloride 95 L (98-107) mmol/L Carbon Dioxide 39 H (22-30) mmol/L BUN 25 H (7-17) mg/dL Creatinine (0.52-1.04) mg/dL Glucose 128 H (74-99) mg/dL Calcium 8.0 L (8.4-10.2) mg/dL C-Reactive Protein 8.6 H (<1.0) mg/dL Total Protein 5.2 L (6.3-8.2) g/dL Albumin 2.8 L (3.5-5.0) g/dL Microbiology - Last 24 Hours (Table) 08/07/22 12:06 Gram Stain - Final Sputum Sputum Culture - Final Pseudomonas aeruginosa Assessment and Plan Assessment: Bilateral pneumonia Pseudomonas bacteremia Acute CHF exacerbation Paroxysmal atrial fibrillation's with elevated troponin Acute COPD exacerbation Acute on chronic hypoxic respiratory failure Cyanosis present on admission with fever and leukocytosis Peripheral vascular disease status post recent revascularization of the left lower extremity with open wound Plan: Continue with Lasix which is switched to oral form Continue with Zosyn Continue with Xeralto Continue with prednisone and breathing treatment Cardiology, vascular surgeon and infectious disease consult Labs and medication were reviewed.. Continue same treatment. Continue with symptomatic treatment. Resume home medication. Monitor labs and vitals. DVT and GI prophylaxis. Further recommendations as per clinical course of the patie nt DVT prophylaxis: Xeralto GI Prophylaxis: Ppi PT/OT: Pending Prognosis is guarded
--- NOTE | 2022-08-09 11:48 | P.PN ---
Subjective Progress Note Date: 08/09/22 67-year-old female patient who presented to the hospital having fever and some worsening shortness of breath. The patient is known to have advanced COPD and she has undergone [place] valve insertion regarding her advanced COPD and the patient has been maintained on a combination of Spiriva and Advair an outpatient basis. The patient is oxygen dependent. The patient does also use oxygen at 2 L per minute nasal cannula at baseline. Noted the patient was in the hospital approximately 3 weeks ago and the patient underwent a vascular/femoral endarterectomy on her left femoral artery for symptomatic claudication. At that time, I took care of this patient in the intensive care unit. The patient is also has severe peripheral vascular disease and she has undergone prior stenting to her bilateral common iliacs and external iliacs and subsequently she required the left femoral and left profunda endarterectomy and left femoral to tibial peroneal trunk bypass. Postop, she developed some swelling in lower extremity and she does have a 4.1 and in her upper thigh with some purulent drainage at the base. During this current hospital stay, the patient was found to be sept ic. Blood culture was positive for pseudomonas aeruginosa and the patient was seen by infectious disease and the patient was started on IV Zosyn. Meanwhile, the patient is having worsening shortness of breath, cough and congestion. She has excessively congestive cough. She is unable to bring up much of sputum. Her sputum sample has been collected and is showing some few gram-negative bacilli. Her initial white cell count was at 17.2 and dropped down to 14.7. Her pro calcitonin level was 8.0. The chest x-ray showing bilateral lower lobe pulmonary infiltrates and the patient also has a some mild thoracic kyphosis and anterior wedging of the lower was thoracic vertebral and order of 30%. On 08/09/2022, the patient is still complaining of shortness of breath. As mentioned, the patient advanced COPD. For now, sputum is growing gram-negative bacillus and the patient has blood cultures is positive for pseudomonas aeruginosa. The patient is on IV Zosyn. This is most likely bilateral pneumonia with secondary sepsis. At the same time, CAT scan of the chest was done that showed limited infiltration of the lung bases and small to moderate- sized bilateral pleural effusion the lung bases. There is extensive emphysema bilaterally. Meanwhile, the patient is still having a congested cough. Unable to bring up much of sputum. No fever. No chills. No other new complaints othe rwise for now. Objective - Vital Signs Vital signs: Vital Signs Temp 97.9 F 08/09/22 08:00 Pulse 74 08/09/22 08:00 Resp 16 08/09/22 08:00 BP 116/56 08/09/22 08:00 Pulse Ox 100 08/09/22 08:20 FiO2 Intake & Output 08/08/22 08/09/22 08/09/22 18:59 06:59 18:59 Output Total 400 300 Balance -400 -300 Weight 53 kg Output: Urine 400 300 Other: Voiding Method External Catheter External Catheter # Bowel Movements 0 1 - Exam GENERAL EXAM: Alert, pleasant 65-year-old female patient, on 2 L nasal cannula, comfortable in no apparent distress. HEAD: Normocephalic. EYES: Normal reaction of pupils, equal size. NOSE: Clear with pink turbinates. THROAT: No erythema or exudates. NECK: No masses, no JVD. CHEST: No chest wall deformity. LUNGS: Equal air entry with bilateral end expiratory wheeze, diminished. The rest of the quite diminished in lung bases especially the right lung base and there is scattered rhonchi throughout the lung sewell bilaterally CVS: S1 and S2 normal with no audible murmur, regular rhythm. ABDOMEN: No hepatosplenomegaly, normal bowel sounds, no guarding or rigidity. SPINE: No scoliosis or deformity SKIN: No rashes CENTRAL NERVOUS SYSTEM: No focal deficits, tone is normal in all 4 extremities. EXTREMITIES: There is no peripheral edema. No clubbing, no cyanosis. Peripheral pulses are diminished bilaterally. Extremities are warm. The patient has multiple surgical incision in the medial aspect of the left lower extremity. Left groin incision is intact and there is minimal amount of drainage. Is on other comorbid in the upper thigh medially which had diffuse and there is ongoing drainage and the base is somewhat purulent. - Labs CBC & Chem 7: 08/09/22 09:07 08/09/22 09:07 Labs: Abnormal Lab Results - Last 24 Hours (Table) 08/09/22 08/09/22 Range/Units 09:07 09:07 WBC 11.6 H (3.8-10.6) k/uL RBC 3.18 L (3.80-5.40) m/uL Hgb 9.8 L (11.4-16.0) gm/dL Hct 31.6 L (34.0-46.0) % MCHC 30.9 L (31.0-37.0) g/dL RDW 16.2 H (11.5-15.5) % Neutrophils # 10.0 H (1.3-7.7) k/uL Lymphocytes # 0.9 L (1.0-4.8) k/uL Chloride 95 L (98-107) mmol/L Carbon Dioxide 39 H (22-30) mmol/L BUN 25 H (7-17) mg/dL Glucose 128 H (74-99) mg/dL Calcium 8.0 L (8.4-10.2) mg/dL C-Reactive Protein 8.6 H (<1.0) mg/dL Total Protein 5.2 L (6.3-8.2) g/dL Albumin 2.8 L (3.5-5.0) g/dL Microbiology - Last 24 Hours (Table) 08/07/22 12:06 Gram Stain - Final Sputum Sputum Culture - Final Pseudomonas aeruginosa Assessment and Plan Plan: Bilateral lower lobe pneumonia, likely gram-negative hospital-acquired pneumonia with Pseudomonas. Currently on IV Zosyn. The patient has increased infiltration of the lung base bilaterally with bilateral lower lobe consolidation Bilateral pleural effusion moderate in size Acute sepsis secondary to pseudomonas aeruginosa currently on IV Zosyn. The patient was quite ill and she had leukocytosis and elevated pro-calcitonin level at time of admission Acute leukocytosis, improving Shortness of breath secondary to above Acute COPD exacerbation secondary to above Advanced COPD with previous insertion of [place] valve and the patient's of some chronic hypoxic respiratory failure due to advanced COPD Dehiscence of surgical wound. The patient has a surgical wound with a white draining base and the upper thigh on the left Multifocal atrial tachycardia, current mechanism is sinus CHF with preserved LV function and ejection fraction of 50-55% Chronic hypoxic respiratory failure maternal O2 at 2 L secondary to COPD Severe peripheral vascular disease. The patient has undergone multiple vascular intervention and stenting of the common iliacs and external iliacs and the patient is post endarterectomy of the femoral artery and profunda on the left with a femoral to tibial peroneal trunk bypass History of breast cancer History of Sjogren's disease maintained on Plaquen[place] outpatient basis Hyperlipidemia Chronic steroid dependent and the patient admitted on prednisone 10 mg daily basis Plan Aggressive pulmonary toileting Awaiting sputum Gram stain and cultures, there is gram-negative bacillus growing in his sputum Continue IV Zosyn CAT scan of the chest was noted and the patient moderate-sized bilateral pleural effusion. The patient will benefit from thoracentesis. Postthoracentesis, with evaluated the bronchoscopy a therapeutic airway suctioning is also needed as the patient has significant amount of congestion and she is unable to bring up much of sputum. We'll add Mucinex DM We'll add flutter valve Patient is currently on 40 mg of prednisone as part of burst taper We'll put the patient on DuoNeb nebulized treatments [id number] XARELTO will be placed on hold in preparation for possible thoracentesis Ultrasound of the chest Obtain wound cultures We'll care with wet-to-dry to the left thigh We'll continue to follow. Titrate oxygen flow to maintain a saturation above 90%.
[2022-08-09] MEDS: ALBUTEROL HFA INHALER INHALATION SCH ×3 (11:49→21:47)
--- NOTE | 2022-08-09 12:29 | P.PN ---
Subjective Progress Note Date: 08/09/22 HISTORY OF PRESENT ILLNESS: The patient is a pleasant 67-year-old female patient who is known to our service from before with a past medical history significant for lower extremities peripheral arterial disease as well as severe COPD and chronic hypoxic respiratory failure on oxygen and also hypertension and dyslipidemia and history of multifocal atrial tachycardia. The patient presented to the hospital complaining of shortness of breath. The patient does have a baseline shortness of breath and she is on oxygen continuously at 2 L. For the last few days she has been experiencing increasing in the shortness of breath associated according to her and her with fever and cough productive of whitish sputum. Beside that she developed bilateral lower extremities edema. No symptoms of any chest pain or chest discomfort or dizziness or lightheadedness but she has been experiencing symptoms of heart racing and fluttering was no presyncope or syncope. The patient and her called ambulance and the patient was brought to the emergency department for further evaluation. She is known to have advanced COPD. Also she is known to have severe lower extremities PAD with a prior stenting of bilateral common iliacs and external iliacs and subsequently few weeks ago she underwent left femoral and left profunda endarterectomy with left femoral to tibial peroneal trunk bypass. She still does have a dressing on the left leg above the left knee because the incision has been healing very slowly. During this admission she underwent a workup including an EKG showing what it seems to be multifocal atrial tachycardia with differential diagnosis of atrial fibrillation and also she underwent cardiac enzymes showed mildly abnormal troponin. The chest x-ray showed findings consistent with CHF. The rest of the blood work came in to be unremarkable. On examination she was in mild respiratory distress. She was also coughing during the examination. She does have bilateral expiratory wheezing and mild bilateral lower except his edema. Reviewing the vital signs revealed marginally low blood pressure with systolic pressure in the 90s. Currently she is on Cardizem IV and she is also on Lasix IV. 08/07/2022 Patient examined this morning at the bedside. She denies chest pain or pressure. She reports shortness of breath this morning. She states that her shortness of breath got worse overnight and they had to increase her oxygen. The patient remains on Lasix 20 mg IV every 12 hours. Telemetry reveals sinus mechanism with a heart rate in the 60s. 08/08/2022 Patient examined this morning at the bedside. Patient denies chest pain or pressure. She reports SOB. She remains on IV lasix. Blood pressure is stable. Echo reveals EF 55-60% 08/09/2022 Patient examined this morning at the bedside. Patient denies chest pain or pressure. She reports continued shortness of breath. Vital signs are stable. PHYSICAL EXAM: VITAL SIGNS: Reviewed. GENERAL: Well-developed in no acute distress. NECK: Supple. No JVD or thyromegaly LUNGS: Respirations even and unlabored. Lungs diminished bilaterally HEART: Regular rate and rhythm. S1 and S2 heard. EXTREMITIES: Normal range of motion. No clubbing or cyanosis. Peripheral pulses intact. Trace lower extremity edema on the left. ASSESSMENT: Shortness of breath Acute COPD exacerbation Bilateral pneumonia Acute on chronic heart failure with preserved ejection fraction, EF 50-55% in 2020, repeat echo EF 55-60% Multifocal atrial tachycardia, currently maintaining sinus mechanism Hypertension Hyperlipidemia Peripheral arterial disease Recent left lower extremity revascularization with open wounds PLAN: Continue current cardiac medications Possible thoracentesis per pulmonary Patient to follow-up post discharge with Dr. Stewart We will sign off. Please reconsult if needed. Nurse practitioner note has been reviewed by physician. Signing provider agrees with the documented findings, assessment, and plan of care. Objective - Vital Signs Vital signs: Vital Signs Temp 97.9 F 08/09/22 08:00 Pulse 74 08/09/22 08:00 Resp 16 08/09/22 08:00 BP 116/56 08/09/22 08:00 Pulse Ox 100 08/09/22 08:20 FiO2 Intake & Output 08/08/22 08/09/22 08/09/22 18:59 06:59 18:59 Output Total 400 300 Balance -400 -300 Weight 53 kg Output: Urine 400 300 Other: Voiding Method External Catheter External Catheter External Catheter # Bowel Movements 0 1 - Labs CBC & Chem 7: 08/09/22 09:07 08/09/22 09:07 Labs: Abnormal Lab Results - Last 24 Hours (Table) 08/09/22 08/09/22 Range/Units 09:07 09:07 WBC 11.6 H (3.8-10.6) k/uL RBC 3.18 L (3.80-5.40) m/uL Hgb 9.8 L (11.4-16.0) gm/dL Hct 31.6 L (34.0-46.0) % MCHC 30.9 L (31.0-37.0) g/dL RDW 16.2 H (11.5-15.5) % Neutrophils # 10.0 H (1.3-7.7) k/uL Lymphocytes # 0.9 L (1.0-4.8) k/uL Chloride 95 L (98-107) mmol/L Carbon Dioxide 39 H (22-30) mmol/L BUN 25 H (7-17) mg/dL Glucose 128 H (74-99) mg/dL Calcium 8.0 L (8.4-10.2) mg/dL C-Reactive Protein 8.6 H (<1.0) mg/dL Total Protein 5.2 L (6.3-8.2) g/dL Albumin 2.8 L (3.5-5.0) g/dL Microbiology - Last 24 Hours (Table) 08/07/22 12:06 Gram Stain - Final Sputum Sputum Culture - Final Pseudomonas aeruginosa
[2022-08-09 13:30] LABS: Erythrocyte Sedimentation Rate 29 mm/hr (0-20)
[2022-08-09] MEDS: guaiFENesin-DM 600/30MG 1 EACH TAB.ER.12H PO SCH (14:01)
[2022-08-09] MEDS: COLLAGENASE 250 UNIT/GM OINTMENT 30 GM TUBE TOPICAL SCH (18:06)
--- NOTE | 2022-08-09 21:25 | P.PN ---
Subjective Progress Note Date: 08/09/22 Principal diagnosis: Pseudomonas bacteremia Patient is a 67-year-old female with a past medical history significant for hypertension GERD atrial fibrillation peripheral arterial disease left breast cancer presenting to the ER for evaluation of increasing shortness of breath patient did have fever and elevated white count and recently did have a left lower extremity muscular procedure with open wound to the left medial thigh and left leg subsequently with evidence of pseudomonas bacteremia. On today's evaluation that is 08/09/2022, the patient remains to be afebrile, the patient is breathing slightly comfortably currently undergoing nasal cannula, patient denies having any chest pain , denies any worsening cough or sputum production. She does complain of pain to the left leg wound area but no worsening and no worsening drainage Objective - Vital Signs Vital signs: Vital Signs Temp 97.9 F 08/09/22 08:00 Pulse 74 08/09/22 08:00 Resp 16 08/09/22 08:00 BP 116/56 08/09/22 08:00 Pulse Ox 100 08/09/22 08:20 FiO2 Intake & Output 08/08/22 08/09/22 08/09/22 18:59 06:59 18:59 Output Total 400 300 Balance -400 -300 Weight 53 kg Output: Urine 400 300 Other: Voiding Method External Catheter External Catheter # Bowel Movements 0 1 - Exam GENERAL DESCRIPTION: An elderly female lying in bed in no distress RESPIRATORY SYSTEM: Unlabored breathing , decreased breath sounds at bases HEART: S1 S2 regular rate and rhythm , ABDOMEN: Soft , no tenderness EXTREMITIES: Left thigh wound and left leg wound is currently dressed no drainage on the dressing - Labs CBC & Chem 7: 08/09/22 09:07 08/09/22 09:07 Labs: Abnormal Lab Results - Last 24 Hours (Table) 08/08/22 08/08/22 Range/Units 09:48 09:48 WBC 14.7 H (3.8-10.6) k/uL RBC 2.98 L (3.80-5.40) m/uL Hgb 8.8 L D (11.4-16.0) gm/dL Hct 28.8 L (34.0-46.0) % MCHC 30.5 L (31.0-37.0) g/dL RDW 16.6 H (11.5-15.5) % Neutrophils # 13.7 H (1.3-7.7) k/uL Lymphocytes # 0.4 L (1.0-4.8) k/uL Chloride 96 L (98-107) mmol/L Carbon Dioxide 37 H (22-30) mmol/L BUN 27 H (7-17) mg/dL Creatinine 0.49 L (0.52-1.04) mg/dL Glucose 142 H (74-99) mg/dL Calcium 7.8 L (8.4-10.2) mg/dL Microbiology - Last 24 Hours (Table) 08/07/22 12:06 Gram Stain - Preliminary Sputum Sputum Culture - Preliminary Gram Neg Bacilli Assessment and Plan (1) Bacteremia due to Pseudomonas Current Visit: Yes Status: Acute Code(s): R78.81 - BACTEREMIA; B96.5 - PSEUDOMONAS (MALLEI) [facility] Code(s): 0702649857 Plan: 1patient presented to hospital with sepsis in this patient who did a fever elevated white tachycardia and now with evidence of gram-negative bacteremia source questionably infected left lower extremity wound with a recent vascular procedure for PAD versus pneumonia however chest x-ray is most interstitial infiltrate although the patient did have elevated procalcitonin sputum cultures have been obtained also be followed, left lower extremity wound that has some ma ceration and purulent material could be the source of this bacteremia 2-blood cultures has been repeated document clearance of bacteremia 3-patient seemed hesitant some clinical improvement and will continue with the Zosyn and monitor clinical course closely Time with Patient: Less than 30
[2022-08-09] MEDS: ALBUTEROL NEBULIZED 2.5 MG/3 ML INHALATION SCH (21:47)
[2022-08-09] MEDS: ATORVASTATIN 80 MG TAB PO SCH (22:46)
[2022-08-10] MEDS: guaiFENesin-DM 600/30MG 1 EACH TAB.ER.12H PO SCH ×3 (06:45→20:32)
[2022-08-10] MEDS: PANTOPRAZOLE 40 MG TABLET PO SCH ×2 (06:46→16:31)
[2022-08-10] MEDS: guaiFENesin-DM 100-10MG/5ML 10 ML CUP PO SCH ×2 (06:46→11:58)
[2022-08-10] MEDS: SODIUM CHLORIDE 0.9% 1,000 ML IV SCH ×2 (08:24→08:25)
[2022-08-10] MEDS: PIPERACILLIN-TAZOBACTAM 3.375 GM in SODIUM CHLORIDE 0.9% 100 ML IVPB SCH ×3 (08:31→23:37)
[2022-08-10] MEDS: predniSONE 20 MG TAB PO SCH (08:32)
[2022-08-10] MEDS: CHOLECALCIFEROL 25 MCG (1000 IU) TABLET PO SCH (08:32)
[2022-08-10] MEDS: METOPROLOL TARTRATE 25 MG TAB PO SCH ×2 (08:32→20:32)
[2022-08-10] MEDS: DILTIAZEM ORAL 30 MG TAB PO SCH ×3 (08:32→20:31)
[2022-08-10] MEDS: ASPIRIN 81 MG PO SCH (08:32)
[2022-08-10] MEDS: HYDROXYCHLOROQUINE SULFATE 200 MG TAB PO SCH ×2 (08:33→20:32)
[2022-08-10] MEDS: LETROZOLE 2.5 MG TAB PO SCH (08:33)
[2022-08-10] MEDS: DOCUSATE 100 MG CAP PO SCH (08:40)
[2022-08-10] MEDS: GABAPENTIN 300 MG CAP PO SCH ×3 (08:40→20:32)
[2022-08-10] MEDS: FUROSEMIDE 20 MG TAB PO SCH ×2 (08:40→16:31)
[2022-08-10] MEDS ORDERED: LIDOCAINE 1% INJ 10MG/ML (30 ML VIAL-PF) SQ ONE (09:10)
--- NOTE | 2022-08-10 09:20 | P.PCN ---
Date of Procedure: 08/10/22 Preoperative Diagnosis: pleural effusion, Left Postoperative Diagnosis: pleural effusion, Left Procedure(s) Performed: thoracentesis, left Anesthesia: local Surgeon: Cecilia Munson Pathology: other Condition: stable Disposition: floor Operative Findings: A time out was performed and the chest x-ray was reviewed, the appropriate side was confirmed and marked. My hands were washed immediately prior to the procedure. I wore a surgical cap, mask with protective eyewear, sterile gown and sterile gloves throughout the procedure. The patient was prepped and draped in a sterile manner using chlorhexidine scrub after the appropriate level was percussed and confirmed by ultrasound. 1% lidocaine was used to anesthesize the skin, subcutaneous tissue, superior aspect of the rib periosteum and parietal pleura. A finder needle was then introduced over the superior aspect of the rib to locate the pleural fluid; 2colored fluid was aspirated at a depth of approximately 2 cm. A 10-blade scalpel was used to dominique the skin at the insertion site. The [id number] needle was then introduced through the skin incision into the pleural space using negative aspiration pressure and the red colometric indicator to confirm appropriate positioning of the needle. The thoracentesis catheter was then threaded without difficulty. 250 ml of turbid colored fluid was removed without difficulty. The catheter was then removed. No immediate complications were noted during the procedure. A post-procedure chest x-ray is pending at the time of this note. The fluid will be sent for studies. Estimated blood loss is 0cc
--- NOTE | 2022-08-10 09:46 | XR ---
EXAMINATION TYPE: XR chest 1V DATE OF EXAM: 08/10/2022 COMPARISON: 08/06/2022 HISTORY: Shortness of breath TECHNIQUE: Single frontal view of the chest is obtained. FINDINGS: There is a left-sided pneumothorax measuring approximately 5-10%. There also appears to be evidence of bilateral consolidation and tiny effusion improved from prior exam. Underlying COPD susp ected. Postsurgical change in the left hilum noted. Atherosclerotic change aorta. Report called to gabby crowder's nurse 9:40 AM 08/20/2022. IMPRESSION: 1. Interval development of approximately 10% left-sided pneumothorax. 2. COPD with bilateral consolidation and small pleural effusion.
[2022-08-10] MEDS: TIOTROPIUM 2.5 MCG INHALER INHALATION SCH (09:54)
[2022-08-10] MEDS: ALBUTEROL HFA INHALER INHALATION SCH ×2 (09:54→19:52)
[2022-08-10] MEDS: NON FORMULARY DRUG (Fluticasone Propion/Salmeterol [Advair 500-50 Diskus] 1 EACH Blst.W.De INHALATION SCH ×2 (09:59→21:02)
[2022-08-10] MEDS: ALBUTEROL NEBULIZED 2.5 MG/3 ML INHALATION SCH ×3 (10:02→20:56)
--- NOTE | 2022-08-10 11:41 | P.PN ---
Subjective 67-year-old female patient; past medical history significant for lower extremities peripheral arterial disease as well as severe COPD and chronic hy poxic respiratory failure on oxygen and also hypertension and dyslipidemia and history of multifocal atrial tachycardia, presented to the hospital complaining of shortness of breath. The patient does have a baseline shortness of breath and she is on oxygen continuously at 2 L. For the last few days she has been experiencing increasing in the shortness of breath associated according to her and her with fever and cough productive of whitish sputum. Beside that she developed bilateral lower extremities edema. No symptoms of any chest pain or chest discomfort or dizziness or lightheadedness but she has been experiencing symptoms of heart racing and fluttering was no presyncope or syn cope. The patient and her called ambulance and the patient was brought to the emergency department for further evaluation. During this admission she underwent a workup including an EKG showing what it seems to be multifocal atrial tachycardia with differential diagnosis of atrial fibrillation and also she underwent cardiac enzymes showed mildly abnormal troponin. The chest x-ray showed findings consistent with CHF. The rest of the blood work came in to be unremarkable. On examination she was in mild respiratory distress. She was also coughing during the examination. She does have bilateral expiratory wheezing and mild bilateral lower except his edema. Reviewing the vital signs revealed marginally low blood pressure with systolic pressure in the 90s. Currently she is on Cardizem IV and she is also on Lasix IV. 08/07/2022 This is a pleasant 67 years old female with multiple medical problems who was admitted initially because of dyspnea found to have acute CHF exacerbation and also she has evidence of bilateral pneumonia, she had a fever of 101.3 on admission. She still feels generally weak and tired, mildly tachypneic. Been followed by cardiology and infectious disease dating with positive blood culture for pseudomonas. And covered with abdomen Lasix 20 mg, IV Zosyn. Also she has history of COPD with chronic hypoxic respiratory failure on 2 L of oxygen at home, currently she is using before liters per minute. She has some evidence of diminished air entry in both sides under going to start prednisone 40 mg daily. She is on home dose of 0.5 mg twice a day for paroxysmal atrial fibrillation. Also she is on aspirin 325 mg. also patient follow up with Dr. Curran reported recent revascularizations surgery for his left lower extremity vascular disease, she still Dr. Curran last week and was doing well, she supposed to see him today so he was consulted 08/08/2022 Patient awake and alert, she still have little short of breath and tachypnea, however she feels better. Her cough feels better bleeding looks the same, she still have exertional dyspnea with walking. She still feels generally weak. States to have limited air entry on both lung sewell, no more fever and vitals are stable. Her abdomen Lasix switched to oral pills. [employer] Installer on the case and she was kept on Xarelto and metoprolol and Cardizem for her A. fib, Patient also have evidence with pseudomonas bacteremia, source could be pneumonia versus left lower extremity wound, culture is been followed closely. Patient is covered with Zosyn. Infectious disease team on the case. 08/09/2022 Patient states that her leg feels better today, she still complaining of from shortness of breath although she has this wheezing and better air entry limitations to there. Also ultrasound showing bilateral pleural effusion. Vitals are stable. Patient remains on Zosyn, prednisone 40 mg and oral Lasix 20 mg twice daily. 08/10/2022 Patient is still improving slowly and gradually regarding her pneumonia, she sent in bed most of the time, she has recovered is improving with Robitussin-DM which is continued. Chest x-ray from today show significant improvement compared to a few days ago. She underwent a thoracocentesis with 250 mL of turbid fluid removed. Sputum culture is growing Pseudomonas same as blood culture, patient is currently covered with Zosyn. Also she is on a prednisone 40 mg for her possible COPD element. Cardiology team already signed off with recommendation to follow up with Dr. Stewart as an outpatient. Objective - Vital Signs Vital signs: Vital Signs Temp 97.5 F L 08/10/22 04:00 Pulse 61 08/10/22 08:00 Resp 16 08/10/22 08:00 BP 114/69 08/10/22 08:00 Pulse Ox 100 08/10/22 08:00 FiO2 Intake & Output 08/09/22 08/10/22 08/10/22 18:59 06:59 18:59 Output Total 225 Balance -225 Output: Urine 225 Other: Voiding Method External Catheter External Catheter External Catheter # Bowel Movements 1 - Exam -GENERAL: The patient is alert and oriented x3, not in any acute distress. Well developed, well nourished. Generally weak HEENT: Pupils are round and equally reacting to light. EOMI. No scleral icterus. No conjunctival pallor. Normocephalic, atraumatic. No pharyngeal erythema. No thyromegaly. CARDIOVASCULAR: S1 and S2 present. No murmurs, rubs, or gallops. -PULMONARY: Chest is clear to auscultation, no wheezing or crackles. Decreased air entry on both sides ABDOMEN: Soft, nontender, nondistended, normoactive bowel sounds. No palpable organomegaly. MUSCULOSKELETAL: No joint swelling or deformity. -EXTREMITIES: No cyanosis, clubbing, or pedal edema. Open wound on the left leg NEUROLOGICAL: Gross neurological examination did not reveal any focal deficits. SKIN: No rashes. no petechiae. - Labs CBC & Chem 7: 08/09/22 09:07 08/09/22 09:07 Labs: Abnormal Lab Results - Last 24 Hours (Table) 08/09/22 Range/Units 09:07 ESR 29 H (0-20) mm/hr Microbiology - Last 24 Hours (Table) 08/06/22 09:59 Blood Culture Gram Stain - Final Blood Blood Culture - Final Pseudomonas aeruginosa 08/08/22 11:54 Blood Culture - Preliminary Blood No Growth after 24 hours 08/07/22 12:06 Gram Stain - Final Sputum Sputum Culture - Final Pseudomonas aeruginosa Assessment and Plan Assessment: Bilateral pneumonia secondary to pseudomonas. Status post left thoracocentesis with 50 mL of turbid fluid removed on 08/10 Pseudomonas bacteremia Acute CHF exacerbation Paroxysmal atrial fibrillation's with elevated troponin Acute COPD exacerbation Acute on chronic hypoxic respiratory failure Cyanosis present on admission with fever and leukocytosis Peripheral vascular disease status post recent revascularization of the left lower extremity with open wound Plan: Continue with Zosyn Continue with Xeralto Continue with prednisone and breathing treatment Continue with oral Lasix, cardiology signed off Cardiology, vascular surgeon and infectious disease consult Labs and medication were reviewed.. Continue same treatment. Continue with symptomatic treatment. Resume home medication. Monitor labs and vitals. DVT and GI prophylaxis. Further recommendations as per clinical course of the patient DVT prophylaxis: Xeralto GI Prophylaxis: Ppi PT/OT: Pending Prognosis is guarded
--- NOTE | 2022-08-10 11:44 | P.PN ---
Subjective Progress Note Date: 08/10/22 67-year-old female patient who presented to the hospital having fever and some worsening shortness of breath. The patient is known to have advanced COPD and she has undergone Dingle valve insertion regarding her advanced COPD and the patient has been maintained on a combination of Spiriva and Advair an outpatient basis. The patient is oxygen dependent. The patient does also use oxygen at 2 L per minute nasal cannula at baseline. Noted the patient was in the hospital approximately 3 weeks ago and the patient underwent a vascular/femoral endarterectomy on her left femoral artery for symptomatic claudication. At that time, I took care of this patient in the intensive care unit. The patient is also has severe peripheral vascular disease and she has undergone prior stenting to her bilateral common iliacs and external iliacs and subsequently she required the left femoral and left profunda endarterectomy and left femoral to tibial peroneal trunk bypass. Postop, she developed some swelling in lower extremity and she does have a 4.1 and in her upper thigh with some purulent drainage at the base. During this current hospital stay, the patient was found to be sept ic. Blood culture was positive for pseudomonas aeruginosa and the patient was seen by infectious disease and the patient was started on IV Zosyn. Meanwhile, the patient is having worsening shortness of breath, cough and congestion. She has excessively congestive cough. She is unable to bring up much of sputum. Her sputum sample has been collected and is showing some few gram-negative bacilli. Her initial white cell count was at 17.2 and dropped down to 14.7. Her pro calcitonin level was 8.0. The chest x-ray showing bilateral lower lobe pulmonary infiltrates and the patient also has a some mild thoracic kyphosis and anterior wedging of the lower was thoracic vertebral and order of 30%. On 08/09/2022, the patient is still complaining of shortness of breath. As mentioned, the patient advanced COPD. For now, sputum is growing gram-negative bacillus and the patient has blood cultures is positive for pseudomonas aeruginosa. The patient is on IV Zosyn. This is most likely bilateral pneumonia with secondary sepsis. At the same time, CAT scan of the chest was done that showed limited infiltration of the lung bases and small to moderate- sized bilateral pleural effusion the lung bases. There is extensive emphysema bilaterally. Meanwhile, the patient is still having a congested cough. Unable to bring up much of sputum. No fever. No chills. No other new complaints othe rwise for now. On 08/10/2022, the patient's condition is essentially the same. Sputum sample was positive for pseudomonas aeruginosa. Blood culture was also positive for pseudomonas aeruginosa the patient is currently on IV Zosyn. The patient bilateral pleural effusion. Ultrasound marking of the chest was done and I performed a left-sided thoracentesis today and the patient able to 10% pneumo thorax on the left. Total amount of fluid removed was around 250 mL. The patient remained hemodynamically stable. The patient reported improvement in her shortness of breath following the procedure. Nevertheless, she continues to have a congested cough. She is on Mucinex. Unable to bring up much of sputum. The WBC count is improving the white second of 11.6 with a hemoglobin of 9.8. BUN is at 25 with a creatinine of 0.5 and a sodium is at 140. Objective - Vital Signs Vital signs: Vital Signs Temp 97.5 F L 08/10/22 04:00 Pulse 61 08/10/22 08:00 Resp 16 08/10/22 08:00 BP 114/69 08/10/22 08:00 Pulse Ox 100 08/10/22 08:00 FiO2 Intake & Output 08/09/22 08/10/22 08/10/22 18:59 06:59 18:59 Output Total 225 Balance -225 Output: Urine 225 Other: Voiding Method External Catheter External Catheter # Bowel Movements 1 - Exam GENERAL EXAM: Alert, pleasant 65-year-old female patient, on 2 L nasal cannula, comfortable in no apparent distress. HEAD: Normocephalic. EYES: Normal reaction of pupils, equal size. NOSE: Clear with pink turbinates. THROAT: No erythema or exudates. NECK: No masses, no JVD. CHEST: No chest wall deformity. LUNGS: Equal air entry with bilateral end expiratory wheeze, diminished. The rest of the quite diminished in lung bases especially the right lung base and there is scattered rhonchi throughout the lung sewell bilaterally CVS: S1 and S2 normal with no audible murmur, regular rhythm. ABDOMEN: No hepatosplenomegaly, normal bowel sounds, no guarding or rigidity. SPINE: No scoliosis or deformity SKIN: No rashes CENTRAL NERVOUS SYSTEM: No focal deficits, tone is normal in all 4 extremities. EXTREMITIES: There is no peripheral edema. No clubbing, no cyanosis. Peripheral pulses are diminished bilaterally. Extremities are warm. The patient has multiple surgical incision in the medial aspect of the left lower extremity. Left groin incision is intact and there is minimal amount of drainage. Is on other comorbid in the upper thigh medially which had diffuse and there is ongoing drainage and the base is somewhat purulent. - Labs CBC & Chem 7: 08/09/22 09:07 08/09/22 09:07 Labs: Abnormal Lab Results - Last 24 Hours (Table) 08/09/22 08/09/22 Range/Units 09:07 09:07 WBC 11.6 H (3.8-10.6) k/uL RBC 3.18 L (3.80-5.40) m/uL Hgb 9.8 L (11.4-16.0) gm/dL Hct 31.6 L (34.0-46.0) % MCHC 30.9 L (31.0-37.0) g/dL RDW 16.2 H (11.5-15.5) % Neutrophils # 10.0 H (1.3-7.7) k/uL Lymphocytes # 0.9 L (1.0-4.8) k/uL ESR 29 H (0-20) mm/hr Chloride 95 L (98-107) mmol/L Carbon Dioxide 39 H (22-30) mmol/L BUN 25 H (7-17) mg/dL Glucose 128 H (74-99) mg/dL Calcium 8.0 L (8.4-10.2) mg/dL C-Reactive Protein 8.6 H (<1.0) mg/dL Total Protein 5.2 L (6.3-8.2) g/dL Albumin 2.8 L (3.5-5.0) g/dL Microbiology - Last 24 Hours (Table) 08/06/22 09:59 Blood Culture Gram Stain - Final Blood Blood Culture - Final Pseudomonas aeruginosa 08/08/22 11:54 Blood Culture - Preliminary Blood No Growth after 24 hours 08/07/22 12:06 Gram Stain - Final Sputum Sputum Culture - Final Pseudomonas aeruginosa Assessment and Plan Plan: Hospital-acquired pseudomonal pneumonia. The patient presented with Bilateral lower lobe pneumonia, likely gram-negative hospital-acquired pneumonia with Pseudomonas. The sputum sample was positive for pseudomonas aeruginosa. Blood cultures were also positive. Currently on IV Zosyn. The patient has increased infiltration of the lung base bilaterally with bilateral lower lobe consolidation Bilateral pleural effusion moderate in size, postthoracentesis of the left lung, total of 250 mL of fluid removed, developed 10% pneumothorax, hemodynamically stable, clinically stable and improved following the procedure. Acute sepsis secondary to pseudomonas aeruginosa currently on IV Zosyn. The p atient was quite ill and she had leukocytosis and elevated pro-calcitonin level at time of admission, white cell count is improving Acute leukocytosis, improving Shortness of breath secondary to above Acute COPD exacerbation secondary to above Advanced COPD with previous insertion of Dingle valve and the patient's of some chronic hypoxic respiratory failure due to advanced COPD Dehiscence of surgical wound. The patient has a surgical wound with a white draining base and the upper thigh on the left Multifocal atrial tachycardia, current mechanism is sinus CHF with preserved LV function and ejection fraction of 50-55% Chronic hypoxic respiratory failure maternal O2 at 2 L secondary to COPD Severe peripheral vascular disease. The patient has undergone multiple vascular intervention and stenting of the common iliacs and external iliacs and the patient is post endarterectomy of the femoral artery and profunda on the left with a femoral to tibial peroneal trunk bypass History of breast cancer History of Sjogren's disease maintained on Plaquenil outpatient basis Hyperlipidemia Chronic steroid dependent and the patient admitted on prednisone 10 mg daily basis Plan Aggressive pulmonary toileting Awaiting sputum Gram stain and cultures, there is gram-negative bacillus growing in his sputum Continue IV Zosyn We will send the pleural effusion for analysis. We monitored 10% pneumothorax on the left, the patient is asymptomatic at this point in time in terms of the pneumothorax Mucinex DM flutter valve Patient is currently on 40 mg of prednisone as part of burst taper We'll put the patient on DuoNeb nebulized treatments [id number] XARELTO will be placed on hold Possible bronchoscopy the later stage of stairs no improvement We'll care with wet-to-dry to the left thigh We'll continue to follow. Titrate oxygen flow to maintain a saturation above 90%.
--- NOTE | 2022-08-10 11:53 | P.PN ---
Subjective Progress Note Date: 08/10/22 Principal diagnosis: Shortness of breath Patient seen and examined for follow-up. This morning she underwent a thoracentesis. She's been afebrile. On states overall she is feeling a little bit better. States pain in left lower extremity improved. Objective - Vital Signs Vital signs: Vital Signs Temp 97.5 F L 08/10/22 04:00 Pulse 61 08/10/22 08:00 Resp 16 08/10/22 08:00 BP 114/69 08/10/22 08:00 Pulse Ox 100 08/10/22 08:00 FiO2 Intake & Output 08/09/22 08/10/22 08/10/22 18:59 06:59 18:59 Output Total 225 Balance -225 Output: Urine 225 Other: Voiding Method External Catheter External Catheter External Catheter # Bowel Movements 1 - Exam General appearance: The patient is alert, oriented, appears in no acute distress. HET: Head is normocephalic and atraumatic. Pupils are equal and reactive. Neck: Supple without lymphadenopathy. Trachea midline. Extremities: Left lower extremity with multiple surgical incisions on the medial aspect of leg. Left groin incision site with minimal drainage. The left upper thigh wound with minimal drainage, no redness surrounding. Left lower wound with open wound dry, no drainage, no redness. No odor. Palpable bypass graft, with Doppler signal left PT and DP. Sensorimotor intact. Neurological: No focal deficits. - Labs CBC & Chem 7: 08/09/22 09:07 08/09/22 09:07 Labs: Abnormal Lab Results - Last 24 Hours (Table) 08/09/22 Range/Units 09:07 ESR 29 H (0-20) mm/hr Microbiology - Last 24 Hours (Table) 08/06/22 09:59 Blood Culture Gram Stain - Final Blood Blood Culture - Final Pseudomonas aeruginosa 08/08/22 11:54 Blood Culture - Preliminary Blood No Growth after 24 hours 08/07/22 12:06 Gram Stain - Final Sputum Sputum Culture - Final Pseudomonas aeruginosa Assessment and Plan Assessment: 1. COPD exacerbation 2. CHF exacerbation 3. Recent left lower extremity revascularization, with open wounds 4. Peripheral arterial disease 5. Atrial fibrillation 6. Acute Sepsis secondary to pseudomonas aeruginosa 7. Bilateral lower lobe pneumonia, sputum culture preliminary gram-negative bacilli Plan: 1. Continue symptomatic and supportive care 2. Continue local wound care per wound care clinic instructions 3. No indication for any vascular surgical intervention 4. Continue recommendations from infectious disease 5. Gabapentin increased to 300 mg 3 times a day 6. Continue medical management per medical team Thank you for this consultation. Follow-up with Dr. Garcia as scheduled. The impression and plan of care has been dictated as directed. Dr. Dacosta I performed a history and examination of this patient, discussed the same with the dictator. I agree with the dictator's note ,documented as a scribe. Any additional findings or plans will be noted.
--- NOTE | 2022-08-10 13:29 | P.PN ---
Subjective Progress Note Date: 08/10/22 Principal diagnosis: Pseudomonas bacteremia Patient is a 67-year-old female with a past medical history significant for hypertension GERD atrial fibrillation peripheral arterial disease left breast cancer presenting to the ER for evaluation of increasing shortness of breath patient did have fever and elevated white count and recently did have a left lower extremity muscular procedure with open wound to the left medial thigh and left leg subsequently with evidence of pseudomonas bacteremia. Patient is status post left-sided thoracocentesis completed on 08/10/2022 with removal of 250 mL turbid fluid On today's evaluation that is 08/10/2022, the patient remains to be afebrile, the patient is breathing slightly comfortably currently on 5 L nasal cannula oxygen, patient denies having any chest pain , the patient cough has decreased in intensity and no more sputum production. The patient pain to the left leg wound area has decreased in intensity Objective - Vital Signs Vital signs: Vital Signs Temp 97.5 F L 08/10/22 04:00 Pulse 61 08/10/22 08:00 Resp 16 08/10/22 08:00 BP 114/69 08/10/22 08:00 Pulse Ox 100 08/10/22 08:00 FiO2 Intake & Output 08/09/22 08/10/22 08/10/22 18:59 06:59 18:59 Output Total 225 Balance -225 Output: Urine 225 Other: Voiding Method External Catheter External Catheter # Bowel Movements 1 - Exam GENERAL DESCRIPTION: An elderly female lying in bed in no distress RESPIRATORY SYSTEM: Unlabored breathing , decreased breath sounds at bases HEART: S1 S2 regular rate and rhythm , ABDOMEN: Soft , no tenderness EXTREMITIES: Left thigh wound and left leg wound is currently dressed no drainage on the dressing - Labs CBC & Chem 7: 08/09/22 09:07 08/09/22 09:07 Labs: Abnormal Lab Results - Last 24 Hours (Table) 08/09/22 08/09/22 Range/Units 09: 09:07 WBC 11.6 H (3.8-10.6) k/uL RBC 3.18 L (3.80-5.40) m/uL Hgb 9.8 L (11.4-16.0) gm/dL Hct 31.6 L (34.0-46.0) % MCHC 30.9 L (31.0-37.0) g/dL RDW 16.2 H (11.5-15.5) % Neutrophils # 10.0 H (1.3-7.7) k/uL Lymphocytes # 0.9 L (1.0-4.8) k/uL ESR 29 H (0-20) mm/hr Chloride 95 L (98-107) mmol/L Carbon Dioxide 39 H (22-30) mmol/L BUN 25 H (7-17) mg/dL Glucose 128 H (74-99) mg/dL Calcium 8.0 L (8.4-10.2) mg/dL C-Reactive Protein 8.6 H (<1.0) mg/dL Total Protein 5.2 L (6.3-8.2) g/dL Albumin 2.8 L (3.5-5.0) g/dL Microbiology - Last 24 Hours (Table) 08/06/22 09:59 Blood Culture Gram Stain - Final Blood Blood Culture - Final Pseudomonas aeruginosa 08/08/22 11:54 Blood Culture - Preliminary Blood No Growth after 24 hours 08/07/22 12:06 Gram Stain - Final Sputum Sputum Culture - Final Pseudomonas aeruginosa Assessment and Plan (1) Bacteremia due to Pseudomonas Current Visit: Yes Status: Acute Code(s): R78.81 - BACTEREMIA; B96.5 - PSEUDOMONAS (MALLEI) CAUSING DISEASES CL[facility]SD [facility] SNOMED Code(s): 2999679435 Plan: 1patient presented to hospital with sepsis in this patient who did a fever elevated white tachycardia and now with evidence of gram-negative bacteremia source questionably infected left lower extremity wound with a recent vascular procedure for PAD versus pneumonia however chest x-ray is most interstitial infiltrate although the patient did have elevated procalcitonin sputum cultures have been obtained also be followed, left lower extremity wound that has some maceration and purulent material could be the source of this bacteremia 2-blood cultures repeat has been negative so far 3-patient did have some clinical improvement and will continue with the Zosyn and follow-up on the pleural fluid culture Time with Patient: Less than 30
[2022-08-10 15:13] VITALS: BMI 18.3
[2022-08-10] MEDS: COLLAGENASE 250 UNIT/GM OINTMENT 30 GM TUBE TOPICAL SCH (16:32)
[2022-08-10 18:58] LABS: Appearance,BF Hazy
[2022-08-10 19:11] LABS: Glucose, BF Source Pleural Fluid; Glucose, Body Fluid 102 mg/dL; LDH, Body Fluid Source Pleural Fluid; T. Protein, Body Fluid Source Pleural Fluid; Total Protein, Body Fluid 1180 mg/dL
[2022-08-10] MEDS: ATORVASTATIN 80 MG TAB PO SCH (20:31)
[2022-08-11] MEDS: SODIUM CHLORIDE 0.9% 1,000 ML IV SCH (06:05)
[2022-08-11] MEDS: PANTOPRAZOLE 40 MG TABLET PO SCH ×2 (06:05→16:54)
[2022-08-11] MEDS: guaiFENesin-DM 600/30MG 1 EACH TAB.ER.12H PO SCH ×2 (08:58→20:16)
[2022-08-11] MEDS: predniSONE 20 MG TAB PO SCH (08:59)
[2022-08-11] MEDS: GABAPENTIN 300 MG CAP PO SCH ×3 (09:00→20:16)
[2022-08-11] MEDS: METOPROLOL TARTRATE 25 MG TAB PO SCH ×2 (09:00→20:16)
[2022-08-11] MEDS: DILTIAZEM ORAL 30 MG TAB PO SCH ×3 (09:00→20:16)
[2022-08-11] MEDS: PIPERACILLIN-TAZOBACTAM 3.375 GM in SODIUM CHLORIDE 0.9% 100 ML IVPB SCH ×3 (09:00→23:11)
[2022-08-11] MEDS: FUROSEMIDE 20 MG TAB PO SCH ×2 (09:00→16:54)
[2022-08-11] MEDS: CHOLECALCIFEROL 25 MCG (1000 IU) TABLET PO SCH (09:00)
[2022-08-11] MEDS: DOCUSATE 100 MG CAP PO SCH (09:00)
[2022-08-11] MEDS: ASPIRIN 81 MG PO SCH (09:00)
[2022-08-11] MEDS: HYDROXYCHLOROQUINE SULFATE 200 MG TAB PO SCH ×2 (09:01→20:16)
[2022-08-11] MEDS: LETROZOLE 2.5 MG TAB PO SCH (09:01)
[2022-08-11] MEDS: ALBUTEROL NEBULIZED 2.5 MG/3 ML INHALATION SCH ×4 (09:43→20:26)
[2022-08-11] MEDS: TIOTROPIUM 2.5 MCG INHALER INHALATION SCH (09:43)
[2022-08-11] MEDS: NON FORMULARY DRUG (Fluticasone Propion/Salmeterol [Advair 500-50 Diskus] 1 EACH Blst.W.De INHALATION SCH ×2 (09:43→20:26)
--- NOTE | 2022-08-11 09:43 | P.PN ---
Subjective Progress Note Date: 08/11/22 Principal diagnosis: Shortness of breath Received a call from nursing unit that patient was "hemorrhaging" from her left groin surgical site, I immediately walked over to the nursing unit. By the time I got there to evaluate the patient, the bleeding had are the stop. They stated that they apply pressure which eventually stopped the bleeding. They stated that the blood was actually spurting up from the wound bed. The patient states she was just lying in bed. Apparently physical therapy went into the room and when they pulled the sheath back they had noticed that there was significant amount of bright red blood. The patient denies any pain from surgical site, states that it had not bled like that before. Objective - Vital Signs Vital signs: Vital Signs Temp 98.1 F 08/11/22 00:00 Pulse 75 08/11/22 08:00 Resp 16 08/11/22 08:00 BP 125/73 08/11/22 08:00 Pulse Ox 97 08/11/22 08:00 FiO2 Intake & Output 08/10/22 08/11/22 08/11/22 18:59 06:59 18:59 Intake Total 480 Output Total 1200 350 Balance -720 -350 Weight 53 kg Intake: Oral 480 Output: Urine 1200 350 Other: Voiding Method External Catheter External Catheter - Exam General appearance: The patient is alert, oriented, appears in no acute distress. HET: Head is normocephalic and atraumatic. Pupils are equal and reactive. Neck: Supple without lymphadenopathy. Trachea midline. Extremities: Left lower extremity with multiple surgical incisions on the medial aspect of leg. Left groin incision site with area of dehiscence, not bleeding currently. Palpable small surrounding hematoma. The left upper thigh wound with dressing clean dry and intact. Left lower wound with dressing clean dry and intact. Palpable bypass graft, with Doppler signal left PT and DP. Sensorimotor intact. Neurological: No focal deficits. - Labs CBC & Chem 7: 08/11/22 10:08 08/11/22 09:18 Labs: Microbiology - Last 24 Hours (Table) 08/10/22 09:00 Gram Stain - Preliminary Pleural Fluid Body Fluid Culture - Preliminary 08/08/22 11:54 Blood Culture - Preliminary Blood No Growth after 48 hours Assessment and Plan Assessment: 1. COPD exacerbation 2. CHF exacerbation 3. Left groin surgical site dehiscence with active bleeding 4. Recent left lower extremity revascularization, with open wounds 5. Peripheral arterial disease 6. Atrial fibrillation 7. Acute Sepsis secondary to pseudomonas aeruginosa 8. Bilateral lower lobe pneumonia, sputum culture preliminary gram-negative bacilli Plan: 1. Apply pressure dressing and keep in place 2. Continue local wound care per wound care clinic instructions 3. Keep patient on bedrest for now, with head no more than 45 for 2-4 hours. No plans at this time for any vascular surgical intervention 4. Continue recommendations from infectious disease 5. CBC, BMP, PT/INR ordered 6. Continue medical management per medical team 7. Please notify hotel concierge vascular surgeon if any further bleeding. Thank you for this consultation. Follow-up with Dr. Garcia as scheduled. The impression and plan of care has been dictated as directed. Dr. Garcia I performed a history and examination of this patient, discussed the same with the dictator. I agree with the dictator's note ,documented as a scribe. Any additional findings or plans will be noted.
[2022-08-11 10:17] LABS: African American GFR (CKD) >90 (>60 ml/min/1.73 sqM); Blood Urea Nitrogen 20 mg/dL (7-17); Calcium 7.6 mg/dL (8.4-10.2); Chloride 97 mmol/L (98-107); Glucose 90 mg/dL (74-99); Non-African American GFR(CKD) >90 (>60 ml/min/1.73 sqM); Potassium 3.3 mmol/L (3.5-5.1); Sodium 141 mmol/L (137-145)
[2022-08-11 10:23] LABS: Anion Gap 0 mmol/L
[2022-08-11 10:26] LABS: Anisocytosis Slight; Basophils % (A) 0 %; Eosinophils # (A) 0.1 k/uL (0-0.7); Eosinophils % (A) 1 %; HCT 31.3 % (34.0-46.0); HGB 9.8 gm/dL (11.4-16.0); Hypochromasia Moderate; Lymphocytes # (A) 0.5 k/uL (1.0-4.8); Lymphocytes % (A) 4 %; MCH 30.5 pg (25.0-35.0); MCHC 31.3 g/dL (31.0-37.0); MCV 97.3 fL (80.0-100.0); Macrocytosis Slight; Monocytes # (A) 0.4 k/uL (0-1.0); Monocytes % (A) 4 %; Neutrophils % (A) 90 %; Platelet Count 247 k/uL (150-450); Poikilocytosis Moderate; RBC 3.22 m/uL (3.80-5.40); RDW 16.3 % (11.5-15.5); WBC 11.1 k/uL (3.8-10.6)
[2022-08-11 10:35] LABS: Carbon Dioxide 44 mmol/L (22-30)
[2022-08-11 10:45] LABS: Prothrombin Time 10.5 sec (9.0-12.0)
[2022-08-11] MEDS ORDERED: Potassium Replacement Protocol 1 EACH MISC MISCELLANE PRN ×2 (11:04→11:29)
--- NOTE | 2022-08-11 11:22 | P.PN ---
Subjective Progress Note Date: 08/11/22 67-year-old female patient who presented to the hospital having fever and some worsening shortness of breath. The patient is known to have advanced COPD and she has undergone [place] valve insertion regarding her advanced COPD and the patient has been maintained on a combination of Spiriva and Advair an outpatient basis. The patient is oxygen dependent. The patient does also use oxygen at 2 L per minute nasal cannula at baseline. Noted the patient was in the hospital approximately 3 weeks ago and the patient underwent a vascular/femoral endarterectomy on her left femoral artery for symptomatic claudication. At that time, I took care of this patient in the intensive care unit. The patient is also has severe peripheral vascular disease and she has undergone prior stenting to her bilateral common iliacs and external iliacs and subsequently she required the left femoral and left profunda endarterectomy and left femoral to tibial peroneal trunk bypass. Postop, she developed some swelling in lower extremity and she does have a 4.1 and in her upper thigh with some purulent drainage at the base. During this current hospital stay, the patient was found to be sept ic. Blood culture was positive for pseudomonas aeruginosa and the patient was seen by infectious disease and the patient was started on IV Zosyn. Meanwhile, the patient is having worsening shortness of breath, cough and congestion. She has excessively congestive cough. She is unable to bring up much of sputum. Her sputum sample has been collected and is showing some few gram-negative bacilli. Her initial white cell count was at 17.2 and dropped down to 14.7. Her pro calcitonin level was 8.0. The chest x-ray showing bilateral lower lobe pulmonary infiltrates and the patient also has a some mild thoracic kyphosis and anterior wedging of the lower was thoracic vertebral and order of 30%. On 08/09/2022, the patient is still complaining of shortness of breath. As mentioned, the patient advanced COPD. For now, sputum is growing gram-negative bacillus and the patient has blood cultures is positive for pseudomonas aeruginosa. The patient is on IV Zosyn. This is most likely bilateral pneumonia with secondary sepsis. At the same time, CAT scan of the chest was done that showed limited infiltration of the lung bases and small to moderate- sized bilateral pleural effusion the lung bases. There is extensive emphysema bilaterally. Meanwhile, the patient is still having a congested cough. Unable to bring up much of sputum. No fever. No chills. No other new complaints othe rwise for now. On 08/10/2022, the patient's condition is essentially the same. Sputum sample was positive for pseudomonas aeruginosa. Blood culture was also positive for pseudomonas aeruginosa the patient is currently on IV Zosyn. The patient bilateral pleural effusion. Ultrasound marking of the chest was done and I performed a left-sided thoracentesis today and the patient able to 10% pneumo thorax on the left. Total amount of fluid removed was around 250 mL. The patient remained hemodynamically stable. The patient reported improvement in her shortness of breath following the procedure. Nevertheless, she continues to have a congested cough. She is on Mucinex. Unable to bring up much of sputum. The WBC count is improving the white second of 11.6 with a hemoglobin of 9.8. BUN is at 25 with a creatinine of 0.5 and a sodium is at 140. On today's evaluation of 08/11/2022, the patient continues to have a congestive cough, unable to bring up much of sputum. She suffers from pseudomonal bilateral lower lobe pneumonia and bilateral pleural effusion. I performed a thoracentesis fluid on the left external to be transudate. She ended up having a temperature pneumothorax on the left. A repeat chest x-ray will be done today. Meanwhile, earlier this morning, the patient had an acute hemorrhage from her left groin. The surgical once from her previous vascular surgery the past. This wound was developed by vascular surgery. Pressure was applied and currently there is no evidence of any acute bleeding. She is weak. On her blood work, the WBC was 11.6 with a hemoglobin 9.8, BUN is 25 with a creatinine of 0.5 and a sodium level is 140 Objective - Vital Signs Vital signs: Vital Signs Temp 98.1 F 08/11/22 00:00 Pulse 75 08/11/22 08:00 Resp 16 08/11/22 08:00 BP 125/73 08/11/22 08:00 Pulse Ox 97 08/11/22 09:46 FiO2 Intake & Output 08/10/22 08/11/22 08/11/22 18:59 06:59 18:59 Intake Total 480 Output Total 1200 350 Balance -720 -350 Weight 53 kg Intake: Oral 480 Output: Urine 1200 350 Other: Voiding Method External Catheter External Catheter External Catheter - Exam GENERAL EXAM: Alert, pleasant 65-year-old female patient, on 2 L nasal cannula, comfortable in no apparent distress. HEAD: Normocephalic. EYES: Normal reaction of pupils, equal size. NOSE: Clear with pink turbinates. THROAT: No erythema or exudates. NECK: No masses, no JVD. CHEST: No chest wall deformity. LUNGS: Equal air entry with bilateral end expiratory wheeze, diminished. The rest of the quite diminished in lung bases especially the right lung base and there is scattered rhonchi throughout the lung sewell bilaterally CVS: S1 and S2 normal with no audible murmur, regular rhythm. ABDOMEN: No hepatosplenomegaly, normal bowel sounds, no guarding or rigidity. SPINE: No scoliosis or deformity SKIN: No rashes CENTRAL NERVOUS SYSTEM: No focal deficits, tone is normal in all 4 extremities. EXTREMITIES: Extremities: Left lower extremity with multiple surgical incisions on the medial aspect of leg. Left groin incision site with area of dehiscence, not bleeding currently. Palpable small surrounding hematoma. The left upper thigh wound with dressing clean dry and intact. Left lower wound with dressing clean dry and intact. Palpable bypass graft, with Doppler signal left PT and DP. Sensorimotor intact. - Labs CBC & Chem 7: 08/11/22 10:08 08/11/22 09:18 Labs: Abnormal Lab Results - Last 24 Hours (Table) 08/11/22 08/11/22 Range/Units 09:18 10:08 WBC 11.1 H (3.8-10.6) k/uL RBC 3.22 L (3.80-5.40) m/uL Hgb 9.8 L (11.4-16.0) gm/dL Hct 31.3 L (34.0-46.0) % RDW 16.3 H (11.5-15.5) % Neutrophils # 10.0 H (1.3-7.7) k/uL Lymphocytes # 0.5 L (1.0-4.8) k/uL Potassium 3.3 L (3.5-5.1) mmol/L Chloride 97 L (98-107) mmol/L Carbon Dioxide 44 H* (22-30) mmol/L BUN 20 H (7-17) mg/dL Creatinine 0.39 L (0.52-1.04) mg/dL Calcium 7.6 L (8.4-10.2) mg/dL Microbiology - Last 24 Hours (Table) 08/10/22 09:00 Gram Stain - Preliminary Pleural Fluid Body Fluid Culture - Preliminary 08/08/22 11:54 Blood Culture - Preliminary Blood No Growth after 48 hours Assessment and Plan Plan: Hospital-acquired pseudomonal pneumonia. The patient presented with Bilateral lower lobe pneumonia, likely gram-negative hospital-acquired pneumonia with Pseudomonas. The sputum sample was positive for pseudomonas aeruginosa. Blood cultures were also positive. Currently on IV Zosyn. The patient has increased infiltration of the lung base bilaterally with bilateral lower lobe con solidation. The patient continues to have dense consolidation of the lung bases on yesterday's chest x-ray. The sputum is positive for pseudomonas aeruginosa. Remains on IV Zosyn. Acute hypoxic respiratory failure currently on 4 L of oxygen by nasal cannula Bilateral pleural effusion moderate in size, postthoracentesis of the left lung, total of 250 mL of fluid removed, developed 10% pneumothorax, hemodynamically stable, clinically stable and improved following the procedure. Acute sepsis secondary to pseudomonas aeruginosa currently on IV Zosyn. The patient was quite ill and she had leukocytosis and elevated pro-calcitonin level at time of admission, white cell count is improving Surgical wound dehiscence with acute bleed, currently inactive and stable, last her surgical the case Acute leukocytosis, improving Shortness of breath secondary to above Acute COPD exacerbation secondary to above Advanced COPD with previous insertion of [place] valve and the patient's of some chronic hypoxic respiratory failure due to advanced COPD Dehiscence of surgical wound. The patient has a surgical wound with a white draining base and the upper thigh on the left Multifocal atrial tachycardia, current mechanism is sinus CHF with preserved LV function and ejection fraction of 50-55% Chronic hypoxic respiratory failure maternal O2 at 2 L secondary to COPD Severe peripheral vascular disease. The patient has undergone multiple vascular intervention and stenting of the common iliacs and external iliacs and the patient is post endarterectomy of the femoral artery and profunda on the left with a femoral to tibial peroneal trunk bypass History of breast cancer History of Sjogren's disease maintained on Plaquenil outpatient basis Hyperlipidemia Chronic steroid dependent and the patient admitted on prednisone 10 mg daily basis Plan Aggressive pulmonary toileting Repeat chest x-ray from today Pleural fluid was a candidate, awaiting cytology and cultures Continue IV Zosyn We repeat the chest x-ray today We monitored 10% pneumothorax on the left, the patient is asymptomatic at this point in time in terms of the pneumothorax Mucinex DM flutter valve Patient is currently on 40 mg of prednisone as part of burst taper We'll put the patient on DuoNeb nebulized treatments [id number] XARELTO will be placed on hold We'll care with wet-to-dry to the left thigh We'll continue to follow. Titrate oxygen flow to maintain a saturation above 90%.
[2022-08-11] MEDS: POTASSIUM CHLORIDE ER 20 MEQ TAB.ER PO SCH ×2 (12:27→12:28)
--- NOTE | 2022-08-11 13:02 | P.PN ---
Subjective Progress Note Date: 08/11/22 Principal diagnosis: Pseudomonas bacteremia Patient is a 67-year-old female with a past medical history significant for hypertension GERD atrial fibrillation peripheral arterial disease left breast cancer presenting to the ER for evaluation of increasing shortness of breath patient did have fever and elevated white count and recently did have a left lower extremity muscular procedure with open wound to the left medial thigh and left leg subsequently with evidence of pseudomonas bacteremia. Patient is status post left-sided thoracocentesis completed on 08/10/2022 with removal of 250 mL turbid fluid On today's evaluation that is 08/11/2022, the patient continues to be afebrile, the patient is breathing comfortably currently on 2 L nasal cannula oxygen, patient denies having any chest pain , the patient cough has decreased in intensity and no more sputum production. The patient has been complaining of bleeding from her left thigh wound which seemed to have been evaluated by the vascular surgery Objective - Vital Signs Vital signs: Vital Signs Temp 98.1 F 08/11/22 00:00 Pulse 75 08/11/22 08:00 Resp 16 08/11/22 08:00 BP 125/73 08/11/22 08:00 Pulse Ox 97 08/11/22 09:46 FiO2 Intake & Output 08/10/22 08/11/22 08/11/22 18:59 06:59 18:59 Intake Total 480 Output Total 1200 350 Balance -720 -350 Weight 53 kg Intake: Oral 480 Output: Urine 1200 350 Other: Voiding Method External Catheter External Catheter External Catheter - Exam GENERAL DESCRIPTION: An elderly female lying in bed in no distress RESPIRATORY SYSTEM: Unlabored breathing , decreased breath sounds at bases HEART: S1 S2 regular rate and rhythm , ABDOMEN: Soft , no tenderness EXTREMITIES: Left thigh wound and left leg wound is currently dressed no drainage on the dressing - Labs CBC & Chem 7: 08/11/22 10:08 08/11/22 09:18 Labs: Abnormal Lab Results - Last 24 Hours (Table) 08/11/22 08/11/22 Range/Units 09:18 10:08 WBC 11.1 H (3.8-10.6) k/uL RBC 3.22 L (3.80-5.40) m/uL Hgb 9.8 L (11.4-16.0) gm/dL Hct 31.3 L (34.0-46.0) % RDW 16.3 H (11.5-15.5) % Neutrophils # 10.0 H (1.3-7.7) k/uL Lymphocytes # 0.5 L (1.0-4.8) k/uL Potassium 3.3 L (3.5-5.1) mmol/L Chloride 97 L (98-107) mmol/L Carbon Dioxide 44 H* (22-30) mmol/L BUN 20 H (7-17) mg/dL Creatinine 0.39 L (0.52-1.04) mg/dL Calcium 7.6 L (8.4-10.2) mg/dL Microbiology - Last 24 Hours (Table) 08/10/22 09:00 Gram Stain - Preliminary Pleural Fluid Body Fluid Culture - Preliminary 08/08/22 11:54 Blood Culture - Preliminary Blood No Growth after 48 hours Assessment and Plan (1) Bacteremia due to Pseudomonas Current Visit: Yes Status: Acute Code(s): R78.81 - BACTEREMIA; B96.5 - PSEUDOMONAS (MALLEI) CAUSING DISEASES CL[facility]SD [facility] SNOMED Code(s): 8273932979 Plan: 1patient presented to hospital with sepsis in this patient who did a fever elevated white tachycardia and now with evidence of gram-negative bacteremia source questionably infected left lower extremity wound with a recent vascular procedure for PAD versus pneumonia however chest x-ray is most interstitial infiltrate although the patient did have elevated procalcitonin sputum cultures have been obtained also be followed, left lower extremity wound that has some maceration and purulent material could be the source of this bacteremia as well 2-blood cultures repeat has been negative so far 3-patient did have some clinical improvement patient to continue with the Zosyn and monitor clinical course closely
--- NOTE | 2022-08-11 13:44 | XR ---
EXAMINATION TYPE: XR chest 1V DATE OF EXAM: 08/11/2022 COMPARISON: 08/10/2022 HISTORY: Left thoracentesis. TECHNIQUE: Single frontal view of the chest is obtained. IMPRESSION: This likely trace pleural effusions bilaterally. No focal consolidation is seen. Unchanged interstiti al changes are noted throughout the mid and lower lungs. The cardiac silhouette is mildly enlarged. Unchanged left pneumothorax..
--- NOTE | 2022-08-11 13:53 | US ---
EXAMINATION TYPE: US lower ext pseudo artery LT DATE OF EXAM: 08/11/2022 COMPARISON: NONE CLINICAL HISTORY: bleeding from left femoral surgical site. Left fem pop bypass 2 weeks ago, bleeding from incision site left groin this morning EXAM PERFORMED: Grayscale and color Doppler duplex imaging performed of the groin, post cardiac daylin ter to assess for pseudoaneurysm. SIDE PERFORMED: left Color and Waveform Doppler performed to assess for the presence of pseudoaneurysm; Is there ultrasound evidence of a pseudoaneurysm: no Is there evidence of AV shunting: no Is there a fluid collection present: complex hypoechoic areas noted = 5.1 x 1.2 x 3.7cm and 6.3 x 2 .4 x 4.0cm ??possible hematomas IMPRESSION: 1. No evidence of pseudoaneurysm. 2. There is a complex hypoechoic areas noted measuring 5.1 and 6.3 cm respectively. Differential diag nosis would include a hematoma. Abscess not entirely excluded correlate clinically.
--- NOTE | 2022-08-11 14:48 | P.PN ---
Subjective 67-year-old female patient; past medical history significant for lower extremities peripheral arterial disease as well as severe COPD and chronic hy poxic respiratory failure on oxygen and also hypertension and dyslipidemia and history of multifocal atrial tachycardia, presented to the hospital complaining of shortness of breath. The patient does have a baseline shortness of breath and she is on oxygen continuously at 2 L. For the last few days she has been experiencing increasing in the shortness of breath associated according to her and her with fever and cough productive of whitish sputum. Beside that she developed bilateral lower extremities edema. No symptoms of any chest pain or chest discomfort or dizziness or lightheadedness but she has been experiencing symptoms of heart racing and fluttering was no presyncope or syn cope. The patient and her called ambulance and the patient was brought to the emergency department for further evaluation. During this admission she underwent a workup including an EKG showing what it seems to be multifocal atrial tachycardia with differential diagnosis of atrial fibrillation and also she underwent cardiac enzymes showed mildly abnormal troponin. The chest x-ray showed findings consistent with CHF. The rest of the blood work came in to be unremarkable. On examination she was in mild respiratory distress. She was also coughing during the examination. She does have bilateral expiratory wheezing and mild bilateral lower except his edema. Reviewing the vital signs revealed marginally low blood pressure with systolic pressure in the 90s. Currently she is on Cardizem IV and she is also on Lasix IV. 08/07/2022 This is a pleasant 67 years old female with multiple medical problems who was admitted initially because of dyspnea found to have acute CHF exacerbation and also she has evidence of bilateral pneumonia, she had a fever of 101.3 on admission. She still feels generally weak and tired, mildly tachypneic. Been followed by cardiology and infectious disease dating with positive blood culture for pseudomonas. And covered with abdomen Lasix 20 mg, IV Zosyn. Also she has history of COPD with chronic hypoxic respiratory failure on 2 L of oxygen at home, currently she is using before liters per minute. She has some evidence of diminished air entry in both sides under going to start prednisone 40 mg daily. She is on home dose of 0.5 mg twice a day for paroxysmal atrial fibrillation. Also she is on aspirin 325 mg. also patient follow up with Dr. Curran reported recent revascularizations surgery for his left lower extremity vascular disease, she still Dr. Curran last week and was doing well, she supposed to see him today so he was consulted 08/08/2022 Patient awake and alert, she still have little short of breath and tachypnea, however she feels better. Her cough feels better bleeding looks the same, she still have exertional dyspnea with walking. She still feels generally weak. States to have limited air entry on both lung sewell, no more fever and vitals are stable. Her abdomen Lasix switched to oral pills. [employer] Rec[employer] on the case and she was kept on Xarelto and metoprolol and Cardizem for her A. fib, Patient also have evidence with pseudomonas bacteremia, source could be pneumonia versus left lower extremity wound, culture is been followed closely. Patient is covered with Zosyn. Infectious disease team on the case. 08/09/2022 Patient states that her leg feels better today, she still complaining of from shortness of breath although she has this wheezing and better air entry limitations to there. Also ultrasound showing bilateral pleural effusion. Vitals are stable. Patient remains on Zosyn, prednisone 40 mg and oral Lasix 20 mg twice daily. 08/10/2022 Patient is still improving slowly and gradually regarding her pneumonia, she sent in bed most of the time, she has recovered is improving with Robitussin-DM which is continued. Chest x-ray from today show significant improvement compared to a few days ago. She underwent a thoracocentesis with 250 mL of turbid fluid removed. Sputum culture is growing Pseudomonas same as blood culture, patient is currently covered with Zosyn. Also she is on a prednisone 40 mg for her possible COPD element. Cardiology team already signed off with recommendation to follow up with Dr. Stewart as an outpatient. 08/11/2022 Patient today awake alert, she still feels short of breath although reports some improvement, she has weak cough and difficult to bring in her phlegm up. Also she's been complaining from bleeding from her left groin area. A sputum culture blood culture both grown Pseudomonas, she underwent thoracocentesis and cytology is pending, she did have some pneumothorax, pulmonary team on the case, her breathing is a stable and actually is improving. Vascular surgery on the case and 0 to was put on hold because of bleeding from the surgical site of her left leg. She kept on prednisone 40 mg as per a burst taper as well as Zosyn. Surgical consult is on the case Patient remains critical. Objective - Vital Signs Vital signs: Vital Signs Temp 98.1 F 08/11/22 00:00 Pulse 64 08/11/22 13:56 Resp 16 08/11/22 12:00 BP 107/51 08/11/22 12:00 Pulse Ox 97 08/11/22 12:00 FiO2 Intake & Output 08/10/22 08/11/22 08/11/22 18:59 06:59 18:59 Intake Total 480 118 Output Total 1200 350 Balance -720 -350 118 Weight 53 kg Intake: Oral 480 118 Output: Urine 1200 350 Other: Voiding Method External Catheter External Catheter External Catheter - Exam -GENERAL: The patient is alert and oriented x3, not in any acute distress. Well developed, well nourished. Generally weak HEENT: Pupils are round and equally reacting to light. EOMI. No scleral icterus. No conjunctival pallor. Normocephalic, atraumatic. No pharyngeal erythema. No thyromegaly. CARDIOVASCULAR: S1 and S2 present. No murmurs, rubs, or gallops. -PULMONARY: Chest is clear to auscultation, no wheezing or crackles. Decreased air entry on both sides ABDOMEN: Soft, nontender, nondistended, normoactive bowel sounds. No palpable organomegaly. MUSCULOSKELETAL: No joint swelling or deformity. -EXTREMITIES: No cyanosis, clubbing, or pedal edema. Open wound on the left leg NEUROLOGICAL: Gross neurological examination did not reveal any focal deficits. SKIN: No rashes. no petechiae. - Labs CBC & Chem 7: 08/11/22 10:08 08/11/22 09:18 Labs: Abnormal Lab Results - Last 24 Hours (Table) 08/11/22 08/11/22 Range/Units 09:18 10:08 WBC 11.1 H (3.8-10.6) k/uL RBC 3.22 L (3.80-5.40) m/uL Hgb 9.8 L (11.4-16.0) gm/dL Hct 31.3 L (34.0-46.0) % RDW 16.3 H (11.5-15.5) % Neutrophils # 10.0 H (1.3-7.7) k/uL Lymphocytes # 0.5 L (1.0-4.8) k/uL Potassium 3.3 L (3.5-5.1) mmol/L Chloride 97 L (98-107) mmol/L Carbon Dioxide 44 H* (22-30) mmol/L BUN 20 H (7-17) mg/dL Creatinine 0.39 L (0.52-1.04) mg/dL Calcium 7.6 L (8.4-10.2) mg/dL Microbiology - Last 24 Hours (Table) 08/08/22 11:54 Blood Culture - Preliminary Blood No Growth after 72 hours 08/10/22 09:00 Gram Stain - Preliminary Pleural Fluid Body Fluid Culture - Preliminary Assessment and Plan Assessment: -Bilateral pneumonia secondary to pseudomonas. Status post left thoracocentesis with 50 mL of turbid fluid removed on 08/10 -Pseudomonas bacteremia -Acute CHF exacerbation -Paroxysmal atrial fibrillation's with elevated troponin -Acute COPD exacerbation -Moderate left pneumothorax -Acute on chronic hypoxic respiratory failure -Cyanosis present on admission with fever and leukocytosis -Peripheral vascular disease status post recent revascularization of the left lower extremity with open wound, with bleeding from one side and hematoma of the left groin Plan: Continue with Zosyn Xeralto (on hold during to bleeding) Continue with prednisone burst taper and breathing treatment Continue with oral Lasix, cardiology signed off pulmonary, vascular surgeon and infectious disease consult Labs and medication were reviewed.. Continue same treatment. Continue with symptomatic treatment. Resume home medication. Monitor labs and vitals. DVT and GI prophylaxis. Further recommendations as per clinical course of the patient DVT prophylaxis: Xeralto (on hold) c/w mechanical GI Prophylaxis: Ppi PT/OT: Pending Prognosis is guarded
[2022-08-11] MEDS: COLLAGENASE 250 UNIT/GM OINTMENT 30 GM TUBE TOPICAL SCH (16:55)
[2022-08-11] MEDS: ATORVASTATIN 80 MG TAB PO SCH (20:16)
[2022-08-12] MEDS: SODIUM CHLORIDE 0.9% 1,000 ML IV SCH (05:43)
[2022-08-12] MEDS: PANTOPRAZOLE 40 MG TABLET PO SCH ×2 (05:43→18:18)
[2022-08-12] MEDS: ALBUTEROL NEBULIZED 2.5 MG/3 ML INHALATION SCH ×3 (07:43→21:23)
[2022-08-12] MEDS: TIOTROPIUM 2.5 MCG INHALER INHALATION SCH (07:44)
[2022-08-12] MEDS: NON FORMULARY DRUG (Fluticasone Propion/Salmeterol [Advair 500-50 Diskus] 1 EACH Blst.W.De INHALATION SCH ×2 (07:44→21:23)
[2022-08-12] MEDS: PIPERACILLIN-TAZOBACTAM 3.375 GM in SODIUM CHLORIDE 0.9% 100 ML IVPB SCH ×3 (08:19→23:48)
[2022-08-12] MEDS: METOPROLOL TARTRATE 25 MG TAB PO SCH ×2 (08:20→20:32)
[2022-08-12] MEDS: FUROSEMIDE 20 MG TAB PO SCH ×2 (08:20→15:11)
[2022-08-12] MEDS: LETROZOLE 2.5 MG TAB PO SCH (08:20)
[2022-08-12] MEDS: GABAPENTIN 300 MG CAP PO SCH ×3 (08:20→20:32)
[2022-08-12] MEDS: predniSONE 20 MG TAB PO SCH (08:20)
[2022-08-12] MEDS: CHOLECALCIFEROL 25 MCG (1000 IU) TABLET PO SCH (08:20)
[2022-08-12] MEDS: DILTIAZEM ORAL 30 MG TAB PO SCH ×3 (08:20→20:32)
[2022-08-12] MEDS: DOCUSATE 100 MG CAP PO SCH (08:20)
[2022-08-12] MEDS: ASPIRIN 81 MG PO SCH (08:20)
[2022-08-12] MEDS: HYDROXYCHLOROQUINE SULFATE 200 MG TAB PO SCH ×2 (08:21→20:33)
[2022-08-12] MEDS: guaiFENesin-DM 600/30MG 1 EACH TAB.ER.12H PO SCH ×2 (08:21→20:33)
--- NOTE | 2022-08-12 09:43 | P.PN ---
Subjective Progress Note Date: 08/12/22 67-year-old female patient who presented to the hospital having fever and some worsening shortness of breath. The patient is known to have advanced COPD and she has undergone Toston valve insertion regarding her advanced COPD and the patient has been maintained on a combination of Spiriva and Advair an outpatient basis. The patient is oxygen dependent. The patient does also use oxygen at 2 L per minute nasal cannula at baseline. Noted the patient was in the hospital approximately 3 weeks ago and the patient underwent a vascular/femoral endarterectomy on her left femoral artery for symptomatic claudication. At that time, I took care of this patient in the intensive care unit. The patient is also has severe peripheral vascular disease and she has undergone prior stenting to her bilateral common iliacs and external iliacs and subsequently she required the left femoral and left profunda endarterectomy and left femoral to tibial peroneal trunk bypass. Postop, she developed some swelling in lower extremity and she does have a 4.1 and in her upper thigh with some purulent drainage at the base. During this current hospital stay, the patient was found to be sept ic. Blood culture was positive for pseudomonas aeruginosa and the patient was seen by infectious disease and the patient was started on IV Zosyn. Meanwhile, the patient is having worsening shortness of breath, cough and congestion. She has excessively congestive cough. She is unable to bring up much of sputum. Her sputum sample has been collected and is showing some few gram-negative bacilli. Her initial white cell count was at 17.2 and dropped down to 14.7. Her pro calcitonin level was 8.0. The chest x-ray showing bilateral lower lobe pulmonary infiltrates and the patient also has a some mild thoracic kyphosis and anterior wedging of the lower was thoracic vertebral and order of 30%. On 08/09/2022, the patient is still complaining of shortness of breath. As mentioned, the patient advanced COPD. For now, sputum is growing gram-negative bacillus and the patient has blood cultures is positive for pseudomonas aeruginosa. The patient is on IV Zosyn. This is most likely bilateral pneumonia with secondary sepsis. At the same time, CAT scan of the chest was done that showed limited infiltration of the lung bases and small to moderate- sized bilateral pleural effusion the lung bases. There is extensive emphysema bilaterally. Meanwhile, the patient is still having a congested cough. Unable to bring up much of sputum. No fever. No chills. No other new complaints othe rwise for now. On 08/10/2022, the patient's condition is essentially the same. Sputum sample was positive for pseudomonas aeruginosa. Blood culture was also positive for pseudomonas aeruginosa the patient is currently on IV Zosyn. The patient bilateral pleural effusion. Ultrasound marking of the chest was done and I performed a left-sided thoracentesis today and the patient able to 10% pneumo thorax on the left. Total amount of fluid removed was around 250 mL. The patient remained hemodynamically stable. The patient reported improvement in her shortness of breath following the procedure. Nevertheless, she continues to have a congested cough. She is on Mucinex. Unable to bring up much of sputum. The WBC count is improving the white second of 11.6 with a hemoglobin of 9.8. BUN is at 25 with a creatinine of 0.5 and a sodium is at 140. On today's evaluation of 08/11/2022, the patient continues to have a congestive cough, unable to bring up much of sputum. She suffers from pseudomonal bilateral lower lobe pneumonia and bilateral pleural effusion. I performed a thoracentesis fluid on the left external to be transudate. She ended up having a temperature pneumothorax on the left. A repeat chest x-ray will be done today. Meanwhile, earlier this morning, the patient had an acute hemorrhage from her left groin. The surgical once from her previous vascular surgery the past. This wound was developed by vascular surgery. Pressure was applied and currently there is no evidence of any acute bleeding. She is weak. On her blood work, the WBC was 11.6 with a hemoglobin 9.8, BUN is 25 with a creatinine of 0.5 and a sodium level is 140 08/12/2022, slightly improved compared to yesterday, continued to have congestive cough. The repeat chest x-ray was done that showed persistent lower lobe pneumonia. The left-sided pneumothorax remains unchanged. The pleural fluid that was aspirated is a transudate. No other new complaints. No active bleeding from the surgical one-sided. No new labs from today. Remains on bronchodilators. Remains on IV Zosyn. Remains on prednisone. She is complaining of heartburn. She'll be given Protonix in addition to Tums for her ongoing active symptoms of heartburn. Objective - Vital Signs Vital signs: Vital Signs Temp 98.0 F 08/12/22 08:18 Pulse 79 08/12/22 08:18 Resp 18 08/12/22 08:18 BP 115/62 08/12/22 08:18 Pulse Ox 99 08/12/22 08:18 FiO2 Intake & Output 08/11/22 08/12/22 08/12/22 18:59 06:59 18:59 Intake Total 236 118 Output Total 550 Balance 236 -550 118 Intake: Oral 236 118 Output: Urine 550 Other: Voiding Method External Catheter External Catheter - Exam GENERAL EXAM: Alert, pleasant 65-year-old female patient, on 2 L nasal cannula, comfortable in no apparent distress. HEAD: Normocephalic. EYES: Normal reaction of pupils, equal size. NOSE: Clear with pink turbinates. THROAT: No erythema or exudates. NECK: No masses, no JVD. CHEST: No chest wall deformity. LUNGS: Equal air entry with bilateral end expiratory wheeze, diminished. The rest of the quite diminished in lung bases especially the right lung base and there is scattered rhonchi throughout the lung sewell bilaterally CVS: S1 and S2 normal with no audible murmur, regular rhythm. ABDOMEN: No hepatosplenomegaly, normal bowel sounds, no guarding or rigidity. SPINE: No scoliosis or deformity SKIN: No rashes CENTRAL NERVOUS SYSTEM: No focal deficits, tone is normal in all 4 extremities. EXTREMITIES: Extremities: Left lower extremity with multiple surgical incisi ons on the medial aspect of leg. Left groin incision site with area of dehiscence, not bleeding currently. Palpable small surrounding hematoma. The left upper thigh wound with dressing clean dry and intact. Left lower wound with dressing clean dry and intact. Palpable bypass graft, with Doppler signal left PT and DP. Sensorimotor intact. - Labs CBC & Chem 7: 08/11/22 10:08 08/11/22 09:18 Labs: Abnormal Lab Results - Last 24 Hours (Table) 08/11/22 08/11/22 Range/Units 09:18 10:08 WBC 11.1 H (3.8-10.6) k/uL RBC 3.22 L (3.80-5.40) m/uL Hgb 9.8 L (11.4-16.0) gm/dL Hct 31.3 L (34.0-46.0) % RDW 16.3 H (11.5-15.5) % Neutrophils # 10.0 H (1.3-7.7) k/uL Lymphocytes # 0.5 L (1.0-4.8) k/uL Potassium 3.3 L (3.5-5.1) mmol/L Chloride 97 L (98-107) mmol/L Carbon Dioxide 44 H* (22-30) mmol/L BUN 20 H (7-17) mg/dL Creatinine 0.39 L (0.52-1.04) mg/dL Calcium 7.6 L (8.4-10.2) mg/dL Microbiology - Last 24 Hours (Table) 08/08/22 11:54 Blood Culture - Preliminary Blood No Growth after 72 hours 08/10/22 09:00 Gram Stain - Preliminary Pleural Fluid Body Fluid Culture - Preliminary Assessment and Plan Plan: Hospital-acquired pseudomonal pneumonia. The patient presented with Bilateral lower lobe pneumonia, likely gram-negative hospital-acquired pneumonia with Pseudomonas. The sputum sample was positive for pseudomonas aeruginosa. Blood cultures were also positive. Currently on IV Zosyn. The patient has increased infiltration of the lung base bilaterally with bilateral lower lobe consolidation. The patient continues to have dense consolidation of the lung bases on yesterday's chest x-ray. The sputum is positive for pseudomonas aeruginosa. Remains on IV Zosyn. Acute hypoxic respiratory failure currently on 4 L of oxygen by nasal cannula Bilateral pleural effusion moderate in size, postthoracentesis of the left lung, total of 250 mL of fluid removed, developed 10% pneumothorax, hemodynamically stable, clinically stable and improved following the procedure. Acute sepsis secondary to pseudomonas aeruginosa currently on IV Zosyn. The patient was quite ill and she had leukocytosis and elevated pro-calcitonin level at time of admission, white cell count is improving Surgical wound dehiscence with acute bleed, currently inactive and stable, last her surgical the case Acute leukocytosis, improving Shortness of breath secondary to above Acute COPD exacerbation secondary to above Advanced COPD with previous insertion of Toston valve and the patient's of some chronic hypoxic respiratory failure due to advanced COPD Dehiscence of surgical wound. The patient has a surgical wound with a white draining base and the upper thigh on the left Multifocal atrial tachycardia, current mechanism is sinus CHF with preserved LV function and ejection fraction of 50-55% Chronic hypoxic respiratory failure maternal O2 at 2 L secondary to COPD Severe peripheral vascular disease. The patient has undergone multiple vascular intervention and stenting of the common iliacs and external iliacs and the patient is post endarterectomy of the femoral artery and profunda on the left with a femoral to tibial peroneal trunk bypass History of breast cancer History of Sjogren's disease maintained on Plaquenil outpatient basis Hyperlipidemia Chronic steroid dependent and the patient admitted on prednisone 10 mg daily basis Heartburn currently on Protonix and Tums will be added Plan Chest x-ray findings from yesterday were essentially stable Continue same treatment Aggressive pulmonary toileting Pleural fluid was a transudate, awaiting cytology and cultures Continue IV Zosyn We monitored 10% pneumothorax on the left, the patient is asymptomatic at this point in time in terms of the pneumothorax Mucinex DM flutter valve Patient is currently on 40 mg of prednisone as part of burst taper We'll put the patient on DuoNeb nebulized treatments [id number] XARELTO will be placed on hold Tums in combination with Protonix for heartburn We'll care with wet-to-dry to the left thigh We'll continue to follow. Titrate oxygen flow to maintain a saturation above 90% Is a chest and the patient may need bronchoscopy at the later stages the patient still has significant respiratory secretions that she is unable to cough.
--- NOTE | 2022-08-12 10:23 | P.PN ---
Subjective Progress Note Date: 08/12/22 Principal diagnosis: Pseudomonas bacteremia Patient is a 67-year-old female with a past medical history significant for hypertension GERD atrial fibrillation peripheral arterial disease left breast cancer presenting to the ER for evaluation of increasing shortness of breath patient did have fever and elevated white count and recently did have a left lower extremity muscular procedure with open wound to the left medial thigh and left leg subsequently with evidence of pseudomonas bacteremia. Patient is status post left-sided thoracocentesis completed on 08/10/2022 with removal of 250 mL turbid fluid On today's evaluation that is 08/12/2022, the patient denies any fever or chills, the patient is breathing comfortably on 2 L nasal cannula oxygen, patient denies having any chest pain , the patient cough has decreased in intensity and mostly dry in nature, The patient bleeding from her left thigh wound has stopped Objective - Vital Signs Vital signs: Vital Signs Temp 98.0 F 08/12/22 08:18 Pulse 79 08/12/22 08:18 Resp 18 08/12/22 08:18 BP 115/62 08/12/22 08:18 Pulse Ox 99 08/12/22 08:18 FiO2 Intake & Output 08/11/22 08/12/22 08/12/22 18:59 06:59 18:59 Intake Total 236 118 Output Total 550 Balance 236 -550 118 Intake: Oral 236 118 Output: Urine 550 Other: Voiding Method External Catheter External Catheter - Exam GENERAL DESCRIPTION: An elderly female lying in bed in no distress RESPIRATORY SYSTEM: Unlabored breathing , decreased breath sounds at bases HEART: S1 S2 regular rate and rhythm , ABDOMEN: Soft , no tenderness EXTREMITIES: Left thigh wound and left leg wound is currently dressed no drainage on the dressing - Labs CBC & Chem 7: 08/11/22 10:08 08/11/22 09:18 Labs: Abnormal Lab Results - Last 24 Hours (Table) 08/11/22 08/11/22 Range/Units 09:18 10:08 WBC 11.1 H (3.8-10.6) k/uL RBC 3.22 L (3.80-5.40) m/uL Hgb 9.8 L (11.4-16.0) gm/dL Hct 31.3 L (34.0-46.0) % RDW 16.3 H (11.5-15.5) % Neutrophils # 10.0 H (1.3-7.7) k/uL Lymphocytes # 0.5 L (1.0-4.8) k/uL Potassium 3.3 L (3.5-5.1) mmol/L Chloride 97 L (98-107) mmol/L Carbon Dioxide 44 H* (22-30) mmol/L BUN 20 H (7-17) mg/dL Creatinine 0.39 L (0.52-1.04) mg/dL Calcium 7.6 L (8.4-10.2) mg/dL Microbiology - Last 24 Hours (Table) 08/08/22 11:54 Blood Culture - Preliminary Blood No Growth after 72 hours 08/10/22 09:00 Gram Stain - Preliminary Pleural Fluid Body Fluid Culture - Preliminary Assessment and Plan (1) Bacteremia due to Pseudomonas Current Visit: Yes Status: Acute Code(s): R78.81 - BACTEREMIA; B96.5 - PSEUDOMONAS (MALLEI) CAUSING DISEASES [facility] Code(s): 0413776234 Plan: 1patient presented to hospital with sepsis in this patient who did a fever elevated white tachycardia and now with evidence of gram-negative bacteremia source questionably infected left lower extremity wound with a recent vascular procedure for PAD versus pneumonia however chest x-ray is most interstitial infiltrate although the patient did have elevated procalcitonin sputum cultures have been obtained also be followed, left lower extremity wound that has some maceration and purulent material could be the source of this bacteremia as well 2-blood cultures repeat has been negative so far 3-patient is slowly clinical Improving and will continue with the Zosyn , family the bedside questions were answered Time with Patient: Less than 30
--- NOTE | 2022-08-12 11:56 | P.PN ---
Subjective 67-year-old female patient; past medical history significant for lower extremities peripheral arterial disease as well as severe COPD and chronic hy poxic respiratory failure on oxygen and also hypertension and dyslipidemia and history of multifocal atrial tachycardia, presented to the hospital complaining of shortness of breath. The patient does have a baseline shortness of breath and she is on oxygen continuously at 2 L. For the last few days she has been experiencing increasing in the shortness of breath associated according to her and her with fever and cough productive of whitish sputum. Beside that she developed bilateral lower extremities edema. No symptoms of any chest pain or chest discomfort or dizziness or lightheadedness but she has been experiencing symptoms of heart racing and fluttering was no presyncope or syn cope. The patient and her called ambulance and the patient was brought to the emergency department for further evaluation. During this admission she underwent a workup including an EKG showing what it seems to be multifocal atrial tachycardia with differential diagnosis of atrial fibrillation and also she underwent cardiac enzymes showed mildly abnormal troponin. The chest x-ray showed findings consistent with CHF. The rest of the blood work came in to be unremarkable. On examination she was in mild respiratory distress. She was also coughing during the examination. She does have bilateral expiratory wheezing and mild bilateral lower except his edema. Reviewing the vital signs revealed marginally low blood pressure with systolic pressure in the 90s. Currently she is on Cardizem IV and she is also on Lasix IV. 08/07/2022 This is a pleasant 67 years old female with multiple medical problems who was admitted initially because of dyspnea found to have acute CHF exacerbation and also she has evidence of bilateral pneumonia, she had a fever of 101.3 on admission. She still feels generally weak and tired, mildly tachypneic. Been followed by cardiology and infectious disease dating with positive blood culture for pseudomonas. And covered with abdomen Lasix 20 mg, IV Zosyn. Also she has history of COPD with chronic hypoxic respiratory failure on 2 L of oxygen at home, currently she is using before liters per minute. She has some evidence of diminished air entry in both sides under going to start prednisone 40 mg daily. She is on home dose of 0.5 mg twice a day for paroxysmal atrial fibrillation. Also she is on aspirin 325 mg. also patient follow up with Dr. Curran reported recent revascularizations surgery for his left lower extremity vascular disease, she still Dr. Curran last week and was doing well, she supposed to see him today so he was consulted 08/08/2022 Patient awake and alert, she still have little short of breath and tachypnea, however she feels better. Her cough feels better bleeding looks the same, she still have exertional dyspnea with walking. She still feels generally weak. States to have limited air entry on both lung sewell, no more fever and vitals are stable. Her abdomen Lasix switched to oral pills. W[employer] Blender on the case and she was kept on Xarelto and metoprolol and Cardizem for her A. fib, Patient also have evidence with pseudomonas bacteremia, source could be pneumonia versus left lower extremity wound, culture is been followed closely. Patient is covered with Zosyn. Infectious disease team on the case. 08/09/2022 Patient states that her leg feels better today, she still complaining of from shortness of breath although she has this wheezing and better air entry limitations to there. Also ultrasound showing bilateral pleural effusion. Vitals are stable. Patient remains on Zosyn, prednisone 40 mg and oral Lasix 20 mg twice daily. 08/10/2022 Patient is still improving slowly and gradually regarding her pneumonia, she sent in bed most of the time, she has recovered is improving with Robitussin-DM which is continued. Chest x-ray from today show significant improvement compared to a few days ago. She underwent a thoracocentesis with 250 mL of turbid fluid removed. Sputum culture is growing Pseudomonas same as blood culture, patient is currently covered with Zosyn. Also she is on a prednisone 40 mg for her possible COPD element. Cardiology team already signed off with recommendation to follow up with Dr. Stewart as an outpatient. 08/11/2022 Patient today awake alert, she still feels short of breath although reports some improvement, she has weak cough and difficult to bring in her phlegm up. Also she's been complaining from bleeding from her left groin area. A sputum culture blood culture both grown Pseudomonas, she underwent thoracocentesis and cytology is pending, she did have some pneumothorax, pulmonary team on the case, her breathing is a stable and actually is improving. Vascular surgery on the case and 0 to was put on hold because of bleeding from the surgical site of her left leg. She kept on prednisone 40 mg as per a burst taper as well as Zosyn. Surgical consult is on the case Patient remains critical. 08/12/2021 Patient had actually looks much better today compared to yesterday, she is more relaxed and pleasant she still have some dyspnea, her coughing is stronger than yesterday as well. She still hemodynamically stable. Oxygenation is improving. Yesterday she had bleeding from her left groin wound related to vascular surgery, no more bleeding today. Result is on hold. Patient remains on Zosyn Cytology is still pending Objective - Vital Signs Vital signs: Vital Signs Temp 98.0 F 08/12/22 08:18 Pulse 79 08/12/22 08:18 Resp 18 08/12/22 08:18 BP 115/62 08/12/22 08:18 Pulse Ox 99 08/12/22 08:18 FiO2 Intake & Output 08/11/22 08/12/22 08/12/22 18:59 06:59 18:59 Intake Total 236 118 Output Total 550 Balance 236 -550 118 Intake: Oral 236 118 Output: Urine 550 Other: Voiding Method External Catheter External Catheter External Catheter - Exam -GENERAL: The patient is alert and oriented x3, not in any acute distress. Well developed, well nourished. Generally weak HEENT: Pupils are round and equally reacting to light. EOMI. No scleral icterus. No conjunctival pallor. Normocephalic, atraumatic. No pharyngeal erythema. No thyromegaly. CARDIOVASCULAR: S1 and S2 present. No murmurs, rubs, or gallops. -PULMONARY: Chest is clear to auscultation, no wheezing or crackles. Decreased air entry on both sides ABDOMEN: Soft, nontender, nondistended, normoactive bowel sounds. No palpable organomegaly. MUSCULOSKELETAL: No joint swelling or deformity. -EXTREMITIES: No cyanosis, clubbing, or pedal edema. Open wound on the left leg NEUROLOGICAL: Gross neurological examination did not reveal any focal deficits. SKIN: No rashes. no petechiae. - Labs CBC & Chem 7: 08/11/22 10:08 08/11/22 09:18 Labs: Microbiology - Last 24 Hours (Table) 08/08/22 11:54 Blood Culture - Preliminary Blood No Growth after 72 hours 08/10/22 09:00 Gram Stain - Preliminary Pleural Fluid Body Fluid Culture - Preliminary Assessment and Plan Assessment: -Bilateral pneumonia secondary to pseudomonas. Status post left thoracocentesis with 50 mL of turbid fluid removed on 08/10 -Pseudomonas bacteremia -Acute CHF exacerbation -Paroxysmal atrial fibrillation's with elevated troponin -Acute COPD exacerbation -Moderate left pneumothorax -Acute on chronic hypoxic respiratory failure -Cyanosis present on admission with fever and leukocytosis -Peripheral vascular disease status post recent revascularization of the left lower extremity with open wound, with bleeding from one side and hematoma of the left groin Plan: Continue with Zosyn Xeralto (on hold during to bleeding) Continue with prednisone burst taper and breathing treatment Continue with oral Lasix, cardiology signed off pulmonary, vascular surgeon and infectious disease consult Labs and medication were reviewed.. Continue same treatment. Continue with symptomatic treatment. Resume home medication. Monitor labs and vitals. DVT and GI prophylaxis. Further recommendations as per clinical course of the patient DVT prophylaxis: Xeralto (on hold) c/w mechanical GI Prophylaxis: Ppi PT/OT: Pending Prognosis is guarded
[2022-08-12] MEDS: CALCIUM CARBONATE 500 MG CHEWABLE PO PRN (12:54)
--- NOTE | 2022-08-12 14:01 | P.PN ---
Subjective Progress Note Date: 08/12/22 Patient is evaluated today while lying in bed. She is awake, alert and appropriate. She indicates there is been no further bleeding from her wound. She denies any leg pain. Objective - Vital Signs Vital signs: Vital Signs Temp 98.6 F 08/12/22 12:53 Pulse 66 08/12/22 12:53 Resp 18 08/12/22 12:53 BP 107/52 08/12/22 12:53 Pulse Ox 98 08/12/22 12:53 FiO2 Intake & Output 08/11/22 08/12/22 08/12/22 18:59 06:59 18:59 Intake Total 236 236 Output Total 550 400 Balance 236 -550 -164 Intake: Oral 236 236 Output: Urine 550 400 Other: Voiding Method External Catheter External Catheter External Catheter - Exam All dressings were taken down from the left leg. The most superior left lower extremity wound demonstrates no evidence of continued bleeding. The areas washed and redressed. The upper thigh wound is clean with an area of skin edge dehiscence although there is no evidence of infectious process such as drainage, erythema or tenderness to palpation. The lower leg wound is debrided of small degree of nonviable tissue with scissor technique. Again there is no evidence of infectious issue. This wound is redressed. - Labs CBC & Chem 7: 08/11/22 10:08 08/11/22 09:18 Labs: Microbiology - Last 24 Hours (Table) 08/08/22 11:54 Blood Culture - Preliminary Blood No Growth after 72 hours - Imaging and Cardiology Duplex ultrasound a left inguinal area fails to demonstrate any evidence of pseudoaneurysm or other significant pathology. Assessment and Plan Assessment: Status post left lower extremity revascularization. Draining hematoma left inguinal area with no evidence of pseudoaneurysm or other pathology. Wounds overall appear to be healing and no concern is given for infectious issue at this time. Plan: Continue local wound care. Office follow-up. Time with Patient: Less than 30
[2022-08-12] MEDS: COLLAGENASE 250 UNIT/GM OINTMENT 30 GM TUBE TOPICAL SCH (14:15)
[2022-08-12] MEDS: HYDROcodone/APAP 5-325MG 1 EACH TAB PO PRN (18:17)
[2022-08-12 18:19] LABS: Anisocytosis Slight; Basophils % (A) 0 %; Eosinophils # (A) 0.1 k/uL (0-0.7); Eosinophils % (A) 0 %; HCT 29.5 % (34.0-46.0); HGB 9.1 gm/dL (11.4-16.0); Hypochromasia Marked; Lymphocytes # (A) 0.2 k/uL (1.0-4.8); Lymphocytes % (A) 2 %; MCH 30.5 pg (25.0-35.0); MCV 98.5 fL (80.0-100.0); Macrocytosis Slight; Mean Platelet Volume 8.4; Monocytes # (A) 0.4 k/uL (0-1.0); Monocytes % (A) 3 %; Neutrophils # (A) 11.4 k/uL (1.3-7.7); Neutrophils % (A) 94 %; Platelet Count 253 k/uL (150-450); Poikilocytosis Moderate; RBC 2.99 m/uL (3.80-5.40); RDW 16.6 % (11.5-15.5); WBC 12.2 k/uL (3.8-10.6)
[2022-08-12] MEDS: ATORVASTATIN 80 MG TAB PO SCH (20:32)
[2022-08-13] MEDS: PANTOPRAZOLE 40 MG TABLET PO SCH ×2 (05:46→17:10)
[2022-08-13] MEDS: SODIUM CHLORIDE 0.9% 1,000 ML IV SCH (05:47)
[2022-08-13 07:47] LABS: Anisocytosis Slight; Basophils % (A) 0 %; Eosinophils # (A) 0.1 k/uL (0-0.7); Eosinophils % (A) 1 %; HCT 28.2 % (34.0-46.0); Hypochromasia Moderate; Lymphocytes # (A) 0.7 k/uL (1.0-4.8); Lymphocytes % (A) 6 %; MCH 31.1 pg (25.0-35.0); MCV 97.2 fL (80.0-100.0); Macrocytosis Slight; Mean Platelet Volume 8.8; Monocytes # (A) 0.5 k/uL (0-1.0); Monocytes % (A) 5 %; Neutrophils # (A) 10.1 k/uL (1.3-7.7); Neutrophils % (A) 87 %; Platelet Count 275 k/uL (150-450); Poikilocytosis Moderate; RDW 16.9 % (11.5-15.5); WBC 11.5 k/uL (3.8-10.6)
[2022-08-13] MEDS: PIPERACILLIN-TAZOBACTAM 3.375 GM in SODIUM CHLORIDE 0.9% 100 ML IVPB SCH (07:58)
[2022-08-13] MEDS: METOPROLOL TARTRATE 25 MG TAB PO SCH ×2 (07:59→21:02)
[2022-08-13] MEDS: CHOLECALCIFEROL 25 MCG (1000 IU) TABLET PO SCH (07:59)
[2022-08-13] MEDS: ASPIRIN 81 MG PO SCH (07:59)
[2022-08-13] MEDS: GABAPENTIN 300 MG CAP PO SCH ×3 (07:59→21:02)
[2022-08-13] MEDS: FUROSEMIDE 20 MG TAB PO SCH ×2 (07:59→15:13)
[2022-08-13] MEDS: DOCUSATE 100 MG CAP PO SCH (07:59)
[2022-08-13] MEDS: predniSONE 20 MG TAB PO SCH (07:59)
[2022-08-13] MEDS: HYDROXYCHLOROQUINE SULFATE 200 MG TAB PO SCH ×2 (08:00→21:02)
[2022-08-13] MEDS: guaiFENesin-DM 600/30MG 1 EACH TAB.ER.12H PO SCH ×2 (08:00→21:02)
[2022-08-13] MEDS: LETROZOLE 2.5 MG TAB PO SCH (08:00)
[2022-08-13] MEDS: DILTIAZEM ORAL 30 MG TAB PO SCH ×3 (08:00→21:02)
[2022-08-13 08:01] LABS: African American GFR (CKD) >90 (>60 ml/min/1.73 sqM); Blood Urea Nitrogen 21 mg/dL (7-17); Calcium 8.3 mg/dL (8.4-10.2); Chloride 96 mmol/L (98-107); Glucose 97 mg/dL (74-99); Non-African American GFR(CKD) >90 (>60 ml/min/1.73 sqM); Potassium 3.7 mmol/L (3.5-5.1); Sodium 141 mmol/L (137-145)
[2022-08-13] MEDS: CALCIUM CARBONATE 500 MG CHEWABLE PO PRN ×2 (08:05→17:10)
[2022-08-13 08:07] LABS: Anion Gap 0 mmol/L
[2022-08-13 08:11] LABS: Carbon Dioxide 45 mmol/L (22-30)
[2022-08-13] MEDS: NON FORMULARY DRUG (Fluticasone Propion/Salmeterol [Advair 500-50 Diskus] 1 EACH Blst.W.De INHALATION SCH ×2 (08:45→20:11)
[2022-08-13] MEDS: TIOTROPIUM 2.5 MCG INHALER INHALATION SCH (08:45)
[2022-08-13] MEDS: ALBUTEROL NEBULIZED 2.5 MG/3 ML INHALATION SCH ×3 (08:45→20:10)
[2022-08-13] MEDS ORDERED: POTASSIUM CHLORIDE ER 20 MEQ TAB.ER PO SCH (09:00)
--- NOTE | 2022-08-13 10:10 | P.PN ---
Subjective 67-year-old female patient; past medical history significant for lower extremities peripheral arterial disease as well as severe COPD and chronic hy poxic respiratory failure on oxygen and also hypertension and dyslipidemia and history of multifocal atrial tachycardia, presented to the hospital complaining of shortness of breath. The patient does have a baseline shortness of breath and she is on oxygen continuously at 2 L. For the last few days she has been experiencing increasing in the shortness of breath associated according to her and her with fever and cough productive of whitish sputum. Beside that she developed bilateral lower extremities edema. No symptoms of any chest pain or chest discomfort or dizziness or lightheadedness but she has been experiencing symptoms of heart racing and fluttering was no presyncope or syn cope. The patient and her called ambulance and the patient was brought to the emergency department for further evaluation. During this admission she underwent a workup including an EKG showing what it seems to be multifocal atrial tachycardia with differential diagnosis of atrial fibrillation and also she underwent cardiac enzymes showed mildly abnormal troponin. The chest x-ray showed findings consistent with CHF. The rest of the blood work came in to be unremarkable. On examination she was in mild respiratory distress. She was also coughing during the examination. She does have bilateral expiratory wheezing and mild bilateral lower except his edema. Reviewing the vital signs revealed marginally low blood pressure with systolic pressure in the 90s. Currently she is on Cardizem IV and she is also on Lasix IV. 08/07/2022 This is a pleasant 67 years old female with multiple medical problems who was admitted initially because of dyspnea found to have acute CHF exacerbation and also she has evidence of bilateral pneumonia, she had a fever of 101.3 on admission. She still feels generally weak and tired, mildly tachypneic. Been followed by cardiology and infectious disease dating with positive blood culture for pseudomonas. And covered with abdomen Lasix 20 mg, IV Zosyn. Also she has history of COPD with chronic hypoxic respiratory failure on 2 L of oxygen at home, currently she is using before liters per minute. She has some evidence of diminished air entry in both sides under going to start prednisone 40 mg daily. She is on home dose of 0.5 mg twice a day for paroxysmal atrial fibrillation. Also she is on aspirin 325 mg. also patient follow up with Dr. Curran reported recent revascularizations surgery for his left lower extremity vascular disease, she still Dr. Curran last week and was doing well, she supposed to see him today so he was consulted 08/08/2022 Patient awake and alert, she still have little short of breath and tachypnea, however she feels better. Her cough feels better bleeding looks the same, she still have exertional dyspnea with walking. She still feels generally weak. States to have limited air entry on both lung sewell, no more fever and vitals are stable. Her abdomen Lasix switched to oral pills. [employer] Officer on the case and she was kept on Xarelto and metoprolol and Cardizem for her A. fib, Patient also have evidence with pseudomonas bacteremia, source could be pneumonia versus left lower extremity wound, culture is been followed closely. Patient is covered with Zosyn. Infectious disease team on the case. 08/09/2022 Patient states that her leg feels better today, she still complaining of from shortness of breath although she has this wheezing and better air entry limitations to there. Also ultrasound showing bilateral pleural effusion. Vitals are stable. Patient remains on Zosyn, prednisone 40 mg and oral Lasix 20 mg twice daily. 08/10/2022 Patient is still improving slowly and gradually regarding her pneumonia, she sent in bed most of the time, she has recovered is improving with Robitussin-DM which is continued. Chest x-ray from today show significant improvement compared to a few days ago. She underwent a thoracocentesis with 250 mL of turbid fluid removed. Sputum culture is growing Pseudomonas same as blood culture, patient is currently covered with Zosyn. Also she is on a prednisone 40 mg for her possible COPD element. Cardiology team already signed off with recommendation to follow up with Dr. Stewart as an outpatient. 08/11/2022 Patient today awake alert, she still feels short of breath although reports some improvement, she has weak cough and difficult to bring in her phlegm up. Also she's been complaining from bleeding from her left groin area. A sputum culture blood culture both grown Pseudomonas, she underwent thoracocentesis and cytology is pending, she did have some pneumothorax, pulmonary team on the case, her breathing is a stable and actually is improving. Vascular surgery on the case and 0 to was put on hold because of bleeding from the surgical site of her left leg. She kept on prednisone 40 mg as per a burst taper as well as Zosyn. Surgical consult is on the case Patient remains critical. 08/12/2021 Patient had actually looks much better today compared to yesterday, she is more relaxed and pleasant she still have some dyspnea, her coughing is stronger than yesterday as well. She still hemodynamically stable. Oxygenation is improving. Yesterday she had bleeding from her left groin wound related to vascular surgery, no more bleeding today. Result is on hold. Patient remains on Zosyn Cytology is still pending 08/13/2022 Patient is improving slowly and gradually, her dyspnea significantly improved over the last 2 days, although no much difference between yesterday and today. Her cough is better as well. Also bleeding on her left groin has stopped, though remains on hold. Vascular surgery on the case. She remains on Zosyn and Protonix, also has a prednisone 40 mg burst taper. Also on oral Lasix 20 mg twice daily. Objective - Vital Signs Vital signs: Vital Signs Temp 98.1 F 08/13/22 07:56 Pulse 70 08/13/22 09:04 Resp 18 08/13/22 07:56 BP 113/65 08/13/22 07:56 Pulse Ox 99 08/13/22 08:46 FiO2 Intake & Output 08/12/22 08/13/22 08/13/22 17:59 06:59 18:59 Intake Total 118 Output Total Balance 118 Intake: IV Invasive Line 4 Oral 118 Output: Urine Other: Voiding Method # Bowel Movements - Exam -GENERAL: The patient is alert and oriented x3, not in any acute distress. Well developed, well nourished. Generally weak HEENT: Pupils are round and equally reacting to light. EOMI. No scleral icterus. No conjunctival pallor. Normocephalic, atraumatic. No pharyngeal erythema. No thyromegaly. CARDIOVASCULAR: S1 and S2 present. No murmurs, rubs, or gallops. -PULMONARY: Chest is clear to auscultation, no wheezing or crackles. Decreased air entry on both sides ABDOMEN: Soft, nontender, nondistended, normoactive bowel sounds. No palpable organomegaly. MUSCULOSKELETAL: No joint swelling or deformity. -EXTREMITIES: No cyanosis, clubbing, or pedal edema. Open wound on the left leg NEUROLOGICAL: Gross neurological examination did not reveal any focal deficits. SKIN: No rashes. no petechiae. - Labs CBC & Chem 7: 08/13/22 07:17 08/13/22 07:17 Labs: Abnormal Lab Results - Last 24 Hours (Table) 08/12/22 08/13/22 08/13/22 Range/Units 18:09 07:17 07:17 WBC 12.2 H 11.5 H (3.8-10.6) k/uL RBC 2.99 L 2.90 L (3.80-5.40) m/uL Hgb 9.1 L 9.0 L (11.4-16.0) gm/dL Hct 29.5 L 28.2 L (34.0-46.0) % RDW 16.6 H 16.9 H (11.5-15.5) % Neutrophils # 11.4 H 10.1 H (1.3-7.7) k/uL Lymphocytes # 0.2 L 0.7 L (1.0-4.8) k/uL Chloride 96 L (98-107) mmol/L Carbon Dioxide 45 H* (22-30) mmol/L BUN 21 H (7-17) mg/dL Creatinine 0.42 L (0.52-1.04) mg/dL Calcium 8.3 L (8.4-10.2) mg/dL Microbiology - Last 24 Hours (Table) 08/10/22 09:00 Gram Stain - Preliminary Pleural Fluid Body Fluid Culture - Preliminary 08/08/22 11:54 Blood Culture - Preliminary Blood No Growth after 96 hours Assessment and Plan Assessment: -Bilateral pneumonia secondary to pseudomonas. Status post left thoracocentesis with 50 mL of turbid fluid removed on 08/10 -Pseudomonas bacteremia -Acute CHF exacerbation -Paroxysmal atrial fibrillation's with elevated troponin -Acute COPD exacerbation -Moderate left pneumothorax -Acute on chronic hypoxic respiratory failure -Cyanosis present on admission with fever and leukocytosis -Peripheral vascular disease status post recent revascularization of the left lower extremity with open wound, with bleeding from one side and hematoma of the left groin Plan: Continue with Zosyn Xeralto (on hold during to bleeding) Continue with prednisone burst taper and breathing treatment Continue with oral Lasix, cardiology signed off pulmonary, vascular surgeon and infectious disease consult Labs and medication were reviewed.. Continue same treatment. Continue with symptomatic treatment. Resume home medication. Monitor labs and vitals. DVT and GI prophylaxis. Further recommendations as per clinical course of the patient DVT prophylaxis: Xeralto (on hold) c/w mechanical GI Prophylaxis: Ppi PT/OT: Pending Prognosis is guarded
--- NOTE | 2022-08-13 10:18 | P.PN ---
Subjective Progress Note Date: 08/13/22 67-year-old female patient who presented to the hospital having fever and some worsening shortness of breath. The patient is known to have advanced COPD and she has undergone [place] valve insertion regarding her advanced COPD and the patient has been maintained on a combination of Spiriva and Advair an outpatient basis. The patient is oxygen dependent. The patient does also use oxygen at 2 L per minute nasal cannula at baseline. Noted the patient was in the hospital approximately 3 weeks ago and the patient underwent a vascular/femoral endarterectomy on her left femoral artery for symptomatic claudication. At that time, I took care of this patient in the intensive care unit. The patient is also has severe peripheral vascular disease and she has undergone prior stenting to her bilateral common iliacs and external iliacs and subsequently she required the left femoral and left profunda endarterectomy and left femoral to tibial peroneal trunk bypass. Postop, she developed some swelling in lower extremity and she does have a 4.1 and in her upper thigh with some purulent drainage at the base. During this current hospital stay, the patient was found to be sept ic. Blood culture was positive for pseudomonas aeruginosa and the patient was seen by infectious disease and the patient was started on IV Zosyn. Meanwhile, the patient is having worsening shortness of breath, cough and congestion. She has excessively congestive cough. She is unable to bring up much of sputum. Her sputum sample has been collected and is showing some few gram-negative bacilli. Her initial white cell count was at 17.2 and dropped down to 14.7. Her pro calcitonin level was 8.0. The chest x-ray showing bilateral lower lobe pulmonary infiltrates and the patient also has a some mild thoracic kyphosis and anterior wedging of the lower was thoracic vertebral and order of 30%. On 08/09/2022, the patient is still complaining of shortness of breath. As mentioned, the patient advanced COPD. For now, sputum is growing gram-negative bacillus and the patient has blood cultures is positive for pseudomonas aeruginosa. The patient is on IV Zosyn. This is most likely bilateral pneumonia with secondary sepsis. At the same time, CAT scan of the chest was done that showed limited infiltration of the lung bases and small to moderate- sized bilateral pleural effusion the lung bases. There is extensive emphysema bilaterally. Meanwhile, the patient is still having a congested cough. Unable to bring up much of sputum. No fever. No chills. No other new complaints othe rwise for now. On 08/10/2022, the patient's condition is essentially the same. Sputum sample was positive for pseudomonas aeruginosa. Blood culture was also positive for pseudomonas aeruginosa the patient is currently on IV Zosyn. The patient bilateral pleural effusion. Ultrasound marking of the chest was done and I performed a left-sided thoracentesis today and the patient able to 10% pneumo thorax on the left. Total amount of fluid removed was around 250 mL. The patient remained hemodynamically stable. The patient reported improvement in her shortness of breath following the procedure. Nevertheless, she continues to have a congested cough. She is on Mucinex. Unable to bring up much of sputum. The WBC count is improving the white second of 11.6 with a hemoglobin of 9.8. BUN is at 25 with a creatinine of 0.5 and a sodium is at 140. On today's evaluation of 08/11/2022, the patient continues to have a congestive cough, unable to bring up much of sputum. She suffers from pseudomonal bilateral lower lobe pneumonia and bilateral pleural effusion. I performed a thoracentesis fluid on the left external to be transudate. She ended up having a temperature pneumothorax on the left. A repeat chest x-ray will be done today. Meanwhile, earlier this morning, the patient had an acute hemorrhage from her left groin. The surgical once from her previous vascular surgery the past. This wound was developed by vascular surgery. Pressure was applied and currently there is no evidence of any acute bleeding. She is weak. On her blood work, the WBC was 11.6 with a hemoglobin 9.8, BUN is 25 with a creatinine of 0.5 and a sodium level is 140 08/12/2022, slightly improved compared to yesterday, continued to have congestive cough. The repeat chest x-ray was done that showed persistent lower lobe pneumonia. The left-sided pneumothorax remains unchanged. The pleural fluid that was aspirated is a transudate. No other new complaints. No active bleeding from the surgical one-sided. No new labs from today. Remains on bronchodilators. Remains on IV Zosyn. Remains on prednisone. She is complaining of heartburn. She'll be given Protonix in addition to Tums for her ongoing active symptoms of heartburn. On today's evaluation of 08/13/2022, respiratory status is slightly improved and the patient's cough and congestion is gradually improving. Her cough is better. She remains on oxygen by nasal cannula. She remains on IV Zosyn. She remains on bronchodilators, Spiriva, prednisone patient is also on oral Lasix 20 mg by mouth twice a day. She is complaining of heartburn and the patient remains on accommodation of Protonix and Tums. She did have another episode of bleeding from her left groin incision and she currently has a pressure dressing applied. Vascular surgeries on the case and they're informed. No evidence of any hematoma. Hemoglobin is at 9.0 which is essentially stable. Objective - Vital Signs Vital signs: Vital Signs Temp 98.1 F 08/13/22 07:56 Pulse 70 08/13/22 09:04 Resp 18 08/13/22 07:56 BP 113/65 08/13/22 07:56 Pulse Ox 99 08/13/22 08:46 FiO2 Intake & Output 08/12/22 08/13/22 08/13/22 17:59 06:59 18:59 Intake Total 118 Output Total Balance 118 Intake: IV Invasive Line 4 Oral 118 Output: Urine Other: Voiding Method # Bowel Movements - Exam GENERAL EXAM: Alert, pleasant 65-year-old female patient, on 2 L nasal cannula, comfortable in no apparent distress. HEAD: Normocephalic. EYES: Normal reaction of pupils, equal size. NOSE: Clear with pink turbinates. THROAT: No erythema or exudates. NECK: No masses, no JVD. CHEST: No chest wall deformity. LUNGS: Equal air entry with bilateral end expiratory wheeze, diminished. The rest of the quite diminished in lung bases especially the right lung base and there is scattered rhonchi throughout the lung sewell bilaterally CVS: S1 and S2 normal with no audible murmur, regular rhythm. ABDOMEN: No hepatosplenomegaly, normal bowel sounds, no guarding or rigidity. SPINE: No scoliosis or deformity SKIN: No rashes CENTRAL NERVOUS SYSTEM: No focal deficits, tone is normal in all 4 extremities. EXTREMITIES: Extremities: Left lower extremity with multiple surgical incis ions on the medial aspect of leg. Left groin incision site with area of dehiscence, not bleeding currently. Palpable small surrounding hematoma. The left upper thigh wound with dressing clean dry and intact. Left lower wound with dressing clean dry and intact. Palpable bypass graft, with Doppler signal left PT and DP. Sensorimotor intact. - Labs CBC & Chem 7: 08/13/22 07:17 08/13/22 07:17 Labs: Abnormal Lab Results - Last 24 Hours (Table) 08/12/22 08/13/22 08/13/22 Range/Units 18:09 07:17 07:17 WBC 12.2 H 11.5 H (3.8-10.6) k/uL RBC 2.99 L 2.90 L (3.80-5.40) m/uL Hgb 9.1 L 9.0 L (11.4-16.0) gm/dL Hct 29.5 L 28.2 L (34.0-46.0) % RDW 16.6 H 16.9 H (11.5-15.5) % Neutrophils # 11.4 H 10.1 H (1.3-7.7) k/uL Lymphocytes # 0.2 L 0.7 L (1.0-4.8) k/uL Chloride 96 L (98-107) mmol/L Carbon Dioxide 45 H* (22-30) mmol/L BUN 21 H (7-17) mg/dL Creatinine 0.42 L (0.52-1.04) mg/dL Calcium 8.3 L (8.4-10.2) mg/dL Microbiology - Last 24 Hours (Table) 08/10/22 09:00 Gram Stain - Preliminary Pleural Fluid Body Fluid Culture - Preliminary 08/08/22 11:54 Blood Culture - Preliminary Blood No Growth after 96 hours Assessment and Plan Plan: Hospital-acquired pseudomonal pneumonia. The patient presented with Bilateral lower lobe pneumonia, likely gram-negative hospital-acquired pneumonia with Pseudomonas. The sputum sample was positive for pseudomonas aeruginosa. Blood cultures were also positive. Currently on IV Zosyn. The patient has increased infiltration of the lung base bilaterally with bilateral lower lobe consolidation. The patient continues to have dense consolidation of the lung bases on yesterday's chest x-ray. The sputum is positive for pseudomonas aeruginosa. Remains on IV Zosyn. Gradually improving Acute hypoxic respiratory failure currently on 4 L of oxygen by nasal cannula Bilateral pleural effusion moderate in size, postthoracentesis of the left lung, total of 250 mL of fluid removed, developed 10% pneumothorax, hemodynamically stable, clinically stable and improved following the procedure. Acute sepsis secondary to pseudomonas aeruginosa currently on IV Zosyn. The patient was quite ill and she had leukocytosis and elevated pro-calcitonin level at time of admission, white cell count is improving Surgical wound dehiscence with acute bleed, currently inactive and stable, last her surgical the case Acute leukocytosis, improving Shortness of breath secondary to above Acute COPD exacerbation secondary to above Advanced COPD with previous insertion of [place] valve and the patient's of some chronic hypoxic respiratory failure due to advanced COPD Dehiscence of surgical wound. The patient has a surgical wound with a white draining base and the upper thigh on the left Multifocal atrial tachycardia, current mechanism is sinus CHF with preserved LV function and ejection fraction of 50-55% Chronic hypoxic respiratory failure maternal O2 at 2 L secondary to COPD Severe peripheral vascular disease. The patient has undergone multiple vascular intervention and stenting of the common iliacs and external iliacs and the patient is post endarterectomy of the femoral artery and profunda on the left with a femoral to tibial peroneal trunk bypass History of breast cancer History of Sjogren's disease maintained on Plaquenil outpatient basis Hyperlipidemia Chronic steroid dependent and the patient admitted on prednisone 10 mg daily basis Heartburn currently on Protonix and Tums will be added Plan Monitor the bleeding from the groin incision site Pressure dressing Informed vascular surgery Hemoglobin is stable Repeat chest x-ray in the morning Aggressive pulmonary toileting Pleural fluid was a transudate, awaiting cytology and cultures Continue IV Zosyn We monitored 10% pneumothorax on the left, the patient is asymptomatic at this point in time in terms of the pneumothorax Mucinex DM flutter valve Patient is currently on 40 mg of prednisone as part of burst taper Continue DuoNeb nebulized treatments [id number] XARELTO will be placed on hold Tums in combination with Protonix for heartburn We'll care with wet-to-dry to the left thigh We'll continue to follow. Titrate oxygen flow to maintain a saturation above 90% Is a chest and the patient may need bronchoscopy at the later stages the patient still has significant respiratory secretions that she is unable to cough.
[2022-08-13] MEDS: COLLAGENASE 250 UNIT/GM OINTMENT 30 GM TUBE TOPICAL SCH (13:04)
[2022-08-13] MEDS: HYDROcodone/APAP 5-325MG 1 EACH TAB PO PRN ×2 (13:42→21:02)
--- NOTE | 2022-08-13 15:26 | P.PN ---
Subjective Progress Note Date: 08/13/22 Principal diagnosis: Pseudomonas bacteremia Patient is a 67-year-old female with a past medical history significant for hypertension GERD atrial fibrillation peripheral arterial disease left breast cancer presenting to the ER for evaluation of increasing shortness of breath patient did have fever and elevated white count and recently did have a left lower extremity muscular procedure with open wound to the left medial thigh and left leg subsequently with evidence of pseudomonas bacteremia. Patient is status post left-sided thoracocentesis completed on 08/10/2022 with removal of 250 mL turbid fluid On today's evaluation that is 08/13/2022, the patient remains to be afebrile, the patient is breathing comfortably on 2 L nasal cannula oxygen, patient denies having any chest pain , the patient cough has decreased in intensity and not bringing up any sputum, The patient mentioned did have some bleeding from her left thigh wound last night however none since then Objective - Vital Signs Vital signs: Vital Signs Temp 98.3 F 08/13/22 12:06 Pulse 70 08/13/22 12:58 Resp 18 08/13/22 12:06 BP 114/64 08/13/22 12:06 Pulse Ox 97 08/13/22 12:06 FiO2 Intake & Output 08/12/22 08/13/22 08/13/22 17:59 06:59 18:59 Intake Total 236 Output Total Balance 236 Intake: IV Invasive Line 4 Oral 236 Output: Urine Other: Voiding Method # Bowel Movements - Exam GENERAL DESCRIPTION: An elderly female lying in bed in no distress RESPIRATORY SYSTEM: Unlabored breathing , decreased breath sounds at bases HEART: S1 S2 regular rate and rhythm , ABDOMEN: Soft , no tenderness EXTREMITIES: Left thigh wound and left leg wound is currently dressed no drainage on the dressing - Labs CBC & Chem 7: 08/13/22 07:17 08/13/22 07:17 Labs: Abnormal Lab Results - Last 24 Hours (Table) 08/12/22 08/13/22 08/13/22 Range/Units 18:09 07:17 07:17 WBC 12.2 H 11.5 H (3.8-10.6) k/uL RBC 2.99 L 2.90 L (3.80-5.40) m/uL Hgb 9.1 L 9.0 L (11.4-16.0) gm/dL Hct 29.5 L 28.2 L (34.0-46.0) % RDW 16.6 H 16.9 H (11.5-15.5) % Neutrophils # 11.4 H 10.1 H (1.3-7.7) k/uL Lymphocytes # 0.2 L 0.7 L (1.0-4.8) k/uL Chloride 96 L (98-107) mmol/L Carbon Dioxide 45 H* (22-30) mmol/L BUN 21 H (7-17) mg/dL Creatinine 0.42 L (0.52-1.04) mg/dL Calcium 8.3 L (8.4-10.2) mg/dL Microbiology - Last 24 Hours (Table) 08/10/22 09:00 Gram Stain - Preliminary Pleural Fluid Body Fluid Culture - Preliminary 08/08/22 11:54 Blood Culture - Preliminary Blood No Growth after 96 hours Assessment and Plan (1) Bacteremia due to Pseudomonas Current Visit: Yes Status: Acute Code(s): R78.81 - BACTEREMIA; B96.5 - PSEUDOMONAS (MALLEI) CAUSING DISEASES [facility] SNOMED Code(s): 2878644111 Plan: 1patient presented to hospital with sepsis in this patient who did a fever elevated white tachycardia and now with evidence of gram-negative bacteremia source questionably infected left lower extremity wound with a recent vascular procedure for PAD versus pneumonia however chest x-ray is most interstitial infiltrate although the patient did have elevated procalcitonin sputum cultures have been obtained also be followed, left lower extremity wound that has some maceration and purulent material could be the source of this bacteremia as well 2-blood cultures repeat has been negative , pleural fluid cultures are currently pending 3-patient is afebrile and the white count is trending down and will continue with the Zosyn and monitor clinical course closely
[2022-08-13] MEDS: ATORVASTATIN 80 MG TAB PO SCH (21:02)
[2022-08-14] MEDS: PANTOPRAZOLE 40 MG TABLET PO SCH ×2 (06:19→16:56)
[2022-08-14] MEDS: SODIUM CHLORIDE 0.9% 1,000 ML IV SCH (06:21)
[2022-08-14] MEDS: NON FORMULARY DRUG (Fluticasone Propion/Salmeterol [Advair 500-50 Diskus] 1 EACH Blst.W.De INHALATION SCH ×2 (07:59→21:11)
[2022-08-14] MEDS: ALBUTEROL NEBULIZED 2.5 MG/3 ML INHALATION SCH ×3 (07:59→21:11)
[2022-08-14] MEDS: TIOTROPIUM 2.5 MCG INHALER INHALATION SCH (08:00)
[2022-08-14 08:13] LABS: Anisocytosis Slight; Basophils % (A) 0 %; Eosinophils # (A) 0.1 k/uL (0-0.7); Eosinophils % (A) 1 %; HCT 28.8 % (34.0-46.0); HGB 9.1 gm/dL (11.4-16.0); Hypochromasia Marked; Lymphocytes # (A) 0.7 k/uL (1.0-4.8); Lymphocytes % (A) 6 %; MCH 30.9 pg (25.0-35.0); MCHC 31.4 g/dL (31.0-37.0); MCV 98.3 fL (80.0-100.0); Macrocytosis Slight; Mean Platelet Volume 8.4; Monocytes # (A) 0.4 k/uL (0-1.0); Monocytes % (A) 4 %; Neutrophils % (A) 87 %; Platelet Count 267 k/uL (150-450); Poikilocytosis Moderate; RBC 2.93 m/uL (3.80-5.40); RDW 16.8 % (11.5-15.5); WBC 10.3 k/uL (3.8-10.6)
[2022-08-14 08:30] LABS: African American GFR (CKD) >90 (>60 ml/min/1.73 sqM); Blood Urea Nitrogen 25 mg/dL (7-17); Calcium 8.5 mg/dL (8.4-10.2); Chloride 96 mmol/L (98-107); Glucose 98 mg/dL (74-99); Non-African American GFR(CKD) >90 (>60 ml/min/1.73 sqM); Sodium 143 mmol/L (137-145)
[2022-08-14 08:38] LABS: Anion Gap 4 mmol/L
[2022-08-14 08:41] LABS: Carbon Dioxide 43 mmol/L (22-30)
[2022-08-14] MEDS: predniSONE 20 MG TAB PO SCH (09:06)
[2022-08-14] MEDS: CHOLECALCIFEROL 25 MCG (1000 IU) TABLET PO SCH (09:06)
[2022-08-14] MEDS: GABAPENTIN 300 MG CAP PO SCH ×3 (09:06→21:05)
[2022-08-14] MEDS: HYDROXYCHLOROQUINE SULFATE 200 MG TAB PO SCH ×2 (09:06→21:05)
[2022-08-14] MEDS: DILTIAZEM ORAL 30 MG TAB PO SCH ×3 (09:06→21:05)
[2022-08-14] MEDS: DOCUSATE 100 MG CAP PO SCH (09:06)
[2022-08-14] MEDS: ASPIRIN 81 MG PO SCH (09:06)
[2022-08-14] MEDS: guaiFENesin-DM 600/30MG 1 EACH TAB.ER.12H PO SCH ×2 (09:07→21:05)
[2022-08-14] MEDS: FUROSEMIDE 20 MG TAB PO SCH ×2 (09:07→15:46)
[2022-08-14] MEDS: LETROZOLE 2.5 MG TAB PO SCH (09:07)
[2022-08-14] MEDS: METOPROLOL TARTRATE 25 MG TAB PO SCH ×2 (09:07→21:17)
[2022-08-14] MEDS: HYDROcodone/APAP 5-325MG 1 EACH TAB PO PRN (10:32)
--- NOTE | 2022-08-14 11:57 | P.PN ---
Subjective Progress Note Date: 08/14/22 Principal diagnosis: Pseudomonas bacteremia Patient is a 67-year-old female with a past medical history significant for hypertension GERD atrial fibrillation peripheral arterial disease left breast cancer presenting to the ER for evaluation of increasing shortness of breath patient did have fever and elevated white count and recently did have a left lower extremity muscular procedure with open wound to the left medial thigh and left leg subsequently with evidence of pseudomonas bacteremia. Patient is status post left-sided thoracocentesis completed on 08/10/2022 with removal of 250 mL turbid fluid On today's evaluation that is 08/14/2022, the patient continues to be afebrile, the patient is breathing comfortably on 2 L nasal cannula oxygen, patient denies having any chest pain , the patient cough has decreased in intensity and mostly dry in nature, The patient mentioned that she did have some bleeding from her left thigh wound again last night and apparently ultrasound has been ordered by vascular this morning Objective - Vital Signs Vital signs: Vital Signs Temp 97.9 F 08/14/22 08:20 Pulse 63 08/14/22 08:20 Resp 16 08/14/22 08:20 BP 113/67 08/14/22 08:20 Pulse Ox 100 08/14/22 08:20 FiO2 Intake & Output 08/13/22 08/14/22 08/14/22 18:59 06:59 18:59 Intake Total 354 240 278 Balance 354 240 278 Intake: Intake, IV Titration 240 160 Amount Sodium Chloride 0.9% 1, 240 160 000 ml @ 20 mls/hr IV . Q24H [facility] Rx#:[id number] Oral 354 118 Other: Voiding Method External Catheter External Catheter External Catheter # Voids 3 # Bowel Movements 0 - Exam GENERAL DESCRIPTION: An elderly female lying in bed in no distress RESPIRATORY SYSTEM: Unlabored breathing , decreased breath sounds at bases HEART: S1 S2 regular rate and rhythm , ABDOMEN: Soft , no tenderness EXTREMITIES: Left thigh wound and left leg wound is currently dressed no drainage on the dressing - Labs CBC & Chem 7: 08/14/22 07:43 08/14/22 07:43 Labs: Abnormal Lab Results - Last 24 Hours (Table) 08/14/22 08/14/22 Range/Units 07:43 07:43 RBC 2.93 L (3.80-5.40) m/uL Hgb 9.1 L (11.4-16.0) gm/dL Hct 28.8 L (34.0-46.0) % RDW 16.8 H (11.5-15.5) % Neutrophils # 9.0 H (1.3-7.7) k/uL Lymphocytes # 0.7 L (1.0-4.8) k/uL Chloride 96 L (98-107) mmol/L Carbon Dioxide 43 H* (22-30) mmol/L BUN 25 H (7-17) mg/dL Creatinine 0.40 L (0.52-1.04) mg/dL Microbiology - Last 24 Hours (Table) 08/10/22 09:00 Gram Stain - Preliminary Pleural Fluid Body Fluid Culture - Preliminary 08/08/22 11:54 Blood Culture - Preliminary Blood No Growth after 120 hours Assessment and Plan (1) Bacteremia due to Pseudomonas Current Visit: Yes Status: Acute Code(s): R78.81 - BACTEREMIA; B96.5 - PSEUDOMONAS (MALLEI) CAUSING DISEASES [facility] SNOMED Code(s): 0689828258 Plan: 1patient presented to hospital with sepsis in this patient who did a fever elevated white tachycardia and now with evidence of gram-negative bacteremia source questionably infected left lower extremity wound with a recent vascular procedure for PAD versus pneumonia however chest x-ray is most interstitial infiltrate although the patient did have elevated procalcitonin sputum cultures have been obtained which did grow pseudomonas aeruginosa 2-blood cultures repeat has been negative , pleural fluid cultures are so far negative 3-patient is afebrile and the white count has normalized, the patient will continue with the Zosyn and monitor clinical course closely Time with Patient: Less than 30
[2022-08-14] MEDS ORDERED: RX INFO: IV CONTRAST WAS GIVEN 1 EACH MISC MISCELLANE PRN (12:59)
[2022-08-14] MEDS ORDERED: methylPREDNISolone SOD SUCCI 125 MG/2 ML VIAL IV ONE (13:02)
[2022-08-14] MEDS ORDERED: diphenhydrAMINE 50 MG/ML 1 ML VIAL IVP ONE (13:02)
[2022-08-14] MEDS ORDERED: FAMOTIDINE 20 MG/2 ML VIAL IV ONE (13:02)
--- NOTE | 2022-08-14 13:09 | P.PN ---
Subjective Progress Note Date: 08/14/22 Principal diagnosis: Acute hospital-acquired pseudomonal pneumonia and acute hypoxic respiratory failure 67-year-old female patient who presented to the hospital having fever and some worsening shortness of breath. The patient is known to have advanced COPD and she has undergone Carrington valve insertion regarding her advanced COPD and the patient has been maintained on a combination of Spiriva and Advair an outpatient basis. The patient is oxygen dependent. The patient does also use oxygen at 2 L per minute nasal cannula at baseline. Noted the patient was in the hospital approximately 3 weeks ago and the patient underwent a vascular/femoral endarterectomy on her left femoral artery for symptomatic claudication. At that time, I took care of this patient in the intensive care unit. The patient is also has severe peripheral vascular disease and she has undergone prior stenting to her bilateral common iliacs and external iliacs and subsequently she required the left femoral and left profunda endarterectomy and left femoral to tibial peroneal trunk bypass. Postop, she developed some swelling in lower extremity and she does have a 4.1 and in her upper thigh with some purulent drainage at the base. During this current hospital stay, the patient was found to be septic. Blood culture was positive for pseudomonas aeruginosa and the patient was seen by infectious disease and the patient was started on IV Zosyn. Meanwhile, the patient is having worsening shortness of breath, cough and congestion. She has excessively congestive cough. She is unable to bring up much of sputum. Her sputum sample has been collected and is showing some few gram-negative bacilli. Her initial white cell count was at 17.2 and dropped down to 14.7. Her pro calcitonin level was 8.0. The chest x-ray showing bilateral lower lobe pulmonary infiltrates and the patient also has a some mild thoracic kyphosis and anterior wedging of the lower was thoracic vertebral and order of 30%. On 08/09/2022, the patient is still complaining of shortness of breath. As mentioned, the patient advanced COPD. For now, sputum is growing gram-negative bacillus and the patient has blood cultures is positive for pseudomonas aeruginosa. The patient is on IV Zosyn. This is most likely bilateral pneumonia with secondary sepsis. At the same time, CAT scan of the chest was done that showed limited infiltration of the lung bases and small to moderate- sized bilateral pleural effusion the lung bases. There is extensive emphysema bilaterally. Meanwhile, the patient is still having a congested cough. Unable to bring up much of sputum. No fever. No chills. No other new complaints otherwise for now. On 08/10/2022, the patient's condition is essentially the same. Sputum sample was positive for pseudomonas aeruginosa. Blood culture was also positive for pseudomonas aeruginosa the patient is currently on IV Zosyn. The patient bilateral pleural effusion. Ultrasound marking of the chest was done and I performed a left-sided thoracentesis today and the patient able to 10% p neumothorax on the left. Total amount of fluid removed was around 250 mL. The patient remained hemodynamically stable. The patient reported improvement in her shortness of breath following the procedure. Nevertheless, she continues to have a congested cough. She is on Mucinex. Unable to bring up much of sputum. The WBC count is improving the white second of 11.6 with a hemoglobin of 9.8. B UN is at 25 with a creatinine of 0.5 and a sodium is at 140. On today's evaluation of 08/11/2022, the patient continues to have a congestive cough, unable to bring up much of sputum. She suffers from pseudomonal bilateral lower lobe pneumonia and bilateral pleural effusion. I performed a thoracentesis fluid on the left external to be transudate. She ended up having a temperature pneumothorax on the left. A repeat chest x-ray will be done today. Meanwhile, earlier this morning, the patient had an acute hemorrhage from her left groin. The surgical once from her previous vascular surgery the past. This wound was developed by vascular surgery. Pressure was applied and currently there is no evidence of any acute bleeding. She is weak. On her blood work, the WBC was 11.6 with a hemoglobin 9.8, BUN is 25 with a creatinine of 0.5 and a sodium level is 140 08/12/2022, slightly improved compared to yesterday, continued to have congestive cough. The repeat chest x-ray was done that showed persistent lower lobe pneumonia. The left-sided pneumothorax remains unchanged. The pleural fluid that was aspirated is a transudate. No other new complaints. No active bleeding from the surgical one-sided. No new labs from today. Remains on bronchodilators. Remains on IV Zosyn. Remains on prednisone. She is complaining of heartburn. She'll be given Protonix in addition to Tums for her ongoing active symptoms of heartburn. On today's evaluation of 08/13/2022, respiratory status is slightly improved and the patient's cough and congestion is gradually improving. Her cough is better. She remains on oxygen by nasal cannula. She remains on IV Zosyn. She remains on bronchodilators, Spiriva, prednisone patient is also on oral Lasix 20 mg by mouth twice a day. She is complaining of heartburn and the patient remains on accommodation of Protonix and Tums. She did have another episode of bleeding from her left groin incision and she currently has a pressure dressing applied. Vascular surgeries on the case and they're informed. No evidence of any hematoma. Hemoglobin is at 9.0 which is essentially stable. Patient was seen today on 08/14/2022, doing well from the pulmonary perspective, feeling much better, breathing easier, however she is experiencing bleeding from her left groin which is being addressed now by vascular surgery. Patient had recent the left lower extremity revascularization and a draining hematoma of the left inguinal area with no evidence of pseudoaneurysm. Continues to have a pressure dressing in the left groin, and again this is being addressed by vascular surgery on the case. Labs today showed WBC count of 10.3 hemoglobin is 9.1, elective lites are normal bicarb is 43 renal profile is normal. Ultrasound of the left groin done recently showed a fluid collection [id number] hypoechoic area, consistent with hematoma there was no evidence of pseudoaneurysm. Last chest x-ray from 08/11 showed evidence of minimal left-sided pneumothorax and trace of pleural effusions. Pleural effusion cytology showed no evidence of malignancy. Objective - Vital Signs Vital signs: Vital Signs Temp 97.9 F 08/14/22 08:20 Pulse 66 08/14/22 12:04 Resp 16 08/14/22 08:20 BP 113/67 08/14/22 08:20 Pulse Ox 100 08/14/22 08:20 FiO2 Intake & Output 08/13/22 08/14/22 08/14/22 18:59 06:59 18:59 Intake Total 354 240 278 Balance 354 240 278 Weight 53 kg Intake: Intake, IV Titration 240 160 Amount Sodium Chloride 0.9% 1, 240 160 000 ml @ 20 mls/hr IV . Q24H [facility] Rx#:[id number] Oral 354 118 Other: Voiding Method External Catheter External Catheter External Catheter # Voids 3 # Bowel Movements 0 - Exam Physical Exam: Revealed a 67-year-old female in no distress, on 2 L nasal cannula Head: Atraumatic, normocephalic. HEENT:[Neck is supple.] [No neck masses.] [No thyromegaly.] [No JVD.] Chest: [Diminished breath sounds at the bases no crackles or rhonchi or wheezes Cardiac Exam: [Normal S1 and S2, no S3 gallop, no murmur.] Abdomen: [Soft, nontender, no megaly, no rebound, no guarding, normal bowel sounds.] Extremities: Left lower extremity with multiple surgical incisions on the medial aspect of leg. Pressure dressing is noted in the left groin area Neurological Exam: [No focal neurologic deficit.] Alert and oriented 3. Psychiatric: Normal mood affect and normal mental status examination. Skin: No rashes. - Labs CBC & Chem 7: 08/14/22 07:43 08/14/22 07:43 Labs: Abnormal Lab Results - Last 24 Hours (Table) 08/14/22 08/14/22 Range/Units 07:43 07:43 RBC 2.93 L (3.80-5.40) m/uL Hgb 9.1 L (11.4-16.0) gm/dL Hct 28.8 L (34.0-46.0) % RDW 16.8 H (11.5-15.5) % Neutrophils # 9.0 H (1.3-7.7) k/uL Lymphocytes # 0.7 L (1.0-4.8) k/uL Chloride 96 L (98-107) mmol/L Carbon Dioxide 43 H* (22-30) mmol/L BUN 25 H (7-17) mg/dL Creatinine 0.40 L (0.52-1.04) mg/dL Microbiology - Last 24 Hours (Table) 08/10/22 09:00 Gram Stain - Final Pleural Fluid Body Fluid Culture - Final 08/08/22 11:54 Blood Culture - Preliminary Blood No Growth after 120 hours Assessment and Plan Assessment: Impression: Acute on chronic hypoxic respiratory failure secondary to underlying COPD and bilateral pleural effusions and a iatrogenic pneumothorax and acute pseudomonal pneumonia, Bilateral pleural effusions Acute sepsis secondary to pseudomonas aeruginosa pneumonia Acute leukocytosis Acute exacerbation of COPD History of advanced COPD and previous insertion of zephyr valve Surgical wound dehiscence Left groin hematoma Multifocal atrial tachycardia Acute diastolic congestive heart failure, patient has preserved LV function Severe peripheral vessel occlusive disease and previous vascular intervention History of breast cancer History of Sjogren syndrome Dyslipidemia Chronic steroid dependence Recommendation: Continue present supportive care measures Continue bronchodilators continue antibiotics/Zosyn Vascular surgery to address left groin hematoma and bleeding Continue bronchodilators Continue prednisone Continue to hold Xarelto Continue GI prophylaxis Titrate oxygen accordingly We will continue to follow Time with Patient: Less than 30
--- NOTE | 2022-08-14 13:42 | P.PN ---
Subjective Progress Note Date: 08/14/22 Principal diagnosis: Shortness of breath Patient seen and examined today as a follow-up. She is admitted with CHF and COPD exacerbation. Previous left lower extremity revascularization. Apparently yesterday patient did have some bleeding again from the left groin incision sit e, she states it was not pulsatile and much less than on Sunday. Pressure dressing currently in place. Hemoglobin stable at 9.0. Patient states overall she is feeling better today. She has no pain in her lower extremity. She has good sensorimotor skills. She's been afebrile. Xarelrosendo is currently on hold. Objective - Vital Signs Vital signs: Vital Signs Temp 98 F 08/14/22 03:26 Pulse 78 08/14/22 08:16 Resp 16 08/14/22 03:26 BP 114/73 08/14/22 03:26 Pulse Ox 99 08/14/22 08:02 FiO2 Intake & Output 08/13/22 08/14/22 08/14/22 18:59 06:59 18:59 Intake Total 354 240 118 Balance 354 240 118 Intake: Intake, IV Titration 240 Amount Sodium Chloride 0.9% 1, 240 000 ml @ 20 mls/hr IV . Q24H [facility] Rx#:[id number] Oral 354 118 Other: Voiding Method External Catheter External Catheter # Voids 3 - Exam General appearance: The patient is alert, oriented, appears in no acute distress. HET: Head is normocephalic and atraumatic. Pupils are equal and reactive. Neck: Supple without lymphadenopathy. Trachea midline. Extremities: Left groin incision site with pressure dressing, hematoma palp ated. The left upper thigh wound with dressing clean dry and intact. Left lower wound with dressing clean dry and intact, edges with non-viable tissue. Doppler signal left PT and DP. Sensorimotor intact. Neurological: No focal deficits. - Labs CBC & Chem 7: 08/14/22 07:43 08/14/22 07:43 Labs: Abnormal Lab Results - Last 24 Hours (Table) 08/14/22 08/14/22 Range/Units 07:43 07:43 RBC 2.93 L (3.80-5.40) m/uL Hgb 9.1 L (11.4-16.0) gm/dL Hct 28.8 L (34.0-46.0) % RDW 16.8 H (11.5-15.5) % Neutrophils # 9.0 H (1.3-7.7) k/uL Lymphocytes # 0.7 L (1.0-4.8) k/uL Chloride 96 L (98-107) mmol/L Carbon Dioxide 43 H* (22-30) mmol/L BUN 25 H (7-17) mg/dL Creatinine 0.40 L (0.52-1.04) mg/dL Microbiology - Last 24 Hours (Table) 08/10/22 09:00 Gram Stain - Preliminary Pleural Fluid Body Fluid Culture - Preliminary 08/08/22 11:54 Blood Culture - Preliminary Blood No Growth after 120 hours Assessment and Plan Assessment: 1. COPD exacerbation 2. CHF exacerbation 3. Left groin surgical site dehiscence with active bleeding, left groin hematoma 4. Recent left lower extremity revascularization, with open wounds 5. Peripheral arterial disease 6. Atrial fibrillation 7. Bacteremia with pseudomonas aeruginosa, sputum culture positive for Pseudomonas aeruginosa 8. Bilateral lower lobe pneumonia Plan: 1. Keep pressure dressing in place left groin, monitor for bleeding 2. Continue local wound care 3. Continue recommendations from infectious disease 4. Continue to hold Xarelto for now 5. CT angiogram left lower extremity ordered urgent, iodine ALLERGY protocol orders in place and discussed with pharmacy 6. Continue medical management 7. Nothing by mouth after midnight for possible surgical intervention if needed pending left lower extremity CTA results Thank you for this consultation. We will continue to follow. The impression and plan of care has been dictated as directed. Dr. Garcia I performed a history and examination of this patient, discussed the same with the dictator. I agree with the dictator's note ,documented as a scribe. Any additional findings or plans will be noted.
[2022-08-14] MEDS: COLLAGENASE 250 UNIT/GM OINTMENT 30 GM TUBE TOPICAL SCH (13:53)
--- NOTE | 2022-08-14 20:34 | CT ---
EXAMINATION TYPE: CT angio lower extremity LT DATE OF EXAM: 08/14/2022 COMPARISON: None HISTORY: bleeding from left incision site, postop pt CT DLP: 1025.1 mGycm Automated exposure control for dose reduction was used. CONTRAST: Performed with IV Contrast, patient injected with 100ml mL of Isovue 370. There are 3-D post processed images. Images obtained from the mid pelvis to the bottom of the foot wi th the IV contrast. There is arterial flow in the left common iliac artery and left internal and external iliac artery. T here is variable plaque formation. There is irregular high density mass in the left inguinal region m easuring 5 cm and consistent with groin hematoma. There is arterial flow in the profunda femoris deepthi ry and the femoral artery. There is irregular contrast opacification of the soft tissues anterior to the femoral artery at the groin measuring 1.5 cm and consistent with pseudoaneurysm. There is also bu lging on the anterior wall of the femoral artery measuring 8 mm and consistent with aneurysm or pseud oaneurysm. There is arterial flow in the distal femoral artery and the popliteal artery there is elio c artery bypass graft noted. There is flow in the bypass graft. It is difficult to differentiate the artery and vein in the proximal left thigh. There is narrowing of the left femoral vein in the groin related to the pressure from hematoma. There appears to be some flow in the anterior tibial and poste rior tibial artery at the lower leg. There is arterial flow in the peroneal artery. There is arterial flow in the posterior tibial artery down to the mid metatarsals. No significant distal flow in the a nterior tibial artery. Filling of the popliteal artery is difficult to evaluate. This could be all co llateral vessels. No definite flow seen in the popliteal artery or the distal femoral artery. IMPRESSION: There is evidence of large pseudoaneurysm of the femoral artery in the left groin. There is large hem atoma in the left groin. The subcutaneous edema lateral to the left hip. There appears to be signific ant occlusive disease in the left femoral artery and collateral flow with reconstituted tibial arteri es below the knee. There is iliac artery bypass graft which appears patent. Subcutaneous bruising and edema lateral to the left hip.
[2022-08-14] MEDS: ATORVASTATIN 80 MG TAB PO SCH (21:05)
[2022-08-15] MEDS: SODIUM CHLORIDE 0.9% 1,000 ML IV SCH (05:30)
[2022-08-15] MEDS: PANTOPRAZOLE 40 MG TABLET PO SCH ×2 (05:47→18:48)
[2022-08-15 06:49] LABS: Anisocytosis Slight; Basophils % (A) 0 %; Eosinophils % (A) 0 %; HCT 26.4 % (34.0-46.0); HGB 8.4 gm/dL (11.4-16.0); Hypochromasia Marked; Lymphocytes # (A) 0.3 k/uL (1.0-4.8); Lymphocytes % (A) 3 %; MCH 31.1 pg (25.0-35.0); MCHC 31.8 g/dL (31.0-37.0); MCV 97.8 fL (80.0-100.0); Macrocytosis Slight; Mean Platelet Volume 8.2; Monocytes # (A) 0.4 k/uL (0-1.0); Monocytes % (A) 3 %; Neutrophils % (A) 93 %; Platelet Count 271 k/uL (150-450); Poikilocytosis Moderate; RDW 16.9 % (11.5-15.5); WBC 11.8 k/uL (3.8-10.6)
[2022-08-15 07:01] LABS: African American GFR (CKD) >90 (>60 ml/min/1.73 sqM); Blood Urea Nitrogen 25 mg/dL (7-17); Calcium 8.4 mg/dL (8.4-10.2); Chloride 97 mmol/L (98-107); Glucose 119 mg/dL (74-99); Non-African American GFR(CKD) >90 (>60 ml/min/1.73 sqM); Sodium 142 mmol/L (137-145)
[2022-08-15 07:08] LABS: Anion Gap 2 mmol/L
[2022-08-15 07:16] LABS: Carbon Dioxide 43 mmol/L (22-30)
[2022-08-15] MEDS: GABAPENTIN 300 MG CAP PO SCH ×3 (08:00→20:25)
[2022-08-15] MEDS: ASPIRIN 81 MG PO SCH (08:00)
[2022-08-15] MEDS: FUROSEMIDE 20 MG TAB PO SCH ×2 (08:00→20:25)
[2022-08-15] MEDS: DILTIAZEM ORAL 30 MG TAB PO SCH ×3 (08:00→20:25)
[2022-08-15] MEDS: DOCUSATE 100 MG CAP PO SCH (08:00)
[2022-08-15] MEDS: predniSONE 20 MG TAB PO SCH (08:00)
[2022-08-15] MEDS: METOPROLOL TARTRATE 25 MG TAB PO SCH ×2 (08:00→20:25)
[2022-08-15] MEDS: CHOLECALCIFEROL 25 MCG (1000 IU) TABLET PO SCH (08:00)
[2022-08-15] MEDS: HYDROXYCHLOROQUINE SULFATE 200 MG TAB PO SCH ×2 (08:01→22:37)
[2022-08-15] MEDS: LETROZOLE 2.5 MG TAB PO SCH (08:01)
[2022-08-15] MEDS: guaiFENesin-DM 600/30MG 1 EACH TAB.ER.12H PO SCH ×2 (08:01→22:38)
[2022-08-15] MEDS: NON FORMULARY DRUG (Fluticasone Propion/Salmeterol [Advair 500-50 Diskus] 1 EACH Blst.W.De INHALATION SCH ×2 (08:08→21:19)
[2022-08-15] MEDS: TIOTROPIUM 2.5 MCG INHALER INHALATION SCH (08:08)
[2022-08-15] MEDS: ALBUTEROL NEBULIZED 2.5 MG/3 ML INHALATION SCH ×3 (08:08→21:19)
--- NOTE | 2022-08-15 10:18 | P.PN ---
Subjective Progress Note Date: 08/15/22 Principal diagnosis: Shortness of breath Patient was seen and examined today as a follow-up. She states she is continuing to feel better. She remains on 2 L nasal cannula saturation 95-97%. She's been afebrile. Pressure dressing remains in place in the left groin. Denies any further bleeding. Repeat hemoglobin this morning with slight drop to 8.4. CT angiogram of left lower extremity reports evidence of large pseudoaneurysm of the femoral artery and the left groin. Large hematoma in the left groin. Subcutaneous edema lateral left hip, appears to be significant occ lusive disease in the left femoral artery and collateral flow with reconstituted tibial arteries below the knee. Iliac artery bypass graft which appears patent. Objective - Vital Signs Vital signs: Vital Signs Temp 97.9 F 08/15/22 00:00 Pulse 72 08/15/22 08:21 Resp 16 08/15/22 07:58 BP 119/50 08/15/22 07:58 Pulse Ox 97 08/15/22 07:58 FiO2 Intake & Output 08/14/22 08/15/22 08/15/22 18:59 06:59 18:59 Intake Total 556 250 Output Total 450 300 Balance 106 -50 Weight 53 kg Intake: Intake, IV Titration 320 250 Amount Sodium Chloride 0.9% 1, 320 250 000 ml @ 20 mls/hr IV . Q24H [facility] Rx#:[id number] Oral 236 Output: Urine 450 300 Other: Voiding Method External Catheter External Catheter # Bowel Movements 0 0 - Exam General appearance: The patient is alert, oriented, appears in no acute distress. HET: Head is normocephalic and atraumatic. Pupils are equal and reactive. Neck: Supple without lymphadenopathy. Trachea midline. Extremities: Left groin incision site with pressure dressing, clean dry and intact. The left upper thigh wound with dressing clean dry and intact. Left lower wound with dressing clean dry and intact, edges with non-viable tissue. Doppler signal left PT and DP. Sensorimotor intact. Neurological: No focal deficits. - Labs CBC & Chem 7: 08/15/22 06:34 08/15/22 06:34 Labs: Abnormal Lab Results - Last 24 Hours (Table) 08/15/22 08/15/22 Range/Units 06:34 06:34 WBC 11.8 H (3.8-10.6) k/uL RBC 2.70 L (3.80-5.40) m/uL Hgb 8.4 L (11.4-16.0) gm/dL Hct 26.4 L (34.0-46.0) % RDW 16.9 H (11.5-15.5) % Neutrophils # 11.0 H (1.3-7.7) k/uL Lymphocytes # 0.3 L (1.0-4.8) k/uL Chloride 97 L (98-107) mmol/L Carbon Dioxide 43 H* (22-30) mmol/L BUN 25 H (7-17) mg/dL Creatinine 0.36 L (0.52-1.04) mg/dL Glucose 119 H (74-99) mg/dL Microbiology - Last 24 Hours (Table) 08/08/22 11:54 Blood Culture - Final Blood No Growth after 144 hours 08/10/22 09:00 Gram Stain - Final Pleural Fluid Body Fluid Culture - Final Assessment and Plan Assessment: 1. Pseudoaneurysm left femoral artery, left groin hematoma 2. Acute on chronic anemia 3. COPD exacerbation 4. CHF exacerbation 5. Recent left lower extremity revascularization, with open wounds 6. Peripheral arterial disease 7. Atrial fibrillation on Xarelto, currently on hold 8. Bacteremia with pseudomonas aeruginosa, sputum culture positive for Pseudomonas aeruginosa 9. Bilateral lower lobe pneumonia Plan: 1. Keep pressure dressing in place left groin, monitor for bleeding 2. Give 1 unit PRBC transfusion prior to surgery 3. Patient scheduled for left pseudoaneurysm repair, evacuation of hematoma of left groin this afternoon 4. Continue to hold Xarelto for now 5. Continue local wound care 6. Continue medical management 7. Keep nothing by mouth Thank you for this consultation. We will continue to follow. The impression and plan of care has been dictated as directed. Dr. Garcia I performed a history and examination of this patient, discussed the same with the dictator. I agree with the dictator's note ,documented as a scribe. Any additional findings or plans will be noted.
[2022-08-15] MEDS: COLLAGENASE 250 UNIT/GM OINTMENT 30 GM TUBE TOPICAL SCH (10:53)
--- NOTE | 2022-08-15 12:35 | P.PN ---
Subjective Progress Note Date: 08/15/22 Principal diagnosis: Pseudomonas bacteremia Patient is a 67-year-old female with a past medical history significant for hypertension GERD atrial fibrillation peripheral arterial disease left breast cancer presenting to the ER for evaluation of increasing shortness of breath patient did have fever and elevated white count and recently did have a left lower extremity muscular procedure with open wound to the left medial thigh and left leg subsequently with evidence of pseudomonas bacteremia. Patient is status post left-sided thoracocentesis completed on 08/10/2022 with removal of 250 mL turbid fluid culture were negative patient also have a left lower extremity CT with evidence of large left femoral pseudoaneurysm and hematoma On today's evaluation that is 08/15/2022, the patient remains to be afebrile, the patient is breathing comfortably on 2 L nasal cannula oxygen, patient denies having any chest pain , the patient continued to have a cough but not bringing up any sputum, The patient denies further bleeding from her left thigh wound and denies any worsening pain Objective - Vital Signs Vital signs: Vital Signs Temp 97.9 F 08/15/22 00:00 Pulse 68 08/15/22 12:08 Resp 16 08/15/22 07:58 BP 119/50 08/15/22 07:58 Pulse Ox 97 08/15/22 07:58 FiO2 Intake & Output 08/14/22 08/15/22 08/15/22 18:59 06:59 18:59 Intake Total 556 250 Output Total 450 300 Balance 106 -50 Weight 53 kg Intake: Intake, IV Titration 320 250 Amount Sodium Chloride 0.9% 1, 320 250 000 ml @ 20 mls/hr IV . Q24H [facility] Rx#:[id number] Oral 236 Output: Urine 450 300 Other: Voiding Method External Catheter External Catheter External Catheter # Bowel Movements 0 0 - Exam GENERAL DESCRIPTION: An elderly female lying in bed in no distress RESPIRATORY SYSTEM: Unlabored breathing , decreased breath sounds at bases HEART: S1 S2 regular rate and rhythm , ABDOMEN: Soft , no tenderness EXTREMITIES: Left thigh wound and left leg wound is currently dressed no drainage on the dressing - Labs CBC & Chem 7: 08/15/22 06:34 08/15/22 06:34 Labs: Abnormal Lab Results - Last 24 Hours (Table) 08/12/22 08/15/22 08/15/22 Range/Units 18:09 06:34 06:34 WBC 11.8 H (3.8-10.6) k/uL RBC 2.70 L (3.80-5.40) m/uL Hgb 8.4 L (11.4-16.0) gm/dL Hct 26.4 L (34.0-46.0) % RDW 16.9 H (11.5-15.5) % Neutrophils # 11.0 H (1.3-7.7) k/uL Lymphocytes # 0.3 L (1.0-4.8) k/uL Chloride 97 L (98-107) mmol/L Carbon Dioxide 43 H* (22-30) mmol/L BUN 25 H (7-17) mg/dL Creatinine 0.36 L (0.52-1.04) mg/dL Glucose 119 H (74-99) mg/dL Crossmatch See Detail Microbiology - Last 24 Hours (Table) 08/08/22 11:54 Blood Culture - Final Blood No Growth after 144 hours 08/10/22 09:00 Gram Stain - Final Pleural Fluid Body Fluid Culture - Final Assessment and Plan (1) Bacteremia due to Pseudomonas Current Visit: Yes Status: Acute Code(s): R78.81 - BACTEREMIA; B96.5 - PSEUDOMONAS (MALLEI) CAUSING DISEASES [facility] SN[facility] Code(s): 1411742265 Plan: 1patient presented to hospital with sepsis in this patient who did a fever elevated white tachycardia and now with evidence of gram-negative bacteremia source questionably infected left lower extremity wound with a recent vascular procedure for PAD versus pneumonia however chest x-ray is most interstitial infiltrate although the patient did have elevated procalcitonin sputum cultures have been obtained which did grow pseudomonas aeruginosa 2-blood cultures repeat has been negative , pleural fluid cultures are so far negative 3-patient is afebrile and the white count mildly elevated at 11.8 today that we will monitor closely, the patient will continue with the Zosyn at the bedside questions concerned were answered Time with Patient: Less than 30
[2022-08-15] MEDS ORDERED: LACTATED RINGERS 1,000 ML IV ONE (12:56)
[2022-08-15 13:01] LABS: Prothrombin Time 10.8 sec (9.0-12.0)
[2022-08-15 13:07] LABS: Partial Thromboplastin Time 17.8 sec (22.0-30.0)
[2022-08-15] MEDS ORDERED: ONDANSETRON 4 MG/2 ML VIAL ONE (13:16)
[2022-08-15] MEDS ORDERED: DEXAMETHASONE SOD PHOSPHATE 4 MG/ML 1 ML VIAL IVP ONE (13:17)
[2022-08-15] MEDS ORDERED: ONDANSETRON 4 MG/2 ML VIAL IVP ONE (13:17)
--- NOTE | 2022-08-15 13:39 | P.ANPRN ---
Procedure Note - Anesthesia - Invasive Line Right Arterial Line Time Out Performed: Yes ([id number]) Date of Procedure: 08/15/22 Time of Procedure: 13:08 Location of Patient: PreOp Preparation: Sterile Prep Arterial Line Location: Briachial (right) Ultrasound Used: No Purpose - Visualization and Identification of Vasculature: No Needle Guage: 20g Image Stored and Saved: No Narrative: Central line placement per sterile protocol utilized.
--- NOTE | 2022-08-15 13:55 | P.PN ---
Subjective Progress Note Date: 08/15/22 Principal diagnosis: Acute hospital-acquired pseudomonal pneumonia and acute hypoxic respiratory failure 67-year-old female patient who presented to the hospital having fever and some worsening shortness of breath. The patient is known to have advanced COPD and she has undergone [place] valve insertion regarding her advanced COPD and the patient has been maintained on a combination of Spiriva and Advair an outpatient basis. The patient is oxygen dependent. The patient does also use oxygen at 2 L per minute nasal cannula at baseline. Noted the patient was in the hospital approximately 3 weeks ago and the patient underwent a vascular/femoral endarterectomy on her left femoral artery for symptomatic claudication. At that time, I took care of this patient in the intensive care unit. The patient is also has severe peripheral vascular disease and she has undergone prior stenting to her bilateral common iliacs and external iliacs and subsequently she required the left femoral and left profunda endarterectomy and left femoral to tibial peroneal trunk bypass. Postop, she developed some swelling in lower extremity and she does have a 4.1 and in her upper thigh with some purulent drainage at the base. During this current hospital stay, the patient was found to be septic. Blood culture was positive for pseudomonas aeruginosa and the patient was seen by infectious disease and the patient was started on IV Zosyn. Meanwhile, the patient is having worsening shortness of breath, cough and congestion. She has excessively congestive cough. She is unable to bring up much of sputum. Her sputum sample has been collected and is showing some few gram-negative bacilli. Her initial white cell count was at 17.2 and dropped down to 14.7. Her pro calcitonin level was 8.0. The chest x-ray showing bilateral lower lobe pulmonary infiltrates and the patient also has a some mild thoracic kyphosis and anterior wedging of the lower was thoracic vertebral and order of 30%. On 08/09/2022, the patient is still complaining of shortness of breath. As mentioned, the patient advanced COPD. For now, sputum is growing gram-negative bacillus and the patient has blood cultures is positive for pseudomonas aeruginosa. The patient is on IV Zosyn. This is most likely bilateral pneumonia with secondary sepsis. At the same time, CAT scan of the chest was done that showed limited infiltration of the lung bases and small to moderate- sized bilateral pleural effusion the lung bases. There is extensive emphysema bilaterally. Meanwhile, the patient is still having a congested cough. Unable to bring up much of sputum. No fever. No chills. No other new complaints otherwise for now. On 08/10/2022, the patient's condition is essentially the same. Sputum sample was positive for pseudomonas aeruginosa. Blood culture was also positive for pseudomonas aeruginosa the patient is currently on IV Zosyn. The patient bilateral pleural effusion. Ultrasound marking of the chest was done and I performed a left-sided thoracentesis today and the patient able to 10% p neumothorax on the left. Total amount of fluid removed was around 250 mL. The patient remained hemodynamically stable. The patient reported improvement in her shortness of breath following the procedure. Nevertheless, she continues to have a congested cough. She is on Mucinex. Unable to bring up much of sputum. The WBC count is improving the white second of 11.6 with a hemoglobin of 9.8. B UN is at 25 with a creatinine of 0.5 and a sodium is at 140. On today's evaluation of 08/11/2022, the patient continues to have a congestive cough, unable to bring up much of sputum. She suffers from pseudomonal bilateral lower lobe pneumonia and bilateral pleural effusion. I performed a thoracentesis fluid on the left external to be transudate. She ended up having a temperature pneumothorax on the left. A repeat chest x-ray will be done today. Meanwhile, earlier this morning, the patient had an acute hemorrhage from her left groin. The surgical once from her previous vascular surgery the past. This wound was developed by vascular surgery. Pressure was applied and currently there is no evidence of any acute bleeding. She is weak. On her blood work, the WBC was 11.6 with a hemoglobin 9.8, BUN is 25 with a creatinine of 0.5 and a sodium level is 140 08/12/2022, slightly improved compared to yesterday, continued to have congestive cough. The repeat chest x-ray was done that showed persistent lower lobe pneumonia. The left-sided pneumothorax remains unchanged. The pleural fluid that was aspirated is a transudate. No other new complaints. No active bleeding from the surgical one-sided. No new labs from today. Remains on bronchodilators. Remains on IV Zosyn. Remains on prednisone. She is complaining of heartburn. She'll be given Protonix in addition to Tums for her ongoing active symptoms of heartburn. On today's evaluation of 08/13/2022, respiratory status is slightly improved and the patient's cough and congestion is gradually improving. Her cough is better. She remains on oxygen by nasal cannula. She remains on IV Zosyn. She remains on bronchodilators, Spiriva, prednisone patient is also on oral Lasix 20 mg by mouth twice a day. She is complaining of heartburn and the patient remains on accommodation of Protonix and Tums. She did have another episode of bleeding from her left groin incision and she currently has a pressure dressing applied. Vascular surgeries on the case and they're informed. No evidence of any hematoma. Hemoglobin is at 9.0 which is essentially stable. Patient was seen today on 08/14/2022, doing well from the pulmonary perspective, feeling much better, breathing easier, however she is experiencing bleeding from her left groin which is being addressed now by vascular surgery. Patient had recent the left lower extremity revascularization and a draining hematoma of the left inguinal area with no evidence of pseudoaneurysm. Continues to have a pressure dressing in the left groin, and again this is being addressed by vascular surgery on the case. Labs today showed WBC count of 10.3 hemoglobin is 9.1, elective lites are normal bicarb is 43 renal profile is normal. Ultrasound of the left groin done recently showed a fluid collection [id number] hypoechoic area, consistent with hematoma there was no evidence of pseudoaneurysm. Last chest x-ray from 08/11 showed evidence of minimal left-sided pneumothorax and trace of pleural effusions. Pleural effusion cytology showed no evidence of malignancy. Reevaluated today on 08/15/2022, patient is continuing to do well from the pulmonary perspective, however her CT angiogram of the left femoral artery showed evidence of pseudoaneurysm, hematoma, and the patient is now being evaluated for possible surgery for her large pseudoaneurysm of the femoral artery and hematoma in the left groin. Her iliac artery bypass graft appeared patent. Patient will receive a unit of packed RBCs prior to her surgery, and the surgery scheduled sometime later this afternoon, and Xarelto remains on hold. Objective - Vital Signs Vital signs: Vital Signs Temp 97.1 F L 08/15/22 13:01 Pulse 72 08/15/22 13:26 Resp 16 08/15/22 13:26 BP 132/71 08/15/22 13:26 Pulse Ox 98 08/15/22 13:26 FiO2 Intake & Output 08/14/22 08/15/22 08/15/22 18:59 06:59 18:59 Intake Total 556 250 0 Output Total 450 300 Balance 106 -50 0 Weight 53 kg Intake: Intake, IV Titration 320 250 Amount Sodium Chloride 0.9% 1, 320 250 000 ml @ 20 mls/hr IV . Q24H [facility] Rx#:[id number] Oral 236 Blood Product 0 Rc Pheresis 2 As3 Unit 0 [id number] Output: Urine 450 300 Other: Voiding Method External Catheter External Catheter External Catheter # Bowel Movements 0 0 - Exam Physical Exam: Revealed a 67-year-old female in no distress, on room air. Head: Atraumatic, normocephalic. HEENT:[Neck is supple.] [No neck masses.] [No thyromegaly.] [No JVD.] Chest: [Diminished breath sounds at the bases no crackles or rhonchi or wheezes Cardiac Exam: [Normal S1 and S2, no S3 gallop, no murmur.] Abdomen: [Soft, nontender, no megaly, no rebound, no guarding, normal bowel sounds.] Extremities: Left groin incision site with pressure dressing, clean dry and intact. The left upper thigh wound with dressing clean dry and intact. Left lower wound with dressing clean dry and intact, edges with non-viable tissue. Doppler signal left PT and DP. Sensorimotor intact. Neurological Exam: [No focal neurologic deficit.] Alert and oriented 3. Psychiatric: Normal mood affect and normal mental status examination. Skin: No rashes. - Labs CBC & Chem 7: 08/15/22 06:34 08/15/22 06:34 Labs: Abnormal Lab Results - Last 24 Hours (Table) 08/12/22 08/15/22 08/15/22 Range/Units 18:09 06:34 06:34 WBC 11.8 H (3.8-10.6) k/uL RBC 2.70 L (3.80-5.40) m/uL Hgb 8.4 L (11.4-16.0) gm/dL Hct 26.4 L (34.0-46.0) % RDW 16.9 H (11.5-15.5) % Neutrophils # 11.0 H (1.3-7.7) k/uL Lymphocytes # 0.3 L (1.0-4.8) k/uL APTT (22.0-30.0) sec Chloride 97 L (98-107) mmol/L Carbon Dioxide 43 H* (22-30) mmol/L BUN 25 H (7-17) mg/dL Creatinine 0.36 L (0.52-1.04) mg/dL Glucose 119 H (74-99) mg/dL Crossmatch See Detail 08/15/22 Range/Units 12:24 WBC (3.8-10.6) k/uL RBC (3.80-5.40) m/uL Hgb (11.4-16.0) gm/dL Hct (34.0-46.0) % RDW (11.5-15.5) % Neutrophils # (1.3-7.7) k/uL Lymphocytes # (1.0-4.8) k/uL APTT 17.8 L (22.0-30.0) sec Chloride (98-107) mmol/L Carbon Dioxide (22-30) mmol/L BUN (7-17) mg/dL Creatinine (0.52-1.04) mg/dL Glucose (74-99) mg/dL Crossmatch Microbiology - Last 24 Hours (Table) 08/08/22 11:54 Blood Culture - Final Blood No Growth after 144 hours 08/10/22 09:00 Gram Stain - Final Pleural Fluid Body Fluid Culture - Final Assessment and Plan Assessment: Impression: Pseudoaneurysm of left femoral artery and left groin hematoma. Scheduled for surgery later this afternoon. Acute on chronic hypoxic respiratory failure secondary to underlying COPD and bilateral pleural effusions and a iatrogenic pneumothorax and acute pseudomonal pneumonia, Bilateral pleural effusions Acute sepsis secondary to pseudomonas aeruginosa pneumonia History of advanced COPD and previous insertion of zephyr valve Multifocal atrial tachycardia Acute diastolic congestive heart failure, patient has preserved LV function Severe peripheral vessel occlusive disease and previous vascular intervention History of breast cancer History of Sjogren syndrome Dyslipidemia Chronic steroid dependence Recommendation: Agree with surgical plans for her left femoral pseudoaneurysm this afternoon 1 unit of packed RBCs to be given prior to surgery Continue present supportive care measures Continue bronchodilators continue antibiotics/Zosyn Continue bronchodilators Continue prednisone Continue to hold Xarelto Continue GI prophylaxis We will continue to follow Time with Patient: Less than 30
[2022-08-15] MEDS ORDERED: MIDAZOLAM 2 MG/2 ML VIAL ONE (14:12)
[2022-08-15] MEDS ORDERED: PROPOFOL 10 MG/ML 20 ML VIAL IV ONE (14:12)
[2022-08-15] MEDS ORDERED: fentaNYL (PF) 50 MCG/ML 2 ML AMP ONE (14:12)
[2022-08-15] MEDS ORDERED: HEPARIN SODIUM,PORCINE 5,000 UNIT/ML 1 ML VIAL ONE (14:12)
[2022-08-15] MEDS ORDERED: KETAMINE 10 MG/ML 20 ML VIAL ONE (14:12)
[2022-08-15] MEDS ORDERED: SODIUM CHLORIDE 0.9% 50 ML with ceFAZolin 2,000 MG IV ONE ×2 (14:30)
[2022-08-15] MEDS ORDERED: HEPARIN SODIUM,PORCINE 10,000 UNIT in SODIUM CHLORIDE 0.9% 1,000 ML IRRIGATION ONE (14:55)
[2022-08-15] MEDS ORDERED: ceFAZolin 2 GM in SODIUM CHLORIDE 0.9% 500 ML 500 ML IRRIGATION ONE (14:56)
[2022-08-15] MEDS ORDERED: GELATIN SPONGE,ABSORB (LARGE) 1 EACH SPONGE TOPICAL ONE ×2 (15:54)
[2022-08-15] MEDS ORDERED: THROMBIN (BOVINE) 5,000 UNIT VIAL TOPICAL ONE ×2 (15:55)
[2022-08-15] MEDS ORDERED: PIPERACILLIN-TAZOBACTAM 3.375 GM in SODIUM CHLORIDE 0.9% 100 ML IVPB SCH (16:00)
[2022-08-15] MEDS ORDERED: TOBRAMYCIN SULFATE 1.2 GM VIAL MISCELLANE ONE (16:05)
[2022-08-15] MEDS ORDERED: VANCOMYCIN 1,000 MG VIAL MISCELLANE ONE (16:05)
--- NOTE | 2022-08-15 17:16 | P.OP ---
Date of Procedure: 08/15/22 Preoperative Diagnosis: left femoral artery pseudoaneurysm with bleed Postoperative Diagnosis: Left femoral pseudoaneurysm, hemorrhage Left femoral patch leak Procedure(s) Performed: Left groin exploration Left femoral artery hemorrhage control and culture Left femoral patch explantation Left external iliac endarterectomy and partial stent removal Open thrombectomy of the left femoral-tibial vein bypass and profundus artery Patch angioplasty of the left common femoral and external iliac artery with a 9x2cm bovine pericardial patch Antibiotic bead placement Incisional vac placement Anesthesia: local, spinal Surgeon: Azar Garcia Estimated Blood Loss (ml): 600 Pathology: other (groin culture) Condition: stable Disposition: PACU Indications for Procedure: 67 year old female with previous history of femoral stenting across the profundus, left lower extremity critical limb ischemia with previous stent explantation, femoral endarterectomy with femoral to tibial bypass was being treated in the hospital for pneumonia and CHF exacerbation presents to the OR for repair of a pseudoaneurysm in the left groin. She has been on steroids since admission and had two episodes of bleeding from the groin. She underwent ultrasound which was negative for pseudoaneurysm or bleed but developed another incident of bleeding and had a CTA which demonstrated a large pseudoaneurysm. Operative Findings: suture on lateral aspect of patch proximal to the bypass torn. Description of Procedure: After written and informed consent was obtained the patient and all risks, benefits and complications were described the patient was brought to the operative suite and laid in the supine position. The area of the abdomen, groins and left lower extremity were prepped and draped in usual sterile fashion after appropriate anesthetic was performed per the anesthesiologist. Timeout was performed in normal fashion antibiotics were given prior to the procedure. The left groin incision was then opened with a 10 blade scalpel and dissection was carried down overlying the hematoma. Utilizing finger fracture of the hematoma was removed and upon evacuation of the hematoma there was pulsatile blood flow encountered from the common femoral artery. Pressure was then placed directly over the area that was bleeding with a finger. We retractor was then placed to give better access and visualization to the bleeding sites. Proximal and distal dissection was then carried around the common femoral, profundus femoris and superficial femoral artery and these were controlled with vascular clamps. Heparin was then administered systemically. Once controlled better visualization of the common femoral artery was obtained and there was a large opening on the lateral aspect of the patch. The bypass distally was widely patent without any issues with the anastomosis. Backbleeding was assessed and minimal backbleeding was noted from the bypass and therefore a 3 David was placed without any thrombus removed but there was improved backbleeding after passing of the balloon. The profunda was also assessed and David was passed removing some mild thrombus with improvement of the back bleeding. The vessel was then infused with heparinized saline. Inflow was also assessed and was pulsatile but there was a piece of stent within the common femoral that was frayed and therefore this portion was removed. There was some plaque underneath the stent that was removed that required endarterectomy and plaque was removed with a [place]. Due to the severity of the injury to the patch, it was removed and the vessel edges were resected. The area did not appear to be infected and no purulence was encountered, Cultures were obtained at that time. Once the area was resected down to good healthy tissue with a 9 x 2 cm bovine pericardial patch was chosen and cut to appropriate length and patch angioplasty was performed with 5-0 Prolene suture in a running fashion. Once completed was released revealing good pulsatile blood flow within the profundus femoris and femoral tibial bypass. The area was then copiously irrigated with anabolic solution. Hemostasis was assured with Gelfoam and thrombin and Tisseel. Due to the possibility of infection antibiotic beads, pace was created and placed within the wound bed. A 19 [place] RAJESH drain was then placed overlying the antibiotic beads and sutured in place with 2-0 nylon suture. The incision was then closed in a multilayer fashion with 3-0 Vicryl for the subcutaneous tissue and 3-0 nylon in a Vertical mattress fashion. Skin was then cleansed and a Prevena Incisional VAC was placed. The patient tolerated the procedure well and had a palpable pulse within the femoral to tibial bypass.
[2022-08-15] MEDS: PIPERACILLIN-TAZOBACTAM 3.375 GM in SODIUM CHLORIDE 0.9% 100 ML IVPB SCH ×2 (18:47→20:26)
[2022-08-15 20:19] LABS: Anisocytosis Slight; HCT 32.6 % (34.0-46.0); HGB 10.5 gm/dL (11.4-16.0); Hypochromasia Moderate; MCH 30.3 pg (25.0-35.0); MCHC 32.2 g/dL (31.0-37.0); MCV 94.1 fL (80.0-100.0); Mean Platelet Volume 8.7; Platelet Count 196 k/uL (150-450); Poikilocytosis Marked; RBC 3.46 m/uL (3.80-5.40); RDW 16.8 % (11.5-15.5); WBC 26.2 k/uL (3.8-10.6)
[2022-08-15] MEDS: ATORVASTATIN 80 MG TAB PO SCH (20:25)
[2022-08-15 20:40] LABS: Band Neutrophils % 5 %; Lymphocytes # (M) 0.52 k/uL (1.0-4.8); Monocytes # (M) 0.52 k/uL (0-1.0); Myelocytes # (M) 0.26 k/uL (0); Myelocytes % 1 %; Neutrophils % (M) 92 %; Nucleated Red Blood Cells 0 /100 WBC (0-0); Polychromasia Present; Total Cells Counted 200; Toxic Granulation Present; Toxic Vacuolation Present
[2022-08-15] MEDS: HYDROcodone/APAP 5-325MG 1 EACH TAB PO PRN (22:37)
--- NOTE | 2022-08-16 00:49 | P.PN ---
Subjective Progress Note Date: 08/14/22 67-year-old female patient; past medical history significant for lower extremities peripheral arterial disease as well as severe COPD and chronic hypoxic respiratory failure on oxygen and also hypertension and dyslipidemia and history of multifocal atrial tachycardia, presented to the hospital complaining of shortness of breath. The patient does have a baseline shortness of breath and she is on oxygen continuously at 2 L. For the last few days she has been experiencing increasing in the shortness of breath associated according to her and her with fever and cough productive of whitish sputum. Beside that she developed bilateral lower extremities edema. No symptoms of any chest pain or chest discomfort or dizziness or lightheadedness but she has been experiencing symptoms of heart racing and fluttering was no presyncope or syncope. The patient and her called ambulance and the patient was brought to the emergency department for further evaluation. During this admission she underwent a workup including an EKG showing what it seems to be multifocal atrial tachycardia with differential diagnosis of atrial fibrillation and also she underwent cardiac enzymes showed mildly abnormal troponin. The chest x-ray showed findings consistent with CHF. The rest of the blood work came in to be unremarkable. On examination she was in mild respiratory distress. She was also coughing during the examination. She does have bilateral expiratory wheezing and mild bilateral lower except his edema. Reviewing the vital signs revealed marginally low blood pressure with systolic pressure in the 90s. Currently she is on Cardizem IV and she is also on Lasix IV. 08/07/2022 This is a pleasant 67 years old female with multiple medical problems who was admitted initially because of dyspnea found to have acute CHF exacerbation and also she has evidence of bilateral pneumonia, she had a fever of 101.3 on admission. She still feels generally weak and tired, mildly tachypneic. Been followed by cardiology and infectious disease dating with positive blood culture for pseudomonas. And covered with abdomen Lasix 20 mg, IV Zosyn. Also she has history of COPD with chronic hypoxic respiratory failure on 2 L of oxygen at home, currently she is using before liters per minute. She has some evidence of diminished air entry in both sides under going to start prednisone 40 mg daily. She is on home dose of 0.5 mg twice a day for paroxysmal atrial fibrillation. Also she is on aspirin 325 mg. also patient follow up with Dr. Curran reported recent revascularizations surgery for his left lower extremity vascular disease, she still Dr. Curran last week and was doing well, she supposed to see him today so he was consulted 08/08/2022 Patient awake and alert, she still have little short of breath and tachypnea, however she feels better. Her cough feels better bleeding looks the same, she still have exertional dyspnea with walking. She still feels generally weak. States to have limited air entry on both lung sewell, no more fever and vitals are stable. Her abdomen Lasix switched to oral pills. Nutrition Helper on the case and she was kept on Xarelto and metoprolol and Cardizem for her A. fib, Patient also have evidence with pseudomonas bacteremia, source could be pneumo gisella versus left lower extremity wound, culture is been followed closely. Patient is covered with Zosyn. Infectious disease team on the case. 08/09/2022 Patient states that her leg feels better today, she still complaining of from shortness of breath although she has this wheezing and better air entry limitations to there. Also ultrasound showing bilateral pleural effusion. Vitals are stable. Patient remains on Zosyn, prednisone 40 mg and oral Lasix 20 mg twice daily. 08/10/2022 Patient is still improving slowly and gradually regarding her pneumonia, she sent in bed most of the time, she has recovered is improving with Robitussin-DM which is continued. Chest x-ray from today show significant improvement compared to a few days ago. She underwent a thoracocentesis with 250 mL of turbid fluid removed. Sputum culture is growing Pseudomonas same as blood culture, patient is currently co ilana with Zosyn. Also she is on a prednisone 40 mg for her possible COPD element. Cardiology team already signed off with recommendation to follow up with Dr. Stewart as an outpatient. 08/11/2022 Patient today awake alert, she still feels short of breath although reports some improvement, she has weak cough and difficult to bring in her phlegm up. Also she's been complaining from bleeding from her left groin area. A sputum culture blood culture both grown Pseudomonas, she underwent thoracocentesis and cytology is pending, she did have some pneumothorax, pulmonary team on the case, her breathing is a stable and actually is improving. Vascular surgery on the case and 0 to was put on hold because of bleeding from the surgical site of her left leg. She kept on prednisone 40 mg as per a burst taper as well as Zosyn. Surgical consult is on the case Patient remains critical. 08/12/2021 Patient had actually looks much better today compared to yesterday, she is more relaxed and pleasant she still have some dyspnea, her coughing is stronger than yesterday as well. She still hemodynamically stable. Oxygenation is improving. Yesterday she had bleeding from her left groin wound related to vascular surgery, no more bleeding today. Result is on hold. Patient remains on Zosyn Cytology is still pending 08/13/2022 Patient is improving slowly and gradually, her dyspnea significantly improved o stephy the last 2 days, although no much difference between yesterday and today. Her cough is better as well. Also bleeding on her left groin has stopped, though remains on hold. Vascular surgery on the case. She remains on Zosyn and Protonix, also has a prednisone 40 mg burst taper. Also on oral Lasix 20 mg twice daily. 08/14/2022 Patient is currently resting in bed. Awake alert and oriented x3. Breathing status is better. Currently requiring 2 L oxygen via nasal cannula. On treatment for Pseudomonas pneumonia and Pseudomonas bacteremia with Zosyn. Otherwise patient was noticed to have bleeding from the left groin and had a recent left elective revascularization. CT of the lower extremity was done which showed there is evidence of large pseudoaneurysm of the femoral artery in the left groin. There is a large hematoma in the left groin. Subcutaneous edema lateral to the left hip. Appears to be significant occlusive disease in the left femoral artery and collateral flow with reconstituted tibial arteries below the knee. The iliac artery bypass graft which appears patent. Laboratory data showed WBC 11.8 hemoglobin 8.4 and platelets 271 Sodium 142 potassium 4.0 chloride 97 bicarb is 43 BUN 25 and creatinine 0.36 and blood sugar is 119. Pulmonary, ID and vascular surgery is on board. Pleural fluid cytology on 08/10/2022 showed reactive mesothelial cells., Macrophages and mixed inflammatory cells. No cytologically malignant cells identified. Current medications reviewed. Objective - Vital Signs Vital signs: Vital Signs Temp 98 F 08/14/22 03:26 Pulse 78 08/14/22 08:16 Resp 16 08/14/22 03:26 BP 114/73 08/14/22 03:26 Pulse Ox 99 08/14/22 08:02 FiO2 Intake & Output 0308/14/22 08/14/22 18:59 06:59 18:59 Intake Total 354 240 118 Balance 354 240 118 Intake: Intake, IV Titration 240 Amount Sodium Chloride 0.9% 1, 240 000 ml @ 20 mls/hr IV . Q24H [facility] Rx#:[id number] Oral 354 118 Other: Voiding Method External Catheter External Catheter # Voids 3 - Exam - Exam -GENERAL: The patient is alert and oriented x3, not in any acute distress. Well developed, well nourished. Generally weak HEENT: Pupils are round and equally reacting to light. EOMI. No scleral icterus. No conjunctival pallor. Normocephalic, atraumatic. No pharyngeal erythema. No thyromegaly. CARDIOVASCULAR: S1 and S2 present. No murmurs, rubs, or gallops. -PULMONARY: Chest is clear to auscultation, no wheezing or crackles. Decreased air entry on both sides ABDOMEN: Soft, nontender, nondistended, normoactive bowel sounds. No palpable organomegaly. Left groin pressure bandage in place. MUSCULOSKELETAL: No joint swelling or deformity. -EXTREMITIES: No cyanosis, clubbing, or pedal edema. Open wound on the left leg NEUROLOGICAL: Gross neurological examination did not reveal any focal deficits. SKIN: No rashes. no petechiae. - Labs CBC & Chem 7: 08/15/22 19:33 08/15/22 06:34 Labs: Abnormal Lab Results - Last 24 Hours (Table) 08/14/22 08/14/22 Range/Units 07:43 07:43 RBC 2.93 L (3.80-5.40) m/uL Hgb 9.1 L (11.4-16.0) gm/dL Hct 28.8 L (34.0-46.0) % RDW 16.8 H (11.5-15.5) % Neutrophils # 9.0 H (1.3-7.7) k/uL Lymphocytes # 0.7 L (1.0-4.8) k/uL Chloride 96 L (98-107) mmol/L Carbon Dioxide 43 H* (22-30) mmol/L BUN 25 H (7-17) mg/dL Creatinine 0.40 L (0.52-1.04) mg/dL Microbiology - Last 24 Hours (Table) 08/10/22 09:00 Gram Stain - Preliminary Pleural Fluid Body Fluid Culture - Preliminary 08/08/22 11:54 Blood Culture - Preliminary Blood No Growth after 120 hours Assessment and Plan Assessment: -Bilateral pneumonia secondary to pseudomonas. Status post left thoracocentesis with 50 mL of turbid fluid removed on 08/10. Fluid cytology showed no malignant cells. -Pseudomonas bacteremia -Large left groin pseudoaneurysm with recent history of left lower extremity revascularization. -Acute CHF exacerbation -Paroxysmal atrial fibrillation's with elevated troponin -Acute COPD exacerbation -Moderate left pneumothorax -Acute on chronic hypoxic respiratory failure -Cyanosis present on admission with fever and leukocytosis -Peripheral vascular disease status post recent revascularization of the left lower extremity with open wound, with bleeding from one side and hematoma of the left groin Plan: Continue with Zosyn Xeralto (on hold during to bleeding) Continue with prednisone burst taper and breathing treatment Continue with oral Lasix, cardiology signed off pulmonary, vascular surgeon and infectious disease consult DVT prophylaxis: Xeralto (on hold) c/w mechanical GI Prophylaxis: Ppi PT/OT: Pending Prognosis is guarded
[2022-08-16] MEDS ORDERED: NITROGLYCERIN OINT 1 INCH/GM PACKET TOPICAL STA (02:58)
[2022-08-16] MEDS: PANTOPRAZOLE 40 MG TABLET PO SCH ×2 (06:40→14:52)
[2022-08-16] MEDS: PIPERACILLIN-TAZOBACTAM 3.375 GM in SODIUM CHLORIDE 0.9% 100 ML IVPB SCH ×3 (06:40→21:03)
[2022-08-16] MEDS: HYDROcodone/APAP 5-325MG 1 EACH TAB PO PRN ×2 (06:41→10:48)
[2022-08-16] MEDS: SODIUM CHLORIDE 0.9% 1,000 ML IV SCH (06:41)
[2022-08-16 07:52] LABS: Anisocytosis Slight; Basophils % (A) 0 %; Eosinophils # (A) 0.1 k/uL (0-0.7); Eosinophils % (A) 0 %; HCT 27.9 % (34.0-46.0); HGB 9.2 gm/dL (11.4-16.0); Hypochromasia Moderate; Lymphocytes # (A) 0.3 k/uL (1.0-4.8); Lymphocytes % (A) 2 %; MCH 31.1 pg (25.0-35.0); MCHC 33.1 g/dL (31.0-37.0); MCV 94.1 fL (80.0-100.0); Mean Platelet Volume 8.8; Monocytes # (A) 0.4 k/uL (0-1.0); Monocytes % (A) 2 %; Neutrophils # (A) 17.9 k/uL (1.3-7.7); Neutrophils % (A) 95 %; Platelet Count 185 k/uL (150-450); Poikilocytosis Marked; RBC 2.96 m/uL (3.80-5.40); WBC 18.8 k/uL (3.8-10.6)
[2022-08-16] MEDS: TIOTROPIUM 2.5 MCG INHALER INHALATION SCH (08:06)
[2022-08-16] MEDS: NON FORMULARY DRUG (Fluticasone Propion/Salmeterol [Advair 500-50 Diskus] 1 EACH Blst.W.De INHALATION SCH ×2 (08:07→21:16)
[2022-08-16] MEDS: ALBUTEROL NEBULIZED 2.5 MG/3 ML INHALATION SCH ×3 (08:07→21:15)
[2022-08-16 08:13] LABS: African American GFR (CKD) >90 (>60 ml/min/1.73 sqM); Blood Urea Nitrogen 30 mg/dL (7-17); Calcium 7.7 mg/dL (8.4-10.2); Chloride 99 mmol/L (98-107); Glucose 90 mg/dL (74-99); Non-African American GFR(CKD) >90 (>60 ml/min/1.73 sqM); Potassium 3.9 mmol/L (3.5-5.1); Sodium 139 mmol/L (137-145)
[2022-08-16 08:20] LABS: Anion Gap -1 mmol/L
[2022-08-16 08:26] LABS: Carbon Dioxide 41 mmol/L (22-30)
[2022-08-16] MEDS: DOCUSATE 100 MG CAP PO SCH (09:07)
[2022-08-16] MEDS: GABAPENTIN 300 MG CAP PO SCH ×3 (09:07→21:03)
[2022-08-16] MEDS: HYDROXYCHLOROQUINE SULFATE 200 MG TAB PO SCH ×2 (09:07→21:11)
[2022-08-16] MEDS: predniSONE 20 MG TAB PO SCH (09:07)
[2022-08-16] MEDS: ASPIRIN 81 MG PO SCH (09:07)
[2022-08-16] MEDS: guaiFENesin-DM 600/30MG 1 EACH TAB.ER.12H PO SCH ×2 (09:07→21:11)
[2022-08-16] MEDS: CHOLECALCIFEROL 25 MCG (1000 IU) TABLET PO SCH (09:07)
[2022-08-16] MEDS: DILTIAZEM ORAL 30 MG TAB PO SCH ×3 (09:07→21:03)
[2022-08-16] MEDS: LETROZOLE 2.5 MG TAB PO SCH (09:07)
[2022-08-16] MEDS: METOPROLOL TARTRATE 25 MG TAB PO SCH ×2 (09:07→21:03)
[2022-08-16] MEDS: FUROSEMIDE 20 MG TAB PO SCH ×2 (09:07→14:52)
[2022-08-16] MEDS: HYDROmorphone 0.5 MG/0.5 ML SYRINGE IVP PRN ×3 (09:23→21:03)
[2022-08-16] MEDS: COLLAGENASE 250 UNIT/GM OINTMENT 30 GM TUBE TOPICAL SCH (09:53)
--- NOTE | 2022-08-16 10:35 | P.PN ---
Subjective Progress Note Date: 08/16/22 Principal diagnosis: Shortness of breath, left femoral artery pseudoaneurysm with bleed, left femoral patch leak Patient was seen and examined he has a follow-up. Yesterday she underwent surgery of the left lower extremity for a left femoral artery pseudoaneurysm with bleed in the left femoral patch leak. She currently has a prevena dressing in place at the left groin, with a RAJESH drain approximately 30 mL serosanguineous drainage. Patient states that she is having pain in her left foot which is new from previous. She states most the pain is in the lateral aspect. She has good sensorimotor, able to move her foot. She has been afebrile. Yesterday she had 2 units of blood, Repeat hemoglobin today 9.2, WBC 18.8 Objective - Vital Signs Vital signs: Vital Signs Temp 97.5 F L 08/16/22 08:00 Pulse 68 08/16/22 08:07 Resp 16 08/16/22 08:00 BP 102/58 08/16/22 08:00 Pulse Ox 99 08/16/22 08:00 FiO2 Intake & Output 08/15/22 08/16/22 08/16/22 18:59 06:59 18:59 Intake Total 1117 100 Output Total 750 345 35 Balance 367 -245 -35 Intake: IV 552 Intake, IV Titration 100 Amount Piperacillin-Tazobactam 3 100 .375 gm In Sodium Chloride 0.9% 100 ml @ 25 mls/hr IVPB Q8H [facility] Rx#: [id number] Blood Product 565 Rc Pheresis 2 As3 Unit 281 [id number] Rc Pheresis 2 As3 Unit 284 [id number] Output: Drainage 35 35 Left Groin 35 35 Urine 100 310 Estimated Blood Loss 650 Other: Voiding Method External Catheter External Catheter External Catheter # Voids 0 - Exam General appearance: The patient is alert, oriented, appears in no acute distress. HET: Head is normocephalic and atraumatic. Pupils are equal and reactive. Neck: Supple without lymphadenopathy. Trachea midline. Extremities: Left groin with Prevena dressing in place with good suction, RAJESH drain with approximately 30 miles serosanguineous drainage. Left lower extremity dressing clean dry and intact. Doppler signal left PT and DP. Sensorimotor intact. Neurological: No focal deficits. - Labs CBC & Chem 7: 08/16/22 07:31 08/16/22 07:31 Labs: Abnormal Lab Results - Last 24 Hours (Table) 08/12/22 08/15/22 08/15/22 Range/Units 18:09 12:24 19:33 WBC 26.2 H (3.8-10.6) k/uL RBC 3.46 L (3.80-5.40) m/uL Hgb 10.5 L (11.4-16.0) gm/dL Hct 32.6 L (34.0-46.0) % RDW 16.8 H (11.5-15.5) % Neutrophils # (1.3-7.7) k/uL Neutrophils # (Manual) 25.40 H (1.3-7.7) k/uL Lymphocytes # (1.0-4.8) k/uL Lymphocytes # (Manual) 0.52 L (1.0-4.8) k/uL Myelocytes # (Manual) 0.26 H (0) k/uL APTT 17.8 L (22.0-30.0) sec Carbon Dioxide (22-30) mmol/L BUN (7-17) mg/dL Creatinine (0.52-1.04) mg/dL Calcium (8.4-10.2) mg/dL Crossmatch See Detail 08/16/22 08/16/22 Range/Units 07:31 07:31 WBC 18.8 H (3.8-10.6) k/uL RBC 2.96 L (3.80-5.40) m/uL Hgb 9.2 L (11.4-16.0) gm/dL Hct 27.9 L (34.0-46.0) % RDW 17.0 H (11.5-15.5) % Neutrophils # 17.9 H (1.3-7.7) k/uL Neutrophils # (Manual) (1.3-7.7) k/uL Lymphocytes # 0.3 L (1.0-4.8) k/uL Lymphocytes # (Manual) (1.0-4.8) k/uL Myelocytes # (Manual) (0) k/uL APTT (22.0-30.0) sec Carbon Dioxide 41 H* (22-30) mmol/L BUN 30 H (7-17) mg/dL Creatinine 0.45 L (0.52-1.04) mg/dL Calcium 7.7 L (8.4-10.2) mg/dL Crossmatch Microbiology - Last 24 Hours (Table) 08/15/22 16:36 Gram Stain - Preliminary Groin Wound Culture - Preliminary 08/15/22 16:36 Anaerobic Culture - Preliminary Groin Assessment and Plan Assessment: 1. Pseudoaneurysm left femoral artery, hemorrhage, and left femoral patch peak status post vascular surgical repair with incisional vac placement 2. Acute on chronic anemia 3. COPD exacerbation 4. CHF exacerbation 5. Recent left lower extremity revascularization, with open wounds 6. Peripheral arterial disease 7. Atrial fibrillation on Xarelto, currently on hold 8. Bacteremia with pseudomonas aeruginosa, sputum culture positive for Pseudomonas aeruginosa 9. Bilateral lower lobe pneumonia Plan: 1. Keep prevena dressing in place for 7 days 2. Keep RAJESH drain in place 3. Daily CBC 4. Continue to hold Xarelto, may resume tomorrow 5. Continue local wound care 6. Continue medical management 7. Dysphagia groung diet (per patient request) 8. Please apply soft heel protector boots to bilateral feet Thank you for this consultation. We will continue to follow closely. The impression and plan of care has been dictated as directed. Dr. Horan I performed a history and examination of this patient, discussed the same with the dictator. I agree with the dictator's note ,documented as a scribe. Any additional findings or plans will be noted.
--- NOTE | 2022-08-16 12:09 | P.PN ---
Subjective Progress Note Date: 08/16/22 Principal diagnosis: Pseudomonas bacteremia Patient is a 67-year-old female with a past medical history significant for hypertension GERD atrial fibrillation peripheral arterial disease left breast cancer presenting to the ER for evaluation of increasing shortness of breath patient did have fever and elevated white count and recently did have a left lower extremity muscular procedure with open wound to the left medial thigh and left leg subsequently with evidence of pseudomonas bacteremia. Patient is status post left-sided thoracocentesis completed on 08/10/2022 with removal of 250 mL turbid fluid culture were negative patient also have a left lower extremity CT with evidence of large left femoral pseudoaneurysm and hematoma,Patient did have a left groin exploration for control of the left femoral artery hemorrhage controlled the left external iliac endarterectomy portion stent removal, open thrombectomy of the left femoral tibial vein bypass and profunda artery patch angioplasty antibiotic beads his pain with the procedure completed on 08/15/2022 On today's evaluation that is 08/16/2022, the patient denies having any fever or any chills, the patient is breathing comfortably on 2 L nasal cannula oxygen, patient denies having any chest pain , the patient continued to have a cough but not bringing up any sputum, The patient has been complaining of pain mostly to the left foot area Objective - Vital Signs Vital signs: Vital Signs Temp 97.5 F L 08/16/22 08:00 Pulse 68 08/16/22 08:07 Resp 16 08/16/22 08:00 BP 102/58 08/16/22 08:00 Pulse Ox 99 08/16/22 08:00 FiO2 Intake & Output 08/15/22 08/16/22 08/16/22 18:59 06:59 18:59 Intake Total 1117 100 Output Total 750 345 35 Balance 367 -245 -35 Intake: IV 552 Intake, IV Titration 100 Amount Piperacillin-Tazobactam 3 100 .375 gm In Sodium Chloride 0.9% 100 ml @ 25 mls/hr IVPB Q8H [facility] Rx#: [id number] Blood Product 565 Rc Pheresis 2 As3 Unit 281 [id number] Rc Pheresis 2 As3 Unit 284 [id number] Output: Drainage 35 35 Left Groin 35 35 Urine 100 310 Estimated Blood Loss 650 Other: Voiding Method External Catheter External Catheter External Catheter # Voids 0 - Exam GENERAL DESCRIPTION: An elderly female lying in bed in no distress RESPIRATORY SYSTEM: Unlabored breathing , decreased breath sounds at bases HEART: S1 S2 regular rate and rhythm , ABDOMEN: Soft , no tenderness EXTREMITIES: Left thigh wound wounds covered with a wound VAC left foot is warm and no open wound or any drainage - Labs CBC & Chem 7: 08/16/22 07:31 08/16/22 07:31 Labs: Abnormal Lab Results - Last 24 Hours (Table) 08/12/22 08/15/22 08/15/22 Range/Units 18:09 12:24 19:33 WBC 26.2 H (3.8-10.6) k/uL RBC 3.46 L (3.80-5.40) m/uL Hgb 10.5 L (11.4-16.0) gm/dL Hct 32.6 L (34.0-46.0) % RDW 16.8 H (11.5-15.5) % Neutrophils # (1.3-7.7) k/uL Neutrophils # (Manual) 25.40 H (1.3-7.7) k/uL Lymphocytes # (1.0-4.8) k/uL Lymphocytes # (Manual) 0.52 L (1.0-4.8) k/uL Myelocytes # (Manual) 0.26 H (0) k/uL APTT 17.8 L (22.0-30.0) sec Carbon Dioxide (22-30) mmol/L BUN (7-17) mg/dL Creatinine (0.52-1.04) mg/dL Calcium (8.4-10.2) mg/dL Crossmatch See Detail 08/16/22 08/16/22 Range/Units 07:31 07:31 WBC 18.8 H (3.8-10.6) k/uL RBC 2.96 L (3.80-5.40) m/uL Hgb 9.2 L (11.4-16.0) gm/dL Hct 27.9 L (34.0-46.0) % RDW 17.0 H (11.5-15.5) % Neutrophils # 17.9 H (1.3-7.7) k/uL Neutrophils # (Manual) (1.3-7.7) k/uL Lymphocytes # 0.3 L (1.0-4.8) k/uL Lymphocytes # (Manual) (1.0-4.8) k/uL Myelocytes # (Manual) (0) k/uL APTT (22.0-30.0) sec Carbon Dioxide 41 H* (22-30) mmol/L BUN 30 H (7-17) mg/dL Creatinine 0.45 L (0.52-1.04) mg/dL Calcium 7.7 L (8.4-10.2) mg/dL Crossmatch Microbiology - Last 24 Hours (Table) 08/15/22 16:36 Gram Stain - Preliminary Groin Wound Culture - Preliminary 08/15/22 16:36 Anaerobic Culture - Preliminary Groin Assessment and Plan (1) Bacteremia due to Pseudomonas Current Visit: Yes Status: Acute Code(s): R78.81 - BACTEREMIA; B96.5 - PSEUDOMONAS (MALLEI) CAUSING DISEASES [facility] Code(s): 2846460820 Plan: 1patient presented to hospital with sepsis in this patient who did a fever elevated white tachycardia and now with evidence of gram-negative bacteremia source questionably infected left lower extremity wound with a recent vascular procedure for PAD versus pneumonia however chest x-ray is most interstitial infiltrate although the patient did have elevated procalcitonin sputum cultures have been obtained which did grow pseudomonas aeruginosa 2-blood cultures repeat has been negative , pleural fluid cultures are so far negative 3-patient did have extensive surgery to the left groin and cultures has been taken and those will be followed patient to continue with the Zosyn likely will need IV antibiotics on discharge Time with Patient: Less than 30
--- NOTE | 2022-08-16 13:39 | P.PN ---
Subjective Progress Note Date: 08/16/22 Principal diagnosis: Acute hospital-acquired pseudomonal pneumonia and acute hypoxic respiratory failure 67-year-old female patient who presented to the hospital having fever and some worsening shortness of breath. The patient is known to have advanced COPD and she has undergone Joshua valve insertion regarding her advanced COPD and the patient has been maintained on a combination of Spiriva and Advair an outpatient basis. The patient is oxygen dependent. The patient does also use oxygen at 2 L per minute nasal cannula at baseline. Noted the patient was in the hospital approximately 3 weeks ago and the patient underwent a vascular/femoral endarterectomy on her left femoral artery for symptomatic claudication. At that time, I took care of this patient in the intensive care unit. The patient is also has severe peripheral vascular disease and she has undergone prior stenting to her bilateral common iliacs and external iliacs and subsequently she required the left femoral and left profunda endarterectomy and left femoral to tibial peroneal trunk bypass. Postop, she developed some swelling in lower extremity and she does have a 4.1 and in her upper thigh with some purulent drainage at the base. During this current hospital stay, the patient was found to be septic. Blood culture was positive for pseudomonas aeruginosa and the patient was seen by infectious disease and the patient was started on IV Zosyn. Meanwhile, the patient is having worsening shortness of breath, cough and congestion. She has excessively congestive cough. She is unable to bring up much of sputum. Her sputum sample has been collected and is showing some few gram-negative bacilli. Her initial white cell count was at 17.2 and dropped down to 14.7. Her pro calcitonin level was 8.0. The chest x-ray showing bilateral lower lobe pulmonary infiltrates and the patient also has a some mild thoracic kyphosis and anterior wedging of the lower was thoracic vertebral and order of 30%. On 08/09/2022, the patient is still complaining of shortness of breath. As mentioned, the patient advanced COPD. For now, sputum is growing gram-negative bacillus and the patient has blood cultures is positive for pseudomonas aeruginosa. The patient is on IV Zosyn. This is most likely bilateral pneumonia with secondary sepsis. At the same time, CAT scan of the chest was done that showed limited infiltration of the lung bases and small to moderate- sized bilateral pleural effusion the lung bases. There is extensive emphysema bilaterally. Meanwhile, the patient is still having a congested cough. Unable to bring up much of sputum. No fever. No chills. No other new complaints otherwise for now. On 08/10/2022, the patient's condition is essentially the same. Sputum sample was positive for pseudomonas aeruginosa. Blood culture was also positive for pseudomonas aeruginosa the patient is currently on IV Zosyn. The patient bilateral pleural effusion. Ultrasound marking of the chest was done and I performed a left-sided thoracentesis today and the patient able to 10% p neumothorax on the left. Total amount of fluid removed was around 250 mL. The patient remained hemodynamically stable. The patient reported improvement in her shortness of breath following the procedure. Nevertheless, she continues to have a congested cough. She is on Mucinex. Unable to bring up much of sputum. The WBC count is improving the white second of 11.6 with a hemoglobin of 9.8. B UN is at 25 with a creatinine of 0.5 and a sodium is at 140. On today's evaluation of 08/11/2022, the patient continues to have a congestive cough, unable to bring up much of sputum. She suffers from pseudomonal bilateral lower lobe pneumonia and bilateral pleural effusion. I performed a thoracentesis fluid on the left external to be transudate. She ended up having a temperature pneumothorax on the left. A repeat chest x-ray will be done today. Meanwhile, earlier this morning, the patient had an acute hemorrhage from her left groin. The surgical once from her previous vascular surgery the past. This wound was developed by vascular surgery. Pressure was applied and currently there is no evidence of any acute bleeding. She is weak. On her blood work, the WBC was 11.6 with a hemoglobin 9.8, BUN is 25 with a creatinine of 0.5 and a sodium level is 140 08/12/2022, slightly improved compared to yesterday, continued to have congestive cough. The repeat chest x-ray was done that showed persistent lower lobe pneumonia. The left-sided pneumothorax remains unchanged. The pleural fluid that was aspirated is a transudate. No other new complaints. No active bleeding from the surgical one-sided. No new labs from today. Remains on bronchodilators. Remains on IV Zosyn. Remains on prednisone. She is complaining of heartburn. She'll be given Protonix in addition to Tums for her ongoing active symptoms of heartburn. On today's evaluation of 08/13/2022, respiratory status is slightly improved and the patient's cough and congestion is gradually improving. Her cough is better. She remains on oxygen by nasal cannula. She remains on IV Zosyn. She remains on bronchodilators, Spiriva, prednisone patient is also on oral Lasix 20 mg by mouth twice a day. She is complaining of heartburn and the patient remains on accommodation of Protonix and Tums. She did have another episode of bleeding from her left groin incision and she currently has a pressure dressing applied. Vascular surgeries on the case and they're informed. No evidence of any hematoma. Hemoglobin is at 9.0 which is essentially stable. Patient was seen today on 08/14/2022, doing well from the pulmonary perspective, feeling much better, breathing easier, however she is experiencing bleeding from her left groin which is being addressed now by vascular surgery. Patient had recent the left lower extremity revascularization and a draining hematoma of the left inguinal area with no evidence of pseudoaneurysm. Continues to have a pressure dressing in the left groin, and again this is being addressed by vascular surgery on the case. Labs today showed WBC count of 10.3 hemoglobin is 9.1, elective lites are normal bicarb is 43 renal profile is normal. Ultrasound of the left groin done recently showed a fluid collection [id number] hypoechoic area, consistent with hematoma there was no evidence of pseudoaneurysm. Last chest x-ray from 08/11 showed evidence of minimal left-sided pneumothorax and trace of pleural effusions. Pleural effusion cytology showed no evidence of malignancy. Reevaluated today on 08/15/2022, patient is continuing to do well from the pulmonary perspective, however her CT angiogram of the left femoral artery showed evidence of pseudoaneurysm, hematoma, and the patient is now being evaluated for possible surgery for her large pseudoaneurysm of the femoral artery and hematoma in the left groin. Her iliac artery bypass graft appeared patent. Patient will receive a unit of packed RBCs prior to her surgery, and the surgery scheduled sometime later this afternoon, and Xarelto remains on hold. Reevaluated today on 08/16/2022, patient underwent surgery by vascular surgery, and she had repair of a pseudoaneurysm of the left femoral artery and evacuation of hematoma. She had a RAJESH in place draining some serosanguineous drainage. Pulmonary-shearer patient is doing well, not much of any illness symptoms except occasional cough, advised to be more compliant with her incentive spirometry at bedside. WBC count is 18.8 hemoglobin is 9.2. Basic metabolic profile is normal except bicarb of 41 with normal renal profile. Last chest x-ray was from 08/11/2022. Will likely recommend repeat chest x-ray to be done in the next 24 hours. Objective - Vital Signs Vital signs: Vital Signs Temp 97.6 F 08/16/22 12:00 Pulse 63 08/16/22 13:13 Resp 16 08/16/22 13:13 BP 104/60 08/16/22 12:00 Pulse Ox 99 08/16/22 12:00 FiO2 Intake & Output 08/15/22 08/16/22 08/16/22 18:59 06:59 18:59 Intake Total 1117 100 Output Total 750 345 35 Balance 367 -245 -35 Intake: IV 552 Intake, IV Titration 100 Amount Piperacillin-Tazobactam 3 100 .375 gm In Sodium Chloride 0.9% 100 ml @ 25 mls/hr IVPB Q8H [facility] Rx#: [id number] Blood Product 565 Rc Pheresis 2 As3 Unit 281 [id number] Rc Pheresis 2 As3 Unit 284 [id number] Output: Drainage 35 35 Left Groin 35 35 Urine 100 310 Estimated Blood Loss 650 Other: Voiding Method External Catheter External Catheter External Catheter # Voids 0 - Exam Physical Exam: Revealed a 67-year-old female in no distress, on room air. Head: Atraumatic, normocephalic. HEENT:[Neck is supple.] [No neck masses.] [No thyromegaly.] [No JVD.] Chest: [Diminished breath sounds at the bases no crackles or rhonchi or wheezes Cardiac Exam: [Normal S1 and S2, no S3 gallop, no murmur.] Abdomen: [Soft, nontender, no megaly, no rebound, no guarding, normal bowel sounds.] Extremities:Left groin with Prevena dressing in place with good suction, RAJESH drain with approximately 30 miles serosanguineous drainage. Left lower extremity dressing clean dry and intact. Doppler signal left PT and DP. Sensorimotor intact.. Neurological Exam: [No focal neurologic deficit.] Alert and oriented 3. Psychiatric: Normal mood affect and normal mental status examination. Skin: No rashes. - Labs CBC & Chem 7: 08/16/22 07:31 08/16/22 07:31 Labs: Abnormal Lab Results - Last 24 Hours (Table) 08/12/22 08/15/22 08/16/22 Range/Units 18:09 19:33 07:31 WBC 26.2 H 18.8 H (3.8-10.6) k/uL RBC 3.46 L 2.96 L (3.80-5.40) m/uL Hgb 10.5 L 9.2 L (11.4-16.0) gm/dL Hct 32.6 L 27.9 L (34.0-46.0) % RDW 16.8 H 17.0 H (11.5-15.5) % Neutrophils # 17.9 H (1.3-7.7) k/uL Neutrophils # (Manual) 25.40 H (1.3-7.7) k/uL Lymphocytes # 0.3 L (1.0-4.8) k/uL Lymphocytes # (Manual) 0.52 L (1.0-4.8) k/uL Myelocytes # (Manual) 0.26 H (0) k/uL Carbon Dioxide (22-30) mmol/L BUN (7-17) mg/dL Creatinine (0.52-1.04) mg/dL Calcium (8.4-10.2) mg/dL Crossmatch See Detail 08/16/22 Range/Units 07:31 WBC (3.8-10.6) k/uL RBC (3.80-5.40) m/uL Hgb (11.4-16.0) gm/dL Hct (34.0-46.0) % RDW (11.5-15.5) % Neutrophils # (1.3-7.7) k/uL Neutrophils # (Manual) (1.3-7.7) k/uL Lymphocytes # (1.0-4.8) k/uL Lymphocytes # (Manual) (1.0-4.8) k/uL Myelocytes # (Manual) (0) k/uL Carbon Dioxide 41 H* (22-30) mmol/L BUN 30 H (7-17) mg/dL Creatinine 0.45 L (0.52-1.04) mg/dL Calcium 7.7 L (8.4-10.2) mg/dL Crossmatch Microbiology - Last 24 Hours (Table) 08/15/22 16:36 Gram Stain - Preliminary Groin Wound Culture - Preliminary 08/15/22 16:36 Anaerobic Culture - Preliminary Groin Assessment and Plan Assessment: Impression: Pseudoaneurysm of left femoral artery and left groin hematoma. Status post surgery and repair of pseudoaneurysm 08/15/2022, postoperative day #1 Acute on chronic hypoxic respiratory failure secondary to underlying COPD and bilateral pleural effusions and a iatrogenic pneumothorax and acute pseudomonal pneumonia, Bilateral pleural effusions Acute sepsis secondary to pseudomonas aeruginosa pneumonia History of advanced COPD and previous insertion of zephyr valve Multifocal atrial tachycardia Acute diastolic congestive heart failure, patient has preserved LV function Severe peripheral vessel occlusive disease and previous vascular intervention History of breast cancer History of Sjogren syndrome Dyslipidemia Chronic steroid dependence Recommendation: Continue present supportive care measures Continue bronchodilators continue antibiotics/Zosyn, being followed by infectious disease. Continue bronchodilators Continue prednisone Continue to hold Xarelto Continue GI prophylaxis We will continue to follow Time with Patient: Less than 30
[2022-08-16] MEDS: ATORVASTATIN 80 MG TAB PO SCH (21:03)
--- NOTE | 2022-08-16 23:22 | P.PN ---
Subjective Progress Note Date: 08/15/22 67-year-old female patient; past medical history significant for lower extremities peripheral arterial disease as well as severe COPD and chronic hypoxic respiratory failure on oxygen and also hypertension and dyslipidemia and history of multifocal atrial tachycardia, presented to the hospital complaining of shortness of breath. The patient does have a baseline shortness of breath and she is on oxygen continuously at 2 L. For the last few days she has been experiencing increasing in the shortness of breath associated according to her and her with fever and cough productive of whitish sputum. Beside that she developed bilateral lower extremities edema. No symptoms of any chest pain or chest discomfort or dizziness or lightheadedness but she has been experiencing symptoms of heart racing and fluttering was no presyncope or syncope. The patient and her called ambulance and the patient was brought to the emergency department for further evaluation. During this admission she underwent a workup including an EKG showing what it seems to be multifocal atrial tachycardia with differential diagnosis of atrial fibrillation and also she underwent cardiac enzymes showed mildly abnormal troponin. The chest x-ray showed findings consistent with CHF. The rest of the blood work came in to be unremarkable. On examination she was in mild respiratory distress. She was also coughing during the examination. She does have bilateral expiratory wheezing and mild bilateral lower except his edema. Reviewing the vital signs revealed marginally low blood pressure with systolic pressure in the 90s. Currently she is on Cardizem IV and she is also on Lasix IV. 08/07/2022 This is a pleasant 67 years old female with multiple medical problems who was admitted initially because of dyspnea found to have acute CHF exacerbation and also she has evidence of bilateral pneumonia, she had a fever of 101.3 on admission. She still feels generally weak and tired, mildly tachypneic. Been followed by cardiology and infectious disease dating with positive blood culture for pseudomonas. And covered with abdomen Lasix 20 mg, IV Zosyn. Also she has history of COPD with chronic hypoxic respiratory failure on 2 L of oxygen at home, currently she is using before liters per minute. She has some evidence of diminished air entry in both sides under going to start prednisone 40 mg daily. She is on home dose of 0.5 mg twice a day for paroxysmal atrial fibrillation. Also she is on aspirin 325 mg. also patient follow up with Dr. Curran reported recent revascularizations surgery for his left lower extremity vascular disease, she still Dr. Curran last week and was doing well, she supposed to see him today so he was consulted 08/08/2022 Patient awake and alert, she still have little short of breath and tachypnea, however she feels better. Her cough feels better bleeding looks the same, she still have exertional dyspnea with walking. She still feels generally weak. States to have limited air entry on both lung sewell, no more fever and vitals are stable. Her abdomen Lasix switched to oral pills. Lead Recreation Assistant on the case and she was kept on Xarelto and metoprolol and Cardizem for her A. fib, Patient also have evidence with pseudomonas bacteremia, source could be pneumo gisella versus left lower extremity wound, culture is been followed closely. Patient is covered with Zosyn. Infectious disease team on the case. 08/09/2022 Patient states that her leg feels better today, she still complaining of from shortness of breath although she has this wheezing and better air entry limitations to there. Also ultrasound showing bilateral pleural effusion. Vitals are stable. Patient remains on Zosyn, prednisone 40 mg and oral Lasix 20 mg twice daily. 08/10/2022 Patient is still improving slowly and gradually regarding her pneumonia, she sent in bed most of the time, she has recovered is improving with Robitussin-DM which is continued. Chest x-ray from today show significant improvement compared to a few days ago. She underwent a thoracocentesis with 250 mL of turbid fluid removed. Sputum culture is growing Pseudomonas same as blood culture, patient is currently co ilana with Zosyn. Also she is on a prednisone 40 mg for her possible COPD element. Cardiology team already signed off with recommendation to follow up with Dr. Stewart as an outpatient. 08/11/2022 Patient today awake alert, she still feels short of breath although reports some improvement, she has weak cough and difficult to bring in her phlegm up. Also she's been complaining from bleeding from her left groin area. A sputum culture blood culture both grown Pseudomonas, she underwent thoracocentesis and cytology is pending, she did have some pneumothorax, pulmonary team on the case, her breathing is a stable and actually is improving. Vascular surgery on the case and 0 to was put on hold because of bleeding from the surgical site of her left leg. She kept on prednisone 40 mg as per a burst taper as well as Zosyn. Surgical consult is on the case Patient remains critical. 08/12/2021 Patient had actually looks much better today compared to yesterday, she is more relaxed and pleasant she still have some dyspnea, her coughing is stronger than yesterday as well. She still hemodynamically stable. Oxygenation is improving. Yesterday she had bleeding from her left groin wound related to vascular surgery, no more bleeding today. Result is on hold. Patient remains on Zosyn Cytology is still pending 08/13/2022 Patient is improving slowly and gradually, her dyspnea significantly improved o stephy the last 2 days, although no much difference between yesterday and today. Her cough is better as well. Also bleeding on her left groin has stopped, though remains on hold. Vascular surgery on the case. She remains on Zosyn and Protonix, also has a prednisone 40 mg burst taper. Also on oral Lasix 20 mg twice daily. 08/14/2022 Patient is currently resting in bed. Awake alert and oriented x3. Breathing status is better. Currently requiring 2 L oxygen via nasal cannula. On treatment for Pseudomonas pneumonia and Pseudomonas bacteremia with Zosyn. Otherwise patient was noticed to have bleeding from the left groin and had a recent left elective revascularization. CT of the lower extremity was done which showed there is evidence of large pseudoaneurysm of the femoral artery in the left groin. There is a large hematoma in the left groin. Subcutaneous edema lateral to the left hip. Appears to be significant occlusive disease in the left femoral artery and collateral flow with reconstituted tibial arteries below the knee. The iliac artery bypass graft which appears patent. Laboratory data showed WBC 11.8 hemoglobin 8.4 and platelets 271 Sodium 142 potassium 4.0 chloride 97 bicarb is 43 BUN 25 and creatinine 0.36 and blood sugar is 119. Pulmonary, ID and vascular surgery is on board. Pleural fluid cytology on 08/10/2022 showed reactive mesothelial cells., Macrophages and mixed inflammatory cells. No cytologically malignant cells identified. 08/15/2022 Patient is currently resting in bed. Awake alert and oriented x3. Requiring 2 L oxygen via nasal cannula. Breathing status is much improved. Patient is scheduled for Large pseudoaneurysm of the femoral artery and hematoma in the left groin. Vascular surgery and pulmonary is on board. Patient is getting 1 unit of PRBC prior to surgery. Anticoagulation is on hold. Laboratory data showed WBC 11.8 hemoglobin 8.4 and platelets 271 Sodium 142 potassium 4.0 chloride 97 bicarb is 43 BUN 25 creatinine 0.36 and blood sugar is 119. Patient is on antibiotics in the form of Zosyn. ID is on board. Current medications reviewed. Objective - Vital Signs Vital signs: Vital Signs Temp 97.6 F 08/15/22 18:03 Pulse 72 08/15/22 18:45 Resp 16 08/15/22 18:30 BP 113/51 08/15/22 18:45 Pulse Ox 100 08/15/22 18:30 FiO2 Intake & Output 08/15/22 08/15/22 08/16/22 06:59 18:59 06:59 Intake Total 250 1117 Output Total 300 750 Balance -50 367 Intake: IV 552 Intake, IV Titration 250 Amount Sodium Chloride 0.9% 1, 250 000 ml @ 20 mls/hr IV . Q24H [facility] Rx#:[id number] Blood Product 565 Rc Pheresis 2 As3 Unit 281 [id number] Rc Pheresis 2 As3 Unit 284 [id number] Output: Urine 300 100 Estimated Blood Loss 650 Other: Voiding Method External Catheter External Catheter # Voids 0 # Bowel Movements 0 - Exam - Exam -GENERAL: The patient is alert and oriented x3, not in any acute distress. Well developed, well nourished. Generally weak HEENT: Pupils are round and equally reacting to light. EOMI. No scleral icterus. No conjunctival pallor. Normocephalic, atraumatic. No pharyngeal erythema. No thyromegaly. CARDIOVASCULAR: S1 and S2 present. No murmurs, rubs, or gallops. -PULMONARY: Chest is clear to auscultation, no wheezing or crackles. Decreased air entry on both sides ABDOMEN: Soft, nontender, nondistended, normoactive bowel sounds. No palpable organomegaly. Left groin pressure bandage in place. MUSCULOSKELETAL: No joint swelling or deformity. -EXTREMITIES: No cyanosis, clubbing, or pedal edema. Open wound on the left leg NEUROLOGICAL: Gross neurological examination did not reveal any focal deficits. SKIN: No rashes. no petechiae. - Labs CBC & Chem 7: 08/16/22 07:31 08/16/22 07:31 Labs: Abnormal Lab Results - Last 24 Hours (Table) 08/12/22 08/15/22 08/15/22 Range/Units 18:09 06:34 06:34 WBC 11.8 H (3.8-10.6) k/uL RBC 2.70 L (3.80-5.40) m/uL Hgb 8.4 L (11.4-16.0) gm/dL Hct 26.4 L (34.0-46.0) % RDW 16.9 H (11.5-15.5) % Neutrophils # 11.0 H (1.3-7.7) k/uL Neutrophils # (Manual) (1.3-7.7) k/uL Lymphocytes # 0.3 L (1.0-4.8) k/uL Lymphocytes # (Manual) (1.0-4.8) k/uL Myelocytes # (Manual) (0) k/uL APTT (22.0-30.0) sec Chloride 97 L (98-107) mmol/L Carbon Dioxide 43 H* (22-30) mmol/L BUN 25 H (7-17) mg/dL Creatinine 0.36 L (0.52-1.04) mg/dL Glucose 119 H (74-99) mg/dL Crossmatch See Detail 08/15/22 08/15/22 Range/Units 12:24 19:33 WBC 26.2 H (3.8-10.6) k/uL RBC 3.46 L (3.80-5.40) m/uL Hgb 10.5 L (11.4-16.0) gm/dL Hct 32.6 L (34.0-46.0) % RDW 16.8 H (11.5-15.5) % Neutrophils # (1.3-7.7) k/uL Neutrophils # (Manual) 25.40 H (1.3-7.7) k/uL Lymphocytes # (1.0-4.8) k/uL Lymphocytes # (Manual) 0.52 L (1.0-4.8) k/uL Myelocytes # (Manual) 0.26 H (0) k/uL APTT 17.8 L (22.0-30.0) sec Chloride (98-107) mmol/L Carbon Dioxide (22-30) mmol/L BUN (7-17) mg/dL Creatinine (0.52-1.04) mg/dL Glucose (74-99) mg/dL Crossmatch Assessment and Plan Assessment: -Bilateral pneumonia secondary to pseudomonas. Status post left thoracocentesis with 50 mL of turbid fluid removed on 08/10. Fluid cytology showed no malignant cells. -Pseudomonas bacteremia -Large left groin pseudoaneurysm with recent history of left lower extremity revascularization. -Pseudoaneurysm left femoral artery, left groin hematoma -Mild acute blood loss anemia -Acute CHF exacerbation -Paroxysmal atrial fibrillation's with elevated troponin -Acute COPD exacerbation -Moderate left pneumothorax -Acute on chronic hypoxic respiratory failure -Cyanosis present on admission with fever and leukocytosis -Peripheral vascular disease status post recent revascularization of the left lower extremity with open wound, with bleeding from one side and hematoma of the left groin Plan: Patient is scheduled for repair of pseudoaneurysm. Continue with Zosyn Xeralto (on hold during to bleeding) Continue with prednisone burst taper and breathing treatment Continue with oral Lasix, pulmonary, vascular surgeon and infectious disease consult DVT prophylaxis: Xeralto (on hold) c/w mechanical GI Prophylaxis: Ppi PT/OT: Pending Prognosis is guarded Time with Patient: Greater than 30
--- NOTE | 2022-08-16 23:25 | P.PN ---
Subjective Progress Note Date: 08/16/22 67-year-old female patient; past medical history significant for lower extremities peripheral arterial disease as well as severe COPD and chronic hypoxic respiratory failure on oxygen and also hypertension and dyslipidemia and history of multifocal atrial tachycardia, presented to the hospital complaining of shortness of breath. The patient does have a baseline shortness of breath and she is on oxygen continuously at 2 L. For the last few days she has been experiencing increasing in the shortness of breath associated according to her and her with fever and cough productive of whitish sputum. Beside that she developed bilateral lower extremities edema. No symptoms of any chest pain or chest discomfort or dizziness or lightheadedness but she has been experiencing symptoms of heart racing and fluttering was no presyncope or syncope. The patient and her called ambulance and the patient was brought to the emergency department for further evaluation. During this admission she underwent a workup including an EKG showing what it seems to be multifocal atrial tachycardia with differential diagnosis of atrial fibrillation and also she underwent cardiac enzymes showed mildly abnormal troponin. The chest x-ray showed findings consistent with CHF. The rest of the blood work came in to be unremarkable. On examination she was in mild respiratory distress. She was also coughing during the examination. She does have bilateral expiratory wheezing and mild bilateral lower except his edema. Reviewing the vital signs revealed marginally low blood pressure with systolic pressure in the 90s. Currently she is on Cardizem IV and she is also on Lasix IV. 08/07/2022 This is a pleasant 67 years old female with multiple medical problems who was admitted initially because of dyspnea found to have acute CHF exacerbation and also she has evidence of bilateral pneumonia, she had a fever of 101.3 on admission. She still feels generally weak and tired, mildly tachypneic. Been followed by cardiology and infectious disease dating with positive blood culture for pseudomonas. And covered with abdomen Lasix 20 mg, IV Zosyn. Also she has history of COPD with chronic hypoxic respiratory failure on 2 L of oxygen at home, currently she is using before liters per minute. She has some evidence of diminished air entry in both sides under going to start prednisone 40 mg daily. She is on home dose of 0.5 mg twice a day for paroxysmal atrial fibrillation. Also she is on aspirin 325 mg. also patient follow up with Dr. Curran reported recent revascularizations surgery for his left lower extremity vascular disease, she still Dr. Curran last week and was doing well, she supposed to see him today so he was consulted 08/08/2022 Patient awake and alert, she still have little short of breath and tachypnea, however she feels better. Her cough feels better bleeding looks the same, she still have exertional dyspnea with walking. She still feels generally weak. States to have limited air entry on both lung sewell, no more fever and vitals are stable. Her abdomen Lasix switched to oral pills. Business Programmer on the case and she was kept on Xarelto and metoprolol and Cardizem for her A. fib, Patient also have evidence with pseudomonas bacteremia, source could be pneumo gisella versus left lower extremity wound, culture is been followed closely. Patient is covered with Zosyn. Infectious disease team on the case. 08/09/2022 Patient states that her leg feels better today, she still complaining of from shortness of breath although she has this wheezing and better air entry limitations to there. Also ultrasound showing bilateral pleural effusion. Vitals are stable. Patient remains on Zosyn, prednisone 40 mg and oral Lasix 20 mg twice daily. 08/10/2022 Patient is still improving slowly and gradually regarding her pneumonia, she sent in bed most of the time, she has recovered is improving with Robitussin-DM which is continued. Chest x-ray from today show significant improvement compared to a few days ago. She underwent a thoracocentesis with 250 mL of turbid fluid removed. Sputum culture is growing Pseudomonas same as blood culture, patient is currently co ilana with Zosyn. Also she is on a prednisone 40 mg for her possible COPD element. Cardiology team already signed off with recommendation to follow up with Dr. Stewart as an outpatient. 08/11/2022 Patient today awake alert, she still feels short of breath although reports some improvement, she has weak cough and difficult to bring in her phlegm up. Also she's been complaining from bleeding from her left groin area. A sputum culture blood culture both grown Pseudomonas, she underwent thoracocentesis and cytology is pending, she did have some pneumothorax, pulmonary team on the case, her breathing is a stable and actually is improving. Vascular surgery on the case and 0 to was put on hold because of bleeding from the surgical site of her left leg. She kept on prednisone 40 mg as per a burst taper as well as Zosyn. Surgical consult is on the case Patient remains critical. 08/12/2021 Patient had actually looks much better today compared to yesterday, she is more relaxed and pleasant she still have some dyspnea, her coughing is stronger than yesterday as well. She still hemodynamically stable. Oxygenation is improving. Yesterday she had bleeding from her left groin wound related to vascular surgery, no more bleeding today. Result is on hold. Patient remains on Zosyn Cytology is still pending 08/13/2022 Patient is improving slowly and gradually, her dyspnea significantly improved o stephy the last 2 days, although no much difference between yesterday and today. Her cough is better as well. Also bleeding on her left groin has stopped, though remains on hold. Vascular surgery on the case. She remains on Zosyn and Protonix, also has a prednisone 40 mg burst taper. Also on oral Lasix 20 mg twice daily. 08/14/2022 Patient is currently resting in bed. Awake alert and oriented x3. Breathing status is better. Currently requiring 2 L oxygen via nasal cannula. On treatment for Pseudomonas pneumonia and Pseudomonas bacteremia with Zosyn. Otherwise patient was noticed to have bleeding from the left groin and had a recent left elective revascularization. CT of the lower extremity was done which showed there is evidence of large pseudoaneurysm of the femoral artery in the left groin. There is a large hematoma in the left groin. Subcutaneous edema lateral to the left hip. Appears to be significant occlusive disease in the left femoral artery and collateral flow with reconstituted tibial arteries below the knee. The iliac artery bypass graft which appears patent. Laboratory data showed WBC 11.8 hemoglobin 8.4 and platelets 271 Sodium 142 potassium 4.0 chloride 97 bicarb is 43 BUN 25 and creatinine 0.36 and blood sugar is 119. Pulmonary, ID and vascular surgery is on board. Pleural fluid cytology on 08/10/2022 showed reactive mesothelial cells., Macrophages and mixed inflammatory cells. No cytologically malignant cells identified. 08/15/2022 Patient is currently resting in bed. Awake alert and oriented x3. Requiring 2 L oxygen via nasal cannula. Breathing status is much improved. Patient is scheduled for Large pseudoaneurysm of the femoral artery and hematoma in the left groin. Vascular surgery and pulmonary is on board. Patient is getting 1 unit of PRBC prior to surgery. Anticoagulation is on hold. Laboratory data showed WBC 11.8 hemoglobin 8.4 and platelets 271 Sodium 142 potassium 4.0 chloride 97 bicarb is 43 BUN 25 creatinine 0.36 and blood sugar is 119. Patient is on antibiotics in the form of Zosyn. ID is on board. 08/16/2022 Patient is currently resting in bed. Awake alert and oriented x3. Requiring 2 L oxygen via nasal cannula. Remains on antibiotics of Zosyn. Otherwise patient underwent repair of pseudoaneurysm of the left femoral artery and evacuation of hematoma. RAJESH drain is in place with serosanguineous discharge. No complaints of fever or chills. No nausea vomiting abdominal pain or diarrhea. Laboratory data showed WBC 18.8 hemoglobin 9.2 and platelets 185 sodium 139 potassium 3.9 chloride 99 bicarb is 41 BUN 30 and creatinine 0.45 Vascular surgery, pulmonary and ID is on board. Current medications reviewed. Objective - Vital Signs Vital signs: Vital Signs Temp 97.3 F L 08/16/22 20:00 Pulse 69 08/16/22 21:26 Resp 20 08/16/22 20:00 BP 119/53 08/16/22 20:00 Pulse Ox 98 08/16/22 20:00 FiO2 Intake & Output 08/16/22 08/16/22 08/17/22 06:59 18:59 06:59 Intake Total 100 Output Total 345 235 Balance -245 -235 Intake: Intake, IV Titration 100 Amount Piperacillin-Tazobactam 3 100 .375 gm In Sodium Chloride 0.9% 100 ml @ 25 mls/hr IVPB Q8H [facility] Rx#: [id number] Output: Drainage 35 35 Left Groin 35 35 Urine 310 200 Other: Voiding Method Indwelling Catheter External Catheter Indwelling Catheter - Exam - Exam -GENERAL: The patient is alert and oriented x3, not in any acute distress. Well developed, well nourished. Generally weak HEENT: Pupils are round and equally reacting to light. EOMI. No scleral icterus. No conjunctival pallor. Normocephalic, atraumatic. No pharyngeal erythema. No thyromegaly. CARDIOVASCULAR: S1 and S2 present. No murmurs, rubs, or gallops. -PULMONARY: Chest is clear to auscultation, no wheezing or crackles. Decreased air entry on both sides ABDOMEN: Soft, nontender, nondistended, normoactive bowel sounds. No palpable organomegaly. Left groin surgical site with RAJESH drain in place. Left groin pressure bandage in place. MUSCULOSKELETAL: No joint swelling or deformity. -EXTREMITIES: No cyanosis, clubbing, or pedal edema. NEUROLOGICAL: Gross neurological examination did not reveal any focal deficits. SKIN: No rashes. no petechiae. - Labs CBC & Chem 7: 08/16/22 07:31 08/16/22 07:31 Labs: Abnormal Lab Results - Last 24 Hours (Table) 08/16/22 08/16/22 Range/Units 07:31 07:31 WBC 18.8 H (3.8-10.6) k/uL RBC 2.96 L (3.80-5.40) m/uL Hgb 9.2 L (11.4-16.0) gm/dL Hct 27.9 L (34.0-46.0) % RDW 17.0 H (11.5-15.5) % Neutrophils # 17.9 H (1.3-7.7) k/uL Lymphocytes # 0.3 L (1.0-4.8) k/uL Carbon Dioxide 41 H* (22-30) mmol/L BUN 30 H (7-17) mg/dL Creatinine 0.45 L (0.52-1.04) mg/dL Calcium 7.7 L (8.4-10.2) mg/dL Microbiology - Last 24 Hours (Table) 08/15/22 16:36 Gram Stain - Preliminary Groin Wound Culture - Preliminary 08/15/22 16:36 Anaerobic Culture - Preliminary Groin Assessment and Plan Assessment: -Bilateral pneumonia secondary to pseudomonas. Status post left thoracocentesis with 50 mL of turbid fluid removed on 08/10. Fluid cytology showed no malignant cells. -Pseudomonas bacteremia -Large left groin pseudoaneurysm with recent history of left lower extremity revascularization. -Pseudoaneurysm left femoral artery, left groin hematoma. S/p repair and evacuation of hematoma on 08/15/2022. -Mild acute blood loss anemia -Acute CHF exacerbation -Paroxysmal atrial fibrillation's with elevated troponin -Acute COPD exacerbation -Moderate left pneumothorax -Acute on chronic hypoxic respiratory failure -Cyanosis present on admission with fever and leukocytosis -Peripheral vascular disease status post recent revascularization of the left lower extremity with open wound, with bleeding from one side and hematoma of the left groin Plan: S/p repair of Pseudoaneurysm and evacuation of hematoma on 08/15/2022. Continue with Zosyn Xeralto (on hold during to bleeding) Continue with prednisone burst taper and breathing treatment Continue with oral Lasix, pulmonary, vascular surgeon and infectious disease consult DVT prophylaxis: Xeralto (on hold) c/w mechanical GI Prophylaxis: Ppi PT/OT: Pending Prognosis is guarded Time with Patient: Greater than 30
[2022-08-17] MEDS: HYDROmorphone 0.5 MG/0.5 ML SYRINGE IVP PRN ×2 (03:57→22:31)
[2022-08-17] MEDS: PIPERACILLIN-TAZOBACTAM 3.375 GM in SODIUM CHLORIDE 0.9% 100 ML IVPB SCH ×3 (06:21→21:10)
[2022-08-17] MEDS: PANTOPRAZOLE 40 MG TABLET PO SCH ×2 (06:22→17:10)
[2022-08-17] MEDS: SODIUM CHLORIDE 0.9% 1,000 ML IV SCH (06:22)
[2022-08-17] MEDS: predniSONE 20 MG TAB PO SCH (07:54)
[2022-08-17] MEDS: GABAPENTIN 300 MG CAP PO SCH ×3 (07:54→21:09)
[2022-08-17] MEDS: DILTIAZEM ORAL 30 MG TAB PO SCH ×3 (07:55→21:09)
[2022-08-17] MEDS: FUROSEMIDE 20 MG TAB PO SCH ×2 (07:55→15:11)
[2022-08-17] MEDS: HYDROXYCHLOROQUINE SULFATE 200 MG TAB PO SCH ×2 (07:55→21:09)
[2022-08-17] MEDS: CHOLECALCIFEROL 25 MCG (1000 IU) TABLET PO SCH (07:55)
[2022-08-17] MEDS: DOCUSATE 100 MG CAP PO SCH (07:55)
[2022-08-17] MEDS: LETROZOLE 2.5 MG TAB PO SCH (07:56)
[2022-08-17] MEDS: METOPROLOL TARTRATE 25 MG TAB PO SCH ×2 (07:56→21:09)
[2022-08-17] MEDS: ASPIRIN 81 MG PO SCH (07:56)
[2022-08-17] MEDS: guaiFENesin-DM 600/30MG 1 EACH TAB.ER.12H PO SCH ×2 (07:57→21:09)
[2022-08-17] MEDS: COLLAGENASE 250 UNIT/GM OINTMENT 30 GM TUBE TOPICAL SCH (07:59)
[2022-08-17] MEDS: TIOTROPIUM 2.5 MCG INHALER INHALATION SCH (08:28)
[2022-08-17] MEDS: ALBUTEROL NEBULIZED 2.5 MG/3 ML INHALATION SCH ×3 (08:28→20:39)
[2022-08-17] MEDS: NON FORMULARY DRUG (Fluticasone Propion/Salmeterol [Advair 500-50 Diskus] 1 EACH Blst.W.De INHALATION SCH ×2 (08:29→20:39)
[2022-08-17] MEDS: HYDROcodone/APAP 5-325MG 1 EACH TAB PO PRN (09:33)
--- NOTE | 2022-08-17 09:48 | P.PN ---
Subjective Progress Note Date: 08/17/22 Principal diagnosis: Shortness of breath, left femoral artery pseudoaneurysm with bleed, left femoral patch leak Patient was seen and examined today as a follow-up. She states she continues to have pain in the left foot on the lateral side and ribs are grossly Of her foot. She states is well controlled with pain medication. She has good sensorimotor in her foot. No acute changes through the night. She's been afebrile. Left groin with prevena dressing in place with good suction, RAJESH drain with approximately 5-10 mL serosanguineous drainage. Patient had 40 mL output in the last 24 hours. Preliminary wound culture with gram-negative bacilli. Objective - Vital Signs Vital signs: Vital Signs Temp 97.7 F 08/17/22 07:35 Pulse 69 08/17/22 08:38 Resp 18 08/17/22 08:38 BP 106/46 08/17/22 07:35 Pulse Ox 100 08/17/22 08:29 FiO2 Intake & Output 08/16/22 08/17/22 08/17/22 18:59 06:59 18:59 Intake Total 338 Output Total 235 290 5 Balance -235 -290 333 Intake: Oral 338 Output: Drainage 35 40 5 Left Groin 35 40 5 Urine 200 250 Other: Voiding Method External Catheter Indwelling Catheter Indwelling Catheter - Exam General appearance: The patient is alert, oriented, appears in no acute distress. HET: Head is normocephalic and atraumatic. Pupils are equal and reactive. Neck: Supple without lymphadenopathy. Trachea midline. Extremities: Left groin with Prevena dressing in place with good suction, RAJESH drain with approximately 5-10 ml serosanguineous drainage. Left lower extremity dressing clean dry and intact, wound with minimal drainage, no foul odor. Palpable bypass graft. Doppler signal left PT and DP. Sensorimotor intact. Neurological: No focal deficits. - Labs CBC & Chem 7: 08/17/22 09:16 08/17/22 09:16 Labs: Microbiology - Last 24 Hours (Table) 08/15/22 16:36 Gram Stain - Preliminary Groin Wound Culture - Preliminary Gram Neg Bacilli Assessment and Plan Assessment: 1. Pseudoaneurysm left femoral artery, hemorrhage, and left femoral patch peak status post vascular surgical repair with incisional vac placement 2. Acute on chronic anemia 3. COPD exacerbation 4. CHF exacerbation 5. Recent left lower extremity revascularization, with open wounds 6. Peripheral arterial disease 7. Atrial fibrillation on Xarelto, currently on hold 8. Bacteremia with pseudomonas aeruginosa, sputum culture positive for Pseudomonas aeruginosa 9. Bilateral lower lobe pneumonia Plan: 1. Keep prevena dressing in place for 7 days 2. Keep RAJESH drain in place 3. Daily CBC 4. May resume Xarelto 5. Continue local wound care 6. Continue medical management 7. Dysphagia groung diet (per patient request) 8. Please apply soft heel protector boots to bilateral feet 9. Encourage increased mobility/ambulation with physical therapy. Also discussed with patient importance of range of motion in bed with bilateral lower extremities. Patient verbalized understanding. Thank you for this consultation. We will continue to follow closely. The impression and plan of care has been dictated as directed. Dr. Horan I performed a history and examination of this patient, discussed the same with the dictator. I agree with the dictator's note ,documented as a scribe. Any additional findings or plans will be noted.
[2022-08-17 10:14] LABS: Anisocytosis Slight; Basophils % (A) 0 %; Eosinophils # (A) 0.1 k/uL (0-0.7); Eosinophils % (A) 0 %; HCT 26.9 % (34.0-46.0); Hypochromasia Moderate; Lymphocytes # (A) 0.4 k/uL (1.0-4.8); Lymphocytes % (A) 2 %; MCH 31.8 pg (25.0-35.0); MCHC 33.4 g/dL (31.0-37.0); MCV 95.1 fL (80.0-100.0); Mean Platelet Volume 9.3; Monocytes # (A) 0.8 k/uL (0-1.0); Monocytes % (A) 4 %; Neutrophils # (A) 16.3 k/uL (1.3-7.7); Neutrophils % (A) 92 %; Platelet Count 132 k/uL (150-450); Poikilocytosis Moderate; RBC 2.83 m/uL (3.80-5.40); RDW 16.4 % (11.5-15.5); WBC 17.7 k/uL (3.8-10.6)
[2022-08-17 10:34] LABS: African American GFR (CKD) >90 (>60 ml/min/1.73 sqM); Blood Urea Nitrogen 35 mg/dL (7-17); Calcium 8.1 mg/dL (8.4-10.2); Chloride 96 mmol/L (98-107); Glucose 150 mg/dL (74-99); Non-African American GFR(CKD) >90 (>60 ml/min/1.73 sqM); Potassium 3.6 mmol/L (3.5-5.1); Sodium 140 mmol/L (137-145)
[2022-08-17 10:41] LABS: Anion Gap 2 mmol/L
[2022-08-17 10:53] LABS: Carbon Dioxide 42 mmol/L (22-30)
[2022-08-17] MEDS: RIVAROXABAN 2.5 MG TABLET PO SCH ×2 (11:38→21:09)
--- NOTE | 2022-08-17 12:01 | XR ---
EXAMINATION TYPE: XR chest 1V portable DATE OF EXAM: 08/17/2022 11:55 AM COMPARISON: Chest radiographs from 08/11/2022 TECHNIQUE: XR chest 1V portable Portable AP radiograph of the chest. CLINICAL INDICATION:Female, 67 years old with history of Shortness of breath; FINDINGS: Lungs/Pleura: There is flattening of the diaphragm with increased lucency of the lungs. No evidence o f pneumothorax, pleural effusion. Increased bibasilar airspace opacities. Pulmonary vascularity: Unremarkable. Heart/mediastinum: Cardiomediastinal silhouette is unremarkable. Musculoskeletal: No acute osseous pathology. IMPRESSION: 1. Bibasilar airspace opacities concerning for pneumonia. 2. COPD changes.
--- NOTE | 2022-08-17 13:59 | P.PN ---
Subjective Progress Note Date: 08/17/22 Principal diagnosis: Pseudomonas bacteremia Patient is a 67-year-old female with a past medical history significant for hypertension GERD atrial fibrillation peripheral arterial disease left breast cancer presenting to the ER for evaluation of increasing shortness of breath patient did have fever and elevated white count and recently did have a left lower extremity muscular procedure with open wound to the left medial thigh and left leg subsequently with evidence of pseudomonas bacteremia. Patient is status post left-sided thoracocentesis completed on 08/10/2022 with removal of 250 mL turbid fluid culture were negative patient also have a left lower extremity CT with evidence of large left femoral pseudoaneurysm and hematoma,Patient did have a left groin exploration for control of the left femoral artery hemorrhage controlled the left external iliac endarterectomy portion stent removal, open thrombectomy of the left femoral tibial vein bypass and profunda artery patch angioplasty antibiotic beads his pain with the procedure completed on 08/15/2022 On today's evaluation that is 08/17/2022, the patient remains to be, the patient is breathing comfortably on 3 L nasal cannula oxygen, patient denies having any chest pain , the patient denies any worsening cough or sputum production, The patient denies any worsening pain to the left leg today, no vomiting or diarrhea Objective - Vital Signs Vital signs: Vital Signs Temp 98.0 F 08/17/22 08:00 Pulse 69 08/17/22 08:38 Resp 18 08/17/22 08:38 BP 117/60 08/17/22 08:00 Pulse Ox 100 08/17/22 08:29 FiO2 Intake & Output 08/16/22 08/17/22 08/17/22 18:59 06:59 18:59 Intake Total 338 Output Total 235 290 5 Balance -235 -290 333 Intake: Oral 338 Output: Drainage 35 40 5 Left Groin 35 40 5 Urine 200 250 Other: Voiding Method External Catheter Indwelling Catheter Indwelling Catheter - Exam GENERAL DESCRIPTION: An elderly female lying in bed in no distress RESPIRATORY SYSTEM: Unlabored breathing , decreased breath sounds at bases HEART: S1 S2 regular rate and rhythm , ABDOMEN: Soft , no tenderness EXTREMITIES: Left thigh wound wounds covered with a wound VAC left foot is warm and no open wound or any drainage - Labs CBC & Chem 7: 08/17/22 09:16 08/17/22 09:16 Labs: Abnormal Lab Results - Last 24 Hours (Table) 08/17/22 08/17/22 Range/Units 09:16 09:16 WBC 17.7 H (3.8-10.6) k/uL RBC 2.83 L (3.80-5.40) m/uL Hgb 9.0 L (11.4-16.0) gm/dL Hct 26.9 L (34.0-46.0) % RDW 16.4 H (11.5-15.5) % Plt Count 132 L (150-450) k/uL Neutrophils # 16.3 H (1.3-7.7) k/uL Lymphocytes # 0.4 L (1.0-4.8) k/uL Chloride 96 L (98-107) mmol/L Carbon Dioxide 42 H* (22-30) mmol/L BUN 35 H (7-17) mg/dL Creatinine 0.50 L (0.52-1.04) mg/dL Glucose 150 H (74-99) mg/dL Calcium 8.1 L (8.4-10.2) mg/dL Microbiology - Last 24 Hours (Table) 08/15/22 16:36 Gram Stain - Preliminary Groin Wound Culture - Preliminary Gram Neg Bacilli Assessment and Plan (1) Bacteremia due to Pseudomonas Current Visit: Yes Status: Acute Code(s): R78.81 - BACTEREMIA; B96.5 - PSEUDOMONAS (MALLEI) [facility] Code[facility]s): 5119208015 Plan: 1patient presented to hospital with sepsis in this patient who did a fever elevated white tachycardia and now with evidence of gram-negative bacteremia source questionably infected left lower extremity wound with a recent vascular procedure for PAD versus pneumonia however chest x-ray is most interstitial infiltrate although the patient did have elevated procalcitonin sputum cultures have been obtained which did grow pseudomonas aeruginosa 2-blood cultures repeat has been negative , pleural fluid cultures are so far negative, 3-patient did have extensive surgery to the left groin and cultures has been taken which are growing gram-negative with the ID and sensitivities pending 4- patient to continue with the Zosyn and monitor clinical course closely Time with Patient: Less than 30
--- NOTE | 2022-08-17 14:01 | P.PN ---
Subjective Progress Note Date: 08/17/22 67-year-old female patient who presented to the hospital having fever and some worsening shortness of breath. The patient is known to have advanced COPD and she has undergone Stuart valve insertion regarding her advanced COPD and the patient has been maintained on a combination of Spiriva and Advair an outpatient basis. The patient is oxygen dependent. The patient does also use oxygen at 2 L per minute nasal cannula at baseline. Noted the patient was in the hospital approximately 3 weeks ago and the patient underwent a vascular/femoral endarterectomy on her left femoral artery for symptomatic claudication. At that time, I took care of this patient in the intensive care unit. The patient is a lso has severe peripheral vascular disease and she has undergone prior stenting to her bilateral common iliacs and external iliacs and subsequently she required the left femoral and left profunda endarterectomy and left femoral to tibial peroneal trunk bypass. Postop, she developed some swelling in lower extremity and she does have a 4.1 and in her upper thigh with some purulent drainage at the base. During this current hospital stay, the patient was found to be septic. Blood culture was positive for pseudomonas aeruginosa and the patient was seen by infectious disease and the patient was started on IV Zosyn. Meanwhile, the patient is having worsening shortness of breath, cough and conge stion. She has excessively congestive cough. She is unable to bring up much of sputum. Her sputum sample has been collected and is showing some few gram- negative bacilli. Her initial white cell count was at 17.2 and dropped down to 14.7. Her pro calcitonin level was 8.0. The chest x-ray showing bilateral lower lobe pulmonary infiltrates and the patient also has a some mild thoracic kyphosis and anterior wedging of the lower was thoracic vertebral and order of 30%. On 08/09/2022, the patient is still complaining of shortness of breath. As mentioned, the patient advanced COPD. For now, sputum is growing gram-negative bacillus and the patient has blood cultures is positive for pseudomonas aeruginosa. The patient is on IV Zosyn. This is most likely bilateral pneumonia with secondary sepsis. At the same time, CAT scan of the chest was done that showed limited infiltration of the lung bases and small to moderate- sized bilateral pleural effusion the lung bases. There is extensive emphysema bilaterally. Meanwhile, the patient is still having a congested cough. Unable to bring up much of sputum. No fever. No chills. No other new complaints otherwise for now. On 08/10/2022, the patient's condition is essentially the same. Sputum sample was positive for pseudomonas aeruginosa. Blood culture was also positive for pseudomonas aeruginosa the patient is currently on IV Zosyn. The patient bilateral pleural effusion. Ultrasound marking of the chest was done and I perf ormed a left-sided thoracentesis today and the patient able to 10% pneumothorax on the left. Total amount of fluid removed was around 250 mL. The patient remained hemodynamically stable. The patient reported improvement in her shortness of breath following the procedure. Nevertheless, she continues to have a congested cough. She is on Mucinex. Unable to bring up much of sputum. The WBC count is improving the white second of 11.6 with a hemoglobin of 9.8. BUN is at 25 with a creatinine of 0.5 and a sodium is at 140. On today's evaluation of 08/11/2022, the patient continues to have a congestive cough, unable to bring up much of sputum. She suffers from pseudomonal bilateral lower lobe pneumonia and bilateral pleural effusion. I performed a thoracentesis fluid on the left external to be transudate. She ended up having a temperature pneumothorax on the left. A repeat chest x-ray will be done today. Meanwhile, earlier this morning, the patient had an acute hemorrhage from her left groin. The surgical once from her previous vascular surgery the past. This wound was developed by vascular surgery. Pressure was applied and currently there is no evidence of any acute bleeding. She is weak. On her blood work, the WBC was 11.6 with a hemoglobin 9.8, BUN is 25 with a creatinine of 0.5 and a sodium level is 140 08/12/2022, slightly improved compared to yesterday, continued to have congestive cough. The repeat chest x-ray was done that showed persistent lower lobe pneumonia. The left-sided pneumothorax remains unchanged. The pleural fluid that was aspirated is a transudate. No other new complaints. No active bleeding from the surgical one-sided. No new labs from today. Remains on bronchodilators. Remains on IV Zosyn. Remains on prednisone. She is complai leydi of heartburn. She'll be given Protonix in addition to Tums for her ongoing active symptoms of heartburn. On today's evaluation of 08/13/2022, respiratory status is slightly improved and the patient's cough and congestion is gradually improving. Her cough is better. She remains on oxygen by nasal cannula. She remains on IV Zosyn. She remains on bronchodilators, Spiriva, prednisone patient is also on oral Lasix 20 mg by mouth twice a day. She is complaining of heartburn and the patient remains on accommodation of Protonix and Tums. She did have another episode of bleeding from her left groin incision and she currently has a pressure dressing applied. Vascular surgeries on the case and they're informed. No evidence of any hematoma. Hemoglobin is at 9.0 which is essentially stable. Patient was seen today on 08/14/2022, doing well from the pulmonary perspective, feeling much better, breathing easier, however she is experiencing bleeding from her left groin which is being addressed now by vascular surgery. Patient had recent the left lower extremity revascularization and a draining hematoma of the left inguinal area with no evidence of pseudoaneurysm. Continues to have a pressure dressing in the left groin, and again this is being addressed by vascular surgery on the case. Labs today showed WBC count of 10.3 hemoglobin is 9.1, elective lites are normal bicarb is 43 renal profile is normal. Ultrasound of the left groin done recently showed a fluid collection [id number] hypoechoic area, consistent with hematoma there was no evidence of pseudoaneurysm. Last chest x-ray from 08/11 showed evidence of minimal left-sided pneumothorax and trace of pleural effusions. Pleural effusion cytology showed no evidence of malignancy. Reevaluated today on 08/15/2022, patient is continuing to do well from the pulmonary perspective, however her CT angiogram of the left femoral artery showed evidence of pseudoaneurysm, hematoma, and the patient is now being evaluated for possible surgery for her large pseudoaneurysm of the femoral artery and hematoma in the left groin. Her iliac artery bypass graft appeared patent. Patient will receive a unit of packed RBCs prior to her surgery, and the surgery scheduled sometime later this afternoon, and Xarelto remains on hold. Reevaluated today on 08/16/2022, patient underwent surgery by vascular surgery, and she had repair of a pseudoaneurysm of the left femoral artery and evacuation of hematoma. She had a RAJESH in place draining some serosanguineous drainage. Pulmonary-shearer patient is doing well, not much of any illness symptoms except occasional cough, advised to be more compliant with her incentive spirometry at bedside. WBC count is 18.8 hemoglobin is 9.2. Basic metabolic profile is normal except bicarb of 41 with normal renal profile. Last chest x-ray was from 08/11/2022. Will likely recommend repeat chest x-ray to be done in the next 24 hours. The patient is seen today 08/17/2022 in follow-up on the selective care unit. She is currently resting fairly comfortably in bed. Awake and alert in no acute distress. Multiple family members at the bedside. Follow-up chest x-ray reveals a small effusion but not enough to consider a thoracentesis at this time. She is maintaining good O2 saturation in the 90s on 3 L nasal cannula. Afebrile. No worsening left groin pain. Continues with excessive bruising. Prevena wound VAC in place. RAJESH drain remains in place. Left lower extremity dressing dry and intact. Doppler pulses. Objective - Vital Signs Vital signs: Vital Signs Temp 97.5 F L 08/17/22 11:44 Pulse 68 08/17/22 12:23 Resp 16 08/17/22 12:23 BP 108/49 08/17/22 11:44 Pulse Ox 98 08/17/22 11:44 FiO2 Intake & Output 08/16/22 08/17/22 08/17/22 18:59 06:59 18:59 Intake Total 576 Output Total 235 290 8 Balance -235 -290 568 Intake: Oral 576 Output: Drainage 35 40 8 Left Groin 35 40 8 Urine 200 250 Other: Voiding Method External Catheter Indwelling Catheter Indwelling Catheter - Exam GENERAL EXAM: Alert, very pleasant 67-year-old female, on 4 L nasal cannula, fairly comfortable in no apparent distress. HEAD: Normocephalic. EYES: Normal reaction of pupils, equal size. NOSE: Clear with pink turbinates. THROAT: No erythema or exudates. NECK: No masses, no JVD. CHEST: No chest wall deformity. LUNGS: Equal air entry with crackles in the bilateral bases. Diminished. CVS: S1 and S2 normal with no audible murmur, regular rhythm. ABDOMEN: No hepatosplenomegaly, normal bowel sounds, no guarding or rigidity. SPINE: No scoliosis or deformity SKIN: No rashes CENTRAL NERVOUS SYSTEM: No focal deficits, tone is normal in all 4 extremities. EXTREMITIES: Left groin with Proventil wound VAC in place, RAJESH drain in place. Left lower extremity dressing dry and intact. Doppler pulses. - Labs CBC & Chem 7: 08/17/22 09:16 08/17/22 09:16 Labs: Abnormal Lab Results - Last 24 Hours (Table) 08/17/22 08/17/22 Range/Units 09:16 09:16 WBC 17.7 H (3.8-10.6) k/uL RBC 2.83 L (3.80-5.40) m/uL Hgb 9.0 L (11.4-16.0) gm/dL Hct 26.9 L (34.0-46.0) % RDW 16.4 H (11.5-15.5) % Plt Count 132 L (150-450) k/uL Neutrophils # 16.3 H (1.3-7.7) k/uL Lymphocytes # 0.4 L (1.0-4.8) k/uL Chloride 96 L (98-107) mmol/L Carbon Dioxide 42 H* (22-30) mmol/L BUN 35 H (7-17) mg/dL Creatinine 0.50 L (0.52-1.04) mg/dL Glucose 150 H (74-99) mg/dL Calcium 8.1 L (8.4-10.2) mg/dL Microbiology - Last 24 Hours (Table) 08/15/22 16:36 Gram Stain - Preliminary Groin Wound Culture - Preliminary Gram Neg Bacilli Assessment and Plan Assessment: Pseudoaneurysm of left femoral artery and left groin hematoma. Status post surgery and repair of pseudoaneurysm 08/15/2022, postoperative day #2 Acute on chronic hypoxic respiratory failure secondary to underlying COPD and bilateral pleural effusions and a iatrogenic pneumothorax and acute pseudomonal pneumonia, Bilateral pleural effusions Acute sepsis secondary to pseudomonas aeruginosa pneumonia History of advanced COPD and previous insertion of zephyr valve Multifocal atrial tachycardia Acute diastolic congestive heart failure, patient has preserved LV function Severe peripheral vessel occlusive disease and previous vascular intervention History of breast cancer History of Sjogren syndrome Dyslipidemia Chronic steroid dependence Plan: The patient was seen and evaluated Chest x-ray, labs and medications reviewed Continue the current treatment plan Xarelto to be resumed per cardiology/vascular We will continue to follow I have personally seen and examined the patient, performed the documentation and the assessment and plan as written. Number of minutes spent on the visit: 10.
--- NOTE | 2022-08-17 16:22 | P.CONS ---
History of Present Illness - Chief Complaint Walking difficulty - History of Present Illness I had the opportunity to see patient for inpatient rehab consultation. Patient admitted to [facility] August 06 with shortness of breath, diagnoses of COPD, CHF and chronic hypoxic respiratory failure. Admitted to Dr. Paredes. Seen by Dr. Castaneda for recent lower extremity vascular bypass. Seen by Dr. Wilkins for infectious disease. Seen by Dr. Munson further pulmonary and shortness of breath problems. Note patient did have chest CT which demonstrated severe emphysema and moderate bilateral pleural effusions. CTA of the lower extremity demonstrated large pseudoaneurysm left groin. Chest x-rays followed for CHF and COPD and possible pneumonia. Patient did eventually undergo aneurysm repair on August 15. Patient reports a reoperation yesterday, August 16. His started therapies. PT reports minimal to maximal assist for bed mobility and really unable to stand. OT reports supervision for feeding, moderate assistance for upper dressing, total assistance for lower dressing and toileting and maximal assistance for bathing. Really unable to do ADL transfers. Previous functional history as elicited from patient: 67-year-old right-handed white female who is lives in a basement apartment with . Patient independent with cooking, laundry, driving, sitdown shower and gait without de vice. is capable of all as well. PCP Dr. Osullivan. Denies tobacco or alcohol. Review of Systems Review of systems: ENT: Denies sneezes or discharge. Eyes: Denies discharge or photophobia. Cardiac: Denies chest pain or palpitation. Pulmonary: Improving/resolved shortness of breath. Breast: Denies discharge or lumps. Gastrointestinal: Denies nausea, emesis, constipation, diarrhea. Genitourinary: Denies discharge or frequency. Musculoskeletal: Groin discomfort. Neurologic: Denies motor or sensory change. Endocrine: Denies shakes or sweats. Oncology: Denies cancers. Dermatologic: Denies rash, itching, pruritus. ALLERGY/immunology: Denies sneezes, rashes. Past Medical History Past Medical History: Atrial Fibrillation, Cancer, COPD, GERD/Reflux, Hyperlipidemia, Pneumonia, Respiratory Disorder, Vascular Disorder Additional Past Medical History / Comment(s): wound left leg-following wound ca re w/ Libby Pacheco upper lobe nodule being monitored, home oxygen at 2L/CONTINOUS, PVD, osteoporosis, constipation. LEFT BREAST CANCER received radiation 2020 History of Any Multi-Drug Resistant Organisms: None Reported Past Surgical History: Breast Surgery, Cholecystectomy, Hysterectomy, Orthopedic Surgery Additional Past Surgical History / Comment(s): 07/29/21 L iliac percutaneous balloon angioplasty with stent/atherectomy/PTBA L femoral artery/RFID DEVELOPER R femoral artery/R iliac stent, abdominal aortagram, bronchoscopies with biopsy, bilateral wrist carpal tunnel, TMJ surgery, left neck cyst removed, colonoscopy, left br east lumpectomy. Past Anesthesia/Blood Transfusion Reactions: Previous Problems w/ Anesthesia, Blood Transfusion Reaction Additional Past Anesthesia/Blood Transfusion Reaction / Comm: SLOW TO WAKE UP. had transfusion in Jan 2022-had reaction dyspnea,tachypnea,nausea Past Psychological History: Anxiety Smoking Status: Never smoker - Past Family History Father Family Medical History: Cancer Additional Family Medical History / Comment(s): LUNG CANCER. Mother Family Medical History: Cancer Additional Family Medical History / Comment(s): BREAST CANCER. Medications and Allergies Home Medications Medication Instructions Recorded Confirmed Type Hydroxychloroquine Sulfate 200 mg PO BID 03/29/15 08/06/22 History [Plaquenil] Fluticasone Propion/Salmeterol 1 puff INHALATION RT-BID 05/31/16 08/06/22 Histor y [Advair 500-50 Diskus] Gabapentin [Neurontin] 300 mg PO BID 04/07/19 08/06/22 History Levalbuterol Hfa Inhaler [Xopenex 1 puff INHALATION RT-Q6H PRN 04/07/19 08/06/22 History Hfa Inhaler] Calcium Carbonate [Calcium] 1,200 mg PO DAILY 04/29/19 08/06/22 History Letrozole [Femara] 2.5 mg PO DAILY 10/23/19 08/06/22 History Albuterol Nebulized [Ventolin 2.5 mg INHALATION RT-QID PRN 11/04/20 08/06/22 History Nebulized] Docusate [Colace] 100 mg PO DAILY 01/09/21 08/06/22 History buPROPion HCL [Wellbutrin SR] 100 mg PO DAILY 01/09/21 08/06/22 History Atorvastatin [Lipitor] 80 mg PO HS #90 tab 07/29/21 08/06/22 Rx ALPRAZolam [Xanax] 0.25 mg PO BID PRN 08/03/21 08/06/22 History Cholecalciferol [Vitamin D3 (25 50 mcg PO DAILY 08/03/21 08/06/22 History Mcg = 1000 Iu)] Tiotropium 2.5 Mcg/Puff [Spiriva 2 puff INHALATION RT-DAILY 08/03/21 08/06/22 History Respimat 2.5 Mcg] Metoprolol Tartrate [Lopressor] 12.5 mg PO BID 30 Days #60 tab 08/05/21 08/06/22 Rx Pantoprazole Sodium [Protonix] 40 mg PO BID #60 tab 08/07/21 08/06/22 Rx Furosemide [Lasix] 20 mg PO DAILY 11/30/21 08/06/22 History hydroCHLOROthiazide [Hydrodiuril] 25 mg PO DAILY 11/30/21 08/06/22 History Aspirin 325 mg PO DAILY tab 01/06/22 08/06/22 Rx Rivaroxaban [Xarelto] 2.5 mg PO BID #60 tab 07/25/22 08/06/22 Rx Gabapentin [Neurontin] 400 mg PO TID 08/06/22 08/06/22 History predniSONE See Taper PO DIRECTED 08/06/22 08/06/22 History Allergies Allergy/AdvReac Type Severity Reaction Status Date / Time banana Allergy Abdominal Verified 08/15/22 12:51 Pain budesonide [From Pulmicort] Allergy Dyspnea Verified 08/15/22 12:51 Iodinated Contrast Media Allergy Anaphylaxis Verified 08/15/22 12:51 [Iodinated Contrast Media - IV Dye] penicillin G Allergy Rash/Hives Verified 08/15/22 12:51 codeine AdvReac Nausea & Verified 08/15/22 12:51 Vomiting levofloxacin AdvReac joint pain Verified 08/15/22 12:51 verapamil AdvReac HEADACHE Verified 08/15/22 12:51 Physical Exam Vitals: Vital Signs Temp Pulse Pulse Pulse Pulse Pulse Resp 08/17/22 15:36 97.7 F 74 18 08/17/22 12:23 68 16 08/17/22 12:11 68 16 08/17/22 11:44 97.5 F L 64 18 08/17/22 11:20 97.6 F 68 20 08/17/22 08:38 69 18 08/17/22 08:29 68 18 08/17/22 08:00 98.0 F 75 75 16 08/17/22 07:35 97.7 F 72 14 08/17/22 04:00 98.0 F 66 59 L 16 08/17/22 02:08 72 69 08/16/22 23:44 98.4 F 65 63 19 08/16/22 21:26 69 08/16/22 21:16 64 08/16/22 20:00 97.3 F L 72 69 20 BP Pulse Ox 08/17/22 15:36 104/52 98 08/17/22 12:23 08/17/22 12:11 08/17/22 11:44 108/49 98 08/17/22 11:20 99/60 97 08/17/22 08:38 08/17/22 08:29 100 08/17/22 08:00 117/60 08/17/22 07:35 106/46 08/17/22 04:00 110/51 99 08/17/22 02:08 08/16/22 23:44 108/57 100 08/16/22 21:26 08/16/22 21:16 08/16/22 20:00 119/53 98 Intake and Output 08/17/22 08/17/22 08/17/22 06:59 14:59 22:59 Intake Total 576 Output Total 290 358 3 Balance -290 218 -3 Intake: Oral 576 Output: Drainage 40 8 3 Left Groin 40 8 3 Urine 250 350 Other: Voiding Method Indwelling Catheter Indwelling Catheter # Bowel Movements 0 Skin: Atrophic, intact. General: Medium build and comfortable appearance. Head: Normocephalic, atraumatic. Eyes: Symmetric. Pupils equal round. Ears: Symmetric. Hearing within normal limits. Mouth: Clear. Neck: Supple. Carotid without bruit. Cardiac: Regular rate and rhythm. Lungs: Clear anteriorly and posteriorly. Abdomen: Soft active nontender. Extremities: Normal tone. Groin clean and dressed. Wearing boots in bed. Neurological: Mental status: Alert, cooperative, pleasant. Cranial nerves: Symmetric facial tone and trapezius. Motor: Normal strength and isolation arms. Legs poor elevation off of bed, if at all. Active movement right ankle and poor movement left ankle. Sensation: Intact throughout. DTRs: Symmetric and equal throughout. Mobility: Did not attempt to sit or stand on my own. Results CBC & Chem 7: 08/17/22 09:16 08/17/22 09:16 Labs: Abnormal Lab Results - Last 24 Hours (Table) 08/17/22 08/17/22 Range/Units 09:16 09:16 WBC 17.7 H (3.8-10.6) k/uL RBC 2.83 L (3.80-5.40) m/uL Hgb 9.0 L (11.4-16.0) gm/dL Hct 26.9 L (34.0-46.0) % RDW 16.4 H (11.5-15.5) % Plt Count 132 L (150-450) k/uL Neutrophils # 16.3 H (1.3-7.7) k/uL Lymphocytes # 0.4 L (1.0-4.8) k/uL Chloride 96 L (98-107) mmol/L Carbon Dioxide 42 H* (22-30) mmol/L BUN 35 H (7-17) mg/dL Creatinine 0.50 L (0.52-1.04) mg/dL Glucose 150 H (74-99) mg/dL Calcium 8.1 L (8.4-10.2) mg/dL Microbiology - Last 24 Hours (Table) 08/15/22 16:36 Gram Stain - Preliminary Groin Wound Culture - Preliminary Gram Neg Bacilli Assessment and Plan (1) Atherosclerosis of left lower extremity with ulceration of calf Current Visit: Yes Status: Acute Code(s): I70.242 - ATHSCL [place] ARTERIES OF LEFT LEG W ULCERATION OF CALF SNOMED Code(s): 84609880 (2) Atherosclerosis of left lower extremity with ulceration of thigh Current Visit: Yes Status: Acute Code(s): I70.241 - ATHSCL [place] ARTERIES OF LEFT LEG W ULCERATION OF THIGH SNOMED Code(s): 69061214 (3) Atrial fibrillation with RVR Current Visit: Yes Status: Acute Code(s): I48.91 - UNSPECIFIED ATRIAL FIBRILLATION SNOMED Code(s): 756964620757300 (4) Bacteremia due to Pseudomonas Current Visit: Yes Status: Acute Code(s): R78.81 - BACTEREMIA; B96.5 - PSEUDOMONAS (MALLEI) CAUSING DISEASES CLASSD ELSWHR SNOMED Code(s): 9832676957 (5) Non-pressure chronic ulcer of left calf with fat layer exposed Current Visit: Yes Status: Acute Code(s): L97.222 - NON-PRESSURE CHRONIC ULCER OF LEFT CALF W FAT LAYER EXPOSED SNOMED Code(s): 79994758573909064 (6) Non-pressure chronic ulcer of left thigh with fat layer exposed Current Visit: Yes Status: Acute Code(s): L97.122 - NON-PRESSURE CHRONIC ULCER OF LEFT THIGH W FAT LAYER EXPOSED SNOMED Code(s): 69554961389554817 Plan: Comments and plan: At this time patient apparently has had procedures left groin August 15 and August 16. At this time my concern would be any standing or walking such as would be included in full inpatient rehabilitation may be to much for patient and in fact cause harm of surgery. For this reason do not believe the patient is ready for full IPR at this time. We'll follow closely in review Sunday a.m. This was discussed with patient and manager social responsibility.
[2022-08-17] MEDS: ATORVASTATIN 80 MG TAB PO SCH (21:09)
[2022-08-18] MEDS: PIPERACILLIN-TAZOBACTAM 3.375 GM in SODIUM CHLORIDE 0.9% 100 ML IVPB SCH (05:21)
[2022-08-18] MEDS: PANTOPRAZOLE 40 MG TABLET PO SCH ×2 (05:22→17:27)
[2022-08-18] MEDS: SODIUM CHLORIDE 0.9% 1,000 ML IV SCH (07:44)
[2022-08-18] MEDS: FUROSEMIDE 20 MG TAB PO SCH ×2 (07:44→15:58)
[2022-08-18 08:04] LABS: Anisocytosis Slight; Basophils % (A) 0 %; Eosinophils # (A) 0.1 k/uL (0-0.7); Eosinophils % (A) 1 %; HCT 26.1 % (34.0-46.0); HGB 8.6 gm/dL (11.4-16.0); Hypochromasia Slight; Lymphocytes # (A) 0.6 k/uL (1.0-4.8); Lymphocytes % (A) 5 %; MCH 31.4 pg (25.0-35.0); MCV 95.2 fL (80.0-100.0); Monocytes # (A) 0.5 k/uL (0-1.0); Monocytes % (A) 4 %; Neutrophils # (A) 11.4 k/uL (1.3-7.7); Neutrophils % (A) 89 %; Platelet Count 178 k/uL (150-450); Poikilocytosis Moderate; RBC 2.75 m/uL (3.80-5.40); RDW 16.4 % (11.5-15.5); WBC 12.7 k/uL (3.8-10.6)
[2022-08-18] MEDS: TIOTROPIUM 2.5 MCG INHALER INHALATION SCH (08:31)
[2022-08-18] MEDS: NON FORMULARY DRUG (Fluticasone Propion/Salmeterol [Advair 500-50 Diskus] 1 EACH Blst.W.De INHALATION SCH ×2 (08:31→20:33)
[2022-08-18] MEDS: ALBUTEROL NEBULIZED 2.5 MG/3 ML INHALATION SCH ×3 (08:31→20:33)
[2022-08-18 08:35] LABS: African American GFR (CKD) >90 (>60 ml/min/1.73 sqM); Blood Urea Nitrogen 27 mg/dL (7-17); Calcium 8.3 mg/dL (8.4-10.2); Chloride 95 mmol/L (98-107); Glucose 89 mg/dL (74-99); Non-African American GFR(CKD) >90 (>60 ml/min/1.73 sqM); Potassium 3.3 mmol/L (3.5-5.1); Sodium 141 mmol/L (137-145)
[2022-08-18] MEDS: HYDROmorphone 0.5 MG/0.5 ML SYRINGE IVP PRN ×3 (08:40→21:45)
[2022-08-18 08:42] LABS: Anion Gap 1 mmol/L
[2022-08-18 08:45] LABS: Carbon Dioxide 45 mmol/L (22-30)
[2022-08-18] MEDS: CHOLECALCIFEROL 25 MCG (1000 IU) TABLET PO SCH (09:39)
[2022-08-18] MEDS: ASPIRIN 81 MG PO SCH (09:39)
[2022-08-18] MEDS: DILTIAZEM ORAL 30 MG TAB PO SCH ×3 (09:39→20:24)
[2022-08-18] MEDS: guaiFENesin-DM 600/30MG 1 EACH TAB.ER.12H PO SCH ×2 (09:40→20:24)
[2022-08-18] MEDS: METOPROLOL TARTRATE 25 MG TAB PO SCH ×2 (09:40→20:23)
[2022-08-18] MEDS: DOCUSATE 100 MG CAP PO SCH (09:40)
[2022-08-18] MEDS: LETROZOLE 2.5 MG TAB PO SCH (09:40)
[2022-08-18] MEDS: GABAPENTIN 300 MG CAP PO SCH ×3 (09:40→20:23)
[2022-08-18] MEDS: HYDROXYCHLOROQUINE SULFATE 200 MG TAB PO SCH ×2 (09:40→20:23)
[2022-08-18] MEDS: POTASSIUM CHLORIDE ER 20 MEQ TAB.ER PO SCH ×2 (09:41→11:30)
[2022-08-18] MEDS: predniSONE 20 MG TAB PO SCH (09:41)
[2022-08-18] MEDS: RIVAROXABAN 2.5 MG TABLET PO SCH ×2 (09:41→20:24)
[2022-08-18] MEDS: COLLAGENASE 250 UNIT/GM OINTMENT 30 GM TUBE TOPICAL SCH (09:59)
--- NOTE | 2022-08-18 10:01 | P.PN ---
Subjective Progress Note Date: 08/18/22 Principal diagnosis: Shortness of breath, left femoral artery pseudoaneurysm with bleed, left femoral patch leak Patient was seen and examined today as a follow-up. She states she continues to have pain on the medial and lateral sides of her left foot. She states is controlled with pain medication. She has good sensorimotor in her foot. No acute changes through the night. She's been afebrile. Left groin with prevena dressing in place with good suction, RAJESH drain with approximately 5 mL serosanguineous drainage. Wound culture came back positive for Pseudomonas aeruginosa. She remains on Zosyn and is being closely followed by infectious disease. Yesterday patient worked with physical therapy she did state that she had difficulty getting up and applying pressure to the left foot and she states that she could not feel it. However patient is able to feel good sensation and touch to the top of her foot and sides. Plan is for possible discharge to inpatient rehab. Objective - Vital Signs Vital signs: Vital Signs Temp 97.7 F 08/18/22 07:15 Pulse 70 08/18/22 08:43 Resp 20 08/18/22 07:15 BP 117/56 08/18/22 07:15 Pulse Ox 94 L 08/18/22 08:33 FiO2 Intake & Output 08/17/22 08/18/22 08/18/22 18:59 06:59 18:59 Intake Total 576 120 Output Total 361 410 Balance 215 -410 120 Intake: Oral 576 120 Output: Drainage 11 10 Left Groin 11 10 Urine 350 400 Other: Voiding Method Indwelling Catheter Indwelling Catheter Indwelling Catheter # Bowel Movements 0 - Exam General appearance: The patient is alert, oriented, appears in no acute distress. HET: Head is normocephalic and atraumatic. Pupils are equal and reactive. Neck: Supple without lymphadenopathy. Trachea midline. Extremities: Left groin with Prevena dressing in place with good suction, RAJESH drain with approximately 5 ml serosanguineous drainage. Left lower extremity dressing clean dry and intact, no foul odor. Palpable bypass graft. Doppler signal left PT and DP. Sensorimotor intact. Tender to palpation along the medial and lateral aspect of left foot. Foot and toes cool to touch, ankle and above warm. Neurological: No focal deficits. - Labs CBC & Chem 7: 08/18/22 07:24 08/18/22 07:24 Labs: Abnormal Lab Results - Last 24 Hours (Table) 08/17/22 08/17/22 08/18/22 Range/Units 09:16 09:16 07:24 WBC 17.7 H 12.7 H (3.8-10.6) k/uL RBC 2.83 L 2.75 L (3.80-5.40) m/uL Hgb 9.0 L 8.6 L (11.4-16.0) gm/dL Hct 26.9 L 26.1 L (34.0-46.0) % RDW 16.4 H 16.4 H (11.5-15.5) % Plt Count 132 L (150-450) k/uL Neutrophils # 16.3 H 11.4 H (1.3-7.7) k/uL Lymphocytes # 0.4 L 0.6 L (1.0-4.8) k/uL Potassium (3.5-5.1) mmol/L Chloride 96 L (98-107) mmol/L Carbon Dioxide 42 H* (22-30) mmol/L BUN 35 H (7-17) mg/dL Creatinine 0.50 L (0.52-1.04) mg/dL Glucose 150 H (74-99) mg/dL Calcium 8.1 L (8.4-10.2) mg/dL 08/18/22 Range/Units 07:24 WBC (3.8-10.6) k/uL RBC (3.80-5.40) m/uL Hgb (11.4-16.0) gm/dL Hct (34.0-46.0) % RDW (11.5-15.5) % Plt Count (150-450) k/uL Neutrophils # (1.3-7.7) k/uL Lymphocytes # (1.0-4.8) k/uL Potassium 3.3 L (3.5-5.1) mmol/L Chloride 95 L (98-107) mmol/L Carbon Dioxide 45 H* (22-30) mmol/L BUN 27 H (7-17) mg/dL Creatinine 0.46 L (0.52-1.04) mg/dL Glucose (74-99) mg/dL Calcium 8.3 L (8.4-10.2) mg/dL Microbiology - Last 24 Hours (Table) 08/15/22 16:36 Anaerobic Culture - Preliminary Groin 08/15/22 16:36 Gram Stain - Final Groin Wound Culture - Final Pseudomonas aeruginosa Assessment and Plan Assessment: 1. Pseudoaneurysm left femoral artery, hemorrhage, and left femoral patch peak status post vascular surgical repair with incisional vac placement 2. Acute on chronic anemia 3. COPD exacerbation 4. CHF exacerbation 5. Recent left lower extremity revascularization, with open wounds 6. Peripheral arterial disease 7. Atrial fibrillation on Xarelto, currently on hold 8. Bacteremia with pseudomonas aeruginosa, sputum culture positive for Pseudomonas aeruginosa 9. Bilateral lower lobe pneumonia Plan: 1. Keep prevena dressing in place for 7 days 2. Keep RAJESH drain in place 3. Continue local wound care 4. Continue medical management 5. Antibiotics per recommendations from infectious disease 6. Please apply soft heel protector boots to bilateral feet 7. Encourage increased mobility/ambulation with physical therapy. Also discussed with patient importance of range of motion in bed with bilateral lower extremities. Patient verbalized understanding. Thank you for this consultation. The patient is cleared from vascular surgery for discharge. Patient will need outpatient follow-up with Dr. Garcia and wound care center. The impression and plan of care has been dictated as directed. Dr. Horan I performed a history and examination of this patient, discussed the same with the dictator. I agree with the dictator's note ,documented as a scribe. Any additional findings or plans will be noted.
[2022-08-18] MEDS: CEFEPIME 2 GM in SODIUM CHLORIDE 0.9% 100 ML IVPB SCH ×2 (11:52→20:22)
[2022-08-18] MEDS: HYDROcodone/APAP 5-325MG 1 EACH TAB PO PRN ×2 (12:02→20:21)
--- NOTE | 2022-08-18 13:45 | P.PN ---
Subjective Progress Note Date: 08/18/22 Principal diagnosis: Acute hospital-acquired pseudomonal pneumonia and acute hypoxic respiratory failure 67-year-old female patient who presented to the hospital having fever and some worsening shortness of breath. The patient is known to have advanced COPD and she has undergone [place] valve insertion regarding her advanced COPD and the patient has been maintained on a combination of Spiriva and Advair an outpatient basis. The patient is oxygen dependent. The patient does also use oxygen at 2 L per minute nasal cannula at baseline. Noted the patient was in the hospital approximately 3 weeks ago and the patient underwent a vascular/femoral endarterectomy on her left femoral artery for symptomatic claudication. At that time, I took care of this patient in the intensive care unit. The patient is also has severe peripheral vascular disease and she has undergone prior stenting to her bilateral common iliacs and external iliacs and subsequently she required the left femoral and left profunda endarterectomy and left femoral to tibial peroneal trunk bypass. Postop, she developed some swelling in lower extremity and she does have a 4.1 and in her upper thigh with some purulent drainage at the base. During this current hospital stay, the patient was found to be septic. Blood culture was positive for pseudomonas aeruginosa and the patient was seen by infectious disease and the patient was started on IV Zosyn. Meanwhile, the patient is having worsening shortness of breath, cough and congestion. She has excessively congestive cough. She is unable to bring up much of sputum. Her sputum sample has been collected and is showing some few gram-negative bacilli. Her initial white cell count was at 17.2 and dropped down to 14.7. Her pro calcitonin level was 8.0. The chest x-ray showing bilateral lower lobe pulmonary infiltrates and the patient also has a some mild thoracic kyphosis and anterior wedging of the lower was thoracic vertebral and order of 30%. On 08/09/2022, the patient is still complaining of shortness of breath. As mentioned, the patient advanced COPD. For now, sputum is growing gram-negative bacillus and the patient has blood cultures is positive for pseudomonas aeruginosa. The patient is on IV Zosyn. This is most likely bilateral pneumonia with secondary sepsis. At the same time, CAT scan of the chest was done that showed limited infiltration of the lung bases and small to moderate- sized bilateral pleural effusion the lung bases. There is extensive emphysema bilaterally. Meanwhile, the patient is still having a congested cough. Unable to bring up much of sputum. No fever. No chills. No other new complaints otherwise for now. On 08/10/2022, the patient's condition is essentially the same. Sputum sample was positive for pseudomonas aeruginosa. Blood culture was also positive for pseudomonas aeruginosa the patient is currently on IV Zosyn. The patient bilateral pleural effusion. Ultrasound marking of the chest was done and I performed a left-sided thoracentesis today and the patient able to 10% p neumothorax on the left. Total amount of fluid removed was around 250 mL. The patient remained hemodynamically stable. The patient reported improvement in her shortness of breath following the procedure. Nevertheless, she continues to have a congested cough. She is on Mucinex. Unable to bring up much of sputum. The WBC count is improving the white second of 11.6 with a hemoglobin of 9.8. B UN is at 25 with a creatinine of 0.5 and a sodium is at 140. On today's evaluation of 08/11/2022, the patient continues to have a congestive cough, unable to bring up much of sputum. She suffers from pseudomonal bilateral lower lobe pneumonia and bilateral pleural effusion. I performed a thoracentesis fluid on the left external to be transudate. She ended up having a temperature pneumothorax on the left. A repeat chest x-ray will be done today. Meanwhile, earlier this morning, the patient had an acute hemorrhage from her left groin. The surgical once from her previous vascular surgery the past. This wound was developed by vascular surgery. Pressure was applied and currently there is no evidence of any acute bleeding. She is weak. On her blood work, the WBC was 11.6 with a hemoglobin 9.8, BUN is 25 with a creatinine of 0.5 and a sodium level is 140 08/12/2022, slightly improved compared to yesterday, continued to have congestive cough. The repeat chest x-ray was done that showed persistent lower lobe pneumonia. The left-sided pneumothorax remains unchanged. The pleural fluid that was aspirated is a transudate. No other new complaints. No active bleeding from the surgical one-sided. No new labs from today. Remains on bronchodilators. Remains on IV Zosyn. Remains on prednisone. She is complaining of heartburn. She'll be given Protonix in addition to Tums for her ongoing active symptoms of heartburn. On today's evaluation of 08/13/2022, respiratory status is slightly improved and the patient's cough and congestion is gradually improving. Her cough is better. She remains on oxygen by nasal cannula. She remains on IV Zosyn. She remains on bronchodilators, Spiriva, prednisone patient is also on oral Lasix 20 mg by mouth twice a day. She is complaining of heartburn and the patient remains on accommodation of Protonix and Tums. She did have another episode of bleeding from her left groin incision and she currently has a pressure dressing applied. Vascular surgeries on the case and they're informed. No evidence of any hematoma. Hemoglobin is at 9.0 which is essentially stable. Patient was seen today on 08/14/2022, doing well from the pulmonary perspective, feeling much better, breathing easier, however she is experiencing bleeding from her left groin which is being addressed now by vascular surgery. Patient had recent the left lower extremity revascularization and a draining hematoma of the left inguinal area with no evidence of pseudoaneurysm. Continues to have a pressure dressing in the left groin, and again this is being addressed by vascular surgery on the case. Labs today showed WBC count of 10.3 hemoglobin is 9.1, elective lites are normal bicarb is 43 renal profile is normal. Ultrasound of the left groin done recently showed a fluid collection [id number] hypoechoic area, consistent with hematoma there was no evidence of pseudoaneurysm. Last chest x-ray from 08/11 showed evidence of minimal left-sided pneumothorax and trace of pleural effusions. Pleural effusion cytology showed no evidence of malignancy. Reevaluated today on 08/15/2022, patient is continuing to do well from the pulmonary perspective, however her CT angiogram of the left femoral artery showed evidence of pseudoaneurysm, hematoma, and the patient is now being evaluated for possible surgery for her large pseudoaneurysm of the femoral artery and hematoma in the left groin. Her iliac artery bypass graft appeared patent. Patient will receive a unit of packed RBCs prior to her surgery, and the surgery scheduled sometime later this afternoon, and Xarelto remains on hold. Reevaluated today on 08/16/2022, patient underwent surgery by vascular surgery, and she had repair of a pseudoaneurysm of the left femoral artery and evacuation of hematoma. She had a RAJESH in place draining some serosanguineous drainage. Pulmonary-shearer patient is doing well, not much of any illness symptoms except occasional cough, advised to be more compliant with her incentive spirometry at bedside. WBC count is 18.8 hemoglobin is 9.2. Basic metabolic profile is normal except bicarb of 41 with normal renal profile. Last chest x-ray was from 08/11/2022. Will likely recommend repeat chest x-ray to be done in the next 24 hours. Reevaluated today on 08/18/2022, patient is doing fairly well, she was seen yesterday by Dr. Bedolla for possible inpatient rehab. Patient was seen today by vascular surgery, continues to have RAJESH drain in place, and approximately 5 mL of serosanguineous drainage noted in the last 24 hours. Wound cultures have been positive for pseudomonas aeruginosa, patient remains on Zosyn. Being followed by infectious disease. Last chest x-ray showed small left-sided pleural effusion, not large enough to consider repeat thoracentesis on this patient. I believe this patient would benefit from inpatient rehab, and that being in progress. WBC count today is 12.7 hemoglobin is 8.6. Basic metabolic profile is unremarkable except for bicarb of 45. Objective - Vital Signs Vital signs: Vital Signs Temp 96.5 F L 08/18/22 12:10 Pulse 74 08/18/22 12:33 Resp 24 08/18/22 12:10 BP 99/49 08/18/22 12:10 Pulse Ox 91 L 08/18/22 12:10 FiO2 Intake & Output 08/17/22 08/18/22 08/18/22 18:59 06:59 18:59 Intake Total 576 478 Output Total 361 410 329 Balance 215 -410 149 Intake: Oral 576 478 Output: Drainage 11 10 4 Left Groin 11 10 4 Urine 350 400 325 Other: Voiding Method Indwelling Catheter Indwelling Catheter Indwelling Catheter # Bowel Movements 0 - Exam Physical Exam: Revealed a 67-year-old female in no distress, on 2 L nasal cannula. Family is at bedside. Head: Atraumatic, normocephalic. HEENT:[Neck is supple.] [No neck masses.] [No thyromegaly.] [No JVD.] Chest: [Diminished breath sounds at the bases no crackles or rhonchi or wheezes Cardiac Exam: [Normal S1 and S2, no S3 gallop, no murmur.] Abdomen: [Soft, nontender, no megaly, no rebound, no guarding, normal bowel sounds.] Extremities:Left groin with Prevena dressing in place with good suction, RAJESH drain with approximately5 mls serosanguineous drainage. Left lower extremity dressing clean dry and intact. Neurological Exam: [No focal neurologic deficit.] Alert and oriented 3. Psychiatric: Normal mood affect and normal mental status examination. Skin: No rashes. - Labs CBC & Chem 7: 08/18/22 07:24 08/18/22 07:24 Labs: Abnormal Lab Results - Last 24 Hours (Table) 08/18/22 08/18/22 08/18/22 Range/Units 07:24 07:24 12:25 WBC 12.7 H (3.8-10.6) k/uL RBC 2.75 L (3.80-5.40) m/uL Hgb 8.6 L (11.4-16.0) gm/dL Hct 26.1 L (34.0-46.0) % RDW 16.4 H (11.5-15.5) % Neutrophils # 11.4 H (1.3-7.7) k/uL Lymphocytes # 0.6 L (1.0-4.8) k/uL Potassium 3.3 L (3.5-5.1) mmol/L Chloride 95 L (98-107) mmol/L Carbon Dioxide 45 H* (22-30) mmol/L BUN 27 H (7-17) mg/dL Creatinine 0.46 L (0.52-1.04) mg/dL Calcium 8.3 L (8.4-10.2) mg/dL Troponin I 0.078 H* (0.000-0.034) ng/mL Microbiology - Last 24 Hours (Table) 08/15/22 16:36 Anaerobic Culture - Preliminary Groin 08/15/22 16:36 Gram Stain - Final Groin Wound Culture - Final Pseudomonas aeruginosa Assessment and Plan Assessment: Impression: Pseudoaneurysm of left femoral artery and left groin hematoma. Status post surgery and repair of pseudoaneurysm 08/15/2022, postoperative day #3 Acute on chronic hypoxic respiratory failure secondary to underlying COPD and bilateral pleural effusions and a iatrogenic pneumothorax and acute pseudomonal pneumonia, Bilateral pleural effusions Acute sepsis secondary to pseudomonas aeruginosa pneumonia History of advanced COPD and previous insertion of [place]phyr valve Multifocal atrial tachycardia Acute diastolic congestive heart failure, patient has preserved LV function Severe peripheral vessel occlusive disease and previous vascular intervention History of breast cancer History of Sjogren syndrome Dyslipidemia Chronic steroid dependence Recommendation: Continue present supportive care measures Continue bronchodilators continue antibiotics/Zosyn, being followed by infectious disease. Continue bronchodilators Continue prednisone Restarted back on Xarelto, relatively low dose. Continue GI prophylaxis We will continue to follow Time with Patient: Less than 30
--- NOTE | 2022-08-18 15:51 | P.PN ---
Subjective Progress Note Date: 08/18/22 Principal diagnosis: Pseudomonas bacteremia Patient is a 67-year-old female with a past medical history significant for hypertension GERD atrial fibrillation peripheral arterial disease left breast cancer presenting to the ER for evaluation of increasing shortness of breath patient did have fever and elevated white count and recently did have a left lower extremity muscular procedure with open wound to the left medial thigh and left leg subsequently with evidence of pseudomonas bacteremia. Patient is status post left-sided thoracocentesis completed on 08/10/2022 with removal of 250 mL turbid fluid culture were negative patient also have a left lower extremity CT with evidence of large left femoral pseudoaneurysm and hematoma,Patient did have a left groin exploration for control of the left femoral artery hemorrhage controlled the left external iliac endarterectomy portion stent removal, open thrombectomy of the left femoral tibial vein bypass and profunda artery patch angioplasty antibiotic beads his pain with the procedure completed on 08/15/2022 On today's evaluation that is 08/18/2022, the patient continues to be afebrile, the patient is breathing comfortably on 2 L nasal cannula oxygen, patient denies having any chest pain , the patient denies any worsening cough or sputum production, The patient has been complaining of more pain to the left leg today no vomiting or diarrhea Objective - Vital Signs Vital signs: Vital Signs Temp 98.1 F 08/18/22 08:00 Pulse 70 08/18/22 08:43 Resp 18 08/18/22 08:00 BP 103/48 08/18/22 08:00 Pulse Ox 94 L 08/18/22 08:33 FiO2 Intake & Output 08/17/22 08/18/22 08/18/22 18:59 06:59 18:59 Intake Total 576 238 Output Total 361 410 4 Balance 215 -410 234 Intake: Oral 576 238 Output: Drainage 11 10 4 Left Groin 11 10 4 Urine 350 400 Other: Voiding Method Indwelling Catheter Indwelling Catheter Indwelling Catheter # Bowel Movements 0 - Exam GENERAL DESCRIPTION: An elderly female lying in bed in no distress RESPIRATORY SYSTEM: Unlabored breathing , decreased breath sounds at bases HEART: S1 S2 regular rate and rhythm , ABDOMEN: Soft , no tenderness EXTREMITIES: Left thigh wound wounds covered with a wound VAC left foot is warm and no open wound or any drainage - Labs CBC & Chem 7: 08/18/22 07:24 08/18/22 07:24 Labs: Abnormal Lab Results - Last 24 Hours (Table) 08/18/22 08/18/22 Range/Units 07:24 07:24 WBC 12.7 H (3.8-10.6) k/uL RBC 2.75 L (3.80-5.40) m/uL Hgb 8.6 L (11.4-16.0) gm/dL Hct 26.1 L (34.0-46.0) % RDW 16.4 H (11.5-15.5) % Neutrophils # 11.4 H (1.3-7.7) k/uL Lymphocytes # 0.6 L (1.0-4.8) k/uL Potassium 3.3 L (3.5-5.1) mmol/L Chloride 95 L (98-107) mmol/L Carbon Dioxide 45 H* (22-30) mmol/L BUN 27 H (7-17) mg/dL Creatinine 0.46 L (0.52-1.04) mg/dL Calcium 8.3 L (8.4-10.2) mg/dL Microbiology - Last 24 Hours (Table) 08/15/22 16:36 Anaerobic Culture - Preliminary Groin 08/15/22 16:36 Gram Stain - Final Groin Wound Culture - Final Pseudomonas aeruginosa Assessment and Plan (1) Bacteremia due to Pseudomonas Current Visit: Yes Status: Acute Code(s): R78.81 - BACTEREMIA; B96.5 - PSE UDOMONAS (MALLEI) CAUSING DISEASES [facility] Code(s): 7502424635 Plan: 1patient presented to hospital with sepsis in this patient who did a fever elevated white tachycardia and now with evidence of gram-negative bacteremia source questionably infected left lower extremity wound with a recent vascular procedure for PAD versus pneumonia however chest x-ray is most interstitial infiltrate although the patient did have elevated procalcitonin sputum cultures have been obtained which did grow pseudomonas aeruginosa 2-blood cultures repeat has been negative , pleural fluid cultures are so far negative, 3-patient did have extensive surgery to the left groin and cultures has been taken which are growing Pseudomonas which is a sensitive pathogen 4- patient antibiotic adjusted to cefepime 2 g every 8 hours she will need a PICC line for outpatient IV antibiotic therapy discussed with the MANAGER [employer]ELOP[employer] for admitting team Time with Patient: Less than 30
[2022-08-18] MEDS: ATORVASTATIN 80 MG TAB PO SCH (20:23)
--- NOTE | 2022-08-18 21:17 | CDI ---
Documentation Clarification Form Date: 08/18/2022 8:19:42 PM From: Ayana Rasmussen RN CCDS Phone: [phone] Admit Date: 08/06/2022 6:11:00 AM Patient Name: Franca Betts Visit Number: [id number] Discharge Date: ATTENTION: The Clinical Documentation Specialists (CDI) and [facility] Coding Staff appreciate your assistance in clarifying documentation. Please respond to the clarification below the line at the bottom and electronically sign. The CDI & [facility] Coding staff will review the response and follow-up if needed. Please note: Queries are made part of the Legal Health Record. If you have any questions, please contact the author of this message via ITS. Dr. Afshin Robertson Iatrogenic pneumothorax is documented 08/14 08/18, Pulmonary notes and patient had Left Thoracentesis, 08/10. Additional clarification is requested regarding the relationship, if any, that exists between the diagnosis and the procedure. Patients Admitting Diagnosis: Pleural effusion, left / Acute on Chronic Diastolic Heart Failure Post-Operative Diagnosis: Left Pleural effusion Procedure performed: Thoracentesis, left History/Risk Factors: 67-year-old Female presents to the ED with shortness of breath, productive cough whitish sputum and bilateral lower extremity edema. Medical History: Atrial fibrillation, COPD, HLD, Vascular disorder, Breast cancer and home oxygen 2l continuous. 08/06, H&P. Clinical Indicators: 08/06 CXR: Heart enlarged. Blunting of the cost phrenic angles and pulmonary congestion. 08/08 CT Chest without contrast: Moderate bilateral pleural effusions. Severe emphysema. 08/09 Chest US: Right and Left side marked for possible thoracentesis. 08/10 CXR: Interval development of approximately 10% left sided pneumothorax. COPD with bilateral consolidation and small pleural effusion. 08/11 CXR: This likely trace pleural effusions bilaterally. No focal consolidation is seen. Unchanged interstitial changes are noted throughout the mid and lower lungs. Unchanged left pneumothorax. 08/17 CXR: No evidence of pneumothorax, pleural effusion. Increased bibasilar airspace opacities. Treatment: Chest x-rays, 08/10 5L nasal cannula, 08/10 2L nasal cannula What relationship, if any, exists between the diagnosis of Iatrogenic pneumothorax and the procedure: [ x] Iatrogenic pneumothorax is a complication of surgical procedure [ ] Iatrogenic pneumothorax is an expected outcome of the surgical procedure [ ] Iatrogenic pneumothorax is related to patients co-morbid condition(s) of [insert co-morbid dxs] & not a complication of the procedure [ ] Other please specify ____ [ ] Unable to determine (Template Last Revised: August 2020) MTDD
--- NOTE | 2022-08-18 22:27 | P.PN ---
Subjective HISTORY OF PRESENT ILLNESS: The patient is a pleasant 67-year-old female patient who is known to our service from before with a past medical history significant for lower extremities peripheral arterial disease as well as severe COPD and chronic hypoxic respiratory failure on oxygen and also hypertension and dyslipidemia and history of multifocal atrial tachycardia. The patient presented to the hospital complaining of shortness of breath. The patient does have a baseline shortness of breath and she is on oxygen continuously at 2 L. For the last few days she has been experiencing increasing in the shortness of breath associated according to her and her with fever and cough productive of whitish sputum. Beside that she developed bilateral lower extremities edema. No symptoms of any chest pain or chest discomfort or dizziness or lightheadedness but she has been experiencing symptoms of heart racing and fluttering was no presyncope or syncope. The patient and her called ambulance and the patient was brought to the emergency department for further evaluation. She is known to have advanced COPD. Also she is known to have severe lower extremities PAD with a prior stenting of bilateral common iliacs and external iliacs and subsequently few weeks ago she underwent left femoral and left profunda endarterectomy with left femoral to tibial peroneal trunk bypass. She still does have a dressing on the left leg above the left knee because the incision has been healing very slowly. During this admission she underwent a workup including an EKG showing what it seems to be multifocal atrial tachycardia with differential diagnosis of atrial fibrillation and also she underwent cardiac enzymes showed mildly abnor mal troponin. The chest x-ray showed findings consistent with CHF. The rest of the blood work came in to be unremarkable. On examination she was in mild respiratory distress. She was also coughing during the examination. She does have bilateral expiratory wheezing and mild bilateral lower except his edema. Reviewing the vital signs revealed marginally low blood pressure with systolic pressure in the 90s. Currently she is on Cardizem IV and she is also on Lasix IV. 08/07/2022 Patient examined this morning at the bedside. She denies chest pain or pressure. She reports shortness of breath this morning. She states that her shortness of breath got worse overnight and they had to increase her oxygen. The patient remains on Lasix 20 mg IV every 12 hours. Telemetry reveals sinus mechanism with a heart rate in the 60s. 08/08/2022 Patient examined this morning at the bedside. Patient denies chest pain or pressure. She reports SOB. She remains on IV lasix. Blood pressure is stable. Echo reveals EF 55-60% 08/09/2022 Patient examined this morning at the bedside. Patient denies chest pain or pressure. She reports continued shortness of breath. Vital signs are stable. 08/18 Patient seen and examined. Patient had complications of pseudoaneurysm and therefore required to aneurysm repair and additionally has been on antibiotics. She admits to continued left lower extremity pain. She denies any chest pain however does admit to some chest pressure. Repeat troponin was drawn given c hest pressure however stable at 0.078, down from previous of 0.18. Cardiology was reconsult that secondary to recommendations for anticoagulation. There was initial concern of atrial fibrillation however no atrial fibrillation noted and patient having frequent runs of multifocal atrial tachycardia. PHYSICAL EXAM: VITAL SIGNS: Reviewed. GENERAL: Well-developed in no acute distress. NECK: Supple. No JVD or thyromegaly LUNGS: Respirations even and unlabored. Lungs diminished bilaterally HEART: Regular rate and rhythm. S1 and S2 heard. EXTREMITIES: Normal range of motion. No clubbing or cyanosis. Peripheral pulses intact. Trace lower extremity edema on the left. ASSESSMENT: Shortness of breath Acute COPD exacerbation Bilateral pneumonia Acute on chronic heart failure with preserved ejection fraction, EF 50-55% in 2020, repeat echo EF 55-60% Multifocal atrial tachycardia, currently maintaining sinus mechanism Hypertension Hyperlipidemia Peripheral arterial disease Recent left lower extremity revascularization with open wounds PLAN: Patient with significant anemia and currently no indications for full dose anticoagulation for any atrial fibrillation. Only other focal atrial tachycardia noted. Patient has been on Compass trial dosing of Xarelto 2.5mg bid for PAD and would defer to vascular surgery for recommendations for Xarelto for PAD and no cardiac indications. Atypical chest pain however minimally elevated troponins, likely type 2 mechanism. If continues to have chest pain, may consider ischemic workup of cath however continue with current supportive care for now. Objective - Vital Signs Vital signs: Vital Signs Temp 98.2 F 08/18/22 20:00 Pulse 77 08/18/22 20:43 Resp 14 08/18/22 20:00 BP 137/60 08/18/22 20:00 Pulse Ox 90 L 08/18/22 20:00 FiO2 Intake & Output 08/18/22 08/18/22 08/19/22 06:59 18:59 06:59 Intake Total 718 Output Total 410 537 400 Balance -410 181 -400 Intake: Oral 718 Output: Drainage 10 12 Left Groin 10 12 Urine 400 525 400 Other: Voiding Method Indwelling Catheter Indwelling Catheter Indwelling Catheter - Labs CBC & Chem 7: 08/18/22 07:24 08/18/22 07:24 Labs: Abnormal Lab Results - Last 24 Hours (Table) 08/18/22 08/18/22 08/18/22 Range/Units 07:24 07:24 12:25 WBC 12.7 H (3.8-10.6) k/uL RBC 2.75 L (3.80-5.40) m/uL Hgb 8.6 L (11.4-16.0) gm/dL Hct 26.1 L (34.0-46.0) % RDW 16.4 H (11.5-15.5) % Neutrophils # 11.4 H (1.3-7.7) k/uL Lymphocytes # 0.6 L (1.0-4.8) k/uL Potassium 3.3 L (3.5-5.1) mmol/L Chloride 95 L (98-107) mmol/L Carbon Dioxide 45 H* (22-30) mmol/L BUN 27 H (7-17) mg/dL Creatinine 0.46 L (0.52-1.04) mg/dL Calcium 8.3 L (8.4-10.2) mg/dL Troponin I 0.078 H* (0.000-0.034) ng/mL Microbiology - Last 24 Hours (Table) 08/15/22 16:36 Anaerobic Culture - Preliminary Groin
--- NOTE | 2022-08-18 23:29 | P.PN ---
Subjective Progress Note Date: 08/17/22 67-year-old female patient; past medical history significant for lower extremities peripheral arterial disease as well as severe COPD and chronic hypoxic respiratory failure on oxygen and also hypertension and dyslipidemia and history of multifocal atrial tachycardia, presented to the hospital complaining of shortness of breath. The patient does have a baseline shortness of breath and she is on oxygen continuously at 2 L. For the last few days she has been experiencing increasing in the shortness of breath associated according to her and her with fever and cough productive of whitish sputum. Beside that she developed bilateral lower extremities edema. No symptoms of any chest pain or chest discomfort or dizziness or lightheadedness but she has been experiencing symptoms of heart racing and fluttering was no presyncope or syncope. The patient and her called ambulance and the patient was brought to the emergency department for further evaluation. During this admission she underwent a workup including an EKG showing what it seems to be multifocal atrial tachycardia with differential diagnosis of atrial fibrillation and also she underwent cardiac enzymes showed mildly abnormal troponin. The chest x-ray showed findings consistent with CHF. The rest of the blood work came in to be unremarkable. On examination she was in mild respiratory distress. She was also coughing during the examination. She does have bilateral expiratory wheezing and mild bilateral lower except his edema. Reviewing the vital signs revealed marginally low blood pressure with systolic pressure in the 90s. Currently she is on Cardizem IV and she is also on Lasix IV. 08/07/2022 This is a pleasant 67 years old female with multiple medical problems who was admitted initially because of dyspnea found to have acute CHF exacerbation and also she has evidence of bilateral pneumonia, she had a fever of 101.3 on admission. She still feels generally weak and tired, mildly tachypneic. Been followed by cardiology and infectious disease dating with positive blood culture for pseudomonas. And covered with abdomen Lasix 20 mg, IV Zosyn. Also she has history of COPD with chronic hypoxic respiratory failure on 2 L of oxygen at home, currently she is using before liters per minute. She has some evidence of diminished air entry in both sides under going to start prednisone 40 mg daily. She is on home dose of 0.5 mg twice a day for paroxysmal atrial fibrillation. Also she is on aspirin 325 mg. also patient follow up with Dr. Curran reported recent revascularizations surgery for his left lower extremity vascular disease, she still Dr. Curran last week and was doing well, she supposed to see him today so he was consulted 08/08/2022 Patient awake and alert, she still have little short of breath and tachypnea, however she feels better. Her cough feels better bleeding looks the same, she still have exertional dyspnea with walking. She still feels generally weak. States to have limited air entry on both lung sewell, no more fever and vitals are stable. Her abdomen Lasix switched to oral pills. Property Maintenance Technician on the case and she was kept on Xarelto and metoprolol and Cardizem for her A. fib, Patient also have evidence with pseudomonas bacteremia, source could be pneumo gisella versus left lower extremity wound, culture is been followed closely. Patient is covered with Zosyn. Infectious disease team on the case. 08/09/2022 Patient states that her leg feels better today, she still complaining of from shortness of breath although she has this wheezing and better air entry limitations to there. Also ultrasound showing bilateral pleural effusion. Vitals are stable. Patient remains on Zosyn, prednisone 40 mg and oral Lasix 20 mg twice daily. 08/10/2022 Patient is still improving slowly and gradually regarding her pneumonia, she sent in bed most of the time, she has recovered is improving with Robitussin-DM which is continued. Chest x-ray from today show significant improvement compared to a few days ago. She underwent a thoracocentesis with 250 mL of turbid fluid removed. Sputum culture is growing Pseudomonas same as blood culture, patient is currently co ilana with Zosyn. Also she is on a prednisone 40 mg for her possible COPD element. Cardiology team already signed off with recommendation to follow up with Dr. Stewart as an outpatient. 08/11/2022 Patient today awake alert, she still feels short of breath although reports some improvement, she has weak cough and difficult to bring in her phlegm up. Also she's been complaining from bleeding from her left groin area. A sputum culture blood culture both grown Pseudomonas, she underwent thoracocentesis and cytology is pending, she did have some pneumothorax, pulmonary team on the case, her breathing is a stable and actually is improving. Vascular surgery on the case and 0 to was put on hold because of bleeding from the surgical site of her left leg. She kept on prednisone 40 mg as per a burst taper as well as Zosyn. Surgical consult is on the case Patient remains critical. 08/12/2021 Patient had actually looks much better today compared to yesterday, she is more relaxed and pleasant she still have some dyspnea, her coughing is stronger than yesterday as well. She still hemodynamically stable. Oxygenation is improving. Yesterday she had bleeding from her left groin wound related to vascular surgery, no more bleeding today. Result is on hold. Patient remains on Zosyn Cytology is still pending 08/13/2022 Patient is improving slowly and gradually, her dyspnea significantly improved o stephy the last 2 days, although no much difference between yesterday and today. Her cough is better as well. Also bleeding on her left groin has stopped, though remains on hold. Vascular surgery on the case. She remains on Zosyn and Protonix, also has a prednisone 40 mg burst taper. Also on oral Lasix 20 mg twice daily. 08/14/2022 Patient is currently resting in bed. Awake alert and oriented x3. Breathing status is better. Currently requiring 2 L oxygen via nasal cannula. On treatment for Pseudomonas pneumonia and Pseudomonas bacteremia with Zosyn. Otherwise patient was noticed to have bleeding from the left groin and had a recent left elective revascularization. CT of the lower extremity was done which showed there is evidence of large pseudoaneurysm of the femoral artery in the left groin. There is a large hematoma in the left groin. Subcutaneous edema lateral to the left hip. Appears to be significant occlusive disease in the left femoral artery and collateral flow with reconstituted tibial arteries below the knee. The iliac artery bypass graft which appears patent. Laboratory data showed WBC 11.8 hemoglobin 8.4 and platelets 271 Sodium 142 potassium 4.0 chloride 97 bicarb is 43 BUN 25 and creatinine 0.36 and blood sugar is 119. Pulmonary, ID and vascular surgery is on board. Pleural fluid cytology on 08/10/2022 showed reactive mesothelial cells., Macrophages and mixed inflammatory cells. No cytologically malignant cells identified. 08/15/2022 Patient is currently resting in bed. Awake alert and oriented x3. Requiring 2 L oxygen via nasal cannula. Breathing status is much improved. Patient is scheduled for Large pseudoaneurysm of the femoral artery and hematoma in the left groin. Vascular surgery and pulmonary is on board. Patient is getting 1 unit of PRBC prior to surgery. Anticoagulation is on hold. Laboratory data showed WBC 11.8 hemoglobin 8.4 and platelets 271 Sodium 142 potassium 4.0 chloride 97 bicarb is 43 BUN 25 creatinine 0.36 and blood sugar is 119. Patient is on antibiotics in the form of Zosyn. ID is on board. 08/16/2022 Patient is currently resting in bed. Awake alert and oriented x3. Requiring 2 L oxygen via nasal cannula. Remains on antibiotics of Zosyn. Otherwise patient underwent repair of pseudoaneurysm of the left femoral artery and evacuation of hematoma. RAJESH drain is in place with serosanguineous discharge. No complaints of fever or chills. No nausea vomiting abdominal pain or diarrhea. Laboratory data showed WBC 18.8 hemoglobin 9.2 and platelets 185 sodium 139 potassium 3.9 chloride 99 bicarb is 41 BUN 30 and creatinine 0.45 Vascular surgery, pulmonary and ID is on board. 08/17/2022 Patient is currently lying in the bed. Awake alert and oriented x3. Requiring 3 L oxygen via nasal cannula. No complaint of chest pain or worsening shortness of breath. Patient has been afebrile. Left lower extremity/groin surgical site is bandaged and RAJESH drain in place. Wound VAC. Chest x-ray showed bibasilar airspace opacities concerning for pneumonia. COPD changes. Patient is being continued on Zosyn. Laboratory data showed WBC trending down to 17.7 hemoglobin 9.0 and platelets 132 sodium 140 potassium 3.6 chloride 96 bicarb is 42 BUN 35 and creatinine 0.5 and calcium 8.1. Pulmonary, vascular surgery and ID is on board. Current medications reviewed. Objective - Vital Signs Vital signs: Vital Signs Temp 97.7 F 08/17/22 15:36 Pulse 75 08/17/22 20:52 Resp 18 08/17/22 15:36 BP 104/52 08/17/22 15:36 Pulse Ox 98 08/17/22 15:36 FiO2 Intake & Output 08/17/22 08/17/22 08/18/22 06:59 18:59 06:59 Intake Total 576 Output Total 290 361 Balance -290 215 Intake: Oral 576 Output: Drainage 40 11 Left Groin 40 11 Urine 250 350 Other: Voiding Method Indwelling Catheter Indwelling Catheter # Bowel Movements 0 - Exam - Exam -GENERAL: The patient is alert and oriented x3, not in any acute distress. Well developed, well nourished. Generally weak HEENT: Pupils are round and equally reacting to light. EOMI. No scleral icterus. No conjunctival pallor. Normocephalic, atraumatic. No pharyngeal erythema. No thyromegaly. CARDIOVASCULAR: S1 and S2 present. No murmurs, rubs, or gallops. -PULMONARY: Bilateral coarse breath sounds., no wheezing or crackles. Decreased air entry on both sides ABDOMEN: Soft, nontender, nondistended, normoactive bowel sounds. No palpable organomegaly. Left groin surgical site with RAJESH drain in place. Left groin pressure bandage in place. MUSCULOSKELETAL: No joint swelling or deformity. -EXTREMITIES: No cyanosis, clubbing, or pedal edema. NEUROLOGICAL: Gross neurological examination did not reveal any focal deficits. SKIN: No rashes. no petechiae. - Labs CBC & Chem 7: 08/18/22 07:24 08/18/22 07:24 Labs: Abnormal Lab Results - Last 24 Hours (Table) 08/17/22 08/17/22 Range/Units 09:16 09:16 WBC 17.7 H (3.8-10.6) k/uL RBC 2.83 L (3.80-5.40) m/uL Hgb 9.0 L (11.4-16.0) gm/dL Hct 26.9 L (34.0-46.0) % RDW 16.4 H (11.5-15.5) % Plt Count 132 L (150-450) k/uL Neutrophils # 16.3 H (1.3-7.7) k/uL Lymphocytes # 0.4 L (1.0-4.8) k/uL Chloride 96 L (98-107) mmol/L Carbon Dioxide 42 H* (22-30) mmol/L BUN 35 H (7-17) mg/dL Creatinine 0.50 L (0.52-1.04) mg/dL Glucose 150 H (74-99) mg/dL Calcium 8.1 L (8.4-10.2) mg/dL Microbiology - Last 24 Hours (Table) 08/15/22 16:36 Gram Stain - Final Groin Wound Culture - Final Pseudomonas aeruginosa Assessment and Plan Assessment: -Bilateral pneumonia secondary to pseudomonas. Status post left thoracocentesis with 50 mL of turbid fluid removed on 3/9. Fluid cytology showed no malignant cells. -Pseudomonas bacteremia -Large left groin pseudoaneurysm with recent history of left lower extremity revascularization. -Pseudoaneurysm left femoral artery, left groin hematoma. S/p repair and evacuation of hematoma on 08/15/2022. -Mild acute blood loss anemia -Acute CHF exacerbation -Paroxysmal atrial fibrillation's with elevated troponin -Acute COPD exacerbation -Moderate left pneumothorax -Acute on chronic hypoxic respiratory failure -Cyanosis present on admission with fever and leukocytosis -Peripheral vascular disease status post recent revascularization of the left lower extremity with open wound, with bleeding from one side and hematoma of the left groin Plan: S/p repair of Pseudoaneurysm and evacuation of hematoma on 08/15/2022. Continue with Zosyn Patient was started back on Xarelto today. Continue with prednisone burst taper and breathing treatment Continue with oral Lasix, pulmonary, vascular surgeon and infectious disease consult DVT prophylaxis: Xeralto (on hold) c/w mechanical GI Prophylaxis: Ppi PT/OT: Pending Prognosis is guarded Time with Patient: Greater than 30
[2022-08-19] MEDS: HYDROmorphone 0.5 MG/0.5 ML SYRINGE IVP PRN ×4 (03:40→23:29)
[2022-08-19] MEDS: CEFEPIME 2 GM in SODIUM CHLORIDE 0.9% 100 ML IVPB SCH ×3 (03:46→21:13)
--- NOTE | 2022-08-19 05:27 | P.PN ---
Subjective Progress Note Date: 08/18/22 67-year-old female patient; past medical history significant for lower extremities peripheral arterial disease as well as severe COPD and chronic hypoxic respiratory failure on oxygen and also hypertension and dyslipidemia and history of multifocal atrial tachycardia, presented to the hospital complaining of shortness of breath. The patient does have a baseline shortness of breath and she is on oxygen continuously at 2 L. For the last few days she has been experiencing increasing in the shortness of breath associated according to her and her with fever and cough productive of whitish sputum. Beside that she developed bilateral lower extremities edema. No symptoms of any chest pain or chest discomfort or dizziness or lightheadedness but she has been experiencing symptoms of heart racing and fluttering was no presyncope or syncope. The patient and her called ambulance and the patient was brought to the emergency department for further evaluation. During this admission she underwent a workup including an EKG showing what it seems to be multifocal atrial tachycardia with differential diagnosis of atrial fibrillation and also she underwent cardiac enzymes showed mildly abnormal troponin. The chest x-ray showed findings consistent with CHF. The rest of the blood work came in to be unremarkable. On examination she was in mild respiratory distress. She was also coughing during the examination. She does have bilateral expiratory wheezing and mild bilateral lower except his edema. Reviewing the vital signs revealed marginally low blood pressure with systolic pressure in the 90s. Currently she is on Cardizem IV and she is also on Lasix IV. 08/07/2022 This is a pleasant 67 years old female with multiple medical problems who was admitted initially because of dyspnea found to have acute CHF exacerbation and also she has evidence of bilateral pneumonia, she had a fever of 101.3 on admission. She still feels generally weak and tired, mildly tachypneic. Been followed by cardiology and infectious disease dating with positive blood culture for pseudomonas. And covered with abdomen Lasix 20 mg, IV Zosyn. Also she has history of COPD with chronic hypoxic respiratory failure on 2 L of oxygen at home, currently she is using before liters per minute. She has some evidence of diminished air entry in both sides under going to start prednisone 40 mg daily. She is on home dose of 0.5 mg twice a day for paroxysmal atrial fibrillation. Also she is on aspirin 325 mg. also patient follow up with Dr. Curran reported recent revascularizations surgery for his left lower extremity vascular disease, she still Dr. Curran last week and was doing well, she supposed to see him today so he was consulted 08/08/2022 Patient awake and alert, she still have little short of breath and tachypnea, however she feels better. Her cough feels better bleeding looks the same, she still have exertional dyspnea with walking. She still feels generally weak. States to have limited air entry on both lung sewell, no more fever and vitals are stable. Her abdomen Lasix switched to oral pills. [facility] [employer] on the case and she was kept on Xarelto and metoprolol and Cardizem for her A. fib, Patient also have evidence with pseudomonas bacteremia, source could be pneu monia versus left lower extremity wound, culture is been followed closely. Patient is covered with Zosyn. Infectious disease team on the case. 08/09/2022 Patient states that her leg feels better today, she still complaining of from shortness of breath although she has this wheezing and better air entry limitations to there. Also ultrasound showing bilateral pleural effusion. Vitals are stable. Patient remains on Zosyn, prednisone 40 mg and oral Lasix 20 mg twice daily. 08/10/2022 Patient is still improving slowly and gradually regarding her pneumonia, she sent in bed most of the time, she has recovered is improving with Robitussin-DM which is continued. Chest x-ray from today show significant improvement compared to a few days ago. She underwent a thoracocentesis with 250 mL of turbid fluid removed. Sputum culture is growing Pseudomonas same as blood culture, patient is currently covered with Zosyn. Also she is on a prednisone 40 mg for her possible COPD element. Cardiology team already signed off with recommendation to follow up with Dr. Stewart as an outpatient. 08/11/2022 Patient today awake alert, she still feels short of breath although reports some improvement, she has weak cough and difficult to bring in her phlegm up. Also she's been complaining from bleeding from her left groin area. A sputum culture blood culture both grown Pseudomonas, she underwent thoracocentesis and cytology is pending, she did have some pneumothorax, pulmonary team on the case, her breathing is a stable and actually is improving. Vascular surgery on the case and 0 to was put on hold because of bleeding from the surgical site of her left leg. She kept on prednisone 40 mg as per a burst taper as well as Zosyn. Surgical consult is on the case Patient remains critical. 08/12/2021 Patient had actually looks much better today compared to yesterday, she is more relaxed and pleasant she still have some dyspnea, her coughing is stronger than yesterday as well. She still hemodynamically stable. Oxygenation is improving. Yesterday she had bleeding from her left groin wound related to vascular surgery, no more bleeding today. Result is on hold. Patient remains on Zosyn Cytology is still pending 08/13/2022 Patient is improving slowly and gradually, her dyspnea significantly improved over the last 2 days, although no much difference between yesterday and today. Her cough is better as well. Also bleeding on her left groin has stopped, though remains on hold. Vascular surgery on the case. She remains on Zosyn and Protonix, also has a prednisone 40 mg burst taper. Also on oral Lasix 20 mg twice daily. 08/14/2022 Patient is currently resting in bed. Awake alert and oriented x3. Breathing status is better. Currently requiring 2 L oxygen via nasal cannula. On treatment for Pseudomonas pneumonia and Pseudomonas bacteremia with Zosyn. Otherwise patient was noticed to have bleeding from the left groin and had a recent left elective revascularization. CT of the lower extremity was done which showed there is evidence of large pseudoaneurysm of the femoral artery in the left groin. There is a large hematoma in the left groin. Subcutaneous edema lateral to the left hip. Appears to be significant occlusive disease in the left femoral artery and collateral flow with reconstituted tibial arteries below the knee. The iliac artery bypass graft which appears patent. Laboratory data showed WBC 11.8 hemoglobin 8.4 and platelets 271 Sodium 142 potassium 4.0 chloride 97 bicarb is 43 BUN 25 and creatinine 0.36 and blood sugar is 119. Pulmonary, ID and vascular surgery is on board. Pleural fluid cytology on 08/10/2022 showed reactive mesothelial cells., Macrophages and mixed inflammatory cells. No cytologically malignant cells identified. 08/15/2022 Patient is currently resting in bed. Awake alert and oriented x3. Requiring 2 L oxygen via nasal cannula. Breathing status is much improved. Patient is scheduled for Large pseudoaneurysm of the femoral artery and hematoma in the left groin. Vascular surgery and pulmonary is on board. Patient is getting 1 unit of PRBC prior to surgery. Anticoagulation is on hold. Laboratory data showed WBC 11.8 hemoglobin 8.4 and platelets 271 Sodium 142 potassium 4.0 chloride 97 bicarb is 43 BUN 25 creatinine 0.36 and blood sugar is 119. Patient is on antibiotics in the form of Zosyn. ID is on board. 08/16/2022 Patient is currently resting in bed. Awake alert and oriented x3. Requiring 2 L oxygen via nasal cannula. Remains on antibiotics of Zosyn. Otherwise patient underwent repair of pseudoaneurysm of the left femoral artery and evacuation of hematoma. RAJESH drain is in place with serosanguineous discharge. No complaints of fever or chills. No nausea vomiting abdominal pain or diarrhea. Laboratory data showed WBC 18.8 hemoglobin 9.2 and platelets 185 sodium 139 potassium 3.9 chloride 99 bicarb is 41 BUN 30 and creatinine 0.45 Vascular surgery, pulmonary and ID is on board. 08/18/2022 Patient is seen and evaluated in follow-up with multiple medical consultations following. Infectious disease following an patient is maintained on IV antibiotics and being transitioned IV cefepime. Gram stain showing pseudomonas aeruginosa and patient will be receiving a PICC line today for outpatient IV antibiotic therapy. Case management following as patient was reporting that she was going to [facility] although family and patient would like to go to [facility]. Patient has been accepted although awaiting for clearance of consultations. Vascular surgery following as well and to continue with wound care along with dressing which is in place and draining and close outpatient follow-up. Patient continues to report significant pain requiring IV pain medication as well as significant weakness and difficulty with ambulation with physical therapy following closely. WBC is trending down and currently 12.7 today, hemoglobin is stable at 8.6, potassium is 3.3 and will replace per protocol, patient is report ing of some chest pain and shortness of breath and troponins are trending down. Patient is being followed closely by pulmonary continued on prednisone along with breathing treatment and will continue. Recommend PT/OT therapy daily and increased activity as tolerated. Patient encouraged to continue with exercises well in bed as well and continued movement this patient is becoming more significantly weak each day she is here. Review of systems: Constitutional: No reports of fatigue, fever, or chills Cardiovascular: No reports of chest pain or palpitations Respiratory: No reports of worsening shortness of breath GI: No reports of nausea, vomiting, or diarrhea : No reports of dysuria or retention Neurovascular: reports of generalized weakness All medications have been reviewed . Active Medications Hydrocodone Bitart/Acetaminophen (Hydrocodone/Apap 5-325mg 1 Each Tab) 1 each PO Q6HR PRN PRN Reason: Pain Scale 6 to 10 Last Admin: 08/18/22 12:02 Dose: 1 each Albuterol Sulfate (Albuterol Nebulized 2.5 Mg/3 Ml) 2.5 mg INHALATION RT-TID [facility] Last Admin: 08/18/22 12:19 Dose: 2.5 mg Alprazolam (Alprazolam 0.25 Mg Tab) 0.25 mg PO BID PRN PRN Reason: Anxiety Aspirin (Aspirin 81 Mg) 81 mg PO DAILY [facility] Last Admin: 08/18/22 09:39 Dose: 81 mg Atorvastatin Calcium (Atorvastatin 80 Mg Tab) 80 mg PO HS [facility] Last Admin: 08/17/22 21:09 Dose: 80 mg Calcium Carbonate/Glycine (Calcium Carbonate 500 Mg Chewable) 1,000 mg PO QID PRN PRN Reason: Heartburn Last Admin: 08/13/22 17:10 Dose: 1,000 mg Cholecalciferol (Cholecalciferol 25 Mcg (1000 Iu) Tablet) 50 mcg PO DAILY [facility] Last Admin: 08/18/22 09:39 Dose: 50 mcg Collagenase (Collagenase 250 Unit/Gm Ointment 30 Gm Tube) 1 applic TOPICAL DAILY [facility]; Protocol Last Admin: 08/18/22 09:59 Dose: Not Given Diltiazem HCl (Diltiazem Oral 30 Mg Tab) 30 mg PO TID [facility] Last Admin: 08/18/22 09:39 Dose: 30 mg Docusate Sodium (Docusate 100 Mg Cap) 100 mg PO DAILY [facility] Last Admin: 08/18/22 09:40 Dose: 100 mg Furosemide (Furosemide 20 Mg Tab) 20 mg PO BID@0900,1600 [facility] Last Admin: 08/18/22 07:44 Dose: 20 mg Gabapentin (Gabapentin 300 Mg Cap) 300 mg PO TID [facility] Last Admin: 08/18/22 09:40 Dose: 300 mg Guaifenesin/Dextromethorphan (Guaifenesin-Dm 600/30mg 1 Each Tab.Er.12h) 2 each PO Q12HR [facility] Last Admin: 08/18/22 09:40 Dose: 2 each Hydromorphone HCl (Hydromorphone 0.5 Mg/0.5 Ml Syringe) 0.5 mg IVP Q3HR PRN PRN Reason: Pain Last Admin: 08/18/22 08:40 Dose: 0.5 mg Hydroxychloroquine Sulfate (Hydroxychloroquine Sulfate 200 Mg Tab) 200 mg PO BID [facility] Last Admin: 08/18/22 09:40 Dose: 200 mg Sodium Chloride (Saline 0.9%) 1,000 mls @ 20 mls/hr IV .Q24H [facility] Last Admin: 08/18/22 07:44 Dose: 20 mls/hr Cefepime HCl 2 gm/ Sodium (Chloride) 100 mls @ 25 mls/hr IVPB Q8H [facility]; Protocol Last Admin: 08/18/22 11:52 Dose: 25 mls/hr Letrozole (Letrozole 2.5 Mg Tab) 2.5 mg PO DAILY [facility] Last Admin: 08/18/22 09:40 Dose: 2.5 mg Metoprolol Tartrate (Metoprolol Tartrate 25 Mg Tab) 25 mg PO BID [facility] Last Admin: 08/18/22 09:40 Dose: 25 mg Miscellaneous Information (Potassium Replacement Protocol 1 Each Misc) 1 each MISCELLANE DAILY PRN; Protocol PRN Reason: Per Protocol Non-Formulary Medication (Fluticasone Propion/Salmeterol [Advair 500-50 Diskus]) 1 puff INHALATION RT-BID [facility] Last Admin: 08/18/22 08:31 Dose: 1 puff Pantoprazole Sodium (Pantoprazole 40 Mg Tablet) 40 mg PO AC-BID [facility] Last Admin: 08/18/22 05:22 Dose: 40 mg Prednisone (Prednisone 20 Mg Tab) 40 mg PO DAILY [facility] Last Admin: 08/18/22 09:41 Dose: 40 mg Promethazine HCl (Promethazine 25 Mg Tab) 12.5 mg PO Q6HR PRN PRN Reason: Nausea And Vomiting Rivaroxaban (Rivaroxaban 2.5 Mg Tablet) 2.5 mg PO BID [facility]; Protocol Last Admin: 08/18/22 09:41 Dose: 2.5 mg Tiotropium Brilliant (Tiotropium 2.5 Mcg Inhaler) 2 puff INHALATION RT-DAILY [facility] Last Admin: 08/18/22 08:31 Dose: 2 puff Physical exam: GENERAL: The patient is alert and oriented x3, not in any acute distress. Thin built, elderly appearing. Generally weak HEENT: Pupils are round and equally reacting to light. EOMI. No scleral icterus. No conjunctival pallor. Normocephalic, atraumatic. No pharyngeal erythema. No thyromegaly. CARDIOVASCULAR: S1 and S2 present. No murmurs, rubs, or gallops. PULMONARY: Chest is clear to auscultation, no wheezing or crackles. Decreased air entry on both sides ABDOMEN: Soft, nontender, nondistended, normoactive bowel sounds. No palpable organomegaly. Left groin surgical site with RAJESH drain in place. Left groin pressure bandage in place. MUSCULOSKELETAL: No joint swelling or deformity. EXTREMITIES: No cyanosis, clubbing, or pedal edema. NEUROLOGICAL: Gross neurological examination did not reveal any focal deficits. Diffusely weak SKIN: No rashes. no petechiae. Assessment: -Bilateral pneumonia secondary to pseudomonas. Status post left thoracocentesis with 50 mL of turbid fluid removed on 08/10. Fluid cytology showed no malignant cells. -Pseudomonas bacteremia -Large left groin pseudoaneurysm with recent history of left lower extremity revascularization. -Pseudoaneurysm left femoral artery, left groin hematoma. S/p repair and evacuation of hematoma on 08/15/2022. -Mild acute blood loss anemia secondary to above -Acute CHF exacerbation -Paroxysmal atrial fibrillation's with elevated troponin -Acute COPD exacerbation -Moderate left pneumothorax -Acute on chronic hypoxic respiratory failure -Cyanosis present on admission with fever and leukocytosis -Peripheral vascular disease status post recent revascularization of the left lower extremity with open wound, with bleeding from one side and hematoma of the left groin Plan: S/p repair of Pseudoaneurysm and evacuation of hematoma on 08/15/2022. Continue with cefepime per ID recommendations and patient will require PICC line and continue on antibiotic therapy Xeralto being resumed Continue with prednisone burst taper and breathing treatment Continue with oral Lasix, pulmonary, vascular surgeon and infectious disease following and appreciate input and recommendations. DVT prophylaxis: Xeralto GI Prophylaxis: Ppi PT/OT: Evaluating the patient recommending rehab patient is agreeable initially thought to be going inpatient rehab although patient feeling like to go to [facility] Recommend close monitoring and continuing with pain management and local wound care Due to multiple complex medical issues, Prognosis is guarded The impression and plan of care has been dictated by Roslyn Desai, Nurse Practitioner as directed. Dr. Michaelle MD I have performed a history and examination and MDM of this patient, discussed the same with the dictator, and agree with the dictator's assessment and plan as written ,documented as a scribe. Based on total visit time, I have performed more than 50% of the visit. Objective - Vital Signs Vital signs: Vital Signs Temp 96.5 F L 08/18/22 12:10 Pulse 74 08/18/22 12:33 Resp 24 08/18/22 12:10 BP 99/49 08/18/22 12:10 Pulse Ox 91 L 08/18/22 12:10 FiO2 Intake & Output 08/17/22 08/18/22 08/18/22 18:59 06:59 18:59 Intake Total 576 478 Output Total 361 410 329 Balance 215 -410 149 Intake: Oral 576 478 Output: Drainage 11 10 4 Left Groin 11 10 4 Urine 350 400 325 Other: Voiding Method Indwelling Catheter Indwelling Catheter Indwelling Catheter # Bowel Movements 0 - Labs CBC & Chem 7: 08/18/22 07:24 08/18/22 07:24 Labs: Abnormal Lab Results - Last 24 Hours (Table) 08/18/22 08/18/22 08/18/22 Range/Units 07:24 07:24 12:25 WBC 12.7 H (3.8-10.6) k/uL RBC 2.75 L (3.80-5.40) m/uL Hgb 8.6 L (11.4-16.0) gm/dL Hct 26.1 L (34.0-46.0) % RDW 16.4 H (11.5-15.5) % Neutrophils # 11.4 H (1.3-7.7) k/uL Lymphocytes # 0.6 L (1.0-4.8) k/uL Potassium 3.3 L (3.5-5.1) mmol/L Chloride 95 L (98-107) mmol/L Carbon Dioxide 45 H* (22-30) mmol/L BUN 27 H (7-17) mg/dL Creatinine 0.46 L (0.52-1.04) mg/dL Calcium 8.3 L (8.4-10.2) mg/dL Troponin I 0.078 H* (0.000-0.034) ng/mL Microbiology - Last 24 Hours (Table) 08/15/22 16:36 Anaerobic Culture - Preliminary Groin 08/15/22 16:36 Gram Stain - Final Groin Wound Culture - Final Pseudomonas aeruginosa
[2022-08-19] MEDS: HYDROcodone/APAP 5-325MG 1 EACH TAB PO PRN ×2 (06:55→12:16)
[2022-08-19] MEDS: PANTOPRAZOLE 40 MG TABLET PO SCH ×2 (06:55→16:11)
[2022-08-19 07:46] LABS: Anisocytosis Slight; Basophils % (A) 0 %; Eosinophils # (A) 0.1 k/uL (0-0.7); Eosinophils % (A) 1 %; HCT 27.6 % (34.0-46.0); HGB 8.8 gm/dL (11.4-16.0); Hypochromasia Moderate; Lymphocytes # (A) 0.7 k/uL (1.0-4.8); Lymphocytes % (A) 5 %; MCH 30.9 pg (25.0-35.0); MCHC 31.8 g/dL (31.0-37.0); MCV 97.3 fL (80.0-100.0); Macrocytosis Slight; Mean Platelet Volume 8.9; Monocytes # (A) 0.6 k/uL (0-1.0); Monocytes % (A) 4 %; Neutrophils # (A) 11.9 k/uL (1.3-7.7); Neutrophils % (A) 89 %; Platelet Count 186 k/uL (150-450); Poikilocytosis Moderate; RBC 2.84 m/uL (3.80-5.40); RDW 16.4 % (11.5-15.5); WBC 13.3 k/uL (3.8-10.6)
[2022-08-19] MEDS: TIOTROPIUM 2.5 MCG INHALER INHALATION SCH (07:57)
[2022-08-19] MEDS: ALBUTEROL NEBULIZED 2.5 MG/3 ML INHALATION SCH ×3 (07:57→20:28)
[2022-08-19] MEDS: NON FORMULARY DRUG (Fluticasone Propion/Salmeterol [Advair 500-50 Diskus] 1 EACH Blst.W.De INHALATION SCH ×2 (07:58→20:28)
[2022-08-19 08:00] LABS: African American GFR (CKD) >90 (>60 ml/min/1.73 sqM); Blood Urea Nitrogen 25 mg/dL (7-17); Calcium 8.3 mg/dL (8.4-10.2); Chloride 95 mmol/L (98-107); Glucose 85 mg/dL (74-99); Non-African American GFR(CKD) >90 (>60 ml/min/1.73 sqM); Sodium 140 mmol/L (137-145)
[2022-08-19 08:18] LABS: Anion Gap -4 mmol/L; Carbon Dioxide 49 mmol/L (22-30)
[2022-08-19 08:31] LABS: C Reactive Protein 1.2 mg/dL (<1.0)
[2022-08-19] MEDS: RIVAROXABAN 2.5 MG TABLET PO SCH ×2 (09:18→23:05)
[2022-08-19] MEDS: METOPROLOL TARTRATE 25 MG TAB PO SCH ×2 (09:19→21:10)
[2022-08-19] MEDS: guaiFENesin-DM 600/30MG 1 EACH TAB.ER.12H PO SCH ×2 (09:19→21:10)
[2022-08-19] MEDS: ASPIRIN 81 MG PO SCH (09:19)
[2022-08-19] MEDS: DOCUSATE 100 MG CAP PO SCH (09:19)
[2022-08-19] MEDS: HYDROXYCHLOROQUINE SULFATE 200 MG TAB PO SCH ×2 (09:19→21:11)
[2022-08-19] MEDS: GABAPENTIN 300 MG CAP PO SCH ×3 (09:19→21:10)
[2022-08-19] MEDS: CHOLECALCIFEROL 25 MCG (1000 IU) TABLET PO SCH (09:19)
[2022-08-19] MEDS: FUROSEMIDE 20 MG TAB PO SCH ×2 (09:19→16:11)
[2022-08-19] MEDS: LETROZOLE 2.5 MG TAB PO SCH (09:19)
[2022-08-19] MEDS: DILTIAZEM ORAL 30 MG TAB PO SCH ×3 (09:19→21:10)
[2022-08-19] MEDS: predniSONE 20 MG TAB PO SCH (09:19)
--- NOTE | 2022-08-19 09:24 | P.PN ---
Subjective Progress Note Date: 08/19/22 Principal diagnosis: Left femoral artery pseudoaneurysm and repair Patient was seen and examined today as a follow-up. She states she has pain on the medial and lateral sides of her left foot. She states is controlled with pain medication. She has good sensorimotor in her foot. Overnight she states the prevena suction stopped. She states she is feeling run down and fatigued. She is to have physical therapy work with her again today. Objective - Vital Signs Vital signs: Vital Signs Temp 97.7 F 08/19/22 03:38 Pulse 77 08/19/22 08:15 Resp 14 08/19/22 03:38 BP 104/55 08/19/22 03:38 Pulse Ox 96 08/19/22 08:00 FiO2 Intake & Output 08/18/22 08/19/22 08/19/22 18:59 06:59 18:59 Intake Total 718 0 Output Total 537 715 Balance 181 -715 0 Intake: Oral 718 0 Output: Drainage 12 15 Left Groin 12 15 Urine 525 700 Other: Voiding Method Indwelling Catheter Indwelling Catheter Indwelling Catheter # Bowel Movements 0 - Exam General appearance: The patient is alert, oriented, appears in no acute distress. HET: Head is normocephalic and atraumatic. Pupils are equal and reactive. Neck: Supple without lymphadenopathy. Trachea midline. Extremities: Left groin with Prevena dressing in place not on suction but good suction after turning back on, RAJESH drain with approximately 5 ml serosanguineous drainage. Left lower extremity dressing clean dry and intact, no foul odor. Pa lpable bypass graft. Doppler signal left PT and DP. Sensorimotor intact. Tender to palpation along the medial and lateral aspect of left foot. Foot and toes cool to touch, ankle and above warm. Neurological: No focal deficits. - Labs CBC & Chem 7: 08/19/22 06:33 08/19/22 06:33 Labs: Abnormal Lab Results - Last 24 Hours (Table) 08/18/22 08/19/22 08/19/22 Range/Units 12:25 06:33 06:33 WBC 13.3 H (3.8-10.6) k/uL RBC 2.84 L (3.80-5.40) m/uL Hgb 8.8 L (11.4-16.0) gm/dL Hct 27.6 L (34.0-46.0) % RDW 16.4 H (11.5-15.5) % Neutrophils # 11.9 H (1.3-7.7) k/uL Lymphocytes # 0.7 L (1.0-4.8) k/uL Chloride 95 L (98-107) mmol/L Carbon Dioxide 49 H* (22-30) mmol/L BUN 25 H (7-17) mg/dL Creatinine 0.45 L (0.52-1.04) mg/dL Calcium 8.3 L (8.4-10.2) mg/dL Troponin I 0.078 H* (0.000-0.034) ng/mL C-Reactive Protein 1.2 H (<1.0) mg/dL Assessment and Plan Assessment: 1. Pseudoaneurysm left femoral artery, hemorrhage, and left femoral patch peak status post vascular surgical repair with incisional vac placement 2. Acute on chronic anemia 3. COPD exacerbation 4. CHF exacerbation 5. Recent left lower extremity revascularization, with open wounds 6. Peripheral arterial disease 7. Atrial fibrillation on Xarelto, currently on hold 8. Bacteremia with pseudomonas aeruginosa, sputum culture positive for Pseudomonas aeruginosa 9. Bilateral lower lobe pneumonia Plan: 1. Keep prevena dressing in place for 7 days- if patient still here Sunday then we will remove 2. Maintain RAJESH drain. 3. Continue local wound care 4. Continue medical management 5. Antibiotics per recommendations from infectious disease 6. Continue soft heel protector boots to bilateral feet 7. Encourage increased mobility/ambulation with physical therapy. Also discussed with patient importance of range of motion in bed with bilateral lower extremities. Patient verbalized understanding.
[2022-08-19] MEDS: COLLAGENASE 250 UNIT/GM OINTMENT 30 GM TUBE TOPICAL SCH (10:20)
[2022-08-19] MEDS: SODIUM CHLORIDE 0.9% 1,000 ML IV SCH (10:20)
--- NOTE | 2022-08-19 13:19 | P.PN ---
Subjective Progress Note Date: 08/19/22 Principal diagnosis: Acute hospital-acquired pseudomonal pneumonia and acute hypoxic respiratory failure 67-year-old female patient who presented to the hospital having fever and some worsening shortness of breath. The patient is known to have advanced COPD and she has undergone Nesmith valve insertion regarding her advanced COPD and the patient has been maintained on a combination of Spiriva and Advair an outpatient basis. The patient is oxygen dependent. The patient does also use oxygen at 2 L per minute nasal cannula at baseline. Noted the patient was in the hospital approximately 3 weeks ago and the patient underwent a vascular/femoral endarterectomy on her left femoral artery for symptomatic claudication. At that time, I took care of this patient in the intensive care unit. The patient is also has severe peripheral vascular disease and she has undergone prior stenting to her bilateral common iliacs and external iliacs and subsequently she required the left femoral and left profunda endarterectomy and left femoral to tibial peroneal trunk bypass. Postop, she developed some swelling in lower extremity and she does have a 4.1 and in her upper thigh with some purulent drainage at the base. During this current hospital stay, the patient was found to be septic. Blood culture was positive for pseudomonas aeruginosa and the patient was seen by infectious disease and the patient was started on IV Zosyn. Meanwhile, the patient is having worsening shortness of breath, cough and congestion. She has excessively congestive cough. She is unable to bring up much of sputum. Her sputum sample has been collected and is showing some few gram-negative bacilli. Her initial white cell count was at 17.2 and dropped down to 14.7. Her pro calcitonin level was 8.0. The chest x-ray showing bilateral lower lobe pulmonary infiltrates and the patient also has a some mild thoracic kyphosis and anterior wedging of the lower was thoracic vertebral and order of 30%. On 08/09/2022, the patient is still complaining of shortness of breath. As mentioned, the patient advanced COPD. For now, sputum is growing gram-negative bacillus and the patient has blood cultures is positive for pseudomonas aeruginosa. The patient is on IV Zosyn. This is most likely bilateral pneumonia with secondary sepsis. At the same time, CAT scan of the chest was done that showed limited infiltration of the lung bases and small to moderate- sized bilateral pleural effusion the lung bases. There is extensive emphysema bilaterally. Meanwhile, the patient is still having a congested cough. Unable to bring up much of sputum. No fever. No chills. No other new complaints otherwise for now. On 08/10/2022, the patient's condition is essentially the same. Sputum sample was positive for pseudomonas aeruginosa. Blood culture was also positive for pseudomonas aeruginosa the patient is currently on IV Zosyn. The patient bilateral pleural effusion. Ultrasound marking of the chest was done and I performed a left-sided thoracentesis today and the patient able to 10% p neumothorax on the left. Total amount of fluid removed was around 250 mL. The patient remained hemodynamically stable. The patient reported improvement in her shortness of breath following the procedure. Nevertheless, she continues to have a congested cough. She is on Mucinex. Unable to bring up much of sputum. The WBC count is improving the white second of 11.6 with a hemoglobin of 9.8. B UN is at 25 with a creatinine of 0.5 and a sodium is at 140. On today's evaluation of 08/11/2022, the patient continues to have a congestive cough, unable to bring up much of sputum. She suffers from pseudomonal bilateral lower lobe pneumonia and bilateral pleural effusion. I performed a thoracentesis fluid on the left external to be transudate. She ended up having a temperature pneumothorax on the left. A repeat chest x-ray will be done today. Meanwhile, earlier this morning, the patient had an acute hemorrhage from her left groin. The surgical once from her previous vascular surgery the past. This wound was developed by vascular surgery. Pressure was applied and currently there is no evidence of any acute bleeding. She is weak. On her blood work, the WBC was 11.6 with a hemoglobin 9.8, BUN is 25 with a creatinine of 0.5 and a sodium level is 140 08/12/2022, slightly improved compared to yesterday, continued to have congestive cough. The repeat chest x-ray was done that showed persistent lower lobe pneumonia. The left-sided pneumothorax remains unchanged. The pleural fluid that was aspirated is a transudate. No other new complaints. No active bleeding from the surgical one-sided. No new labs from today. Remains on bronchodilators. Remains on IV Zosyn. Remains on prednisone. She is complaining of heartburn. She'll be given Protonix in addition to Tums for her ongoing active symptoms of heartburn. On today's evaluation of 08/13/2022, respiratory status is slightly improved and the patient's cough and congestion is gradually improving. Her cough is better. She remains on oxygen by nasal cannula. She remains on IV Zosyn. She remains on bronchodilators, Spiriva, prednisone patient is also on oral Lasix 20 mg by mouth twice a day. She is complaining of heartburn and the patient remains on accommodation of Protonix and Tums. She did have another episode of bleeding from her left groin incision and she currently has a pressure dressing applied. Vascular surgeries on the case and they're informed. No evidence of any hematoma. Hemoglobin is at 9.0 which is essentially stable. Patient was seen today on 08/14/2022, doing well from the pulmonary perspective, feeling much better, breathing easier, however she is experiencing bleeding from her left groin which is being addressed now by vascular surgery. Patient had recent the left lower extremity revascularization and a draining hematoma of the left inguinal area with no evidence of pseudoaneurysm. Continues to have a pressure dressing in the left groin, and again this is being addressed by vascular surgery on the case. Labs today showed WBC count of 10.3 hemoglobin is 9.1, elective lites are normal bicarb is 43 renal profile is normal. Ultrasound of the left groin done recently showed a fluid collection [id number] hypoechoic area, consistent with hematoma there was no evidence of pseudoaneurysm. Last chest x-ray from 08/11 showed evidence of minimal left-sided pneumothorax and trace of pleural effusions. Pleural effusion cytology showed no evidence of malignancy. Reevaluated today on 08/15/2022, patient is continuing to do well from the pulmonary perspective, however her CT angiogram of the left femoral artery showed evidence of pseudoaneurysm, hematoma, and the patient is now being evaluated for possible surgery for her large pseudoaneurysm of the femoral artery and hematoma in the left groin. Her iliac artery bypass graft appeared patent. Patient will receive a unit of packed RBCs prior to her surgery, and the surgery scheduled sometime later this afternoon, and Xarelto remains on hold. Reevaluated today on 08/16/2022, patient underwent surgery by vascular surgery, and she had repair of a pseudoaneurysm of the left femoral artery and evacuation of hematoma. She had a RAJESH in place draining some serosanguineous drainage. Pulmonary-shearer patient is doing well, not much of any illness symptoms except occasional cough, advised to be more compliant with her incentive spirometry at bedside. WBC count is 18.8 hemoglobin is 9.2. Basic metabolic profile is normal except bicarb of 41 with normal renal profile. Last chest x-ray was from 08/11/2022. Will likely recommend repeat chest x-ray to be done in the next 24 hours. Reevaluated today on 08/18/2022, patient is doing fairly well, she was seen yesterday by Dr. Bedolla for possible inpatient rehab. Patient was seen today by vascular surgery, continues to have RAJESH drain in place, and approximately 5 mL of serosanguineous drainage noted in the last 24 hours. Wound cultures have been positive for pseudomonas aeruginosa, patient remains on Zosyn. Being followed by infectious disease. Last chest x-ray showed small left-sided pleural effusion, not large enough to consider repeat thoracentesis on this patient. I believe this patient would benefit from inpatient rehab, and that being in progress. WBC count today is 12.7 hemoglobin is 8.6. Basic metabolic profile is unremarkable except for bicarb of 45. Reevaluated today on 08/19/2022, patient is feeling better and better every day. Remains on 2 L nasal cannula, O2 sats is 94%. Patient is hemodynamically stable with a blood pressure 125/66. Relatively normal CBC today, WBC count is 13.3, improving compared to baseline. And her elective lites are normal bicarb is 49. Renal profile is normal. Objective - Vital Signs Vital signs: Vital Signs Temp 98.5 F 08/19/22 09:21 Pulse 76 08/19/22 12:34 Resp 18 08/19/22 12:15 BP 125/66 08/19/22 12:15 Pulse Ox 94 L 08/19/22 12:15 FiO2 Intake & Output 08/18/22 08/19/22 08/19/22 18:59 06:59 18:59 Intake Total 718 0 Output Total 537 715 Balance 181 -715 0 Intake: Oral 718 0 Output: Drainage 12 15 Left Groin 12 15 Urine 525 700 Other: Voiding Method Indwelling Catheter Indwelling Catheter Indwelling Catheter # Bowel Movements 0 - Exam Physical Exam: Revealed a 67-year-old female in no distress, on 2 L nasal cannula. Family is at bedside. Head: Atraumatic, normocephalic. HEENT:[Neck is supple.] [No neck masses.] [No thyromegaly.] [No JVD.] Chest: [Diminished breath sounds at the bases no crackles or rhonchi or wheezes Cardiac Exam: [Normal S1 and S2, no S3 gallop, no murmur.] Abdomen: [Soft, nontender, no megaly, no rebound, no guarding, normal bowel sounds.] Extremities:Left groin with Prevena dressing in place not on suction but good suction after turning back on, RAJESH drain with approximately 5 ml serosanguineous drainage. Left lower extremity dressing clean dry and intact, no foul odor Neurological Exam: [No focal neurologic deficit.] Alert and oriented 3. Psychiatric: Normal mood affect and normal mental status examination. Skin: No rashes. - Labs CBC & Chem 7: 08/19/22 06:33 08/19/22 06:33 Labs: Abnormal Lab Results - Last 24 Hours (Table) 08/18/22 08/19/22 08/19/22 Range/Units 12:25 06:33 06:33 WBC 13.3 H (3.8-10.6) k/uL RBC 2.84 L (3.80-5.40) m/uL Hgb 8.8 L (11.4-16.0) gm/dL Hct 27.6 L (34.0-46.0) % RDW 16.4 H (11.5-15.5) % Neutrophils # 11.9 H (1.3-7.7) k/uL Lymphocytes # 0.7 L (1.0-4.8) k/uL Chloride 95 L (98-107) mmol/L Carbon Dioxide 49 H* (22-30) mmol/L BUN 25 H (7-17) mg/dL Creatinine 0.45 L (0.52-1.04) mg/dL Calcium 8.3 L (8.4-10.2) mg/dL Troponin I 0.078 H* (0.000-0.034) ng/mL C-Reactive Protein 1.2 H (<1.0) mg/dL Assessment and Plan Assessment: Impression: Pseudoaneurysm of left femoral artery and left groin hematoma. Status post surgery and repair of pseudoaneurysm 08/15/2022, postoperative day #4 Acute on chronic hypoxic respiratory failure secondary to underlying COPD and bilateral pleural effusions and a iatrogenic pneumothorax and acute pseudomonal pneumonia, Bilateral pleural effusions Acute sepsis secondary to pseudomonas aeruginosa pneumonia History of advanced COPD and previous insertion of zephyr valve Multifocal atrial tachycardia Acute diastolic congestive heart failure, patient has preserved LV function Severe peripheral vessel occlusive disease and previous vascular intervention History of breast cancer History of Sjogren syndrome Dyslipidemia Chronic steroid dependence Recommendation: Continue present supportive care measures Continue bronchodilators continue antibiotics/Zosyn, being followed by infectious disease. Continue bronchodilators Continue prednisone Continue Xarelto. Continue GI prophylaxis Possible rehab placement in the next 2 days We will continue to follow Time with Patient: Less than 30
--- NOTE | 2022-08-19 13:23 | P.PN ---
Subjective Progress Note Date: 08/19/22 HISTORY OF PRESENT ILLNESS: The patient is a pleasant 67-year-old female patient who is known to our service from before with a past medical history significant for lower extremities peripheral arterial disease as well as severe COPD and chronic hypoxic respiratory failure on oxygen and also hypertension and dyslipidemia and history of multifocal atrial tachycardia. The patient presented to the hospital complaining of shortness of breath. The patient does have a baseline shortness of breath and she is on oxygen continuously at 2 L. For the last few days she has been experiencing increasing in the shortness of breath associated according to her and her with fever and cough productive of whitish sputum. Beside that she developed bilateral lower extremities edema. No symptoms of any chest pain or chest discomfort or dizziness or lightheadedness but she has been experiencing symptoms of heart racing and fluttering was no presyncope or syncope. The patient and her called ambulance and the patient was brought to the emergency department for further evaluation. She is known to have advanced COPD. Also she is known to have severe lower extremities PAD with a prior stenting of bilateral common iliacs and external iliacs and subsequently few weeks ago she underwent left femoral and left profunda endarterectomy with left femoral to tibial peroneal trunk bypass. She still does have a dressing on the left leg above the left knee because the incision has been healing very slowly. During this admission she underwent a workup including an EKG showing what it seems to be multifocal atrial tachycardia with differential diagnosis of atrial fibrillation and also she underwent cardiac enzymes showed mildly abnormal troponin. The chest x-ray showed findings consistent with CHF. The rest of the blood work came in to be unremarkable. On examination she was in mild respiratory distress. She was also coughing during the examination. She does have bilateral expiratory wheezing and mild bilateral lower except his edema. Reviewing the vital signs revealed marginally low blood pressure with systolic pressure in the 90s. Currently she is on Cardizem IV and she is also on Lasix IV. 08/07/2022 Patient examined this morning at the bedside. She denies chest pain or pressure. She reports shortness of breath this morning. She states that her shortness of breath got worse overnight and they had to increase her oxygen. The patient remains on Lasix 20 mg IV every 12 hours. Telemetry reveals sinus mechanism with a heart rate in the 60s. 08/08/2022 Patient examined this morning at the bedside. Patient denies chest pain or pressure. She reports SOB. She remains on IV lasix. Blood pressure is stable. Echo reveals EF 55-60% 08/09/2022 Patient examined this morning at the bedside. Patient denies chest pain or pressure. She reports continued shortness of breath. Vital signs are stable. 08/18 Patient seen and examined. Patient had complications of pseudoaneurysm and therefore required to aneurysm repair and additionally has been on antibiotics. She admits to continued left lower extremity pain. She denies any chest pain however does admit to some chest pressure. Repeat troponin was drawn given chest pressure however stable at 0.078, down from previous of 0.18. Cardiology was reconsult that secondary to recommendations for anticoagulation. There was initial concern of atrial fibrillation however no atrial fibrillation noted and patient having frequent runs of multifocal atrial tachycardia. 08/19 Her pain is better controlled today with nurses giving pain meds on time. However, she is still having chest pressure that relates to when she is feeling anxious. Shortness of breath is stable. PHYSICAL EXAM: VITAL SIGNS: Reviewed. GENERAL: Well-developed in no acute distress. NECK: Supple. No JVD or thyromegaly LUNGS: Respirations even and unlabored. Lungs diminished bilaterally HEART: Regular rate and rhythm. S1 and S2 heard. EXTREMITIES: Normal range of motion. No clubbing or cyanosis. Peripheral pulses intact. Trace lower extremity edema on the left. ASSESSMENT: Shortness of breath Acute COPD exacerbation Bilateral pneumonia Acute on chronic heart failure with preserved ejection fraction, EF 50-55% in 2020, repeat echo EF 55-60% Multifocal atrial tachycardia, currently maintaining sinus mechanism Hypertension Hyperlipidemia Peripheral arterial disease Recent left lower extremity revascularization with open wounds PLAN: Defer Xarelto (PAD dosing) to vascular surgery. Patient with atypical chest pain and similarly mildly elevated troponin. Continue with medical therapy and if having more chest pain, may consider ischemic workup. No further recs from a cardiology standpoint. Please call with questions. Objective - Vital Signs Vital signs: Vital Signs Temp 98.5 F 08/19/22 09:21 Pulse 76 08/19/22 12:34 Resp 18 08/19/22 12:15 BP 125/66 08/19/22 12:15 Pulse Ox 94 L 08/19/22 12:15 FiO2 Intake & Output 08/18/22 08/19/22 08/19/22 18:59 06:59 18:59 Intake Total 718 0 Output Total 537 715 Balance 181 -715 0 Intake: Oral 718 0 Output: Drainage 12 15 Left Groin 12 15 Urine 525 700 Other: Voiding Method Indwelling Catheter Indwelling Catheter Indwelling Catheter # Bowel Movements 0 - Labs CBC & Chem 7: 08/19/22 06:33 08/19/22 06:33 Labs: Abnormal Lab Results - Last 24 Hours (Table) 08/18/22 08/19/22 08/19/22 Range/Units 12:25 06:33 06:33 WBC 13.3 H (3.8-10.6) k/uL RBC 2.84 L (3.80-5.40) m/uL Hgb 8.8 L (11.4-16.0) gm/dL Hct 27.6 L (34.0-46.0) % RDW 16.4 H (11.5-15.5) % Neutrophils # 11.9 H (1.3-7.7) k/uL Lymphocytes # 0.7 L (1.0-4.8) k/uL Chloride 95 L (98-107) mmol/L Carbon Dioxide 49 H* (22-30) mmol/L BUN 25 H (7-17) mg/dL Creatinine 0.45 L (0.52-1.04) mg/dL Calcium 8.3 L (8.4-10.2) mg/dL Troponin I 0.078 H* (0.000-0.034) ng/mL C-Reactive Protein 1.2 H (<1.0) mg/dL
[2022-08-19 13:45] LABS: Erythrocyte Sedimentation Rate 7 mm/hr (0-20)
--- NOTE | 2022-08-19 16:10 | P.PN ---
Subjective Progress Note Date: 08/19/22 67-year-old female patient; past medical history significant for lower extremities peripheral arterial disease as well as severe COPD and chronic hypoxic respiratory failure on oxygen and also hypertension and dyslipidemia and history of multifocal atrial tachycardia, presented to the hospital complaining of shortness of breath. The patient does have a baseline shortness of breath and she is on oxygen continuously at 2 L. For the last few days she has been experiencing increasing in the shortness of breath associated according to her and her with fever and cough productive of whitish sputum. Beside that she developed bilateral lower extremities edema. No symptoms of any chest pain or chest discomfort or dizziness or lightheadedness but she has been experiencing symptoms of heart racing and fluttering was no presyncope or syncope. The patient and her called ambulance and the patient was brought to the emergency department for further evaluation. During this admission she underwent a workup including an EKG showing what it seems to be multifocal atrial tachycardia with differential diagnosis of atrial fibrillation and also she underwent cardiac enzymes showed mildly abnormal troponin. The chest x-ray showed findings consistent with CHF. The rest of the blood work came in to be unremarkable. On examination she was in mild respiratory distress. She was also coughing during the examination. She does have bilateral expiratory wheezing and mild bilateral lower except his edema. Reviewing the vital signs revealed marginally low blood pressure with systolic pressure in the 90s. Currently she is on Cardizem IV and she is also on Lasix IV. 08/07/2022 This is a pleasant 67 years old female with multiple medical problems who was admitted initially because of dyspnea found to have acute CHF exacerbation and also she has evidence of bilateral pneumonia, she had a fever of 101.3 on admission. She still feels generally weak and tired, mildly tachypneic. Been followed by cardiology and infectious disease dating with positive blood culture for pseudomonas. And covered with abdomen Lasix 20 mg, IV Zosyn. Also she has history of COPD with chronic hypoxic respiratory failure on 2 L of oxygen at home, currently she is using before liters per minute. She has some evidence of diminished air entry in both sides under going to start prednisone 40 mg daily. She is on home dose of 0.5 mg twice a day for paroxysmal atrial fibrillation. Also she is on aspirin 325 mg. also patient follow up with Dr. Curran reported recent revascularizations surgery for his left lower extremity vascular disease, she still Dr. Curran last week and was doing well, she supposed to see him today so he was consulted 08/08/2022 Patient awake and alert, she still have little short of breath and tachypnea, however she feels better. Her cough feels better bleeding looks the same, she still have exertional dyspnea with walking. She still feels generally weak. States to have limited air entry on both lung sewell, no more fever and vitals are stable. Her abdomen Lasix switched to oral pills. Powder Blender on the case and she was kept on Xarelto and metoprolol and Cardizem for her A. fib, Patient also have evidence with pseudomonas bacteremia, source could be pneu monia versus left lower extremity wound, culture is been followed closely. Patient is covered with Zosyn. Infectious disease team on the case. 08/09/2022 Patient states that her leg feels better today, she still complaining of from shortness of breath although she has this wheezing and better air entry limitations to there. Also ultrasound showing bilateral pleural effusion. Vitals are stable. Patient remains on Zosyn, prednisone 40 mg and oral Lasix 20 mg twice daily. 08/10/2022 Patient is still improving slowly and gradually regarding her pneumonia, she sent in bed most of the time, she has recovered is improving with Robitussin-DM which is continued. Chest x-ray from today show significant improvement compared to a few days ago. She underwent a thoracocentesis with 250 mL of turbid fluid removed. Sputum culture is growing Pseudomonas same as blood culture, patient is currently covered with Zosyn. Also she is on a prednisone 40 mg for her possible COPD element. Cardiology team already signed off with recommendation to follow up with Dr. Stewart as an outpatient. 08/11/2022 Patient today awake alert, she still feels short of breath although reports some improvement, she has weak cough and difficult to bring in her phlegm up. Also she's been complaining from bleeding from her left groin area. A sputum culture blood culture both grown Pseudomonas, she underwent thoracocentesis and cytology is pending, she did have some pneumothorax, pulmonary team on the case, her breathing is a stable and actually is improving. Vascular surgery on the case and 0 to was put on hold because of bleeding from the surgical site of her left leg. She kept on prednisone 40 mg as per a burst taper as well as Zosyn. Surgical consult is on the case Patient remains critical. 08/12/2021 Patient had actually looks much better today compared to yesterday, she is more relaxed and pleasant she still have some dyspnea, her coughing is stronger than yesterday as well. She still hemodynamically stable. Oxygenation is improving. Yesterday she had bleeding from her left groin wound related to vascular surgery, no more bleeding today. Result is on hold. Patient remains on Zosyn Cytology is still pending 08/13/2022 Patient is improving slowly and gradually, her dyspnea significantly improved over the last 2 days, although no much difference between yesterday and today. Her cough is better as well. Also bleeding on her left groin has stopped, though remains on hold. Vascular surgery on the case. She remains on Zosyn and Protonix, also has a prednisone 40 mg burst taper. Also on oral Lasix 20 mg twice daily. 08/14/2022 Patient is currently resting in bed. Awake alert and oriented x3. Breathing status is better. Currently requiring 2 L oxygen via nasal cannula. On treatment for Pseudomonas pneumonia and Pseudomonas bacteremia with Zosyn. Otherwise patient was noticed to have bleeding from the left groin and had a recent left elective revascularization. CT of the lower extremity was done which showed there is evidence of large pseudoaneurysm of the femoral artery in the left groin. There is a large hematoma in the left groin. Subcutaneous edema lateral to the left hip. Appears to be significant occlusive disease in the left femoral artery and collateral flow with reconstituted tibial arteries below the knee. The iliac artery bypass graft which appears patent. Laboratory data showed WBC 11.8 hemoglobin 8.4 and platelets 271 Sodium 142 potassium 4.0 chloride 97 bicarb is 43 BUN 25 and creatinine 0.36 and blood sugar is 119. Pulmonary, ID and vascular surgery is on board. Pleural fluid cytology on 08/10/2022 showed reactive mesothelial cells., Macrophages and mixed inflammatory cells. No cytologically malignant cells identified. 08/15/2022 Patient is currently resting in bed. Awake alert and oriented x3. Requiring 2 L oxygen via nasal cannula. Breathing status is much improved. Patient is scheduled for Large pseudoaneurysm of the femoral artery and hematoma in the left groin. Vascular surgery and pulmonary is on board. Patient is getting 1 unit of PRBC prior to surgery. Anticoagulation is on hold. Laboratory data showed WBC 11.8 hemoglobin 8.4 and platelets 271 Sodium 142 potassium 4.0 chloride 97 bicarb is 43 BUN 25 creatinine 0.36 and blood sugar is 119. Patient is on antibiotics in the form of Zosyn. ID is on board. 08/16/2022 Patient is currently resting in bed. Awake alert and oriented x3. Requiring 2 L oxygen via nasal cannula. Remains on antibiotics of Zosyn. Otherwise patient underwent repair of pseudoaneurysm of the left femoral artery and evacuation of hematoma. RAJESH drain is in place with serosanguineous discharge. No complaints of fever or chills. No nausea vomiting abdominal pain or diarrhea. Laboratory data showed WBC 18.8 hemoglobin 9.2 and platelets 185 sodium 139 potassium 3.9 chloride 99 bicarb is 41 BUN 30 and creatinine 0.45 Vascular surgery, pulmonary and ID is on board. 08/18/2022 Patient is seen and evaluated in follow-up with multiple medical consultations following. Infectious disease following an patient is maintained on IV antibiotics and being transitioned IV cefepime. Gram stain showing pseudomonas aeruginosa and patient will be receiving a PICC line today for outpatient IV antibiotic therapy. Case management following as patient was reporting that she was going to [facility] although family and patient would like to go to [facility]. Patient has been accepted although awaiting for clearance of consultations. Vascular surgery following as well and to continue with wound care along with dressing which is in place and draining and close outpatient follow-up. Patient continues to report significant pain requiring IV pain medication as well as significant weakness and difficulty with ambulation with physical therapy following closely. WBC is trending down and currently 12.7 today, hemoglobin is stable at 8.6, potassium is 3.3 and will replace per protocol, patient is report ing of some chest pain and shortness of breath and troponins are trending down. Patient is being followed closely by pulmonary continued on prednisone along with breathing treatment and will continue. Recommend PT/OT therapy daily and increased activity as tolerated. Patient encouraged to continue with exercises well in bed as well and continued movement this patient is becoming more significantly weak each day she is here. 08/19/2022 Patient is being evaluated today being monitored closely with multiple medical consultations following including vascular surgery, infectious disease, cardi ology, and pulmonary. Patient is continued on IV antibiotics and has received a PICC line to continue with IV antibiotic therapy. Patient will be going to [facility] likely Sunday. Patient was having some increased pain although feels is somewhat controlled today. Patient is extremely weak and would recommend physical therapy daily. Patient continues with provider none dressing in place in the groin and will likely be removed by vascular surgery on Sunday. WBC is elevated although trending down and hemoglobin is currently stable above 8. Patient has been resumed on several toe and is noted to have some hematuria in the Horan catheter. Would recommend replacing Horan catheter and monitoring any further for worsening hematuria. Will follow-up with repeat labs in the a.m. Review of systems: Constitutional: No reports of fatigue, fever, or chills Cardiovascular: No reports of chest pain or palpitations Respiratory: No reports of worsening shortness of breath GI: No reports of nausea, vomiting, or diarrhea : No reports of dysuria or retention as reporting to have some blood noted in the Horan Neurovascular: reports of generalized weakness All medications have been reviewed . Active Medications Hydrocodone Bitart/Acetaminophen (Hydrocodone/Apap 5-325mg 1 Each Tab) 1 each PO Q6HR PRN PRN Reason: Pain Scale 6 to 10 Last Admin: 08/19/22 12:16 Dose: 1 each Albuterol Sulfate (Albuterol Nebulized 2.5 Mg/3 Ml) 2.5 mg INHALATION RT-TID [facility] Last Admin: 08/19/22 12:20 Dose: 2.5 mg Alprazolam (Alprazolam 0.25 Mg Tab) 0.25 mg PO BID PRN PRN Reason: Anxiety Last Admin: 08/19/22 10:26 Dose: 0.25 mg Aspirin (Aspirin 81 Mg) 81 mg PO DAILY [facility] Last Admin: 08/19/22 09:19 Dose: 81 mg Atorvastatin Calcium (Atorvastatin 80 Mg Tab) 80 mg PO HS [facility] Last Admin: 08/18/22 20:23 Dose: 80 mg Calcium Carbonate/Glycine (Calcium Carbonate 500 Mg Chewable) 1,000 mg PO QID PRN PRN Reason: Heartburn Last Admin: 08/13/22 17:10 Dose: 1,000 mg Cholecalciferol (Cholecalciferol 25 Mcg (1000 Iu) Tablet) 50 mcg PO DAILY [facility] Last Admin: 08/19/22 09:19 Dose: 50 mcg Collagenase (Collagenase 250 Unit/Gm Ointment 30 Gm Tube) 1 applic TOPICAL DAILY [facility]; Protocol Last Admin: 08/19/22 10:20 Dose: Not Given Diltiazem HCl (Diltiazem Oral 30 Mg Tab) 30 mg PO TID [facility] Last Admin: 08/19/22 09:19 Dose: 30 mg Docusate Sodium (Docusate 100 Mg Cap) 100 mg PO DAILY [facility] Last Admin: 08/19/22 09:19 Dose: 100 mg Furosemide (Furosemide 20 Mg Tab) 20 mg PO BID@0900,1600 [facility] Last Admin: 08/19/22 09:19 Dose: 20 mg Gabapentin (Gabapentin 300 Mg Cap) 300 mg PO TID [facility] Last Admin: 08/19/22 09:19 Dose: 300 mg Guaifenesin/Dextromethorphan (Guaifenesin-Dm 600/30mg 1 Each Tab.Er.12h) 2 each PO Q12HR [facility] Last Admin: 08/19/22 09:19 Dose: 2 each Hydromorphone HCl (Hydromorphone 0.5 Mg/0.5 Ml Syringe) 0.5 mg IVP Q3HR PRN PRN Reason: Pain Last Admin: 08/19/22 14:23 Dose: 0.5 mg Hydroxychloroquine Sulfate (Hydroxychloroquine Sulfate 200 Mg Tab) 200 mg PO BID [facility] Last Admin: 08/19/22 09:19 Dose: 200 mg Sodium Chloride (Saline 0.9%) 1,000 mls @ 20 mls/hr IV .Q24H [facility] Last Admin: 08/19/22 10:20 Dose: Not Given Cefepime HCl 2 gm/ Sodium (Chloride) 100 mls @ 25 mls/hr IVPB Q8H [facility]; Protocol Last Admin: 08/19/22 12:48 Dose: 25 mls/hr Letrozole (Letrozole 2.5 Mg Tab) 2.5 mg PO DAILY [facility] Last Admin: 08/19/22 09:19 Dose: 2.5 mg Metoprolol Tartrate (Metoprolol Tartrate 25 Mg Tab) 25 mg PO BID [facility] Last Admin: 08/19/22 09:19 Dose: 25 mg Miscellaneous Information (Potassium Replacement Protocol 1 Each Misc) 1 each MISCELLANE DAILY PRN; Protocol PRN Reason: Per Protocol Non-Formulary Medication (Fluticasone Propion/Salmeterol [Advair 500-50 Diskus]) 1 puff INHALATION RT-BID [facility] Last Admin: 08/19/22 07:58 Dose: 1 puff Pantoprazole Sodium (Pantoprazole 40 Mg Tablet) 40 mg PO AC-BID [facility] Last Admin: 08/19/22 06:55 Dose: 40 mg Prednisone (Prednisone 20 Mg Tab) 40 mg PO DAILY [facility] Last Admin: 08/19/22 09:19 Dose: 40 mg Promethazine HCl (Promethazine 25 Mg Tab) 12.5 mg PO Q6HR PRN PRN Reason: Nausea And Vomiting Rivaroxaban (Rivaroxaban 2.5 Mg Tablet) 2.5 mg PO BID [facility]; Protocol Last Admin: 08/19/22 09:18 Dose: 2.5 mg Tiotropium Cameron (Tiotropium 2.5 Mcg Inhaler) 2 puff INHALATION RT-DAILY [facility] Last Admin: 08/19/22 07:57 Dose: 2 puff Physical exam: GENERAL: The patient is alert and oriented x3, not in any acute distress. Thin built, elderly appearing. Generally weak HEENT: Pupils are round and equally reacting to light. EOMI. No scleral icterus. No conjunctival pallor. Normocephalic, atraumatic. No pharyngeal erythema. No thyromegaly. CARDIOVASCULAR: S1 and S2 present. No murmurs, rubs, or gallops. PULMONARY: Chest is clear to auscultation, no wheezing or crackles. Decreased air entry on both sides ABDOMEN: Soft, nontender, nondistended, normoactive bowel sounds. No palpable organomegaly. Left groin surgical site with RAJESH drain in place and dressing noted Left groin pressure bandage in place. MUSCULOSKELETAL: No joint swelling or deformity. EXTREMITIES: No cyanosis, clubbing, or pedal edema. NEUROLOGICAL: Gross neurological examination did not reveal any focal deficits. Diffusely weak SKIN: No rashes. no petechiae. Assessment: -Bilateral pneumonia secondary to pseudomonas. Status post left thoracocentesis with 50 mL of turbid fluid removed on 08/10. Fluid cytology showed no malignant cells. -Pseudomonas bacteremia -Hematuria, most likely secondary to xarelto -Large left groin pseudoaneurysm with recent history of left lower extremity revascularization. -Pseudoaneurysm left femoral artery, left groin hematoma. S/p repair and evacuation of hematoma on 08/15/2022. -Mild acute blood loss anemia secondary to above -Acute CHF exacerbation -Paroxysmal atrial fibrillation's with elevated troponin -Acute COPD exacerbation -Moderate left pneumothorax -Acute on chronic hypoxic respiratory failure -Cyanosis present on admission with fever and leukocytosis -Peripheral vascular disease status post recent revascularization of the left lower extremity with open wound, with bleeding from one side and hematoma of the left groin Plan: S/p repair of Pseudoaneurysm and evacuation of hematoma on 08/15/2022. Continue with cefepime per ID recommendations and patient will require PICC line and continue on antibiotic therapy Xeralto being resumed and will continue for now although recommend monitoring hemoglobin and further bleeding closely as patient was noted to have some blood in the Horan. Hemoglobin is stable at 8 today and will follow-up with repeat labs. Recommend replacing indwelling Horan catheter Continue with prednisone burst taper and breathing treatment Continue with oral Lasix, pulmonary, vascular surgeon and infectious disease following and appreciate input and recommendations. DVT prophylaxis: Xeralto GI Prophylaxis: Ppi PT/OT: Evaluating the patient recommending rehab patient is agreeable with case management following and planning on going to Sunday Vascular surgery following with special dressing and will likely remove on Sunday prior to discharge Recommend close monitoring and continuing with pain management and local wound care Due to multiple complex medical issues, Prognosis is guarded The impression and plan of care has been dictated as a scribe by Roslyn Desai, Nurse Practitioner as directed. Dr. Michaelle MD I have performed a history and examination and MDM of this patient, discussed the same with the dictator, and will be documented as a scribe. Based on total visit time, I have performed more than 50% of the visit. Objective - Vital Signs Vital signs: Vital Signs Temp 98.5 F 08/19/22 09:21 Pulse 77 08/19/22 09:21 Resp 18 08/19/22 09:21 BP 114/67 08/19/22 09:21 Pulse Ox 94 L 08/19/22 09:21 FiO2 Intake & Output 08/18/22 08/19/22 08/19/22 18:59 06:59 18:59 Intake Total 718 0 Output Total 537 715 Balance 181 -715 0 Intake: Oral 718 0 Output: Drainage 12 15 Left Groin 12 15 Urine 525 700 Other: Voiding Method Indwelling Catheter Indwelling Catheter Indwelling Catheter # Bowel Movements 0 - Labs CBC & Chem 7: 08/19/22 06:33 08/19/22 06:33 Labs: Abnormal Lab Results - Last 24 Hours (Table) 08/18/22 08/19/22 08/19/22 Range/Units 12:25 06:33 06:33 WBC 13.3 H (3.8-10.6) k/uL RBC 2.84 L (3.80-5.40) m/uL Hgb 8.8 L (11.4-16.0) gm/dL Hct 27.6 L (34.0-46.0) % RDW 16.4 H (11.5-15.5) % Neutrophils # 11.9 H (1.3-7.7) k/uL Lymphocytes # 0.7 L (1.0-4.8) k/uL Chloride 95 L (98-107) mmol/L Carbon Dioxide 49 H* (22-30) mmol/L BUN 25 H (7-17) mg/dL Creatinine 0.45 L (0.52-1.04) mg/dL Calcium 8.3 L (8.4-10.2) mg/dL Troponin I 0.078 H* (0.000-0.034) ng/mL C-Reactive Protein 1.2 H (<1.0) mg/dL
--- NOTE | 2022-08-19 21:09 | US ---
EXAMINATION TYPE: US extremity nonvasc mass RT DATE OF EXAM: 08/19/2022 COMPARISON: NONE CLINICAL HISTORY: Hematoma. Pt has swelling and bruise in area of right medial upper arm near antecub ital fossa and IV site FINDINGS: Complex collection right medial upper arm at antecubital fossa and IV site= 2.8 x 0.6 x 4 .3 cm ?hematoma IMPRESSION: Exam shows elongated complex fluid collection in the area of swelling in the upper arm an teriorly that could be hematoma. Abscess not excluded.
[2022-08-19] MEDS: ATORVASTATIN 80 MG TAB PO SCH (21:10)
--- NOTE | 2022-08-19 21:59 | P.PN ---
Subjective Progress Note Date: 08/19/22 Principal diagnosis: Pseudomonas bacteremia Patient is a 67-year-old female with a past medical history significant for hypertension GERD atrial fibrillation peripheral arterial disease left breast cancer presenting to the ER for evaluation of increasing shortness of breath patient did have fever and elevated white count and recently did have a left lower extremity muscular procedure with open wound to the left medial thigh and left leg subsequently with evidence of pseudomonas bacteremia. Patient is status post left-sided thoracocentesis completed on 08/10/2022 with removal of 250 mL turbid fluid culture were negative patient also have a left lower extremity CT with evidence of large left femoral pseudoaneurysm and hematoma,Patient did have a left groin exploration for control of the left femoral artery hemorrhage controlled the left external iliac endarterectomy portion stent removal, open thrombectomy of the left femoral tibial vein bypass and profunda artery patch angioplasty antibiotic beads his pain with the procedure completed on 08/15/2022 On today's evaluation that is 08/19/2022, the patient remains to be afebrile, the patient is breathing comfortably on 2 L nasal cannula oxygen, patient denies having any chest pain , the patient did have a mild cough but no sputum production, The patient pain to the left leg has slightly decreased in int ensity, no vomiting or diarrhea Objective - Vital Signs Vital signs: Vital Signs Temp 97.7 F 08/19/22 03:38 Pulse 77 08/19/22 08:15 Resp 14 08/19/22 03:38 BP 104/55 08/19/22 03:38 Pulse Ox 96 08/19/22 08:00 FiO2 Intake & Output 08/18/22 08/19/22 08/19/22 18:59 06:59 18:59 Intake Total 718 0 Output Total 537 715 Balance 181 -715 0 Intake: Oral 718 0 Output: Drainage 12 15 Left Groin 12 15 Urine 525 700 Other: Voiding Method Indwelling Catheter Indwelling Catheter Indwelling Catheter # Bowel Movements 0 - Exam GENERAL DESCRIPTION: An elderly female lying in bed in no distress RESPIRATORY SYSTEM: Unlabored breathing , decreased breath sounds at bases HEART: S1 S2 regular rate and rhythm , ABDOMEN: Soft , no tenderness EXTREMITIES: Left thigh wound wounds covered with a wound VAC left foot is warm and no open wound or any drainage - Labs CBC & Chem 7: 08/19/22 06:33 08/19/22 06:33 Labs: Abnormal Lab Results - Last 24 Hours (Table) 08/18/22 08/19/22 08/19/22 Range/Units 12:25 06:33 06:33 WBC 13.3 H (3.8-10.6) k/uL RBC 2.84 L (3.80-5.40) m/uL Hgb 8.8 L (11.4-16.0) gm/dL Hct 27.6 L (34.0-46.0) % RDW 16.4 H (11.5-15.5) % Neutrophils # 11.9 H (1.3-7.7) k/uL Lymphocytes # 0.7 L (1.0-4.8) k/uL Chloride 95 L (98-107) mmol/L Carbon Dioxide 49 H* (22-30) mmol/L BUN 25 H (7-17) mg/dL Creatinine 0.45 L (0.52-1.04) mg/dL Calcium 8.3 L (8.4-10.2) mg/dL Troponin I 0.078 H* (0.000-0.034) ng/mL C-Reactive Protein 1.2 H (<1.0) mg/dL Assessment and Plan (1) Bacteremia due to Pseudomonas Current Visit: Yes Status: Acute Code(s): R78.81 - BACTEREMIA; B96.5 - PSEUDOMONAS (MALLEI) CAUSING DISEASES [facility] SNOMED Code(s): 9892663903 Plan: 1patient presented to hospital with sepsis in this patient who did a fever elevated white tachycardia and now with evidence of gram-negative bacteremia source questionably infected left lower extremity wound with a recent vascular procedure for PAD versus pneumonia however chest x-ray is most interstitial infi ltrate although the patient did have elevated procalcitonin sputum cultures have been obtained which did grow pseudomonas aeruginosa 2-blood cultures repeat has been negative , pleural fluid cultures are so far negative, 3-patient did have extensive surgery to the left groin and cultures has been t cesar which are growing Pseudomonas which is a sensitive pathogen 4- patient to continue with cefepime 2 g every 8 hours patient did got PICC line for outpatient IV antibiotic therapy and monitor clinical course closely Time with Patient: Less than 30
[2022-08-20] MEDS: HYDROmorphone 0.5 MG/0.5 ML SYRINGE IVP PRN ×3 (02:28→15:01)
[2022-08-20] MEDS: CEFEPIME 2 GM in SODIUM CHLORIDE 0.9% 100 ML IVPB SCH ×3 (04:03→20:30)
[2022-08-20] MEDS: HYDROcodone/APAP 5-325MG 1 EACH TAB PO PRN ×4 (06:30→23:34)
[2022-08-20] MEDS: PANTOPRAZOLE 40 MG TABLET PO SCH ×2 (06:30→16:12)
[2022-08-20] MEDS: TIOTROPIUM 2.5 MCG INHALER INHALATION SCH (07:40)
[2022-08-20] MEDS: ALBUTEROL NEBULIZED 2.5 MG/3 ML INHALATION SCH ×3 (07:40→21:35)
[2022-08-20] MEDS: NON FORMULARY DRUG (Fluticasone Propion/Salmeterol [Advair 500-50 Diskus] 1 EACH Blst.W.De INHALATION SCH ×2 (07:40→21:35)
[2022-08-20 08:10] LABS: Anisocytosis Slight; Basophils % (A) 0 %; Eosinophils # (A) 0.1 k/uL (0-0.7); Eosinophils % (A) 0 %; HCT 26.4 % (34.0-46.0); HGB 8.6 gm/dL (11.4-16.0); Hypochromasia Moderate; Lymphocytes # (A) 0.5 k/uL (1.0-4.8); Lymphocytes % (A) 4 %; MCH 31.4 pg (25.0-35.0); MCHC 32.5 g/dL (31.0-37.0); MCV 96.6 fL (80.0-100.0); Macrocytosis Slight; Monocytes # (A) 0.7 k/uL (0-1.0); Monocytes % (A) 5 %; Neutrophils # (A) 12.4 k/uL (1.3-7.7); Neutrophils % (A) 90 %; Platelet Count 187 k/uL (150-450); Poikilocytosis Slight; RBC 2.73 m/uL (3.80-5.40); RDW 16.6 % (11.5-15.5); WBC 13.8 k/uL (3.8-10.6)
[2022-08-20] MEDS: DOCUSATE 100 MG CAP PO SCH (08:24)
[2022-08-20] MEDS: LETROZOLE 2.5 MG TAB PO SCH (08:24)
[2022-08-20] MEDS: CHOLECALCIFEROL 25 MCG (1000 IU) TABLET PO SCH (08:24)
[2022-08-20 08:25] LABS: African American GFR (CKD) >90 (>60 ml/min/1.73 sqM); Blood Urea Nitrogen 28 mg/dL (7-17); Calcium 8.4 mg/dL (8.4-10.2); Chloride 94 mmol/L (98-107); Glucose 90 mg/dL (74-99); Magnesium 2.3 mg/dL (1.6-2.3); Non-African American GFR(CKD) >90 (>60 ml/min/1.73 sqM); Sodium 139 mmol/L (137-145)
[2022-08-20] MEDS: HYDROXYCHLOROQUINE SULFATE 200 MG TAB PO SCH ×2 (08:25→20:30)
[2022-08-20] MEDS: FUROSEMIDE 20 MG TAB PO SCH ×2 (08:25→16:11)
[2022-08-20] MEDS: GABAPENTIN 300 MG CAP PO SCH ×3 (08:25→20:30)
[2022-08-20] MEDS: ASPIRIN 81 MG PO SCH (08:25)
[2022-08-20] MEDS: guaiFENesin-DM 600/30MG 1 EACH TAB.ER.12H PO SCH ×2 (08:25→20:30)
[2022-08-20] MEDS: predniSONE 20 MG TAB PO SCH (08:25)
[2022-08-20] MEDS: DILTIAZEM ORAL 30 MG TAB PO SCH ×3 (08:25→20:29)
[2022-08-20] MEDS: METOPROLOL TARTRATE 25 MG TAB PO SCH ×2 (08:25→20:30)
[2022-08-20 08:32] LABS: Anion Gap -2 mmol/L
[2022-08-20 08:39] LABS: Carbon Dioxide 47 mmol/L (22-30)
[2022-08-20] MEDS: SODIUM CHLORIDE 0.9% 1,000 ML IV SCH (11:47)
[2022-08-20] MEDS: COLLAGENASE 250 UNIT/GM OINTMENT 30 GM TUBE TOPICAL SCH (11:47)
--- NOTE | 2022-08-20 14:04 | P.PN ---
Subjective Progress Note Date: 08/20/22 Principal diagnosis: Acute hospital-acquired pseudomonal pneumonia and acute hypoxic respiratory failure 67-year-old female patient who presented to the hospital having fever and some worsening shortness of breath. The patient is known to have advanced COPD and she has undergone Butler valve insertion regarding her advanced COPD and the patient has been maintained on a combination of Spiriva and Advair an outpatient basis. The patient is oxygen dependent. The patient does also use oxygen at 2 L per minute nasal cannula at baseline. Noted the patient was in the hospital approximately 3 weeks ago and the patient underwent a vascular/femoral endarterectomy on her left femoral artery for symptomatic claudication. At that time, I took care of this patient in the intensive care unit. The patient is also has severe peripheral vascular disease and she has undergone prior stenting to her bilateral common iliacs and external iliacs and subsequently she required the left femoral and left profunda endarterectomy and left femoral to tibial peroneal trunk bypass. Postop, she developed some swelling in lower extremity and she does have a 4.1 and in her upper thigh with some purulent drainage at the base. During this current hospital stay, the patient was found to be septic. Blood culture was positive for pseudomonas aeruginosa and the patient was seen by infectious disease and the patient was started on IV Zosyn. Meanwhile, the patient is having worsening shortness of breath, cough and congestion. She has excessively congestive cough. She is unable to bring up much of sputum. Her sputum sample has been collected and is showing some few gram-negative bacilli. Her initial white cell count was at 17.2 and dropped down to 14.7. Her pro calcitonin level was 8.0. The chest x-ray showing bilateral lower lobe pulmonary infiltrates and the patient also has a some mild thoracic kyphosis and anterior wedging of the lower was thoracic vertebral and order of 30%. On 08/09/2022, the patient is still complaining of shortness of breath. As mentioned, the patient advanced COPD. For now, sputum is growing gram-negative bacillus and the patient has blood cultures is positive for pseudomonas aeruginosa. The patient is on IV Zosyn. This is most likely bilateral pneumonia with secondary sepsis. At the same time, CAT scan of the chest was done that showed limited infiltration of the lung bases and small to moderate- sized bilateral pleural effusion the lung bases. There is extensive emphysema bilaterally. Meanwhile, the patient is still having a congested cough. Unable to bring up much of sputum. No fever. No chills. No other new complaints otherwise for now. On 08/10/2022, the patient's condition is essentially the same. Sputum sample was positive for pseudomonas aeruginosa. Blood culture was also positive for pseudomonas aeruginosa the patient is currently on IV Zosyn. The patient bilateral pleural effusion. Ultrasound marking of the chest was done and I performed a left-sided thoracentesis today and the patient able to 10% p neumothorax on the left. Total amount of fluid removed was around 250 mL. The patient remained hemodynamically stable. The patient reported improvement in her shortness of breath following the procedure. Nevertheless, she continues to have a congested cough. She is on Mucinex. Unable to bring up much of sputum. The WBC count is improving the white second of 11.6 with a hemoglobin of 9.8. B UN is at 25 with a creatinine of 0.5 and a sodium is at 140. On today's evaluation of 08/11/2022, the patient continues to have a congestive cough, unable to bring up much of sputum. She suffers from pseudomonal bilateral lower lobe pneumonia and bilateral pleural effusion. I performed a thoracentesis fluid on the left external to be transudate. She ended up having a temperature pneumothorax on the left. A repeat chest x-ray will be done today. Meanwhile, earlier this morning, the patient had an acute hemorrhage from her left groin. The surgical once from her previous vascular surgery the past. This wound was developed by vascular surgery. Pressure was applied and currently there is no evidence of any acute bleeding. She is weak. On her blood work, the WBC was 11.6 with a hemoglobin 9.8, BUN is 25 with a creatinine of 0.5 and a sodium level is 140 08/12/2022, slightly improved compared to yesterday, continued to have congestive cough. The repeat chest x-ray was done that showed persistent lower lobe pneumonia. The left-sided pneumothorax remains unchanged. The pleural fluid that was aspirated is a transudate. No other new complaints. No active bleeding from the surgical one-sided. No new labs from today. Remains on bronchodilators. Remains on IV Zosyn. Remains on prednisone. She is complaining of heartburn. She'll be given Protonix in addition to Tums for her ongoing active symptoms of heartburn. On today's evaluation of 08/13/2022, respiratory status is slightly improved and the patient's cough and congestion is gradually improving. Her cough is better. She remains on oxygen by nasal cannula. She remains on IV Zosyn. She remains on bronchodilators, Spiriva, prednisone patient is also on oral Lasix 20 mg by mouth twice a day. She is complaining of heartburn and the patient remains on accommodation of Protonix and Tums. She did have another episode of bleeding from her left groin incision and she currently has a pressure dressing applied. Vascular surgeries on the case and they're informed. No evidence of any hematoma. Hemoglobin is at 9.0 which is essentially stable. Patient was seen today on 08/14/2022, doing well from the pulmonary perspective, feeling much better, breathing easier, however she is experiencing bleeding from her left groin which is being addressed now by vascular surgery. Patient had recent the left lower extremity revascularization and a draining hematoma of the left inguinal area with no evidence of pseudoaneurysm. Continues to have a pressure dressing in the left groin, and again this is being addressed by vascular surgery on the case. Labs today showed WBC count of 10.3 hemoglobin is 9.1, elective lites are normal bicarb is 43 renal profile is normal. Ultrasound of the left groin done recently showed a fluid collection [id number] hypoechoic area, consistent with hematoma there was no evidence of pseudoaneurysm. Last chest x-ray from 08/11 showed evidence of minimal left-sided pneumothorax and trace of pleural effusions. Pleural effusion cytology showed no evidence of malignancy. Reevaluated today on 08/15/2022, patient is continuing to do well from the pulmonary perspective, however her CT angiogram of the left femoral artery showed evidence of pseudoaneurysm, hematoma, and the patient is now being evaluated for possible surgery for her large pseudoaneurysm of the femoral artery and hematoma in the left groin. Her iliac artery bypass graft appeared patent. Patient will receive a unit of packed RBCs prior to her surgery, and the surgery scheduled sometime later this afternoon, and Xarelto remains on hold. Reevaluated today on 08/16/2022, patient underwent surgery by vascular surgery, and she had repair of a pseudoaneurysm of the left femoral artery and evacuation of hematoma. She had a RAJESH in place draining some serosanguineous drainage. Pulmonary-shearer patient is doing well, not much of any illness symptoms except occasional cough, advised to be more compliant with her incentive spirometry at bedside. WBC count is 18.8 hemoglobin is 9.2. Basic metabolic profile is normal except bicarb of 41 with normal renal profile. Last chest x-ray was from 08/11/2022. Will likely recommend repeat chest x-ray to be done in the next 24 hours. Reevaluated today on 08/18/2022, patient is doing fairly well, she was seen yesterday by Dr. Bedolla for possible inpatient rehab. Patient was seen today by vascular surgery, continues to have RAJESH drain in place, and approximately 5 mL of serosanguineous drainage noted in the last 24 hours. Wound cultures have been positive for pseudomonas aeruginosa, patient remains on Zosyn. Being followed by infectious disease. Last chest x-ray showed small left-sided pleural effusion, not large enough to consider repeat thoracentesis on this patient. I believe this patient would benefit from inpatient rehab, and that being in progress. WBC count today is 12.7 hemoglobin is 8.6. Basic metabolic profile is unremarkable except for bicarb of 45. Reevaluated today on 08/19/2022, patient is feeling better and better every day. Remains on 2 L nasal cannula, O2 sats is 94%. Patient is hemodynamically stable with a blood pressure 125/66. Relatively normal CBC today, WBC count is 13.3, improving compared to baseline. And her elective lites are normal bicarb is 49. Renal profile is normal. Reevaluated today on 08/20/2022, patient is feeling better, continues to breathe easier, today is one of the days. Remains on 2 L nasal cannula, O2 sats is 96%, blood pressure is 120/76, patient is not in any distress, and family is at bedside labs including CBC and basic metabolic profile were noted today, no major change. Objective - Vital Signs Vital signs: Vital Signs Temp 97.5 F L 08/20/22 08:23 Pulse 69 08/20/22 12:23 Resp 18 08/20/22 12:23 BP 129/76 08/20/22 12:23 Pulse Ox 96 08/20/22 12:23 FiO2 Intake & Output 08/19/22 08/20/2223 18:59 06:59 18:59 Intake Total 378 668 Output Total 415 350 0 Balance -37 -350 668 Intake: IV 20 10 Invasive Line 5 10 10 Invasive Line 7 10 Oral 358 [id number] Output: Drainage 15 0 Left Groin 15 0 Urine 400 350 Other: Voiding Method Indwelling Catheter Indwelling Catheter Indwelling Catheter # Bowel Movements 0 - Exam Physical Exam: Revealed a 67-year-old female in no distress, on 2 L nasal cannula. Head: Atraumatic, normocephalic. HEENT:[Neck is supple.] [No neck masses.] [No thyromegaly.] [No JVD.] Chest: [Diminished breath sounds at the bases no crackles or rhonchi or wheezes Cardiac Exam: [Normal S1 and S2, no S3 gallop, no murmur.] Abdomen: [Soft, nontender, no megaly, no rebound, no guarding, normal bowel sounds.] Extremities: No clubbing edema or cyanosis. Left groin is being addressed by vascular surgery on the case Neurological Exam: [No focal neurologic deficit.] Alert and oriented 3. Psychiatric: Normal mood affect and normal mental status examination. Skin: No rashes. - Labs CBC & Chem 7: 08/20/22 07:04 08/20/22 07:04 Labs: Abnormal Lab Results - Last 24 Hours (Table) 08/20/22 08/20/22 Range/Units 07:04 07:04 WBC 13.8 H (3.8-10.6) k/uL RBC 2.73 L (3.80-5.40) m/uL Hgb 8.6 L (11.4-16.0) gm/dL Hct 26.4 L (34.0-46.0) % RDW 16.6 H (11.5-15.5) % Neutrophils # 12.4 H (1.3-7.7) k/uL Lymphocytes # 0.5 L (1.0-4.8) k/uL Chloride 94 L (98-107) mmol/L Carbon Dioxide 47 H* (22-30) mmol/L BUN 28 H (7-17) mg/dL Creatinine 0.41 L (0.52-1.04) mg/dL Microbiology - Last 24 Hours (Table) 08/15/22 16:36 Anaerobic Culture - Final Groin Assessment and Plan Assessment: Impression: Pseudoaneurysm of left femoral artery and left groin hematoma. Status post surgery and repair of pseudoaneurysm 08/15/2022, postoperative day #5. Acute on chronic hypoxic respiratory failure secondary to underlying COPD and bilateral pleural effusions and a iatrogenic pneumothorax and acute pseudomonal pneumonia, Bilateral pleural effusions Acute sepsis secondary to pseudomonas aeruginosa pneumonia History of advanced COPD and previous insertion of zephyr valve Multifocal atrial tachycardia Acute diastolic congestive heart failure, patient has preserved LV function Severe peripheral vessel occlusive disease and previous vascular intervention History of breast cancer History of Sjogren syndrome Dyslipidemia Chronic steroid dependence Recommendation: Continue present supportive care measures Continue bronchodilators continue antibiotics/Zosyn, being followed by infectious disease. Continue bronchodilators Continue prednisone Continue Xarelto. Continue GI prophylaxis consider discharge planning to rehab in the next 24 hours patient may be going to [facility]/rehab. We will continue to follow Time with Patient: Less than 30
--- NOTE | 2022-08-20 17:01 | P.PN ---
Subjective Progress Note Date: 08/20/22 Principal diagnosis: Left femoral artery pseudoaneurysm and repair Patient was seen and examined today as a follow-up. She states feeling better today. Overnight the Prevena vac was beeping and was turned off. She states sitting on the side of the bed yesterday. Her foot is still having some discomfort but she states some mild improvement. Objective - Vital Signs Vital signs: Vital Signs Temp 98.1 F 08/20/22 16:10 Pulse 67 08/20/22 16:10 Resp 15 08/20/22 16:10 BP 109/60 08/20/22 16:10 Pulse Ox 96 08/20/22 16:10 FiO2 Intake & Output 08/19/22 08/20/22 08/20/22 18:59 06:59 18:59 Intake Total 378 778 Output Total 415 350 475 Balance -37 -350 303 Intake: IV 20 20 Invasive Line 5 10 20 Invasive Line 7 10 Intake, IV Titration 100 Amount Cefepime 2 gm In Sodium 100 Chloride 0.9% 100 ml @ 25 mls/hr IVPB [facility] Rx#: [id number] Oral 358 658 Output: Drainage 15 25 Left Groin 15 25 Urine 400 350 450 Other: Voiding Method Indwelling Catheter Indwelling Catheter Indwelling Catheter # Bowel Movements 0 - Exam General appearance: The patient is alert, oriented, appears in no acute distress. HET: Head is normocephalic and atraumatic. Pupils are equal and reactive. Neck: Supple without lymphadenopathy. Trachea midline. Extremities: Left groin with Prevena dressing in place not on suction, RAJESH drain with approximately 5 ml serosanguineous drainage. Left lower extremity dressing clean dry and intact, no foul odor. Palpable bypass graft. Doppler signal left PT and DP. Sensorimotor intact. Tender to palpation along the medial and lateral aspect of left foot. Foot and toes cool to touch, ankle and above warm. Neurological: No focal deficits. - Labs CBC & Chem 7: 08/20/22 07:04 08/20/22 07:04 Labs: Abnormal Lab Results - Last 24 Hours (Table) 08/20/22 08/20/22 Range/Units 07:04 07:04 WBC 13.8 H (3.8-10.6) k/uL RBC 2.73 L (3.80-5.40) m/uL Hgb 8.6 L (11.4-16.0) gm/dL Hct 26.4 L (34.0-46.0) % RDW 16.6 H (11.5-15.5) % Neutrophils # 12.4 H (1.3-7.7) k/uL Lymphocytes # 0.5 L (1.0-4.8) k/uL Chloride 94 L (98-107) mmol/L Carbon Dioxide 47 H* (22-30) mmol/L BUN 28 H (7-17) mg/dL Creatinine 0.41 L (0.52-1.04) mg/dL Microbiology - Last 24 Hours (Table) 08/15/22 16:36 Anaerobic Culture - Final Groin Assessment and Plan Assessment: 1. Pseudoaneurysm left femoral artery, hemorrhage, and left femoral patch peak status post vascular surgical repair with incisional vac placement 2. Acute on chronic anemia 3. COPD exacerbation 4. CHF exacerbation 5. Recent left lower extremity revascularization, with open wounds 6. Peripheral arterial disease 7. Atrial fibrillation on Xarelto, currently on hold 8. Bacteremia with pseudomonas aeruginosa, sputum culture positive for Pseudomonas aeruginosa 9. Bilateral lower lobe pneumonia Plan: 1. Removed Prevena. Re-dress as needed. 2. Maintain RAJESH drain. 3. Continue local wound care 4. Continue medical management 5. Antibiotics per recommendations from infectious disease 6. Continue soft heel protector boots to bilateral feet 7. Encourage increased mobility/ambulation with physical therapy.
[2022-08-20] MEDS: ATORVASTATIN 80 MG TAB PO SCH (20:30)
--- NOTE | 2022-08-20 22:34 | P.PN ---
Subjective Progress Note Date: 08/20/22 Principal diagnosis: Pseudomonas bacteremia Patient is a 67-year-old female with a past medical history significant for hypertension GERD atrial fibrillation peripheral arterial disease left breast cancer presenting to the ER for evaluation of increasing shortness of breath patient did have fever and elevated white count and recently did have a left lower extremity muscular procedure with open wound to the left medial thigh and left leg subsequently with evidence of pseudomonas bacteremia. Patient is status post left-sided thoracocentesis completed on 08/10/2022 with removal of 250 mL turbid fluid culture were negative patient also have a left lower extremity CT with evidence of large left femoral pseudoaneurysm and hematoma,Patient did have a left groin exploration for control of the left femoral artery hemorrhage controlled the left external iliac endarterectomy portion stent removal, open thrombectomy of the left femoral tibial vein bypass and profunda artery patch angioplasty antibiotic beads his pain with the procedure completed on 08/15/2022 On today's evaluation that is 08/20/2022, the patient continues to be afebrile, the patient is breathing comfortably on 2 L nasal cannula oxygen, patient denies chest pain , the patient denies any worsening cough or sputum production, The patient is still complaining of pain to the left leg however has slightly decreased in intensity, no vomiting or diarrhea Objective - Vital Signs Vital signs: Vital Signs Temp 97.5 F L 08/20/22 08:23 Pulse 73 08/20/22 08:23 Resp 18 08/20/22 08:23 BP 135/65 08/20/22 08:23 Pulse Ox 96 08/20/22 08:23 FiO2 Intake & Output 08/19/22 08/20/22 08/20/22 18:59 06:59 18:59 Intake Total 378 118 Output Total 400 350 Balance -22 -350 118 Intake: IV 20 Invasive Line 5 10 Invasive Line 7 10 Oral 358 118 Output: Urine 400 350 Other: Voiding Method Indwelling Catheter Indwelling Catheter - Exam GENERAL DESCRIPTION: An elderly female lying in bed in no distress RESPIRATORY SYSTEM: Unlabored breathing , decreased breath sounds at bases HEART: S1 S2 regular rate and rhythm , ABDOMEN: Soft , no tenderness EXTREMITIES: Left thigh wound wounds covered with a wound VAC left foot is warm and no open wound or any drainage - Labs CBC & Chem 7: 08/20/22 07:04 08/20/22 07:04 Labs: Abnormal Lab Results - Last 24 Hours (Table) 08/20/22 08/20/22 Range/Units 07:04 07:04 WBC 13.8 H (3.8-10.6) k/uL RBC 2.73 L (3.80-5.40) m/uL Hgb 8.6 L (11.4-16.0) gm/dL Hct 26.4 L (34.0-46.0) % RDW 16.6 H (11.5-15.5) % Neutrophils # 12.4 H (1.3-7.7) k/uL Lymphocytes # 0.5 L (1.0-4.8) k/uL Chloride 94 L (98-107) mmol/L Carbon Dioxide 47 H* (22-30) mmol/L BUN 28 H (7-17) mg/dL Creatinine 0.41 L (0.52-1.04) mg/dL Microbiology - Last 24 Hours (Table) 08/15/22 16:36 Anaerobic Culture - Final Groin Assessment and Plan (1) Bacteremia due to Pseudomonas Current Visit: Yes Status: Acute Code(s): R78.81 - BACTEREMIA; B96.5 - PSEUDOMONAS (MALLEI) CAUSING DISEASES [facility] SNOMED Code(s): 9897457355 Plan: 1patient presented to hospital with sepsis in this patient who did a fever elevated white tachycardia and now with evidence of gram-negative bacteremia source questionably infected left lower extremity wound with a recent vascular procedure for PAD versus pneumonia however chest x-ray is most interstitial infiltrate although the patient did have elevated procalcitonin sputum cultures have been obtained which did grow pseudomonas aeruginosa 2-blood cultures repeat has been negative , pleural fluid cultures are so far negative, 3-patient did have extensive surgery to the left groin and cultures has been taken which are growing Pseudomonas which is a sensitive pathogen 4- patient to continue with the cefepime while monitor clinical course closely white count is slightly elevated and will recheck inflammatory markers with a.m. lab
--- NOTE | 2022-08-21 02:39 | P.PN ---
Subjective Progress Note Date: 08/20/22 67-year-old female patient; past medical history significant for lower extremities peripheral arterial disease as well as severe COPD and chronic hypoxic respiratory failure on oxygen and also hypertension and dyslipidemia and history of multifocal atrial tachycardia, presented to the hospital complaining of shortness of breath. The patient does have a baseline shortness of breath and she is on oxygen continuously at 2 L. For the last few days she has been experiencing increasing in the shortness of breath associated according to her and her with fever and cough productive of whitish sputum. Beside that she developed bilateral lower extremities edema. No symptoms of any chest pain or chest discomfort or dizziness or lightheadedness but she has been experiencing symptoms of heart racing and fluttering was no presyncope or syncope. The patient and her called ambulance and the patient was brought to the emergency department for further evaluation. During this admission she underwent a workup including an EKG showing what it seems to be multifocal atrial tachycardia with differential diagnosis of atrial fibrillation and also she underwent cardiac enzymes showed mildly abnormal troponin. The chest x-ray showed findings consistent with CHF. The rest of the blood work came in to be unremarkable. On examination she was in mild respiratory distress. She was also coughing during the examination. She does have bilateral expiratory wheezing and mild bilateral lower except his edema. Reviewing the vital signs revealed marginally low blood pressure with systolic pressure in the 90s. Currently she is on Cardizem IV and she is also on Lasix IV. 08/07/2022 This is a pleasant 67 years old female with multiple medical problems who was admitted initially because of dyspnea found to have acute CHF exacerbation and also she has evidence of bilateral pneumonia, she had a fever of 101.3 on admission. She still feels generally weak and tired, mildly tachypneic. Been followed by cardiology and infectious disease dating with positive blood culture for pseudomonas. And covered with abdomen Lasix 20 mg, IV Zosyn. Also she has history of COPD with chronic hypoxic respiratory failure on 2 L of oxygen at home, currently she is using before liters per minute. She has some evidence of diminished air entry in both sides under going to start prednisone 40 mg daily. She is on home dose of 0.5 mg twice a day for paroxysmal atrial fibrillation. Also she is on aspirin 325 mg. also patient follow up with Dr. Curran reported recent revascularizations surgery for his left lower extremity vascular disease, she still Dr. Curran last week and was doing well, she supposed to see him today so he was consulted 08/08/2022 Patient awake and alert, she still have little short of breath and tachypnea, however she feels better. Her cough feels better bleeding looks the same, she still have exertional dyspnea with walking. She still feels generally weak. States to have limited air entry on both lung sweell, no more fever and vitals are stable. Her abdomen Lasix switched to oral pills. Occupational Therapy Program Director on the case and she was kept on Xarelto and metoprolol and Cardizem for her A. fib, Patient also have evidence with pseudomonas bacteremia, source could be pneu monia versus left lower extremity wound, culture is been followed closely. Patient is covered with Zosyn. Infectious disease team on the case. 08/09/2022 Patient states that her leg feels better today, she still complaining of from shortness of breath although she has this wheezing and better air entry limitations to there. Also ultrasound showing bilateral pleural effusion. Vitals are stable. Patient remains on Zosyn, prednisone 40 mg and oral Lasix 20 mg twice daily. 08/10/2022 Patient is still improving slowly and gradually regarding her pneumonia, she sent in bed most of the time, she has recovered is improving with Robitussin-DM which is continued. Chest x-ray from today show significant improvement compared to a few days ago. She underwent a thoracocentesis with 250 mL of turbid fluid removed. Sputum culture is growing Pseudomonas same as blood culture, patient is currently covered with Zosyn. Also she is on a prednisone 40 mg for her possible COPD element. Cardiology team already signed off with recommendation to follow up with Dr. Stewart as an outpatient. 08/11/2022 Patient today awake alert, she still feels short of breath although reports some improvement, she has weak cough and difficult to bring in her phlegm up. Also she's been complaining from bleeding from her left groin area. A sputum culture blood culture both grown Pseudomonas, she underwent thoracocentesis and cytology is pending, she did have some pneumothorax, pulmonary team on the case, her breathing is a stable and actually is improving. Vascular surgery on the case and 0 to was put on hold because of bleeding from the surgical site of her left leg. She kept on prednisone 40 mg as per a burst taper as well as Zosyn. Surgical consult is on the case Patient remains critical. 08/12/2021 Patient had actually looks much better today compared to yesterday, she is more relaxed and pleasant she still have some dyspnea, her coughing is stronger than yesterday as well. She still hemodynamically stable. Oxygenation is improving. Yesterday she had bleeding from her left groin wound related to vascular surgery, no more bleeding today. Result is on hold. Patient remains on Zosyn Cytology is still pending 08/13/2022 Patient is improving slowly and gradually, her dyspnea significantly improved over the last 2 days, although no much difference between yesterday and today. Her cough is better as well. Also bleeding on her left groin has stopped, though remains on hold. Vascular surgery on the case. She remains on Zosyn and Protonix, also has a prednisone 40 mg burst taper. Also on oral Lasix 20 mg twice daily. 08/14/2022 Patient is currently resting in bed. Awake alert and oriented x3. Breathing status is better. Currently requiring 2 L oxygen via nasal cannula. On treatment for Pseudomonas pneumonia and Pseudomonas bacteremia with Zosyn. Otherwise patient was noticed to have bleeding from the left groin and had a recent left elective revascularization. CT of the lower extremity was done which showed there is evidence of large pseudoaneurysm of the femoral artery in the left groin. There is a large hematoma in the left groin. Subcutaneous edema lateral to the left hip. Appears to be significant occlusive disease in the left femoral artery and collateral flow with reconstituted tibial arteries below the knee. The iliac artery bypass graft which appears patent. Laboratory data showed WBC 11.8 hemoglobin 8.4 and platelets 271 Sodium 142 potassium 4.0 chloride 97 bicarb is 43 BUN 25 and creatinine 0.36 and blood sugar is 119. Pulmonary, ID and vascular surgery is on board. Pleural fluid cytology on 08/10/2022 showed reactive mesothelial cells., Macrophages and mixed inflammatory cells. No cytologically malignant cells identified. 08/15/2022 Patient is currently resting in bed. Awake alert and oriented x3. Requiring 2 L oxygen via nasal cannula. Breathing status is much improved. Patient is scheduled for Large pseudoaneurysm of the femoral artery and hematoma in the left groin. Vascular surgery and pulmonary is on board. Patient is getting 1 unit of PRBC prior to surgery. Anticoagulation is on hold. Laboratory data showed WBC 11.8 hemoglobin 8.4 and platelets 271 Sodium 142 potassium 4.0 chloride 97 bicarb is 43 BUN 25 creatinine 0.36 and blood sugar is 119. Patient is on antibiotics in the form of Zosyn. ID is on board. 08/16/2022 Patient is currently resting in bed. Awake alert and oriented x3. Requiring 2 L oxygen via nasal cannula. Remains on antibiotics of Zosyn. Otherwise patient underwent repair of pseudoaneurysm of the left femoral artery and evacuation of hematoma. SANDRA drain is in place with serosanguineous discharge. No complaints of fever or chills. No nausea vomiting abdominal pain or diarrhea. Laboratory data showed WBC 18.8 hemoglobin 9.2 and platelets 185 sodium 139 potassium 3.9 chloride 99 bicarb is 41 BUN 30 and creatinine 0.45 Vascular surgery, pulmonary and ID is on board. 08/18/2022 Patient is seen and evaluated in follow-up with multiple medical consultations following. Infectious disease following an patient is maintained on IV antibiotics and being transitioned IV cefepime. Gram stain showing pseudomonas aeruginosa and patient will be receiving a PICC line today for outpatient IV antibiotic therapy. Case management following as patient was reporting that she was going to [facility] although family and patient would like to go to [facility]. Patient has been accepted although awaiting for clearance of consultations. Vascular surgery following as well and to continue with wound care along with dressing which is in place and draining and close outpatient follow-up. Patient continues to report significant pain requiring IV pain medication as well as significant weakness and difficulty with ambulation with physical therapy following closely. WBC is trending down and currently 12.7 today, hemoglobin is stable at 8.6, potassium is 3.3 and will replace per protocol, patient is report ing of some chest pain and shortness of breath and troponins are trending down. Patient is being followed closely by pulmonary continued on prednisone along with breathing treatment and will continue. Recommend PT/OT therapy daily and increased activity as tolerated. Patient encouraged to continue with exercises well in bed as well and continued movement this patient is becoming more significantly weak each day she is here. 08/19/2022 Patient is being evaluated today being monitored closely with multiple medical consultations following including vascular surgery, infectious disease, cardi ology, and pulmonary. Patient is continued on IV antibiotics and has received a PICC line to continue with IV antibiotic therapy. Patient will be going to [facility] likely Sunday. Patient was having some increased pain although feels is somewhat controlled today. Patient is extremely weak and would recommend physical therapy daily. Patient continues with provider none dressing in place in the groin and will likely be removed by vascular surgery on Sunday. WBC is elevated although trending down and hemoglobin is currently stable above 8. Patient has been resumed on several toe and is noted to have some hematuria in the Horan catheter. Would recommend replacing Horan catheter and monitoring any further for worsening hematuria. Will follow-up with repeat labs in the a.m. 08/20/2022 Patient is seen today in follow-up pain followed by multiple medical consultations. Patient with special pressure dressing being removed today and the groin per vascular surgery and continues with SANDRA drain. Patient was noted to have some hematuria in the Horan although has improved and was continued on xarelto. There was also concerns of a hematoma noted at the PICC line site and recommended holding xarelto to monitor. Hemoglobin is stable and will resume tomorrow. Patient is currently afebrile continues to report pain and weakness and working on discharge planning to [facility] on Sunday. Will follow up with case management. Patient to continue with IV antibiotics as well with anxiety following closely Review of systems: Constitutional: No reports of fatigue, fever, or chills Cardiovascular: No reports of chest pain or palpitations Respiratory: No reports of worsening shortness of breath GI: No reports of nausea, vomiting, or diarrhea : No reports of dysuria or retention Neurovascular: reports of generalized weakness All medications have been reviewed . Active Medications Hydrocodone Bitart/Acetaminophen (Hydrocodone/Apap 5-325mg 1 Each Tab) 1 each PO Q6HR PRN PRN Reason: Pain Scale 6 to 10 Last Admin: 08/20/22 23:34 Dose: 1 each Albuterol Sulfate (Albuterol Nebulized 2.5 Mg/3 Ml) 2.5 mg INHALATION RT-TID [facility] Last Admin: 08/20/22 21:35 Dose: 2.5 mg Alprazolam (Alprazolam 0.25 Mg Tab) 0.25 mg PO BID PRN PRN Reason: Anxiety Last Admin: 08/19/22 10:26 Dose: 0.25 mg Aspirin (Aspirin 81 Mg) 81 mg PO DAILY [facility] Last Admin: 08/20/22 08:25 Dose: 81 mg Atorvastatin Calcium (Atorvastatin 80 Mg Tab) 80 mg PO HS [facility] Last Admin: 08/20/22 20:30 Dose: 80 mg Calcium Carbonate/Glycine (Calcium Carbonate 500 Mg Chewable) 1,000 mg PO QID PRN PRN Reason: Heartburn Last Admin: 08/13/22 17:10 Dose: 1,000 mg Cholecalciferol (Cholecalciferol 25 Mcg (1000 Iu) Tablet) 50 mcg PO DAILY [facility] Last Admin: 08/20/22 08:24 Dose: 50 mcg Collagenase (Collagenase 250 Unit/Gm Ointment 30 Gm Tube) 1 applic TOPICAL DAILY [facility]; Protocol Last Admin: 08/20/22 11:47 Dose: Not Given Diltiazem HCl (Diltiazem Oral 30 Mg Tab) 30 mg PO TID [facility] Last Admin: 08/20/22 20:29 Dose: 30 mg Docusate Sodium (Docusate 100 Mg Cap) 100 mg PO DAILY [facility] Last Admin: 08/20/22 08:24 Dose: 100 mg Furosemide (Furosemide 20 Mg Tab) 20 mg PO BID@0900,1600 [facility] Last Admin: 08/20/22 16:11 Dose: 20 mg Gabapentin (Gabapentin 300 Mg Cap) 300 mg PO TID [facility] Last Admin: 08/20/22 20:30 Dose: 300 mg Guaifenesin/Dextromethorphan (Guaifenesin-Dm 600/30mg 1 Each Tab.Er.12h) 2 each PO Q12HR [facility] Last Admin: 08/20/22 20:30 Dose: 2 each Hydromorphone HCl (Hydromorphone 0.5 Mg/0.5 Ml Syringe) 0.5 mg IVP Q3HR PRN PRN Reason: Pain Last Admin: 08/20/22 15:01 Dose: 0.5 mg Hydroxychloroquine Sulfate (Hydroxychloroquine Sulfate 200 Mg Tab) 200 mg PO BID [facility] Last Admin: 08/20/22 20:30 Dose: 200 mg Sodium Chloride (Saline 0.9%) 1,000 mls @ 20 mls/hr IV .Q24H [facility] Last Admin: 08/20/22 11:47 Dose: Not Given Cefepime HCl 2 gm/ Sodium (Chloride) 100 mls @ 25 mls/hr IVPB Q8H [facility]; Protocol Last Admin: 08/20/22 20:30 Dose: 25 mls/hr Letrozole (Letrozole 2.5 Mg Tab) 2.5 mg PO DAILY [facility] Last Admin: 08/20/22 08:24 Dose: 2.5 mg Metoprolol Tartrate (Metoprolol Tartrate 25 Mg Tab) 25 mg PO BID [facility] Last Admin: 08/20/22 20:30 Dose: 25 mg Miscellaneous Information (Potassium Replacement Protocol 1 Each Misc) 1 each MISCELLANE DAILY PRN; Protocol PRN Reason: Per Protocol Non-Formulary Medication (Fluticasone Propion/Salmeterol [Advair 500-50 Diskus]) 1 puff INHALATION RT-BID [facility] Last Admin: 08/20/22 21:35 Dose: 1 puff Pantoprazole Sodium (Pantoprazole 40 Mg Tablet) 40 mg PO AC-BID [facility] Last Admin: 08/20/22 16:12 Dose: 40 mg Prednisone (Prednisone 20 Mg Tab) 40 mg PO DAILY [facility] Last Admin: 08/20/22 08:25 Dose: 40 mg Promethazine HCl (Promethazine 25 Mg Tab) 12.5 mg PO Q6HR PRN PRN Reason: Nausea And Vomiting Tiotropium [place] (Tiotropium 2.5 Mcg Inhaler) 2 puff INHALATION RT-DAILY [facility] Last Admin: 08/20/22 07:40 Dose: 2 puff Physical exam: GENERAL: The patient is alert and oriented x3, not in any acute distress. Thin built, elderly appearing. Generally weak HEENT: Pupils are round and equally reacting to light. EOMI. No scleral icterus. No conjunctival pallor. Normocephalic, atraumatic. No pharyngeal erythema. No thyromegaly. CARDIOVASCULAR: S1 and S2 present. No murmurs, rubs, or gallops. PULMONARY: Chest is clear to auscultation, no wheezing or crackles. Decreased air entry on both sides ABDOMEN: Soft, nontender, nondistended, normoactive bowel sounds. No palpable organomegaly. Left groin surgical site with SANDRA drain MUSCULOSKELETAL: No joint swelling or deformity. EXTREMITIES: No cyanosis, clubbing, or pedal edema. NEUROLOGICAL: Gross neurological examination did not reveal any focal deficits. Diffusely weak SKIN: No rashes. no petechiae. Assessment: -Bilateral pneumonia secondary to pseudomonas. Status post left thoracocentesis with 50 mL of turbid fluid removed on 08/10. Fluid cytology showed no malignant cells. -Pseudomonas bacteremia -Hematuria, most likely secondary to xarelto, improving -Large left groin pseudoaneurysm with recent history of left lower extremity revascularization. -Pseudoaneurysm left femoral artery, left groin hematoma. S/p repair and evacuation of hematoma on 08/15/2022. -Mild acute blood loss anemia secondary to above -Acute CHF exacerbation -Paroxysmal atrial fibrillation's with elevated troponin -Acute COPD exacerbation -Moderate left pneumothorax -Acute on chronic hypoxic respiratory failure -Cyanosis present on admission with fever and leukocytosis -Peripheral vascular disease status post recent revascularization of the left lower extremity with open wound, with bleeding from one side and hematoma of the left groin Plan: S/p repair of Pseudoaneurysm and evacuation of hematoma on 08/15/2022. Continue with cefepime per ID recommendations and patient received PICC line and continue on antibiotic therapy Xeralto being resumed and will continue for now although recommend monitoring hemoglobin and further bleeding closely as patient was noted to have some blood in the Horan. Hemoglobin is stable at 8 today and will follow-up with repeat labs. Recommend replacing indwelling Horan catheter Continue with prednisone burst taper and breathing treatment Continue with oral Lasix, pulmonary, vascular surgeon and infectious disease following and appreciate input and recommendations. PT/OT: Evaluating the patient recommending rehab patient is agreeable with case management following and planning on going to Sunday Vascular surgery following with prevana dressing removed today, continues with sandra drain Recommend close monitoring and continuing with pain management and local wound care Due to multiple complex medical issues, Prognosis is guarded The impression and plan of care has been dictated as a scribe by Roslyn Desai, Nurse Practitioner as directed. Dr. Michaelle MD I have performed a history and examination and MDM of this patient, discussed the same with the dictator, and will be documented as a scribe. Based on total visit time, I have performed more than 50% of the visit. Objective - Vital Signs Vital signs: Vital Signs Temp 98 F 08/20/22 23:32 Pulse 67 08/20/22 23:32 Resp 14 08/20/22 23:32 BP 124/72 08/20/22 23:32 Pulse Ox 100 08/20/22 23:32 FiO2 Intake & Output 08/20/22 08/20/2223 06:59 18:59 06:59 Intake Total 118 778 Output Total 350 475 250 Balance -232 303 -250 Intake: IV 20 Invasive Line 5 20 Intake, IV Titration 100 Amount Cefepime 2 gm In Sodium 100 Chloride 0.9% 100 ml @ 25 mls/hr IVPB Q8H [facility] Rx#: [id number] Oral 118 658 Output: Drainage 25 Left Groin 25 Urine 350 450 250 Other: Voiding Method Indwelling Catheter Indwelling Catheter Indwelling Catheter # Bowel Movements 0 - Labs CBC & Chem 7: 08/20/22 07:04 08/20/22 07:04 Labs: Abnormal Lab Results - Last 24 Hours (Table) 08/20/22 08/20/22 Range/Units 07:04 07:04 WBC 13.8 H (3.8-10.6) k/uL RBC 2.73 L (3.80-5.40) m/uL Hgb 8.6 L (11.4-16.0) gm/dL Hct 26.4 L (34.0-46.0) % RDW 16.6 H (11.5-15.5) % Neutrophils # 12.4 H (1.3-7.7) k/uL Lymphocytes # 0.5 L (1.0-4.8) k/uL Chloride 94 L (98-107) mmol/L Carbon Dioxide 47 H* (22-30) mmol/L BUN 28 H (7-17) mg/dL Creatinine 0.41 L (0.52-1.04) mg/dL Microbiology - Last 24 Hours (Table) 08/15/22 16:36 Anaerobic Culture - Final Groin
[2022-08-21] MEDS: CEFEPIME 2 GM in SODIUM CHLORIDE 0.9% 100 ML IVPB SCH ×2 (03:56→13:56)
[2022-08-21] MEDS: HYDROcodone/APAP 5-325MG 1 EACH TAB PO PRN ×3 (06:23→17:38)
[2022-08-21] MEDS: PANTOPRAZOLE 40 MG TABLET PO SCH ×2 (06:23→17:38)
[2022-08-21] MEDS: ALBUTEROL NEBULIZED 2.5 MG/3 ML INHALATION SCH ×2 (08:01→13:35)
[2022-08-21] MEDS: TIOTROPIUM 2.5 MCG INHALER INHALATION SCH (08:01)
[2022-08-21] MEDS: NON FORMULARY DRUG (Fluticasone Propion/Salmeterol [Advair 500-50 Diskus] 1 EACH Blst.W.De INHALATION SCH ×2 (08:02→08:21)
[2022-08-21 09:41] LABS: Anisocytosis Slight; Basophils % (A) 0 %; Eosinophils # (A) 0.1 k/uL (0-0.7); Eosinophils % (A) 1 %; HCT 28.2 % (34.0-46.0); Hypochromasia Moderate; Lymphocytes # (A) 0.6 k/uL (1.0-4.8); Lymphocytes % (A) 6 %; MCH 31.3 pg (25.0-35.0); MCHC 31.9 g/dL (31.0-37.0); MCV 98.2 fL (80.0-100.0); Macrocytosis Slight; Mean Platelet Volume 8.9; Monocytes # (A) 0.4 k/uL (0-1.0); Monocytes % (A) 4 %; Neutrophils # (A) 9.6 k/uL (1.3-7.7); Neutrophils % (A) 89 %; Platelet Count 175 k/uL (150-450); Poikilocytosis Slight; RBC 2.87 m/uL (3.80-5.40); RDW 16.7 % (11.5-15.5); WBC 10.8 k/uL (3.8-10.6)
[2022-08-21] MEDS: SODIUM CHLORIDE 0.9% 1,000 ML IV SCH (10:07)
[2022-08-21] MEDS: FUROSEMIDE 20 MG TAB PO SCH ×2 (10:30→17:37)
[2022-08-21] MEDS: DOCUSATE 100 MG CAP PO SCH (10:30)
[2022-08-21] MEDS: ASPIRIN 81 MG PO SCH (10:30)
[2022-08-21] MEDS: METOPROLOL TARTRATE 25 MG TAB PO SCH (10:30)
[2022-08-21] MEDS: GABAPENTIN 300 MG CAP PO SCH ×2 (10:30→17:38)
[2022-08-21] MEDS: LETROZOLE 2.5 MG TAB PO SCH (10:31)
[2022-08-21] MEDS: DILTIAZEM ORAL 30 MG TAB PO SCH ×2 (10:31→17:38)
[2022-08-21] MEDS: predniSONE 20 MG TAB PO SCH (10:31)
[2022-08-21] MEDS: CHOLECALCIFEROL 25 MCG (1000 IU) TABLET PO SCH (10:31)
[2022-08-21] MEDS: HYDROXYCHLOROQUINE SULFATE 200 MG TAB PO SCH (10:32)
[2022-08-21] MEDS: guaiFENesin-DM 600/30MG 1 EACH TAB.ER.12H PO SCH (10:32)
--- NOTE | 2022-08-21 11:30 | P.PN ---
Subjective Progress Note Date: 08/21/22 Principal diagnosis: Shortness of breath, left femoral artery pseudoaneurysm with bleed, left femoral patch leak Patient is seen and examined today as a follow-up. She states that she is feeling a lot better today. Her breathing improved. Pain improved to the left lower extremity and foot. Having continued serosanguineous drainage from RAJESH drain. States that she's been working with physical therapy through the weekend. She's been afebrile. Objective - Vital Signs Vital signs: Vital Signs Temp 97.8 F 08/21/22 03:51 Pulse 74 08/21/22 08:22 Resp 14 08/21/22 03:51 BP 111/64 08/21/22 03:51 Pulse Ox 96 08/21/22 08:08 FiO2 Intake & Output 08/20/22 08/21/22 08/21/22 18:59 06:59 18:59 Intake Total 778 240 Output Total 475 515 Balance 303 -515 240 Intake: IV 20 Invasive Line 5 20 Intake, IV Titration 100 Amount Cefepime 2 gm In Sodium 100 Chloride 0.9% 100 ml @ 25 mls/hr IVPB Q8H [facility] Rx#: [id number] Oral 658 240 Output: Drainage 25 15 Left Groin 25 15 Urine 450 500 Other: Voiding Method Indwelling Catheter Indwelling Catheter # Bowel Movements 0 - Exam General appearance: The patient is alert, oriented, appears in no acute distress. HET: Head is normocephalic and atraumatic. Pupils are equal and reactive. Neck: Supple without lymphadenopathy. Trachea midline. Extremities: Left groin incision intact, RAJESH drain with serosanguineous drainage. Left lower extremity dressing clean dry and intact, no foul odor. Palpable bypass graft. Doppler signal left PT and DP. Sensorimotor intact. Neurological: No focal deficits. - Labs CBC & Chem 7: 08/21/22 08:51 08/20/22 07:04 Labs: Abnormal Lab Results - Last 24 Hours (Table) 08/21/22 Range/Units 08:51 WBC 10.8 H (3.8-10.6) k/uL RBC 2.87 L (3.80-5.40) m/uL Hgb 9.0 L (11.4-16.0) gm/dL Hct 28.2 L (34.0-46.0) % RDW 16.7 H (11.5-15.5) % Neutrophils # 9.6 H (1.3-7.7) k/uL Lymphocytes # 0.6 L (1.0-4.8) k/uL Assessment and Plan Assessment: 1. Pseudoaneurysm left femoral artery, hemorrhage, and left femoral patch peak status post vascular surgical repair with incisional vac placement 2. Acute on chronic anemia 3. COPD exacerbation 4. CHF exacerbation 5. Recent left lower extremity revascularization, with open wounds 6. Peripheral arterial disease 7. Atrial fibrillation on Xarelto, currently on hold 8. Bacteremia with pseudomonas aeruginosa, sputum culture positive for Pseudomonas aeruginosa 9. Bilateral lower lobe pneumonia Plan: 1. Keep RAJESH drain in place for discharge 2. Continue local wound care 3. Continue medical management 4. Antibiotics per recommendations from infectious disease 5. Soft heel protector boots to bilateral feet 6. Encourage increased mobility/ambulation with physical therapy. Also discussed with patient importance of range of motion in bed with bilateral lower extremities. Patient verbalized understanding. Thank you for this consultation. The patient is cleared from vascular surgery for discharge. Patient will need outpatient follow-up with Dr. Garcia and wound care center. The impression and plan of care has been dictated as directed. Dr. Garcia I performed a history and examination of this patient, discussed the same with the dictator. I agree with the dictator's note ,documented as a scribe. Any additional findings or plans will be noted.
[2022-08-21 12:00] LABS: ALT 39 U/L (4-34); AST 23 U/L (14-36); African American GFR (CKD) >90 (>60 ml/min/1.73 sqM); Albumin 2.6 g/dL (3.5-5.0); Alkaline Phosphatase 66 U/L (38-126); Blood Urea Nitrogen 26 mg/dL (7-17); Calcium 8.7 mg/dL (8.4-10.2); Chloride 93 mmol/L (98-107); Glucose 142 mg/dL (74-99); Non-African American GFR(CKD) >90 (>60 ml/min/1.73 sqM); Potassium 3.7 mmol/L (3.5-5.1); Sodium 139 mmol/L (137-145); Total Bilirubin 0.4 mg/dL (0.2-1.3); Total Protein 4.5 g/dL (6.3-8.2)
[2022-08-21 12:21] LABS: Carbon Dioxide 41 mmol/L (22-30)
[2022-08-21 12:24] LABS: Anion Gap 5 mmol/L
[2022-08-21 12:30] VITALS: RESP 16
[2022-08-21 12:36] LABS: C Reactive Protein <0.5 mg/dL (<1.0)
--- NOTE | 2022-08-21 13:37 | P.DS ---
Providers Date of admission: 08/06/22 06:11 Expected date of discharge: 08/21/22 Attending physician: Lauro Bauman MD Consults: 08/06/22 18:16 Consult Physician Routine Consulting Provider: Azar Garcia Consult Reason/Comments: RECENT SURGERY, PURULENT DRAINAGE FROM INCISION Do you want consulting provider notified?: Yes, Notify in am 08/07/22 12:40 Consult Physician Urgent Consulting Provider: Roman Wilkins Consult Reason/Comments: pseudomonas bactremia Do you want consulting provider notified?: Already Contacted 08/08/22 12:37 Consult Physician Routine Consulting Provider: Cecilia Munson Consult Reason/Comments: wheezing Do you want consulting provider notified?: Yes 08/17/22 13:57 Consult Physician Routine Consulting Provider: James Alejandre Consult Reason/Comments: inpatient rehab Do you want consulting provider notified?: Yes Primary care physician: J[facility] Course: Final diagnosis -Bilateral pneumonia secondary to pseudomonas. Status post left thoracocentesis with 50 mL of turbid fluid removed on 08/10. Fluid cytology showed no malignant cells. -Pseudomonas bacteremia -Hematuria, most likely secondary to xarelto, improving -Large left groin pseudoaneurysm with recent history of left lower extremity revascularization. -Pseudoaneurysm left femoral artery, left groin hematoma. S/p repair and evacuation of hematoma on 08/15/2022. -Mild acute blood loss anemia secondary to above -Acute CHF exacerbation -Paroxysmal atrial fibrillation's with elevated troponin -Acute COPD exacerbation -Moderate left pneumothorax -Acute on chronic hypoxic respiratory failure -Sepsis present on admission with fever and leukocytosis -Peripheral vascular disease status post recent revascularization of the left lower extremity with open wound, with bleeding from one side and hematoma of the left groin Discharge disposition Patient is being discharged in a stable condition with guarded prognosis to [facility] . Patient will follow-up with Dr. Elise in the outpatient setting upon discharge. Patient is to follow-up with vascular surgery, cardiology, the wound center, infectious disease in the outpatient setting as scheduled. Patient has received a PICC line and will continue on IV cefepime per ID recommendations and close outpatient follow-up. Total time taken is greater than 35 minutes. Hospital course This is a 67-year-old female who was recently admitted with bilateral pneumonia and multiple medical complications. Patient is status post left thoracentesis along with Pseudomonas bacteremia and being followed closely by infectious disease. Patient will receive a PICC line and continue on IV antibiotics in the form of cefepime. Patient also had a left groin large pseudoaneurysm underwent repair and evacuation of the hematoma and has had special dressing removed. Patient being followed by vascular surgery being resumed on Xarelto and recommend continue and monitor closely. Patient will need close outpatient follow-up with multiple medical consultations as mentioned previously. Patient has been cleared by consultations for discharge. Please refer to other consultation notes for further HPI. Currently no reports of chest pain, shortness of breath, or palpitations. Patient is afebrile. No reports of nausea or vomiting and patient is tolerating diet. Patient will be going to [facility] today. Guarded prognosis and high risk for readmissions. Physical exam: Gen: This is a 67-year-old female who is awake, alert and oriented 3, thin built, elderly appearing HEENT: Head is atraumatic, normocephalic. Pupils equal, round. Sclerae is anicteric. NECK: Supple. No JVD. No lymphadenopathy. No thyromegaly. LUNGS: Diminished breath sounds bilaterally with some scattered rhonchi. No intercostal retractions. HEART: Regular rate and rhythm. No murmur. ABDOMEN: Soft. Bowel sounds are present. No masses. No tenderness. EXTREMITIES: No pedal edema. No calf tenderness. NEUROLOGICAL: Patient is awake, alert and oriented x3. Cranial nerves 2 through 12 are grossly intact. Diffusely weak Please refer to medication reconciliation sheet for a list of medications. The impression and plan of care has been dictated by Roslyn Desai, Nurse Practitioner as directed. Dr. Harry MD I have performed a history and examination and MDM of this patient, discussed the same with the dictator, and agree with the dictator's assessment and plan as written ,documented as a scribe. Based on total visit time, I have performed more than 50% of the visit. Patient Condition at Discharge: Fair Plan - Discharge Summary Discharge Rx Participant: No New Discharge Prescriptions: New Aspirin 81 mg PO DAILY tab Diltiazem Oral [Cardizem*] 30 mg PO TID tab Metoprolol Tartrate [Lopressor] 25 mg PO BID tab guaiFENesin-DM 600/30MG [Mucinex Dm] 2 each PO Q12HR tab HYDROcodone/APAP 5-325MG [[place] 5-325] 1 each PO Q6HR PRN #6 tab PRN Reason: Pain Scale 6 To 10 predniSONE 10 mg PO DIRECTED #30 tab Pantoprazole [Protonix] 40 mg PO AC-BID tab Collagenase [Santyl Ointment] 1 applic TOPICAL DAILY each Cefepime [Maxipime] 2 gm IVPB Q8H #63 each Furosemide [Lasix] 20 mg PO BID@0900,1600 tab Gabapentin [Neurontin] 300 mg PO TID #6 cap Promethazine [Phenergan] 12.5 mg PO Q6HR PRN tab PRN Reason: Nausea And Vomiting Continue Hydroxychloroquine Sulfate [Plaquenil] 200 mg PO BID Fluticasone Propion/Salmeterol [Advair 500-50 Diskus] 1 puff INHALATION RT- BID Levalbuterol Hfa Inhaler [Xopenex Hfa Inhaler] 1 puff INHALATION RT-Q6H PRN PRN Reason: Shortness Of Breath Calcium Carbonate [Calcium] 1,200 mg PO DAILY Letrozole [Femara] 2.5 mg PO DAILY Atorvastatin [Lipitor] 80 mg PO HS #90 tab Tiotropium 2.5 Mcg/Puff [Spiriva Respimat 2.5 Mcg] 2 puff INHALATION RT-DAILY Cholecalciferol [Vitamin D3 (25 Mcg = 1000 Iu)] 50 mcg PO DAILY Rivaroxaban [Xarelto] 2.5 mg PO BID #60 tab ALPRAZolam [Xanax] 0.25 mg PO BID PRN #4 tab PRN Reason: Anxiety Albuterol Nebulized [Ventolin Nebulized] 2.5 mg INHALATION RT-QID PRN PRN Reason: Shortness Of Breath Docusate [Colace] 100 mg PO DAILY buPROPion HCL [Wellbutrin SR] 100 mg PO DAILY Discontinued Gabapentin [Neurontin] 300 mg PO BID Pantoprazole Sodium [Protonix] 40 mg PO BID #60 tab Furosemide [Lasix] 20 mg PO DAILY hydroCHLOROthiazide [Hydrodiuril] 25 mg PO DAILY Aspirin 325 mg PO DAILY tab Gabapentin [Neurontin] 400 mg PO TID Metoprolol Tartrate [Lopressor] 12.5 mg PO BID 30 Days #60 tab predniSONE See Taper PO DIRECTED Discharge Medication List Hydroxychloroquine Sulfate [Plaquenil] 200 mg PO BID 03/29/15 [History] Fluticasone Propion/Salmeterol [Advair 500-50 Diskus] 1 puff INHALATION RT-BID 05/31/16 [History] Levalbuterol Hfa Inhaler [Xopenex Hfa Inhaler] 1 puff INHALATION RT-Q6H PRN 04/07/19 [History] Calcium Carbonate [Calcium] 1,200 mg PO DAILY 04/29/19 [History] Letrozole [Femara] 2.5 mg PO DAILY 10/23/19 [History] Albuterol Nebulized [Ventolin Nebulized] 2.5 mg INHALATION RT-QID PRN 11/04/20 [History] Docusate [Colace] 100 mg PO DAILY 01/09/21 [History] buPROPion HCL [Wellbutrin SR] 100 mg PO DAILY 01/09/21 [History] Atorvastatin [Lipitor] 80 mg PO HS #90 tab 07/29/21 [Rx] Cholecalciferol [Vitamin D3 (25 Mcg = 1000 Iu)] 50 mcg PO DAILY 08/03/21 [History] Tiotropium 2.5 Mcg/Puff [Spiriva Respimat 2.5 Mcg] 2 puff INHALATION RT-DAILY 08/03/21 [History] Rivaroxaban [Xarelto] 2.5 mg PO BID #60 tab 07/25/22 [Rx] Cefepime [Maxipime] 2 gm IVPB Q8H #63 each 08/18/22 [Rx] ALPRAZolam [Xanax] 0.25 mg PO BID PRN #4 tab 08/21/22 [Rx] Aspirin 81 mg PO DAILY tab 08/21/22 [Rx] Collagenase [Santyl Ointment] 1 applic TOPICAL DAILY each 08/21/22 [Rx] Diltiazem Oral [Cardizem*] 30 mg PO TID tab 08/21/22 [Rx] Furosemide [Lasix] 20 mg PO BID@0900,1600 tab 08/21/22 [Rx] Gabapentin [Neurontin] 300 mg PO TID #6 cap 08/21/22 [Rx] HYDROcodone/APAP 5-325MG [Columbus 5-325] 1 each PO Q6HR PRN #6 tab 08/21/22 [Rx] Metoprolol Tartrate [Lopressor] 25 mg PO BID tab 08/21/22 [Rx] Pantoprazole [Protonix] 40 mg PO AC-BID tab 08/21/22 [Rx] Promethazine [Phenergan] 12.5 mg PO Q6HR PRN tab 08/21/22 [Rx] guaiFENesin-DM 600/30MG [Mucinex Dm] 2 each PO Q12HR tab 08/21/22 [Rx] predniSONE 10 mg PO DIRECTED #30 tab 08/21/22 [Rx] Follow up Appointment(s)/Referral(s): Mckinley Stewart MD [STAFF PHYSICIAN] - 2 Weeks Azar Garcia DO [STAFF PHYSICIAN] - 1 Week Jaxon Osullivan DO [Primary Care Provider] - 1-2 days [facility] [NON-STAFF] - 1 Week Roman Wilkins MD [STAFF PHYSICIAN] - 1 Week [facility], [NON-STAFF] - Ambulatory/Diagnostic Orders: C Reactive Protein [LAB.AMB] Location: None Selected Complete Blood Count w/diff [LAB.AMB] Location: None Selected Comprehensive Metabolic Panel [LAB.AMB] Location: None Selected Erythrocyte Sedimentation Rate [LAB.AMB] Location: None Selected Activity/Diet/Wound Care/Special Instructions: Avoid heavy lifting greater than 10 lbs , pushing, pulling, straining, flights of stairs Sponge bath until Prevena dressing removed. May shower but no baths, pools, soaking in tubs for three days to avoid risk of infection. signs of infection ie: fever, rash, drainage from puncture site, swelling contact doctor or return to ER immediately. Heavy bleeding from puncture site apply firm direct pressure and return to ER. Do not attempt to drive self. low sodium/low fat diet Wound care left medial thigh and left medial calf: cleanse with normal saline, apply Santyl, saline moistened gauze, dry gauze, rolled gauze and secure with paper tape daily. Discharge Disposition: TRANSFER TO SNF/ECF
--- NOTE | 2022-08-21 15:59 | P.PN ---
Subjective Progress Note Date: 08/21/22 67-year-old female patient who presented to the hospital having fever and some worsening shortness of breath. The patient is known to have advanced COPD and she has undergone [place] valve insertion regarding her advanced COPD and the patient has been maintained on a combination of Spiriva and Advair an outpatient basis. The patient is oxygen dependent. The patient does also use oxygen at 2 L per minute nasal cannula at baseline. Noted the patient was in the hospital approximately 3 weeks ago and the patient underwent a vascular/femoral endarterectomy on her left femoral artery for symptomatic claudication. At that time, I took care of this patient in the intensive care unit. The patient is a lso has severe peripheral vascular disease and she has undergone prior stenting to her bilateral common iliacs and external iliacs and subsequently she required the left femoral and left profunda endarterectomy and left femoral to tibial peroneal trunk bypass. Postop, she developed some swelling in lower extremity and she does have a 4.1 and in her upper thigh with some purulent drainage at the base. During this current hospital stay, the patient was found to be septic. Blood culture was positive for pseudomonas aeruginosa and the patient was seen by infectious disease and the patient was started on IV Zosyn. Meanwhile, the patient is having worsening shortness of breath, cough and conge stion. She has excessively congestive cough. She is unable to bring up much of sputum. Her sputum sample has been collected and is showing some few gram- negative bacilli. Her initial white cell count was at 17.2 and dropped down to 14.7. Her pro calcitonin level was 8.0. The chest x-ray showing bilateral lower lobe pulmonary infiltrates and the patient also has a some mild thoracic kyphosis and anterior wedging of the lower was thoracic vertebral and order of 30%. On 08/09/2022, the patient is still complaining of shortness of breath. As mentioned, the patient advanced COPD. For now, sputum is growing gram-negative bacillus and the patient has blood cultures is positive for pseudomonas aeruginosa. The patient is on IV Zosyn. This is most likely bilateral pneumonia with secondary sepsis. At the same time, CAT scan of the chest was done that showed limited infiltration of the lung bases and small to moderate- sized bilateral pleural effusion the lung bases. There is extensive emphysema bilaterally. Meanwhile, the patient is still having a congested cough. Unable to bring up much of sputum. No fever. No chills. No other new complaints otherwise for now. On 08/10/2022, the patient's condition is essentially the same. Sputum sample was positive for pseudomonas aeruginosa. Blood culture was also positive for pseudomonas aeruginosa the patient is currently on IV Zosyn. The patient bilateral pleural effusion. Ultrasound marking of the chest was done and I perf ormed a left-sided thoracentesis today and the patient able to 10% pneumothorax on the left. Total amount of fluid removed was around 250 mL. The patient remained hemodynamically stable. The patient reported improvement in her shortness of breath following the procedure. Nevertheless, she continues to have a congested cough. She is on Mucinex. Unable to bring up much of sputum. The WBC count is improving the white second of 11.6 with a hemoglobin of 9.8. BUN is at 25 with a creatinine of 0.5 and a sodium is at 140. On today's evaluation of 08/11/2022, the patient continues to have a congestive cough, unable to bring up much of sputum. She suffers from pseudomonal bilateral lower lobe pneumonia and bilateral pleural effusion. I performed a thoracentesis fluid on the left external to be transudate. She ended up having a temperature pneumothorax on the left. A repeat chest x-ray will be done today. Meanwhile, earlier this morning, the patient had an acute hemorrhage from her left groin. The surgical once from her previous vascular surgery the past. This wound was developed by vascular surgery. Pressure was applied and currently there is no evidence of any acute bleeding. She is weak. On her blood work, the WBC was 11.6 with a hemoglobin 9.8, BUN is 25 with a creatinine of 0.5 and a sodium level is 140 08/12/2022, slightly improved compared to yesterday, continued to have congestive cough. The repeat chest x-ray was done that showed persistent lower lobe pneumonia. The left-sided pneumothorax remains unchanged. The pleural fluid that was aspirated is a transudate. No other new complaints. No active bleeding from the surgical one-sided. No new labs from today. Remains on bronchodilators. Remains on IV Zosyn. Remains on prednisone. She is complai leydi of heartburn. She'll be given Protonix in addition to Tums for her ongoing active symptoms of heartburn. On today's evaluation of 08/13/2022, respiratory status is slightly improved and the patient's cough and congestion is gradually improving. Her cough is better. She remains on oxygen by nasal cannula. She remains on IV Zosyn. She remains on bronchodilators, Spiriva, prednisone patient is also on oral Lasix 20 mg by mouth twice a day. She is complaining of heartburn and the patient remains on accommodation of Protonix and Tums. She did have another episode of bleeding from her left groin incision and she currently has a pressure dressing applied. Vascular surgeries on the case and they're informed. No evidence of any hematoma. Hemoglobin is at 9.0 which is essentially stable. Patient was seen today on 08/14/2022, doing well from the pulmonary perspective, feeling much better, breathing easier, however she is experiencing bleeding from her left groin which is being addressed now by vascular surgery. Patient had recent the left lower extremity revascularization and a draining hematoma of the left inguinal area with no evidence of pseudoaneurysm. Continues to have a pressure dressing in the left groin, and again this is being addressed by vascular surgery on the case. Labs today showed WBC count of 10.3 hemoglobin is 9.1, elective lites are normal bicarb is 43 renal profile is normal. Ultrasound of the left groin done recently showed a fluid collection [id number] hypoechoic area, consistent with hematoma there was no evidence of pseudoaneurysm. Last chest x-ray from 08/11 showed evidence of minimal left-sided pneumothorax and trace of pleural effusions. Pleural effusion cytology showed no evidence of malignancy. Reevaluated today on 08/15/2022, patient is continuing to do well from the pulmonary perspective, however her CT angiogram of the left femoral artery showed evidence of pseudoaneurysm, hematoma, and the patient is now being evaluated for possible surgery for her large pseudoaneurysm of the femoral artery and hematoma in the left groin. Her iliac artery bypass graft appeared patent. Patient will receive a unit of packed RBCs prior to her surgery, and the surgery scheduled sometime later this afternoon, and Xarelto remains on hold. Reevaluated today on 08/16/2022, patient underwent surgery by vascular surgery, and she had repair of a pseudoaneurysm of the left femoral artery and evacuation of hematoma. She had a RAJESH in place draining some serosanguineous drainage. Pulmonary-shearer patient is doing well, not much of any illness symptoms except occasional cough, advised to be more compliant with her incentive spirometry at bedside. WBC count is 18.8 hemoglobin is 9.2. Basic metabolic profile is normal except bicarb of 41 with normal renal profile. Last chest x-ray was from 08/11/2022. Will likely recommend repeat chest x-ray to be done in the next 24 hours. The patient is seen today 08/17/2022 in follow-up on the selective care unit. She is currently resting fairly comfortably in bed. Awake and alert in no acute distress. Multiple family members at the bedside. Follow-up chest x-ray reveals a small effusion but not enough to consider a thoracentesis at this time. She is maintaining good O2 saturation in the 90s on 3 L nasal cannula. Afebrile. No worsening left groin pain. Continues with excessive bruising. Prevena wound VAC in place. RAJESH drain remains in place. Left lower extremity dressing dry and intact. Doppler pulses. The patient is seen today 08/21/2022 in follow-up on the selective care unit. She is sitting up in bed. Awake and alert in no acute distress. He denies any worsening shortness of breath, cough or congestion. Blood and sputum and blood cultures were all positive for pseudomonas aeruginosa earlier this admission. She is status post 2 units of packed red blood cells this admission. Today's hemoglobin is 9.0. White count 10.8. Sodium 139. Potassium 3.7. Bicarb 41. BUN 26. Creatinine 0.43. Glucose 142. Currently virus by PCR not detected. The plan is to discharge to [facility] for subacute rehabilitation. Objective - Vital Signs Vital signs: Vital Signs Temp 98.0 F 08/21/22 10:10 Pulse 74 08/21/22 13:52 Resp 16 08/21/22 12:00 BP 115/36 08/21/22 12:00 Pulse Ox 97 08/21/22 12:00 FiO2 Intake & Output 08/20/22 08/21/22 08/21/22 18:59 06:59 18:59 Intake Total 778 240 Output Total 475 515 15 Balance 303 -515 225 Weight 53 kg Intake: IV 20 Invasive Line 5 20 Intake, IV Titration 100 Amount Cefepime 2 gm In Sodium 100 Chloride 0.9% 100 ml @ 25 mls/hr IVPB Q8H [facility] Rx#: [id number] Oral 658 240 Output: Drainage 25 15 15 Left Groin 25 15 15 Urine 450 500 Other: Voiding Method Indwelling Catheter Indwelling Catheter Indwelling Catheter # Bowel Movements 0 - Exam GENERAL EXAM: Alert, pleasant 67-year-old female, on 3 L nasal cannula, comfortable in no apparent distress. HEAD: Normocephalic. EYES: Normal reaction of pupils, equal size. NOSE: Clear with pink turbinates. THROAT: No erythema or exudates. NECK: No masses, no JVD. CHEST: No chest wall deformity. LUNGS: Equal air entry with no crackles, wheezes or rhonchi. Diminished. CVS: S1 and S2 normal with no audible murmur, regular rhythm. ABDOMEN: No hepatosplenomegaly, normal bowel sounds, no guarding or rigidity. SPINE: No scoliosis or deformity SKIN: No rashes CENTRAL NERVOUS SYSTEM: No focal deficits, tone is normal in all 4 extremities. EXTREMITIES: Left groin incision intact, RAJESH drain in place. Left lower extremity dressing dry and intact. Doppler pulses. - Labs CBC & Chem 7: 08/21/22 08:51 08/21/22 08:51 Labs: Abnormal Lab Results - Last 24 Hours (Table) 08/21/22 08/21/22 Range/Units 08:51 08:51 WBC 10.8 H (3.8-10.6) k/uL RBC 2.87 L (3.80-5.40) m/uL Hgb 9.0 L (11.4-16.0) gm/dL Hct 28.2 L (34.0-46.0) % RDW 16.7 H (11.5-15.5) % Neutrophils # 9.6 H (1.3-7.7) k/uL Lymphocytes # 0.6 L (1.0-4.8) k/uL Chloride 93 L (98-107) mmol/L Carbon Dioxide 41 H* (22-30) mmol/L BUN 26 H (7-17) mg/dL Creatinine 0.43 L (0.52-1.04) mg/dL Glucose 142 H (74-99) mg/dL ALT 39 H (4-34) U/L Total Protein 4.5 L (6.3-8.2) g/dL Albumin 2.6 L (3.5-5.0) g/dL Assessment and Plan Assessment: Pseudoaneurysm of left femoral artery and left groin hematoma. Status post surgery and repair of pseudoaneurysm 08/15/2022 Acute on chronic hypoxic respiratory failure secondary to underlying COPD and bilateral pleural effusions and a iatrogenic pneumothorax and acute pseudomonal pneumonia, Bilateral pleural effusions Acute sepsis secondary to pseudomonas aeruginosa pneumonia History of advanced COPD and previous insertion of zephyr valve Multifocal atrial tachycardia Acute diastolic congestive heart failure, patient has preserved LV function Severe peripheral vessel occlusive disease and previous vascular intervention History of breast cancer History of Sjogren syndrome Dyslipidemia Chronic steroid dependence Plan: The patient was seen and evaluated Labs and medications reviewed Continue the current treatment plan Plan is for subacute rehabilitation I have personally seen and examined the patient, performed the documentation and the assessment and plan as written. Number of minutes spent on the visit: 10.
[2022-08-21 18:18] VITALS: BP 125/75; PULSE 64; TEMP 97.7
== END 2022-08-21 17:47 | DRG 853 ==
LOC: EC 04:28 → 3SCARD 06:11
PROVIDERS: ADMIT Internal Medicine; ATTEND Internal Medicine
PROC: 0W9B3ZZ Drainage of Left Pleural Cavity, Percutaneous Approach (ICD-10-PCS; 2022-08-10)
PROC: 04CL0ZZ Extirpation of Matter from Left Femoral Artery, Open Approach (ICD-10-PCS; 2022-08-15)
PROC: 04PY0DZ Removal of Intraluminal Device from Lower Artery, Open Approach (ICD-10-PCS; 2022-08-15)
PROC: 04CL0ZZ Extirpation of Matter from Left Femoral Artery, Open Approach (ICD-10-PCS; 2022-08-15)
PROC: 04UL0KZ Supplement Left Femoral Artery with Nonautologous Tissue Substitute, Open Approach (ICD-10-PCS; 2022-08-15)
PROC: 30233N1 Transfusion of Nonautologous Red Blood Cells into Peripheral Vein, Percutaneous Approach (ICD-10-PCS; 2022-08-15)
PROC: 041L0ZN Bypass Left Femoral Artery to Posterior Tibial Artery, Open Approach (ICD-10-PCS; principal; 2022-08-15 07:30)
PROC: 02HV33Z Insertion of Infusion Device into Superior Vena Cava, Percutaneous Approach (ICD-10-PCS; 2022-08-18)
DX: A41.52 Sepsis due to Pseudomonas (principal); I50.33 Acute on chronic diastolic (congestive) heart failure; J95.811 Postprocedural pneumothorax; J15.1 Pneumonia due to Pseudomonas; J96.21 Acute and chronic respiratory failure with hypoxia; T81.31XA Disruption of external operation (surgical) wound, not elsewhere classified, initial encounter; E44.0 Moderate protein-calorie malnutrition; T82.518A Breakdown (mechanical) of other cardiac and vascular devices and implants, initial encounter; D68.32 Hemorrhagic disorder due to extrinsic circulating anticoagulants; J91.8 Pleural effusion in other conditions classified elsewhere; I47.1 Supraventricular tachycardia; D62 Acute posthemorrhagic anemia; L97.122 Non-pressure chronic ulcer of left thigh with fat layer exposed; L97.222 Non-pressure chronic ulcer of left calf with fat layer exposed; Z68.1 Body mass index [BMI] 19.9 or less, adult; I50.82 Biventricular heart failure; I83.009 Varicose veins of unspecified lower extremity with ulcer of unspecified site; I70.222 Atherosclerosis of native arteries of extremities with rest pain, left leg; I11.0 Hypertensive heart disease with heart failure; Z99.81 Dependence on supplemental oxygen; Z95.820 Peripheral vascular angioplasty status with implants and grafts; I72.4 Aneurysm of artery of lower extremity; J43.9 Emphysema, unspecified; I48.0 Paroxysmal atrial fibrillation; M81.0 Age-related osteoporosis without current pathological fracture; R91.1 Solitary pulmonary nodule; E78.5 Hyperlipidemia, unspecified; M40.204 Unspecified kyphosis, thoracic region; R31.9 Hematuria, unspecified; T45.515A Adverse effect of anticoagulants, initial encounter; S30.1XXA Contusion of abdominal wall, initial encounter; R03.1 Nonspecific low blood-pressure reading; Y71.1 Therapeutic (nonsurgical) and rehabilitative cardiovascular devices associated with adverse incidents; Z20.822 Contact with and (suspected) exposure to COVID-19; Z92.3 Personal history of irradiation; Z85.3 Personal history of malignant neoplasm of breast; Z80.3 Family history of malignant neoplasm of breast; Z80.1 Family history of malignant neoplasm of trachea, bronchus and lung; Z88.0 Allergy status to penicillin; Z91.041 Radiographic dye allergy status; Z88.5 Allergy status to narcotic agent; Z88.1 Allergy status to other antibiotic agents; Z88.8 Allergy status to other drugs, medicaments and biological substances; Z91.018 Allergy to other foods; Z79.899 Other long term (current) drug therapy; Z79.82 Long term (current) use of aspirin; Z79.01 Long term (current) use of anticoagulants; Z79.891 Long term (current) use of opiate analgesic; Z79.51 Long term (current) use of inhaled steroids; Z79.811 Long term (current) use of aromatase inhibitors; Z28.311 Partially vaccinated for COVID-19; Z87.891 Personal history of nicotine dependence; Z86.2 Personal history of diseases of the blood and blood-forming organs and certain disorders involving the immune mechanism; Z79.52 Long term (current) use of systemic steroids
CPT/HCPCS: 36415; 36573; 71045; 71046; 71250; 76604; 80048; 80053; 82945; 83605; 83615; 83735; 84132; 84145; 84157; 84484; 85025; 85610; 85652; 85730; 86140; 86850; 86900; 86901; 86920; 87040; 87070; 87075; 87077; 87186; 87205; 87635; 87636; 88108; 88305; 89050; 93005; 93306; 93975; 94640; 94760; 96374; 96375; 99285

== ENCOUNTER 2022-09-02 15:28 | Inpatient (IN) | payer MEDICARE, BC ==
[2022-09-02] MEDS ORDERED: IPRATROPIUM-ALBUTEROL 3 ML NEB INHALATION STA (16:20)
[2022-09-02] MEDS ORDERED: SODIUM CHLORIDE 0.9% 500 ML 500 ML IV STA (16:20)
--- NOTE | 2022-09-02 16:40 | ED ---
SOB HPI - General Chief Complaint: Shortness of Breath Stated Complaint: GILLES Time Seen by Provider: 09/02/22 15:37 Source: patient, EMS, RN notes reviewed, old records reviewed, Caregiver Mode of arrival: EMS Limitations: no limitations - History of Present Illness Initial Comments: This is a 67-year-old female who does not feel well. Patient sent in from [facility] for severe shortness of breath weakness not feeling well worsening conditions with evaluation x-ray x-ray yesterday reevaluation today symptoms worsening patient condition worsening and she does have similar of the above. Patient is at [facility] getting treatment for pneumonia although symptoms appear again to be worsening despite treatment staff concern for oxygenation well as her breathing work of breathing MD Complaint: shortness of breath, cough, anxiety -: unknown Severity: moderate Severity scale (1-10): 4 Consistency: intermittent Improves With: nothing Worsens With: exertion Known History Of: COPD, congestive heart failure Context: recent URI, recent illness Associated Symptoms: denies other symptoms - Related Data Home Medications Medication Instructions Recorded Confirmed Hydroxychloroquine Sulfate 200 mg PO BID 03/29/15 08/06/22 [Plaquenil] Fluticasone Propion/Salmeterol 1 puff INHALATION RT-BID 05/31/16 08/06/22 [Advair 500-50 Diskus] Levalbuterol Hfa Inhaler [Xopenex 1 puff INHALATION RT-Q6H PRN 04/07/19 08/06/22 Hfa Inhaler] Calcium Carbonate [Calcium] 1,200 mg PO DAILY 04/29/19 08/06/22 Letrozole [Femara] 2.5 mg PO DAILY 10/23/19 08/06/22 Albuterol Nebulized [Ventolin 2.5 mg INHALATION RT-QID PRN 11/04/20 08/06/22 Nebulized] Docusate [Colace] 100 mg PO DAILY 01/09/21 08/06/22 buPROPion HCL [Wellbutrin SR] 100 mg PO DAILY 01/09/21 08/06/22 Cholecalciferol [Vitamin D3 (25 50 mcg PO DAILY 08/03/21 08/06/22 Mcg = 1000 Iu)] Tiotropium 2.5 Mcg/Puff [Spiriva 2 puff INHALATION RT-DAILY 08/03/21 08/06/22 Respimat 2.5 Mcg] Previous Rx's Medication Instructions Recorded Atorvastatin [Lipitor] 80 mg PO HS #90 tab 07/29/21 Rivaroxaban [Xarelto] 2.5 mg PO BID #60 tab 07/25/22 Cefepime [Maxipime] 2 gm IVPB Q8H #63 each 08/18/22 ALPRAZolam [Xanax] 0.25 mg PO BID PRN #4 tab 08/21/22 Aspirin 81 mg PO DAILY tab 08/21/22 Collagenase [Santyl Ointment] 1 applic TOPICAL DAILY each 08/21/22 Diltiazem Oral [Cardizem*] 30 mg PO TID tab 08/21/22 Furosemide [Lasix] 20 mg PO BID@0900,1600 tab 08/21/22 Gabapentin [Neurontin] 300 mg PO TID #6 cap 08/21/22 HYDROcodone/APAP 5-325MG [[place] 1 each PO Q6HR PRN #6 tab 08/21/22 5-325] Metoprolol Tartrate [Lopressor] 25 mg PO BID tab 08/21/22 Pantoprazole [Protonix] 40 mg PO AC-BID tab 08/21/22 Promethazine [Phenergan] 12.5 mg PO Q6HR PRN tab 08/21/22 guaiFENesin-DM 600/30MG [Mucinex 2 each PO Q12HR tab 08/21/22 Dm] predniSONE 10 mg PO DIRECTED #30 tab 08/21/22 Allergies Allergy/AdvReac Type Severity Reaction Status Date / Time banana Allergy Abdominal Verified 08/15/22 12:51 Pain budesonide [From Pulmicort] Allergy Dyspnea Verified 08/15/22 12:51 Iodinated Contrast Media Allergy Anaphylaxis Verified 08/15/22 12:51 [Iodinated Contrast Media - IV Dye] penicillin G Allergy Rash/Hives Verified 08/15/22 12:51 codeine AdvReac Nausea & Verified 08/15/22 12:51 Vomiting levofloxacin AdvReac joint pain Verified 08/15/22 12:51 verapamil AdvReac HEADACHE Verified 08/15/22 12:51 Review of Systems ROS Statement: Those systems with pertinent positive or pertinent negative responses have been documented in the HPI. ROS Other: All systems not noted in ROS Statement are negative. Past Medical History Past Medical History: Atrial Fibrillation, Cancer, COPD, GERD/Reflux, Hyperlipidemia, Pneumonia, Respiratory Disorder, Vascular Disorder Additional Past Medical History / Comment(s): wound left leg-following wound care w/ Dr Osullivan, Libby upper lobe nodule being monitored, home oxygen at 2L/CONTINOUS, PVD, osteoporosis, constipation. LEFT BREAST CANCER received radiation 2019 History of Any Multi-Drug Resistant Organisms: None Reported Past Surgical History: Breast Surgery, Cholecystectomy, Hysterectomy, Orthopedic Surgery Additional Past Surgical History / Comment(s): 07/29/21 L iliac percutaneous balloon angioplasty with stent/atherectomy/PTBA L femoral artery/BOARD CERTIFIED ARTS THERAPIST R femoral artery/R iliac stent, abdominal aortagram, bronchoscopies with biopsy, bilateral wrist carpal tunnel, TMJ surgery, left neck cyst removed, colonoscopy, left breast lumpectomy. Past Anesthesia/Blood Transfusion Reactions: Previous Problems w/ Anesthesia, Blood Transfusion Reaction Additional Past Anesthesia/Blood Transfusion Reaction / Comment(s): SLOW TO WAKE UP. had transfusion in Jan 2022-had reaction dyspnea,tachypnea,nausea Past Psychological History: Anxiety Smoking Status: Never smoker - Past Family History Father Family Medical History: Cancer Additional Family Medical History / Comment(s): LUNG CANCER. Mother Family Medical History: Cancer Additional Family Medical History / Comment(s): BREAST CANCER. General Exam Limitations: no limitations General appearance: alert, in no apparent distress, anxious Head exam: Present: atraumatic, normocephalic, normal inspection Eye exam: Present: normal appearance, PERRL, EOMI. Absent: scleral icterus, conjunctival injection, periorbital swelling ENT exam: Present: normal exam, mucous membranes moist Neck exam: Present: normal inspection. Absent: tenderness, meningismus, lymp hadenopathy Respiratory exam: Present: normal lung sounds bilaterally, respiratory distress, wheezes, rales, decreased breath sounds, prolonged expiratory. Absent: rhonchi, stridor Cardiovascular Exam: Present: regular rate, normal rhythm, normal heart sounds. Absent: systolic murmur, diastolic murmur, rubs, gallop, clicks GI/Abdominal exam: Present: soft, normal bowel sounds. Absent: distended, tenderness, guarding, rebound, rigid Extremities exam: Present: normal inspection, full ROM, normal capillary refill. Absent: tenderness, pedal edema, joint swelling, calf tenderness Back exam: Present: normal inspection Neurological exam: Present: alert, oriented X3, CN II-XII intact Psychiatric exam: Present: normal affect, normal mood Skin exam: Present: warm, dry, intact, normal color. Absent: rash Course Vital Signs 09/02/22 09/02/22 09/02/22 15:35 15:38 16:10 Temperature 98.2 F Pulse Rate 84 85 86 Respiratory 22 24 20 Rate Blood Pressure 104/67 131/103 O2 Sat by Pulse 98 98 95 Oximetry 09/02/22 09/02/22 16:46 17:04 Temperature Pulse Rate 86 88 Respiratory Rate Blood Pressure O2 Sat by Pulse Oximetry - Reevaluation(s) Reevaluation #1: 09/02/22 16:39 Medical record is reviewed Reevaluation #2: 09/02/22 16:39 Patient symptoms are improving here in the ER Reevaluation #3: 09/02/22 17:43 Patient has no improvement here in the ER Reevaluation #4: 09/02/22 16:39 Was pt. sent in by a medical professional or institution? @ -no patient does present by EMS Did you speak to anyone other than the patient for history? @ -EMS and patient caregivers Did you review nursing and triage notes? @ -agree Were old charts reviewed? @ -prior admissions and ER evaluaions are reviewed Differential Diagnosis? @ -sob EKG interpreted by me (3pts min.)? @ -no X-rays interpreted by me (1pt min.)? @ -no CT interpreted by me (1pt min.)? @ -no U/S interpreted by me (1pt. min.)? @ -no What testing was considered but not performed? (CT, X-rays, U/S, labs)? Why? @ -no What meds were considered but not given? Why? @ -no patient with no current complaints Did you discuss the management of the patient with other professionals? @ -no Did you reconcile home meds? @ -no Was smoking cessation discussed for >3mins.? @ -no Was critical care preformed (if so, how long)? @ -no Were there social determinants of health that impacted care today? How? (Homelessness, low income, unemployed, alcoholism, drug addiction, transportation, low edu. Level, literacy, decrease access to med. care, penitentiary, rehab)? @ -no Was there de-escalation of care discussed even if they declined? (Discuss DNR or withdrawal of care, Hospice)? @ -no What co-morbidities impacted this encounter? (DM, HTN, Smoking, COPD, CAD, Cancer, CVA, Hep., AIDS, mental health diagnosis, sleep apnea, morbid obesity)? @ -copd Was patient admitted / discharged? @ -admit Undiagnosed new problem with uncertain prognosis? @ -treatment for pna at [facility] and worsening conditions Drug Therapy requiring intensive monitoring for toxicity (Heparin, Nitro, Insulin, Cardizem)? @ -no Were any procedures done? @ -no Diagnosis/symptom? @ -pna,wek Acute, or Chronic, or Acute on Chronic? @ -acute Uncomplicated (without systemic symptoms) or Complicated (systemic symptoms)? @ -uncompicated Side effects of treatment? @ -none Exacerbation, Progression, or Severe Exacerbation] @ -no Poses a threat to life or bodily function? @ -yes 09/02/22 17:43 Reevaluation #5: 09/02/22 16:39 Differential Dyspnea: Coronary syndrome, arrhythmia, tamponade, asthma, COPD, pulmonary embolism, pneumonia, pneumothorax, pulmonary effusion, anaphylaxis, diabetic ketoacidosis, flailed chest, pulmonary contusion, diaphragmatic rupture, anemia, neuromuscular, this is not meant to be an all-inclusive list. - Consultations Consultation #1: Spoke with [facility] who agree to admit the patient Medical Decision Making - Medical Decision Making 67 female to the emergency department with no significant clinical change in the ER. Patient does have worsening pneumonia despite outpatient treatment will admit for reevaluation and persistent care - Lab Data Result diagrams: 09/02/22 16:35 Lab Results 09/02/22 09/02/22 09/02/22 Range/Units 16:35 16:35 16:35 WBC 15.1 H (3.8-10.6) k/uL RBC 3.15 L (3.80-5.40) m/uL Hgb 9.6 L (11.4-16.0) gm/dL Hct 30.7 L (34.0-46.0) % MCV 97.4 (80.0-100.0) fL MCH 30.4 (25.0-35.0) pg MCHC 31.2 (31.0-37.0) g/dL RDW 17.0 H (11.5-15.5) % Plt Count 138 L (150-450) k/uL MPV 7.7 Neutrophils % 94 % Lymphocytes % 2 % Monocytes % 2 % Eosinophils % 0 % Basophils % 0 % Neutrophils # 14.2 H (1.3-7.7) k/uL Lymphocytes # 0.3 L (1.0-4.8) k/uL Monocytes # 0.3 (0-1.0) k/uL Eosinophils # 0.0 (0-0.7) k/uL Basophils # 0.1 (0-0.2) k/uL Hypochromasia Moderate Poikilocytosis Moderate Anisocytosis Slight Macrocytosis Slight PT 11.8 (9.0-12.0) sec INR 1.1 (<1.2) APTT 24.8 (22.0-30.0) sec Plasma Lactic Acid Seth 1.0 (0.7-2.0) mmol/L - EKG Data -: EKG Interpreted by Me (EKG is sinus 76 ND 96 QRS 78 QTc 429) - Radiology Data Radiology results: report reviewed (Chest x-ray shows worsening of pneumonia even from yesterday), image reviewed Disposition Clinical Impression: Pneumonia, COPD exacerbation, COPD (chronic obstructive pulmonary disease), Dyspnea, Failure of outpatient treatment Disposition: ADMITTED IP TO [facility] Condition: Fair Is patient prescribed a controlled substance at d/c from ED?: No Referrals: Jaxon Osullivan DO [Primary Care Provider] - 1-2 days Time of Disposition: 17:45
[2022-09-02 16:56] LABS: Anisocytosis Slight; Basophils # (A) 0.1 k/uL (0-0.2); Basophils % (A) 0 %; Eosinophils % (A) 0 %; HCT 30.7 % (34.0-46.0); HGB 9.6 gm/dL (11.4-16.0); Hypochromasia Moderate; Lymphocytes # (A) 0.3 k/uL (1.0-4.8); Lymphocytes % (A) 2 %; MCH 30.4 pg (25.0-35.0); MCHC 31.2 g/dL (31.0-37.0); MCV 97.4 fL (80.0-100.0); Macrocytosis Slight; Mean Platelet Volume 7.7; Monocytes # (A) 0.3 k/uL (0-1.0); Monocytes % (A) 2 %; Neutrophils # (A) 14.2 k/uL (1.3-7.7); Neutrophils % (A) 94 %; Platelet Count 138 k/uL (150-450); Poikilocytosis Moderate; RBC 3.15 m/uL (3.80-5.40); WBC 15.1 k/uL (3.8-10.6)
[2022-09-02 16:57] LABS: INR 1.1 (<1.2); Partial Thromboplastin Time 24.8 sec (22.0-30.0); Prothrombin Time 11.8 sec (9.0-12.0)
--- NOTE | 2022-09-02 17:02 | XR ---
EXAMINATION TYPE: XR chest 1V portable DATE OF EXAM: 09/02/2022 COMPARISON: 08/17/2022 HISTORY: Shortness of breath TECHNIQUE: Single frontal view of the chest is obtained. FINDINGS: There are emphysematous changes. There is a dense opacity obscuring the hemidiaphragm on the left consistent with a airspace infiltrat es. It appears somewhat more dense than on the prior study. There is also increasing interstitial and partial airspace opacity in the right lung base as well. Findings are consistent with bibasilar pneu monia. There is no pneumothorax. Cannot exclude tiny effusions. The pulmonary vasculature is not congested. The osseous structures are intact. IMPRESSION: 1 Findings consistent with worsening bibasilar pneumonia. 2. Emphysematous changes.
[2022-09-02 17:04] LABS: ALT 26 U/L (4-34); AST 24 U/L (14-36); African American GFR (CKD) >90 (>60 ml/min/1.73 sqM); Albumin 2.8 g/dL (3.5-5.0); Alkaline Phosphatase 55 U/L (38-126); Blood Urea Nitrogen 27 mg/dL (7-17); Calcium 9.8 mg/dL (8.4-10.2); Chloride 95 mmol/L (98-107); Glucose 116 mg/dL (74-99); Non-African American GFR(CKD) >90 (>60 ml/min/1.73 sqM); Sodium 140 mmol/L (137-145); Total Bilirubin 0.7 mg/dL (0.2-1.3); Total Protein 4.8 g/dL (6.3-8.2)
[2022-09-02 17:10] LABS: Anion Gap 4 mmol/L
[2022-09-02] MEDS ORDERED: PNEUMONIA PROTOCOL UTILIZED 1 EACH MISC PO PRN (17:37)
[2022-09-02] MEDS ORDERED: AZITHROMYCIN 500 MG in SODIUM CHLORIDE 0.9% 250 ML IVPB STA (17:40)
[2022-09-02] MEDS ORDERED: SODIUM CHLORIDE 0.9% 1,000 ML IV SCH (17:45)
[2022-09-02 17:50] LABS: Carbon Dioxide 41 mmol/L (22-30)
[2022-09-02] MEDS ORDERED: CEFEPIME 2 GM in SODIUM CHLORIDE 0.9% 100 ML IVPB STA (17:52)
[2022-09-02] MEDS ORDERED: ALPRAZolam 0.25 MG TAB PO PRN (19:23)
[2022-09-02] MEDS ORDERED: ALBUTEROL NEBULIZED 2.5 MG/3 ML INHALATION PRN (19:23)
[2022-09-02] MEDS: IPRATROPIUM-ALBUTEROL 3 ML NEB INHALATION PRN (20:12)
[2022-09-02] MEDS ORDERED: FUROSEMIDE 10 MG/ML 4 ML VIAL IV STA (21:06)
[2022-09-02] MEDS ORDERED: RIVAROXABAN 2.5 MG TABLET PO STA (22:09)
[2022-09-02] MEDS: GABAPENTIN 400 MG CAP PO SCH (22:16)
[2022-09-02] MEDS: DILTIAZEM ORAL 30 MG TAB PO SCH (22:16)
[2022-09-02] MEDS: guaiFENesin-DM 600/30MG 1 EACH TAB.ER.12H PO SCH (22:16)
[2022-09-02] MEDS: ATORVASTATIN 80 MG TAB PO SCH (22:16)
[2022-09-02] MEDS: CEFEPIME 2 GM in SODIUM CHLORIDE 0.9% 100 ML IVPB SCH (23:38)
[2022-09-03] MEDS: DILTIAZEM ORAL 30 MG TAB PO SCH ×3 (05:18→22:11)
[2022-09-03] MEDS: IPRATROPIUM-ALBUTEROL 3 ML NEB INHALATION PRN ×4 (07:48→20:20)
[2022-09-03] MEDS: ADVAIR INHALATION SCH ×2 (07:50→15:17)
--- NOTE | 2022-09-03 08:01 | XR ---
EXAMINATION TYPE: XR chest 2V DATE OF EXAM: 09/03/2022 CLINICAL HISTORY: Pneumonia TECHNIQUE: Frontal and lateral views of the chest are obtained. COMPARISON: Chest x-ray from yesterday FINDINGS: Stable right-sided PICC line. Background chronic emphysematous change with left greater than right lower lung increased opacities. Cardiac silhouette size stable and mildly enlarged with atherosclerotic change involving the aortic k nob. Osseous structures are intact. IMPRESSION: Chronic emphysematous change and mild cardiomegaly with left greater than right bibasilar acute infiltrate and/or atelectasis redemonstrated. Left basilar findings stable. Right basilar find ings slightly improved from one day earlier.
[2022-09-03] MEDS: CEFEPIME 2 GM in SODIUM CHLORIDE 0.9% 100 ML IVPB SCH ×3 (08:13→23:38)
[2022-09-03] MEDS: guaiFENesin-DM 600/30MG 1 EACH TAB.ER.12H PO SCH ×2 (08:19→22:10)
[2022-09-03] MEDS: GABAPENTIN 400 MG CAP PO SCH ×3 (08:19→22:10)
[2022-09-03] MEDS: RIVAROXABAN 2.5 MG TABLET PO SCH ×2 (08:19→17:32)
[2022-09-03] MEDS: HYDROXYCHLOROQUINE SULFATE 200 MG TAB PO SCH ×2 (08:19→17:33)
[2022-09-03] MEDS: METOPROLOL TARTRATE 25 MG TAB PO SCH ×2 (08:20→17:35)
[2022-09-03] MEDS: PANTOPRAZOLE 40 MG TABLET PO SCH ×2 (08:20→17:34)
[2022-09-03] MEDS: HYDROcodone/APAP 10-325MG 1 EACH TAB PO PRN (08:49)
[2022-09-03] MEDS: ASPIRIN 81 MG PO SCH (12:22)
[2022-09-03] MEDS: CALCIUM CARBONATE 500 MG CHEWABLE PO SCH (12:23)
[2022-09-03] MEDS ORDERED: MAGNESIUM HYDROXIDE 2,400 MG/10 ML CUP PO PRN (13:19)
[2022-09-03] MEDS ORDERED: NA PHOS,M-B/NA PHOS,DI-BA 133 ML ENEMA RECTAL PRN (13:19)
[2022-09-03] MEDS ORDERED: NON FORMULARY DRUG (Levalbuterol Hfa Inhaler 200 PUFF/9 GM Inhaler) INHALATION PRN (13:19)
[2022-09-03] MEDS ORDERED: CEFEPIME 2 GM VIAL IVPB SCH (14:00)
[2022-09-03] MEDS: AZITHROMYCIN 500 MG in SODIUM CHLORIDE 0.9% 250 ML IVPB SCH (15:12)
--- NOTE | 2022-09-03 17:21 | P.HPIM ---
History of Present Illness H&P Date: 09/03/22 Chief Complaint: Shortness of breath 67-year-old female patient who is a resident of an extended care facility with past medical history of atrial fibrillation, COPD, hyperlipidemia [facility] with complaints of shortness of breath; patient is a poor historian so most of the history is obtained from chart Patient sent in from staffing for severe shortness of breath weakness not feeling well worsening conditions with evaluation x-ray x-ray yesterday reevaluation today symptoms worsening patient condition worsening and she does have similar of the above. Patient is at [facility] getting treatment for pneumonia although symptoms appear again to be worsening despite treatment staff concern for oxygenation well as her breathing work of breathing Blood work completed in ED reveals a WBC of 15.1, hemoglobin of 5.6 and platelet count of 138, sodium of 140, potassium 4.0, CO2 of 41, BUN/creatinine of 27/0.54, troponin of 0.056; COVID-19 is negative Chest x-ray reveals left greater than right bibasilar acute infiltrate Review of Systems REVIEW OF SYSTEMS: CONSTITUTIONAL: No fever, no malaise, no fatigue. HEENT: No recent visual problems or hearing problems. Denied any sore throat. CARDIOVASCULAR: No chest pain, orthopnea, PND, no palpitations, no syncope. PULMONARY: No shortness of breath, no cough, no hemoptysis. GASTROINTESTINAL: No diarrhea, no nausea, no vomiting, no abdominal pain. NEUROLOGICAL: No headaches, no weakness, no numbness. HEMATOLOGICAL: Denies any bleeding or petechiae. GENITOURINARY: Denies any burning micturition, frequency, or urgency. MUSCULOSKELETAL/RHEUMATOLOGICAL: Denies any joint pain, swelling, or any muscle pain. ENDOCRINE: Denies any polyuria or polydipsia. The rest of the 14-point review of systems is negative. Past Medical History Past Medical History: Atrial Fibrillation, Cancer, COPD, GERD/Reflux, Hyperlipidemia, Pneumonia, Respiratory Disorder, Vascular Disorder Additional Past Medical History / Comment(s): wound left leg-following wound care w/ Libby Pacheco upper lobe nodule being monitored, home oxygen at 2L/CONTINOUS, PVD, osteoporosis, constipation. LEFT BREAST CANCER received radiation 2020 History of Any Multi-Drug Resistant Organisms: None Reported Past Surgical History: Breast Surgery, Cholecystectomy, Hysterectomy, Orthopedic Surgery Additional Past Surgical History / Comment(s): 2/25/22 L iliac percutaneous balloon angioplasty with stent/atherectomy/PTBA L femoral artery/CARDIOLOGY TECH R femoral artery/R iliac stent, abdominal aortagram, bronchoscopies with biopsy, bilateral wrist carpal tunnel, TMJ surgery, left neck cyst removed, colonoscopy, left breast lumpectomy. Past Anesthesia/Blood Transfusion Reactions: Previous Problems w/ Anesthesia, Blood Transfusion Reaction Additional Past Anesthesia/Blood Transfusion Reaction / Comment(s): SLOW TO WAKE UP. had transfusion in Jan 2022-had reaction dyspnea,tachypnea,nausea Past Psychological History: Anxiety Additional Psychological History / Comment(s): Pt resides with her spouse and mother in law, currently has home care nursing. She has home O2 and a nebulizer. She is independent. Smoking Status: Former smoker Past Alcohol Use History: None Reported Additional Past Alcohol Use History / Comment(s): QUIT SMOKING 2015, smoked since age 15,SMOKED 1 PPD. Past Drug Use History: None Reported - Past Family History Father Family Medical History: Cancer Additional Family Medical History / Comment(s): LUNG CANCER. Mother Family Medical History: Cancer Additional Family Medical History / Comment(s): BREAST CANCER. Medications and Allergies Home Medications Medication Instructions Recorded Confirmed Type Hydroxychloroquine Sulfate 200 mg PO BID@0800,1700 03/29/15 09/02/22 History [Plaquenil] Fluticasone Propion/Salmeterol 1 puff INHALATION RT-BID@0800,1700 05/31/16 09/02/22 History [Advair 500-50 Diskus] Levalbuterol Hfa Inhaler [Xopenex 1 puff INHALATION RT-Q6H PRN 04/07/19 09/02/22 History Hfa Inhaler] Calcium Carbonate [Calcium] 1,200 mg PO DAILY@1200 04/29/19 09/02/22 History Letrozole [Femara] 2.5 mg PO DAILY@0800 10/23/19 09/02/22 History Albuterol Nebulized [Ventolin 2.5 mg INHALATION 11/04/20 09/02/22 History Nebulized] RT-QID@08,12,17,21 buPROPion HCL [Wellbutrin SR] 100 mg PO DAILY@0800 01/09/21 09/02/22 History Cholecalciferol [Vitamin D3 (25 50 mcg PO DAILY@1700 08/03/21 09/02/22 History Mcg = 1000 Iu)] Tiotropium 2.5 Mcg/Puff [Spiriva 2 puff INHALATION RT-DAILY@0800 08/03/21 09/02/22 History Respimat 2.5 Mcg] ALPRAZolam [Xanax] 0.25 mg PO BID PRN #4 tab 08/21/22 09/02/22 Rx Collagenase [Santyl Ointment] 1 applic TOPICAL DAILY each 08/21/22 09/02/22 Rx Promethazine [Phenergan] 12.5 mg PO Q6HR PRN tab 08/21/22 09/02/22 Rx Albuterol Nebulized [Ventolin 2.5 mg INHALATION RT-Q4H PRN 09/02/22 09/02/22 History Nebulized] Aspirin 81 mg PO DAILY@1200 09/02/22 09/02/22 History Atorvastatin [Lipitor] 80 mg PO HS@2100 09/02/22 09/02/22 History Cefepime [Maxipime] 2 gm IVPB TID@08,14,09/02/22 09/02/22 History Diltiazem Oral [Cardizem*] 30 mg PO TID@06,14,09/02/22 09/02/22 History Ensure Enlive 120 - 237 ml PO TID@10,14,19 09/02/22 09/02/22 History Furosemide [Lasix] 20 mg PO BID@0800,1700 09/02/22 09/02/22 History Gabapentin [Neurontin] 400 mg PO TID@0800,1400,2200 09/02/22 09/02/22 History HYDROcodone/APAP 10-325MG [[place] 1 tab PO Q4H PRN 09/02/22 09/02/22 History 10-325] Magnesium Hydroxide [Milk of 7,200 ml PO Q48H PRN 09/02/22 09/02/22 History Magnesia Concentrate] Metoprolol Tartrate [Lopressor] 25 mg PO BID@0800,1700 09/02/22 09/02/22 History Na Phos,M-B/Na Phos,Di-Ba [Fleet 133 ml RECTAL DAILY PRN 09/02/22 09/02/22 History Adult] Pantoprazole [Protonix] 40 mg PO BID@0800,1700 09/02/22 09/02/22 History Potassium Chloride ER [K-Dur 20] 20 meq PO DAILY@0800 09/02/22 09/02/22 History Rivaroxaban [Xarelto] 2.5 mg PO BID@0800,1700 09/02/22 09/02/22 History Sennosides/Docusate Sodium [Senna 2 cap PO HS@209909/02/22 09/02/22 History Plus 8.6-50 mg Softgel] bisacodyL [Dulcolax] 10 mg RECTAL DAILY PRN 09/02/22 09/02/22 History guaiFENesin-DM 600/30MG [Mucinex 2 tab PO BID@0800,2100 09/02/22 09/02/22 History Dm] Allergies Allergy/AdvReac Type Severity Reaction Status Date / Time banana Allergy Abdominal Verified 09/02/22 18:37 Pain budesonide [From Pulmicort] Allergy Dyspnea Verified 09/02/22 18:37 Iodinated Contrast Media Allergy Anaphylaxis Verified 09/02/22 18:37 [Iodinated Contrast Media - IV Dye] penicillin G Allergy Rash/Hives Verified 09/02/22 18:37 codeine AdvReac Nausea & Verified 09/02/22 18:37 Vomiting levofloxacin AdvReac joint pain Verified 09/02/22 18:37 verapamil AdvReac HEADACHE Verified 09/02/22 18:37 Physical Exam Vitals: Vital Signs Temp Pulse Pulse Pulse Resp BP BP 09/03/22 11:31 98.1 F 64 16 107/55 09/03/22 11:16 96 09/03/22 10:58 92 09/03/22 09:36 98.3 F 65 16 101/62 09/03/22 08:00 96 09/03/22 07:51 97 09/03/22 02:18 97.1 F L 76 18 133/69 09/02/22 20:36 98.1 F 63 18 132/68 09/02/22 20:26 92 18 09/02/22 20:12 94 18 09/02/22 19:20 85 18 113/89 09/02/22 18:30 87 20 100/78 09/02/22 17:04 88 09/02/22 17:00 84 20 111/76 09/02/22 16:46 86 09/02/22 16:10 86 20 131/103 09/02/22 15:38 85 24 09/02/22 15:35 98.2 F 84 22 104/67 Pulse Ox 09/03/22 11:31 98 09/03/22 11:16 09/03/22 10:58 09/03/22 09:36 94 L 09/03/22 08:00 09/03/22 07:51 09/03/22 02:18 97 09/02/22 20:36 95 09/02/22 20:26 09/02/22 20:12 96 09/02/22 19:20 98 09/02/22 18:30 98 09/02/22 17:04 09/02/22 17:00 98 09/02/22 16:46 09/02/22 16:10 95 09/02/22 15:38 98 09/02/22 15:35 98 Intake and Output 09/02/22 09/03/22 09/03/22 22:59 06:59 14:59 Intake Total 250 Balance 250 Intake: Oral 250 Other: Voiding Method Indwelling Catheter Indwelling Catheter # Voids 1 Weight 53.5 kg General appearance: alert, in no apparent distress, anxious Head exam: Present: atraumatic, normocephalic, normal inspection Eye exam: Present: normal appearance, PERRL, EOMI. Absent: scleral icterus, conjunctival injection, periorbital swelling ENT exam: Present: normal exam, mucous membranes moist Neck exam: Present: normal inspection. Absent: tenderness, meningismus, lymphadenopathy Respiratory exam: Present: normal lung sounds bilaterally, respiratory distress, wheezes, rales, decreased breath sounds, prolonged expiratory. Absent: rhonchi, stridor Cardiovascular Exam: Present: regular rate, normal rhythm, normal heart sounds. Absent: systolic murmur, diastolic murmur, rubs, gallop, clicks GI/Abdominal exam: Present: soft, normal bowel sounds. Absent: distended, tenderness, guarding, rebound, rigid Extremities exam: Present: normal inspection, full ROM, normal capillary refill. Absent: tenderness, pedal edema, joint swelling, calf tenderness Back exam: Present: normal inspection Neurological exam: Present: alert, oriented X3, CN II-XII intact Psychiatric exam: Present: normal affect, normal mood Skin exam: Present: warm, dry, intact, normal color. Absent: rash Results CBC & Chem 7: 09/02/22 16:35 09/02/22 16:35 Labs: Abnormal Lab Results - Last 24 Hours (Table) 09/02/22 09/02/22 09/02/22 Range/Units 16:35 16:35 16:35 WBC 15.1 H (3.8-10.6) k/uL RBC 3.15 L (3.80-5.40) m/uL Hgb 9.6 L (11.4-16.0) gm/dL Hct 30.7 L (34.0-46.0) % RDW 17.0 H (11.5-15.5) % Plt Count 138 L (150-450) k/uL Neutrophils # 14.2 H (1.3-7.7) k/uL Lymphocytes # 0.3 L (1.0-4.8) k/uL Chloride 95 L (98-107) mmol/L Carbon Dioxide 41 H* (22-30) mmol/L BUN 27 H (7-17) mg/dL Glucose 116 H (74-99) mg/dL Troponin I 0.056 H* (0.000-0.034) ng/mL Total Protein 4.8 L (6.3-8.2) g/dL Albumin 2.8 L (3.5-5.0) g/dL Thrombosis Risk Factor Assmnt - Choose All That Apply Any of the Below Risk Factors Present?: Yes Each Factor Represents 1 point: Abnormal pulmonary function (COPD), Serious lung disease incl. pneumonia (< 1month) Other Risk Factors: Yes Each Risk Factor Represents 2 Points: Age 61-74 years Other congenital or acquired thrombophilia - If yes, enter type in comment: No Thrombosis Risk Factor Assessment Total Risk Factor Score: 4 Thrombosis Risk Factor Assessment Level: Moderate Risk Assessment and Plan Assessment: 1. Bibasilar pneumonia failing outpatient treatment - Patient has been placed on IV cefepime 2 g IV every 8 hours along with azithromycin 500 mg IV daily - We will continue with albuterol nebulizer treatments 4 times a day and when necessary - Continue with symptomatically treatment of pneumonia - Monitor CBC, CRP and pro-calcitonin - Consult pulmonary for further recommendations 2. Elevated troponin; demand ischemia related to bibasilar pneumonia and hypoxia - We will monitor EKG and trend troponin 3. Mild renal injury/dehydration; slow IV fluid hydration with normal saline at rate of 75 mL an hour 4. Elevated BNP; chest x-ray is negative for CHF; we will monitor strict MIKHAIL's, daily weights, low salt and fluid restricted diet; We will continue home dose of Lasix 20 mg by mouth daily 5. Hypertension; patient takes Cardizem 30 mg 3 times a day and metoprolol 25 mg twice a day which is placed on hold due to softer blood pressures 6. Hyperlipidemia; Lipitor 80 mg by mouth daily at bedtime 7. COPD; not in exacerbation; continue with home inhaler therapy
[2022-09-03] MEDS: FUROSEMIDE 20 MG TAB PO SCH (17:32)
[2022-09-03] MEDS: CHOLECALCIFEROL 25 MCG (1000 IU) TABLET PO SCH (17:33)
[2022-09-03] MEDS: ATORVASTATIN 80 MG TAB PO SCH (22:10)
[2022-09-03] MEDS: SENNOSIDES-DOCUSATE SODIUM 1 EACH TAB PO SCH (22:10)
[2022-09-04] MEDS ORDERED: IPRATROPIUM 0.5 MG/2.5 ML NEBU INHALATION PRN (01:14)
--- NOTE | 2022-09-04 01:17 | P.CNPUL ---
History of Present Illness Consult date: 09/04/22 Requesting physician: Celsa Saha Reason for consult: pneumonia Chief complaint: Shortness of breath History of present illness: I'm seeing this patient today 09/03/2022 in new consultation on the general medical floor for pneumonia. This is a 67-year-old female patient with an extenisve past medical history of advanced COPD, previous [place] valve insertion, maintained on a combination of Advair, albuterol, and Spiriva outpatient basis, she is oxygen dependent at home on 2 L/m nasal cannula at baseline, iatrogenic pneumothorax, pneumonia, sjogrens, atrial fibrillation anticoagulated Xarelto, and peripheral vascular disease. Patient has had recent left femoral endarterectomy and left femoral to tibial bypass graft complicated by pseudoaneurysm post repair on 08/15/2022. During the stay, the patient ended up developing pneumonia sepsis and spent some time in the intensive care unit. Identified organism at that time was Pseudomonas aeruginosa. Patient did have a prolonged stay, and required rehab at [facility] afterwards. While at [facility], patient was experiencing severe shortness of breath, congested nonproductive cough, fevers and chills. Denies chest pain, hemoptysis. Patient failed outpatient treatment for pneumonia, and was transferred to [facility] yesterday evening. Patient is currently resting in bed, on 3 L nasal cannula, in no acute distress. Chest x-ray on arrival showed left greater than right bibasilar acute infiltrates, some stable cardiomegaly, and chronic emphysematous changes. CBC on arrival shows leukocytosis with a WBC count of 15.1, hemoglobin 9.6, hematocrit 30.7, platelets 138,000. BMP on arrival shows sodium 140, potassium 4, chloride 95, serum CO2 chronically elevated at 41, BP 127, creatinine 0.54, glucose 116. Troponin was mildly elevated at 0.056. No obvious ischemic changes on ECG. ProBNP 2340. Patient is receiving home dose of Lasix 20 mg twice a day. Patient was negative for COVID-19 on arrival. A pro calcitonin level is pending. Patient is covered with a combination of azithromycin and cefepime. Afebrile for now. Patient does have a chronic left leg wound, in which she normally follows up with wound care. Vital signs are stable. Review of Systems REVIEW OF SYSTEMS: CONSTITUTIONAL: Denies any recent significant weight loss or weight gain. EYES: Denies change in vision. EARS, NOSE, MOUTH, THROAT: Denies headaches, denies sore throat. CARDIOVASCULAR: Denies chest pain, palpitations or syncopal episodes. RESPIRATORY: See HPI GASTROINTESTINAL: Denies change in appetite, abdominal pain, nausea and vomiting, or diarrhea GENITOURINARY: Denies hematuria, denies infections. MUSKULOSKELETAL: Denies pain, denies swelling. INTEGUMENTARY: Denies rash, denies eczema. There is a chronic left leg wound of the anterior lower extremity, and an open wound at the previous vascular access site. NEUROLOGICAL: Denies recent memory loss, no recent seizure activity. PSYCHIATRIC: Denies anxiety, denies depression. HEMATOLOGIC/LYMPHATIC: Denies anemia, denies enlarged lymph node Past Medical History Past Medical History: Atrial Fibrillation, Cancer, COPD, GERD/Reflux, Hyperlipidemia, Pneumonia, Respiratory Disorder, Vascular Disorder Additional Past Medical History / Comment(s): wound left leg-following wound care w/ Dr Osullivan, L upper lobe nodule being monitored, home oxygen at 2L/CONTINOUS, PVD, osteoporosis, constipation. LEFT BREAST CANCER received radiation 2019 History of Any Multi-Drug Resistant Organisms: None Reported Past Surgical History: Breast Surgery, Cholecystectomy, Hysterectomy, Orthopedic Surgery Additional Past Surgical History / Comment(s): 07/29/21 L iliac percutaneous balloon angioplasty with stent/atherectomy/PTBA L femoral artery/[employer]UFA[employer]ING [employer]ORD[employer]ATOR R femoral artery/R iliac stent, abdominal aortagram, bronchoscopies with biopsy, bilateral wrist carpal tunnel, TMJ surgery, left neck cyst removed, colonoscopy, left breast lumpectomy. Past Anesthesia/Blood Transfusion Reactions: Previous Problems w/ Anesthesia, Blood Transfusion Reaction Additional Past Anesthesia/Blood Transfusion Reaction / Comment(s): SLOW TO WAKE UP. had transfusion in Jan 2022-had reaction dyspnea,tachypnea,nausea Past Psychological History: Anxiety Additional Psychological History / Comment(s): Pt resides with her spouse and mother in law, currently has home care nursing. She has home O2 and a nebulizer. She is independent. Smoking Status: Former smoker Past Alcohol Use History: None Reported Additional Past Alcohol Use History / Comment(s): QUIT SMOKING 2015, smoked since age 15,SMOKED 1 PPD. Past Drug Use History: None Reported - Past Family History Father Family Medical History: Cancer Additional Family Medical History / Comment(s): LUNG CANCER. Mother Family Medical History: Cancer Additional Family Medical History / Comment(s): BREAST CANCER. Medications and Allergies Home Medications Medication Instructions Recorded Confirmed Type Hydroxychloroquine Sulfate 200 mg PO BID@0800,1700 03/29/15 09/02/22 History [Plaquenil] Fluticasone Propion/Salmeterol 1 puff INHALATION RT-BID@0800,1700 05/31/16 09/02/22 History [Advair 500-50 Diskus] Levalbuterol Hfa Inhaler [Xopenex 1 puff INHALATION RT-Q6H PRN 04/07/19 09/02/22 History Hfa Inhaler] Calcium Carbonate [Calcium] 1,200 mg PO DAILY@1200 04/29/19 09/02/22 History Letrozole [Femara] 2.5 mg PO DAILY@0800 10/23/19 09/02/22 History Albuterol Nebulized [Ventolin 2.5 mg INHALATION 11/04/20 09/02/22 History Nebulized] RT-QID@,,, buPROPion HCL [Wellbutrin SR] 100 mg PO DAILY@0800 01/09/21 09/02/22 History Cholecalciferol [Vitamin D3 (25 50 mcg PO DAILY@1700 08/03/21 09/02/22 History Mcg = 1000 Iu)] Tiotropium 2.5 Mcg/Puff [Spiriva 2 puff INHALATION RT-DAILY@0800 08/03/21 09/02/22 History Respimat 2.5 Mcg] ALPRAZolam [Xanax] 0.25 mg PO BID PRN #4 tab 08/21/22 09/02/22 Rx Collagenase [Santyl Ointment] 1 applic TOPICAL DAILY each 08/21/22 09/02/22 Rx Promethazine [Phenergan] 12.5 mg PO Q6HR PRN tab 08/21/22 09/02/22 Rx Albuterol Nebulized [Ventolin 2.5 mg INHALATION RT-Q4H PRN 09/02/22 09/02/22 History Nebulized] Aspirin 81 mg PO DAILY@1200 09/02/22 09/02/22 History Atorvastatin [Lipitor] 80 mg PO HS@2100 09/02/22 09/02/22 History Cefepime [Maxipime] 2 gm IVPB TID@08,14,09/02/22 09/02/22 History Diltiazem Oral [Cardizem*] 30 mg PO TID@06,14,09/02/22 09/02/22 History Ensure Enlive 120 - 237 ml PO TID@10,14,19 09/02/22 09/02/22 History Furosemide [Lasix] 20 mg PO BID@0800,1700 09/02/22 09/02/22 History Gabapentin [Neurontin] 400 mg PO TID@0800,1400,2200 09/02/22 09/02/22 History HYDROcodone/APAP 10-325MG [[place] 1 tab PO Q4H PRN 09/02/22 09/02/22 History 10-325] Magnesium Hydroxide [Milk of 7,200 ml PO Q48H PRN 09/02/22 09/02/22 History Magnesia Concentrate] Metoprolol Tartrate [Lopressor] 25 mg PO BID@0800,1700 09/02/22 09/02/22 History Na Phos,M-B/Na Phos,Di-Ba [Fleet 133 ml RECTAL DAILY PRN 09/02/22 09/02/22 History Adult] Pantoprazole [Protonix] 40 mg PO BID@0800,1700 09/02/22 09/02/22 History Potassium Chloride ER [K-Dur 20] 20 meq PO DAILY@0800 09/02/22 09/02/22 History Rivaroxaban [Xarelto] 2.5 mg PO BID@0800,1700 09/02/22 09/02/22 History Sennosides/Docusate Sodium [Senna 2 cap PO HS@209909/02/22 09/02/22 History Plus 8.6-50 mg Softgel] bisacodyL [Dulcolax] 10 mg RECTAL DAILY PRN 09/02/22 09/02/22 History guaiFENesin-DM 600/30MG [Mucinex 2 tab PO BID@0800,2100 09/02/22 09/02/22 Histor y Dm] Allergies Allergy/AdvReac Type Severity Reaction Status Date / Time banana Allergy Abdominal Verified 09/02/22 18:37 Pain budesonide [From Pulmicort] Allergy Dyspnea Verified 09/02/22 18:37 Iodinated Contrast Media Allergy Anaphylaxis Verified 09/02/22 18:37 [Iodinated Contrast Media - IV Dye] penicillin G Allergy Rash/Hives Verified 09/02/22 18:37 codeine AdvReac Nausea & Verified 09/02/22 18:37 Vomiting levofloxacin AdvReac joint pain Verified 09/02/22 18:37 verapamil AdvReac HEADACHE Verified 09/02/22 18:37 Physical Exam Vitals: Vital Signs Temp Pulse Pulse Pulse Resp BP Pulse Ox 09/03/22 20:31 77 18 09/03/22 20:20 71 18 09/03/22 19:14 97.9 F 67 14 106/63 99 09/03/22 17:31 69 120/50 09/03/22 15:23 72 09/03/22 15:08 76 09/03/22 11:31 98.1 F 64 16 107/55 98 09/03/22 11:16 96 09/03/22 10:58 92 09/03/22 09:36 98.3 F 65 16 101/62 94 L 09/03/22 08:00 96 09/03/22 07:51 97 09/03/22 02:18 97.1 F L 76 18 133/69 97 Intake and Output 09/03/22 09/03/22 09/04/22 14:59 22:59 06:59 Intake Total 350 Output Total 300 Balance 50 Intake: Intake, IV Titration 350 Amount Azithromycin 500 mg In 250 Sodium Chloride 0.9% 250 ml @ 250 mls/hr IVPB DAILY@1600 [facility] Rx#: [id number] Cefepime 2 gm In Sodium 100 Chloride 0.9% 100 ml @ 25 mls/hr IVPB Q8HR [facility] Rx# :[id number] Output: Urine 300 Other: Voiding Method Indwelling Catheter Indwelling Catheter GENERAL EXAM: Alert, 67-year-old white female, comfortable in no apparent distress. HEAD: Normocephalic and atraumatic EYES: Normal reaction of pupils, equal size. NOSE: Clear with pink turbinates. THROAT: No erythema or exudates. NECK: No masses, no JVD. CHEST: No chest wall deformity. LUNGS: Equal air entry with diffuse bilateral rhonchi and expiratory wheezes throughout. no crackles, focal dullness. On 3 L nasal cannula. No conversational dyspnea or accessory muscle use.. CVS: S1 and S2 normal with no audible murmur, regular rhythm. No extra heart sounds ABDOMEN: No hepatosplenomegaly, active bowel sounds, no guarding or rigidity. SPINE: No scoliosis or deformity SKIN: No rashes. Left femoral open wound healing by secondary intention. There is also a left anterior lower extremity wound with purulent drainage. CENTRAL NERVOUS SYSTEM: No focal deficits, tone is normal in all 4 extremities. EXTREMITIES: There is no peripheral edema, clubbing, or cyanosis. Peripheral pulses are faint but palpable. Results - Laboratory Findings CBC and BMP: 09/02/22 16:35 09/02/22 16:35 PT/INR, D-dimer PT 11.8 sec (9.0-12.0) 09/02/22 16:35 INR 1.1 (<1.2) 09/02/22 16:35 Abnormal lab findings: Abnormal Labs 09/02/22 09/02/22 09/02/22 16:35 16:35 16:35 WBC 15.1 H RBC 3.15 L Hgb 9.6 L Hct 30.7 L RDW 17.0 H Plt Count 138 L Neutrophils # 14.2 H Lymphocytes # 0.3 L Chloride 95 L Carbon Dioxide 41 H* BUN 27 H Glucose 116 H Troponin I 0.056 H* Total Protein 4.8 L Albumin 2.8 L - Diagnostic Findings Chest x-ray: image reviewed Assessment and Plan Assessment: Healthcare associated pneumonia, failing outpatient treatment at [facility]. Patient has had recent left lower lobe pneumonia with Pseudomonas aeruginosa being the isolated organism. Acute COPD exacerbation secondary to above. Normally maintained with a com bination of Spiriva, Advair, and albuterol inhalers. Acute on chronic hypoxemic and hypercapnic respiratory failure. Normally maintained on 2 L per minute nasal cannula home O2. Currently on 3 L nasal cannula. Elevated troponins likely related to demand ischemia due to pneumonia and hypoxia. No chest pain or obvious ischemic changes seen on ECG. Chronic wounds Sjogren's, normally maintained on Plaquenil Chronic anemia. Hemoglobin currently 9.6 g/dL Chronic atrial fibrillation anticoagulated on Xarelto Peripheral vascular disease Hyperlipidemia Hypertension GERD History of left breast cancer status post radiation and lumpectomy Ex-smoker of approximately 50 pack years Plan: Patient's medications, labs, chest x-ray reviewed Continue antibiotics with cefepime and azithromycin coverage Check pro-calcitonin level Obtain sputum culture Order flutter valve Continue bronchodilators Patient is going to have her Advair inhaler brought in Start high-dose Solu-Medrol Continue supplemental oxygen to maintain oxygen saturation of 92% or greater Repeat chest x-ray in the morning Obtain blood culture Trend troponins Wound care was consulted We will continue to follow I have personally seen and examined the patient, performed the documentation and the assessment and plan as written. Number of minutes spent on the visit:20 Time with Patient: Greater than 30
[2022-09-04] MEDS: methylPREDNISolone SOD SUCCI 125 MG/2 ML VIAL IV SCH ×4 (05:48→23:50)
[2022-09-04] MEDS: DILTIAZEM ORAL 30 MG TAB PO SCH ×3 (05:49→21:19)
[2022-09-04] MEDS ORDERED: IPRATROPIUM 0.5 MG/2.5 ML NEBU INHALATION SCH (08:00)
[2022-09-04] MEDS: LETROZOLE 2.5 MG TAB PO SCH (08:32)
[2022-09-04] MEDS: guaiFENesin-DM 600/30MG 1 EACH TAB.ER.12H PO SCH ×2 (08:32→21:19)
[2022-09-04] MEDS: PANTOPRAZOLE 40 MG TABLET PO SCH ×2 (08:32→17:23)
[2022-09-04] MEDS: RIVAROXABAN 2.5 MG TABLET PO SCH ×2 (08:32→17:22)
[2022-09-04] MEDS: POTASSIUM CHLORIDE ER 20 MEQ TAB.ER PO SCH (08:32)
[2022-09-04] MEDS: METOPROLOL TARTRATE 25 MG TAB PO SCH ×2 (08:32→17:23)
[2022-09-04] MEDS: HYDROXYCHLOROQUINE SULFATE 200 MG TAB PO SCH ×2 (08:32→17:22)
[2022-09-04] MEDS: GABAPENTIN 400 MG CAP PO SCH ×3 (08:33→21:19)
[2022-09-04] MEDS: CEFEPIME 2 GM in SODIUM CHLORIDE 0.9% 100 ML IVPB SCH ×3 (08:33→23:50)
[2022-09-04] MEDS: ADVAIR INHALATION SCH ×2 (08:33→16:28)
[2022-09-04] MEDS: FUROSEMIDE 20 MG TAB PO SCH ×2 (08:33→17:22)
[2022-09-04] MEDS: buPROPion SR 100 MG TABLET.ER PO SCH (08:33)
[2022-09-04] MEDS: ALBUTEROL NEBULIZED 2.5 MG/3 ML INHALATION SCH ×4 (08:37→20:26)
[2022-09-04] MEDS: IPRATROPIUM 0.5 MG/2.5 ML NEBU INHALATION SCH ×4 (08:37→20:26)
[2022-09-04 08:48] LABS: Basophils # (A) 0.03 X 10*3/uL (0.00-0.10); Basophils % (A) 0.3 %; Eosinophils # (A) 0 X 10*3/uL (0.04-0.35); Eosinophils % (A) 0 %; HCT 28.3 % (37.2-46.3); HGB 7.9 g/dL (12.0-15.0); Immature Grans, Automated 0.4 %; Lymphocytes % (A) 3.4 %; MCH 29.5 pg (27.0-32.0); MCHC 27.9 g/dL (32.0-37.0); MCV 105.6 fL (80.0-97.0); Mean Platelet Volume 10.9 fL (9.5-12.2); Monocytes # (A) 0.46 X 10*3/uL (0.20-1.00); Monocytes % (A) 3.9 %; NRBC Per 100 WBC 0 /100 WBCS (0.0-0.0); Neutrophils # (A) 10.85 X 10*3/uL (1.80-7.70); Platelet Count 123 X 10*3/uL (140-440); RBC 2.68 X 10*6/uL (4.10-5.20); RDW 17.9 % (11.5-14.5); WBC 11.79 X 10*3/uL (4.50-10.00)
--- NOTE | 2022-09-04 09:10 | XR ---
EXAMINATION TYPE: XR chest 1V portable DATE OF EXAM: 09/04/2022 COMPARISON: NONE HISTORY: shortness of breath TECHNIQUE: Single frontal view of the chest is obtained. FINDINGS: Stable right-sided PICC line. Background chronic emphysematous change with left greater th an right lower lung increased opacities. Cardiac silhouette size stable and mildly enlarged with athe rosclerotic change involving the aortic knob. Osseous structures are intact. Metallic stents are seen in the left hilum. There is diffuse osteopenia. Calcification along the right humeral head suggests calcific tendinosis. IMPRESSION: Bilateral consolidation and pleural effusion greater on the left superimposed on a backg round COPD is mildly progressed.
[2022-09-04 09:30] LABS: C Reactive Protein 21.8 mg/dL (0.00-0.80)
[2022-09-04 09:34] LABS: Anion Gap 3.5 mmol/L (10.00-18.00); BUN/Creat Ratio 56.5 Ratio (12.00-20.00); Blood Urea Nitrogen 22.6 mg/dL (9.0-27.0); Calcium 9.6 mg/dL (8.7-10.3); Carbon Dioxide 43.5 mmol/L (20.0-27.5); Potassium 3.5 mmol/L (3.5-5.5)
--- NOTE | 2022-09-04 09:46 | US ---
EXAMINATION TYPE: US chest DATE OF EXAM: 09/04/2022 COMPARISON: NONE CLINICAL HISTORY: Markings for thoracentesis by pulmonary staff. pleural effusion TECHNIQUE: Targeted ultrasound of the posterior lower bilateral EXAM MEASUREMENTS: Right Pleural Effusion pocket size: 10.7 cm Right skin surface to fluid distance: 2.3 cm Left Pleural Effusion pocket size: 7.5 cm Left skin surface to fluid distance: 2.4 cm Right side NOT marked due to lung tissue within anterior portion of the effusion Left side marked for possible thoracentesis outside the dept. Pulmonologists are able to review the images in the patient?s EMR. IMPRESSIONS: 1. Bilateral pleural effusions
[2022-09-04] MEDS: CALCIUM CARBONATE 500 MG CHEWABLE PO SCH (12:05)
[2022-09-04] MEDS: ASPIRIN 81 MG PO SCH (12:05)
--- NOTE | 2022-09-04 12:20 | P.CONS ---
History of Present Illness - Reason for Consult Consult date: 09/04/22 wound care - History of Present Illness This is a 67-year-old patient who was seen in the wound care center on 08/25/2002. Past medical history significant for peripheral arterial disease. Patient had grafting done to the left lower extremity and had open incisions to the thigh and calf. Patient also had a RAJESH drain in place previously. Patient has an open ulceration to the left groin to the medial left calf. Patient had developed a new ulceration to the left Achilles, the plantar portion of the left great toe, and fifth digit. She is currently utilizing Santyl. Original cause of wound was Surgical Injury. The date acquired was: 08/06/2022. The wound is currently classified as a Full Thickness Without Exposed Support Structures wound with etiology of Open Surgical Wound and is located on the Left,Medial Upper Leg. The wound measures 9.8cm length x 0.8cm width x 0.8cm depth; 6.158cm^2 area and 4.926cm^3 volume. There is Fat Layer (Subcutaneous Tissue) exposed. There is no tunneling or undermining noted. There is a medium amount of serous drainage noted. The wound margin is flat and intact. There is small (1- 33%) pink granulation within the wound bed. There is a large (67-100%) amount of necrotic tissue within the wound bed including Adherent Slough. The periwound skin appearance exhibited: Scarring. The periwound skin appearance did not exhibit: Callus, Crepitus, Excoriation, Induration, Rash, Dry/Scaly, Maceration, Atrophie [place], Cyanosis, Ecchymosis, Hemosiderin Staining, Mottled, Pallor, Rubor, Erythema. Periwound temperature was noted as No Abnormality. The periwound has tenderness on palpation. Original cause of wound was Surgical Injury. The date acquired was: 08/06/2022. The wound is currently classified as a Full Thickness Without Exposed Support Structures wound with etiology of Open Surgical Wound and is located on the Left,Medial Lower Leg. The wound measures 11cm length x 2.4cm width x 4cm depth; 20.735cm^2 area and 82.938cm^3 volume. There is Fat Layer (Subcutaneous Tissue) exposed. There is no tunneling or undermining noted. There is a large amount of serous drainage noted. The wound margin is distinct with the outline attached to the wound base. There is small (1-33%) red granulation within the wound bed. There is a large (67-100%) amount of necrotic tissue within the wound bed including Eschar and Adherent Slough. The periwound skin appearance exhibited: Scarring. The periwound skin appearance did not exhibit: Callus, Crepitus, Excoriation, Induration, Rash, Dry/Scaly, Maceration, Atrophie [place], Cyanosis, Ecchymosis, Hemosiderin Staining, Mottled, Pallor, Rubor, Erythema.Original cause of wound was Pressure Injury. The date acquired was: 08/19/2022. The wound is currently classified as a Category/Stage III wound with etiology of Pressure Ulcer and is located on the Left,Posterior Achilles. The wound measures 4.3cm length x 1.2cm width x 0.1cm depth; 4.053cm^2 area and 0.405cm^3 volume. There is no tunneling or undermining noted. There is a small amount of serous drainage noted. The wound margin is flat and intact. There is no granulation within the wound bed. There is a large (67-100%) amount of necrotic tissue within the wound bed including Eschar. The periwound skin appearance exhibited: Scarring. The periwound skin appearance did not exhibit: Callus, Crepitus, Excoriation, Induration, Rash, Dry/Scaly, Maceration, Atrophie [place], Cyanosis, Ecchymosis, Hemosiderin Staining, Mottled, Pallor, Rubor, Erythema. Periwound temperature was noted as No Abnormality. The periwound has tenderness on palpation. Review Of Systems: Constitutional: No fever, no chills, no night sweats. No weight change. No weakness, fatigue or lethargy. No daytime sleepiness. Integumentary:reports wounds, no lesions. No rash or pruritus. No unusual bruising. No change in hair or nails. Physical exam: General Appearance: Alert, cooperative, no distress, appears stated age. Skin: See HPI all other Skin color, texture, tugor normal, no rashes or lesions. Neurologic: Alert oriented x3 Assessment: 1. Atherosclerosis of [place] arteries of left leg with ulceration of thigh 2. Atherosclerosis of [place] arteries of left leg with ulceration of calf 3. Atherosclerosis of [place] arteries of left leg with ulceration of ankle Plan: 1. Apply Santyl, saline moistened gauze, dry gauze, rolled gauze and secure with paper tape. Change daily. Utilize heel protector for offloading of the left Achilles. Patient will return to the wound care center on September 11 at 9 AM Thank you for the consultation any questions please contact the wound care center DNP note has been reviewed and discussed with Dr. Mina and the impression and plan of care has been directed as dictated. Past Medical History Past Medical History: Atrial Fibrillation, Cancer, COPD, GERD/Reflux, Hyperlipidemia, Pneumonia, Respiratory Disorder, Vascular Disorder Additional Past Medical History / Comment(s): wound left leg-following wound care w/ Libby Pacheco upper lobe nodule being monitored, home oxygen at 2L /CONTINOUS, PVD, osteoporosis, constipation. LEFT BREAST CANCER received radiation 2019 History of Any Multi-Drug Resistant Organisms: None Reported Past Surgical History: Breast Surgery, Cholecystectomy, Hysterectomy, Orthopedic Surgery Additional Past Surgical History / Comment(s): 07/29/21 L iliac percutaneous balloon angioplasty with stent/atherectomy/PTBA L femoral artery/[employer] A[employer] R femoral artery/R iliac stent, abdominal aortagram, bronchoscopies with biopsy, bilateral wrist carpal tunnel, TMJ surgery, left neck cyst removed, colonoscopy, left breast lumpectomy. Past Anesthesia/Blood Transfusion Reactions: Previous Problems w/ Anesthesia, Blood Transfusion Reaction Additional Past Anesthesia/Blood Transfusion Reaction / Comm: SLOW TO WAKE UP. had transfusion in Jan 2022-had reaction dyspnea,tachypnea,nausea Past Psychological History: Anxiety Additional Psychological History / Comment(s): Pt resides with her spouse and mother in law, currently has home care nursing. She has home O2 and a nebulizer. She is independent. Smoking Status: Former smoker Past Alcohol Use History: None Reported Additional Past Alcohol Use History / Comment(s): QUIT SMOKING 2015, smoked since age 15,SMOKED 1 PPD. Past Drug Use History: None Reported - Past Family History Father Family Medical History: Cancer Additional Family Medical History / Comment(s): LUNG CANCER. Mother Family Medical History: Cancer Additional Family Medical History / Comment(s): BREAST CANCER. Medications and Allergies Home Medications Medication Instructions Recorded Confirmed Type Hydroxychloroquine Sulfate 200 mg PO BID@0800,1700 03/29/15 09/02/22 History [Plaquenil] Fluticasone Propion/Salmeterol 1 puff INHALATION RT-BID@0800,1700 05/31/16 09/02/22 History [Advair 500-50 Diskus] Levalbuterol Hfa Inhaler [Xopenex 1 puff INHALATION RT-Q6H PRN 04/07/19 09/02/22 History Hfa Inhaler] Calcium Carbonate [Calcium] 1,200 mg PO DAILY@1200 04/29/19 09/02/22 History Letrozole [Femara] 2.5 mg PO DAILY@0800 10/23/19 09/02/22 History Albuterol Nebulized [Ventolin 2.5 mg INHALATION 11/04/20 09/02/22 History Nebulized] RT-QID@08,,, buPROPion HCL [Wellbutrin SR] 100 mg PO DAILY@0800 01/09/21 09/02/22 History Cholecalciferol [Vitamin D3 (25 50 mcg PO DAILY@1700 08/03/21 09/02/22 History Mcg = 1000 Iu)] Tiotropium 2.5 Mcg/Puff [Spiriva 2 puff INHALATION RT-DAILY@0800 08/03/21 09/02/22 History Respimat 2.5 Mcg] ALPRAZolam [Xanax] 0.25 mg PO BID PRN #4 tab 08/21/22 09/02/22 Rx Collagenase [Santyl Ointment] 1 applic TOPICAL DAILY each 08/21/22 09/02/22 Rx Promethazine [Phenergan] 12.5 mg PO Q6HR PRN tab 08/21/22 09/02/22 Rx Albuterol Nebulized [Ventolin 2.5 mg INHALATION RT-Q4H PRN 09/02/22 09/02/22 History Nebulized] Aspirin 81 mg PO DAILY@1200 09/02/22 09/02/22 History Atorvastatin [Lipitor] 80 mg PO HS@2100 09/02/22 09/02/22 History Cefepime [Maxipime] 2 gm IVPB TID@,,09/02/22 09/02/22 History Diltiazem Oral [Cardizem*] 30 mg PO TID@06,14,22 09/02/22 09/02/22 History Ensure Enlive 120 - 237 ml PO TID@10,14,19 09/02/22 09/02/22 History Furosemide [Lasix] 20 mg PO BID@0800,1700 09/02/22 09/02/22 History Gabapentin [Neurontin] 400 mg PO TID@0800,1400,2200 09/02/22 09/02/22 History HYDROcodone/APAP 10-325MG [[place] 1 tab PO Q4H PRN 09/02/22 09/02/22 History 10-325] Magnesium Hydroxide [Milk of 7,200 ml PO Q48H PRN 09/02/22 09/02/22 History Magnesia Concentrate] Metoprolol Tartrate [Lopressor] 25 mg PO BID@0800,1700 09/02/22 09/02/22 History Na Phos,M-B/Na Phos,Di-Ba [Fleet 133 ml RECTAL DAILY PRN 09/02/22 09/02/22 History Adult] Pantoprazole [Protonix] 40 mg PO BID@0800,1700 09/02/22 09/02/22 History Potassium Chloride ER [K-Dur 20] 20 meq PO DAILY@0800 09/02/22 09/02/22 History Rivaroxaban [Xarelto] 2.5 mg PO BID@0800,1700 09/02/22 09/02/22 History Sennosides/Docusate Sodium [Senna 2 cap PO HS@2100 09/02/22 09/02/22 History Plus 8.6-50 mg Softgel] bisacodyL [Dulcolax] 10 mg RECTAL DAILY PRN 09/02/22 09/02/22 History guaiFENesin-DM 600/30MG [Mucinex 2 tab PO BID@0800,2100 09/02/22 09/02/22 History Dm] Allergies Allergy/AdvReac Type Severity Reaction Status Date / Time banana Allergy Abdominal Verified 09/02/22 18:37 Pain budesonide [From Pulmicort] Allergy Dyspnea Verified 09/02/22 18:37 Iodinated Contrast Media Allergy Anaphylaxis Verified 09/02/22 18:37 [Iodinated Contrast Media - IV Dye] penicillin G Allergy Rash/Hives Verified 09/02/22 18:37 codeine AdvReac Nausea & Verified 09/02/22 18:37 Vomiting levofloxacin AdvReac joint pain Verified 09/02/22 18:37 verapamil AdvReac HEADACHE Verified 09/02/22 18:37 Physical Exam Vitals: Vital Signs Temp Pulse Pulse Pulse Resp BP BP 09/04/22 12:10 72 09/04/22 11:37 98.1 F 71 15 118/69 09/04/22 09:04 78 09/04/22 08:46 76 09/04/22 07:12 98.1 F 73 16 122/70 09/04/22 01:21 98.2 F 71 14 119/68 09/03/22 20:31 77 18 09/03/22 20:20 71 18 09/03/22 19:14 97.9 F 67 14 106/63 09/03/22 17:31 69 120/50 09/03/22 15:23 72 09/03/22 15:08 76 Pulse Ox 09/04/22 12:10 09/04/22 11:37 99 09/04/22 09:04 09/04/22 08:46 92 L 09/04/22 07:12 97 09/04/22 01:21 96 09/03/22 20:31 09/03/22 20:20 09/03/22 19:14 99 09/03/22 17:31 09/03/22 15:23 09/03/22 15:08 Intake and Output 09/03/22 09/04/22 09/04/22 22:59 06:59 14:59 Intake Total 350 Output Total 300 375 Balance 50 -375 Intake: Intake, IV Titration 350 Amount Azithromycin 500 mg In 250 Sodium Chloride 0.9% 250 ml @ 250 mls/hr IVPB DAILY@1600 [facility] Rx#: [id number] Cefepime 2 gm In Sodium 100 Chloride 0.9% 100 ml @ 25 mls/hr IVPB Q8HR [facility] Rx# :[id number] Output: Urine 300 375 Other: Voiding Method Indwelling Catheter Indwelling Catheter Results CBC & Chem 7: 09/04/22 04:25 09/04/22 04:25 Labs: Abnormal Lab Results - Last 24 Hours (Table) 04/03/23 04/03/23 04/03/23 Range/Units 04:25 04:25 04:25 WBC 11.79 H (4.50-10.00) X 10*3/uL RBC 2.68 L (4.10-5.20) X 10*6/uL Hgb 7.9 L (12.0-15.0) g/dL Hct 28.3 L (37.2-46.3) % MCV 105.6 H (80.0-97.0) fL MCHC 27.9 L (32.0-37.0) g/dL RDW 17.9 H (11.5-14.5) % Plt Count 123 L (140-440) X 10*3/uL Immature Gran # 0.05 H (0.00-0.04) X 10*3/uL Neutrophils # 10.85 H (1.80-7.70) X 10*3/uL Lymphocytes # 0.40 L (0.90-5.00) X 10*3/uL Eosinophils # 0 L (0.04-0.35) X 10*3/uL Sodium 146 H (135-145) mmol/L Carbon Dioxide 43.5 H* (20.0-27.5) mmol/L Anion Gap 3.50 L (10.00-18.00) mmol/L Creatinine 0.4 L (0.6-1.5) mg/dL BUN/Creatinine Ratio 56.50 H (12.00-20.00) Ratio C-Reactive Protein 21.80 H (0.00-0.80) mg/dL Procalcitonin 0.26 H (0.02-0.09) ng/mL Assessment and Plan (1) Atherosclerosis of [place] arteries of left leg with ulceration of thigh Current Visit: Yes Status: Acute Code(s): I70.241 - ATHSCL [place] ARTERIES OF LEFT LEG W ULCERATION OF THIGH SNOMED Code(s): 511674757 (2) Atherosclerosis of [place] arteries of left leg with ulceration of calf Current Visit: Yes Status: Acute Code(s): I70.242 - ATHSCL [place] ARTERIES OF LEFT LEG W ULCERATION OF CALF SNOMED Code(s): 610986081 (3) Atherosclerosis of [place] arteries of left leg with ulceration of ankle Current Visit: Yes Status: Acute Code(s): I70.243 - ATHSCL [place] ARTERIES OF LEFT LEG W ULCERATION OF ANKLE SNOMED Code(s): 870381956
[2022-09-04 12:43] VITALS: BMI 22.2
[2022-09-04] MEDS: COLLAGENASE 250 UNIT/GM OINTMENT 30 GM TUBE TOPICAL SCH (13:55)
[2022-09-04] MEDS ORDERED: bisacodyL 10 MG SUPP RECTAL PRN (14:01)
[2022-09-04] MEDS: AZITHROMYCIN 500 MG in SODIUM CHLORIDE 0.9% 250 ML IVPB SCH (16:29)
[2022-09-04] MEDS: CHOLECALCIFEROL 25 MCG (1000 IU) TABLET PO SCH (17:22)
--- NOTE | 2022-09-04 17:43 | P.GSCN ---
History of Present Illness Consult date: 09/04/22 Reason for Consult: Left leg wound Requesting physician: Marleny Mcdonald History of present illness: This is a pleasant 67-year-old lady well known to vascular surgical services and Dr. Garcia who was recently hospitalized for COPD exacerbation from 08/08/2019- 08/21/2022. Patient has a history of peripheral arterial disease and underwent a left femoral endarterectomy with removal of femoral and profundus stent, left femoral and SFA patch angioplasty, with fem-tib tib bypass with in situ vein on 07/22/2022. During her last hospitalization she had left femoral artery pseudoaneurysm with bleed, and a left femoral patch leak. She underwent a left femoral artery pseudoaneurysm repair with left external iliac endarterectomy and partial stent removal, open thrombectomy left fem-tib vein bypass and profundus artery and patch angioplasty of left common femoral and external iliac artery with pericardial patch with Incisional VAC and RAJESH drain placed on 08/15/2022. Patient had significant improvement in her left lower extremity pain prior to discharge. She has been at many large states that she has been doing physical therapy. States she has significantly improved pain down the left lower extremity. States that she has been following with the wound care clinic. The physician at [facility] removed her RAJESH drain. Left groin is well-healed. She states she's been afebrile. She states however she has been having significant shortness of breath and coughing. She was admitted for COPD exacerbation, pneumonia. Vascular surgery was consulted for left lower extremity wound. Apparently patient has a new wound that was not present during her last hospitalization on the left Achilles region and the left plantar aspect of great toe. She currently states she is short of breath, no chest pain, no abdominal pain, nausea or vomiting. No pain in lower extremities. Review of Systems A 14 point review systems was completed all pertinent positives and negatives as stated in the HPI. Past Medical History Past Medical History: Atrial Fibrillation, Cancer, COPD, GERD/Reflux, Hyperlipidemia, Pneumonia, Respiratory Disorder, Vascular Disorder Additional Past Medical History / Comment(s): wound left leg-following wound care w/ Libby Pacheco upper lobe nodule being monitored, home oxygen at 2L/CONTINOUS, PVD, osteoporosis, constipation. LEFT BREAST CANCER received radiation 2019 History of Any Multi-Drug Resistant Organisms: None Reported Past Surgical History: Breast Surgery, Cholecystectomy, Hysterectomy, Orthopedic Surgery Additional Past Surgical History / Comment(s): 07/29/21 L iliac percutaneous [place] angioplasty with stent/atherectomy/PTBA L femoral artery/[employer] R femoral artery/R iliac stent, abdominal aortagram, bronchoscopies with biopsy, bilateral wrist carpal tunnel, TMJ surgery, left neck cyst removed, colonoscopy, left breast lumpectomy. Past Anesthesia/Blood Transfusion Reactions: Previous Problems w/ Anesthesia, Blood Transfusion Reaction Additional Past Anesthesia/Blood Transfusion Reaction / Comm: SLOW TO WAKE UP. had transfusion in Jan 2022-had reaction dyspnea,tachypnea,nausea Past Psychological History: Anxiety Additional Psychological History / Comment(s): Pt resides with her spouse and mother in law, currently has home care nursing. She has home O2 and a nebulizer. She is independent. Smoking Status: Former smoker Past Alcohol Use History: None Reported Additional Past Alcohol Use History / Comment(s): QUIT SMOKING 2015, smoked since age 15,SMOKED 1 PPD. Past Drug Use History: None Reported - Past Family History Father Family Medical History: Cancer Additional Family Medical History / Comment(s): LUNG CANCER. Mother Family Medical History: Cancer Additional Family Medical History / Comment(s): BREAST CANCER. Medications and Allergies Home Medications Medication Instructions Recorded Confirmed Type Hydroxychloroquine Sulfate 200 mg PO BID@0800,1700 03/29/15 09/02/22 History [Plaquenil] Fluticasone Propion/Salmeterol 1 puff INHALATION RT-BID@0800,1700 05/31/16 09/02/22 History [Advair 500-50 Diskus] Levalbuterol Hfa Inhaler [Xopenex 1 puff INHALATION RT-Q6H PRN 04/07/19 09/02/22 History Hfa Inhaler] Calcium Carbonate [Calcium] 1,200 mg PO DAILY@1200 04/29/19 09/02/22 History Letrozole [Femara] 2.5 mg PO DAILY@0800 10/23/19 09/02/22 History Albuterol Nebulized [Ventolin 2.5 mg INHALATION 11/04/20 09/02/22 History Nebulized] RT-QID@08,12,17,21 buPROPion HCL [Wellbutrin SR] 100 mg PO DAILY@0800 01/09/21 09/02/22 History Cholecalciferol [Vitamin D3 (25 50 mcg PO DAILY@1700 08/03/21 09/02/22 History Mcg = 1000 Iu)] Tiotropium 2.5 Mcg/Puff [Spiriva 2 puff INHALATION RT-DAILY@0800 08/03/21 09/02/22 History Respimat 2.5 Mcg] ALPRAZolam [Xanax] 0.25 mg PO BID PRN #4 tab 08/21/22 09/02/22 Rx Collagenase [Santyl Ointment] 1 applic TOPICAL DAILY each 08/21/22 09/02/22 Rx Promethazine [Phenergan] 12.5 mg PO Q6HR PRN tab 08/21/22 09/02/22 Rx Albuterol Nebulized [Ventolin 2.5 mg INHALATION RT-Q4H PRN 09/02/22 09/02/22 History Nebulized] Aspirin 81 mg PO DAILY@1200 09/02/22 09/02/22 History Atorvastatin [Lipitor] 80 mg PO HS@2100 09/02/22 09/02/22 History Cefepime [Maxipime] 2 gm IVPB TID@08,14,09/02/22 09/02/22 History Diltiazem Oral [Cardizem*] 30 mg PO TID@06,14,09/02/22 09/02/22 History Ensure Enlive 120 - 237 ml PO TID@10,14,19 09/02/22 09/02/22 History Furosemide [Lasix] 20 mg PO BID@0800,1700 09/02/22 09/02/22 History Gabapentin [Neurontin] 400 mg PO TID@0800,1400,2200 09/02/22 09/02/22 History HYDROcodone/APAP 10-325MG [[place] 1 tab PO Q4H PRN 09/02/22 09/02/22 History 10-325] Magnesium Hydroxide [Milk of 7,200 ml PO Q48H PRN 09/02/22 09/02/22 History Magnesia Concentrate] Metoprolol Tartrate [Lopressor] 25 mg PO BID@0800,1700 09/02/22 09/02/22 History Na Phos,M-B/Na Phos,Di-Ba [Fleet 133 ml RECTAL DAILY PRN 09/02/22 09/02/22 History Adult] Pantoprazole [Protonix] 40 mg PO BID@0800,1700 09/02/22 09/02/22 History Potassium Chloride ER [K-Dur 20] 20 meq PO DAILY@0800 09/02/22 09/02/22 History Rivaroxaban [Xarelto] 2.5 mg PO BID@0800,1700 09/02/22 09/02/22 History Sennosides/Docusate Sodium [Senna 2 cap PO HS@2100 09/02/22 09/02/22 History Plus 8.6-50 mg Softgel] bisacodyL [Dulcolax] 10 mg RECTAL DAILY PRN 09/02/22 09/02/22 History guaiFENesin-DM 600/30MG [Mucinex 2 tab PO BID@0800,2100 09/02/22 09/02/22 History Dm] Allergies Allergy/AdvReac Type Severity Reaction Status Date / Time banana Allergy Abdominal Verified 09/02/22 18:37 Pain budesonide [From Pulmicort] Allergy Dyspnea Verified 09/02/22 18:37 Iodinated Contrast Media Allergy Anaphylaxis Verified 09/02/22 18:37 [Iodinated Contrast Media - IV Dye] penicillin G Allergy Rash/Hives Verified 09/02/22 18:37 codeine AdvReac Nausea & Verified 09/02/22 18:37 Vomiting levofloxacin AdvReac joint pain Verified 09/02/22 18:37 verapamil AdvReac HEADACHE Verified 09/02/22 18:37 Surgical - Exam Vital Signs Temp Pulse Resp BP Pulse Ox 98.2 F 84 22 104/67 98 09/02/22 15:35 09/02/22 15:35 09/02/22 15:35 09/02/22 15:35 09/02/22 15:35 General appearance: The patient is alert, oriented, appears in no acute dist ress. HET: Head is normocephalic and atraumatic. Pupils are equal and reactive. Neck: Supple. Heart: Regular. Lungs: Equal expansion, bilateral wheezes. Abdomen: Soft, nontender, nondistended. Extremities: Left lower extremity with palpable bypass graft, left foot warm to the touch with good capillary refill. Sensorimotor intact. Left groin incision well approximated without any drainage. Palpable firm area just around the incision, nontender. Left upper medial thigh surgical wound with small amount of serous drainage, left medial aspect of the calf with open wound with fat layer exposed, large amount of serous drainage with eschar and slough tissue. Left great toe and left posterior Achilles with pressure ulcers with necrotic tissue. Neurological: Alert and oriented 3. Results - Labs 09/04/22 04:25 09/04/22 04:25 Abnormal Lab Results - Last 24 Hours (Table) 09/04/22 09/04/22 09/04/22 Range/Units 04:25 04:25 04:25 WBC 11.79 H (4.50-10.00) X 10*3/uL RBC 2.68 L (4.10-5.20) X 10*6/uL Hgb 7.9 L (12.0-15.0) g/dL Hct 28.3 L (37.2-46.3) % MCV 105.6 H (80.0-97.0) fL MCHC 27.9 L (32.0-37.0) g/dL RDW 17.9 H (11.5-14.5) % Plt Count 123 L (140-440) X 10*3/uL Immature Gran # 0.05 H (0.00-0.04) X 10*3/uL Neutrophils # 10.85 H (1.80-7.70) X 10*3/uL Lymphocytes # 0.40 L (0.90-5.00) X 10*3/uL Eosinophils # 0 L (0.04-0.35) X 10*3/uL Sodium 146 H (135-145) mmol/L Carbon Dioxide 43.5 H* (20.0-27.5) mmol/L Anion Gap 3.50 L (10.00-18.00) mmol/L Creatinine 0.4 L (0.6-1.5) mg/dL BUN/Creatinine Ratio 56.50 H (12.00-20.00) Ratio C-Reactive Protein 21.80 H (0.00-0.80) mg/dL Procalcitonin 0.26 H (0.02-0.09) ng/mL Diabetes panel 09/04/22 Range/Units 04:25 Sodium 146 H (135-145) mmol/L Potassium 3.5 (3.5-5.5) mmol/L Chloride 99 (96-109) mmol/L Carbon Dioxide 43.5 H* (20.0-27.5) mmol/L BUN 22.6 (9.0-27.0) mg/dL Creatinine 0.4 L (0.6-1.5) mg/dL Glucose 84 (70-110) mg/dL Calcium 9.6 (8.7-10.3) mg/dL Calcium panel 09/04/22 Range/Units 04:25 Calcium 9.6 (8.7-10.3) mg/dL Pituitary panel 09/04/22 Range/Units 04:25 Sodium 146 H (135-145) mmol/L Potassium 3.5 (3.5-5.5) mmol/L Chloride 99 (96-109) mmol/L Carbon Dioxide 43.5 H* (20.0-27.5) mmol/L BUN 22.6 (9.0-27.0) mg/dL Creatinine 0.4 L (0.6-1.5) mg/dL Glucose 84 (70-110) mg/dL Calcium 9.6 (8.7-10.3) mg/dL Adrenal panel 09/04/22 Range/Units 04:25 Sodium 146 H (135-145) mmol/L Potassium 3.5 (3.5-5.5) mmol/L Chloride 99 (96-109) mmol/L Carbon Dioxide 43.5 H* (20.0-27.5) mmol/L BUN 22.6 (9.0-27.0) mg/dL Creatinine 0.4 L (0.6-1.5) mg/dL Glucose 84 (70-110) mg/dL Calcium 9.6 (8.7-10.3) mg/dL Assessment and Plan Assessment: 1. Pneumonia 2. Acute COPD exacerbation secondary to above 3. Left lower extremity open surgical wounds 4. Left great toe and left Achilles region pressure ulcers 5. 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 Left lower extremity peripheral arterial disease status post revascularization with bypass graft Plan: 1. Continue medical management 2. Continue local wound care per recommendations from wound clinic 3. Further recommendations forthcoming per vascular surgeon Thank you for this consultation, we will continue to follow. The impression and plan of care has been dictated as directed. I performed a history and examination of this patient, discussed the same with the dictator. I agree with the dictator's note ,documented as a scribe. Any additional findings or plans will be noted.
--- NOTE | 2022-09-04 18:54 | P.CONS ---
History of Present Illness - Reason for Consult Consult date: 09/04/22 Left lower leg wound Requesting physician: Marleny Mcdonald - Chief Complaint Increasing shortness of breath x few days - History of Present Illness Patient is a 67-year-old female who was recently admitted at this facility and treated for Pseudomonas bacteremia related to combination of pneumonia and left groin infected wound patient did clear her bacteremia at the patient also have extensive surgery and debridement of the left groin wound patient was discharged to the longterm on cefepime 2 g every 8 hours with the patient was currently receiving at the longterm patient was sent to the ER 2 days ago for evaluation of increasing shortness of breath that apparently has been getting worse for few days before presentation to the hospital patient denies having any chest pain she did have a cough moderate intensity and is bringing up some yellowish sputum no hemoptysis no nausea no vomiting no abdominal pain or diarrhea patient left groin wound is almost healed however still has significant nonhealing to the left lower leg wound area patient on pr esentation to the hospital was afebrile and no fever has been recorded subsequently patient is currently 99% on 4 L nasal cannula did have white count 15.1 with a left shift BUN was mildly elevated creatinine is normal liver enzymes are normal troponin was mildly elevated CRP of 21.80 procal 0.26 COVID testing was negative patient did have a chest x-ray finding considering the worsening bibasilar pneumonia patient did have a chest ultrasound bilateral effusion patient has been continued on cefepime started on Solu-Medrol infectious disease was consulted for further management of antibiotic therapy patient consulted for wound to the left lower leg the patient has been complaining of pain can be dull aching to sharp moderate intensity no foul- smelling drainage Review of Systems Positive point has been mentioned in the HPI rest of the systems are negative Past Medical History Past Medical History: Atrial Fibrillation, Cancer, COPD, GERD/Reflux, Hyperlipidemia, Pneumonia, Respiratory Disorder, Vascular Disorder Additional Past Medical History / Comment(s): wound left leg-following wound care w/ Libby Pacheco upper lobe nodule being monitored, home oxygen at 2L/CONTINOUS, PVD, osteoporosis, constipation. LEFT BREAST CANCER received radiation 2020 History of Any Multi-Drug Resistant Organisms: None Reported Past Surgical History: Breast Surgery, Cholecystectomy, Hysterectomy, Orthopedic Surgery Additional Past Surgical History / Comment(s): 07/29/21 L iliac percutaneous balloon angioplasty with stent/atherectomy/PTBA L femoral artery/INSERTER PROMOTIONAL ITEM R femoral artery/R iliac stent, abdominal aortagram, bronchoscopies with biopsy, bilateral wrist carpal tunnel, TMJ surgery, left neck cyst removed, colonoscopy, left ann st lumpectomy. Past Anesthesia/Blood Transfusion Reactions: Previous Problems w/ Anesthesia, Blood Transfusion Reaction Additional Past Anesthesia/Blood Transfusion Reaction / Comm: SLOW TO WAKE UP. had transfusion in Jan 2022-had reaction dyspnea,tachypnea,nausea Past Psychological History: Anxiety Additional Psychological History / Comment(s): Pt resides with her spouse and mother in law, currently has home care nursing. She has home O2 and a nebulizer. She is independent. Smoking Status: Former smoker Past Alcohol Use History: None Reported Additional Past Alcohol Use History / Comment(s): QUIT SMOKING 2015, smoked since age 15,SMOKED 1 PPD. Past Drug Use History: None Reported - Past Family History Father Family Medical History: Cancer Additional Family Medical History / Comment(s): LUNG CANCER. Mother Family Medical History: Cancer Additional Family Medical History / Comment(s): BREAST CANCER. Medications and Allergies Home Medications Medication Instructions Recorded Confirmed Type Hydroxychloroquine Sulfate 200 mg PO BID@0800,1700 03/29/15 09/02/22 History [Plaquenil] Fluticasone Propion/Salmeterol 1 puff INHALATION RT-BID@0800,1700 05/31/16 09/02/22 History [Advair 500-50 Diskus] Levalbuterol Hfa Inhaler [Xopenex 1 puff INHALATION RT-Q6H PRN 04/07/19 09/02/22 History Hfa Inhaler] Calcium Carbonate [Calcium] 1,200 mg PO DAILY@1200 04/29/19 09/02/22 History Letrozole [Femara] 2.5 mg PO DAILY@0800 10/23/19 09/02/22 History Albuterol Nebulized [Ventolin 2.5 mg INHALATION 11/04/20 09/02/22 History Nebulized] RT-QID@08,,, buPROPion HCL [Wellbutrin SR] 100 mg PO DAILY@0800 01/09/21 09/02/22 History Cholecalciferol [Vitamin D3 (25 50 mcg PO DAILY@1700 08/03/21 09/02/22 History Mcg = 1000 Iu)] Tiotropium 2.5 Mcg/Puff [Spiriva 2 puff INHALATION RT-DAILY@0800 08/03/21 09/02/22 History Respimat 2.5 Mcg] ALPRAZolam [Xanax] 0.25 mg PO BID PRN #4 tab 08/21/22 09/02/22 Rx Collagenase [Santyl Ointment] 1 applic TOPICAL DAILY each 08/21/22 09/02/22 Rx Promethazine [Phenergan] 12.5 mg PO Q6HR PRN tab 08/21/22 09/02/22 Rx Albuterol Nebulized [Ventolin 2.5 mg INHALATION RT-Q4H PRN 09/02/22 09/02/22 History Nebulized] Aspirin 81 mg PO DAILY@1200 09/02/22 09/02/22 History Atorvastatin [Lipitor] 80 mg PO HS@2100 09/02/22 09/02/22 History Cefepime [Maxipime] 2 gm IVPB TID@08,,09/02/22 09/02/22 History Diltiazem Oral [Cardizem*] 30 mg PO TID@06,14,09/02/22 09/02/22 History Ensure Enlive 120 - 237 ml PO TID@10,14,09/02/22 09/02/22 History Furosemide [Lasix] 20 mg PO BID@0800,1700 09/02/22 09/02/22 History Gabapentin [Neurontin] 400 mg PO TID@0800,1400,2200 09/02/22 09/02/22 History HYDROcodone/APAP 10-325MG [[place] 1 tab PO Q4H PRN 09/02/22 09/02/22 History 10-325] Magnesium Hydroxide [Milk of 7,200 ml PO Q48H PRN 09/02/22 09/02/22 History Magnesia Concentrate] Metoprolol Tartrate [Lopressor] 25 mg PO BID@0800,1700 09/02/22 09/02/22 History Na Phos,M-B/Na Phos,Di-Ba [Fleet 133 ml RECTAL DAILY PRN 09/02/22 09/02/22 History Adult] Pantoprazole [Protonix] 40 mg PO BID@0800,1700 09/02/22 09/02/22 History Potassium Chloride ER [K-Dur 20] 20 meq PO DAILY@0800 09/02/22 09/02/22 History Rivaroxaban [Xarelto] 2.5 mg PO BID@0800,1700 09/02/22 09/02/22 History Sennosides/Docusate Sodium [Senna 2 cap PO HS@2100 09/02/22 09/02/22 History Plus 8.6-50 mg Softgel] bisacodyL [Dulcolax] 10 mg RECTAL DAILY PRN 09/02/22 09/02/22 History guaiFENesin-DM 600/30MG [Mucinex 2 tab PO BID@0800,2100 09/02/22 09/02/22 History Dm] Allergies Allergy/AdvReac Type Severity Reaction Status Date / Time banana Allergy Abdominal Verified 09/02/22 18:37 Pain budesonide [From Pulmicort] Allergy Dyspnea Verified 09/02/22 18:37 Iodinated Contrast Media Allergy Anaphylaxis Verified 09/02/22 18:37 [Iodinated Contrast Media - IV Dye] penicillin G Allergy Rash/Hives Verified 09/02/22 18:37 codeine AdvReac Nausea & Verified 09/02/22 18:37 Vomiting levofloxacin AdvReac joint pain Verified 09/02/22 18:37 verapamil AdvReac HEADACHE Verified 09/02/22 18:37 Physical Exam Vitals: Vital Signs Temp Pulse Pulse Pulse Resp BP Pulse Ox 09/04/22 09:04 78 09/04/22 08:46 76 92 L 09/04/22 07:12 98.1 F 73 16 122/70 97 09/04/22 01:21 98.2 F 71 14 119/68 96 09/03/22 20:31 77 18 09/03/22 20:20 71 18 09/03/22 19:14 97.9 F 67 14 106/63 99 09/03/22 17:31 69 120/50 09/03/22 15:23 72 09/03/22 15:08 76 Intake and Output 09/03/22 09/04/22 09/04/22 22:59 06:59 14:59 Intake Total 350 Output Total 300 375 Balance 50 -375 Intake: Intake, IV Titration 350 Amount Azithromycin 500 mg In 250 Sodium Chloride 0.9% 250 ml @ 250 mls/hr IVPB DAILY@1600 [facility] Rx#: [id number] Cefepime 2 gm In Sodium 100 Chloride 0.9% 100 ml @ 25 mls/hr IVPB Q8HR [facility] Rx# :[id number] Output: Urine 300 375 Other: Voiding Method Indwelling Catheter Indwelling Catheter GENERAL DESCRIPTION: Elderly female lying in bed, no distress. No tachypnea or accessory muscle of respiration use. HEENT: Shows Pallor , no scleral icterus. Oral mucous membrane is dry. No pharyngeal erythema or thrush NECK: Trachea central, no thyromegaly. LUNGS: Unlabored breathing. Coarse breath sounds bilaterally with occasional wheeze HEART: S1, S2, regular rate and rhythm. No loud murmur ABDOMEN: Soft, no tenderness , guarding or rigidity, no organomegaly EXTREMITIES: Left medial thigh wound is almost healed with no redness or drainage left lower leg wound with the slough tissue some surrounding swelling no significant redness or foul-smelling drainage SKIN: No rash, no masses palpable. NEUROLOGICAL: The patient is awake, alert, oriented x3, mood and affect normal. Results CBC & Chem 7: 09/06/22 06:55 09/06/22 06:55 Labs: Abnormal Lab Results - Last 24 Hours (Table) 09/04/22 09/04/22 09/04/22 Range/Units 04:25 04:25 04:25 WBC 11.79 H (4.50-10.00) X 10*3/uL RBC 2.68 L (4.10-5.20) X 10*6/uL Hgb 7.9 L (12.0-15.0) g/dL Hct 28.3 L (37.2-46.3) % MCV 105.6 H (80.0-97.0) fL MCHC 27.9 L (32.0-37.0) g/dL RDW 17.9 H (11.5-14.5) % Plt Count 123 L (140-440) X 10*3/uL Immature Gran # 0.05 H (0.00-0.04) X 10*3/uL Neutrophils # 10.85 H (1.80-7.70) X 10*3/uL Lymphocytes # 0.40 L (0.90-5.00) X 10*3/uL Eosinophils # 0 L (0.04-0.35) X 10*3/uL Sodium 146 H (135-145) mmol/L Carbon Dioxide 43.5 H* (20.0-27.5) mmol/L Anion Gap 3.50 L (10.00-18.00) mmol/L Creatinine 0.4 L (0.6-1.5) mg/dL BUN/Creatinine Ratio 56.50 H (12.00-20.00) Ratio C-Reactive Protein 21.80 H (0.00-0.80) mg/dL Procalcitonin 0.26 H (0.02-0.09) ng/mL Assessment and Plan (1) Pneumonia Current Visit: Yes Status: Acute Code(s): J18.9 - PNEUMONIA, UNSPECIFIED ORG ANISM SNOMED Code(s): 715325331 (2) Non-pressure chronic ulcer of left calf with fat layer exposed Current Visit: No Status: Acute Code(s): L97.222 - NON-PRESSURE CHRONIC ULCER OF LEFT CALF W FAT LAYER EXPOSED SNOMED Code(s): 02308013116639055 Plan: 1patient presented to hospital with increasing shortness of breath could be related to her COPD exacerbation concerning for possible tracheobronchitis versus worsening pneumonia in this patient who is already getting cefepime at the longterm for her previous bacteremia and the patient seem to have shown clinical improvement with addition of Solu-Medrol sputum culture has been requested those will be followed. 2patient left groin wound is almost healed and no evidence of any cellulitis. 3left lower extremity wound did show slough tissue but no significant s urrounding redness will benefit from the santyl and possible surgical debridement 4continue with cefepime 2 g every 8 hours while waiting for repeat sputum culture to finalize We will follow on clinical condition and cultures to further adjust medication if needed Thank you for this consultation we will follow the patient along with you Time with Patient: Greater than 30
[2022-09-04] MEDS: SENNOSIDES-DOCUSATE SODIUM 1 EACH TAB PO SCH (21:19)
[2022-09-04] MEDS: ATORVASTATIN 80 MG TAB PO SCH (21:19)
--- NOTE | 2022-09-04 23:13 | PN ---
PROGRESS NOTE DATE OF SERVICE: 09/04/2022 SUBJECTIVE: This is a 67-year-old woman, who was admitted with bibasilar pneumonia and renal injury is being closely monitored. No chest pain. No palpitation. The patient also has significant ulceration of the left leg also. Healthcare associated pneumonia is being suspected. PAST MEDICAL HISTORY: Reviewed. REVIEW OF SYSTEMS: A 14-point review is negative except as mentioned earlier. CURRENT MEDICATIONS: Reviewed, include Ventolin. Doses and rest of medication noted. PHYSICAL EXAMINATION: VITAL SIGNS: Pulse is 71, blood pressure 118/60, respirations 15. HEENT: Conjunctivae normal. NECK: No JVD. CARDIOVASCULAR: S1, S2 muffled. RESPIRATIONS: Breath sounds diminished at the bases. Bilateral scattered rhonchi and crackles. ABDOMEN: Soft, nontender. LEGS: Significant erythema, exudation, and ulceration on the left leg present. LABORATORY DATA: Reviewed. ASSESSMENT: 1. Acute bibasilar pneumonia. 2. Left leg severe cellulitis, ulceration with failure of outpatient treatment. 3. Chronic obstructive pulmonary disease acute exacerbation. 4. Chronic wounds. 5. Sjogren syndrome. 6. Multiple medical issues. RECOMMENDATION AND DISCUSSION: This is a 67-year-old woman, who presented with multiple complex medical issues. We will monitor the patient closely. Continue with antibiotics, local wound care. Infectious disease evaluation. Pulmonary consultation. Wound Care management. The patient is started on cefepime. Follow the cultures. Prognosis is extremely guarded because of multiple complex medical conditions. Further recommendations to follow. The patient is also on Xarelto. See orders for further details. Discussed with the family at length. MMODL / IJN: [id number] /
[2022-09-05] MEDS: methylPREDNISolone SOD SUCCI 125 MG/2 ML VIAL IV SCH ×3 (05:43→18:13)
[2022-09-05] MEDS: DILTIAZEM ORAL 30 MG TAB PO SCH ×3 (05:43→21:20)
[2022-09-05] MEDS: IPRATROPIUM 0.5 MG/2.5 ML NEBU INHALATION SCH ×4 (09:04→22:15)
[2022-09-05] MEDS: ALBUTEROL NEBULIZED 2.5 MG/3 ML INHALATION SCH ×4 (09:04→22:15)
[2022-09-05] MEDS: ADVAIR INHALATION SCH ×2 (09:05→22:14)
[2022-09-05] MEDS: HYDROcodone/APAP 10-325MG 1 EACH TAB PO PRN (09:11)
--- NOTE | 2022-09-05 10:57 | P.PN ---
Subjective Progress Note Date: 09/05/22 Principal diagnosis: Left lower extremity wounds Patient was seen and examined today as a follow-up. Patient is admitted for pneumonia with COPD exacerbation. Left lower extremity without any significant pain. She has good sensorimotor. Wound care following. She is afebrile. States she was able to sleep well last night. Infectious disease is following for pneumonia. Objective - Vital Signs Vital signs: Vital Signs Temp 98.3 F 09/05/22 00:44 Pulse 67 09/05/22 00:44 Resp 14 09/05/22 00:44 BP 114/68 09/05/22 00:44 Pulse Ox 94 L 09/05/22 00:44 FiO2 Intake & Output 09/04/22 09/05/22 09/05/22 18:59 06:59 18:59 Output Total 400 300 Balance -400 -300 Weight 53.5 kg Output: Urine 400 300 Other: Voiding Method Indwelling Catheter Indwelling Catheter - Exam General appearance: The patient is alert, oriented, appears in no acute distress. HET: Head is normocephalic and atraumatic. Pupils are equal and reactive. Neck: Supple without lymphadenopathy. Trachea midline. No audible carotid bruit. Extremities: Left lower extremity swelling, with palpable bypass graft, left foot warm to the touch with good capillary refill. Sensorimotor intact. Left groin incision well approximated without any drainage. Palpable firm area just around the incision, nontender. Left upper medial thigh surgical wound with small amount of serous drainage, left medial aspect of the calf with open wound with fat layer exposed, large amount of serous drainage with eschar and slough tissue. Left great toe and left posterior Achilles with pressure ulcers with dry necrotic tissue. Neurological: No focal deficits. Strength and sensation are grossly intact. - Labs CBC & Chem 7: 09/04/22 04:25 09/04/22 04:25 Labs: Abnormal Lab Results - Last 24 Hours (Table) 09/04/22 09/04/22 09/04/22 Range/Units 04:25 04:25 04:25 WBC 11.79 H (4.50-10.00) X 10*3/uL RBC 2.68 L (4.10-5.20) X 10*6/uL Hgb 7.9 L (12.0-15.0) g/dL Hct 28.3 L (37.2-46.3) % MCV 105.6 H (80.0-97.0) fL MCHC 27.9 L (32.0-37.0) g/dL RDW 17.9 H (11.5-14.5) % Plt Count 123 L (140-440) X 10*3/uL Immature Gran # 0.05 H (0.00-0.04) X 10*3/uL Neutrophils # 10.85 H (1.80-7.70) X 10*3/uL Lymphocytes # 0.40 L (0.90-5.00) X 10*3/uL Eosinophils # 0 L (0.04-0.35) X 10*3/uL Sodium 146 H (135-145) mmol/L Carbon Dioxide 43.5 H* (20.0-27.5) mmol/L Anion Gap 3.50 L (10.00-18.00) mmol/L Creatinine 0.4 L (0.6-1.5) mg/dL BUN/Creatinine Ratio 56.50 H (12.00-20.00) Ratio C-Reactive Protein 21.80 H (0.00-0.80) mg/dL Procalcitonin 0.26 H (0.02-0.09) ng/mL Assessment and Plan Assessment: 1. Pneumonia 2. Acute COPD exacerbation secondary to above 3. Left lower extremity open surgical wounds 4. Left great toe and left Achilles region pressure ulcers, dry gangrene 5. 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 Left lower extremity peripheral arterial disease status post revascularization with bypass graft Plan: 1. Continue medical management 2. Continue local wound care per recommendations from wound clinic 3. No plans on surgical debridement or surgical intervention The impression and plan of care has been dictated as directed. I performed a history and examination of this patient, discussed the same with the dictator. I agree with the dictator's note ,documented as a scribe. Any a dditional findings or plans will be noted.
[2022-09-05] MEDS: GABAPENTIN 400 MG CAP PO SCH ×3 (10:59→21:20)
[2022-09-05] MEDS: FUROSEMIDE 20 MG TAB PO SCH ×2 (10:59→18:13)
[2022-09-05] MEDS: METOPROLOL TARTRATE 25 MG TAB PO SCH ×2 (10:59→18:13)
[2022-09-05] MEDS: buPROPion SR 100 MG TABLET.ER PO SCH (10:59)
[2022-09-05] MEDS: POTASSIUM CHLORIDE ER 20 MEQ TAB.ER PO SCH (10:59)
[2022-09-05] MEDS: CEFEPIME 2 GM in SODIUM CHLORIDE 0.9% 100 ML IVPB SCH ×2 (11:00→16:55)
[2022-09-05] MEDS: RIVAROXABAN 2.5 MG TABLET PO SCH ×2 (11:00→18:13)
[2022-09-05] MEDS: LETROZOLE 2.5 MG TAB PO SCH (11:00)
[2022-09-05] MEDS: guaiFENesin-DM 600/30MG 1 EACH TAB.ER.12H PO SCH ×2 (11:00→21:20)
[2022-09-05 11:06] LABS: Basophils # (A) 0.02 X 10*3/uL (0.00-0.10); Basophils % (A) 0.2 %; Eosinophils # (A) 0 X 10*3/uL (0.04-0.35); Eosinophils % (A) 0 %; Immature Grans, Automated 0.7 %; Lymphocytes # (A) 0.22 X 10*3/uL (0.90-5.00); Lymphocytes % (A) 2.3 %; MCH 29.7 pg (27.0-32.0); MCHC 28.6 g/dL (32.0-37.0); MCV 104.1 fL (80.0-97.0); Mean Platelet Volume 10.9 fL (9.5-12.2); Monocytes # (A) 0.29 X 10*3/uL (0.20-1.00); NRBC Per 100 WBC 0.2 /100 WBCS (0.0-0.0); Neutrophils # (A) 8.93 X 10*3/uL (1.80-7.70); Neutrophils % (A) 93.8 %; Platelet Count 134 X 10*3/uL (140-440); RBC 2.69 X 10*6/uL (4.10-5.20); RDW 17.6 % (11.5-14.5); WBC 9.53 X 10*3/uL (4.50-10.00)
[2022-09-05] MEDS: HYDROXYCHLOROQUINE SULFATE 200 MG TAB PO SCH ×2 (11:07→18:13)
[2022-09-05] MEDS: PANTOPRAZOLE 40 MG TABLET PO SCH ×2 (11:07→18:13)
[2022-09-05 11:21] LABS: Anion Gap 6.7 mmol/L (10.00-18.00); BUN/Creat Ratio 55.19 Ratio (12.00-20.00); Blood Urea Nitrogen 23.4 mg/dL (9.0-27.0); Calcium 9.4 mg/dL (8.7-10.3); Potassium 3.6 mmol/L (3.5-5.5)
[2022-09-05 11:33] LABS: African American GFR (CKD) 121.7 (60.0-200.0)
--- NOTE | 2022-09-05 12:30 | P.PN ---
Subjective Progress Note Date: 09/05/22 I'm seeing this patient today 09/03/2022 in new consultation on the general medical floor for pneumonia. This is a 67-year-old female patient with an extenisve past medical history of advanced COPD, previous Imogene valve insertion, maintained on a combination of Advair, albuterol, and Spiriva outpatient basis, she is oxygen dependent at home on 2 L/m nasal cannula at baseline, iatrogenic pneumothorax, pneumonia, sjogrens, atrial fibrillation anticoagulated Xarelto, and peripheral vascular disease. Patient has had recent left femoral endarterectomy and left femoral to tibial bypass graft complicated by pseudoaneurysm post repair on 08/15/2022. During the stay, the patient ended up developing pneumonia sepsis and spent some time in the intensive care unit. Identified organism at that time was Pseudomonas aeruginosa. Patient did have a prolonged stay, and required rehab at [facility] afterwards. While at [facility], patient was experiencing severe shortness of breath, congested nonproductive co ugh, fevers and chills. Denies chest pain, hemoptysis. Patient failed outpatient treatment for pneumonia, and was transferred to [facility] yesterday evening. Patient is currently resting in bed, on 3 L nasal cannula, in no acute distress. Chest x-ray on arrival showed left greater than right bibasilar acute infiltrates, some stable cardiomegaly, and chronic emphysematous changes. CBC on arrival shows leukocytosis with a WBC count of 15.1, hemoglobin 9.6, hematocrit 30.7, platelets 138,000. BMP on arrival shows sodium 140, potassium 4, chloride 95, serum CO2 chronically elevated at 41, BP 127, creatinine 0.54, glucose 116. Troponin was mildly elevated at 0.056. No obvious ischemic changes on ECG. ProBNP 2340. Patient is receiving home dose of Lasix 20 mg twice a day. Patient was negative for COVID-19 on arrival. A pro calcitonin level is pending. Patient is covered with a combination of azithromycin and cefepime. Afebrile for now. Patient does have a chronic left leg wound, in which she normally follows up with wound care. Vital signs are stable. The patient is seen today 09/05/2022 in follow-up on the regular medical floor. She is currently sitting up in bed. Awake and alert in no acute distress. Maintaining O2 saturations in the 90s on 2 L/m per nasal cannula. Afebrile. Hemodynamically stable. Ultrasound of the chest did not reveal any free flowing fluid for thoracentesis. There was noted lung tissue within the fluid. White count 9.5. Hemoglobin 8.0. Platelets 134. Sodium 150. Potassium 3.6. Bicarb 41. BUN 23. Creatinine 0.4. Glucose 145. Pro calcitonin 0.26. She is continued on bronchodilators, IV Solu-Medrol, antibiotics in the form of cefepime and azithromycin. Anticoagulated with Xarelto. Objective - Vital Signs Vital signs: Vital Signs Temp 98.3 F 09/05/22 07:40 Pulse 80 09/05/22 12:13 Resp 14 09/05/22 07:40 BP 125/76 09/05/22 07:40 Pulse Ox 92 L 09/05/22 09:05 FiO2 Intake & Output 09/04/22 09/05/22 09/05/22 18:59 06:59 18:59 Output Total 400 300 Balance -400 -300 Weight 53.5 kg Output: Urine 400 300 Other: Voiding Method Indwelling Catheter Indwelling Catheter Indwelling Catheter # Bowel Movements 1 - Exam GENERAL EXAM: Alert, 67-year-old female, on 3 L nasal cannula. No conversational dyspnea or accessory muscle use, in no apparent distress. HEAD: Normocephalic and atraumatic EYES: Normal reaction of pupils, equal size. NOSE: Clear with pink turbinates. THROAT: No erythema or exudates. NECK: No masses, no JVD. CHEST: No chest wall deformity. LUNGS: Equal air entry with diffuse bilateral rhonchi and expiratory wheezes throughout. CVS: S1 and S2 normal with no audible murmur, regular rhythm. No extra heart sounds ABDOMEN: No hepatosplenomegaly, active bowel sounds, no guarding or rigidity. SPINE: No scoliosis or deformity SKIN: No rashes. Left femoral open wound healing by secondary intention. There is also a left anterior lower extremity wound with purulent drainage. CENTRAL NERVOUS SYSTEM: No focal deficits, tone is normal in all 4 extremities. EXTREMITIES: There is no peripheral edema, clubbing, or cyanosis. Peripheral pulses are faint but palpable. - Labs CBC & Chem 7: 09/05/22 06:35 09/05/22 06:35 Labs: Abnormal Lab Results - Last 24 Hours (Table) 09/05/22 09/05/22 Range/Units 06:35 06:35 RBC 2.69 L (4.10-5.20) X 10*6/uL Hgb 8.0 L (12.0-15.0) g/dL Hct 28.0 L (37.2-46.3) % MCV 104.1 H (80.0-97.0) fL MCHC 28.6 L (32.0-37.0) g/dL RDW 17.6 H (11.5-14.5) % Plt Count 134 L (140-440) X 10*3/uL Absolute Nucleated RBC 0.02 H (0.00-0.00) X 10*3/uL Immature Gran # 0.07 H (0.00-0.04) X 10*3/uL Neutrophils # 8.93 H (1.80-7.70) X 10*3/uL Lymphocytes # 0.22 L (0.90-5.00) X 10*3/uL Eosinophils # 0 L (0.04-0.35) X 10*3/uL NRBC/100 WBC Diff 0.2 H (0.0-0.0) /100 WBCS Sodium 150 H (135-145) mmol/L Carbon Dioxide 41.0 H* (20.0-27.5) mmol/L Anion Gap 6.70 L (10.00-18.00) mmol/L Creatinine 0.4 L (0.6-1.5) mg/dL BUN/Creatinine Ratio 55.19 H (12.00-20.00) Ratio Glucose 145 H (70-110) mg/dL Assessment and Plan Assessment: Healthcare associated pneumonia, failing outpatient treatment at [facility]. Patient has had recent left lower lobe pneumonia with Pseudomonas aeruginosa being the isolated organism. Acute COPD exacerbation secondary to above. Normally maintained with a com bination of Spiriva, Advair, and albuterol inhalers. Acute on chronic hypoxemic and hypercapnic respiratory failure. Normally maintained on 2 L per minute nasal cannula home O2. History of Imogene valve placement for severe end-stage COPD. Elevated troponins likely related to demand ischemia due to pneumonia and hypoxia. No chest pain or obvious ischemic changes seen on ECG. Chronic wounds Sjogren's, normally maintained on Plaquenil Chronic anemia. Hemoglobin currently 8.0 g/dL Chronic atrial fibrillation anticoagulated on Xarelto Peripheral vascular disease Hyperlipidemia Hypertension GERD History of left breast cancer status post radiation and lumpectomy Ex-smoker of approximately 50 pack years Plan: The patient was seen and evaluated Medications and labs reviewed Change IV fluids to D5W at 50 MLS per hour Allow liberal water intake Continue current medications We did speak with the patient regarding CODE STATUS She wishes to discuss with her and son Prognosis is guarded We will continue to follow I have personally seen and examined the patient, performed the documentation and the assessment and plan as written. Number of minutes spent on the visit: 10.
[2022-09-05] MEDS: ASPIRIN 81 MG PO SCH (13:47)
[2022-09-05] MEDS: CALCIUM CARBONATE 500 MG CHEWABLE PO SCH (13:47)
[2022-09-05] MEDS: DEXTROSE 5% IN WATER 1,000 ML IV SCH (13:48)
[2022-09-05] MEDS: AZITHROMYCIN 500 MG in SODIUM CHLORIDE 0.9% 250 ML IVPB SCH (15:46)
[2022-09-05] MEDS: COLLAGENASE 250 UNIT/GM OINTMENT 30 GM TUBE TOPICAL SCH (15:56)
--- NOTE | 2022-09-05 17:31 | P.PN ---
Subjective Progress Note Date: 09/05/22 Principal diagnosis: Pneumonia and left leg wound Patient is a 67-year-old female who was recently admitted at this facility and treated for Pseudomonas bacteremia related to combination of pneumonia and left groin infected wound patient did clear her bacteremia at the patient also have extensive surgery and debridement of the left groin wound patient was discharged to the group home on cefepime 2 g every 8 hours, presented to the hospital with increasing shortness of breath. On today's evaluation, that is 09/05/2022, the patient denies having any fever or chills, still complaining of increasing shortness of breath however currently is down to 2 L nasal cannula oxygen, patient denies having any chest pain continued to have a cough with sputum production some nausea but no vomiting no abdominal pain or any worsening pain to the left lower extremity Objective - Vital Signs Vital signs: Vital Signs Temp 98 F 09/05/22 13:32 Pulse 65 09/05/22 13:32 Resp 20 09/05/22 13:32 BP 96/63 09/05/22 13:32 Pulse Ox 92 L 09/05/22 09:05 FiO2 Intake & Output 09/04/22 09/05/22 09/05/22 18:59 06:59 18:59 Output Total 400 300 Balance -400 -300 Weight 53.5 kg Output: Urine 400 300 Other: Voiding Method Indwelling Catheter Indwelling Catheter Indwelling Catheter # Bowel Movements 1 - Exam GENERAL DESCRIPTION: An elderly female lying in bed in no distress RESPIRATORY SYSTEM: Unlabored breathing , coarse pulses bilaterally HEART: S1 S2 regular rate and rhythm , ABDOMEN: Soft , no tenderness EXTREMITIES: Left leg wound with slough tissue no significant redness or drainage - Labs CBC & Chem 7: 09/05/22 06:35 09/05/22 06:35 Labs: Abnormal Lab Results - Last 24 Hours (Table) 09/05/22 09/05/22 Range/Units 06:35 06:35 RBC 2.69 L (4.10-5.20) X 10*6/uL Hgb 8.0 L (12.0-15.0) g/dL Hct 28.0 L (37.2-46.3) % MCV 104.1 H (80.0-97.0) fL MCHC 28.6 L (32.0-37.0) g/dL RDW 17.6 H (11.5-14.5) % Plt Count 134 L (140-440) X 10*3/uL Absolute Nucleated RBC 0.02 H (0.00-0.00) X 10*3/uL Immature Gran # 0.07 H (0.00-0.04) X 10*3/uL Neutrophils # 8.93 H (1.80-7.70) X 10*3/uL Lymphocytes # 0.22 L (0.90-5.00) X 10*3/uL Eosinophils # 0 L (0.04-0.35) X 10*3/uL NRBC/100 WBC Diff 0.2 H (0.0-0.0) /100 WBCS Sodium 150 H (135-145) mmol/L Carbon Dioxide 41.0 H* (20.0-27.5) mmol/L Anion Gap 6.70 L (10.00-18.00) mmol/L Creatinine 0.4 L (0.6-1.5) mg/dL BUN/Creatinine Ratio 55.19 H (12.00-20.00) Ratio Glucose 145 H (70-110) mg/dL Assessment and Plan (1) Pneumonia Current Visit: Yes Status: Acute Code(s): J18.9 - PNEUMONIA, UNSPECIFIED ORGANISM SNOMED Code(s): 490135491 Plan: 1patient presented to hospital with increasing shortness of breath could be related to her COPD exacerbation concerning for possible tracheobronchitis versus worsening pneumonia in this patient who is already getting cefepime at the group home for her previous bacteremia and the patient seem to have shown clinical improvement with addition of Solu-Medrol sputum culture has been requested those will be followed. 2patient left groin wound is almost healed and no evidence of any cellulitis. 3left lower extremity wound did show slough tissue but no significant surroun ding redness will benefit from the santyl followed by moist dressing changes daily 4patient to continue with cefepime 2 g every 8 hours while waiting for repeat sputum culture to finalize Time with Patient: Less than 30
[2022-09-05] MEDS: CHOLECALCIFEROL 25 MCG (1000 IU) TABLET PO SCH (18:13)
[2022-09-05] MEDS: ATORVASTATIN 80 MG TAB PO SCH (21:20)
[2022-09-05] MEDS: SENNOSIDES-DOCUSATE SODIUM 1 EACH TAB PO SCH (21:20)
--- NOTE | 2022-09-05 22:03 | PN ---
PROGRESS NOTE DATE OF SERVICE: 09/05/2022 SUBJECTIVE: This is a 67-year-old woman who was admitted with acute bibasilar pneumonia, also had a significant left leg cellulitis and wound also. Final cultures are pending. The patient is on IV antibiotics. The patient also had multiple vascular issues as well. PHYSICAL EXAMINATION: VITAL SIGNS: Pulse is 69, blood pressure ntd, respirations 14. CHEST: Clear to auscultation. CARDIOVASCULAR: S1, S2. ABDOMEN: Soft. EXTREMITIES: Left leg wound present. LABORATORY DATA: Hemoglobin 8, sodium is 150. ASSESSMENT: 1. Acute bibasilar pneumonia. 2. Left leg severe cellulitis, postoperative wound ulceration, failure of outpatient treatment. 3. Chronic obstructive pulmonary disease acute exacerbation. 4. Chronic wounds. 5. Sjogren syndrome. 6. Multiple medical issues. RECOMMENDATIONS: Recommended to continue current management, continue symptomatic treatment. Otherwise at this time, I would recommend D5 water and monitor lytes closely, otherwise continue to monitor. Prognosis guarded. Further recommendations to follow. Continue the steroids. MMMARELYL / SANDRAN: [id number] / MTDD
[2022-09-06] MEDS: CEFEPIME 2 GM in SODIUM CHLORIDE 0.9% 100 ML IVPB SCH ×4 (00:13→23:41)
[2022-09-06] MEDS: methylPREDNISolone SOD SUCCI 125 MG/2 ML VIAL IV SCH ×5 (00:13→23:41)
[2022-09-06] MEDS: DILTIAZEM ORAL 30 MG TAB PO SCH ×3 (06:10→21:27)
[2022-09-06] MEDS: IPRATROPIUM 0.5 MG/2.5 ML NEBU INHALATION SCH ×4 (07:48→20:14)
[2022-09-06] MEDS: ALBUTEROL NEBULIZED 2.5 MG/3 ML INHALATION SCH ×4 (07:49→20:14)
[2022-09-06 07:50] LABS: African American GFR (CKD) >90 (>60 ml/min/1.73 sqM); Blood Urea Nitrogen 30 mg/dL (7-17); Chloride 98 mmol/L (98-107); Glucose 164 mg/dL (74-99); Non-African American GFR(CKD) >90 (>60 ml/min/1.73 sqM); Sodium 142 mmol/L (137-145)
[2022-09-06 07:52] LABS: Anisocytosis Slight; Basophils % (A) 0 %; Eosinophils % (A) 0 %; HCT 29.2 % (34.0-46.0); HGB 8.9 gm/dL (11.4-16.0); Hypochromasia Marked; Lymphocytes # (A) 0.2 k/uL (1.0-4.8); Lymphocytes % (A) 2 %; MCH 30.2 pg (25.0-35.0); MCHC 30.4 g/dL (31.0-37.0); MCV 99.3 fL (80.0-100.0); Macrocytosis Slight; Mean Platelet Volume 8.5; Monocytes # (A) 0.4 k/uL (0-1.0); Monocytes % (A) 3 %; Neutrophils % (A) 93 %; Platelet Count 177 k/uL (150-450); Poikilocytosis Moderate; RBC 2.94 m/uL (3.80-5.40); RDW 16.8 % (11.5-15.5); WBC 10.7 k/uL (3.8-10.6)
[2022-09-06 08:01] LABS: Anion Gap 3 mmol/L
[2022-09-06 08:15] LABS: Carbon Dioxide 41 mmol/L (22-30)
--- NOTE | 2022-09-06 08:23 | XR ---
EXAMINATION TYPE: XR chest 1V portable DATE OF EXAM: 09/06/2022 COMPARISON: 09/04/2022 HISTORY: Shortness of breath TECHNIQUE: Single frontal view of the chest is obtained. FINDINGS: Stable right-sided PICC line. Background chronic emphysematous change with left greater th an right lower lung increased opacities. Cardiac silhouette size stable and mildly enlarged with athe rosclerotic change involving the aortic knob. Osseous structures are intact. Metallic stents are seen in the left hilum. There is diffuse osteopenia. Calcification along the right humeral head suggests calcific tendinosis. IMPRESSION: Bilateral consolidation and pleural effusion greater on the left superimposed on a backg round COPD is mildly progressed.
[2022-09-06] MEDS: buPROPion SR 100 MG TABLET.ER PO SCH (08:50)
[2022-09-06] MEDS: guaiFENesin-DM 600/30MG 1 EACH TAB.ER.12H PO SCH ×2 (08:50→21:27)
[2022-09-06] MEDS: FUROSEMIDE 20 MG TAB PO SCH ×2 (08:50→18:04)
[2022-09-06] MEDS: POTASSIUM CHLORIDE ER 20 MEQ TAB.ER PO SCH (08:51)
[2022-09-06] MEDS: METOPROLOL TARTRATE 25 MG TAB PO SCH ×2 (08:51→18:05)
[2022-09-06] MEDS: GABAPENTIN 400 MG CAP PO SCH ×3 (08:51→21:27)
[2022-09-06] MEDS: PANTOPRAZOLE 40 MG TABLET PO SCH ×2 (08:51→18:04)
[2022-09-06] MEDS: LETROZOLE 2.5 MG TAB PO SCH (08:53)
[2022-09-06] MEDS: HYDROXYCHLOROQUINE SULFATE 200 MG TAB PO SCH ×2 (08:53→18:06)
[2022-09-06] MEDS: RIVAROXABAN 2.5 MG TABLET PO SCH ×2 (08:53→18:05)
[2022-09-06] MEDS: DEXTROSE 5% IN WATER 1,000 ML IV SCH (08:54)
--- NOTE | 2022-09-06 11:32 | P.PN ---
Subjective Progress Note Date: 09/06/22 Principal diagnosis: Left lower extremity wounds Patient was seen and examined today as a follow-up. Patient is admitted for pneumonia with COPD exacerbation. Left lower extremity without any significant pain. She has good sensorimotor. Wound care following local wound care. She is afebrile. States she's not feeling well today, having significant shortness of breath. Incentive spirometer is at the bedside. Objective - Vital Signs Vital signs: Vital Signs Temp 97.5 F L 09/06/22 07:35 Pulse 64 09/06/22 08:01 Resp 18 09/06/22 07:35 BP 148/76 09/06/22 07:35 Pulse Ox 94 L 09/06/22 07:49 FiO2 Intake & Output 09/05/22 09/06/22 09/06/22 18:59 06:59 18:59 Intake Total 650 590 Balance 650 590 Intake: Intake, IV Titration 650 Amount Azithromycin 500 mg In 250 Sodium Chloride 0.9% 250 ml @ 250 mls/hr IVPB DAILY@1600 [facility] Rx#: [id number] Cefepime 2 gm In Sodium 200 Chloride 0.9% 100 ml @ 25 mls/hr IVPB Q8HR [facility] Rx# :[id number] Dextrose 5% in Water 1, 200 000 ml @ 50 mls/hr IV . Q20H [facility] Rx#:[id number] Oral 590 Other: Voiding Method Indwelling Catheter Indwelling Catheter Indwelling Catheter # Bowel Movements 1 - Exam General appearance: The patient is alert, oriented, appears in no acute d istress. HET: Head is normocephalic and atraumatic. Pupils are equal and reactive. Neck: Supple without lymphadenopathy. Trachea midline. No audible carotid bruit. Extremities: Left lower extremity swelling, with palpable bypass graft, left foot warm to the touch with good capillary refill. Sensorimotor intact. Left groin incision well approximated without any drainage. Palpable firm area just around the incision, nontender. Left upper medial thigh surgical wound with small amount of serous drainage, left medial aspect of the calf with open wound with fat layer exposed, large amount of serous drainage with eschar and slough tissue. Left great toe and left posterior Achilles with pressure ulcers with dry necrotic tissue. Neurological: No focal deficits. Strength and sensation are grossly intact. - Labs CBC & Chem 7: 09/06/22 06:55 09/06/22 06:55 Labs: Abnormal Lab Results - Last 24 Hours (Table) 09/05/22 09/05/22 09/06/22 Range/Units 06:35 06:35 06:55 WBC 10.7 H (3.8-10.6) k/uL RBC 2.69 L 2.94 L (4.10-5.20) X 10*6/uL Hgb 8.0 L 8.9 L (12.0-15.0) g/dL Hct 28.0 L 29.2 L (37.2-46.3) % MCV 104.1 H (80.0-97.0) fL MCHC 28.6 L 30.4 L (32.0-37.0) g/dL RDW 17.6 H 16.8 H (11.5-14.5) % Plt Count 134 L (140-440) X 10*3/uL Absolute Nucleated RBC 0.02 H (0.00-0.00) X 10*3/uL Immature Gran # 0.07 H (0.00-0.04) X 10*3/uL Neutrophils # 8.93 H 10.0 H (1.80-7.70) X 10*3/uL Lymphocytes # 0.22 L 0.2 L (0.90-5.00) X 10*3/uL Eosinophils # 0 L (0.04-0.35) X 10*3/uL NRBC/100 WBC Diff 0.2 H (0.0-0.0) /100 WBCS Sodium 150 H (135-145) mmol/L Carbon Dioxide 41.0 H* (20.0-27.5) mmol/L Anion Gap 6.70 L (10.00-18.00) mmol/L BUN (7-17) mg/dL Creatinine 0.4 L (0.6-1.5) mg/dL BUN/Creatinine Ratio 55.19 H (12.00-20.00) Ratio Glucose 145 H (70-110) mg/dL 09/06/22 Range/Units 06:55 WBC (3.8-10.6) k/uL RBC (4.10-5.20) X 10*6/uL Hgb (12.0-15.0) g/dL Hct (37.2-46.3) % MCV (80.0-97.0) fL MCHC (32.0-37.0) g/dL RDW (11.5-14.5) % Plt Count (140-440) X 10*3/uL Absolute Nucleated RBC (0.00-0.00) X 10*3/uL Immature Gran # (0.00-0.04) X 10*3/uL Neutrophils # (1.80-7.70) X 10*3/uL Lymphocytes # (0.90-5.00) X 10*3/uL Eosinophils # (0.04-0.35) X 10*3/uL NRBC/100 WBC Diff (0.0-0.0) /100 WBCS Sodium (135-145) mmol/L Carbon Dioxide 41 H* (20.0-27.5) mmol/L Anion Gap (10.00-18.00) mmol/L BUN 30 H (7-17) mg/dL Creatinine (0.6-1.5) mg/dL BUN/Creatinine Ratio (12.00-20.00) Ratio Glucose 164 H (70-110) mg/dL Microbiology - Last 24 Hours (Table) 09/05/22 15:50 Gram Stain - Preliminary Leg - Left Wound Culture - Preliminary 09/05/22 10:09 Gram Stain - Preliminary Sputum Sputum Culture - Preliminary Assessment and Plan Assessment: 1. Pneumonia 2. Acute COPD exacerbation secondary to above 3. Left lower extremity open surgical wounds 4. Left great toe and left Achilles region pressure ulcers, dry gangrene 5. 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 Left lower extremity peripheral arterial disease status post revascularizat ion with bypass graft Plan: 1. Continue medical management 2. Continue local wound care per recommendations from wound clinic 3. No plans on surgical debridement or surgical intervention at this time Thank you for this consultation, we will sign off at this time. Patient has a follow-up appointment with Dr. Garcia on 09/12/2022 and was directed to keep this appointment. The impression and plan of care has been dictated as directed. I performed a history and examination of this patient, discussed the same with the dictator. I agree with the dictator's note ,documented as a scribe. Any additional findings or plans will be noted.
[2022-09-06] MEDS: ADVAIR INHALATION SCH ×2 (11:41→20:14)
--- NOTE | 2022-09-06 11:54 | PN ---
PROGRESS NOTE DATE OF SERVICE: 09/06/2022 SUBJECTIVE: This is a 67-year-old woman, who was admitted with bibasilar pneumonia, also had significant cellulitis and wound on the left leg. The patient has significant peripheral arterial issues, also complains of weakness. Most recent chest x-ray revealed persistence of bilateral pneumonia, left more than the right. OBJECTIVE: VITAL SIGNS: Pulse is 62, blood pressure 140/87, respirations 18. CHEST: A few scattered rhonchi. ABDOMEN: Soft. LEGS: Left leg ulcer. NERVOUS SYSTEM: Diffusely weak. LABORATORY DATA: Reviewed. ASSESSMENT: 1. Acute bibasilar pneumonia, left more than the right with pleural effusions. 2. Left leg severe cellulitis with possibility of wound and ulceration with failure of outpatient treatment. 3. Chronic obstructive pulmonary disease acute exacerbation. 4. Gait dysfunction. 5. Chronic wounds. 6. Sjogren's syndrome. 7. Multiple medical issues. RECOMMENDATIONS AND DISCUSSION: Recommend to continue current management. Continue with antibiotics. Closely follow with Infectious Disease and Pulmonary. Prognosis guarded. Further recommendations to follow. Chest CT was done. We will review the chest CT also. MMODL / IJN: [id number] /
--- NOTE | 2022-09-06 12:31 | P.PN ---
Subjective Progress Note Date: 09/06/22 I'm seeing this patient today 09/03/2022 in new consultation on the general medical floor for pneumonia. This is a 67-year-old female patient with an extenisve past medical history of advanced COPD, previous Jefferson valve insertion, maintained on a combination of Advair, albuterol, and Spiriva outpatient basis, she is oxygen dependent at home on 2 L/m nasal cannula at baseline, iatrogenic pneumothorax, pneumonia, sjogrens, atrial fibrillation anticoagulated Xarelto, and peripheral vascular disease. Patient has had recent left femoral endarterectomy and left femoral to tibial bypass graft complicated by pseudoaneurysm post repair on 08/15/2022. During the stay, the patient ended up developing pneumonia sepsis and spent some time in the intensive care unit. Identified organism at that time was Pseudomonas aeruginosa. Patient did have a prolonged stay, and required rehab at [facility] afterwards. While at [facility], patient was experiencing severe shortness of breath, congested nonproductive co ugh, fevers and chills. Denies chest pain, hemoptysis. Patient failed outpatient treatment for pneumonia, and was transferred to [facility] yesterday evening. Patient is currently resting in bed, on 3 L nasal cannula, in no acute distress. Chest x-ray on arrival showed left greater than right bibasilar acute infiltrates, some stable cardiomegaly, and chronic emphysematous changes. CBC on arrival shows leukocytosis with a WBC count of 15.1, hemoglobin 9.6, hematocrit 30.7, platelets 138,000. BMP on arrival shows sodium 140, potassium 4, chloride 95, serum CO2 chronically elevated at 41, BP 127, creatinine 0.54, glucose 116. Troponin was mildly elevated at 0.056. No obvious ischemic changes on ECG. ProBNP 2340. Patient is receiving home dose of Lasix 20 mg twice a day. Patient was negative for COVID-19 on arrival. A pro calcitonin level is pending. Patient is covered with a combination of azithromycin and cefepime. Afebrile for now. Patient does have a chronic left leg wound, in which she normally follows up with wound care. Vital signs are stable. The patient is seen today 09/05/2022 in follow-up on the regular medical floor. She is currently sitting up in bed. Awake and alert in no acute distress. Maintaining O2 saturations in the 90s on 2 L/m per nasal cannula. Afebrile. Hemodynamically stable. Ultrasound of the chest did not reveal any free flowing fluid for thoracentesis. There was noted lung tissue within the fluid. White count 9.5. Hemoglobin 8.0. Platelets 134. Sodium 150. Potassium 3.6. Bicarb 41. BUN 23. Creatinine 0.4. Glucose 145. Pro calcitonin 0.26. She is continued on bronchodilators, IV Solu-Medrol, antibiotics in the form of cefepime and azithromycin. Anticoagulated with Xarelto. The patient is seen today 09/06/2022 in follow-up on the regular medical floor. She is resting comfortably in bed. Awake and alert in no acute distress. Doing a bit better today compared to yesterday. Less shortness of breath. Less cough and congestion. Maintaining O2 saturations in the 90s on 2 L/m per nasal cannula. She's been afebrile. Hemodynamically stable. Chest x-ray continues to revealed bilateral consolidation and pleural effusions greater on the left superimposed on COPD. Right-sided PICC line remains in place. Sputum Gram stain with preliminary gram-negative bacilli, Candidus albicans. Left leg wound culture pending. White count 10.7. Hemoglobin 8.9. Platelets 177. Sodium 142. Potassium 4.0. Bicarb 41. BUN 30. Creatinine 0.52. She is continued on bronchodilators, IV Solu-Medrol, antibiotics in the form of cefepime. Anticoagulated with Xarelto. Objective - Vital Signs Vital signs: Vital Signs Temp 97.5 F L 09/06/22 07:35 Pulse 74 09/06/22 11:57 Resp 18 09/06/22 07:35 BP 148/76 09/06/22 07:35 Pulse Ox 94 L 09/06/22 07:49 FiO2 Intake & Output 09/05/22 09/06/22 09/06/22 18:59 06:59 18:59 Intake Total 650 590 Balance 650 590 Intake: Intake, IV Titration 650 Amount Azithromycin 500 mg In 250 Sodium Chloride 0.9% 250 ml @ 250 mls/hr IVPB DAILY@1600 [facility] Rx#: [id number] Cefepime 2 gm In Sodium 200 Chloride 0.9% 100 ml @ 25 mls/hr IVPB Q8HR [facility] Rx# :[id number] Dextrose 5% in Water 1, 200 000 ml @ 50 mls/hr IV . Q20H [facility] Rx#:[id number] Oral 590 Other: Voiding Method Indwelling Catheter Indwelling Catheter Indwelling Catheter # Bowel Movements 1 - Exam GENERAL EXAM: Alert, pleasant, frail 67-year-old female, on 2 L nasal cannula. No conversational dyspnea, in no apparent distress. HEAD: Normocephalic and atraumatic EYES: Normal reaction of pupils, equal size. NOSE: Clear with pink turbinates. THROAT: No erythema or exudates. NECK: No masses, no JVD. CHEST: No chest wall deformity. LUNGS: Equal air entry with diffuse bilateral rhonchi and expiratory wheezes throughout. CVS: S1 and S2 normal with no audible murmur, regular rhythm. No extra heart sounds ABDOMEN: No hepatosplenomegaly, active bowel sounds, no guarding or rigidity. SPINE: No scoliosis or deformity SKIN: No rashes. Left femoral open wound healing by secondary intention. There is also a left anterior lower extremity wound with purulent drainage. CENTRAL NERVOUS SYSTEM: No focal deficits, tone is normal in all 4 extremities. EXTREMITIES: Right upper extremity PICC line in place. There is no peripheral edema, clubbing, or cyanosis. Peripheral pulses are faint but palpable. - Labs CBC & Chem 7: 09/06/22 06:55 09/06/22 06:55 Labs: Abnormal Lab Results - Last 24 Hours (Table) 09/06/22 09/06/22 Range/Units 06:55 06:55 WBC 10.7 H (3.8-10.6) k/uL RBC 2.94 L (3.80-5.40) m/uL Hgb 8.9 L (11.4-16.0) gm/dL Hct 29.2 L (34.0-46.0) % MCHC 30.4 L (31.0-37.0) g/dL RDW 16.8 H (11.5-15.5) % Neutrophils # 10.0 H (1.3-7.7) k/uL Lymphocytes # 0.2 L (1.0-4.8) k/uL Carbon Dioxide 41 H* (22-30) mmol/L BUN 30 H (7-17) mg/dL Glucose 164 H (74-99) mg/dL Microbiology - Last 24 Hours (Table) 09/05/22 10:09 Gram Stain - Preliminary Sputum Sputum Culture - Preliminary Gram Neg Bacilli Tracey albicans 09/05/22 15:50 Gram Stain - Preliminary Leg - Left Wound Culture - Preliminary Assessment and Plan Assessment: Healthcare associated pneumonia, failing outpatient treatment at [facility]. Sputum culture preliminary for gram-negative bacilli, Tracey albicans. Patient has had recent left lower lobe pneumonia with Pseudomonas aeruginosa being the isolated organism. Acute COPD exacerbation secondary to above. Normally maintained with a combination of Spiriva, Advair, and albuterol inhalers. Acute on chronic hypoxemic and hypercapnic respiratory failure. Normally maintained on 2 L per minute nasal cannula home O2. History of Jefferson valve placement for severe end-stage COPD. Elevated troponins likely related to demand ischemia due to pneumonia and hypoxia. No chest pain or obvious ischemic changes seen on ECG. Chronic wounds Sjogren's, normally maintained on Plaquenil Chronic anemia. Hemoglobin currently 8.0 g/dL Chronic atrial fibrillation anticoagulated on Xarelto Peripheral vascular disease Hyperlipidemia Hypertension GERD History of left breast cancer status post radiation and lumpectomy Ex-smoker of approximately 50 pack years Plan: The patient was seen and evaluated Medications and labs reviewed Continue D5W at 50 MLS per hour Continue current medications Antibiotics per ID services Prognosis is guarded We will continue to follow I have personally seen and examined the patient, performed the documentation and the assessment and plan as written. Number of minutes spent on the visit: 10.
[2022-09-06] MEDS: THIAMINE 100 MG TAB PO SCH (12:52)
[2022-09-06] MEDS: FOLIC ACID 1 MG TAB PO SCH (12:52)
[2022-09-06] MEDS: ASPIRIN 81 MG PO SCH (12:52)
[2022-09-06] MEDS: MULTIVITAMINS, THERA 1 EACH TAB PO SCH (12:52)
[2022-09-06] MEDS: CALCIUM CARBONATE 500 MG CHEWABLE PO SCH (12:52)
--- NOTE | 2022-09-06 14:16 | P.PN ---
Subjective Progress Note Date: 09/06/22 Principal diagnosis: Pneumonia and left leg wound Patient is a 67-year-old female who was recently admitted at this facility and treated for Pseudomonas bacteremia related to combination of pneumonia and left groin infected wound patient did clear her bacteremia at the patient also have extensive surgery and debridement of the left groin wound patient was discharged to the halfway on cefepime 2 g every 8 hours, presented to the hospital with increasing shortness of breath. On today's evaluation, that is 09/06/2022, the patient remains to be afebrile, breathing slightly comfortably currently on 3 L nasal cannula still having a cough with occasional sputum production nausea but no vomiting no abdominal pain mentioned did have some diarrhea and no worsening pain to the left leg wound area Objective - Vital Signs Vital signs: Vital Signs Temp 97.5 F L 09/06/22 07:35 Pulse 74 09/06/22 11:57 Resp 18 09/06/22 07:35 BP 148/76 09/06/22 07:35 Pulse Ox 94 L 09/06/22 07:49 FiO2 Intake & Output 09/05/22 09/06/22 09/06/22 18:59 06:59 18:59 Intake Total 650 590 Balance 650 590 Intake: Intake, IV Titration 650 Amount Azithromycin 500 mg In 250 Sodium Chloride 0.9% 250 ml @ 250 mls/hr IVPB DAILY@1600 [facility] Rx#: [id number] Cefepime 2 gm In Sodium 200 Chloride 0.9% 100 ml @ 25 mls/hr IVPB Q8HR [facility] Rx# :[id number] Dextrose 5% in Water 1, 200 000 ml @ 50 mls/hr IV . Q20H [facility] Rx#:[id number] Oral 590 Other: Voiding Method Indwelling Catheter Indwelling Catheter Indwelling Catheter # Bowel Movements 1 - Exam GENERAL DESCRIPTION: An elderly female lying in bed in no distress RESPIRATORY SYSTEM: Unlabored breathing , coarse pulses bilaterally HEART: S1 S2 regular rate and rhythm , ABDOMEN: Soft , no tenderness EXTREMITIES: Left leg wound with slough tissue no significant redness or d rainage - Labs CBC & Chem 7: 09/06/22 06:55 09/06/22 06:55 Labs: Abnormal Lab Results - Last 24 Hours (Table) 09/06/22 09/06/22 Range/Units 06:55 06:55 WBC 10.7 H (3.8-10.6) k/uL RBC 2.94 L (3.80-5.40) m/uL Hgb 8.9 L (11.4-16.0) gm/dL Hct 29.2 L (34.0-46.0) % MCHC 30.4 L (31.0-37.0) g/dL RDW 16.8 H (11.5-15.5) % Neutrophils # 10.0 H (1.3-7.7) k/uL Lymphocytes # 0.2 L (1.0-4.8) k/uL Carbon Dioxide 41 H* (22-30) mmol/L BUN 30 H (7-17) mg/dL Glucose 164 H (74-99) mg/dL Microbiology - Last 24 Hours (Table) 09/05/22 15:50 Gram Stain - Preliminary Leg - Left Wound Culture - Preliminary Gram Neg Bacilli 09/05/22 10:09 Gram Stain - Preliminary Sputum Sputum Culture - Preliminary Gram Neg Bacilli Tracey albicans Assessment and Plan (1) Pneumonia Current Visit: Yes Status: Acute Code(s): J18.9 - PNEUMONIA, UNSPECIFIED ORGANISM SNOMED Code(s): 059819305 Plan: 1patient presented to hospital with increasing shortness of breath could be related to her COPD exacerbation concerning for possible tracheobronchitis versus worsening pneumonia in this patient who is already getting cefepime at the halfway for her previous bacteremia and the patient seem to have shown clinical improvement with addition of Solu-Medrol sputum culture has been requested currently growing gram-negative with ID sensitivities pending 2patient left groin wound is almost healed and no evidence of any cellulitis. 3left lower extremity wound did show slough tissue but no significant surrounding redness and local cultures currently growing gram-negative with a recent status pending 4patient to continue with cefepime 2 g every 8 hours and monitor clinical course closely Time with Patient: Less than 30
[2022-09-06] MEDS: COLLAGENASE 250 UNIT/GM OINTMENT 30 GM TUBE TOPICAL SCH (14:55)
[2022-09-06] MEDS: HYDROcodone/APAP 10-325MG 1 EACH TAB PO PRN (15:57)
[2022-09-06] MEDS: CHOLECALCIFEROL 25 MCG (1000 IU) TABLET PO SCH (18:04)
[2022-09-06] MEDS: ATORVASTATIN 80 MG TAB PO SCH (21:27)
[2022-09-07] MEDS: DEXTROSE 5% IN WATER 1,000 ML IV SCH ×2 (04:20→23:11)
[2022-09-07] MEDS: methylPREDNISolone SOD SUCCI 125 MG/2 ML VIAL IV SCH ×4 (05:47→23:07)
[2022-09-07] MEDS: DILTIAZEM ORAL 30 MG TAB PO SCH ×3 (05:47→20:06)
[2022-09-07] MEDS: ALBUTEROL NEBULIZED 2.5 MG/3 ML INHALATION SCH (07:47)
[2022-09-07] MEDS: IPRATROPIUM 0.5 MG/2.5 ML NEBU INHALATION SCH ×4 (07:48→20:00)
[2022-09-07] MEDS: ADVAIR INHALATION SCH ×2 (07:48→18:55)
[2022-09-07] MEDS: CEFEPIME 2 GM in SODIUM CHLORIDE 0.9% 100 ML IVPB SCH (07:57)
[2022-09-07] MEDS: RIVAROXABAN 2.5 MG TABLET PO SCH ×2 (07:57→18:56)
[2022-09-07] MEDS: HYDROXYCHLOROQUINE SULFATE 200 MG TAB PO SCH ×2 (07:57→18:56)
[2022-09-07] MEDS: GABAPENTIN 400 MG CAP PO SCH ×3 (07:57→20:06)
[2022-09-07] MEDS: PANTOPRAZOLE 40 MG TABLET PO SCH ×2 (07:57→18:56)
[2022-09-07] MEDS: METOPROLOL TARTRATE 25 MG TAB PO SCH ×2 (07:58→18:56)
[2022-09-07] MEDS: LETROZOLE 2.5 MG TAB PO SCH (07:58)
[2022-09-07] MEDS: FUROSEMIDE 20 MG TAB PO SCH ×2 (07:58→18:55)
[2022-09-07] MEDS: guaiFENesin-DM 600/30MG 1 EACH TAB.ER.12H PO SCH ×2 (07:58→20:06)
[2022-09-07] MEDS: POTASSIUM CHLORIDE ER 20 MEQ TAB.ER PO SCH (07:58)
[2022-09-07] MEDS: buPROPion SR 100 MG TABLET.ER PO SCH (08:42)
--- NOTE | 2022-09-07 09:43 | XR ---
EXAMINATION TYPE: XR chest 1V portable DATE OF EXAM: 09/07/2022 COMPARISON: 09/06/2022 HISTORY: Shortness of breath TECHNIQUE: Single frontal view of the chest is obtained. FINDINGS: Stable right-sided PICC line. A bilateral consolidation and pleural effusion stable. Under lying COPD noted. Cardiac silhouette size stable and mildly enlarged with atherosclerotic change invo lving the aortic knob. Osseous structures are intact. Metallic stents are seen in the left hilum. The re is diffuse osteopenia. Calcification along the right humeral head suggests calcific tendinosis. IMPRESSION: Bilateral consolidation and pleural effusion greater on the left superimposed on a backg round COPD is stable.
[2022-09-07] MEDS: COLLAGENASE 250 UNIT/GM OINTMENT 30 GM TUBE TOPICAL SCH (10:22)
[2022-09-07] MEDS: ALBUTEROL NEBULIZED 2.5 MG/3 ML INHALATION PRN ×2 (11:42→15:34)
[2022-09-07] MEDS: MEROPENEM 1 GM in SODIUM CHLORIDE 0.9% 100 ML IVPB SCH ×3 (11:58→23:06)
[2022-09-07] MEDS: ASPIRIN 81 MG PO SCH (11:58)
--- NOTE | 2022-09-07 12:25 | PN ---
PROGRESS NOTE DATE OF SERVICE: 09/07/2022 SUBJECTIVE: This is a 67-year-old woman, admitted with multiple medical issues taken a turn for the worse. The patient had acute respiratory failure. The patient was started on BiPAP. The patient also had resistant Pseudomonas, and the pseudomonas is resistant to cefepime and Zosyn at this time. PAST MEDICAL HISTORY: Reviewed. REVIEW OF SYSTEMS: Could not be taken as the patient is on BiPAP. CURRENT MEDICATIONS: Reviewed include cefepime. Doses and rest of medication noted. PHYSICAL EXAMINATION: VITAL SIGNS: Pulse is 62, blood pressure 165/61, respirations 18. CHEST: A few scattered rhonchi and crackles. ABDOMEN: Soft, nontender. NERVOUS SYSTEM: Diffusely weak. LABORATORY DATA: Hemoglobin 8.9 and CO2 is 41. ASSESSMENT: 1. Acute bibasilar pneumonia, left more than the right with pleural effusion with slow improvement. 2. Acute hypoxic respiratory failure, on BiPAP. 3. Left leg severe cellulitis with possibly of wound and ulceration with failure of outpatient treatment. 4. Chronic obstructive pulmonary disease acute exacerbation. 5. Resistant Pseudomonas. 6. Gait dysfunction. 7. Chronic wounds. 8. Sjogren's syndrome. 9. Multiple medical issues. 10.Full code. RECOMMENDATIONS AND DISCUSSION: Recommend to continue current medications, continue symptomatic treatment. Continue with bronchodilators. Continue with the rest of the medications. I would also recommend changing the antibiotics possibly along with the ID, otherwise optimize bronchodilator treatment. Prognosis guarded. Further recommendations to follow. MMODL / IJN: [id number] /
--- NOTE | 2022-09-07 13:13 | US ---
EXAMINATION TYPE: US chest DATE OF EXAM: 09/07/2022 COMPARISON: 09/04/2022 CLINICAL HISTORY: lt effusion. known left effusion, marked 3 days prior, reassess, no thora yet TECHNIQUE: Targeted ultrasound of the posterior lower Left EXAM MEASUREMENTS: Left Pleural Effusion pocket size: 6.3 cm Left skin surface to fluid distance: 2.1 cm Left side marked for possible thoracentesis outside the dept. Pulmonologists are able to review the images in the patient?s EMR. IMPRESSIONS: Small left pleural effusion slightly reduced in size from prior exam
[2022-09-07] MEDS: CALCIUM CARBONATE 500 MG CHEWABLE PO SCH (13:48)
[2022-09-07] MEDS: FOLIC ACID 1 MG TAB PO SCH (13:48)
[2022-09-07] MEDS: MULTIVITAMINS, THERA 1 EACH TAB PO SCH (13:49)
[2022-09-07] MEDS: THIAMINE 100 MG TAB PO SCH (13:49)
--- NOTE | 2022-09-07 14:31 | P.PN ---
Subjective Progress Note Date: 09/07/22 I'm seeing this patient today 09/03/2022 in new consultation on the general medical floor for pneumonia. This is a 67-year-old female patient with an extenisve past medical history of advanced COPD, previous [place] valve insertion, maintained on a combination of Advair, albuterol, and Spiriva outpatient basis, she is oxygen dependent at home on 2 L/m nasal cannula at baseline, iatrogenic pneumothorax, pneumonia, sjogrens, atrial fibrillation anticoagulated Xarelto, and peripheral vascular disease. Patient has had recent left femoral endarterectomy and left femoral to tibial bypass graft complicated by pseudoaneurysm post repair on 08/15/2022. During the stay, the patient ended up developing pneumonia sepsis and spent some time in the intensive care unit. Identified organism at that time was Pseudomonas aeruginosa. Patient did have a prolonged stay, and required rehab at [facility] afterwards. While at [facility], patient was experiencing severe shortness of breath, congested nonproductive co ugh, fevers and chills. Denies chest pain, hemoptysis. Patient failed outpatient treatment for pneumonia, and was transferred to [facility] yesterday evening. Patient is currently resting in bed, on 3 L nasal cannula, in no acute distress. Chest x-ray on arrival showed left greater than right bibasilar acute infiltrates, some stable cardiomegaly, and chronic emphysematous changes. CBC on arrival shows leukocytosis with a WBC count of 15.1, hemoglobin 9.6, hematocrit 30.7, platelets 138,000. BMP on arrival shows sodium 140, potassium 4, chloride 95, serum CO2 chronically elevated at 41, BP 127, creatinine 0.54, glucose 116. Troponin was mildly elevated at 0.056. No obvious ischemic changes on ECG. ProBNP 2340. Patient is receiving home dose of Lasix 20 mg twice a day. Patient was negative for COVID-19 on arrival. A pro calcitonin level is pending. Patient is covered with a combination of azithromycin and cefepime. Afebrile for now. Patient does have a chronic left leg wound, in which she normally follows up with wound care. Vital signs are stable. The patient is seen today 09/05/2022 in follow-up on the regular medical floor. She is currently sitting up in bed. Awake and alert in no acute distress. Maintaining O2 saturations in the 90s on 2 L/m per nasal cannula. Afebrile. Hemodynamically stable. Ultrasound of the chest did not reveal any free flowing fluid for thoracentesis. There was noted lung tissue within the fluid. White count 9.5. Hemoglobin 8.0. Platelets 134. Sodium 150. Potassium 3.6. Bicarb 41. BUN 23. Creatinine 0.4. Glucose 145. Pro calcitonin 0.26. She is continued on bronchodilators, IV Solu-Medrol, antibiotics in the form of cefepime and azithromycin. Anticoagulated with Xarelto. The patient is seen today 09/06/2022 in follow-up on the regular medical floor. She is resting comfortably in bed. Awake and alert in no acute distress. Doing a bit better today compared to yesterday. Less shortness of breath. Less cough and congestion. Maintaining O2 saturations in the 90s on 2 L/m per nasal cannula. She's been afebrile. Hemodynamically stable. Chest x-ray continues to revealed bilateral consolidation and pleural effusions greater on the left superimposed on COPD. Right-sided PICC line remains in place. Sputum Gram stain with preliminary gram-negative bacilli, Candidus albicans. Left leg wound culture pending. White count 10.7. Hemoglobin 8.9. Platelets 177. Sodium 142. Potassium 4.0. Bicarb 41. BUN 30. Creatinine 0.52. She is continued on bronchodilators, IV Solu-Medrol, antibiotics in the form of cefepime. Anticoagulated with Xarelto. The patient is seen today 09/07/2022 in follow-up on the regular medical floor. Throughout this senior partner she is developing increasing shortness of breath and increasing oxygen requirements. Chest x-ray continues show bilateral consolidation and pleural effusion left greater than right. Sputum culture is positive for pseudomonas aeruginosa. Left leg wound culture positive for pseudomonas aeruginosa. She was switched to meropenem. Continued on IV Solu- Medrol and bronchodilators. Anticoagulated with Xarelto. Ultrasound of the left chest today reveals a 6.3 cm pocket. She was placed on BiPAP 05/09 at 40% FiO2. Objective - Vital Signs Vital signs: Vital Signs Temp 97.1 F L 09/07/22 12:34 Pulse 63 09/07/22 12:34 Resp 20 09/07/22 12:34 BP 128/74 04/06/23 12:34 Pulse Ox 97 09/07/22 12:34 FiO2 40 09/07/22 11:51 Intake & Output 09/06/22 09/07/22 09/07/22 18:59 06:59 18:59 Intake Total 1000 Output Total 600 300 Balance -600 700 Intake: Intake, IV Titration 700 Amount Cefepime 2 gm In Sodium 100 Chloride 0.9% 100 ml @ 25 mls/hr IVPB Q8HR [facility] Rx# :[id number] Dextrose 5% in Water 1, 600 000 ml @ 50 mls/hr IV . Q20H PAO Rx#:[id number] Oral 300 Output: Urine 600 300 Other: Voiding Method Indwelling Catheter Indwelling Catheter Indwelling Catheter # Bowel Movements 1 - Exam GENERAL EXAM: Alert, pleasant, frail 67-year-old female, on BiPAP 05/09 at 40% FiO2. In mild respiratory distress. HEAD: Normocephalic and atraumatic EYES: Normal reaction of pupils, equal size. NOSE: Clear with pink turbinates. THROAT: No erythema or exudates. NECK: No masses, no JVD. CHEST: No chest wall deformity. LUNGS: Equal air entry with diffuse bilateral rhonchi and expiratory wheezes throughout. CVS: S1 and S2 normal with no audible murmur, regular rhythm. No extra heart sounds ABDOMEN: No hepatosplenomegaly, active bowel sounds, no guarding or rigidity. SPINE: No scoliosis or deformity SKIN: No rashes. Left femoral open wound healing by secondary intention. There is also a left anterior lower extremity wound with purulent drainage. CENTRAL NERVOUS SYSTEM: No focal deficits, tone is normal in all 4 extremities. EXTREMITIES: Right upper extremity PICC line in place. There is no peripheral edema, clubbing, or cyanosis. Peripheral pulses are faint but palpable. - Labs CBC & Chem 7: 09/06/22 06:55 09/06/22 06:55 Labs: Microbiology - Last 24 Hours (Table) 09/05/22 15:50 Gram Stain - Final Leg - Left Wound Culture - Final Pseudomonas aeruginosa 09/05/22 10:09 Gram Stain - Final Sputum Sputum Culture - Final Pseudomonas aeruginosa Tracey albicans 09/05/22 13:19 Blood Culture - Preliminary Blood No Growth after 24 hours Assessment and Plan Assessment: Healthcare associated pneumonia, failing outpatient treatment at [facility]. Sputum culture again positive for pseudomonas aeruginosa, Tracey albicans. She's been switched to meropenem on cefepime today. Patient has had recent left lower lobe pneumonia with Pseudomonas aeruginosa being the isolated organism. Acute COPD exacerbation secondary to above. Normally maintained with a combination of Spiriva, Advair, and albuterol inhalers. Acute on chronic hypoxemic and hypercapnic respiratory failure. Normally maintained on 2 L per minute nasal cannula home O2. History of [place] valve placement for severe end-stage COPD. Elevated troponins likely related to demand ischemia due to pneumonia and hypoxia. No chest pain or obvious ischemic changes seen on ECG. Chronic wounds of the left lower extremity, positive for pseudomonas aeruginosa Sjogren's, normally maintained on Plaquenil Chronic anemia. Hemoglobin currently 8.0 g/dL Chronic atrial fibrillation anticoagulated on Xarelto Peripheral vascular disease Hyperlipidemia Hypertension GERD History of left breast cancer status post radiation and lumpectomy Ex-smoker of approximately 50 pack years Plan: The patient was seen and evaluated Medications and labs reviewed She is now requiring BiPAP support Ultrasound of the left chest with a 6.3 cm pocket May consider repeat thoracentesis, currently on Xarelto Antibiotics switched from cefepime to meropenem for pseudomonas Prognosis is guarded We spoke with the patient's and family at the bedside She is a DO NOT RESUSCITATE/DO NOT INTUBATE CODE STATUS We will continue to follow I have personally seen and examined the patient, performed the documentation and the assessment and plan as written. Number of minutes spent on the visit: 10.
--- NOTE | 2022-09-07 15:44 | P.PN ---
Subjective Progress Note Date: 09/07/22 Principal diagnosis: Pneumonia and left leg wound Patient is a 67-year-old female who was recently admitted at this facility and treated for Pseudomonas bacteremia related to combination of pneumonia and left groin infected wound patient did clear her bacteremia at the patient also have extensive surgery and debridement of the left groin wound patient was discharged to the shelter on cefepime 2 g every 8 hours, presented to the hospital with increasing shortness of breath. On today's evaluation, that is 09/07/2022, the patient continues to be afebrile, patient seemed to have worsening of her respiratory status and is currently on a BiPAP patient was lethargic and did not answer any question or vomiting or diarrhea has been reported Objective - Vital Signs Vital signs: Vital Signs Temp 97.1 F L 09/07/22 12:34 Pulse 63 09/07/22 12:34 Resp 20 09/07/22 12:34 BP 128/74 09/07/22 12:34 Pulse Ox 97 09/07/22 12:34 FiO2 40 09/07/22 11:51 Intake & Output 09/06/22 09/07/22 09/07/22 18:59 06:59 18:59 Intake Total 1000 Output Total 600 300 Balance -600 700 Intake: Intake, IV Titration 700 Amount Cefepime 2 gm In Sodium 100 Chloride 0.9% 100 ml @ 25 mls/hr IVPB Q8HR [facility] Rx# :[id number] Dextrose 5% in Water 1, 600 000 ml @ 50 mls/hr IV . Q20H PAO Rx#:[id number] Oral 300 Output: Urine 600 300 Other: Voiding Method Indwelling Catheter Indwelling Catheter Indwelling Catheter # Bowel Movements 1 - Exam GENERAL DESCRIPTION: An elderly female lying in bed in no distress RESPIRATORY SYSTEM: Unlabored breathing , coarse pulses bilaterally HEART: S1 S2 regular rate and rhythm , ABDOMEN: Soft , no tenderness EXTREMITIES: Left leg wound with slough tissue no significant redness or drainage - Labs CBC & Chem 7: 09/06/22 06:55 09/06/22 06:55 Labs: Microbiology - Last 24 Hours (Table) 09/05/22 15:50 Gram Stain - Final Leg - Left Wound Culture - Final Pseudomonas aeruginosa 09/05/22 10:09 Gram Stain - Final Sputum Sputum Culture - Final Pseudomonas aeruginosa Tracey albicans 09/05/22 13:19 Blood Culture - Preliminary Blood No Growth after 24 hours Assessment and Plan (1) Pneumonia Current Visit: Yes Status: Acute Code(s): J18.9 - PNEUMONIA, UNSPECIFIED ORGANISM SNOMED Code(s): 351410294 (2) Non-pressure chronic ulcer of left calf with fat layer exposed Current Visit: No Status: Acute Code(s): L97.222 - NON-PRESSURE CHRONIC ULCER OF LEFT CALF W FAT LAYER EXPOSED SNOMED Code(s): 31763736934387018 Plan: 1patient presented to hospital with increasing shortness of breath could be related to her COPD exacerbation concerning for possible tracheobronchitis versus worsening pneumonia in this patient who is already getting cefepime at the shelter for her previous bacteremia and the patient did have worsening of her respiratory status requiring BiPAP sputum is growing and resistant Pseudomonas antibiotic has been switched to meropenem 2patient left groin wound is almost healed and no evidence of any cellulitis. 3left lower extremity wound did show slough tissue but no significant surrounding redness and local cultures growing drug resistant Pseudomonas and should be covered with a meropenem Time with Patient: Less than 30
[2022-09-07] MEDS: CHOLECALCIFEROL 25 MCG (1000 IU) TABLET PO SCH (18:55)
[2022-09-07] MEDS: ATORVASTATIN 80 MG TAB PO SCH (20:06)
[2022-09-07] MEDS: PANTOPRAZOLE 40 MG/10 ML VIAL IVP SCH (20:12)
[2022-09-07] MEDS: HEPARIN SODIUM,PORCINE/PF 5,000 UNIT/0.5 ML SYRINGE SQ SCH (20:15)
[2022-09-07] MEDS: FUROSEMIDE 10 MG/ML 2 ML VIAL IV SCH (20:15)
[2022-09-07] MEDS ORDERED: MORPHINE SULFATE 2 MG/ML SYRINGE IVP STA (22:56)
[2022-09-08] MEDS: DILTIAZEM ORAL 30 MG TAB PO SCH ×3 (05:12→21:02)
[2022-09-08] MEDS: methylPREDNISolone SOD SUCCI 125 MG/2 ML VIAL IV SCH ×4 (05:13→23:53)
[2022-09-08] MEDS: ALBUTEROL NEBULIZED 2.5 MG/3 ML INHALATION PRN ×2 (07:32→20:14)
[2022-09-08] MEDS: IPRATROPIUM 0.5 MG/2.5 ML NEBU INHALATION SCH ×4 (07:33→20:14)
[2022-09-08] MEDS: ADVAIR INHALATION SCH ×2 (07:33→15:56)
[2022-09-08] MEDS: buPROPion SR 100 MG TABLET.ER PO SCH (09:45)
[2022-09-08] MEDS: LETROZOLE 2.5 MG TAB PO SCH (09:46)
[2022-09-08] MEDS: HYDROXYCHLOROQUINE SULFATE 200 MG TAB PO SCH ×2 (09:46→17:09)
[2022-09-08] MEDS: GABAPENTIN 400 MG CAP PO SCH ×3 (09:46→21:02)
[2022-09-08] MEDS: MEROPENEM 1 GM in SODIUM CHLORIDE 0.9% 100 ML IVPB SCH ×3 (09:46→23:53)
[2022-09-08] MEDS: guaiFENesin-DM 600/30MG 1 EACH TAB.ER.12H PO SCH ×2 (09:46→21:02)
[2022-09-08] MEDS: POTASSIUM CHLORIDE ER 20 MEQ TAB.ER PO SCH (09:47)
[2022-09-08] MEDS: METOPROLOL TARTRATE 25 MG TAB PO SCH ×2 (09:47→17:09)
[2022-09-08] MEDS: HEPARIN SODIUM,PORCINE/PF 5,000 UNIT/0.5 ML SYRINGE SQ SCH ×2 (09:47→21:52)
[2022-09-08] MEDS: FUROSEMIDE 10 MG/ML 2 ML VIAL IV SCH ×2 (09:47→21:52)
[2022-09-08] MEDS: PANTOPRAZOLE 40 MG/10 ML VIAL IVP SCH ×2 (09:47→21:52)
[2022-09-08] MEDS: COLLAGENASE 250 UNIT/GM OINTMENT 30 GM TUBE TOPICAL SCH (09:48)
[2022-09-08 11:24] LABS: HCT 28.6 % (37.2-46.3); HGB 8.3 g/dL (12.0-15.0); MCH 30.1 pg (27.0-32.0); MCV 103.6 fL (80.0-97.0); NRBC Per 100 WBC 0.2 /100 WBCS (0.0-0.0); Platelet Count 163 X 10*3/uL (140-440); RBC 2.76 X 10*6/uL (4.10-5.20); WBC 13.46 X 10*3/uL (4.50-10.00)
[2022-09-08 11:31] LABS: African American GFR (CKD) 115.3 (60.0-200.0); BUN/Creat Ratio 58.8 Ratio (12.00-20.00); Blood Urea Nitrogen 29.4 mg/dL (9.0-27.0); Calcium 8.8 mg/dL (8.7-10.3); Magnesium 2.1 mg/dL (1.5-2.4); Non-African American GFR(CKD) 99.4 (60.0-200.0); Potassium 4.2 mmol/L (3.5-5.5)
[2022-09-08] MEDS ORDERED: MORPHINE SULFATE 2 MG/ML SYRINGE IVP STA (11:41)
[2022-09-08] MEDS: ASPIRIN 81 MG PO SCH (11:45)
[2022-09-08] MEDS: THIAMINE 100 MG TAB PO SCH (11:52)
[2022-09-08] MEDS: MULTIVITAMINS, THERA 1 EACH TAB PO SCH (11:52)
[2022-09-08 12:13] LABS: Basophils # (A) 0.03 X 10*3/uL (0.00-0.10); Basophils % (A) 0.2 %; Eosinophils # (A) 0 X 10*3/uL (0.04-0.35); Eosinophils % (A) 0 %; Immature Grans, Automated 1.9 %; Lymphocytes # (A) 0.16 X 10*3/uL (0.90-5.00); Lymphocytes % (A) 1.2 %; Monocytes # (A) 0.61 X 10*3/uL (0.20-1.00); Monocytes % (A) 4.5 %; Neutrophils # (A) 12.41 X 10*3/uL (1.80-7.70); Neutrophils % (A) 92.2 %
--- NOTE | 2022-09-08 12:44 | P.PN ---
Subjective Progress Note Date: 09/08/22 I'm seeing this patient today 09/03/2022 in new consultation on the general medical floor for pneumonia. This is a 67-year-old female patient with an extenisve past medical history of advanced COPD, previous [place] valve insertion, maintained on a combination of Advair, albuterol, and Spiriva outpatient basis, she is oxygen dependent at home on 2 L/m nasal cannula at baseline, iatrogenic pneumothorax, pneumonia, sjogrens, atrial fibrillation anticoagulated Xarelto, and peripheral vascular disease. Patient has had recent left femoral endarterectomy and left femoral to tibial bypass graft complicated by pseudoaneurysm post repair on 08/15/2022. During the stay, the patient ended up developing pneumonia sepsis and spent some time in the intensive care unit. Identified organism at that time was Pseudomonas aeruginosa. Patient did have a prolonged stay, and required rehab at [facility] afterwards. While at [facility], patient was experiencing severe shortness of breath, congested nonproductive co ugh, fevers and chills. Denies chest pain, hemoptysis. Patient failed outpatient treatment for pneumonia, and was transferred to [facility] yesterday evening. Patient is currently resting in bed, on 3 L nasal cannula, in no acute distress. Chest x-ray on arrival showed left greater than right bibasilar acute infiltrates, some stable cardiomegaly, and chronic emphysematous changes. CBC on arrival shows leukocytosis with a WBC count of 15.1, hemoglobin 9.6, hematocrit 30.7, platelets 138,000. BMP on arrival shows sodium 140, potassium 4, chloride 95, serum CO2 chronically elevated at 41, BP 127, creatinine 0.54, glucose 116. Troponin was mildly elevated at 0.056. No obvious ischemic changes on ECG. ProBNP 2340. Patient is receiving home dose of Lasix 20 mg twice a day. Patient was negative for COVID-19 on arrival. A pro calcitonin level is pending. Patient is covered with a combination of azithromycin and cefepime. Afebrile for now. Patient does have a chronic left leg wound, in which she normally follows up with wound care. Vital signs are stable. The patient is seen today 09/05/2022 in follow-up on the regular medical floor. She is currently sitting up in bed. Awake and alert in no acute distress. Maintaining O2 saturations in the 90s on 2 L/m per nasal cannula. Afebrile. Hemodynamically stable. Ultrasound of the chest did not reveal any free flowing fluid for thoracentesis. There was noted lung tissue within the fluid. White count 9.5. Hemoglobin 8.0. Platelets 134. Sodium 150. Potassium 3.6. Bicarb 41. BUN 23. Creatinine 0.4. Glucose 145. Pro calcitonin 0.26. She is continued on bronchodilators, IV Solu-Medrol, antibiotics in the form of cefepime and azithromycin. Anticoagulated with Xarelto. The patient is seen today 09/06/2022 in follow-up on the regular medical floor. She is resting comfortably in bed. Awake and alert in no acute distress. Doing a bit better today compared to yesterday. Less shortness of breath. Less cough and congestion. Maintaining O2 saturations in the 90s on 2 L/m per nasal cannula. She's been afebrile. Hemodynamically stable. Chest x-ray continues to revealed bilateral consolidation and pleural effusions greater on the left superimposed on COPD. Right-sided PICC line remains in place. Sputum Gram stain with preliminary gram-negative bacilli, Candidus albicans. Left leg wound culture pending. White count 10.7. Hemoglobin 8.9. Platelets 177. Sodium 142. Potassium 4.0. Bicarb 41. BUN 30. Creatinine 0.52. She is continued on bronchodilators, IV Solu-Medrol, antibiotics in the form of cefepime. Anticoagulated with Xarelto. The patient is seen today 09/07/2022 in follow-up on the regular medical floor. 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 Chest x-ray continues show bilateral consolidation and pleural effusion left greater than right. Sputum culture is positive for pseudomonas aeruginosa. Left leg wound culture positive for pseudomonas aeruginosa. She was switched to meropenem. Continued on IV Solu- Medrol and bronchodilators. Anticoagulated with Xarelto. Ultrasound of the left chest today reveals a 6.3 cm pocket. She was placed on BiPAP 12/6 at 40% FiO2. The patient is seen today 09/08/2022 in follow-up on the regular medical floor. She is currently on BiPAP 12/6 at 40% FiO2. This is less responsive today compared to yesterday. Her left-sided ultrasound of the chest revealed a small 6.3 cm pocket. No plans for thoracentesis. She is not taking any oral medica tions. Her family is at the bedside. She is a DO NOT RESUSCITATE/DO NOT INTUBATE CODE STATUS. She is continued on bronchodilators, IV Solu-Medrol, IV diuretics. Left wound culture positive for pseudomonas aeruginosa. Sputum cultures positive for pseudomonas aeruginosa. Currently on meropenem. White count 13.4. Hemoglobin 8.3. Platelets 163. Sodium 141. Potassium 4.2. A 37. BUN 29. Creatinine 0.5. Glucose 181. Objective - Vital Signs Vital signs: Vital Signs Temp 97.6 F 09/08/22 12:00 Pulse 74 09/08/22 12:36 Resp 16 09/08/22 12:00 BP 145/71 09/08/22 12:00 Pulse Ox 91 L 09/08/22 12:00 FiO2 40 09/08/22 12:26 Intake & Output 09/07/22 09/08/22 09/08/22 18:59 06:59 18:59 Intake Total 710 Output Total 450 700 Balance -450 10 Intake: Intake, IV Titration 700 Amount Dextrose 5% in Water 1, 600 000 ml @ 50 mls/hr IV . Q20H [facility]O Rx#:[id number] Meropenem 1 gm In Sodium 100 Chloride 0.9% 100 ml @ 33 .3 mls/hr IVPB Q8HR PAO Rx#:[id number] Oral 10 Output: Urine 450 700 Other: Voiding Method Indwelling Catheter Indwelling Catheter Indwelling Catheter - Exam GENERAL EXAM: Arousable, frail 67-year-old female, on BiPAP 126 at 40% FiO2. In mild respiratory distress. HEAD: Normocephalic and atraumatic EYES: Normal reaction of pupils, equal size. NOSE: Clear with pink turbinates. THROAT: No erythema or exudates. NECK: No masses, no JVD. CHEST: No chest wall deformity. LUNGS: Equal air entry with diffuse bilateral rhonchi and expiratory wheezes throughout. CVS: S1 and S2 normal with no audible murmur, regular rhythm. No extra heart sounds ABDOMEN: No hepatosplenomegaly, active bowel sounds, no guarding or rigidity. SPINE: No scoliosis or deformity SKIN: No rashes. Left femoral open wound healing by secondary intention. There is also a left anterior lower extremity wound with purulent drainage. CENTRAL NERVOUS SYSTEM: No focal deficits, tone is normal in all 4 extremities. EXTREMITIES: Right upper extremity PICC line in place. There is no peripheral edema, clubbing, or cyanosis. Peripheral pulses are faint but palpable. - Labs CBC & Chem 7: 09/08/22 06:49 09/08/22 06:49 Labs: Abnormal Lab Results - Last 24 Hours (Table) 09/08/22 09/08/22 Range/Units 06:49 06:49 WBC 13.46 H (4.50-10.00) X 10*3/uL RBC 2.76 L (4.10-5.20) X 10*6/uL Hgb 8.3 L (12.0-15.0) g/dL Hct 28.6 L (37.2-46.3) % MCV 103.6 H (80.0-97.0) fL MCHC 29.0 L (32.0-37.0) g/dL RDW 17.0 H (11.5-14.5) % Absolute Nucleated RBC 0.03 H (0.00-0.00) X 10*3/uL Immature Gran # 0.25 H (0.00-0.04) X 10*3/uL Neutrophils # 12.41 H (1.80-7.70) X 10*3/uL Lymphocytes # 0.16 L (0.90-5.00) X 10*3/uL Eosinophils # 0 L (0.04-0.35) X 10*3/uL NRBC/100 WBC Diff 0.2 H (0.0-0.0) /100 WBCS Carbon Dioxide 37.0 H (20.0-27.5) mmol/L Anion Gap 7.00 L (10.00-18.00) mmol/L BUN 29.4 H (9.0-27.0) mg/dL Creatinine 0.5 L (0.6-1.5) mg/dL BUN/Creatinine Ratio 58.80 H (12.00-20.00) Ratio Glucose 181 H (70-110) mg/dL Microbiology - Last 24 Hours (Table) 09/05/22 13:19 Blood Culture - Preliminary Blood No Growth after 48 hours 09/05/22 15:50 Gram Stain - Final Leg - Left Wound Culture - Final Pseudomonas aeruginosa 09/05/22 10:09 Gram Stain - Final Sputum Sputum Culture - Final Pseudomonas aeruginosa Tracey albicans Assessment and Plan Assessment: Healthcare associated pneumonia, failing outpatient treatment at [facility]. Sputum culture again positive for pseudomonas aeruginosa, Tracey albicans. She's been switched to meropenem on cefepime today. Patient has had recent left lower lobe pneumonia with Pseudomonas aeruginosa being the isolated organism. Acute COPD exacerbation secondary to above. Normally maintained with a combination of Spiriva, Advair, and albuterol inhalers. Acute on chronic hypoxemic and hypercapnic respiratory failure. Normally maintained on 2 L per minute nasal cannula home O2. Currently requiring BiPAP support History of [place] valve placement for severe end-stage COPD. Elevated troponins likely related to demand ischemia due to pneumonia and hypoxia. No chest pain or obvious ischemic changes seen on ECG. Chronic wounds of the left lower extremity, positive for pseudomonas aeruginosa Sjogren's, normally maintained on Plaquenil Chronic anemia. Hemoglobin currently 8.0 g/dL Chronic atrial fibrillation anticoagulated on Xarelto Peripheral vascular disease Hyperlipidemia Hypertension GERD History of left breast cancer status post radiation and lumpectomy Ex-smoker of approximately 50 pack years Plan: The patient was seen and evaluated Medications and labs reviewed She is now requiring BiPAP support Ultrasound of the left chest with a 6.3 cm pocket No plans for thoracentesis at this time On meropenem for pseudomonas Prognosis is poor She is a DO NOT RESUSCITATE/DO NOT INTUBATE CODE STATUS May need to consider hospice/comfort care We will continue to follow I have personally seen and examined the patient, performed the documentation and the assessment and plan as written. Number of minutes spent on the visit: 10.
[2022-09-08] MEDS: FOLIC ACID 1 MG TAB PO SCH (13:12)
[2022-09-08] MEDS: CALCIUM CARBONATE 500 MG CHEWABLE PO SCH (13:12)
--- NOTE | 2022-09-08 16:13 | CDI ---
Documentation Clarification Form Date: 09/08/2022 4:02:12 PM From: Krista Corral RN, CCDS Email: [email or web address] Admit Date: 09/04/2022 12:55:00 PM Patient Name: Franca Betts Visit Number: [id number] Discharge Date: ATTENTION: The Clinical Documentation Specialists (CDI) and [facility] Coding Staff appreciate your assistance in clarifying documentation. Please respond to the clarification below the line at the bottom and electronically sign. The CDI & [facility] Coding staff will review the response and follow-up if needed. Please note: Queries are made part of the Legal Health Record. If you have any questions, please contact the author of this message via ITS. Dr. Marleny Mcdonald Elevated troponin and demand ischemia is documented in the H&P and progress notes. Additional clarification is requested. Patient History/Risk Factors: SOB and weakness [facility]. Currently treated for pneumonia but symptoms worsening and failed outpatient treatment. Clinical Indicators: H&P and progress notes: "Elevated troponins likely related to demand ischemia due to pneumonia and hypoxia." 09/02 Troponin: 0.056 09/02 EKG Results: ST deviation and moderate T-wav abnormality, consider lateral ischemia. 09/02 CXR: Findings consistent with worsening bibasilar pneumonia. Treatment: supplemental oxygen, Duonebs, IV Solumedrol. IV Ceftriaxone x1 on 09/02, IV Azithromycin 500mg 09/02-09/05, IV Meropenem 1gm Q8H 09/07-current. Please clarify: [ ] Type 2 NM due to pneumonia and hypoxia [ ] No additional diagnosis [ ] Unable to determine [ ] Other Condition, please specify Type 2 NM due to pneumonia and hypoxia MTDD
[2022-09-08] MEDS: CHOLECALCIFEROL 25 MCG (1000 IU) TABLET PO SCH (17:09)
[2022-09-08] MEDS: DEXTROSE 5% IN WATER 1,000 ML IV SCH (17:30)
--- NOTE | 2022-09-08 18:19 | P.PN ---
Subjective Progress Note Date: 09/08/22 Principal diagnosis: Pneumonia and left leg wound Patient is a 67-year-old female who was recently admitted at this facility and treated for Pseudomonas bacteremia related to combination of pneumonia and left groin infected wound patient did clear her bacteremia at the patient also have extensive surgery and debridement of the left groin wound patient was [facility] to the [facility] on cefepime 2 g every 8 hours, presented to the hospital with increasing shortness of breath. On today's evaluation, that is 09/08/2022, the patient remains to be afebrile, patient is currently on a BiPAP and lethargic and did not answer any question or vomiting or diarrhea has been reported Objective - Vital Signs Vital signs: Vital Signs Temp 97.6 F 09/08/22 12:00 Pulse 74 09/08/22 12:36 Resp 16 09/08/22 12:00 BP 145/71 09/08/22 12:00 Pulse Ox 91 L 09/08/22 12:00 FiO2 40 09/08/22 12:26 Intake & Output 09/07/22 09/08/22 09/08/22 18:59 06:59 18:59 Intake Total 710 Output Total 450 700 Balance -450 10 Intake: Intake, IV Titration 700 Amount Dextrose 5% in Water 1, 600 000 ml @ 50 mls/hr IV . Q20H PAO Rx#:[id number] Meropenem 1 gm In Sodium 100 Chloride 0.9% 100 ml @ 33 .3 mls/hr IVPB Q8HR PAO Rx#:[id number] Oral 10 Output: Urine 450 700 Other: Voiding Method Indwelling Catheter Indwelling Catheter Indwelling Catheter - Exam GENERAL DESCRIPTION: An elderly female lying in bed in no distress RESPIRATORY SYSTEM: Unlabored breathing , coarse pulses bilaterally HEART: S1 S2 regular rate and rhythm , ABDOMEN: Soft , no tenderness EXTREMITIES: Left leg wound with slough tissue no significant redness or drainage, wound was examined with the patient son at the bedside - Labs CBC & Chem 7: 09/08/22 06:49 09/08/22 06:49 Labs: Abnormal Lab Results - Last 24 Hours (Table) 09/08/22 09/08/22 Range/Units 06:49 06:49 WBC 13.46 H (4.50-10.00) X 10*3/uL RBC 2.76 L (4.10-5.20) X 10*6/uL Hgb 8.3 L (12.0-15.0) g/dL Hct 28.6 L (37.2-46.3) % MCV 103.6 H (80.0-97.0) fL MCHC 29.0 L (32.0-37.0) g/dL RDW 17.0 H (11.5-14.5) % Absolute Nucleated RBC 0.03 H (0.00-0.00) X 10*3/uL Immature Gran # 0.25 H (0.00-0.04) X 10*3/uL Neutrophils # 12.41 H (1.80-7.70) X 10*3/uL Lymphocytes # 0.16 L (0.90-5.00) X 10*3/uL Eosinophils # 0 L (0.04-0.35) X 10*3/uL NRBC/100 WBC Diff 0.2 H (0.0-0.0) /100 WBCS Carbon Dioxide 37.0 H (20.0-27.5) mmol/L Anion Gap 7.00 L (10.00-18.00) mmol/L BUN 29.4 H (9.0-27.0) mg/dL Creatinine 0.5 L (0.6-1.5) mg/dL BUN/Creatinine Ratio 58.80 H (12.00-20.00) Ratio Glucose 181 H (70-110) mg/dL Microbiology - Last 24 Hours (Table) 09/05/22 13:19 Blood Culture - Preliminary Blood No Growth after 48 hours 09/05/22 15:50 Gram Stain - Final Leg - Left Wound Culture - Final Pseudomonas aeruginosa 09/05/22 10:09 Gram Stain - Final Sputum Sputum Culture - Final Pseudomonas aeruginosa Tracey albicans Assessment and Plan (1) Pneumonia Current Visit: Yes Status: Acute Code(s): J18.9 - PNEUMONIA, UNSPECIFIED ORGANISM SNOMED Code(s): 604279062 (2) Non-pressure chronic ulcer of left calf with fat layer exposed Current Visit: No Status: Acute Code(s): L97.222 - NON-PRESSURE CHRONIC ULCER OF LEFT CALF W FAT LAYER EXPOSED SNOMED Code(s): 84340457226240813 Plan: 1patient presented to hospital with increasing shortness of breath could be related to her COPD exacerbation concerning for possible tracheobronchitis versus worsening pneumonia in this patient who is already getting cefepime at the [facility] for her previous bacteremia and the patient did have worsening of her respiratory status requiring BiPAP sputum is growing and resistant Pseudomonas patient to continue with meropenem 2patient left groin wound is almost healed and no evidence of any cellulitis. 3left lower extremity wound did show slough tissue but no significant surrounding redness and local cultures growing drug resistant Pseudomonas , patient to continue with a meropenem , local wound care with Santyl followed by moist dressing changes daily son at the bedside questions were answered Time with Patient: Less than 30
[2022-09-08] MEDS: MORPHINE SULFATE 2 MG/ML SYRINGE IVP PRN (18:58)
[2022-09-08] MEDS: ATORVASTATIN 80 MG TAB PO SCH (21:02)
[2022-09-09 02:16] VITALS: TEMP 98.2
[2022-09-09 04:42] LABS: ABG Base Excess 19.1 mmol/L; ABG Oxygen Saturation 97.6 % (94-97); ABG PCO2 66 mmHg (35-45); ABG PH 7.43 (7.35-7.45); ABG PO2 79 mmHg (83-108); ABG TCO2 46 mmol/L (19-24); Allen Test Performed? Yes
[2022-09-09] MEDS: DILTIAZEM ORAL 30 MG TAB PO SCH ×2 (05:17→14:23)
[2022-09-09 05:24] LABS: ABG HCO3 44 mmol/L (21-25)
[2022-09-09] MEDS: methylPREDNISolone SOD SUCCI 125 MG/2 ML VIAL IV SCH ×3 (05:26→16:20)
[2022-09-09] MEDS: MORPHINE SULFATE 2 MG/ML SYRINGE IVP PRN ×4 (05:27→17:22)
--- NOTE | 2022-09-09 07:14 | PN ---
PROGRESS NOTE DATE OF SERVICE: 09/08/2022 SUBJECTIVE: This is a 67-year-old woman who was admitted with acute bilateral pneumonia, also had significant infection . The patient is on BiPAP at this time. Dr. Robertson is following the patient closely. The patient is no code. OBJECTIVE: VITAL SIGNS: Pulse is 69, blood pressure 126/60, respirations 16. CHEST: A few scattered rhonchi and crackles. ABDOMEN: Soft. LEGS: Significant ulceration present. LABORATORY DATA: Reviewed. ASSESSMENT: 1. Acute bilateral pneumonia, left more than the right with pleural effusion with slow improvement. 2. Acute hypoxic respiratory failure on BiPAP. 3. Left leg severe cellulitis and ulceration with failure of outpatient treatment. 4. Chronic obstructive pulmonary disease acute exacerbation. 5. Resistant pseudomonas. 6. Gait dysfunction. 7. Multiple medical issues. 8. NO CODE, NO CPR. RECOMMENDATIONS AND DISCUSSION: Recommend to continue current management. Continue with current medications. We will closely follow with Dr. Robertson. Prognosis remain guarded because of multiple complex medical issues. Further recommendations to follow. MMODL / IJN: [id number] / MTDD
[2022-09-09] MEDS: IPRATROPIUM 0.5 MG/2.5 ML NEBU INHALATION SCH ×3 (08:19→15:51)
[2022-09-09] MEDS: ADVAIR INHALATION SCH ×2 (08:19→15:51)
[2022-09-09] MEDS ORDERED: ONDANSETRON 4 MG/2 ML VIAL IVP PRN (08:20)
[2022-09-09] MEDS ORDERED: LORazepam 2 MG/ML INJ IV PRN (08:21)
[2022-09-09] MEDS: FUROSEMIDE 10 MG/ML 2 ML VIAL IV SCH (08:48)
[2022-09-09] MEDS: HYDROXYCHLOROQUINE SULFATE 200 MG TAB PO SCH ×2 (09:42→16:20)
[2022-09-09] MEDS: guaiFENesin-DM 600/30MG 1 EACH TAB.ER.12H PO SCH (09:42)
[2022-09-09] MEDS: GABAPENTIN 400 MG CAP PO SCH ×2 (09:42→14:24)
[2022-09-09] MEDS: buPROPion SR 100 MG TABLET.ER PO SCH (09:42)
[2022-09-09] MEDS: POTASSIUM CHLORIDE ER 20 MEQ TAB.ER PO SCH (09:51)
[2022-09-09] MEDS: METOPROLOL TARTRATE 25 MG TAB PO SCH ×2 (09:51→16:20)
[2022-09-09] MEDS: MEROPENEM 1 GM in SODIUM CHLORIDE 0.9% 100 ML IVPB SCH ×2 (09:51→16:19)
[2022-09-09] MEDS: LETROZOLE 2.5 MG TAB PO SCH (09:51)
[2022-09-09] MEDS: HEPARIN SODIUM,PORCINE/PF 5,000 UNIT/0.5 ML SYRINGE SQ SCH (09:52)
[2022-09-09] MEDS: CALCIUM CARBONATE 500 MG CHEWABLE PO SCH (11:06)
[2022-09-09] MEDS: ASPIRIN 81 MG PO SCH (11:06)
[2022-09-09] MEDS: FOLIC ACID 1 MG TAB PO SCH (11:06)
[2022-09-09] MEDS: THIAMINE 100 MG TAB PO SCH (11:07)
[2022-09-09] MEDS: MULTIVITAMINS, THERA 1 EACH TAB PO SCH (11:07)
[2022-09-09] MEDS: COLLAGENASE 250 UNIT/GM OINTMENT 30 GM TUBE TOPICAL SCH (12:24)
--- NOTE | 2022-09-09 12:38 | P.PN ---
Subjective Progress Note Date: 09/09/22 I'm seeing this patient today 09/03/2022 in new consultation on the general medical floor for pneumonia. This is a 67-year-old female patient with an extenisve past medical history of advanced COPD, previous [place] valve insertion, maintained on a combination of Advair, albuterol, and Spiriva outpatient basis, she is oxygen dependent at home on 2 L/m nasal cannula at baseline, iatrogenic pneumothorax, pneumonia, sjogrens, atrial fibrillation anticoagulated Xarelto, and peripheral vascular disease. Patient has had recent left femoral endarterectomy and left femoral to tibial bypass graft complicated by pseudoaneurysm post repair on 08/15/2022. During the stay, the patient ended up developing pneumonia sepsis and spent some time in the intensive care unit. Identified organism at that time was Pseudomonas aeruginosa. Patient did have a prolonged stay, and required rehab at [facility] afterwards. While at [facility], patient was experiencing severe shortness of breath, congested nonproductive co ugh, fevers and chills. Denies chest pain, hemoptysis. Patient failed outpatient treatment for pneumonia, and was transferred to [facility] yesterday evening. Patient is currently resting in bed, on 3 L nasal cannula, in no acute distress. Chest x-ray on arrival showed left greater than right bibasilar acute infiltrates, some stable cardiomegaly, and chronic emphysematous changes. CBC on arrival shows leukocytosis with a WBC count of 15.1, hemoglobin 9.6, hematocrit 30.7, platelets 138,000. BMP on arrival shows sodium 140, potassium 4, chloride 95, serum CO2 chronically elevated at 41, BP 127, creatinine 0.54, glucose 116. Troponin was mildly elevated at 0.056. No obvious ischemic changes on ECG. ProBNP 2340. Patient is receiving home dose of Lasix 20 mg twice a day. Patient was negative for COVID-19 on arrival. A pro calcitonin level is pending. Patient is covered with a combination of azithromycin and cefepime. Afebrile for now. Patient does have a chronic left leg wound, in which she normally follows up with wound care. Vital signs are stable. The patient is seen today 09/05/2022 in follow-up on the regular medical floor. She is currently sitting up in bed. Awake and alert in no acute distress. Maintaining O2 saturations in the 90s on 2 L/m per nasal cannula. Afebrile. Hemodynamically stable. Ultrasound of the chest did not reveal any free flowing fluid for thoracentesis. There was noted lung tissue within the fluid. White count 9.5. Hemoglobin 8.0. Platelets 134. Sodium 150. Potassium 3.6. Bicarb 41. BUN 23. Creatinine 0.4. Glucose 145. Pro calcitonin 0.26. She is continued on bronchodilators, IV Solu-Medrol, antibiotics in the form of cefepime and azithromycin. Anticoagulated with Xarelto. The patient is seen today 09/06/2022 in follow-up on the regular medical floor. She is resting comfortably in bed. Awake and alert in no acute distress. Doing a bit better today compared to yesterday. Less shortness of breath. Less cough and congestion. Maintaining O2 saturations in the 90s on 2 L/m per nasal cannula. She's been afebrile. Hemodynamically stable. Chest x-ray continues to revealed bilateral consolidation and pleural effusions greater on the left superimposed on COPD. Right-sided PICC line remains in place. Sputum Gram stain with preliminary gram-negative bacilli, Candidus albicans. Left leg wound culture pending. White count 10.7. Hemoglobin 8.9. Platelets 177. Sodium 142. Potassium 4.0. Bicarb 41. BUN 30. Creatinine 0.52. She is continued on bronchodilators, IV Solu-Medrol, antibiotics in the form of cefepime. Anticoagulated with Xarelto. The patient is seen today 09/07/2022 in follow-up on the regular medical floor. Throughout this framing and hanging she is developing increasing shortness of breath and increasing oxygen requirements. Chest x-ray continues show bilateral consolidation and pleural effusion left greater than right. Sputum culture is positive for pseudomonas aeruginosa. Left leg wound culture positive for pseudomonas aeruginosa. She was switched to meropenem. Continued on IV Solu- Medrol and bronchodilators. Anticoagulated with Xarelto. Ultrasound of the left chest today reveals a 6.3 cm pocket. She was placed on BiPAP 12/6 at 40% FiO2. The patient is seen today 09/08/2022 in follow-up on the regular medical floor. She is currently on BiPAP 12/6 at 40% FiO2. This is less responsive today compared to yesterday. Her left-sided ultrasound of the chest revealed a small 6.3 cm pocket. No plans for thoracentesis. She is not taking any oral medica tions. Her family is at the bedside. She is a DO NOT RESUSCITATE/DO NOT INTUBATE CODE STATUS. She is continued on bronchodilators, IV Solu-Medrol, IV diuretics. Left wound culture positive for pseudomonas aeruginosa. Sputum cultures positive for pseudomonas aeruginosa. Currently on meropenem. White count 13.4. Hemoglobin 8.3. Platelets 163. Sodium 141. Potassium 4.2. A 37. BUN 29. Creatinine 0.5. Glucose 181. The patient is seen today 09/09/2022 in follow-up on the regular medical floor. She is continued to deteriorate mentally. Sometimes hollering out that she wants to alternating with episodes of being obtunded. She is currently off the BiPAP and on X liters nasal cannula. Arterial blood gases revealed a pO2 of 79, pCO2 66 and a pH of 7.43 on 40% FiO2. She is continued on meropenem, bronchodilators, IV Solu-Medrol, IV diuretics. Her and son are at the [facility]. They're considering hospice/comfort care. Objective - Vital Signs Vital signs: Vital Signs Temp 98.2 F 09/09/22 01:10 Pulse 60 09/09/22 08:00 Resp 15 09/09/22 08:00 BP 173/90 09/09/22 07:35 Pulse Ox 97 09/09/22 07:35 FiO2 40 09/09/22 04:16 Intake & Output 09/08/22 09/09/22 09/09/22 18:59 06:59 18:59 Output Total 600 600 Balance -600 -600 Weight 53.5 kg Output: Urine 600 600 Other: Voiding Method Indwelling Catheter Indwelling Catheter Indwelling Catheter - Exam GENERAL EXAM: Arousable, frail 67-year-old female, on 6 L high flow nasal cannula alternating with BiPAP /6 at 40% FiO2. In mild respiratory distress. HEAD: Normocephalic and atraumatic EYES: Normal reaction of pupils, equal size. NOSE: Clear with pink turbinates. THROAT: No erythema or exudates. NECK: No masses, no JVD. CHEST: No chest wall deformity. LUNGS: Equal air entry with diffuse bilateral rhonchi and expiratory wheezes throughout. CVS: S1 and S2 normal with no audible murmur, regular rhythm. No extra heart sounds ABDOMEN: No hepatosplenomegaly, active bowel sounds, no guarding or rigidity. SPINE: No scoliosis or deformity SKIN: No rashes. Left femoral open wound healing by secondary intention. There is also a left anterior lower extremity wound with purulent drainage. CENTRAL NERVOUS SYSTEM: No focal deficits, tone is normal in all 4 extremities. EXTREMITIES: Right upper extremity PICC line in place. There is no peripheral edema, clubbing, or cyanosis. Peripheral pulses are faint but palpable. - Labs CBC & Chem 7: 09/08/22 06:49 09/08/22 06:49 Labs: Abnormal Lab Results - Last 24 Hours (Table) 09/09/22 Range/Units 04:37 ABG pCO2 66 H (35-45) mmHg ABG pO2 79 L (83-108) mmHg ABG HCO3 44 H* (21-25) mmol/L ABG Total CO2 46 H (19-24) mmol/L ABG O2 Saturation 97.6 H (94-97) % Microbiology - Last 24 Hours (Table) 09/05/22 13:19 Blood Culture - Preliminary Blood No Growth after 72 hours Assessment and Plan Assessment: Healthcare associated pneumonia, failing outpatient treatment at [facility]. Sputum culture again positive for pseudomonas aeruginosa, Tracey albicans. She's been switched to meropenem on cefepime today. Patient has had recent left lower lobe pneumonia with Pseudomonas aeruginosa being the isolated organism. Acute COPD exacerbation secondary to above. Normally maintained with a combination of Spiriva, Advair, and albuterol inhalers. Acute on chronic hypoxemic and hypercapnic respiratory failure. Normally maintained on 2 L per minute nasal cannula home O2. Currently requiring BiPAP support History of [place] valve placement for severe end-stage COPD. Elevated troponins likely related to demand ischemia due to pneumonia and hypoxia. No chest pain or obvious ischemic changes seen on ECG. Chronic wounds of the left lower extremity, positive for pseudomonas aeruginosa Sjogren's, normally maintained on Plaquenil Chronic anemia. Hemoglobin currently 8.0 g/dL Chronic atrial fibrillation anticoagulated on Xarelto Peripheral vascular disease Hyperlipidemia Hypertension GERD History of left breast cancer status post radiation and lumpectomy Ex-smoker of approximately 50 pack years Plan: The patient was seen and evaluated Medications and ABG reviewed Patient's condition has continued to deteriorate Her and son are at the bedside She is a DO NOT RESUSCITATE/DO NOT INTUBATE CODE STATUS May consider hospice/comfort care I have personally seen and examined the patient, performed the documentation and the assessment and plan as written. Number of minutes spent on the visit: 10.
[2022-09-09] MEDS: PANTOPRAZOLE 40 MG/10 ML VIAL IVP SCH (13:13)
--- NOTE | 2022-09-09 15:21 | P.PN ---
Subjective Progress Note Date: 09/09/22 Principal diagnosis: Pneumonia and left leg wound Patient is a 67-year-old female who was recently admitted at this facility and treated for Pseudomonas bacteremia related to combination of pneumonia and left groin infected wound patient did clear her bacteremia at the patient also have extensive surgery and debridement of the left groin wound patient was discharged to the assisted on cefepime 2 g every 8 hours, presented to the hospital with increasing shortness of breath. On today's evaluation, that is 09/09/2022, the patient continues to be afebrile, patient remains to be lethargic however has been switched over to 6 L nasal cannula oxygen no vomiting diarrhea or any other changes has been reported Objective - Vital Signs Vital signs: Vital Signs Temp 98.2 F 09/09/22 01:10 Pulse 60 09/09/22 08:00 Resp 15 09/09/22 08:00 BP 173/90 09/09/22 07:35 Pulse Ox 97 09/09/22 07:35 FiO2 40 09/09/22 04:16 Intake & Output 09/08/22 09/09/22 09/09/22 18:59 06:59 18:59 Output Total 600 600 Balance -600 -600 Weight 53.5 kg Output: Urine 600 600 Other: Voiding Method Indwelling Catheter Indwelling Catheter Indwelling Catheter - Exam Elderly female lying in bed in no distress - Labs CBC & Chem 7: 09/08/22 06:49 09/08/22 06:49 Labs: Abnormal Lab Results - Last 24 Hours (Table) 09/09/22 Range/Units 04:37 ABG pCO2 66 H (35-45) mmHg ABG pO2 79 L (83-108) mmHg ABG HCO3 44 H* (21-25) mmol/L ABG Total CO2 46 H (19-24) mmol/L ABG O2 Saturation 97.6 H (94-97) % Microbiology - Last 24 Hours (Table) 09/05/22 13:19 Blood Culture - Preliminary Blood No Growth after 72 hours Assessment and Plan (1) Pneumonia Current Visit: Yes Status: Acute Code(s): J18.9 - PNEUMONIA, UNSPECIFIED ORGANISM SNOMED Code(s): 964690492 (2) Non-pressure chronic ulcer of left calf with fat layer exposed Current Visit: No Status: Acute Code(s): L97.222 - NON-PRESSURE CHRONIC ULCER OF LEFT CALF W FAT LAYER EXPOSED SNOMED Code(s): 19987304553002902 Plan: 1patient presented to hospital with increasing shortness of breath could be related to her COPD exacerbation concerning for possible tracheobronchitis versus worsening pneumonia in this patient who is already getting cefepime at the assisted for her previous bacteremia and the patient did have worsening of her respiratory status requiring BiPAP sputum is growing and resistant Pseudomonas patient to continue with meropenem , patient seemed to have overall worse prognosis and apparently pulmonary has talked to the family with a possible plan for hospice a body can be discontinued at that point 2patient left groin wound is almost healed and no evidence of any cellulitis. 3left lower extremity wound did show slough tissue but no significant surrounding redness and local cultures growing drug resistant Pseudomonas , juice ent to continue with a meropenem , local wound care with Santyl followed by moist dressing changes daily Which can be discontinued if the patient is switched to hospice Family the bedside questions were answered Time with Patient: Less than 30
[2022-09-09] MEDS: DEXTROSE 5% IN WATER 1,000 ML IV SCH (16:16)
[2022-09-09] MEDS: CHOLECALCIFEROL 25 MCG (1000 IU) TABLET PO SCH (16:20)
[2022-09-09 16:34] VITALS: BP 104/70; PULSE 103; RESP 20
--- NOTE | 2022-09-10 08:12 | PN ---
PROGRESS NOTE DATE OF SERVICE: 09/09/2022 SUBJECTIVE: This is a 67-year-old woman who was admitted with acute bilateral pneumonia the patient was actually worsening and family is considering comfort care versus hospice. OBJECTIVE: VITAL SIGNS: Pulse is 103, blood pressure n respirations 20. CHEST: Bilateral scattered rhonchi and crackles. ABDOMEN: Soft. NERVOUS SYSTEM: No focal deficits. LABORATORY DATA: Reviewed. ASSESSMENT: 1. Acute bilateral pneumonia, left more than the right with pleural effusion with slow improvement. 2. Acute hypoxic respiratory failure on BiPAP. 3. Left leg severe cellulitis, ulceration with failure of outpatient treatment. 4. Chronic obstructive pulmonary disease exacerbation. 5. Persistent Pseudomonas. 6. Gait dysfunction. 7. Multiple medical issues. 8. No code. No CPR. the patient is currently no code. Family is considering comfort measures. Closely follow with multiple consultants. Prognosis extremely guarded.. Further recommendations to follow. MMODL / IJN: [id number] / KUSHAL
--- NOTE | 2022-09-13 06:16 | CDI ---
Documentation Clarification Form Date: From: Bernadine Ly Phone: Admit Date: 09/04/2022 12:55:00 PM Patient Name: Franca Betts Visit Number: [id number] Discharge Date: 09/09/2022 6:38:00 PM ATTENTION: The Clinical Documentation Specialists (CDI) and [facility] Coding Staff appreciate your assistance in clarifying documentation. Please respond to the clarification below the line at the bottom and electronically sign. The CDI & [facility] Coding staff will review the response and follow-up if needed. Please note: Queries are made part of the Legal Health Record. If you have any questions, please contact the author of this message via ITS. Dr. Marleny Mcdonald, Your patient has the documented diagnosis of unspecified CHF in the ED Note. Additional information regarding the type & acuity of CHF is requested History/Risk Factors: HTN, pneumonia, Type II FL, ulcers of left lower extremity, T2DM w ASPVD and skin ulcers, COPD, chronic atrial fibrillation Clinical Indicators: Presents with shortness of breath and weakness. VS/Pulse OX: T 98.2, P 84, R22/24, BP 104/67, O2 98 (NC 5L) BNP: 2340 08/07/22 Echocardiogram Results: Mild to moderately increased left ventricular wall thickness. Left ventricular ejection fraction 55-60% 09/03/22 Chest X Ray: Chronicemphysematouschange and mildcardiomegalywith left greater than right bibasilar acuteinfiltrateand/oratelectasisredemonstrated. Left basilar findings stable. Right basilar findings slightly improved from one day earlier. 09/04/22 Chest US: Bilateral pleural effusions Treatment: IV Furosemide 40 mg (09/02-once), IV Furosemide 20 mg (09/07-09/08), Furosemide 20 mg PO (09/03-09/07) In your professional opinion, can you please clarify the [acuity and type] of CHF if known? [ ] Acute Systolic Heart Failure (reduced EF) [ ] Chronic Systolic Heart Failure (reduced EF) [ ] Acute on Chronic Systolic Heart Failure (reduced EF) [ ] Acute Diastolic Heart Failure (preserved EF) [ ] Chronic Diastolic Heart Failure (preserved EF) [ x ] Acute on Chronic Diastolic Heart Failure (preserved EF) [ ] Acute Systolic & Diastolic Heart Failure [ ] Chronic Systolic & Diastolic Heart Failure [ ] Acute on Chronic Heart Failure Systolic & Diastolic Heart Failure [ ] Other, please specify [ ] Unable to determine MTDD
== END 2022-09-09 18:38 | disposition hospice, inpatient (51) | DRG 177 ==
LOC: EC 15:28 → 5NMEDONC 17:37 → OBSVTOIN 09-04 12:55
PROVIDERS: ADMIT Hospitalist; ATTEND Hospitalist
PROC: 5A09457 Assistance with Respiratory Ventilation, 24-96 Consecutive Hours, Continuous Positive Airway Pressure (ICD-10-PCS; principal; 2022-09-07)
DX: J15.1 Pneumonia due to Pseudomonas (principal); I21.A1 Myocardial infarction type 2; J96.21 Acute and chronic respiratory failure with hypoxia; J96.22 Acute and chronic respiratory failure with hypercapnia; I50.33 Acute on chronic diastolic (congestive) heart failure; L89.893 Pressure ulcer of other site, stage 3; L89.523 Pressure ulcer of left ankle, stage 3; E11.52 Type 2 diabetes mellitus with diabetic peripheral angiopathy with gangrene; L03.116 Cellulitis of left lower limb; I48.20 Chronic atrial fibrillation, unspecified; L97.822 Non-pressure chronic ulcer of other part of left lower leg with fat layer exposed; L97.122 Non-pressure chronic ulcer of left thigh with fat layer exposed; J44.0 Chronic obstructive pulmonary disease with (acute) lower respiratory infection; J44.1 Chronic obstructive pulmonary disease with (acute) exacerbation; Z16.24 Resistance to multiple antibiotics; E11.622 Type 2 diabetes mellitus with other skin ulcer; I11.0 Hypertensive heart disease with heart failure; I70.241 Atherosclerosis of native arteries of left leg with ulceration of thigh; I70.242 Atherosclerosis of native arteries of left leg with ulceration of calf; I70.243 Atherosclerosis of native arteries of left leg with ulceration of ankle; M35.00 Sjogren syndrome, unspecified; Z51.5 Encounter for palliative care; Z66 Do not resuscitate; Z20.822 Contact with and (suspected) exposure to COVID-19; Y95 Nosocomial condition; K59.00 Constipation, unspecified; E86.0 Dehydration; E78.5 Hyperlipidemia, unspecified; F41.9 Anxiety disorder, unspecified; K21.9 Gastro-esophageal reflux disease without esophagitis; D64.9 Anemia, unspecified; R26.9 Unspecified abnormalities of gait and mobility; M81.0 Age-related osteoporosis without current pathological fracture; Z99.81 Dependence on supplemental oxygen; Z79.82 Long term (current) use of aspirin; Z79.01 Long term (current) use of anticoagulants; Z79.811 Long term (current) use of aromatase inhibitors; Z79.51 Long term (current) use of inhaled steroids; Z79.899 Other long term (current) drug therapy; Z87.891 Personal history of nicotine dependence; Z92.3 Personal history of irradiation; Z85.3 Personal history of malignant neoplasm of breast; Z95.820 Peripheral vascular angioplasty status with implants and grafts; Z95.3 Presence of xenogenic heart valve; Z88.1 Allergy status to other antibiotic agents; Z91.041 Radiographic dye allergy status; Z88.5 Allergy status to narcotic agent; Z88.0 Allergy status to penicillin; Z88.8 Allergy status to other drugs, medicaments and biological substances; Z91.018 Allergy to other foods
CPT/HCPCS: 36415; 36600; 71045; 71046; 76604; 80048; 80053; 82805; 83605; 83735; 83880; 84145; 84484; 85025; 85610; 85730; 86140; 87040; 87070; 87077; 87186; 87205; 87635; 93005; 94640; 94660; 94667; 94760; 96365; 99285

== ENCOUNTER 2022-09-09 18:44 | Inpatient (IN) | payer BC, MEDICAID, MEDICARE ==
[2022-09-09] MEDS ORDERED: GLYCOPYRROLATE 0.2 MG/ML 2 ML VIAL IVP PRN (18:57)
[2022-09-09] MEDS ORDERED: ONDANSETRON 4 MG/2 ML VIAL IVP PRN (18:57)
[2022-09-09] MEDS ORDERED: ACETAMINOPHEN SUPPOSITORY 650 MG SUPP RECTAL PRN (18:57)
[2022-09-09] MEDS ORDERED: bisacodyL 10 MG SUPP RECTAL PRN (19:02)
[2022-09-09] MEDS: LORazepam 2 MG/ML INJ IV PRN (19:31)
[2022-09-09] MEDS ORDERED: SCOPOLAMINE 1 MG/72 HR PATCH TRANSDERM SCH (20:00)
[2022-09-09] MEDS: MORPHINE SULFATE 2 MG/ML SYRINGE IV PRN (20:52)
[2022-09-10] MEDS: MORPHINE SULFATE 2 MG/ML SYRINGE IV PRN ×3 (00:07→06:30)
[2022-09-10] MEDS: LORazepam 2 MG/ML INJ IV PRN ×4 (00:14→16:04)
[2022-09-10] MEDS ORDERED: MORPHINE SULFATE (100 MG/2 ML) 100 MG in SODIUM CHLORIDE 0.9% 100 ML IV SCH (09:00)
--- NOTE | 2022-09-10 13:09 | PN ---
PROGRESS NOTE DATE OF SERVICE: 09/10/2022 SUBJECTIVE: This is a 67-year-old woman, who was admitted with significant bilateral pneumonia and acute hypoxic respiratory failure with ulceration of the left leg, is on comfort measure system. The patient has been started on morphine 2 mg/hour. The patient is comfortable. OBJECTIVE: GENERAL: The patient is resting comfortably. HEENT: Some minimal laryngeal sounds are audible. LABORATORY DATA: Not available. ASSESSMENT: 1. Acute bilateral pneumonia, left more than right, with pleural effusion with slow improvement. 2. Acute hypoxic respiratory failure, status post BiPAP. 3. Left leg severe cellulitis and ulceration. 4. Chronic obstructive pulmonary disease exacerbation. 5. Persistent Pseudomonas. 6. Gait dysfunction. 7. Multiple medical issues. 8. NO CODE, NO CPR. 9. Comfort measures and hospice. RECOMMENDATIONS: Recommend to continue current management. Continue with morphine drip. Discussed with family. Continue with comfort measures. Prognosis is extremely guarded. Further recommendations to follow. MMMARELYL / SANDRAN: [id number] /
--- NOTE | 2022-09-10 20:18 | DS ---
DISCHARGE SUMMARY PRELIMINARY CAUSE OF : COPD. OTHER CONTRIBUTORY FACTORS: 1. Acute bilateral pneumonia, left more than the right with pleural effusion and slow improvement. 2. Acute hypoxic respiratory failure, status post BiPAP. 3. Left leg severe cellulitis and ulceration. 4. Persistent Pseudomonas. 5. Gait dysfunction. 6. Multiple medical issues. HISTORY OF PRESENT ILLNESS: This is a 67-year-old woman with a past medical history of multiple medical problems, admitted with COPD acute exacerbation, bilateral pneumonia as well as significant ulceration and Pseudomonas that was resistant and the patient was given intensive bronchodilators and antibiotics were used. Seen by Pulmonary and Infectious Disease. The patient was treated in conjunction with multiple consultants and extensive discussion was held with the family. The patient did not make any improvement at all. The patient apparently declined in general status and became more short of breath. BiPAP has to be used. Once again after discussion with the family, the patient was transitioned to hospice for comfort measures and the patient succumbed to her above- mentioned multiple complex medical issues. The prognosis remained extremely guarded throughout the hospital stay. Please refer to the previous history and physical discharge notes, staff notes, and consultation notes for further information. MMODL / IJN: [id number] /
== END 2022-09-10 18:58 | disposition expired | DRG 951 ==
LOC: 5NMEDONC 18:44
PROVIDERS: ADMIT Hospitalist; ATTEND Hospitalist
DX: Z51.5 Encounter for palliative care (principal); J15.1 Pneumonia due to Pseudomonas; B37.1 Pulmonary candidiasis; J96.01 Acute respiratory failure with hypoxia; J44.1 Chronic obstructive pulmonary disease with (acute) exacerbation; J44.0 Chronic obstructive pulmonary disease with (acute) lower respiratory infection; L03.116 Cellulitis of left lower limb; L97.929 Non-pressure chronic ulcer of unspecified part of left lower leg with unspecified severity; B96.5 Pseudomonas (aeruginosa) (mallei) (pseudomallei) as the cause of diseases classified elsewhere; Z66 Do not resuscitate; J44.9 Chronic obstructive pulmonary disease, unspecified; Z91.041 Radiographic dye allergy status; Z91.018 Allergy to other foods; Z88.0 Allergy status to penicillin